=== PATIENT | male | born 1955 | race Caucasian/White ===

== ENCOUNTER 2023-01-05 12:12 | Outpatient (OUT) | payer BC, SELFPAY ==
--- NOTE | 2023-01-05 12:29 | XR_ITS ---
The [address] [address] Patient Name: KATHERINE PONCE MRN: [id number] date: 1955 Sex: M Assigned Patient Location: LAB Current Patient Location: LAB Accession/Order Number: [id number] Exam Date: 01/05/2023 12:25 Report Date: 01/05/2023 12:53 At the request of: SHARLA ARRIAZA Procedure: XR abdomen 1V EXAM: XR abdomen 1V HISTORY: Kidney Stone COMPARISON: None. TECHNIQUE: AP view of the abdomen. FINDINGS: Nonobstructive bowel gas pattern is noted. There is a 15 mm calculus projecting over the right kidney. The osseous structures are intact. XR/XR abdomen 1V IMPRESSION: Nonobstructive bowel gas pattern. Right nephrolithiasis. Electronically authenticated by: SIMI HAQUE Date: 01/05/2023 12:53
[2023-01-06 02:07] LABS: PSA, Free 0.88 ng/mL; Prostate Specific Ag 5.2 ng/mL (0.0-4.0)
== END 2023-01-05 12:13 | disposition home or self-care (01) ==
LOC: LAB 12:16
PROVIDERS: Visit Provider Urology
DX: R97.20 Elevated prostate specific antigen [PSA] (principal); N20.0 Calculus of kidney
CPT/HCPCS: 36415; 74018; 84153; 84154

== ENCOUNTER 2023-01-19 09:20 | Outpatient (OUT) | payer BC, SELFPAY ==
--- NOTE | 2023-01-19 09:36 | CT_ITS ---
The [address] [address] Patient Name: KATHERINE PONCE MRN: [id number] date: 1955 Sex: M Assigned Patient Location: CT Current Patient Location: CT Accession/Order Number: [id number] Exam Date: 01/19/2023 09:30 Report Date: 01/19/2023 10:05 At the request of: SHARLA ARRIAZA Procedure: CT abdomen pelvis wo con CT abdomen pelvis wo con, 01/19/2023 9:30 AM EDT, [facility]001 INDICATION: N20.0 right flank discomfort. History of renal calculi. COMPARISON: CT from 07/28/2022. TECHNIQUE: Helical images were obtained without intravenous contrast. Coronal and sagittal reconstructions were also generated. Dose reduction techniques were achieved by using automated exposure control and/or adjustment of mA and/or kV according to patient size and/or use of iterative reconstruction technique. Oral contrast: None. FINDINGS: There is minimal scarring in the left lower lobe. Note is again made of an approximately 6.5 x 5.1 cm sharply marginated fluid density collection in the right cardiophrenic angle likely representing a pericardial cyst, not completely imaged on this exam. Subcentimeter hypodense focus is again seen in the left hepatic lobe, indeterminate due to its small size, likely representing a cyst. The gallbladder appears unremarkable. The pancreas is within normal limits. The spleen appears unremarkable. The adrenal glands appear unremarkable. Nonobstructing renal calculi are again seen bilaterally. An 8 mm calculus previously seen in the inferior pole of the right kidney is no longer identified, with apparent interval passage. No significant interval change is seen in right renal cysts, the largest measuring 7 cm diameter. The vasculature appears unremarkable. There is no pathologic retroperitoneal adenopathy. The urinary bladder appears unremarkable. Note is again made of prominent prostate gland measuring 5.8 cm transverse. There is no evidence of pathologic pelvic adenopathy. There is no evidence of free air or free fluid. The bowel loops appear unremarkable. The appendix is not definitely visualized. No significant hernia is identified. The osseous structures appear unremarkable. CT/CT abdomen pelvis wo con IMPRESSION: Bilateral renal calculi are again noted. There has been apparent interval passage of an 8 mm calculus previously seen in the right kidney. No hydronephrosis or perinephric process is seen. 7 cm right renal cyst is again noted. Incidental findings, including an apparent pericardial cyst which is incompletely imaged on this exam. Electronically authenticated by: SIENNA HENRIQUEZ Date: 01/19/2023 10:05
== END 2023-01-19 09:21 | disposition home or self-care (01) ==
LOC: CT 09:20
PROVIDERS: Visit Provider Urology
DX: N20.0 Calculus of kidney (principal); N28.1 Cyst of kidney, acquired
CPT/HCPCS: 74176

== ENCOUNTER 2023-06-29 11:22 | Outpatient (OUT) | payer BC, SELFPAY ==
--- OUTSIDE RECORDS SUMMARY | 2023-06-29 11:31 | XMS_ITS | CCD ---
Author Organization [facility] Care Team Providers Care Operational Intelligence Officer Name Role Phone MONICA PARHAM Primary Care Physician Unavailab DO Krishna Beasley Attending Provider [phone] DO Monica Parham Primary Care Provider Monica Parham Primary Care Unavailable Krishna Solorio Attending UnavailKrishna Shoemaker Admitting Unavailabl e SOFIYA ., DR MAGDALENO Admitting Unavailable MONTIEL ., DR MAGDALENO Consulting Unavailable MONTIEL ., DR MAGDALENO Attending Unavailable WINTER EHRNÁNDEZ Consulting Unavailable REQUEST, DR NONE LISTED Consulting Unavaila ble MONTIEL ., DR MAGDALENO Admitting Unavailable MISC, DR HOWARD Primary Care Unavailable MONTIEL ., DR MAGDALENO Consulting Unavailable MONTIEL ., DR MAGDALENO Attending Unavailable WINTER HERNÁNDEZ Consulting Unavailable MONTIEL ., DR MAGDALENO Admitting Unavailable REQUEST, DR NONE LISTED Primary Care Unavaila ble MONTIEL ., DR MAGDALENO Consulting Unavailable MONTIEL ., DR MAGDALENO Attending Unavailable ZIEBER, DR JOHANNA Layton Consulting Unavailable MADISON BROUSSARD Consulting Unavailable JOHANNA MCDOWELL Consulting Unavailable CHANA, DR GIOVANNY Beaulieu Consulting Unavailable DONALD BHAGAT Admitting Unavailable DONALD BHAGAT Attending Unavailable ARTHUR ONTIVEROS Consulting Unavailable LEOLADONALD Consulting Unavailable CHANA, DR GIOVANNY Beaulieu Consulting Unavailable DONALD BHAGAT Admitting Unavailable DONALD BHAGAT Attending Unavailable DONALD BHAGAT Consulting Unavailable SARAVANANC, DR HOWARD Primary Care Unavailable MONTIEL ., DR MAGDALENO Admitting Unavailable MONTIEL ., DR MAGDALENO Consulting Unavailable MONTIEL ., DR MAGDALENO Attending Unavailable PEDRO II, SHANIA Consulting Unavailable CLEOPATRA DAVIDSON Consulting Unavailable TERA, DR HOWARD Primary Care Unavailable CHANA, DR GIOVANNY Beaulieu Consulting Unavailable DIAB ., SANTHOSH Admitting Unavailable DIAB ., SANTHOSH Attending Unavailable GRECHNY ., BETTY ROCKWELL Consulting Unavailabl e MISC, DR HOWARD Primary Care Unavailable SHAYNA, DR JOE Cardona Admitting Unavailcallie CORRAL, DR JOE Cardona Attending Unavailcallie e SHAYNA, DR JOE Cardona Consulting Unavailabl e CYNTHIA, DR JOHANNA Layton Consulting Unavailable Jose Alfredo , Keerthi Lopez Primary Care Provider [phone] BRITT REYES Attending Unavailable JOSE ALFREDO, MUHAMID M Attending Unavailable JOSE ALFREDO, MUHAMID M Referring Unavailable JOSE ALFREDO, MUHAMID M Primary Care Unavailable JOSE ALFREDO, MUHAMID M Attending Unavailable JOSE ALFREDO, MUHAMID M Referring Unavailable JOSE ALFREDO, MUHAMID M Primary Care Unavailable JOSE ALFREDO, MUHAMID M Attending Unavailable JOSE ALFREDO, MUHAMID M Referring Unavailable JOSE ALFREDO, MUHAMID M Primary Care Unavailable JOSE ALFREDO, MUHAMID M Attending Unavailable CORI, MONICA G Referring Unavailable CORI, MONICA G Primary Care Unavailable JEANA PARRA Attending Unavailable JOSE ALFREDO, MUHAMID M Referring Unavailable JOSE ALFREDO, MUHAMID M Primary Care Unavailable CORI, MONICA Primary Care Unavailable Sharla MONTIEL Attending Unavailable CORI, MONICA Primary Care Unavailable MONTIEL, Sharla Layton Attending Unavailable CORI, MONICA Primary Care Unavailable MONTIEL, Sharla Layton Attending Unavailable CORI, MONICA Primary Care Unavailable MONTIEL, Sharla Layton Attending Unavailable MONTIEL, Sharla Layton Admitting Unavailable CORI, MONICA Primary Care Unavailable MONTIEL, Sharla Layton Attending Unavailable CORI, MONICA Primary Care Unavailable MONTIEL, Sharla Layton Attending Unavailable CORI, MONICA Primary Care Unavailable MONTIEL, Sharla Layton Attending Unavailable CORI, MONICA Primary Care Unavailable MONTIEL, Sharla Layton Attending Unavailable Allergies Allergy Classification Reported Allergen(s) Allergy Type Date of Onset Reaction(s) Facility (10 sources) Sulfamethoxazole / Trimethoprim; Translations: [sulfamethoxazole-t rimethoprim] Drug Allergy Unknown (qualifier value) [facility] (10 sources) Sulfonamides (Antibiotic); Translations: [sulfa drugs] Drug allergy Itching (finding), Weal (disorder) [facility] (3 sources) Sulfonamides (Antibiotic); Translations: [SULFA (SULFONAMIDE ANTIBIOTICS)] Drug allergy (disorder) 09-22-19 17 [facility] (1 source) Sulfonamides (Antibiotic) Drug allergy (disorder) 08-23-19 17 [facility] (3 sources) Sulfonamides (Antibiotic) Propensity to adverse reactions to drug 09-22-19 17 [facility] Medications Current Medications Medication Drug Class(es) Dates Sig (Normalized) Sig (Original) acetaminophen 325 mg / HYDROcodone bitartrate 5 mg oral tablet (1 source) Opioid Agonist Start: 06-12-2018 Hydrocodone-Acetamin ophen Active TABLET June 11, 2018 11:00pm cholecalciferol, vitamin D3, (VITAMIN D3 ORAL) (3 sources) take 1 tablet by mouth in the morning cholecalciferol, vitamin D3, (VITAMIN D3 ORAL) Take 1 tablet by mouth in the morning. 0 Active ciprofloxacin 500 mg oral tablet (1 source) Quinolone Antimicrobial Start: 05-23-2023 End: 06-02-2023 take 1 tablet by mouth in the morning, then take 1 tablet by mouth at bedtime ciprofloxacin HCl (CIPRO) 500 mg tablet Take 1 tablet (500 mg total) by mouth in the morning and 1 tablet (500 mg total) before bedtime. Do all this for 10 days. 20 tablet 0 05/23/2023 06/02/2023 Active docosahexaenoic acid/epa (FISH OIL ORAL) (3 sources) take 3 capsules by mouth in the morning docosahexaenoic acid/epa (FISH OIL ORAL) Take 3 capsules by mouth in the morning. 0 Active doxycycline hyclate 100 mg oral capsule (1 source) Tetracycline-class Drug Start: 09-18-2022 End: 10-02-2022 take 1 capsule by mouth twice daily doxycycline hyclate 100 mg Cap 100 mg = 1 cap(s), Oral, BID, X 14 day(s), # 28 cap(s), Refills(s) 0, Pharmacy: [facility]/pharmacy #[id number], 179, cm, 05/01/22 9:25:00 EST, Height/Length Dosing, 88, kg, 05/01/22 9:25:00 EST, Weight Dosing Start Date: 09/18/22 Stop Date: 10/02/22 Status: Ordered dutasteride 0.5 mg oral capsule (4 sources) 5-alpha Reductase Inhibitor Start: 10-09-2022 take 1 capsule by mouth once daily dutasteride 0.5 mg Cap 0.5 mg = 1 cap(s), Oral, Daily, # 30 cap(s), Refills(s) 11, Pharmacy: [facility] #[id number], 178, cm, 10/09/22 8:32:00 EDT, Height/Length Dosing, 91, kg, 10/09/22 8:32:00 EDT, Weight Dosing Start Date: 10/09/22 Status: Ordered Fish Oils (9 sources) Start: 08-17-2021 Fish Oil Oral, Refill(s) 0 Start Date: 08/17/21 Status: Ordered ibuprofen 800 mg oral tablet (1 source) Nonsteroidal Anti-inflammatory Drug Start: 05-23-2023 ibuprofen (MOTRIN) 800 mg tablet Take 1 tablet (800 mg total) by mouth in the morning and 1 tablet (800 mg total) at noon and 1 tablet (800 mg total) in the evening. 30 tablet 0 05/23/2023 Active 1 ml ixekizumab 80 mg/ml auto-injector (3 sources) Interleukin-17A Antagonist Start: 10-17-2021 TALTZ AUTOINJECTOR 80 mg/mL auto-injector Inject 80 mg under the skin every 28 days. 0 10/17/2021 Active levoFLOXacin 500 mg oral tablet (1 source) Quinolone Antimicrobial Start: 05-01-2022 End: 05-15-2022 take 1 tablet by mouth once daily Levaquin 500 mg Tab 500 mg = 1 tab(s), Oral, Daily, X 14 day(s), # 14 tab(s), Refills(s) 0, Pharmacy: [facility]/pharmacy #[id number], 179, cm, 05/01/22 9:25:00 EST, Height/Length Dosing, 88, kg, 05/01/22 9:25:00 EST, Weight Dosing Start Date: 05/01/22 Stop Date: 05/15/22 Status: Ordered naproxen 500 mg oral tablet (1 source) Nonsteroidal Anti-inflammatory Drug Start: 06-12-2018 Naproxen Active TABLET June 11, 2018 11:00pm potassium citrate 10 meq extended release oral tablet (11 sources) Start: 09-18-2022 potassium CITRATE 10 mEq ER Tab 10 mEq, 1 tab(s), Oral, BID, 90 tab(s), Refill(s) 3, [facility]/pharmacy #[id number], 179, cm, 05/01/22 9:25:00 EST, Height/Length Dosing, 88, kg, 05/01/22 9:25:00 EST, Weight Dosing Start Date: 09/18/22 Status: Ordered Start: 10-28-2021 potassium CITR ATE 10 mEq ER Tab 10 mEq, 1 tab(s), Oral, BID, 90 tab(s), Refill(s) 3, [facility]/pharmacy #[id number], 177.8, cm, 10/28/21 10:29:00 EDT, Height/Length Dosing, 92.3, kg, 10/28/21 10:29:00 EDT, Weight Dosing Start Date: 10/28/21 Status: Ordered take 1 tablet by gisella th in the morning POTASSIUM CITRATE ORAL Take 1 tablet by mouth in the morning and 1 tablet before bedtime. 0 Active tamsulosin hydrochloride 0.4 mg oral capsule (5 sources) alpha-Adrenergic Gaurang Start: 05-30-2022 take 1 capsule by mouth once daily tamsulosin 0.4 mg Cap 0.4 mg = 1 cap(s), Oral, Daily, # 90 cap(s), Refills(s) 3, [id number], 179, cm, 05/01/22 9:25:00 EST, Height/Length Dosing, 88, kg, 05/01/22 9:25:00 EST, Weight Dosing Start Date: 05/30/22 Status: Ordered Start: 06-13-2018 tamsulosin 0.4 mg Cap Refills(s) 0 Start Date: 04/19/22 Status: Ordered Vitamin D3 (9 sources) Start: 08-17-2021 Vitamin D3 Ref ills(s) 0 Start Date: 08/17/21 Status: Ordered Zinc (9 sources) Start: 08-17-2021 take 1 mg by mouth o nce daily Zinc mg, Oral, Daily, Refills(s) 0 Start Date: 08/17/21 Status: Ordered Problems Active Problems Problem Classification Problem Date Documented Date Episodic/Chronic Abdominal hernia (6 sources) Inguinal hernia; Translations: [Unilateral inguinal hernia, without obstruction or gangrene, not specified as recurrent] Onset: 04-24-2023 04-24-2023 Episodic Abdominal pain (13 sources) Flank pain; Translations: [Unspecified abdominal pain] Onset: 08-22-2022 10-11-2018 Episodic Genitourinary symptoms and ill-defined conditions (20 sources) Blood in urine; Translations: [Gross hematuria] Onset: 08-16-2021 Episodic Hyperplasia of prostate (20 sources) Benign prostatic hypertrophy with outflow obstruction; Translations: [Benign prostatic hyperplasia with lower urinary tract symptoms] Onset: 08-16-2021 Chronic Inflammatory conditions of male genital organs (1 source) Chronic prostatitis; Translations: [CHRONIC PROSTATITIS] Onset: 08-22-2022 Chronic Inflammatory conditions of male genital organs (12 sources) Prostatitis; Translations: [Acute epididymitis] Onset: 05-23-2023 02-07-2019 Episodic Osteoarthritis (3 sources) Arthritis; Translations: [Unspecified osteoarthritis, unspecified site] Onset: 07-17-2022 07-17-2022 Chronic Other aftercare (1 source) Other penitentiary (current) drug therapy; Translations: [OTH RESIDENTIAL CURRENT DRUG THERAPY] Onset: 08-28-2022 Episodic Other connective tissue disease (1 source) Pain in right leg; Translations: [PAIN IN RIGHT LEG] Onset: 08-28-2022 Episodic Other diseases of bladder and urethra (1 source) Unspecified urethral stricture, male, unspecified site; Translations: [UNSP URETHRAL STRCT MALE UNSP SITE] Onset: 08-22-2022 Episodic Other diseases of kidney and ureters (3 sources) Urinary tract obstruction; Translations: [Other obstructive and reflux uropathy] Onset: 08-16-2021 Episodic Other injuries and conditions due to external causes (4 sources) Foreign body in bladder; Translations: [Foreign body in bladder, initial encounter] Onset: 08-29-2022 Episodic Other nervous system disorders (3 sources) Paresthesia of skin; Translations: [PARESTHESIA OF SKIN] Onset: 08-25-2022 Episodic Other screening for suspected conditions (not mental disorders or infectious disease) (16 sources) Raised prostate specific antigen; Translations: [Elevated prostate specific antigen [PSA]] Onset: 08-16-2021 Episodic Residual codes; unclassified (1 source) Other specified postprocedural states; Translations: [OTH SPECIFIED POSTPROCEDURAL STATES] Onset: 08-28-2022 Episodic Spondylosis; intervertebral disc disorders; other back problems (6 sources) Other intervertebral disc displacement, lumbar region; Translations: [Displacement of lumbar intervertebral disc without myelopathy] Onset: 09-21-2016 09-21-2016 Chronic Unclassified (1 source) Facial weakness; Translations: [Facial weakness] Onset: 04-27-2022 Unclassified (1 source) Establish Care Onset: 03-22-2023 Past or Other Problems Problem Classification Problem Date Documented Date Episodic/Chronic Calculus of urinary tract (20 sources) History of calculus of kidney; Translations: [Personal history of urinary calculi] Onset: 08-16-2021 Episodic Mood disorders (3 sources) Mood disorders Onset: 03-22-2023 03-22-2023 Nausea and vomiting (3 sources) Postoperative nausea and vomiting; Translations: [Nausea with vomiting, unspecified] Onset: 07-17-2022 07-17-2022 Episodic Spondylosis; intervertebral disc disorders; other back problems (13 sources) Backache; Translations: [Sciatica, right side] Onset: 07-17-2022 02-10-2019 Episodic Results Test Name Value Interpretation Reference Range Facility US RETROPERITONEAL COMPLETEo n 04-26-2023 US RETROPERITONEAL COMPLETE US RETROPERITONEAL COMPLETE US RETROPERITONEAL COMPLETE HISTORY: History of nephrolithiasis with recurrent left flank pain. COMPARISON: Renal ultrasound 06/14/2022, CT abdomen and pelvis without contrast 07/20/2022, 05/12/2022. TECHNIQUE: Grayscale and color Doppler sonographic images of the urinary bladder and both kidneys. FINDINGS: Right kidney: * 11.8 x 5.6 x 6.2 cm. Normal echogenicity. * Redemonstration of large anechoic focus with smooth margins and posterior enhancement measuring 4.4 x 5.9 x 4.8 cm, compatible with simple renal cyst, no follow-up imaging required. Left kidney: * 10.8 x 5.6 x 4.3 cm. Normal echogenicity. * No hydronephrosis, contour-deforming mass, or calculi demonstrated. The urinary bladder measures 150 mL prevoid. Bilateral ureteral jets visualized. Enlarged prostate measuring 6.1 x 5.2 x 5.7 cm, total volume of 95 mL. IMPRESSION: * No renal calculi identified. * Enlarged prostate volume measuring 95 mL. Approved by Resident Delmar Macias MD on 04/26/2023 10:41 AM Owen Dolan have personally reviewed the image(s) and agree with and/or edited the report Finalized by Owen Pena on 04/26/2023 4:07 PM [facility] US SCROTUMon 04-26-2023 US SCROTUM US SCROTUM US SCROTUM HISTORY: Left testicular pain, concern for inguinal hernia. COMPARISON: CT abdomen and pelvis without contrast 07/20/2022, 05/12/2022. TECHNIQUE: Real-time grayscale ultrasound of the scrotum and testicles. Color Doppler also used. FINDINGS: Right testicle measures 4.2 x 2.6 x 2.5 cm and demonstrates normal echotexture. Left testicle measures 3.8 x 2.0 x 2.8 cm and demonstrates normal echotexture. Epididymis is unremarkable bilaterally. The right epididymis measures 0.9 x 0.7 cm. The left epididymis measures 0.9 x 0.7 cm. Color Doppler demonstrates normal testicular blood flow bilaterally. Physiologic volume fluid within the testes. IMPRESSION: * Negative scrotal ultrasound. Normal sonographic appearance of the testes. * No definite inguinal hernia identified sonographically. Approved by Resident Delmar Macias MD on 04/26/2023 10:42 AM Owen Dolan have personally reviewed the image(s) and agree with and/or edited the report Finalized by Owen Pena on 04/26/2023 11:02 AM [facility] RAD - CT Reporton 01-26-2023 RAD - CT Report [id number] #[id number] [facility] RAD - CT Report [id number] #1.00TIFF [facility] Ambulatory Visit Summaryon 1 Ambulatory Visit Summary LOKESH PONCE :1955 Visit Date:01/08/2023 Ambulatory Visit Instructions Your Diagnosis Gross hematuria BPH with urinary obstruction Kidney stone Elevated PSA Tests Performed Urnls Dip Stick Auto w/o Microscopy POC [id number] CT Abdomen/Pelvis w/o Contrast -- Results Pending -- Please visit your patient portal for your results or contact your primary care physician. Your Care Team Attending Physician - Sharla MONTIEL MD Primary Care Physician - MONICA PARHAM DO This Is Your Medications List dutasteride (dutasteride 0.5 mg Cap) potassium citrate (potassium CITRATE 10 mEq ER Tab) Contact prescribing physician if questions or concerns cholecalciferol (Vitamin D3) omega-3 polyunsaturated fatty acids (Fish Oil) Procedures Performed Cystoscopic removal of ureteric stent (08/29/2022), TURP - Transurethral resection of prostate (08/17/2022), Cystoscopy (03/12/2020), TURP - Transurethral resection of prostate (08/31/2016), Cystoscopy (07/04/2016), Cystoscopy (09/30/2014), TURP - Transurethral resection of prostate (04/21/2010), Urodynamics (02/04/2010), Transrectal biopsy of prostate using ultrasound (US) guidance (07/2008), Cystoscopy (07/2005), Appendectomy, Tonsillectomy. Discharge Vitals Heart Rate (Peripheral) 80 Respiratory Rate 16 Blood Pressure 158/91 Height 178 cm Height 70 in Weight 91 kg Weight 200.2 lb BMI 28.72 What to do next Scheduled Follow-Up Appointments Sunday 9:45 AM EDT With: Sharla MONTIEL MD Where: [facility] Lab Reportson 01-08-2023 Lab Reports [id number] #1.00TIFF [facility] Patient Educationon 01-09-20 23 Patient Education Nephrology Dietary Guidelines to Help Prevent Kidney Stones Kidney stones are deposits of minerals and salts that form inside your kidneys. Your risk of developing kidney stones may be greater depending on your diet, your lifestyle, the medicines you take, and whether you have certain medical conditions. Most people can lower their chances of developing kidney stones by following the instructions below. Your dietitian may give you more specific instructions depending on your overall health and the type of kidney stones you tend to develop. What are tips for following this plan? Reading food labels ? Choose foods with no salt added or low-salt labels. Limit your salt (sodium) intake to less than 1,500 mg a day. ? Choose foods with calcium for each meal and snack. Try to eat about 300 mg of calcium at each meal. Foods that contain 200?500 mg of calcium a serving include: ? 8 oz (237 mL) of milk, calcium-fortifiednon -dairy milk, and calcium-fortifiedfru it juice. Calcium-fortified means that calcium has been added to these drinks. ? 8 oz (237 mL) of kefir, yogurt, and soy yogurt. ? 4 oz (114 g) of tofu. ? 1 oz (28 g) of cheese. ? 1 cup (150 g) of dried figs. ? 1 cup (91 g) of cooked broccoli. ? One 3 oz (85 g) can of sardines or mackerel. Most people need 1,000?1,500 mg of calcium a day. Talk to your dietitian about how much calcium is recommended for you. Shopping ? Buy plenty of fresh fruits and vegetables. Most people do not need to avoid fruits and vegetables, even if these foods contain nutrients that may contribute to kidney stones. ? When shopping for convenience foods, choose: ? Whole pieces of fruit. ? Pre-made salads with dressing on the side. ? Low-fat fruit and yogurt smoothies. ? Avoid buying frozen meals or prepared deli foods. These can be high in sodium. ? Look for foods with live cultures, such as yogurt and kefir. ? Choose high-fiber grains, such as whole-wheat breads, oat bran, and wheat cereals. Cooking ? Do not add salt to food when cooking. Place a salt shaker on the table and allow each person to add his or her own salt to taste. ? Use vegetable protein, such as beans, textured vegetable protein (TVP), or tofu, instead of meat in pasta, casseroles, and soups. Meal planning ? Eat less salt, if told by your dietitian. To do this: ? Avoid eating processed or pre-made food. ? Avoid eating fast food. ? Eat less animal protein, including cheese, meat, poultry, or fish, if told by your dietitian. To do this: ? Limit the number of times you have meat, poultry, fish, or cheese each week. Eat a diet free of meat at least 2 days a week. ? Eat only one serving each day of meat, poultry, fish, or seafood. ? When you prepare animal protein, cut pieces into small portion sizes. For most meat and fish, one serving is about the size of the palm of your hand. ? Eat at least five servings of fresh fruits and vegetables each day. To do this: ? Keep fruits and vegetables on hand for snacks. ? Eat one piece of fruit or a handful of berries with breakfast. ? Have a salad and fruit at lunch. ? Have two kinds of vegetables at dinner. ? Limit foods that are high in a substance called oxalate. These include: ? Spinach (cooked), rhubarb, beets, sweet potatoes, and Mauritanian chard. ? Peanuts. ? Potato chips, libyan fries, and baked potatoes with skin on. ? Nuts and nut products. ? Chocolate. ? If you regularly take a diuretic medicine, make sure to eat at least 1 or 2 servings of fruits or vegetables that are high in potassium each day. These include: ? Avocado. ? Banana. ? Hurley, prune, carrot, or tomato juice. ? Baked potato. ? Cabbage. ? Beans and split peas. Lifestyle ? Drink enough fluid to keep your urine pale yellow. This is the most important thing you can do. Spread your fluid intake throughout the day. ? If you drink alcohol: ? Limit how much you use to: ? 0?1 drink a day for women who are not . ? 0?2 drinks a day for men. ? Be aware of how much alcohol is in your drink. In the [place] one drink equals one 12 oz bottle of beer (355 mL), one 5 oz glass of wine (148 mL), or one 1? oz glass of hard liquor (44 mL). ? Lose weight if told by your health care provider. Work with your dietitian to find an eating plan and weight loss strategies that work best for you. General information ? Talk to your health care provider and dietitian about taking daily supplements. You may be told the following depending on your health and the cause of your kidney stones: ? Not to take supplements with vitamin C. ? To take a calcium supplement. ? To take a daily probiotic supplement. ? To take other supplements such as magnesium, fish oil, or vitamin B6. ? Take dqpw-fzl-xlnhhch and prescription medicines only as told by your health care provider. These include supplements. What foods should I limit? Limit your in (more content not included)... [facility] RAD - MISCon 01-08-2023 [facility] [id number] #1.00TIFF [facility] Urology Office/Clinic Noteon 01-08-2023 Urology Office/Clinic Note Chief Complaint 3m KUB & PSA HPI Staff 3m DX: Gross Hematuria, BPH, Kidney Stone & Elevated PSA S/P TURP 08/17/22 *Started on Dutasteride therapy at time of last encounter KUB 01/05/23 PSA F/T 01/05/23- 5.2 & 16.9% Occasional intermittent RT sided discomfort. Has not noticed any changes with Dutasteride. Denies concerns with stream. Denies visible blood in urine. History of Present Illness Tests reviewed: reviewed UA, KUB, and PSA I have reviewed the previous health record information and history for this patient from . I have reviewed and verified the staff HPI to be accurate for this encounter. There have been no associated fever, chills, flank pain, or blood in the urine. Denies any urinary infections since last encounter. Review of Systems PHQ Score Initial Depression Screen Score: 0 ROS - Provider Constitutional: denies weight loss, denies hot flashes. Eyes: denies eye problems. Gastrointestinal: denies nausea, denies vomiting. Cardiovascular: denies chest pain or angina. Integumentary: no dryness Musculoskeletal: denies musculoskeletal symptoms. ENMT: denies otolaryngeal symptoms. Respiratory: no shortness of breath. Heme/Lymph: denies easy bleeding tendency, denies easy bruising tendency. Psychiatric: no confusion, no anxiety. Genitourinary: See HPI. Physical Exam Vitals & Measurements HR: 80(Peripheral) RR: 16 BP: 158/91 HT: 70 in HT: 178 cm WT: 91 kg WT: 200.2 lb BMI: 28.72 General Appearance: alert, no distress, well nourished, well developed male. Assessment/Plan 1. Gross hematuria (R31.0: Gross hematuria) Urine cx on 04/21/22 and 09/15/22 - negative Pt had been experiencing intermittent blood in his urine since his TURP. UA today shows trace-lysed blood. Pt states that he has not seen any blood in his urine since last OV. Will continue to monitor. 2. BPH with urinary obstruction (N40.1: Benign prostatic hyperplasia with lower urinary tract symptoms) S/p TURP done 08/17/22, pathology showed benign hyperplasia w/ chronic prostatitis. Pt states he has R flank pain that has decreased since TURP. Discussed anatomical complications found with TURP, with pt having a median lobe in addition to two side lobes. Explained to pt this causes bleeding for a longer amount of time following the procedure. Pt has been taking Dutasteride 0.5 QD. Pt denies any SE's. Pt states that he does not have any urinary complaints. Advised pt to continue taking the Dutasteride to prevent future sxs. Advised pot that it takes 6 mos to fully kick in, pt is 3 mos in. 3. Kidney stone (N20.0: Calculus of kidney) KUB done 10/05/21 - bilateral nephrolithiasis, R larger than L. S/p R ESWL on 10/06/21. Passed stone on 10/09/21. Stone analysis shows 70% uric acid and 30% ca ox. Previous metabolic w/u - low normal citric acid and mildly low urine volume. KUB done 04/19/22 at [facility] - right renal stone. No ureteral calcifications. CT scan done 05/12/22 - right sided nephrolithiasis, enlarged prostate. KUB done 06/14/22 - right nephrolithiasis. CHET done 06/14/22 - nonobstructing renal stones, probable right renal cyst, enlarged prostate. S/p Cysto/R ureteroscopy with ureteral dilation/R stent placement done 08/17/22 S/p R stent removal done 08/29/22 Pt is currently taking Potassium Citrate 10 mEq BID. KUB 01/05/23 - 15mm stone projecting over the Rt kidney, upon personal review the stone is a linear stone, may not be in the kidney may be in his bowel Pt states that he felt he had passed 1 or 2 stones last week or so, did not think to collect the possible stones. Discussed imaging findings with pt, report notes stone in the Rt kidney. Pt denies any stone passage signs. Advised pt that the noted findings looks like a pill in his bowel. Discussed getting a CHET or CT w/o Con to determine if this is a stone for sure. Pt states that he is fine with this plan. Follow up in 6 mos w/PSA. All questions/concerns were discussed. Pt to call the office if he encounters any issues prior. Pt acknowledges understanding. -Will order a CT AP w/o Con. Pt will call for results. 4. Elevated PSA (R97.20: Elevated prostate specific antigen [PSA]) PSA 03/08/20 - 4.79 06/03/21 - 5.03 04/26/22 - 4.79 01/05/23 - 5.20 & 16.9% Last MRI 03/10/19 at [facility] - negative. TRUS/bx several years ago - negative. Discussed PSA results with pt, slightly increased from previous level. Will continue to monitor. Follow-up With When Contact Information Sharla MONTIEL MD, URL In 6 months [facility] [address], [place] [facility] [place] [address]- Additional Instructions: w/PSA Patient Education Dietary Guidelines to Help Prevent Kidney Stones I, Sierra Pemberton , personally scribed for Dr. Montiel on 01/08/2023 10:37:12. . Documentation recorded by the scribe, Sierra Pemberton, accurately reflects the services(s) I performed and decisions made by me. Pro (more content not included)... [facility] Comment on above: Result Comment: Elec tronically Signed By: Sharla MONTIEL MD\.br\Date and Time Signed: 01/08/23 10:40 EDT\.br\Electronically Co-Signed By: Sierra Pemberton.br\Date and Time Co-Signed: 01/08/23 10:37 EDT Ambulatory Visit Summaryon 0 10-09-2022 Ambulatory Visit Summary LOKESH PONCE :1955 Visit Date:05/01/2022 Ambulatory Visit Instructions Your Diagnosis Kidney stone Gross hematuria BPH with urinary obstruction Elevated PSA Tests Performed Urnls Dip Stick Auto w/o Microscopy POC 7[address]12 CT Abdomen/Pelvis w/o Contrast -- Results Pending -- XR Abdomen 1 View -- Results Pending -- Please visit your patient portal for your results or contact your primary care physician. Your Care Team Attending Physician - Sharla MONTIEL MD Primary Care Physician - MONICA PARHAM DO This Is Your Medications List potassium citrate (potassium CITRATE 10 mEq ER Tab) Contact prescribing physician if questions or concerns cholecalciferol (Vitamin D3) omega-3 polyunsaturated fatty acids (Fish Oil) zinc sulfate (Zinc) Procedures Performed Cystoscopic removal of ureteric stent (08/29/2022), Cystoscopy (03/12/2020), TURP - Transurethral resection of prostate (08/31/2016), Cystoscopy (07/04/2016), Cystoscopy (09/30/2014), TURP - Transurethral resection of prostate (04/21/2010), Urodynamics (02/04/2010), Transrectal biopsy of prostate using ultrasound (US) guidance (07/2008), Cystoscopy (07/2005), Appendectomy, Tonsillectomy. What to do next Scheduled Follow-Up Appointments Sunday 9:30 AM EDT With: Sharla MONTIEL MD Where: [facility] Patient Educationon 10-10-19 23 Patient Education Urology Hematuria, Adult Hematuria is blood in the urine. Blood may be visible in the urine, or it may be identified with a test. This condition can be caused by infections of the bladder, urethra, kidney, or prostate. Other possible causes include: ? Kidney stones. ? Cancer of the urinary tract. ? Too much calcium in the urine. ? Conditions that are passed from parent to child (inherited conditions). ? Exercise that requires a lot of energy. Infections can usually be treated with medicine, and a kidney stone usually will pass through your urine. If neither of these is the cause of your hematuria, more tests may be needed to identify the cause of your symptoms. It is very important to tell your health care provider about any blood in your urine, even if it is painless or the blood stops without treatment. Blood in the urine, when it happens and then stops and then happens again, can be a symptom of a very serious condition, including cancer. There is no pain in the initial stages of many urinary cancers. Follow these instructions at home: Medicines ? Take ajqv-cpn-apltogw and prescription medicines only as told by your health care provider. ? If you were prescribed an antibiotic medicine, take it as told by your health care provider. Do not stop taking the antibiotic even if you start to feel better. Eating and drinking ? Drink enough fluid to keep your urine pale yellow. It is recommended that you drink 3?4 quarts (2.8?3.8 L) a day. If you have been diagnosed with an infection, drinking cranberry juice in addition to large amounts of water is recommended. ? Avoid caffeine, tea, and carbonated beverages. These tend to irritate the bladder. ? Avoid alcohol because it may irritate the prostate (in males). General instructions ? If you have been diagnosed with a kidney stone, follow your health care provider's instructions about straining your urine to catch the stone. ? Empty your bladder often. Avoid holding urine for long periods of time. ? If you are female: ? After a bowel movement, wipe from front to back and use each piece of toilet paper only once. ? Empty your bladder before and after sex. ? Pay attention to any changes in your symptoms. Tell your health care provider about any changes or any new symptoms. ? It is up to you to get the results of any tests. Ask your health care provider, or the department that is doing the test, when your results will be ready. ? Keep all follow-up visits. This is important. Contact a health care provider if: ? You develop back pain. ? You have a fever or chills. ? You have nausea or vomiting. ? Your symptoms do not improve after 3 days. ? Your symptoms get worse. Get help right away if: ? You develop severe vomiting and are unable to take medicine without vomiting. ? You develop severe pain in your back or abdomen even though you are taking medicine. ? You pass a large amount of blood in your urine. ? You pass blood clots in your urine. ? You feel very weak or like you might faint. ? You faint. Summary ? Hematuria is blood in the urine. It has many possible causes. ? It is very important that you tell your health care provider about any blood in your urine, even if it is painless or the blood stops without treatment. ? Take borr-cwr-ajtyoio and prescription medicines only as told by your health care provider. ? Drink enough fluid to keep your urine pale yellow. This information is not intended to replace advice given to you by your health care provider. Make sure you discuss any questions you have with your health care provider. Document Revised: 11/17/2020 Document Reviewed: 11/17/2020 [employer] Patient Education ? 2022 [employer]. [facility] Urology Office/Clinic Noteon 10-09-2022 Urology Office/Clinic Note Chief Complaint post op TURP complications HPI Staff Pt is here for complaints of gross hematuria off and on since his TURP on 08/17/22. Previous dx of kidney stone, BPH with urinary obstruction (TURP 08/17/22) and elevated PSA. *Potassium Citrate 10 mEq ER BID therapy. Stopped Tamsulosin therapy after post op cath removed. Called our office 09/15/22 c/o bladder burning. Tx'd w/Doxy 100 BID x2wks. NEG C&S @ that time. Called our office 09/25 c/o Rt flank pain & visible blood in urine. Called our office again on 10/02/22 c/o visible blood. Last seen the visible blood since 10/02/22. States he was lifting cinder blocks the day prior. Intermittent bladder discomfort. Feels like a stretching Denies any complications voiding. Occasional Rt flank discomfort. History of Present Illness Tests reviewed: reviewed UA I have reviewed the previous health record information and history for this patient from Dr. Montiel. I have reviewed and verified the staff HPI to be accurate for this encounter. There have been no associated fever or chills. Denies any urinary infections since last encounter. Review of Systems PHQ Score Initial Depression Screen Score: 0 ROS - Provider Constitutional: denies weight loss, denies hot flashes. Eyes: denies eye problems. Gastrointestinal: denies nausea, denies vomiting. Cardiovascular: denies chest pain or angina. Integumentary: no dryness Musculoskeletal: denies musculoskeletal symptoms. ENMT: denies otolaryngeal symptoms. Respiratory: no shortness of breath. Heme/Lymph: denies easy bleeding tendency, denies easy bruising tendency. Psychiatric: no confusion, no anxiety. Genitourinary: See HPI. Physical Exam Vitals & Measurements HR: 80(Peripheral) RR: 16 BP: 130/74 HT: 70 in HT: 178 cm WT: 91 kg WT: 200.2 lb BMI: 28.72 General Appearance: alert, no distress, well nourished, well developed male. Genitourinary: normal scrotum, normal testes, normal urethra, normal epididymis, normal vas deferens/spermatic cord. Flank Pain: none. Bladder: nonpalpable. Assessment/Plan 1. Gross hematuria (R31.0: Gross hematuria) Urine cx on 04/21/22 and 09/15/22 - negative Pt has been experiencing intermittent blood in his urine since his TURP, experiencing hematuria for 25 days after but has not seen any blood in the last 10 days. Pt reports he minimized physical activity which helped. UA today shows moderate blood and trace leukocytes. Reassured pt this amount of blood is normal. Educated pt on PO timeline of 3 months for hematuria as well as an enlarged prostate being prone to bleeding. -Continue increased fluid intake -Pt to resume normal activity and it is expected that he will see blood in the urine intermittently until he is done healing. 2. BPH with urinary obstruction (N40.1: Benign prostatic hyperplasia with lower urinary tract symptoms) S/p TURP done 08/17/22, pathology showed benign hyperplasia w/ chronic prostatitis. Pt states he has R flank pain that has decreased since TURP. Discussed anatomical complications found with TURP, with pt having a median lobe in addition to two side lobes. Explained to pt this causes bleeding for a longer amount of time following the procedure. Pt is not currently taking any BPH medications at this time. Did take Tamsulosin in the past. Pt to try Dutasteride to decrease size of prostate and limit episodes of bleeding. Discussed the medication side effects, and the patient will monitor closely for these, as well as for symptom improvement. If severe side effects occur, the medication should be stopped and the office notified. -Begin Dutasteride. Good Rx card provided. Script sent to [facility] [address]. -Follow up in 3 months or sooner if needed. Pt understands and agrees with plan. All questions/concerns were discussed. Pt to call the office if he encounters any issues prior. Pt acknowledges understanding. 3. Kidney stone (N20.0: Calculus of kidney) KUB done 10/05/21 - bilateral nephrolithiasis, R larger than L. S/p R ESWL on 10/06/21. Passed stone on 10/09/21. Stone analysis shows 70% uric acid and 30% ca ox. Previous metabolic w/u - low normal citric acid and mildly low urine volume. KUB done 04/19/22 at [facility] - right renal stone. No ureteral calcifications. CT scan done 05/12/22 - right sided nephrolithiasis, enlarged prostate. KUB done 06/14/22 - right nephrolithiasis. CHET done 06/14/22 - nonobstructing renal stones, probable right renal cyst, enlarged prostate. S/p Cysto/R ureteroscopy with ureteral dilation/R stent placement done 08/17/22 S/p R stent removal done 08/29/22 4. Elevated PSA (R97.20: Elevated prostate specific antigen [PSA]) PSA 03/08/20 - 4.79 06/03/21 - 5.03 04/26/22 - 4.79 Last MRI 03/10/19 at [facility] - negative. TRUS/bx several years ago - negative. Follow-up With When Contact Information SOFIYA MAGANA, Sharla Layton, RICHELLE In 3 months [facility] [address], [place] [address]- [phone] Additional Instruc (more content not included)... [facility] Comment on above: Result Comment: Elec tronically Signed By: Sharla MONTIEL MD\.br\Date and Time Signed: 10/09/22 09:19 EDT\.br\Electronically Co-Signed By: Marilu Meng\.br\Date and Time Co-Signed: 10/09/22 09:15 EDT C Urineon 09-20-2022 Bacteria identified Cx Nom (U) Microbiology PROCEDURE: Urine Culture [R1] SOURCE: U Random BODY SITE: COLLECTED DATE/TIME: 09/18/2022 15:28 EDT RECEIVED DATE/TIME: 09/18/2022 19:46 EDT START DATE/TIME: 09/18/2022 19:46 EDT FREE TEXT SOURCE: Sharla MONTIEL MD, MD, Patrick R FINAL REPORTS Final Report [] Verified Date/Time: 09/20/2022 10:17 EDT No growth at 2 days. Performing Locations R1: This test was performed at: [facility], [address] [place] [address], [phone]- , [place], [facility] Comment on above: Performed By: #### [id number] ####[facility] [address] [place] [address] Ambulatory Visit Summaryon 0 09-18-2022 Ambulatory Visit Summary LOKESH PONCE :1955 Visit Date:09/18/2022 Ambulatory Visit Instructions Your Diagnosis UTI symptoms Tests Performed Urnls Dip Stick Auto w/o Microscopy POC 05702 Your Care Team Attending Physician - Sharla MONTIEL MD Primary Care Physician - MONICA PARHAM DO This Is Your Medications List cholecalciferol (Vitamin D3) omega-3 polyunsaturated fatty acids (Fish Oil) potassium citrate (potassium CITRATE 10 mEq ER Tab) tamsulosin (tamsulosin 0.4 mg Cap) zinc sulfate (Zinc) Procedures Performed Cystoscopic removal of ureteric stent (08/29/2022), Cystoscopy (03/12/2020), TURP - Transurethral resection of prostate (08/31/2016), Cystoscopy (07/04/2016), Cystoscopy (09/30/2014), TURP - Transurethral resection of prostate (04/21/2010), Urodynamics (02/04/2010), Transrectal biopsy of prostate using ultrasound (US) guidance (07/2008), Cystoscopy (07/2005), Appendectomy, Tonsillectomy. What to do next Scheduled Follow-Up Appointments Sunday 11:30 AM EST With: Sharla MONTIEL MD Where: [facility] Consent for Procedure/Surger n 08-30-2022 Consent for Procedure/Surgery [id number] [facility] Patient Educationon 08-30-19 23 Patient Education Urology Transurethral Resection of the Prostate Transurethral resection of the prostate (TURP) is the removal, or resection, of part of the prostate tissue. This procedure is done to treat an enlarged prostate gland (benign prostatic hyperplasia). The goal of TURP is to remove enough prostate tissue to allow for a normal flow of urine. The procedure will allow you to empty your bladder more completely when you urinate so that you can urinate less often. In a transurethral resection, a thin telescope with a light, a camera, and an electric cutting edge (resectoscope) is passed through the urethra and into the prostate. The opening of the urethra is at the end of the penis. Tell a health care provider about: ? Any allergies you have. ? All medicines you are taking, including vitamins, herbs, eye drops, creams, and wirm-pmx-wjudlps medicines. ? Any problems you or family members have had with anesthetic medicines. ? Any bleeding problems you have. ? Any surgeries you have had. ? Any medical conditions you have. ? Any prostate infections you have had. What are the risks? Generally, this is a safe procedure. However, problems may occur, including: ? Infection. ? Bleeding. ? Allergic reactions to medicines. ? Blood in the urine (hematuria). ? Damage to nearby structures or organs. Other problems may occur, but they are rare. They include: ? Dry ejaculation, or having no semen come out during orgasm. ? Erectile dysfunction, or being unable to have or keep an erection. ? Scarring that leads to narrowing of the urethra. This narrowing may block the flow of urine. ? Inability to control when you urinate (incontinence). ? Deep vein thrombosis. This is a blood clot that can develop in your leg. ? TURP syndrome. This can happen when you lose too much sodium during or after the procedure. Some signs and symptoms of this condition include: ? Weakness. ? Headaches. ? Nausea or vomiting. ? Muscle cramping. What happens before the procedure? When to stop eating and drinking Follow instructions from your health care provider about what you may eat and drink before your procedure. These may include: ? 8 hours before your procedure ? Stop eating most foods. Do not eat meat, fried foods, or fatty foods. ? Eat only light foods, such as toast or crackers. ? All liquids are okay except energy drinks and alcohol. ? 6 hours before your procedure ? Stop eating. ? Drink only clear liquids, such as water, clear fruit juice, black coffee, plain tea, and sports drinks. ? Do not drink energy drinks or alcohol. ? 2 hours before your procedure ? Stop drinking all liquids. ? You may be allowed to take medicines with small sips of water. If you do not follow your health care provider's instructions, your procedure may be delayed or canceled. Medicines Ask your health care provider about: ? Changing or stopping your regular medicines. This is especially important if you are taking diabetes medicines or blood thinners. ? Taking medicines such as aspirin and ibuprofen. These medicines can thin your blood. Do not take these medicines unless your health care provider tells you to take them. ? Taking zuxw-vpl-zavfxia medicines, vitamins, herbs, and supplements. Surgery safety Ask your health care provider what steps will be taken to help prevent infection. These steps may include: ? Removing hair at the surgery site. ? Washing skin with a germ-killing soap. ? Taking antibiotic medicine. General instructions ? Do not use any products that contain nicotine or tobacco for at least 4 weeks before the procedure. These products include cigarettes, chewing tobacco, and vaping devices, such as e-cigarettes. If you need help quitting, ask your health care provider. ? If you will be going home right after the procedure, plan to have a responsible adult: ? Take you home from the hospital or clinic. You will not be allowed to drive. ? Care for you for the time you are told. What happens during the procedure? ? An IV will be inserted into one of your veins. ? You will be given one or more of the following: ? A medicine to help you relax (sedative). ? A medicine to make you fall asleep (general anesthetic). ? A medicine that is injected into your spine to numb the area below and slightly above the injection site (spinal anesthetic). ? Your legs will be placed in foot rests (stirrups) so that your legs are apart and your knees are bent. ? The resectoscope will be passed through your urethra to your prostate. ? Parts of your prostate will be resected using the cutting edge of the resectoscope. ? Fluid will be passed to rinse out the cut tissues (irrigation). ? The resectoscope will be removed. ? A small, thin tube (catheter) will be passed through your urethra and into your bladder. The catheter will drain urine into a bag outside of your body. The procedure may vary among health care (more content not included)... [facility] Urology Office/Clinic Noteon 08-29-2022 Urology Office/Clinic Note HPI Staff Cysto Rt stent removal ABX TAKEN. History of Present Illness Tests reviewed: reviewed UA I have reviewed the previous health record information and history for this patient from Dr. Montiel I have reviewed and verified the staff HPI to be accurate for this encounter. There have been no associated fever, chills, flank pain, or blood in the urine. Denies any urinary infections since last encounter. Review of Systems ROS - Provider Constitutional: denies weight loss, denies hot flashes. Eyes: denies eye problems. Gastrointestinal: denies nausea, denies vomiting. Cardiovascular: denies chest pain or angina. Integumentary: no dryness Musculoskeletal: denies musculoskeletal symptoms. ENMT: denies otolaryngeal symptoms. Respiratory: no shortness of breath. Heme/Lymph: denies easy bleeding tendency, denies easy bruising tendency. Psychiatric: no confusion, no anxiety. Genitourinary: See HPI. Physical Exam General Appearance: alert, no distress, well nourished, well developed male. Genitourinary: normal scrotum, normal testes, normal urethra, normal epididymis, normal vas deferens/spermatic cord. Flank Pain: none. Bladder: nonpalpable Procedure Operative Information Anesthesia Type: Local Procedure: Local Cystoscopy with Stent Removal Complications: None Surgical risks, benefits, details of the procedure have been explained to the patient. Full informed consent has been obtained. Intraoperative Information Prepped: Patient is placed in supine position. The patient was prepped with the Betadine solution. Anesthesia: 2% Xylocaine Jelly per urethra. Procedure: Cystoscopy and right stent removal. The flexible Cystoscope was passed in retrograde fashion into the bladder without difficulty. The bladder was viewed in entirety and found to be without tumors or stones. Mild inflammation was seen surrounding the orifice with the stent seen protruding from it. The stent was then grasped and removed in its entirety. Specimens Removed: None Postoperative Information The patient tolerated the procedure well and was subsequently discharged home. Assessment/Plan 1. Foreign body in bladder (T19.1XXA: Foreign body in bladder, initial encounter) Right stent removed IO today w/o complications. 2. Kidney stone (N20.0: Calculus of kidney) KUB done 10/05/21 shows bilateral nephrolithiasis, R larger than L. S/p R ESWL on 10/06/21. Passed stone on 10/09/21. Stone analysis shows 70% uric acid and 30% ca ox. Previous metabolic w/u shows low normal citric acid and mildly low urine volume. Current KUB done 04/19/22 at [facility] shows right renal stone. No ureteral calcifications. CT scan done on 05/12/22 showed right sided nephrolithiasis, enlarged prostate. KUB done on 06/14/22 showed right nephrolithiasis. CHET done on 06/14/22 showed nonobstructing renal stones, probable right renal cyst, enlarged prostate. 3. BPH with urinary obstruction (N40.1: Benign prostatic hyperplasia with lower urinary tract symptoms) S/P TURP done 08/17/22, pathology showed benign hyperplasia w/ chronic prostatitis. 4. Elevated PSA (R97.20: Elevated prostate specific antigen [PSA]) Current PSA 04/26/22 - 4.79, Previous PSA 03/08/20 - 4.79, 06/03/21 - 5.03 Last MRI 03/10/19 at [facility] was negative. neg TRUS/bx several years ago Other obstructive and reflux uropathy (N13.8: Other obstructive and reflux uropathy) Follow-up With When Contact Information SOFIYA MAGANA, Sharla Layton, URL [facility] [address] [place] [address]- Business (1) Additional Instructions: 6 month w/ KUB Patient Education Transurethral Resection of the Prostate Kelsi, Divya Pelaez , personally scribed for Dr. Montiel on 08/29/2022 13:46:40. Documentation recorded by the scribe, Divya Pelaez, accurately reflects the services(s) I performed and decisions made by me. Authenticated by Dr. Montiel on 08/29/2022 13:49:43.. Problem List/Past Medical History Ongoing Back pain BPH with urinary obstruction Elevated PSA Flank pain Foreign body in bladder Gross hematuria Hematuria History of kidney stones Kidney stone Prostatitis Weak urinary stream Historical No qualifying data Procedure/Surgical History Cystoscopic removal of ureteric stent (08/29/2022), Cystoscopy (03/12/2020), TURP - Transurethral resection of prostate (08/31/2016), Cystoscopy (07/04/2016), Cystoscopy (09/30/2014), TURP - Transurethral resection of prostate (04/21/2010), Urodynamics (02/04/2010), Transrectal biopsy of prostate using ultrasound (US) guidance (07/2008), Cystoscopy (07/2005), Appendectomy, Tonsillectomy. Medications Fish Oil, Oral potassium CITRATE 10 mEq ER Tab, 10 mEq= 1 tab(s), Oral, BID, 3 refills tamsulosin 0.4 mg Cap, 0.4 mg= 1 cap(s), Oral, Daily, 3 refills Vitamin D3 Zinc, Oral, Daily Allergies Bactrim DS (Unknown) sulfa drugs (Itchy, Hives) Soci (more content not included)... [facility] Comment on above: Result Comment: Elec tronically Signed By: Sharla MONTIEL MD\.br\Date and Time Signed: 08/29/22 13:49 EDT\.br\Electronically Co-Signed By: Divya Pelaez\.br\Date and Time Co-Signed: 08/29/22 13:46 EDT US LELIA DOP LEG RTon 08-26-19 23 US LELIA DOP LEG RT EXAMINATION: US LELIA DOP LEG RT HISTORY: Deep venous thrombosis COMPARISON: No relevant comparison available. TECHNIQUE: Grayscale, color and Doppler ultrasound FINDINGS: Region: Right leg Thrombus: None Flow: Normal Augmentation: Normal Compressibility: Normal IMPRESSION: No deep or superficial vein thrombus identified in the right leg *Exam performed in accordance with [facility]UM practice guidelines- Peripheral venous ultrasound, June 26, 2009. Electronically authenticated by: GIOVANNY ZAYAS Date: 2022-08-25 15:47 Normal [facility] Pathology Noteon 08-24-2022 Pathology Note [id number] #1.00CD:127 [facility] Ambulatory Visit Summaryon 0 08-21-2022 Ambulatory Visit Summary LOKESH PONCE :1955 Visit Date:08/21/2022 Ambulatory Visit Instructions Your Care Team Attending Physician - Sharla MONTIEL MD Primary Care Physician - MONICA PARHAM DO This Is Your Medications List cholecalciferol (Vitamin D3) omega-3 polyunsaturated fatty acids (Fish Oil) potassium citrate (potassium CITRATE 10 mEq ER Tab) tamsulosin (tamsulosin 0.4 mg Cap) zinc sulfate (Zinc) Procedures Performed Cystoscopy (03/12/2020), TURP - Transurethral resection of prostate (08/31/2016), Cystoscopy (07/04/2016), Cystoscopy (09/30/2014), TURP - Transurethral resection of prostate (04/21/2010), Urodynamics (02/04/2010), Transrectal biopsy of prostate using ultrasound (US) guidance (07/2008), Cystoscopy (07/2005), Appendectomy, Tonsillectomy. What to do next Scheduled Follow-Up Appointments Sunday 10:30 AM EDT With: SOFIYA MAGANA, Sharla Layton Where: [facility] Operative Reporton Operative Report [id number] #1.00CD:127 [facility] ECG 12-Leadon 08-13-2022 ECG 12-Lead [id number] #1.00CD:127 [facility] Lab Reportson 08-13-2022 Lab Reports [id number] #1.00CD:127 [facility] PROF CHEM 8 (BAS METB)on Anion gap [Moles/Vol] 7.8 mmol/L Normal [facility] Comment on above: Performed By: #### B ####[facility] [address] [place], [place] [address]Dr. Leeanna Carlson Calcium [Mass/Vol] 9.1 mg/dL Normal 8.5-10.1 [facility] Comment on above: Performed By: #### B MP ####[facility] [address] [address]Dr. Leeanna Carlson Chloride [Moles/Vol] 105 mmol/L Normal 98-107 [facility] Comment on above: Performed By: #### B MP ####[facility] [address] [place], [place] [address]Dr. Leeanna Carlson CO2 [Moles/Vol] 28.6 mmol/L Normal 21.0-32.0 [facility] Comment on above: Performed By: #### B MP ####[facility] [address] [place], [place] [address]Dr. Leeanna Carlson Creatinine [Mass/Vol] 1.18 mg/dL Normal 0.70-1.30 [facility] Comment on above: Performed By: #### B MP ####[facility] [address] [place], [place] [address]Dr. Leeanna Carlson EGFR-AF ISRAELI >60 Normal >=60 [facility] Comment on above: Performed By: #### B MP ####[facility] [address] [place], [place] [address]Dr. Leeanna Carlson EGFR-NON AF ISRAELI >60 Normal >=60 [facility] Comment on above: Performed By: #### B MP ####[facility] [address] [place], [place] [address]Dr. Leeanna Carlson Glucose [Mass/Vol] 96 mg/dL Normal 74-106 [facility] Comment on above: Performed By: #### B MP ####[facility] [address] [place], [place] [address]Dr. Leeanan Carlson Potassium [Moles/Vol] 4.4 mmol/L Normal 3.5-5.1 [facility] Comment on above: Performed By: #### B MP ####[facility] [address] [place], [place] [address]Dr. Leeanna Carlson Sodium [Moles/Vol] 137 mmol/L Normal 136-145 [facility] Comment on above: Performed By: #### B MP ####[facility] [address] [address]Dr. Leeanna Carlson Urea nitrogen [Mass/Vol] 17.0 mg/dL Normal 7.0-18.0 [facility] Comment on above: Performed By: #### B MP ####[facility] [address] [place], [place] [address]Dr. Leeanna Carlson Urea nitrogen/Creatinine [Mass ratio] 14.4 mg/mg Normal [facility] Comment on above: Performed By: #### B MP ####[facility] [address] [place], [place] [address]Dr. Leeanna Carlson PROTIMEon 08-09-2022 INR Coag (PPP) [Relative time] 1.01 {INR} Normal [facility] Comment on above: Performed By: #### P T, PTT ####[facility] [address] [place], [place] [address]Dr. Leeanna Carlson INR GUIDELINES SEE BELOW Normal [facility] Comment on above: Result Comment: AIRAM RED INR: 2.0 - 3.0 CONDITIONS NOT LISTED BELOW 2.5 - 3.5 FOR PROSTHETIC HEART VALVE REPLACEMENT 2.5 - 3.5 RECURRENT THROMBOSIS Performed By: #### P T, PTT ####[facility] [address] [place], [place] [address]Dr. Leeanna Carlson PT Coag (PPP) [Time] 10.7 s Normal 9.0-11.6 [facility] Comment on above: Performed By: #### P T, PTT ####[facility] [address] [place], [place] [address]Dr. Leeanna Carlson PTTon 08-09-2022 aPTT Coag (Bld) [Time] 29.2 s Normal 22.3-36.2 [facility] Comment on above: Performed By: #### P T, PTT ####[facility] [address] [place], [place] [address]Dr. Leeanna Carlson ED Note-Physicianon 08-05-19 ED Note-Physician [id number] #1.00CD:127 [facility] RAD - CT Reporton 08-04-2022 RAD - CT Report [id number] #1.00CD:127 [facility] Consent for Procedure/Surger yon 08-03-2022 Consent for Procedure/Surgery [id number] #1.00CD:127 [facility] CBC AUTO DIFFon 07-28-2022 BASO # 0.0 103/ul Normal 0.0-0.1 [facility] Comment on above: Performed By: #### C BC #### [facility] [address] [place] [address] Dr. Leeanna Carlson Basophils/100 WBC (Bld) 0.8 % Normal 0.2-2.0 [facility] Comment on above: Performed By: #### C BC #### [facility] [address] [place] [address] Dr. Leeanna Carlson EO # 0.0 103/ul Normal 0.0-0.7 [facility] Comment on above: Performed By: #### C BC #### [facility] [address] [place] [address] Dr. Leeanna Carlson Eosinophils/100 WBC (Bld) 0.6 % Critically low 0.9-7.0 [facility] Comment on above: Performed By: #### C BC #### [facility] [address] [place] [address] Dr. Leeanna aCrlson Erythrocyte distribution width (RBC) [Ratio] 13.3 % Normal 11.0-15.0 [facility] Comment on above: Performed By: #### C BC #### [facility] [address] [place] [address] Dr. Leeanna Carlson Hematocrit (Bld) [Volume fraction] 46.5 % Normal 42.0-54.0 [facility] Comment on above: Performed By: #### C BC #### [facility] [address] [place] [address] Dr. Leeanna Carlson Hemoglobin (Bld) [Mass/Vol] 15.4 g/dL Normal 14.0-18.0 [facility] Comment on above: Performed By: #### C BC #### [facility] [address] [place] [address] Dr. Leeanna Carlson IG # 0.01 10e3/ul Normal 0.00-0.03 [facility] Comment on above: Performed By: #### C BC #### [facility] [address] [place] [address] Dr. Leeanna Carlson IG % 0.2 % Normal 0.0-0.5 [facility] Comment on above: Performed By: #### C BC #### [facility] [address] [place] [address] Dr. Leeanna Carlson LYMPH # 1.8 103/ul Normal 1.2-3.8 [facility] Comment on above: Performed By: #### C BC #### [facility] [address] [place] [address] Dr. Leeanna Carlson Lymphocytes/100 WBC (Bld) 35.0 % Normal 20.5-60.0 [facility] Comment on above: Performed By: #### C BC #### [facility] [address] [place] [address] Dr. Leeanna Carlson MANUAL DIFF REQ NO Normal [facility] Comment on above: Performed By: #### C BC #### [facility] [address] [place] [address] Dr. Leeanna Carlson MCH (RBC) [Entitic mass] 28.4 pg Normal 25.9-34.0 [facility] Comment on above: Performed By: #### C BC #### [facility] [address] [place] [address] Dr. Leeanna Carlson MCHC (RBC) [Mass/Vol] 33.1 g/dL Normal 29.9-35.2 [facility] Comment on above: Performed By: #### C BC #### [facility] [address] [place] [address] Dr. Leeanna Carlson MCV (RBC) [Entitic vol] 85.6 fL Normal 80.0-94.0 [facility] Comment on above: Performed By: #### C BC #### [facility] [address] [place] [address] Dr. Leeanna Carlson MONO # 0.6 103/ul Normal 0.3-0.8 [facility] Comment on above: Performed By: #### C BC #### [facility] [address] [place] [address] Dr. Leeanna Carlson Monocytes/100 WBC (Bld) 11.5 % Normal 1.7-12.0 [facility] Comment on above: Performed By: #### C BC #### [facility] [address] [place] [address] Dr. Leeanna Carlson NEUT # 2.7 103/ul Normal 1.4-6.5 [facility] Comment on above: Performed By: #### C BC #### [facility] [address] [place] [address] Dr. Leeanna Carlson Neutrophils/100 WBC (Bld) 51.9 % Normal 43.0-75.0 [facility] Comment on above: Performed By: #### C BC #### [facility] [address] [place] [address] Dr. Leeanna Carlson Platelet mean volume (Bld) [Entitic vol] 9.9 fL Normal 9.5-13.5 [facility] Comment on above: Performed By: #### C BC #### [facility] [address] [place] [address] Dr. Leeanna Carlson PLT 191 103/ul Normal 150-450 [facility] Comment on above: Performed By: #### C BC #### [facility] [address] [place], [place] [address] Dr. Leeanna Carlson RBC 5.43 106/ul Normal 4.70-6.10 [facility] Comment on above: Performed By: #### C BC #### [facility] [address] [place] [address] Dr. Leeanna Carlson WBC 5.1 103/ul Normal 4.0-11.0 [facility] Comment on above: Performed By: #### C BC #### [facility] [address] [address] [address] ABD/PELVIS WO CONon 07-28 CT ABD/PELVIS WO CON EXAMINATION: CT ABD/PELVIS WO CON HISTORY: CALCULUS OF KIDNEY ; right flank pain, hematuria for 2 months COMPARISON: No relevant comparison available. TECHNIQUE: Axial, Coronal, and Sagittal images were obtained without and/or with IV contrast as indicated by examination type. Dose reduction techniques were achieved by using automated exposure control and/or adjustment of mA and/or kV according to patient size and/or use of iterative reconstruction technique. FINDINGS: LUNG BASES: No visible pulmonary or pleural disease. LIVER: Small left hepatic lobe hypodensity favoring a cyst or hemangioma. No enlargement, atrophy, suspicious density, or significant focal lesion. BILIARY: No dilatation or calcification. PANCREAS: No lesion, fluid collection, or abnormal duct dilatation. SPLEEN: No enlargement or focal lesion. ADRENALS: No mass or enlargement. KIDNEYS: Nonobstructing kidney stones bilaterally. Benign-appearing right renal cysts. No ureteral stones or abnormal dilation. BOWEL/MESENTERY: No visible mass, obstruction, or bowel wall thickening. AORTA/VASCULAR: No aneurysm or dissection. RETROPERITONEUM: No mass or adenopathy. LYMPH NODES: No adenopathy. URINARY BLADDER: No visible focal wall thickening, lesion, or calculus. PELVIC ORGANS: Prominent prostate. ABDOMINAL WALL: No mass or significant hernia. BONES: No bony lesion or fracture. L5-S1 marked degenerative disc disease. OTHER: Negative. IMPRESSION: 1.Bilateral nonobstructing nephrolithiasis, likely accounting for patient's symptoms. 2. Benign-appearing right renal cysts. 3.Prominent prostate. 4.Marked degenerative disc disease at L5-S1. Electronically authenticated by: JOHANNA MARIE Date: 2022-07-28 10:52 Normal [facility] ER URINE PROFILEon 3 Bilirubin Ql (U) Negative Normal NEGATIVE [facility] Comment on above: Performed By: #### U MICRO, ERUR #### [facility] [address] [place], [place] [address] Dr. Leeanna Carlson Clarity (U) CLOUDY Abnormal CLEAR [facility] Comment on above: Performed By: #### U MICRO, ERUR #### [facility] [address] [address] [address] Leeanna Carlson Color (U) BROWN Abnormal YELLOW [facility] Comment on above: Performed By: #### U MICRO, ERUR #### [facility] [address] [address] [address] Leeanna ALEJANDRAD A micrscopic examination will be performed if indicated. Normal [facility] Comment on above: Performed By: #### U MICRO, ERUR #### [facility] [address] [address] [address] Leeanna Carlson Glucose Ql (U) Negative Normal NEGATIVE [facility] Comment on above: Performed By: #### U MICRO, ERUR #### [facility] [address] [address] [address] Leeanna Carlson Hemoglobin Ql (U) LARGE Abnormal NEGATIVE [facility] Comment on above: Performed By: #### U MICRO, ERUR #### [facility] [address] [address] [address] Leeanna Carlson Ketones Ql (U) Negative Normal NEGATIVE [facility] Comment on above: Performed By: #### U MICRO, ERUR #### [facility] [address] [address] [address] Leeanna Carlson LEUKOCYTES TRACE Abnormal NEGATIVE [facility] Comment on above: Performed By: #### U MICRO, ERUR #### [facility] [address] [address] [address] Leeanna Carlson Nitrite Ql (U) Negative Normal NEGATIVE [facility] Comment on above: Performed By: #### U MICRO, ERUR #### [facility] [address] [address] [address] Leeanna Carlson pH (U) 5.0 [pH] Normal 5-9 [facility] Comment on above: Performed By: #### U MICRO, ERUR #### [facility] [address] [address] [address] Leeanna Carlson Protein (U) [Mass/Vol] 30 mg/dL Abnormal NEGAT KIERSTEN/ TRACE [facility] Comment on above: Performed By: #### U MICRO, ERUR #### [facility] [address] [place] [address] Dr. Leeanna Carlson SPEC GRAVITY 1.020 Normal 1.005-<=1.025 [facility] Comment on above: Performed By: #### U MICRO, ERUR #### [facility] [address] [place] [address] Dr. Leeanna Carlson UR MICRO IND INDICATED Normal [facility] Comment on above: Performed By: #### U MICRO, ERUR #### [facility] [address] [place] [address] Dr. Leeanna Carlson Urobilinogen Qn (U) 1.0 {Marito'U}/dL Normal 0.2 - 1. 0 [facility] Comment on above: Performed By: #### U MICRO, ERUR #### [facility] [address] [place] [address] Dr. Leeanna Carlson URINE MICROSCOPIC ONLYon BACTERIA NONE SEEN Normal NONE SEEN [facility] Comment on above: Performed By: #### U MICRO, ERUR #### [facility] [address] [place] [address] Dr. Leeanna Carlson Bacteria identified Cx Nom (U) NOT INDICATED Normal [facility] Comment on above: Performed By: #### U MICRO, ERUR #### [facility] [address] [place] [address] Dr. Leeanna Carlson CAST NONE SEEN Normal NONE SEEN [facility] Comment on above: Performed By: #### U MICRO, ERUR #### [facility] [address] [place] [address] Dr. Leeanna Carlson Crystals LM Nom (Urine sed) NONE SEEN Normal NONE SEEN [facility] Comment on above: Performed By: #### U MICRO, ERUR #### [facility] [address] [place] [address] Dr. Leeanna Carlson Epithelial cells LM Ql (Urine sed) RARE Normal NONE SEEN /RARE [facility] Comment on above: Performed By: #### U MICRO, ERUR #### [facility] [address] [address] [address] Leeanna Carlson MUCOUS NONE SEEN Normal NONE SEEN [facility] Comment on above: Performed By: #### U MICRO, ERUR #### [facility] [address] [address] [address] Leeanna Carlson RBC (U) [#/Vol] /uL Abnormal 0-2 [facility] Comment on above: Performed By: #### U MICRO, ERUR #### [facility] [address] [address] [address] Leeanna Carlson WBC 0-2 Abnormal NONE SEEN [facility] Comment on above: Performed By: #### U MICRO, ERUR #### [facility] [address] [address] [address] Leeanna Carlson CULTURE URINEon 06-14-2022 CULTURE URINE Culture Observations: NO GROWTH. Normal [facility] Comment on above: Performed By: #### U RCX ####[facility] [address] [address]Dr. Leeanna Carlson UA RANDOMon 06-14-2022 Bilirubin Ql (U) Negative Normal NEGATIVE [facility] Comment on above: Performed By: #### U A #### [facility] [address] [address] [address] Leeanna Carlson Clarity (U) CLEAR Normal CLEAR [facility] Comment on above: Performed By: #### U A #### [facility] [address] [address] [address] Leeanna Carlson Color (U) LT. YELLOW Normal YELLOW [facility] Comment on above: Performed By: #### U A #### [facility] [address] [address] [address] Leeanna Carlson Glucose Ql (U) Negative Normal NEGATIVE [facility] Comment on above: Performed By: #### U A #### [facility] [address] [address] [address] Leeanna Carlson Hemoglobin Ql (U) SMALL Abnormal NEGATIVE [facility] Comment on above: Performed By: #### U A #### [facility] [address] [address] [address] Leeanna Carlson Ketones Ql (U) Negative Normal NEGATIVE [facility] Comment on above: Performed By: #### U A #### [facility] [address] [place] [address] Dr. Leeanna Carlson LEUKOCYTES Negative Normal NEGATIVE [facility] Comment on above: Performed By: #### U A #### [facility] [address] [place] [address] Dr. Leeanna Carlson Nitrite Ql (U) Negative Normal NEGATIVE [facility] Comment on above: Performed By: #### U A #### [facility] [address] [place] [address] Dr. eLeanna Carlson pH (U) 6.0 [pH] Normal 5-9 [facility] Comment on above: Performed By: #### U A #### [facility] [address] [place] [address] Dr. Leeanna Carlson SPEC GRAVITY <=1.005 Abnormal 1.005-<=1.025 [facility] Comment on above: Performed By: #### U A #### [facility] [address] [place] [address] Dr. Leeanna Carlson UA PROTEIN Negative Normal NEGATIVE/ TRACE [facility] Comment on above: Performed By: #### U A #### [facility] [address] [place] [address] Dr. Leeanna Carlson Urobilinogen Qn (U) 0.2 {Marito'U}/dL Normal 0.2 - 1. 0 [facility] Comment on above: Performed By: #### U A #### [facility] [address] [place] [address] Dr. Leeanna Carlson US KIDNEYSon 06-14-2022 US KIDNEYS EXAM: US KIDNEYS HISTORY: Kidney stone month history of right flank pain. COMPARISON: None. TECHNIQUE: Real-time renal ultrasound. Findings: The right left kidneys measure 11.0 and 10.8 cm. There is good corticomedullary differentiation bilaterally. Off the right kidney is a partially exophytic 4.6 x 5.8 x 5.3 cm anechoic lesion with posterior acoustic enhancement likely relating to a cyst. There are bilateral echogenic foci. The largest of the right kidney measures 1.3 x 1.1 x 0.8 cm within the lower pole. The largest in the left kidney measures 0.9 x 0.3 x 0.7 cm within the lower pole. No renal collecting system dilatation bilaterally. No perinephric fluid collection. The bladder is fluid-filled and unremarkable with a prevoid volume of 206 mL. The prostate is enlarged measuring 4.4 x 5.2 x 5.7 cm and exerts mild mass effect upon the posterior bladder wall. IMPRESSION: 1. Nonobstructing bilateral renal stones. 2. Probable right renal cyst. If indicated, this could be further evaluated with CT. 3. Enlarged prostate. Electronically authenticated by: ARTHUR ONTIVEROS Date: 2022-06-14 14:27 Normal [facility] XR KUB 1 VIEWon 06-14-2022 XR KUB 1 VIEW EXAMINATION: XR KUB 1 VIEW HISTORY: Kidney stone COMPARISON: No relevant comparison available. FINDINGS: KIDNEY/URETER - RIGHT: Multiple right nephroliths partially obscured by stool KIDNEY/URETER - LEFT: No visible renal or ureteral calcifications. PELVIS: No visible ureteral calcifications. Any visible calcifications favor phleboliths. BOWEL: No abnormal dilation or deviation. BONES: No acute abnormality. Moderate degenerative spondylosis OTHER: Negative. No abnormal gaseous collections. IMPRESSION: Right nephrolithiasis Electronically authenticated by: GIOVANNY ZAYAS Date: 2022-06-14 13:33 Normal [facility] Creatinine (Bld) [Mass/Vol]O rdered By: Dave Solorio on 04-27-2022 Creatinine [Mass/Vol] 1.2 mg/dL 0.6-1.3 [facility] Comment on above: ER/ESD physician is notified/shown all ISTAT results.Critical values may be confirmed by laboratory testing ifdeemed necessary by ER attending doctor. ISTAT XRay CREon 04-27-2022 Creatinine [Mass/Vol] 1.2 mg/dL Normal 0.6-1.3 [facility] Comment on above: Result Comment: ER/E SD physician is notified/shown all ISTAT results. Critical values may be confirmed by laboratory testing if deemed necessary by ER attending doctor. Performed By: #### I SCRE #### [facility] [address] [place] [address] Point of Care testing , ISTAT GFR ( > 60 Normal [facility] Comment on above: Result Comment: GFR estimated reference range: According to KDOQI guidelines, <60 ml/min/1.73m2 is sufficient to diagnose a patient with chronic kidney disease. PERFORMED BY: [place] [address] PATHOLOGIST [employer]ORTS AGENT TRENT STEWART M.D. Performed By: #### I SCRE #### [address] Point of Care testing , ISTAT GFR (Non- Am > 60 Normal [facility] Comment on above: Performed By: #### I SCRE #### [address] Point of Care testing , MR head/brain wo/w conon MR head/brain wo/w con [facility] Main [place] [address] [place] [address] MRI Report Signed Patient: Emilie Ponce MR#: [id number] : 1955 Acct:[id number] Age/Sex: 66 / M ADM Date: 04/27/22 Loc: Room: Type: [facility] Attending Dr: Krishna Solorio DO Copies to: Dave Solorio DO Ordering Provider: Dave Solorio DO Date of Service: 04/27/22 MR/MR head/brain wo/w con: R29.810 MR head/brain wo/w con 04/27/2022 7:30 AM SIGN AND SYMPTOMS: Left-sided facial numbness PROTOCOL: Multiplanar multisequence MR images of brain were obtained with and without IV contrast CONTRAST: 18 mL of intravenous ProHance COMPARISON: None. FINDINGS: Extra axial spaces: There is mild diffuse age-related cortical atrophy. Hemorrhage: None. Ventricular system: Within normal limits. Basal cisterns: Within normal limits and not effaced. Cerebral parenchyma: Normal in signal. There is no abnormal postcontrast enhancement. Midline shift: None.. Cerebellum: Within normal limits. Brainstem: Within normal limits. OTHER: Calvarium: Normal marrow signal. Vascular system: Satisfactory flow voids within the anterior and posterior circulation. Visualized Paranasal sinuses: There is mucosal thickening at the floor the maxillary sinuses. Visualized Orbits: Within normal limits. Visualized upper cervical spine: Within normal limits. Sella and skull base: Within normal limits. MR/MR head/brain wo/w con IMPRESSION: No acute intracranial pathology or abnormal postcontrast enhancement. There is mild age-related cortical atrophy. Mild mucosal thickening is noted in the floors the maxillary sinuses. Impression dictated by: Sebas Kuo M.D.04/27/2022 10:33 AM Dictation Location: [place] [address] Transcribed By: [facility] 04/27/22 1033 Dictated By: Sebas Kuo II, MD 04/27/22 1026 Signed By: 04/27/22 1033 [facility] No Panel InformationOrdered By: Dave Solorio on 04-27-2022 POC Estimated GFR > 60 [facility] Comment on above: GFR estimated refere nce range: According to KDOQI guidelines, <60 ml/min/1.73m2 is sufficient to diagnose a patient with chronic kidney disease. POC Estimated GFR Non- Amer > 60 [facility] XR KUB 1 VIEWon 04-19-2022 XR KUB 1 VIEW EXAMINATION: XR KUB 1 VIEW HISTORY: Kidney stone COMPARISON: 10/06/2021 FINDINGS: KIDNEY/URETER - RIGHT: Right nephrolithiasis KIDNEY/URETER - LEFT: No visible renal or ureteral calcifications. PELVIS: No visible ureteral calcifications. Any visible calcifications favor phleboliths. BOWEL: No abnormal dilation or deviation. BONES: No acute abnormality. Moderate spondylosis OTHER: Negative. No abnormal gaseous collections. IMPRESSION: Right nephrolithiasis Electronically authenticated by: GIOVANNY ZAYAS Date: 2022-04-19 16:59 Normal [facility] XR KUB 1 VIEWon 10-06-2021 XR KUB 1 VIEW EXAMINATION: XR KUB 1 VIEW HISTORY: Kidney stone COMPARISON: No relevant comparison available. FINDINGS: KIDNEY/URETER - RIGHT: 6 mm stone within inferior pole and adjacent smaller stone. KIDNEY/URETER - LEFT: Tiny stone suspected within mid body. PELVIS: No visible ureteral calcifications. Pelvic calcifications favor phleboliths.. BOWEL: No abnormal dilation or deviation. BONES: No acute abnormality. OTHER: Negative. No abnormal gaseous collections. IMPRESSION: 1. Bilateral nephrolithiasis, right greater than left. Electronically authenticated by: JOHANNA MARIE Date: 2021-10-06 16:08 Normal [facility] CBC AUTO DIFFon 09-28-2021 BASO # 0.0 103/ul Normal 0.0-0.1 [facility] Comment on above: Performed By: #### C BC ####[facility] [address] [place] [address]Dr. Leeanna Carlson Basophils/100 WBC (Bld) 0.8 % Normal 0.2-2.0 [facility] Comment on above: Performed By: #### C BC ####[facility] [address] [place], [place] [address]Dr. Leeanna Carlson EO # 0.1 103/ul Normal 0.0-0.7 [facility] Comment on above: Performed By: #### C BC ####[facility] [address] [place] [address]Dr. Leeanna Carlson Eosinophils/100 WBC (Bld) 2.0 % Normal 0.9-7.0 [facility] Comment on above: Performed By: #### C BC ####[facility] [address] [place], [place] [address]Dr. eLeanna Carlson Erythrocyte distribution width (RBC) [Ratio] 13.2 % Normal 11.0-15.0 [facility] Comment on above: Performed By: #### C BC ####[facility] [address] [place], [place] [address]Dr. Leeanna Carlson Hematocrit (Bld) [Volume fraction] 47.8 % Normal 42.0-54.0 [facility] Comment on above: Performed By: #### C BC ####[facility] [address] [place], [place] [address]Dr. Leeanna Carlsno Hemoglobin (Bld) [Mass/Vol] 15.8 g/dL Normal 14.0-18.0 [facility] Comment on above: Performed By: #### C BC ####[facility] [address] [place] [address]Dr. Leeanna Carlson IG # 0.01 10e3/ul Normal 0.00-0.03 [facility] Comment on above: Performed By: #### C BC ####[facility] [address] [place] [address]Dr. Leeanna Carlson IG % 0.2 % Normal 0.0-0.5 [facility] Comment on above: Performed By: #### C BC ####[facility] [address] [place] [address]Dr. Leeanna Carlson LYMPH # 1.4 103/ul Normal 1.2-3.8 [facility] Comment on above: Performed By: #### C BC ####[facility] [address] [place] [address]Dr. Tammieami Carlson Lymphocytes/100 WBC (Bld) 29.1 % Normal 20.5-60.0 [facility] Comment on above: Performed By: #### C BC ####[facility] [address] [place] [address]Dr. Leeanna Carlson MANUAL DIFF REQ NO Normal [facility] Comment on above: Performed By: #### C BC ####[facility] [address] [place] [address]Dr. Leeanna Carlson MCH (RBC) [Entitic mass] 28.4 pg Normal 25.9-34.0 [facility] Comment on above: Performed By: #### C BC ####[facility] [address] [place], [place] [address]Dr. Leeanna Carlson MCHC (RBC) [Mass/Vol] 33.1 g/dL Normal 29.9-35.2 [facility] Comment on above: Performed By: #### C BC ####[facility] [address] [place] [address]Dr. Leeanna Carlson MCV (RBC) [Entitic vol] 86.0 fL Normal 80.0-94.0 [facility] Comment on above: Performed By: #### C BC ####[facility] [address] [place] [address]Dr. Leeanna Carlson MONO # 0.5 103/ul Normal 0.3-0.8 [facility] Comment on above: Performed By: #### C BC ####[facility] [address]ovclibf04[address] [place] [address]Dr. Leeanna Carlson Monocytes/100 WBC (Bld) 9.9 % Normal 1.7-12.0 [facility] Comment on above: Performed By: #### C BC ####[facility] [address]ab[address] [place] [address]Dr. Leeanna Carlson NEUT # 2.9 103/ul Normal 1.4-6.5 [facility] Comment on above: Performed By: #### C BC ####[facility] [address] [place], [place] [address]Dr. Leeanna Carlson Neutrophils/100 WBC (Bld) 58.0 % Normal 43.0-75.0 [facility] Comment on above: Performed By: #### C BC ####[facility] [address] [place], [place] [address]Dr. Leeanna Carlson Platelet mean volume (Bld) [Entitic vol] 10.3 fL Normal 9.5-13.5 [facility] Comment on above: Performed By: #### C BC ####[facility] [address] [place] [address]Dr. Leeanna Carlson PLT 187 103/ul Normal 150-450 [facility] Comment on above: Performed By: #### C BC ####[facility] [address] [place], [place] [address]Dr. Leeanna Carlson RBC 5.56 106/ul Normal 4.70-6.10 [facility] Comment on above: Performed By: #### C BC ####[facility] [address]ewz[address] [place] [address]Dr. Leeanna Carlson WBC 4.9 103/ul Normal 4.0-11.0 [facility] Comment on above: Performed By: #### C BC ####[facility] [address]eb[address] [place] [address]Dr. Leeanna Carlson PROF CHEM 8 (BAS METB)on Anion gap [Moles/Vol] 8.9 mmol/L Normal [facility] Comment on above: Performed By: #### B MP ####[facility] [address] [place] [address]Dr. Leeanna Carlson Calcium [Mass/Vol] 9.1 mg/dL Normal 8.5-10.1 [facility] Comment on above: Performed By: #### B MP ####[facility] Gh[address] [place], [place] [address]Dr. Leeanna Carlson Chloride [Moles/Vol] 105 mmol/L Normal 98-107 [facility] Comment on above: Performed By: #### B MP ####[facility] [address] [place], [place] [address]Dr. Leeanna Carlson CO2 [Moles/Vol] 27.8 mmol/L Normal 21.0-32.0 [facility] Comment on above: Performed By: #### B MP ####[facility] [address] [place], [place] [address]Dr. Leeanna Carlson Creatinine [Mass/Vol] 1.18 mg/dL Normal 0.70-1.30 [facility] Comment on above: Performed By: #### B MP ####[facility] [address] [place], [place] [address]Dr. Leeanna Carlson EGFR-AF ISRAELI >60 Normal >=60 [facility] Comment on above: Performed By: #### B MP ####[facility] [address] [place], [place] [address]Dr. Leeanna Carlson EGFR-NON AF ISRAELI >60 Normal >=60 [facility] Comment on above: Performed By: #### B MP ####[facility] [address] [place], [place] [address]Dr. Leeanna Carlson Glucose [Mass/Vol] 110 mg/dL Critically high 74-106 [facility] Comment on above: Performed By: #### B MP ####[facility] [address]ufq[address]acid[address] [place] [address]DrCassidy Carlson Potassium [Moles/Vol] 4.7 mmol/L Normal 3.5-5.1 [facility] Comment on above: Performed By: #### B MP ####[facility] X[address]hs[address]x04[address] [place] [address]DrCassidy Carlson Sodium [Moles/Vol] 137 mmol/L Normal 136-145 [facility] Comment on above: Performed By: #### B MP ####[facility] [address] [place] [address]DrCassidy Carlson Urea nitrogen [Mass/Vol] 22.0 mg/dL Critically high 7.0-18.0 [facility] Comment on above: Performed By: #### B MP ####[facility] [address]ux[address] [place] [address]DrCassidy Carlson Urea nitrogen/Creatinine [Mass ratio] 18.6 mg/mg Normal [facility] Comment on above: Performed By: #### B MP ####[facility] [address] [place] [address]Dr. Leeanna Carlson PROTIMEon 09-28-2021 INR Coag (PPP) [Relative time] 0.98 {INR} Normal [facility] Comment on above: Performed By: #### P TT, PT #### [facility] [address] [place] [address] Dr. Leenana Carlson INR GUIDELINES SEE BELOW Normal [facility] Comment on above: Result Comment: AIRAM RED INR: 2.0 - 3.0 CONDITIONS NOT LISTED BELOW 2.5 - 3.5 FOR PROSTHETIC HEART VALVE REPLACEMENT 2.5 - 3.5 RECURRENT THROMBOSIS Performed By: #### P TT, PT #### [facility] [address] [place] [address] [address] Leeanna Carlson PT Coag (PPP) [Time] 10.6 s Normal 9.0-11.6 [facility] Comment on above: Performed By: #### P TT, PT #### [facility] [address] [place] [address] [address] Leeanna Carlson PTTon 09-28-2021 aPTT Coag (Bld) [Time] 29.3 s Normal 22.3-36.2 [facility] Comment on above: Performed By: #### P TT, PT #### [facility] [address] [place] [address] [address] Leeanna Carlson [facility] Metabolic Pane puneet 06-03-2021 Albumin [Mass/Vol] 4.6 g/dL Normal 3.6-5.1 [facility] Specialist Comment on above: Performed By: #### V ITD, LIPD, CMP #### [facility] [address] [place], [place] [id number] Albumin/Globulin [Mass ratio] 1.9 {ratio} Normal 1.0-2.5 [facility] Comment on above: Performed By: #### V ITD, LIPD, CMP #### [facility] [address] [place], [place] [id number] ALP [Catalytic activity/Vol] 85 U/L Normal 40-129 [facility] Comment on above: Performed By: #### V ITD, LIPD, CMP #### [facility] [address] [place], [place] [id number] ALT [Catalytic activity/Vol] 28 U/L Normal 9-46 [facility] Comment on above: Result Comment: 03/02 Female reference range changed. Performed By: #### V ITD, LIPD, CMP #### [facility] [address] [place], [place] [id number] Anion gap [Moles/Vol] 18 mmol/L Normal 12-20 [facility] Comment on above: Result Comment: Effe ctive 04/07/2019 reference range changed. Performed By: #### V ITD, LIPD, CMP #### [facility] [address] [place] [id number] AST [Catalytic activity/Vol] 25 U/L Normal 10-40 [facility] Comment on above: Performed By: #### V ITD, LIPD, CMP #### [facility] [address] [place], [place] [id number] Bilirubin [Mass/Vol] 0.65 mg/dL Normal 0.30-1.20 [facility] Comment on above: Performed By: #### V ITD, LIPD, CMP #### [facility] [address] [place], [place] [id number] BUN/CREA 24 Ratio High 6-22 [facility] Comment on above: Performed By: #### V ITD, LIPD, CMP #### [facility] [address] [place], [place] [id number] Calcium [Mass/Vol] 9.4 mg/dL Normal 8.6-10.2 [facility] Comment on above: Performed By: #### V ITD, LIPD, CMP #### [facility] [address] [place], [place] [id number] Chloride [Moles/Vol] 105 mmol/L Normal 98-107 [facility] Comment on above: Performed By: #### V ITD, LIPD, CMP #### [facility] [address] [place], [place] [id number] CO2 [Moles/Vol] 23 mmol/L Normal 20-31 [facility] Comment on above: Performed By: #### V ITD, LIPD, CMP #### [facility] [address] [place], [place] [id number] Creatinine [Mass/Vol] 1.1 mg/dL Normal 0.7-1.4 [facility] Comment on above: Performed By: #### V ITD, LIPD, CMP #### [facility] [address] [place], [place] [id number] eGFRAA 86 mL/min/1.73m2 Normal >60 [facility] Comment on above: Performed By: #### V ITD, LIPD, CMP #### [facility] [address] [place], [place] [id number] eGFRNAA 71 mL/min/1.73m2 Normal >60 [facility] Comment on above: Performed By: #### V ITD, LIPD, CMP #### [facility] [address] [place], [place] [id number] Globulin (S) [Mass/Vol] 2.4 g/dL Normal 1.9-3.7 [facility] Comment on above: Performed By: #### V ITD, LIPD, CMP #### [facility] [address] [place], [place] [id number] Glucose [Mass/Vol] 97 mg/dL Normal 65-99 [facility] [place] [place] [employer] Comment on above: Result Comment: For FASTING Glucose --- ADA reference ranges: Normal 65-99 mg/dl Prediabetes 100-125 Diabetes >/= 126 Performed By: #### V ITD, LIPD, CMP #### [facility] [address] [place], [place] [id number] Potassium [Moles/Vol] 4.5 mmol/L Normal 3.5-5.5 [facility] Comment on above: Performed By: #### V ITD, LIPD, CMP #### [facility] [address] [place], [place] [id number] Protein [Mass/Vol] 7.0 g/dL Normal 6.1-8.1 [facility] [employer] Comment on above: Performed By: #### V ITD, LIPD, CMP #### [facility] [address] [place], [place] [id number] Sodium [Moles/Vol] 141 mmol/L Normal 135-146 [facility] [employer] Comment on above: Performed By: #### V ITD, LIPD, CMP #### [facility] [address] [place], [place] [id number] Urea nitrogen [Mass/Vol] 26 mg/dL High 7-25 [facility] [employer] Comment on above: Performed By: #### V ITD, LIPD, CMP #### [facility] [address] [place], [place] [id number] Hemoglobin A1Con 06-03-2021 EAG 125.50 Normal [facility] Specialist Comment on above: Performed By: #### A 1C #### [facility] [address] [place], [place] [id number] HbA1c (Bld) [Mass fraction] 6.0 % Normal 4.0-6.0 [facility] [employer] Comment on above: Performed By: #### A 1C #### [facility] [address] [place], [place] [id number] Lipid Panelon 06-03-2021 Cholesterol [Mass/Vol] 232 mg/dL High 125-200 No rthern [place] [employer] Comment on above: Result Comment: Low risk < 200mg/dL Borderline risk 201-239 mg/dl High risk > or equal to 240 Performed By: #### V ITD, LIPD, CMP #### [facility] [address] [place], [place] [id number] Cholesterol in HDL [Mass/Vol] 68 mg/dL Normal >40 [facility] Comment on above: Result Comment: High Cardiovascular Risk HDL <40 mg/dL Low Cardiovascular Risk HDL > or equal to 60 mg/dl Performed By: #### V ITD, LIPD, CMP #### [facility] [address] [place], [place] [id number] Cholesterol in LDL [Mass/Vol] 153 mg/dL Normal [facility] Comment on above: Result Comment: LDL ATP III CLASSIFICATION LDL less than 100 mg/dl Optimal LDL 100-129 mg/dl Near or above optimal LDL 130-159 Borderline high LDL 160-189 High LDL greater than 189 mg/dl Very High Performed By: #### V ITD, LIPD, CMP #### [facility] [address] [place], [place] [id number] Cholesterol in VLDL [Mass/Vol] 11 mg/dL Normal [facility] Comment on above: Performed By: #### V ITD, LIPD, CMP #### [facility] [address] [place], [place] [id number] Cholesterol.total/Chol esterol in HDL [Mass ratio] 3 {ratio} Normal [facility] Comment on above: Performed By: #### V ITD, LIPD, CMP #### [facility] [address] [place], [place] [id number] Triglyceride [Mass/Vol] 55 mg/dL Normal 30-150 [facility] Comment on above: Result Comment: TRIG ATPIII CLASSIFICATIONS TRIG less than 150 mg/dl Normal TRIG 150-199 mg/dl Borderline High TRIG 200-500 mg/dl High TRIG greather than 500 mg/dl Very High Performed By: #### V ITD, LIPD, CMP #### [facility] [address] [place], [place] [id number] Prostatic Specific Antigen, Totalon 06-03-2021 TPSA 5.030 ng/mL High <4.000 [facility] Comment on above: Result Comment: PSA Test Method: ECLIA/Maira e 601 Performed By: #### P SA #### [facility] [address] [place], [place] [id number] Vitamin D 25-OHon 06-03-2021 VIT D 25 OH 57 ng/ml Normal >29 [facility] [employer] Comment on above: Result Comment: Amanda min D Status Deficiency <20 ng/mL Insufficiency 20-29 ng/mL Optimal 30-100 ng/mL Possible Toxicity >=150 ng/mL Performed By: #### V ITD, LIPD, CMP #### [facility] [address] [place], [place] [id number] MRI PROSTATE WO/W IVCONon MRI PROSTATE WO/W IVCON * * *Final Report* * * DATE OF EXAM: Mar 10 2019 1:21PM QBM [id number] - MRI PROSTATE WO/W IVCON / PROCEDURE REASON: ELEVATEDPSA, BPH WITH URINARY OBSTRUCTION * * * * Physician Interpretation * * * * MRI PELVIS WITHOUT AND WITH IV CONTRAST (MULTIPARAMETRIC PROSTATE MRI): 03/10/19 CLINICAL HISTORY: 62-year-old male with elevated PSA Previous biopsy: Not on file. PSA: Not on file. Prior therapy: Not on file. COMPARISON: None TECHNIQUE: Multiparametric MRI of the prostate and pelvis performed on a 3T (Inxero) scanner utilizing phase pelvic coil. Sequences obtained: Multiplanar T2-WI with small [id number]-[id number]; Axial diffusion weighted images with multiple B-values and creation of ADC-maps; Dynamic contrast enhanced T1-weighted images through the prostate were also obtained before, during and after the administration of intravenous gadolinium. Prostate dimensions and volume were obtained using a semi-automated software (DotSpots). CONTRAST: IV: 17 cc of (Dotarem). RESULT: Prostate: Dimensions: 6.0 x 4.7 x 5.8 cm corresponding to a volume of approximately 82 cc. Peripheral zone: 8 mm circumscribed extruded BPH nodule in the right apical anterior transition zone (series 9 image 70). No evidence of clinically significant disease. PI-RADS score 2 Transition zone: There is transition zone hypertrophy, without focal abnormalities suspicious for clinically significant disease. Central zone: No focal lesions with imaging features suspicious for clinically significant disease. Neurovascular bundle: Unremarkable. Seminal vesicles: Unremarkable. Adjacent Organ Involvement: None. Lymphadenopathy: No pelvic lymphadenopathy. Bladder: Unremarkable Pelvic bones: No suspicious pelvic osseous lesions. Other Findings: Right renal cyst. IMPRESSION: No evidence of clinically significant disease. BPH. No adenopathy. Number of targets created for MR/US fusion biopsy: Peripheral zone: 0 Transition zone: 0 Central zone: 0 If present, targets were numbered in order of level of suspicion for clinically significant prostate cancer (Washington score 3 + 4 or higher). PI-RADS v2.1 assessment categories: PI-RADS 1: Clinically significant cancer is highly unlikely PI-RADS 2: Clinically significant cancer is unlikely PI-RADS 3: Clinically significant cancer is equivocal PI-RADS 4: Clinically significant cancer is likely PI-RADS 5: Clinically significant cancer is highly likely (V.05) Lens Molder: GEOFF Transcribe Date/Time: Mar 10 2019 1:33P Dictated by : DAVE JONES MD This examination was interpreted and the report reviewed and electronically signed by: DAVE JONES MD on Mar 10 2019 2:15PM EST [id number] Normal [facility] PROGRESSon 03-10-2019 PROGRESS HNO ID: [id number] Author: Hallie (Ying) YING aSavedra Service: Radiology Author Type: Registered Nurse Type: Progress Notes Filed: 03/10/2019 12:21 PM Note Text: Radiology Service Progress Note DATE OF SERVICE: March 10, 2019 TIME: 12:15 PM PATIENT WEIGHT: 185 LBS PATIENT IDENTITY VERIFICATION COMPLETED USING TWO (2) STANDARD IDENTIFIERS: Name and Date of confirmed by patient verbally and Name and Date of confirmed by identification band. PATIENT GENDER DATA: Male ALLERGIES: Reviewed and unchanged CONTRAST ALLERGY: NO. EXAM: MRI - CONTRAST TYPE: GROUP II IV SITE: Ambulatory: A peripheral IV was started in the Right antecubital site with a Angio cath: 22 gauge. and A Saline lock was inserted per protocol IV SITE APPEARANCE: Clean,Dry and Intact SIGNATURE: Hallie Saavedra RN PATIENT NAME: Lokesh Ponce DATE: March 10, 2019 TIME: 12:15 PM Normal [facility] PROGRESS HNO ID: [id number] Author: Shania Serra) Rosina Tavera Service: Radiology Author Type: Education Rn Type: Progress Notes Filed: 03/10/2019 12:54 PM Note Text: Radiology Service Progress Note PATIENT NAME: Lokesh Ponce DATE OF SERVICE: March 10, 2019 TIME: 12:54 PM PATIENT IDENTITY VERIFICATION COMPLETED USING TWO (2) IDENTIFIERS: Name and Date of confirmed by patient verbally and Name and Date of confirmed by identification band. PATIENT GENDER DATA: Male PATIENT RELEVANT IMPLANT DATA REVIEWED: Yes RADIOLOGY DEPARTMENT: MR; Exam(s) Completed: Body: Prostate PERIPHERAL IV DATA: Site assessment: Clean,Dry and Intact, Site disposition Discontinued SIGNED BY: Rosina Ferrari March 10, 2019 12:54 PM Normal [facility] Vital Signs Date Time Vital Sign Value Performing Clinician Jesse cooper 05-23-2023 13:45-0500 Body height 177.8 cm Jeana Parra DO [facility] 05-23-2023 13:45-0500 Body mass index (BMI) [Ratio] 28.5 kg/m2 Jeana Parra DO [facility] 05-23-2023 13:45-0500 Body weight 90.08 kg Jeana Parra DO [facility] 05-23-2023 13:45-0500 Diastolic blood pressure 85 mm[Hg] Jeana Parra DO [facility] 05-23-2023 13:45-0500 Heart rate 63 /min Jeana Parra DO Work [facility]: [facility] 05-23-2023 13:45-0500 Systolic blood pressure 134 mm[Hg] Jeana Parra DO [facility]: [facility] 04-24-2023 13:03-0500 Body mass index (BMI) [Ratio] 29.1 kg/m2 Keerthi Gill MD Work Phone: [facility] 04-24-2023 13:03-0500 Body temperature 97.7 [degF] Keerthi Gill MD Work Phone: [facility] 04-24-2023 13:03-0500 Body weight 91.99 kg Keerthi Gill MD Work Phone: [facility] 04-24-2023 13:03-0500 Diastolic blood pressure 78 mm[Hg] Keerthi Gill MD Work Phone: [facility] 04-24-2023 13:03-0500 Heart rate 71 /min Keerthi Gill MD Work Phone: [facility] 04-24-2023 13:03-0500 SaO2% (BldA) [Mass fraction] 97 % Keerthi Gill MD Work Phone: [facility] 04-24-2023 13:03-0500 Systolic blood pressure 134 mm[Hg] Keerthi Gill MD Work Phone: [facility] 10-09-2022 08:31-0400 Blood Pressure Location Sharla MONTIEL [facility] 10-09-2022 08:31-0400 Diastolic blood pressure 74 mm[Hg] Sharla MONTIEL [facility] 10-09-2022 08:31-0400 Heart rate 80 /min Sharla MONTIEL [facility] 10-09-2022 08:31-0400 Respiratory rate 16 /min Sharla MONTIEL [facility] 10-09-2022 08:31-0400 Systolic blood pressure 130 mm[Hg] Sharla MONTIEL [facility] 05-01-2022 09:15-0500 Blood Pressure Location Sharla MONTIEL [facility] 05-01-2022 09:15-0500 Diastolic blood pressure 84 mm[Hg] Sharla MONTIEL [facility] 05-01-2022 09:15-0500 Heart rate 75 /min Sharla MONTIEL [facility] 05-01-2022 09:15-0500 Respiratory rate 16 /min Sharla MONTIEL [facility] 05-01-2022 09:15-0500 Systolic blood pressure 129 mm[Hg] Sharla MONTIEL [facility] 04-27-2022 07:35-0500 Body height 177.8 cm DO Monica Cori Work Phone: [facility] 04-27-2022 07:35-0500 Body weight 88.45 kg DO Monica Cori Work Phone: [facility] 04-19-2022 13:20-0500 Blood Pressure Location DONALD LEOLA [facility] 04-19-2022 13:20-0500 Diastolic blood pressure 74 mm[Hg] DONALD LEOLA [facility] 04-19-2022 13:20-0500 Heart rate 72 /min DONALD LEOLA [facility] 04-19-2022 13:20-0500 Respiratory rate 16 /min DONALD LEOLA [facility] 04-19-2022 13:20-0500 Systolic blood pressure 126 mm[Hg] DONALD LEOLA [facility] 10-28-2021 10:27-0400 Blood Pressure Location Sharlaastrid MONTIEL [facility] [place] 10-28-2021 10:27-0400 Diastolic blood pressure 81 mm[Hg] Sharla MONTIEL [facility] [place] 10-28-2021 10:27-0400 Heart rate 54 /min Sharla MONTIEL [facility] [place] 10-28-2021 10:27-0400 Respiratory rate 16 /min Sharlaastrid MONTIEL [facility] [place] 10-28-2021 10:27-0400 Systolic blood pressure 134 mm[Hg] Sharla MONTIEL [facility] [place] 08-17-2021 10:03-0400 Blood Pressure Location Sharlaastrid MONTIEL [facility] [place] 08-17-2021 10:03-0400 Diastolic blood pressure 87 mm[Hg] Sharla MONTIEL [facility] [place] 08-17-2021 10:03-0400 Heart rate 58 /min Sharla MONTIEL [facility] [place] 08-17-2021 10:03-0400 Systolic blood pressure 134 mm[Hg] Sharla MONTIEL [facility] [place] Encounters Encounter Date Encounter Type Care Provider Facility Start: 07-02-2023 ambulatory [facility] Facility:Mario Moralesevue Start: 05-23-2023 End: 05-23-2023 ambulatory JEANA PARRA [facility] Start: 05-23-2023 End: 05-23-2023 Office outpatient visit 15 minutes Jeana Parra DO Work Phone: [facility] Comment on above: Acute epididymitis ( Primary Dx); Non-recurrent unilateral inguinal hernia without obstruction or gangrene; Epididymitis Start: 04-26-2023 End: 04-27-2023 ambulatory [facility] Start: 04-24-2023 End: 04-24-[address] [facility] Start: 04-24-2023 End: 04-24-2023 Office outpatient visit 25 minutes Keerthi Gill MD Work Phone: [facility] Comment on above: Non-recurrent unilat eral inguinal hernia without obstruction or gangrene (Primary Dx); Flank pain Start: 04-06-2023 End: 04-06-2023 ambulatory BRITT REYES Not Available Start: 04-04-2023 ambulatory Sarah Stone [facility] - Care Coordination Team Start: 04-04-2023 Coordination of care plan Sarah ventura ORDER [facility] Quality - Care Coordination Team Start: 03-22-2023 End: 03-22-[address] [facility] Start: 01-08-2023 End: 01-09-2023 ambulatory MONICA HINTONEFE Facility:[facility] [place] Start: 10-09-2022 End: 10-10-2022 ambulatory [facility] Facility:[facility] [place] Start: 10-09-2022 End: 10-09-2022 Patient encounter procedure Sharla MONTIEL [facility] [place] Start: 09-18-2022 End: 09-19-2022 [facility] [place] [place] Start: 09-18-2022 End: 09-19-2022 ambulatory MONICA CORI Facility:[facility] Start: 09-18-2022 End: 09-18-2022 Patient encounter procedure Sharla MONTIEL [facility] Start: 08-29-2022 End: 08-30-2022 ambulatory MONICA CORI Facility: [place] Start: 08-29-2022 End: 08-29-2022 Patient encounter procedure Sharla MONTIEL [facility] Start: 08-25-2022 End: 08-25-[address] DOCTOR HLAEY Facility: Start: 08-21-2022 End: 08-22-2022 ambulatory MONICA PARHAM Facility:[facility] Start: 08-17-2022 End: 08-18-[address] DOCTOR HALEY Facility:[facility] Start: 08-12-2022 Encounter for preprocedural cardiovascular examination DR SHARLA MONTIEL . [facility] Start: 08-12-2022 Encounter for preprocedural laboratory examination DR SHARLA MONTIEL . [facility] Start: 08-09-2022 End: 08-10-[address] SHARLA MONTIEL . Facility:[facility] Start: 08-09-2022 End: 08-10-2022 Encounter for preprocedural cardiovascular examination DR SHARLA MONTIEL . Facility:[facility] Start: 07-28-2022 End: 07-28-[address] DOCTOR HALEY Facility:[facility] Start: 06-14-2022 End: 06-15-[address] GIOVANNY ZAYAS Facility:[facility] Start: 06-14-2022 End: 06-14-2022 Patient encounter procedure DONALD BHAGAT [facility] Start: 05-01-2022 End: 05-01-2022 Patient encounter procedure Sharla MONTIEL [facility] Start: 04-27-2022 End: 04-27-2022 ambulatory Monica Parham Facility:[facility] Start: 04-27-2022 End: 04-27-2022 ambulatory DO Monica G Cori Work Phone: [facility] Work Phone: Start: 04-27-2022 End: 04-27-2022 Patient encounter procedure DO Monica Cori Work Phone: [facility] [place] Work Phone: Start: 04-19-2022 End: 04-20-[address] GIOVANNY ZAYAS Facility:[facility] Start: 04-19-2022 End: 04-19-2022 Patient encounter procedure DONALD BHAGAT [facility] Start: 10-28-2021 End: 10-28-2021 Lab Drop off Sharla MONTIEL [facility] Start: 10-28-2021 End: 10-28-2021 Patient encounter procedure Sharla MONTIEL [facility] Start: 10-06-2021 End: 10-06-[address] SHARLA MONTIEL . Facility:[facility] Start: 09-28-2021 End: 09-29-[address] SHARLA MONTIEL . Facility:[facility] Start: 08-17-2021 End: 08-17-2021 Patient encounter procedure Sharla MONTIEL [facility] Procedures Date Procedure Procedure Detail Performing Clinician Start: 03-22-2023 Adult depression scr eening assessment Sarah Stone ORDER PULLER Start: 11-27-2022 Colonoscopy Sarah ventura ORDER PULLER Start: 08-29-2022 Cystoscopic removal of ureteric stent Sharla MONTIEL Start: 04-27-2022 MRI of head DO Monica gonzalez Work Phone: Start: 03-12-2020 Cystoscopy Sharla FERRELL Start: 08-31-2016 Transurethral prostatectomy Sharla MONTIEL Start: 07-04-2016 Cystoscopy Sharla FERRELL Start: 09-30-2014 Cystoscopy Sharla FERRELL Start: 04-21-2010 Transurethral prostatectomy Sharla MONTIEL Start: 02-04-2010 Urodynamic studies Yoni MONTIEL Start: 07-31-2008 Transrectal biopsy o f prostate using ultrasound guidance Sharla MONTIEL Start: 07-31-2005 Cystoscopy Sharla FERRELL Appendectomy Sharla MONTIEL Tonsillectomy Sharla MONTIEL Plan of Treatment Date Care Activity Detail Author Start: 11-27-2032 Screening for malign ant neoplasm of colon Colonoscopy [facility] Start: 06-27-2024 DTaP,Tdap and Td Vac cines (2 - Td or Tdap) DTaP,Tdap and Td Vaccines (2 - Td or Tdap) [facility] Start: 05-23-2024 Adult BMI Screening Adult BMI Screen ing [facility] Start: 05-23-2024 Tobacco Screening Tobacco Screening [facility] Start: 04-24-2024 Adult BMI Screening Adult BMI Screen ing [facility] Start: 04-24-2024 Tobacco Screening Tobacco Screening [facility] Start: 04-04-2024 Fall Risk Screening Fall Risk Screen ing [facility] Start: 03-22-2024 Adult BMI Screening Adult BMI Screen ing [facility] Start: 12-21-2024 Depression Screening Depression Scre ening [facility] Start: 03-22-2024 Fall Risk Screening Fall Risk Screen ing [facility] Start: 03-22-2024 Tobacco Screening Tobacco Screening [facility] Start: 09-25-2023 End: 09-25-2023 Patient encounter procedure 09/25/2023 10:15 AM EDT Office Visit [facility] [address] [place] [phone] Keerthi Gill MD [address] [place], [place] [phone] [facility] Start: 05-02-2023 End: 05-02-2023 Patient encounter procedure 05/02/2023 9:15 AM EST Office Visit [facility] [address] [place] [phone] Jeana Parra DO [address] [place], [place] [phone] [facility] Start: 04-26-2023 End: 04-26-2023 Patient encounter procedure [facility] Start: 04-24-2023 End: 04-24-2024 US Retroperitoneum Ultrasound retroperitoneal complete Imaging Routine Flank pain Expected: 04/24/2023, Expires: 04/24/2024 [facility] Comment on above: Expected: 04/24/2023 , Expires: 04/24/2024 Start: 04-24-2023 End: 04-24-2024 US Scrotum and testicle Ultrasound scrotum Imaging Routine Non-recurrent unilateral inguinal hernia without obstruction or gangrene Expected: 04/24/2023, Expires: 04/24/2024 [facility] Work Phone: Comment on above: Expected: 04/24/2023 , Expires: 04/24/2024 Start: 12-01-2022 COVID-19 Vaccine () COVID-19 Vaccine () [facility] Start: 12-01-2022 Influenza vaccination [facility] Start: 09-23-2007 Administration of varicella zoster vaccine Zoster (Shingles) Vaccine (1 of 2) [facility] Start: 09-23-1975 Adult BMI Follow Up Plan Adult BMI F ollow Up Plan [facility] Start: 1955 Medicare Annual Well ness Visit Medicare Annual Wellness [facility] Immunizations Immunization Date Immunization Notes Care Provider Brittnee agustin 03-03-2022 SARS-CoV-2 (COVID-19 ) [id number] Sharlaastrid MONTIEL [facility] 08-20-2021 SARS-CoV-2 (COVID-19 ) mRNA-1273 vaccine Sharlaastrid MONTIEL [facility] 03-02-2021 SARS-CoV-2 (COVID-19 ) mRNA-1273 vaccine Sharlaastrid MONTIEL [facility] 02-20-2021 SARS-CoV-2 (COVID-19 ) mRNA-1273 vaccine Sharla MONTIEL [facility] 01-23-2021 SARS-CoV-2 (COVID-19 ) mRNA-1273 vaccine Sharlaastrid MONTIEL [facility] 06-27-2014 tetanus toxoid, redu juventino diphtheria toxoid, and acellular pertussis vaccine, adsorbed Sharla MONTIEL [facility] Payers Date Payer Category Payer Medicare [id number] 2022 Self-pay [id number] 2014 Unknown BCBS [place] [facility] HMO/PPO/TRUST [id number] 2014-Present [phone] [place] [address] [id number] 1959 Unknown [id number] 1955 Unknown [id number] 2.16.840.1.277686.3.579.2.593 1957 Unknown [id number] 2.16.840.1.022383.3.579.2.593 1957 Unknown [id number] 2.16.840.1.758622.3.579.2.593 1957 Unknown [id number] 2.16.840.1.657894.3.579.2.593 1957 Unknown [id number] 2.16.840.1.676590.3.579.2.593 1957 Unknown [id number] 2.16.840.1.709885.3.579.2.593 1957 Unknown [id number] 2.16.840.1.609099.3.579.2.593 1957 Unknown [id number] 2.16.840.1.747224.3.579.2.593 1957 Unknown [id number] 2.16.840.1.372186.3.579.2.125 9 1957 Unknown [id number] 2.16.840.1.418954.3.579.2.128 6 1957 Unknown [id number] 2.16.840.1.074997.3.579.2.128 6 1957 Unknown [id number] 2.16.840.1.097880.3.579.2.128 6 1957 Unknown [id number] 2.16.840.1.583925.3.579.2.128 6 1957 Unknown [id number] 2.16.840.1.372879.3.579.2.128 6 1957 Unknown [id number] 2.16.840.1.722274.3.579.2.727 1957 Unknown [id number] 2.16.840.1.855707.3.579.2.727 1957 Unknown [id number] 2.16.840.1.015896.3.579.2.727 1957 Unknown [id number] 2.16.840.1.869942.3.579.2.727 1957 Unknown [id number] 2.16.840.1.183312.3.579.2.727 1957 Unknown [id number] 2.16.840.1.962416.3.579.2.727 1957 Unknown [id number] 2.16.840.1.736501.3.579.2.727 1957 Unknown [id number] 2.16.840.1.752315.3.579.2.727 Unknown [id number] 2.16.840.1.752772.3.579.2.531 Social History Date Type Detail Facility Start: 08-17-2021 End: 07-17-2022 Tobacco smoking status Never smoked tobacco (finding) [facility] Start: 04-19-2022 Tobacco smoking status Never [facility] [place] Start: 04-23-2020 End: 03-22-2023 Sex Assigned At Male [facility] [place] Start: 1955 Sex Assigned At Male [facility] Start: 07-17-2022 Tobacco use and exposure Smokeless tobacco non-user [facility] Start: 03-22-2023 End: 05-23-2023 Alcohol intake Lifetime non-drinker (finding) [facility] Start: 04-23-2020 End: 03-22-2023 History of Social function [facility] Start: 1955 Sex Assigned At Not on file P [facility] Functional Status Date Assessment Result Facility 10-09-2022 Functional Status N/A [facility] 05-01-2022 Functional Status N/A [facility] 04-19-2022 Functional Status N/A [facility] 10-28-2021 Functional Status N/A [facility] Clinical Notes 08-16-2021 to 05-23-2023 Jeana Parra, - 05/23/2023 1:45 PM Epi Gill MD - 04/24/2023 1:00 PM Jurgen Stone CMA - 04/04/2023 12:06 PM EST Note Date & Type Note Facility 05-23-2023 History of Presen t illness Narrative Images from the original note were not included. [facility] [address] [place] [id number] CONSULT NOTE Omer Pena 67 y.o. CHIEF COMPLAINT Chief Complaint Patient presents with Hernia Unilateral inguinal hernia, referred by Dr. Gill Emilie Ponce is a 67-year-old male who presents with complaints of left testicular pain and left groin pain which radiates into the testicle. He had an ultrasound performed by his family physician which was negative for hernia or anything else. He works out every other day by lifting weights and he lifts up to 185 lb on a bench press and does not rest. He also plays racApprion 2 times a week. He is very active. He denies any swelling in the left groin or any bulges. He also complains of constipation issues and had a recent colonoscopy by me in October of 2022 which was completely normal. He states it sometimes only passes small pebble size stools but only eats an apple a day in a few beans here in there. Denies any nausea vomiting melena hematochezia. He also had a retroperitoneal ultrasound which showed enlarged prostate had 95 mL and I told him I did not know how abnormal that is. He does see Dr. Pola schmitz from urology for kidney stones on a regular basis. He denies any fevers or chills or any difficulty urinating or any dysuria hematuria. MEDICATION Current Outpatient Medications: cholecalciferol, vitamin D3, (VITAMIN D3 ORAL), Take 1 tablet by mouth in the morning., Disp: , Rfl: docosahexaenoic acid/epa (FISH OIL ORAL), Take 3 capsules by mouth in the morning., Disp: , Rfl: dutasteride (AVODART) 0.5 mg capsule, Take 1 capsule (0.5 mg total) by mouth in the morning., Disp: , Rfl: POTASSIUM CITRATE ORAL, Take 1 tablet by mouth in the morning and 1 tablet before bedtime., Disp: , Rfl: TALTZ AUTOINJECTOR 80 mg/mL auto-injector, Inject 80 mg under the skin every 28 days., Disp: , Rfl: ALLERGY Allergies Allergen Reactions Sulfa (Sulfonamide Antibiotics) Hives MEDICAL HISTORY Past Medical History: Diagnosis Date Arthritis Back pain BPH (benign prostatic hyperplasia) Degenerative disc disease, lumbar Kidney stone Kidney stones Kidney stones PONV (postoperative nausea and vomiting) Psoriasis Visual impairment SURGICAL HISTORY Past Surgical History: Procedure Laterality Date APPENDECTOMY COLONOSCOPY COLONOSCOPY N/A 11/27/2022 Performed by Jeana Parra DO at [facility] COLONOSCOPY N/A 01/07/2018 Performed by Jeana Parra DO at [facility] FINGER SURGERY Left LEFT THUMB TONSILLECTOMY TRANSURETHRAL RESECTION OF PROSTATE x3 SOCIAL HISTORY Social History Socioeconomic History Marital status: Spouse name: Not on file Number of children: Not on file Years of education: Not on file Highest education level: Not on file Occupational History Not on file Tobacco Use Smoking status: Never Smokeless tobacco: Never Vaping Use Vaping Use: Never used Substance and Sexual Activity Alcohol use: Never Drug use: No Sexual activity: Not Currently Partners: Female Other Topics Concern Not on file Social History Narrative Not on file Social Determinants of Health Financial Resource Strain: Not on file Food Insecurity: No Food Insecurity (05/23/2023) Hunger Screening Food Insecurity - Worry: Never True Food Insecurity - Inability: Never True Transportation Needs: Not on file Physical Activity: Not on file Stress: Not on file Social Connections: Not on file Interpersonal Safety: Not on file Housing Instability: Not on file FAMILY HISTORY Family History Problem Relation Age of Onset Parkinsonism Mother Heart disease Father enlarged heart Cancer Father Congenital heart disease Father Lung cancer Sister Uterine cancer Sister REVIEW OF SYSTEMS: Constitutional: Denies fevers, denies recent illnesses. Rest review of 10 systems negative except as above. PHYSICAL EXAM Constitutional: He is oriented to person, place, and time. Vital signs are normal. He appears well-developed and well-nourished. Abdomen: Soft nontender with no palpable bulges or hernias noted and he was examined in the standing and supine positions. And upon examination of the scrotum and the left testicle is palpably tender over that area did not like me touching that area. Left: No inguinal and no supraclavicular adenopathy present. Neurological: He is alert and oriented to person, place, and time. Skin: Skin is warm, dry and intact. Psychiatric: He has a normal mood and affect. His speech is normal and behavior is normal. Cognition and memory are normal. IMPRESSION 1. Acute epididymitis most likely secondary to lifting every other day of 185 lb with weights and racquetball twice a week 2. Constipation with normal colonoscopy October 2022 3. History of kidney stones and enlarged prostate on retroperitoneal ultrasound ASSESSMENT & PLAN 1. Cipro 500 mg p.o. b.I.d. times 10 days 2. Ibuprofen 800 mg p.o. t.I.d. with food times 10 days 3. Refrain from lifting or strenuous activity such as weightlifting and racquetball or any lifting at all 4. I have least 2 weeks to let this subside and wear scrotal support 24 hours a day or the [place] fitting underwear he has and if not better return to the office or to urology for their opinion 4. I recommended trying to eat 5 or 6 helpings of fruits and vegetables daily drinking more water and also trying MiraLax once or up to 3 times a day or Metamucil or FiberCon tablets with a stool softener. Evaluation included: Preparing to see the patient (e.g., review of tests) Obtaining and/or reviewing separately obtained history Performing a medically appropriate examination and/or evaluation Counseling and educating the patient/family/caregiver Referring and communicating with other health healthcare social worker No primary diagnosis found. Jeana Parra DO This note was created with the assistance of a speech recognition program. While intending to generate a timely document that accurately reflects the content of the visit, no guarantee can be provided that every grammatical or spelling mistake has been or will be identified or corrected. Thank you for your understanding. documented in this encounter [facility] 04-24-2023 History of Presen t illness Narrative Images from the original note were not included. [address] [place] [phone] Patient: Emilie Ponce Date of : 1955 Encounter Date: 04/24/2023 SUBJECTIVE: Chief Complaint: Chief Complaint Patient presents with Hernia Left side groin area, noticed 6 weeks ago Patient ID: Emilie Ponce is a 67 y.o. male. Comes today with concern for testicular /flank pain that has been ongoing intermittently for the past month. Patient does have notable past medical history of recurrent nephrolithiasis for which he is required interventions. Never had any other intra-abdominal surgery. He is an avid weightlifter. Left sided, groin/abdominal pain With BM improves Testicular pain, tender to touch No lumps/bumps or No penile discharge No similar symptoms No trauma The following portions of the patient's history were reviewed and updated as appropriate: allergies, current medications, past family history, past medical history, past social history, past surgical history and problem list. PHYSICAL EXAMINATION: Vitals: 04/24/23 1303 BP: 134/78 BP Site: Left Arm BP Postition: Sitting Pulse: 71 Temp: 36.5 C (97.7 F) TempSrc: Temporal SpO2: 97% Weight: 92 kg (202 lb 12.8 oz) Physical Exam Vitals reviewed. Constitutional: General: He is not in acute distress. Appearance: Normal appearance. Eyes: Extraocular Movements: Extraocular movements intact. Pupils: Pupils are equal, round, and reactive to light. Cardiovascular: Rate and Rhythm: Normal rate and regular rhythm. Pulses: Normal pulses. Heart sounds: Normal heart sounds. Pulmonary: Effort: Pulmonary effort is normal. No respiratory distress. Breath sounds: Normal breath sounds. No wheezing or rhonchi. Abdominal: General: Bowel sounds are normal. There is no distension. Palpations: Abdomen is soft. There is no mass. Tenderness: There is no abdominal tenderness. There is no right CVA tenderness, left CVA tenderness or guarding. Musculoskeletal: Cervical back: Normal range of motion and neck supple. Skin: Comments: Asymmetric scrotum, left side bulging, no overlying skin changes. On palpation testes appear within normal limits with no obvious lesions or irregularities bilaterally. There is an additional soft tissue mass that could be palpated protruding through the inguinal canal. Left-sided inguinal impulse palpable on cough. Neurological: Mental Status: He is alert and oriented to person, place, and time. Mental status is at baseline. ASSESSMENT/PLAN: Lokesh was seen today for hernia. Diagnoses and all orders for this visit: Flank pain - Ultrasound retroperitoneal complete; Future Non-recurrent unilateral inguinal hernia without obstruction or gangrene - Ultrasound scrotum; Future - [facility] General Surgery - [facility] [place] [place]; Future 67-year-old gentleman who has recently had a colonoscopy completed by Dr. Potts. Will refer to Dr. Parra consideration for surgical intervention. KEERTHI GILL MD Family Medicine Physician [facility] Family Medicine / [facility] 04/24/23 This note was completed with voice recognition software. The document was reviewed for errors however some may still be present. Please do not hesitate to contact/[facility] the author to verify any questions/concerns. documented [facility] this encounter [email or web address]-04-2023 History of Presen t illness Narrative Date of Call: April 04, 2023 Date of Positive Fall Risk Screenin03/22/2023 PT Referral Placed by PCP: No Result of Call: Answered Patient consent to enroll in Program: No Status of PT Referral: Patient declined Goals: Resources Provided: Additional Comments: Patient completed fall risk screening but declines program participation. documented in this encounter [facility] [place] 10-09-2022 Hospital Discharg e instructions Patient Education 10/09/2022 08:51:06 Hematuria, Adult Hematuria, Adult Hematuria is blood in the urine. Blood may be visible in the urine, or it may be identified with a test. This condition can be caused by infections of the bladder, urethra, kidney, or prostate. Other possible causes include: Kidney stones. Cancer of the urinary tract. Too much calcium in the urine. Conditions that are passed from parent to child (inherited conditions). Exercise that requires a lot of energy. Infections can usually be treated with medicine, and a kidney stone usually will pass through your urine. If neither of these is the cause of your hematuria, more tests may be needed to identify the cause of your symptoms. It is very important to tell your health care provider about any blood in your urine, even if it is painless or the blood stops without treatment. Blood in the urine, when it happens and then stops and then happens again, can be a symptom of a very serious condition, including cancer. There is no pain in the initial stages of many urinary cancers. Follow these instructions at home: Medicines Take xbla-ein-jniouwk and prescription medicines only as told by your health care provider. If you were prescribed an antibiotic medicine, take it as told by your health care provider. Do not stop taking the antibiotic even if you start to feel better. Eating and drinking Drink enough fluid to keep your urine pale yellow. It is recommended that you drink 3 4 quarts (2.8 3.8 L) a day. If you have been diagnosed with an infection, drinking cranberry juice in addition to large amounts of water is recommended. Avoid caffeine, tea, and carbonated beverages. These tend to irritate the bladder. Avoid alcohol because it may irritate the prostate (in males). General instructions If you have been diagnosed with a kidney stone, follow your health care provider's instructions about straining your urine to catch the stone. Empty your bladder often. Avoid holding urine for long periods of time. If you are female: ?After a bowel movement, wipe from front to back and use each piece of toilet paper only once. ?Empty your bladder before and after sex. Pay attention to any changes in your symptoms. Tell your health care provider about any changes or any new symptoms. It is up to you to get the results of any tests. Ask your health care provider, or the department that is doing the test, when your results will be ready. Keep all follow-up visits. This is important. Contact a health care provider if: You develop back pain. You have a fever or chills. You have nausea or vomiting. Your symptoms do not improve after 3 days. Your symptoms get worse. Get help right away if: You develop severe vomiting and are unable to take medicine without vomiting. You develop severe pain in your back or abdomen even though you are taking medicine. You pass a large amount of blood in your urine. You pass blood clots in your urine. You feel very weak or like you might faint. You faint. Summary Hematuria is blood in the urine. It has many possible causes. It is very important that you tell your health care provider about any blood in your urine, even if it is painless or the blood stops without treatment. Take swyx-fqh-ssdoukg and prescription medicines only as told by your health care provider. Drink enough fluid to keep your urine pale yellow. This information is not intended to replace advice given to you by your health care provider. Make sure you discuss any questions you have with your health care provider. Document Revised: 11/17/2020 Document Reviewed: 11/17/2020 Elsevier Patient Education 2022 [employer]. Follow Up Care 10/02/2022 10:55:28 With:SOFIYA MAGANA, Sharla Layton, URL Address: [facility] [address] , [place] [address]- [phone] When:Within 3 Month(s) [facility] 08-29-2022 Hospital Discharg e instructions Patient Education 08/29/2022 13:44:44 Transurethral Resection of the Prostate Transurethral Resection of the Prostate Transurethral resection of the prostate (TURP) is the removal, or resection, of part of the prostate tissue. This procedure is done to treat an enlarged prostate gland (benign prostatic hyperplasia). The goal of TURP is to remove enough prostate tissue to allow for a normal flow of urine. The procedure will allow you to empty your bladder more completely when you urinate so that you can urinate less often. In a transurethral resection, a thin telescope with a light, a camera, and an electric cutting edge (resectoscope) is passed through the urethra and into the prostate. The opening of the urethra is at the end of the penis. Tell a health care provider about: Any allergies you have. All medicines you are taking, including vitamins, herbs, eye drops, creams, and nuar-gsc-fmlgvea medicines. Any problems you or family members have had with anesthetic medicines. Any bleeding problems you have. Any surgeries you have had. Any medical conditions you have. Any prostate infections you have had. What are the risks? Generally, this is a safe procedure. However, problems may occur, including: Infection. Bleeding. Allergic reactions to medicines. Blood in the urine (hematuria). Damage to nearby structures or organs. Other problems may occur, but they are rare. They include: Dry ejaculation, or having no semen come out during orgasm. Erectile dysfunction, or being unable to have or keep an erection. Scarring that leads to narrowing of the urethra. This narrowing may block the flow of urine. Inability to control when you urinate (incontinence). Deep vein thrombosis. This is a blood clot that can develop in your leg. TURP syndrome. This can happen when you lose too much sodium during or after the procedure. Some signs and symptoms of this condition include: ?Weakness. ?Headaches. ?Nausea or vomiting. ?Muscle cramping. What happens before the procedure? When to stop eating and drinking Follow instructions from your health care provider about what you may eat and drink before your procedure. These may include: 8 hours before your procedure ?Stop eating most foods. Do not eat meat, fried foods, or fatty foods. ?Eat only light foods, such as toast or crackers. ?All liquids are okay except energy drinks and alcohol. 6 hours before your procedure ?Stop eating. ?Drink only clear liquids, such as water, clear fruit juice, black coffee, plain tea, and sports drinks. ?Do not drink energy drinks or alcohol. 2 hours before your procedure ?Stop drinking all liquids. ?You may be allowed to take medicines with small sips of water. If you do not follow your health care provider's instructions, your procedure may be delayed or canceled. Medicines Ask your health care provider about: Changing or stopping your regular medicines. This is especially important if you are taking diabetes medicines or blood thinners. Taking medicines such as aspirin and ibuprofen. These medicines can thin your blood. Do not take these medicines unless your health care provider tells you to take them. Taking lwuu-aug-bfmgfyx medicines, vitamins, herbs, and supplements. Surgery safety Ask your health care provider what steps will be taken to help prevent infection. These steps may include: Removing hair at the surgery site. Washing skin with a germ-killing soap. Taking antibiotic medicine. General instructions Do not use any products that contain nicotine or tobacco for at least 4 weeks before the procedure. These products include cigarettes, chewing tobacco, and vaping devices, such as e-cigarettes. If you need help quitting, ask your health care provider. If you will be going home right after the procedure, plan to have a responsible adult: ?Take you home from the hospital or clinic. You will not be allowed to drive. ?Care for you for the time you are told. What happens during the procedure? An IV will be inserted into one of your veins. You will be given one or more of the following: ?A medicine to help you relax (sedative). ?A medicine to make you fall asleep (general anesthetic). ?A medicine that is injected into your spine to numb the area below and slightly above the injection site (spinal anesthetic). Your legs will be placed in foot rests (stirrups) so that your legs are apart and your knees are bent. The resectoscope will be passed through your urethra to your prostate. Parts of your prostate will be resected using the cutting edge of the resectoscope. Fluid will be passed to rinse out the cut tissues (irrigation). The resectoscope will be removed. A small, thin tube (catheter) will be passed through your urethra and into your bladder. The catheter will drain urine into a bag outside of your body. The procedure may vary among health care providers and hospitals. What happens after the procedure? Your blood pressure, heart rate, breathing rate, and blood oxygen level will be monitored until you leave the hospital or clinic. You will be given fluids through the IV. The IV will be removed when you start eating and drinking normally. You may have some pain. Pain medicine will be available to help you. You will have a catheter draining your urine. ?You may have blood in your urine. Your catheter may be kept in until your urine is clear. ?Your urinary drainage will be monitored. If necessary, your bladder may be rinsed out (irrigated) through your catheter. You will be encouraged to walk around as soon as possible. You may have to wear compression stockings. These stockings help to prevent blood clots and reduce swelling in your legs. If you were given a sedative during the procedure, it can affect you for several hours. Do not drive or operate machinery until your health care provider says that it is safe. Summary Transurethral resection of the prostate (TURP) is the removal (resection) of part of the prostate tissue. The goal of this procedure is to remove enough prostate tissue to allow for a normal flow of urine. Follow instructions from your health care provider about taking medicines and about eating and drinking before the procedure. This information is not intended to replace advice given to you by your health care provider. Make sure you discuss any questions you have with your health care provider. Document Revised: 12/13/2021 Document Reviewed: 12/13/2021 [employer] Patient Education 2022 [employer]. Follow Up Care 08/24/2022 09:38:00 With:SOFIYA MAGANA, hSarla Layton, URL Address: [facility] [address] , [place] [address]- Business (1) When: Unknown [facility] 05-01-2022 Hospital Discharg e instructions Patient Education 05/01/2022 10:09:26 Dietary Guidelines to Help Prevent Kidney Stones Dietary Guidelines to Help Prevent Kidney Stones Kidney stones are deposits of minerals and salts that form inside your kidneys. Your risk of developing kidney stones may be greater depending on your diet, your lifestyle, the medicines you take, and whether you have certain medical conditions. Most people can reduce their chances of developing kidney stones by following the instructions below. Depending on your overall health and the type of kidney stones you tend to develop, your dietitian may give you more specific instructions. What are tips for following this plan? Reading food labels Choose foods with no salt added or low-salt labels. Limit your sodium intake to less than 1500 mg per day. Choose foods with calcium for each meal and snack. Try to eat about 300 mg of calcium at each meal. Foods that contain 200 500 mg of calcium per serving include: ?8 oz (237 ml) of milk, fortified nondairy milk, and fortified fruit juice. ?8 oz (237 ml) of kefir, yogurt, and soy yogurt. ?4 oz (118 ml) of tofu. ?1 oz of cheese. ?1 cup (300 g) of dried figs. ?1 cup (91 g) of cooked broccoli. ?1 3 oz can of sardines or mackerel. Most people need 1000 to 1500 mg of calcium each day. Talk to your dietitian about how much calcium is recommended for you. Shopping Buy plenty of fresh fruits and vegetables. Most people do not need to avoid fruits and vegetables, even if they contain nutrients that may contribute to kidney stones. When shopping for convenience foods, choose: ?Whole pieces of fruit. ?Premade salads with dressing on the side. ?Low-fat fruit and yogurt smoothies. Avoid buying frozen meals or prepared deli foods. Look for foods with live cultures, such as yogurt and kefir. Cooking Do not add salt to food when cooking. Place a salt shaker on the table and allow each person to add his or her own salt to taste. Use vegetable protein, such as beans, textured vegetable protein (TVP), or tofu instead of meat in pasta, casseroles, and soups. Meal planning Eat less salt, if told by your dietitian. To do this: ?Avoid eating processed or premade food. ?Avoid eating fast food. Eat less animal protein, including cheese, meat, poultry, or fish, if told by your dietitian. To do this: ?Limit the number of times you have meat, poultry, fish, or cheese each week. Eat a diet free of meat at least 2 days a week. ?Eat only one serving each day of meat, poultry, fish, or seafood. ?When you prepare animal protein, cut pieces into small portion sizes. For most meat and fish, one serving is about the size of one deck of cards. Eat at least 5 servings of fresh fruits and vegetables each day. To do this: ?Keep fruits and vegetables on hand for snacks. ?Eat 1 piece of fruit or a handful of berries with breakfast. ?Have a salad and fruit at lunch. ?Have two kinds of vegetables at dinner. Limit foods that are high in a substance called oxalate. These include: ?Spinach. ?Rhubarb. ?Beets. ?Potato chips and libyan fries. ?Nuts. If you regularly take a diuretic medicine, make sure to eat at least 1 2 fruits or vegetables high in potassium each day. These include: ?Avocado. ?Banana. ?[place]urley, prune, carrot, or tomato juice. ?Baked potato. ?Cabbage. ?Beans and split peas. General instructions Drink enough fluid to keep your urine clear or pale yellow. This is the most important thing you can do. Talk to your health care provider and dietitian about taking daily supplements. Depending on your health and the cause of your kidney stones, you may be advised: ?Not to take supplements with vitamin C. ?To take a calcium supplement. ?To take a daily probiotic supplement. ?To take other supplements such as magnesium, fish oil, or vitamin B6. Take all medicines and supplements as told by your health care provider. Limit alcohol intake to no more than 1 drink a day for non women and 2 drinks a day for men. One drink equals 12 oz of beer, 5 oz of wine, or 1 oz of hard liquor. Lose weight if told by your health care provider. Work with your dietitian to find strategies and an eating plan that works best for you. What foods are not recommended? Limit your intake of the following foods, or as told by your dietitian. Talk to your dietitian about specific foods you should avoid based on the type of kidney stones and your overall health. Grains Breads. Bagels. Rolls. Baked goods. Salted crackers. Cereal. Pasta. Vegetables Spinach. Rhubarb. Beets. Canned vegetables. Pickles. Olives. Meats and other protein foods Nuts. Nut butters. Large portions of meat, poultry, or fish. Salted or cured meats. Deli meats. Hot dogs. Sausages. Dairy Cheese. Beverages Regular soft drinks. Regular vegetable juice. Seasonings and other foods Seasoning blends with salt. Salad dressings. Canned soups. Soy sauce. Ketchup. Barbecue sauce. Canned pasta sauce. Casseroles. Pizza. Lasagna. Frozen meals. Potato chips. Welsh fries. Summary You can reduce your risk of kidney stones by making changes to your diet. The most important thing you can do is drink enough fluid. You should drink enough fluid to keep your urine clear or pale yellow. Ask your health care provider or dietitian how much protein from animal sources you should eat each day, and also how much salt and calcium you should have each day. This information is not intended to replace advice given to you by your health care provider. Make sure you discuss any questions you have with your health care provider. Document Released: 07/14/2011 Document Revised: 07/09/2019 Document Reviewed: 02/27/2017 [employer] Patient Education 2019 [employer]. Follow Up Care 10/28/2021 11:17:16 With:SOFIYA MAGANA, Sharla Layton, RICHELLE Address: [facility] [address], [place] [id number]- When: Unknown [facility] 04-19-2022 Hospital Discharg e instructions Patient Education 04/19/2022 13:43:01 Kidney Stones, Rseh-nb-Sptk Kidney Stones Kidney stones are rock-like masses that form inside of the kidneys. Kidneys are organs that make pee (urine). A kidney stone may move into other parts of the urinary tract, including: The tubes that connect the kidneys to the bladder (ureters). The bladder. The tube that carries urine out of the body (urethra). Kidney stones can cause very bad pain and can block the flow of pee. The stone usually leaves your body (passes) through your pee. You may need to have a doctor take out the stone. What are the causes? Kidney stones may be caused by: A condition in which certain glands make too much parathyroid hormone (primary hyperparathyroidism). A buildup of a type of crystals in the bladder made of a chemical called uric acid. The body makes uric acid when you eat certain foods. Narrowing (stricture) of one or both of the ureters. A kidney blockage that you were born with. Past surgery on the kidney or the ureters, such as gastric bypass surgery. What increases the risk? You are more likely to develop this condition if: You have had a kidney stone in the past. You have a family history of kidney stones. You do not drink enough water. You eat a diet that is high in protein, salt (sodium), or sugar. You are overweight or very overweight (obese). What are the signs or symptoms? Symptoms of a kidney stone may include: Pain in the side of the belly, right below the ribs (flank pain). Pain usually spreads (radiates) to the groin. Needing to pee often or right away (urgently). Pain when going pee (urinating). Blood in your pee (hematuria). Feeling like you may vomit (nauseous). Vomiting. Fever and chills. How is this treated? Treatment depends on the size, location, and makeup of the kidney stones. The stones will often pass out of the body through peeing. You may need to: Drink more fluid to help pass the stone. In some cases, you may be given fluids through an IV tube put into one of your veins at the hospital. Take medicine for pain. Make changes in your diet to help keep kidney stones from coming back. Sometimes, medical procedures are needed to remove a kidney stone. This may involve: A procedure to break up kidney stones using a beam of light (laser) or shock waves. Surgery to remove the kidney stones. Follow these instructions at home: Medicines Take puso-zpw-vqzzfyl and prescription medicines only as told by your doctor. Ask your doctor if the medicine prescribed to you requires you to avoid driving or using heavy machinery. Eating and drinking Drink enough fluid to keep your pee pale yellow. You may be told to drink at least 8 10 glasses of water each day. This will help you pass the stone. If told by your doctor, change your diet. This may include: ?Limiting how much salt you eat. ?Eating more fruits and vegetables. ?Limiting how much meat, poultry, fish, and eggs you eat. Follow instructions from your doctor about eating or drinking restrictions. General instructions Collect pee samples as told by your doctor. You may need to collect a pee sample: ?24 hours after a stone comes out. ?8 12 weeks after a stone comes out, and every 6 12 months after that. Strain your pee every time you pee (urinate), for as long as told. Use the strainer that your doctor recommends. Do not throw out the stone. Keep it so that it can be tested by your doctor. Keep all follow-up visits as told by your doctor. This is important. You may need follow-up tests. How is this prevented? To prevent another kidney stone: Drink enough fluid to keep your pee pale yellow. This is the best way to prevent kidney stones. Eat healthy foods. Avoid certain foods as told by your doctor. You may be told to eat less protein. Stay at a healthy weight. Where to find more information National Kidney Foundation (NKF): www.kidney.org [facility] (UCF): www.urologyhealth.org Contact a doctor if: You have pain that gets worse or does not get better with medicine. Get help right away if: You have a fever or chills. You get very bad pain. You get new pain in your belly (abdomen). You pass out (faint). You cannot pee. Summary Kidney stones are rock-like masses that form inside of the kidneys. Kidney stones can cause very bad pain and can block the flow of pee. The stones will often pass out of the body through peeing. Drink enough fluid to keep your pee pale yellow. This information is not intended to replace advice given to you by your health care provider. Make sure you discuss any questions you have with your health care provider. Document Released: 09/04/2008 Document Revised: 08/05/2019 Document Reviewed: 08/05/2019 [employer] Patient Education 2019 [employer]. Follow Up Care 04/17/2022 09:12:19 With:SOFIYA MAGANA, Sharla Layton, URL Address: [address] [place] [address]- When: Unknown [facility] 10-28-2021 Hospital Discharg e instructions Patient Education 10/28/2021 11:19:02 Prostate Cancer Screening Prostate Cancer Screening The prostate is a walnut-sized gland that is located below the bladder and in front of the rectum in males. The function of the prostate (prostate gland) is to add fluid to semen during ejaculation. Prostate cancer is the second most common type of cancer in men. A screening test for cancer is a test that is done before cancer symptoms start. Screening can help to identify cancer at an early stage, when the cancer can be treated more easily. The recommended prostate cancer screening test is a blood test called the prostate-specific antigen (PSA) test. PSA is a protein that is made in the prostate. As you age, your prostate naturally produces more PSA. Abnormally high PSA levels may be caused by: Prostate cancer. An enlarged prostate that is not caused by cancer (benign prostatic hyperplasia, BPH). This condition is very common in older men. A prostate gland infection (prostatitis). Medicines to assist with hair growth, such as finasteride. Depending on the PSA results, you may need more tests, such as: A physical exam to check the size of your prostate gland. Blood and imaging tests. A procedure to remove tissue samples from your prostate gland for testing (biopsy). Who should have screening? Screening recommendations vary based on age. If you are younger than age 40, screening is not recommended. If you are age 40 54 and you have no risk factors, screening is not recommended. If you are younger than age 55, ask your health care provider if you need screening if you have one of these risk factors: ?Being of -Citizen Of [place] descent. ?Having a family history of prostate cancer. If you are age 55 69, talk with your health care provider about your need for screening and how often screening should be done. If you are older than age 70, screening is not recommended. This is because the risks that screening can cause are greater than the benefits that it may provide (risks outweigh the benefits). If you are at high risk for prostate cancer, your health care provider may recommend that you have screenings more often or start screening at a younger age. You may be at high risk if you: Are older than age 55. Are -Citizen Of [place]. Have a father, brother, or uncle who has been diagnosed with prostate cancer. The risk may be higher if your family member's cancer occurred at an early age. What are the benefits of screening? There is a small chance that screening may lower your risk of dying from prostate cancer. The chance is small because prostate cancer is typically a slow-growing cancer, and most men with prostate cancer from a different cause. What are the risks of screening? The main risk of prostate cancer screening is diagnosing and treating prostate cancer that would never have caused any symptoms or problems (overdiagnosis and overtreatment). PSA screening cannot tell you if your PSA is high due to cancer or a different cause. A prostate biopsy is the only procedure to diagnose prostate cancer. Even the results of a biopsy may not tell you if your cancer needs to be treated. Slow-growing prostate cancer may not need any treatment other than monitoring, so diagnosing and treating it may cause unnecessary stress or other side effects. A prostate biopsy may also cause: Infection or fever. A false negative. This is a result that shows that you do not have prostate cancer when you actually do have prostate cancer. Questions to ask your health care provider When should I start prostate cancer screening? What is my risk for prostate cancer? How often do I need screening? What type of screening tests do I need? How do I get my test results? What do my results mean? Do I need treatment? Contact a health care provider if: You have difficulty urinating. You have pain when you urinate or ejaculate. You have blood in your urine or semen. You have pain in your back or in the area of your prostate. You have trouble getting or maintaining an erection (erectile dysfunction, ED). Summary Prostate cancer is a common type of cancer in men. The prostate (prostate gland) is located below the bladder and in front of the rectum. This gland adds fluid to semen during ejaculation. Prostate cancer screening may identify cancer at an early stage, when the cancer can be treated more easily. The prostate-specific antigen (PSA) test is the recommended screening test for prostate cancer. Discuss the risks and benefits of prostate cancer screening with your health care provider. If you are age 70 or older, screening is likely to lead to more risks than benefits (risks outweigh the benefits). This information is not intended to replace advice given to you by your health care provider. Make sure you discuss any questions you have with your health care provider. Document Released: 12/28/2017 Document Revised: 03/01/2018 Document Reviewed: 12/28/2017 [employer] Patient Education 2020 [employer]. Follow Up Care 08/17/2021 11:01:21 With:SOFIYA MAGANA, Sharla Layton, URL Address: [facility] [address] , [place] [id number]- [phone] When:Within 6 Month(s) Comments:w/ PSA and JASON [facility] 08-16-2021 Hospital Discharg e instructions Patient Education 08/16/2021 14:02:35 Prostate Cancer Screening Prostate Cancer Screening The prostate is a walnut-sized gland that is located below the bladder and in front of the rectum in males. The function of the prostate (prostate gland) is to add fluid to semen during ejaculation. Prostate cancer is the second most common type of cancer in men. A screening test for cancer is a test that is done before cancer symptoms start. Screening can help to identify cancer at an early stage, when the cancer can be treated more easily. The recommended prostate cancer screening test is a blood test called the prostate-specific antigen (PSA) test. PSA is a protein that is made in the prostate. As you age, your prostate naturally produces more PSA. Abnormally high PSA levels may be caused by: Prostate cancer. An enlarged prostate that is not caused by cancer (benign prostatic hyperplasia, BPH). This condition is very common in older men. A prostate gland infection (prostatitis). Medicines to assist with hair growth, such as finasteride. Depending on the PSA results, you may need more tests, such as: A physical exam to check the size of your prostate gland. Blood and imaging tests. A procedure to remove tissue samples from your prostate gland for testing (biopsy). Who should have screening? Screening recommendations vary based on age. If you are younger than age 40, screening is not recommended. If you are age 40 54 and you have no risk factors, screening is not recommended. If you are younger than age 55, ask your health care provider if you need screening if you have one of these risk factors: ?Being of -Citizen Of [place] descent. ?Having a family history of prostate cancer. If you are age 55 69, talk with your health care provider about your need for screening and how often screening should be done. If you are older than age 70, screening is not recommended. This is because the risks that screening can cause are greater than the benefits that it may provide (risks outweigh the benefits). If you are at high risk for prostate cancer, your health care provider may recommend that you have screenings more often or start screening at a younger age. You may be at high risk if you: Are older than age 55. Are -Citizen Of [place]. Have a father, brother, or uncle who has been diagnosed with prostate cancer. The risk may be higher if your family member's cancer occurred at an early age. What are the benefits of screening? There is a small chance that screening may lower your risk of dying from prostate cancer. The chance is small because prostate cancer is typically a slow-growing cancer, and most men with prostate cancer from a different cause. What are the risks of screening? The main risk of prostate cancer screening is diagnosing and treating prostate cancer that would never have caused any symptoms or problems (overdiagnosis and overtreatment). PSA screening cannot tell you if your PSA is high due to cancer or a different cause. A prostate biopsy is the only procedure to diagnose prostate cancer. Even the results of a biopsy may not tell you if your cancer needs to be treated. Slow-growing prostate cancer may not need any treatment other than monitoring, so diagnosing and treating it may cause unnecessary stress or other side effects. A prostate biopsy may also cause: Infection or fever. A false negative. This is a result that shows that you do not have prostate cancer when you actually do have prostate cancer. Questions to ask your health care provider When should I start prostate cancer screening? What is my risk for prostate cancer? How often do I need screening? What type of screening tests do I need? How do I get my test results? What do my results mean? Do I need treatment? Contact a health care provider if: You have difficulty urinating. You have pain when you urinate or ejaculate. You have blood in your urine or semen. You have pain in your back or in the area of your prostate. You have trouble getting or maintaining an erection (erectile dysfunction, ED). Summary Prostate cancer is a common type of cancer in men. The prostate (prostate gland) is located below the bladder and in front of the rectum. This gland adds fluid to semen during ejaculation. Prostate cancer screening may identify cancer at an early stage, when the cancer can be treated more easily. The prostate-specific antigen (PSA) test is the recommended screening test for prostate cancer. Discuss the risks and benefits of prostate cancer screening with your health care provider. If you are age 70 or older, screening is likely to lead to more risks than benefits (risks outweigh the benefits). This information is not intended to replace advice given to you by your health care provider. Make sure you discuss any questions you have with your health care provider. Document Released: 12/28/2017 Document Revised: 03/01/2018 Document Reviewed: 12/28/2017 [employer] Patient Education 2020 [employer]. Follow Up Care 06/27/2021 09:31:40 With:SOFIYA MAGANA, Sharla Layton, URL Address: [facility] [address] , [place] [address]- When:10/17/2021 [facility] Evaluation + Plan note Future Appointments Appointment Date:10/28/2021 09:45:00 AM Scheduled Provider:Sharla MONTIEL MD [facility] Appointment Type:URO Office Visit Diagnostic Tests PendingPSA Total 08/17/21 [facility] Evaluation + Plan note Future Appointments Appointment Date:05/01/2022 09:15:00 AM Scheduled Provider:Sharla MONTIEL MD [facility] Appointment Type:URO Office Visit Diagnostic Tests PendingPSA Total 10/28/21 [facility] Evaluation + Plan note Future Appointments Appointment Date:05/01/2022 09:15:00 AM Scheduled Provider:Sharla MONTIEL MD Location[facility] Appointment Type:URO Office Visit Diagnostic Tests PendingCalculi Analysis Urinary 10/28/21 [facility] Evaluation + Plan note Future Appointments Appointment Date:05/01/2022 09:15:00 AM Scheduled Provider:Sharla MONTIEL MD Location:[facility] Appointment Type:URO Office Visit [facility] Evaluation + Plan note Future Appointments Appointment Date:10/30/2022 10:30:00 AM Scheduled Provider:Sharla MONTIEL MD Location[facility] Appointment Type:URO Office Visit Diagnostic Tests PendingPSA Total 05/01/22 [facility] Evaluation + Plan note Future Appointments Appointment Date:10/30/2022 10:30:00 AM Scheduled Provider:Sharla MONTIEL MD Location[facility] Appointment Type:URO Office Visit [facility] Evaluation + Plan note Future Appointments Appointment Date:02/05/2023 11:30:00 AM Scheduled Provider:Sharla MONTIEL MD Location:[facility] Appointment Type:URO Office Visit [facility] Evaluation + Plan note Future Appointments Appointment Date:01/08/2023 09:30:00 AM Scheduled Provider:Sharla MONTIEL MD Location:[facility] Appointment Type:URO Office Visit [facility] Evaluation note No assessment inform ation available [facility] Work Phone: Evaluation note Diagnosis Non-recurrent unilateral inguinal hernia without obstruction or gangrene- Primary Flank pain Abdominal pain, unspecified site [facility] Acute epididymitis- Primary Other orchitis, epididymitis, and epididymo-orchitis, without mention of abscess Non-recurrent unilateral inguinal hernia without obstruction or gangrene Epididymitis Unspecified orchitis and epididymitis [facility] Narr[facility] No data available for this section [facility] Hospital Discharge instructions No data available for this section [facility] filedocumented in this encounter [facility] filedocumented in this encounter [facility] filedocumented in this encounter [facility] No data available for this section [facility] reason for referral (narrative)* Consultation (Routine) - Authorized Specialty Diagnoses / Procedures Referred By Contac t Referred To Contact General Surgery Diagnoses Non-recurrent unilateral inguinal hernia without obstruction or gangrene Keerthi Gill MD [address] [facility] [address] Jeana Parra DO [address] [place] [id number] Referral ID Status Reason Start Date Expiration Date Visits Requested Visits Authorized [id number] Authorized Specialty Services Required 04/24/2023 04/23/2024 1 1 [facility] Summary Purpose Family History No Family History Records FoundNo Family History Records FoundNo Family History Records FoundNo Family History Records FoundNo Family History Records FoundNo Family History Records FoundNo Family History Records FoundNo Family History Records Found Advance Directives No Advanced Directives Records Found Advance Directive Response Recorded Date/ Time Advance Directives No June 10, 2 019 3:11pm Chief Complaint and Reason for Visit Chief Complaint R29.810 Additional Source Comments (unrecognized sect ion and content) No Status Records FoundNo Status Records FoundNo Status Records FoundNo Status Records FoundNo Status Records FoundNo Status Records FoundNo Status Records FoundNo Status Records Found INFORMATION SOURCE (unrecogn ized section and content) DATE CREATED AUTHOR 03/10/2019 [facility] DATE CREATED AUTHOR AUTHOR'S ORGANIZ ATION 06/04/2021 [facility] Specialist DATE CREATED AUTHOR AUTHOR'S ORGANIZ ATION 05/02/2022 [facility] DATE CREATED AUTHOR AUTHOR'S ORGANIZ ATION 09/10/2022 [facility] DATE CREATED AUTHOR AUTHOR'S ORGANIZ ATION 04/07/2023 [facility] dical Specialists [facility] DATE CREATED AUTHOR AUTHOR'S ORGANIZ ATION 04/29/2023 [facility] DATE CREATED AUTHOR AUTHOR'S ORGANIZ ATION 05/31/2023 [facility] DATE CREATED AUTHOR AUTHOR'S ORGANIZ ATION 06/27/2023 [facility] Care Team (unrecognized sect ion and content) Team Status: Inactive Member Role Status Dates Krishna Solorio DO Attending Provider Active Monica Parham DO Primary Care Provider Active Team Status: Active Member Role Status Dates Monica Parham DO Primary Care Provider Active Operational Intelligence Officer Relationship Specialty Start Date End Date Keerthi Gill MD [address] [place] [address] PCP - General Internal Medicine 03/22/23 Operational Intelligence Officer Relationship Specialty Start Date End Date Keerthi Gill MD [address] [id number] PCP - General Internal Medicine 03/22/23 Operational Intelligence Officer Relationship Specialty Start Date End Date Keerthi Gill MD [address] [place] [address] PCP - General Internal Medicine 03/22/23 Goals (unrecognized section and content) Goals may be documented in a n alternate section Reason for Visit (unrecogniz ed section and content) Reason Comments Hernia Left side groin area , noticed 6 weeks ago Reason Comments Hernia Unilateral inguinal hernia, referred by Dr. Gill Specialty Diagnoses / Procedures Referred By Kirstin abdalla Referred To Contact General Surgery Diagnoses Non-recurrent unilateral inguinal hernia without obstruction or gangrene Keerthi Gill MD [address] [place] [address] Jeana Parra, [address] [place] [id number] Referral ID Status Reason Start Date Expiration Date Visits Requested Visits Authorized [id number] Pending Review Specialty Services Required 04/24/2023 04/23/2024 1 1 FOR RECORDS PERTAINING TO PATIENTS WHO ARE OR HAVE BEEN ENROLLED IN A CHEMICAL DEPENDENCY/SUBSTANCEABUSE PROGRAM, SOME INFORMATION MAY BE OMITTED. This clinical summary was aggregated from multiple sources. Caution should be exercised in using it in the provision of clinical care. This summary normalizes information from multiple sources, and as a consequence, information in this document may materially change the coding, format and clinical context of patient data. In addition, data may be omitted in some cases. CLINICAL DECISIONS SHOULD BE BASED ON THE PRIMARY CLINICAL RECORDS. [employer] [facility]. provides no warranty or guarantee of the accuracy or completeness of information in this document.
[2023-06-29 13:28] LABS: Prostate Specific Antigen Dx 4.13 ng/mL (<=4.00)
== END 2023-06-29 11:23 | disposition home or self-care (01) ==
LOC: LAB 11:25
PROVIDERS: Visit Provider Urology
DX: N20.0 Calculus of kidney (principal); R97.20 Elevated prostate specific antigen [PSA]
CPT/HCPCS: 36415; 84153

== ENCOUNTER 2023-07-26 12:08 | Emergency (ER) | payer BC, SELFPAY ==
[2023-07-26 12:14] VITALS: BP 160/98; PULSE 60; TEMP 36.8; O2SAT 98; BMI 28.0
--- OUTSIDE RECORDS SUMMARY | 2023-07-26 12:35 | XMS_ITS | CCD ---
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 Name Role Phone MONICA PARHAM Primary Care Physician Unavailab DO Krishna Beasley Attending Provider DO Monica Parham Primary Care Provider Monica Parham Primary Care Unavailable Krishna Solorio Attending Unavailabl e Krishna Solorio Admitting Unavailabl e SOFIYA ., DR MAGDALENO Admitting Unavailable MONTIEL ., DR MAGDALENO Consulting Unavailable MONTIEL ., DR MAGDALENO Attending Unavailable WINTER HERNÁNDEZ Consulting Unavailable REQUEST, DR KYLEIGH LISTED Consulting Unavaila ble MONTIEL ., DR MAGDALENO Admitting Unavailable MISC, DR HOWARD Primary Care Unavailable MONTIEL ., DR MAGDALENO Consulting Unavailable MONTIEL ., DR MAGDALENO Attending Unavailable WINTER HERNÁNDEZ Consulting Unavailable MONTIEL ., DR MAGDALENO Admitting Unavailable REQUEST, DR ARIZMENDI LISTED Primary Care Unavaila ble MONTIEL ., DR MAGDALENO Consulting Unavailable MONTIEL ., DR MAGDALENO Attending Unavailable ZIPAUL, DR JOHANNA Layton Consulting Unavailable MADISON BROUSSARD Consulting Unavailable JOHANNA MCDOWELL Consulting Unavailable CHANA, DR GIOVANNY Beaulieu Consulting Unavailable DONALD BHAGAT Admitting Unavailable DONALD BHAGAT Attending Unavailable ARTHUR ONTIVEROS Consulting Unavailable DONALD BHAGAT Consulting Unavailable CHANA, DR GIOVANNY Beaulieu Consulting Unavailable DONALD BHAGAT Admitting Unavailable DONALD BHAGAT Attending Unavailable DONALD BHAGAT Consulting Unavailable MISC, DR HOWARD Primary Care Unavailable MONTIEL ., DR MAGDALENO Admitting Unavailable MONTIEL ., DR MAGDALENO Consulting Unavailable MONTIEL ., DR MAGDALENO Attending Unavailable PEDRO II, SHANIA Consulting Unavailable CLEOPATRA DAVIDSON Consulting Unavailable SARAVANANC, DR HOWARD Primary Care Unavailable CHANA, DR GIOVANNY Beaulieu Consulting Unavailable DIAB ., SANTHOSH Admitting Unavailable DIAB ., SANTHOSH Attending Unavailable GRECHNY .BETTY Consulting Unavailabl e MISC, DR HOWARD Primary Care Unavailable SHAYNA, DR JOE Cardona Admitting Unavailabl e SHAYNA, DR JOE Cardona Attending Unavailabl e ANAECK, DR JOE Cardona Consulting Unavailabl e ZIEBANABELL, DR JOHANNA Layton Consulting Unavailable Jose Alfredo , Keerthi Lopez Primary Care Provider [phone] BRITT REYES Attending Unavailable JOSE ALFREDO, MUHAMID [...] Care Unavailable CORI, MONICA Primary Care Unavailable MONTIEL, Sharla Layton Admitting Unavailable MONTIEL, Sharla Layton Attending Unavailable MONTIEL, Sharla R Attending Unavailable CORI, MONICA Primary Care Unavailable CORI, MONICA Primary Care Unavailable MONTIEL, Sharla R Attending Unavailable MONTIEL, Sharla R Attending Unavailable CORI, MONICA Primary Care Unavailable MONTIEL, Sharla R Attending Unavailable CORI, MONICA Primary Care Unavailable CORI, MONICA Primary Care Unavailable MONTIEL, Sharla R Attending Unavailable CORI, MONICA Primary Care Unavailable MONTIEL, Sharla R Attending Unavailable MONTIEL, Sharla R Attending Unavailable CORI, MONICA Primary Care Unavailable MONTIEL, Sharla R Attending Unavailable CORI, MONICA Primary Care Unavailable Allergies Allergy Classification Reported Allergen(s) Allergy Type Date of Onset Reaction(s) Facility (11 sources) Sulfamethoxazole / Trimethoprim; Translations: [sulfamethoxazole-t rimethoprim] Drug Allergy Unknown (qualifier value) [facility] (11 sources) Sulfonamides (Antibiotic); Translations: [sulfa drugs] Drug allergy Itching (finding), Weal (disorder) [facility] (3 sources) Sulfonamides (Antibiotic); Translations: [SULFA (SULFONAMIDE ANTIBIOTICS)] Drug allergy (disorder) 09-22-19 [facility] (1 source) Sulfonamides (Antibiotic) Drug allergy (disorder) 08-23-19 17 [facility] (3 sources) Sulfonamides (Antibiotic) Propensity to adverse reactions to drug 09-22-19 [facility] Medications Current Medications Medication Drug Class(es) [...] day(s), # 28 cap(s), Refills(s) 0, Pharmacy: [facility]/pharmacy #[id number], 179, cm, 05/01/22 9:25:00 EST, Height/Length Dosing, 88, kg, 05/01/22 9:25:00 EST, Weight Dosing Start Date: 09/18/22 Stop Date: 10/02/22 Status: Ordered dutasteride 0.5 mg oral capsule (4 sources) 5-alpha Reductase Inhibitor Start: 10-09-2022 take 1 capsule by mouth once daily dutasteride 0.5 mg Cap 0.5 mg = 1 cap(s), Oral, Daily, # 30 cap(s), Refills(s) 11, Pharmacy: [facility] #[id number], 178, cm, 10/09/22 8:32:00 EDT, Height/Length Dosing, 91, kg, 10/09/22 8:32:00 EDT, Weight Dosing Start Date: 10/09/22 Status: Ordered Fish Oils (10 sources) Start: 08-17-2021 Fish Oil Oral, Refill(s) [...] day(s), # 14 tab(s), Refills(s) 0, Pharmacy: [facility]/pharmacy #[id number], 179, cm, 05/01/22 9:25:00 EST, Height/Length Dosing, 88, kg, 05/01/22 9:25:00 EST, Weight Dosing Start Date: 05/01/22 Stop Date: 05/15/22 Status: Ordered naproxen 500 mg oral tablet (1 source) Nonsteroidal Anti-inflammatory Drug Start: 06-12-2018 Naproxen Active TABLET June 11, 2018 11:00pm potassium citrate 10 meq extended release oral tablet (12 sources) Start: 09-18-2022 potassium CITRATE 10 mEq ER Tab 10 mEq, 1 tab(s), Oral, BID, 90 tab(s), Refill(s) 3, [facility]/pharmacy #[id number], 179, cm, 05/01/22 9:25:00 EST, Height/Length Dosing, 88, kg, 05/01/22 9:25:00 EST, Weight Dosing Start Date: 09/18/22 Status: Ordered Start: 10-28-2021 potassium CITR ATE 10 mEq ER Tab 10 mEq, 1 tab(s), Oral, BID, 90 tab(s), Refill(s) 3, [facility]/pharmacy #[id number], 177.8, cm, 10/28/21 10:29:00 EDT, Height/Length Dosing, 92.3, kg, 10/28/21 10:29:00 EDT, Weight Dosing Start Date: 10/28/21 Status: Ordered take 1 tablet by gisella th in the morning POTASSIUM CITRATE ORAL Take 1 tablet by mouth in the morning and 1 tablet before bedtime. 0 Active Taltz Autoinjector (1 source) Start: 07-02-2023 Taltz Autoinje ctor mg, SubCutaneous, q4wk, Refills(s) 0 Start Date: 07/02/23 Status: Ordered tamsulosin hydrochloride 0.4 mg oral capsule (5 sources) alpha-Adrenerg ic Gaurang Start: 05-30-2022 take 1 capsule by mouth once daily tamsulosin 0.4 mg Cap 0.4 mg = 1 cap(s), Oral, Daily, # 90 cap(s), Refills(s) 3, Pharmacy: [facility]/pharmacy #[id number], 179, cm, 05/01/22 9:25:00 EST, Height/Length Dosing, 88, kg, 05/01/22 9:25:00 EST, Weight Dosing Start Date: 05/30/22 Status: Ordered Start: 06-13-2018 tamsulosin 0.4 mg Cap Refills(s) 0 Start Date: 04/19/22 Status: Ordered Vitamin D3 (10 sources) Start: 08-17-2021 Vitamin D3 Ref ills(s) [...] recurrent] Onset: 04-24-2023 04-24-2023 Episodic Abdominal pain (14 sources) Flank pain; Translations: [Unspecified abdominal pain] Onset: 08-22-2022 10-11-2018 Episodic Calculus of urinary tract (20 sources) History of calculus of kidney; Translations: [Personal history of urinary calculi] Onset: 08-16-2021 Episodic Genitourinary symptoms and ill-defined conditions (20 sources) Blood in urine; Translations: [Gross hematuria] Onset: 08-16-2021 Episodic Hyperplasia of prostate (20 sources) Benign prostatic hypertrophy with outflow obstruction; Translations: [Benign prostatic hyperplasia with lower urinary tract symptoms] Onset: 08-16-2021 Chronic Inflammatory conditions of male genital organs (1 source) Chronic prostatitis; Translations: [CHRONIC PROSTATITIS] Onset: 08-22-2022 Chronic Inflammatory conditions of male genital organs (15 sources) Prostatitis; Translations: [Acute epididymitis] Onset: 05-23-2023 02-07-2019 Episodic Osteoarthritis (3 sources) Arthritis; Translations: [Unspecified osteoarthritis, unspecified site] Onset: 07-17-2022 07-17-2022 Chronic Other aftercare (1 source) Other superintendent container terminal (current) drug therapy; Translations: [OTH HADOOP ANALYST CURRENT DRUG THERAPY] Onset: 08-28-2022 Episodic Other [...] injuries and conditions due to external causes (5 sources) Foreign body in bladder; Translations: [Foreign body in bladder, initial encounter] Onset: 08-29-2022 Episodic Other nervous system disorders (3 sources) Paresthesia of skin; Translations: [PARESTHESIA OF SKIN] Onset: 08-25-2022 Episodic Other screening for suspected conditions (not mental disorders or infectious disease) (18 sources) Raised prostate specific antigen; Translations: [Elevated prostate specific antigen [PSA]] Onset: 08-16-2021 Episodic Residual codes; unclassified (1 source) Other specified postprocedural states; Translations: [OTH SPECIFIED POSTPROCEDURAL STATES] Onset: 08-28-2022 Episodic Spondylosis; intervertebral disc disorders; other back problems (6 sources) Other intervertebral disc displacement, lumbar region; Translations: [Displacement of lumbar intervertebral disc without myelopathy] Onset: 09-21-2016 09-21-2016 Chronic Spondylosis; intervertebral disc disorders; other back problems (14 sources) Backache; Translations: [Sciatica, right side] Onset: 07-17-2022 02-10-2019 Episodic Unclassified (1 source) Facial weakness; Translations: [Facial weakness] Onset: 04-27-2022 Unclassified (1 source) Establish Care Onset: 03-22-2023 Past or Other Problems Problem Classification Problem Date Documented Date Episodic/Chronic Mood disorders (3 sources) Mood disorders Onset: 03-22-2023 03-22-2023 Nausea and vomiting (3 sources) Postoperative nausea and vomiting; Translations: [Nausea with vomiting, unspecified] Onset: 07-17-2022 07-17-2022 Episodic Results Test Name Value Interpretation Reference Range Facility Ambulatory Visit Summaryon 0 07-02-2023 Ambulatory Visit Summary LOKESH PONCE :1955 Visit Date:07/02/2023 Ambulatory Visit Instructions Your Diagnosis Elevated PSA BPH with urinary obstruction Kidney stone Epididymitis Gross hematuria Tests Performed MRI Pelvis (Soft Tissue) w/ + w/o contrast -- Results Pending -- Please visit your patient portal for your results or contact your primary care physician. Your Care Team Attending Physician - SOFIYA MAGANA, Sharla Layton Primary Care Physician - MONICA PARHAM DO This Is Your Medications List potassium citrate (potassium CITRATE 10 mEq ER Tab) Contact prescribing physician if questions or concerns cholecalciferol (Vitamin D3) ixekizumab (Taltz Autoinjector) omega-3 polyunsaturated fatty acids (Fish Oil) [Image Removed: STOP]Stop taking these medications dutasteride (dutasteride 0.5 mg Cap) Procedures Performed Cystoscopic removal of ureteric stent (08/29/2022), TURP - Transurethral resection of prostate (08/17/2022), Cystoscopy (03/12/2020), TURP - Transurethral resection of prostate (08/31/2016), Cystoscopy (07/04/2016), Cystoscopy (09/30/2014), TURP - Transurethral resection of prostate (04/21/2010), Urodynamics (02/04/2010), Transrectal biopsy of prostate using ultrasound (US) guidance (07/2008), Cystoscopy (07/2005), Appendectomy, Tonsillectomy. Discharge Vitals Temperature (Temporal Artery) 37 ?C Heart Rate (Peripheral) 75 Respiratory Rate 17 Blood Pressure 137/84 Height 178 cm Height 70 in Weight 90.2 kg Weight 198.44 lb BMI 28.47 What to do next Scheduled Follow-Up Appointments Sunday 11:15 AM EDT With: SOFIYA MAGANA, Sharla Layton Where: [facility] Insurance Correspondenceon 0 07-02-2023 Insurance Correspondence [id number] 5#1.00TIFF [facility] Lab Reportson 07-02-2023 Lab Reports [id number] #1.00TIFF [facility] Patient Educationon 07-02-19 24 Patient Education Oncology Prostate Cancer Screening Prostate cancer screening is testing that is done to check for the presence of prostate cancer in men. The prostate gland is a walnut-sized gland that is located below the bladder and in front of the rectum in males. The function of the prostate is to add fluid to semen during ejaculation. Prostate cancer is one of the most common types of cancer in men. Who should have prostate cancer screening? Screening recommendations vary based on age and other risk factors, as well as between the professional organizations who make the recommendations. In general, screening is recommended if: ? You are age 50 to 70 and have an average risk for prostate cancer. You should talk with your health care provider about your need for screening and how often screening should be done. Because most prostate cancers are slow growing and will not cause , screening in this age group is generally reserved for men who have a 10- to 15-year life expectancy. ? You are younger than age 50, and you have these risk factors: ? Having a father, brother, or uncle who has been diagnosed with prostate cancer. The risk is higher if your family member's cancer occurred at an early age or if you have multiple family members with prostate cancer at an early age. ? Being a male who is Black or is of [place] or sub-Saharan descent. In general, screening is not recommended if: ? You are younger than age 40. ? You are between the ages of 40 and 49 and you have no risk factors. ? You are 70 years of age or older. At this age, the risks that screening can cause are greater than the benefits that it may provide. If you are at high risk for prostate cancer, your health care provider may recommend that you have screenings more often or that you start screening at a younger age. How is screening for prostate cancer done? The recommended prostate cancer screening test is a blood test called the prostate-specific antigen (PSA) test. PSA is a protein that is made in the prostate. As you age, your prostate naturally produces more PSA. Abnormally high PSA levels may be caused by: ? Prostate cancer. ? An enlarged prostate that is not caused by cancer (benign prostatic hyperplasia, or BPH). This condition is very common in older men. ? A prostate gland infection (prostatitis) or urinary tract infection. ? Certain medicines such as male hormones (like testosterone) or other medicines that raise testosterone levels. A rectal exam may be done as part of prostate cancer screening to help provide information about the size of your prostate gland. When a rectal exam is performed, it should be done after the PSA level is drawn to avoid any effect on the results. Depending on the PSA results, you may need more tests, such as: ? A physical exam to check the size of your prostate gland, if not done as part of screening. ? Blood and imaging tests. ? A procedure to remove tissue samples from your prostate gland for testing (biopsy). This is the only way to know for certain if you have prostate cancer. What are the benefits of prostate cancer screening? ? Screening can help to identify cancer at an early stage, before symptoms start and when the cancer can be treated more easily. ? There is a small chance that screening may lower your risk of dying from prostate cancer. The chance is small because prostate cancer is a slow-growing cancer, and most men with prostate cancer from a different cause. What are the risks of prostate cancer screening? The main risk of prostate cancer screening is diagnosing and treating prostate cancer that would never have caused any symptoms or problems. This is called overdiagnosisand overtreatment. PSA screening cannot tell you if your [...] cause unnecessary stress or other side effects. Questions to ask your health care provider ? When should I start prostate cancer screening? ? What is my risk for prostate cancer? ? How often do I need screening? ? What type of screening tests do I need? ? How do I get my test results? ? What do my results mean? ? Do I need treatment? Where to find more information ? [employer] [place] [employer]: www.cancer.org ? [employer]: www.auanet.org Contact a health care provider if: ? You have difficulty urinating. ? You have pain when you urinate or ejaculate. ? You have blood in your urine or semen. ? You have pain in your back or in the area of your prostate. Summary ? Prostate cancer is a common type of cancer in men. The prostate gland is located below the bladder and in front of the rectum. This gland adds flu (more content not included)... Normal [facility] Urology Office/Clinic Noteon 07-02-2023 Urology Office/Clinic Note Chief Complaint elvated PSA HPI Staff 6m DX: Gross Hematuria, BPH, Kidney Stone & Elevated PSA *Dutasteride 0.5 QD & Potassium Citrate [address] 01/08/23- 7 cm right kidney cyst, and passage of 8 mm stone on the right side PSA 06/29/23 is 4.13 Dysuria: no Incomplete bladder emptying: no Hematuria: no Frequency: no Urgency: no Nocturia: pt is not getting up Stream: no straining or intermittency Leaking: no Post void dripping: yes Wearing pads/ Depends: no Urge incontinence: no Stress incontinence: no Incontinence without Sensory Awareness: no Abdominal pain: left sided a few weeks ago Flank pain: no Sexual complaints: no History of Present Illness Tests reviewed: reviewed UA, CT scan, PSA I have reviewed the previous health record information and history for this patient from Dr. Montiel. I have reviewed and verified the staff HPI to be accurate for this encounter. Review of Systems PHQ Score Initial Depression Screen Score: 0 SCORE ROS - Provider Constitutional: denies weight loss, denies hot flashes. Eyes: denies eye problems. Gastrointestinal: denies nausea, denies vomiting. Cardiovascular: denies chest pain or angina. Integumentary: no dryness Musculoskeletal: denies musculoskeletal symptoms. ENMT: denies otolaryngeal symptoms. Respiratory: no shortness of breath. Heme/Lymph: denies easy bleeding tendency, denies easy bruising tendency. Psychiatric: no confusion, no anxiety. Genitourinary: See HPI. Physical Exam Vitals & Measurements T: 37 ?C(Temporal Artery) HR: 75(Peripheral) RR: 17 BP: 137/84 HT: 70 in HT: 178 cm WT: 90.2 kg WT: 198.44 lb BMI: 28.47 General Appearance: alert, no distress, well nourished, well developed male. Genitourinary: normal scrotum, normal testes, normal urethra, normal epididymis, normal vas deferens/spermatic cord. Flank Pain: none. Bladder: nonpalpable. Assessment/Plan 1. Elevated PSA (R97.20: Elevated prostate specific antigen [PSA]) PSA 03/08/20 - 4.79 06/03/21 - 5.03 04/26/22 - 4.79 01/05/23 - 5.20 & 16.9% (Dutasteride 10.4) 06/29/23 - 4.13 (Dutasteride 8.26) Last MRI 03/10/19 at [facility] - negative. TRUS/bx 2008 - negative. Discussed PSA level has decreased from prior. Given prior level had increased and level is still elevated, offered to repeat MRI vs biopsy. Pt is agreeable. -Prostate MRI now, will call pt with results. -PSA in 6 mos (pt will no longer be on dutasteride) 2. 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 S/p TURP 08/17/22 - chronic prostatitis. Taking Dutasteride 0.5mg qd. Discussed purpose of medication is to help prevent prostate bleeding and to shrink prostate. Advised pt he can stop Dutasteride due to TURP serving same purpose of shrinking prostate. Pt is agreeable to plan as he prefers to limit medications he has to take. -D/c Dutasteride -Cont sx monitoring 3. Kidney stone (N20.0: Calculus of kidney) KUB 10/05/21 - bilateral nephrolithiasis, R larger than L. S/p R ESWL 10/06/21. Passed stone on 10/09/21. Stone analysis shows 70% uric acid and 30% ca ox. Previous metabolic w/u - low normal citric acid and mildly low urine volume. KUB 04/19/22 [facility] - right renal stone. No ureteral calcifications. CT scan 05/12/22 - right sided nephrolithiasis, enlarged prostate. KUB 06/14/22 - right nephrolithiasis. CHET 06/14/22 - nonobstructing renal stones, probable right renal cyst, enlarged prostate. S/p Cysto/R ureteroscopy with ureteral dilation/R stent placement 08/17/22. S/p R stent removal 08/29/22. KUB 01/05/23 - 15mm stone projecting over the Rt kidney. Personal review: the stone is a linear stone, may not be in the kidney may be in his bowel. -Stated he felt he passed 1-2 stones a week prior to encounter on 01/08/23. CT AP wo con 01/19/23 [facility] - Nonobstructing bilateral R renal calculi. Previous 8 mm calculus in RIP no longer id'd. Taking Potassium Citrate 10 mEq bid. Discussed imaging results. Denies any stone episodes since last encounter. 4. Epididymitis (N45.1: Epididymitis) Pt states he had left testicular pain, worsened when sitting. States he saw PCP for this. Improved after taking Cipro x10 days. No longer having any pain/discomfort. 5. Gross hematuria (R31.0: Gross hematuria) UCx 04/21/22 and 09/15/22 - negative Previously was experiencing intermittent blood in his urine since his TURP due to median lobe and lateral lobes. UA today negative for blood and infection. Denies any recurrence in the past 6 months. -Cont routine UAs and sx monitoring. Pt knows to notify the office if he were to experience gross hematuria or clots. Follow-up With When Contact Information Sharla MONTIEL MD, URL [facility] [address], [place] [address]- [phone] Additional Instructions: 6 mos w/ PSA Patient Education Prostate Cancer Screening Marilu Dolan, personally scri (more content not included)... Normal [facility] Comment on above: Result Comment: Elec tronically Signed By: Sharla MONTIEL MD\.br\Date and Time Signed: 07/02/23 11:00 EDT\.br\Electronically Co-Signed By: Marilu Meng\.br\Date and Time Co-Signed: 07/02/23 10:57 EDT US RETROPERITONEAL COMPLETEo n 04-26-2023 US RETROPERITONEAL [...] Owen Pena on 04/26/2023 4:07 PM Normal [facility] US SCROTUMon 04-26-2023 US SCROTUM US SCROTUM [...] Owen Pena on 04/26/2023 11:02 AM Normal [facility] RAD - CT Reporton 01-26-2023 RAD - CT Report [id number] #1.00TIFF Normal [facility] RAD - CT Report [id number] #1.00TIFF Normal [facility] Ambulatory Visit Summaryon 1 Ambulatory Visit Summary LOKESH PONCE :1955 Visit Date:01/08/2023 Ambulatory Visit Instructions Your Diagnosis Gross hematuria BPH with urinary obstruction Kidney stone Elevated PSA Tests Performed Urnls Dip Stick Auto w/o Microscopy POC 14354 CT Abdomen/Pelvis w/o Contrast -- Results Pending [...] Sharla MONTIEL MD Where: [facility] Lab Reportson 01-08-2023 Lab Reports [id number] #1.00TIFF [facility] Patient Educationon 01-09-20 23 Patient Education Nephrology [...] Spinach (cooked), rhubarb, beets, sweet potatoes, and Mongolian chard. ? Peanuts. ? Potato chips, cypriot fries, and baked potatoes with skin on. ? Nuts and nut products. ? Chocolate. ? If you regularly take a diuretic medicine, make sure to eat at least 1 or 2 servings of fruits or vegetables that are high in potassium each day. These include: ? Avocado. ? Banana. ? Weakley, prune, carrot, or tomato juice. ? Baked [...] fish oil, or vitamin B6. ? Take aqit-sdb-cdfwkeb and prescription medicines only as told by your health care provider. These include supplements. What foods should I limit? Limit your in (more content not included)... Normal [facility] RAD - MISCon 01-08-2023 [facility] - MIS [id number] #1.00TIFF Normal [facility] Urology Office/Clinic Noteon 01-08-2023 Urology Office/Clinic Note [...] low urine volume. KUB done 04/19/22 at [facility] - right renal stone. No ureteral [...] 5.20 & 16.9% Last MRI 03/10/19 at [facility] - negative. TRUS/bx several years ago - negative. Discussed PSA results with pt, slightly increased from previous level. Will continue to monitor. Follow-up With When Contact Information Sharla MONTIEL MD, RICHELLE In 6 months [facility] [address], [place] [address]- Additional Instructions: w/PSA Patient Education Dietary Guidelines to Help Prevent Kidney Stones I, Sierra Pemberton , personally scribed for Dr. Montiel on 01/08/2023 10:37:12. . Documentation recorded by the scribe, Sierra Pemberton, accurately reflects the services(s) I performed and decisions made by me. Pro (more content not included)... Normal [facility] Comment on above: Result Comment: Elec tronically [...] Urnls Dip Stick Auto w/o Microscopy POC 84757 CT Abdomen/Pelvis w/o Contrast -- Results Pending [...] Follow-Up Appointments Sunday 9:30 AM EDT With: hSarla MONTIEL MD Where: [facility] Patient Educationon 10-10-19 23 Patient Education Urology [...] these instructions at home: Medicines ? Take ikts-gge-yplfzfi and prescription medicines only as told by [...] the blood stops without treatment. ? Take fyif-jwx-fnszslu and prescription medicines only as told by your health care provider. ? Drink enough fluid to keep your urine pale yellow. This information is not intended to replace advice given to you by your health care provider. Make sure you discuss any questions you have with your health care provider. Document Revised: 11/17/2020 Document Reviewed: 11/17/2020 [employer] Patient Education ? 2022 [employer]formity. Naveen [facility] Urology Office/Clinic Noteon 10-09-2022 Urology Office/Clinic Note [...] Good Rx card provided. Script sent to Kristi Mantilla. -Follow up in 3 months or sooner [...] low urine volume. KUB done 04/19/22 at [facility] - right renal stone. No ureteral [...] 04/26/22 - 4.79 Last MRI 03/10/19 at [facility] - negative. TRUS/bx several years ago - negative. Follow-up With When Contact Information SOFIYA MAGANA, Sharla Layton, RICHELLE In 3 months [facility] [address], [place] [address]- [phone] Additional Instruc (more content not included)... Normal [facility] Comment on above: Result Comment: Elec tronically [...] FREE TEXT SOURCE: Sharla MONTIEL MD, MD, Sharla Layton FINAL REPORTS Final Report [] Verified Date/Time: 09/20/2022 10:17 EDT No growth at 2 days. Performing Locations R1: This test was performed at: [facility], [address] [place] [address], [id number] , [place], [facility] Comment on above: Performed By: #### 2 [id number] ####[facility] [address] [place] [address] Ambulatory Visit Summaryon 0 09-18-2022 Ambulatory Visit Summary LOKESH PONCE :1955 Visit Date:09/18/2022 Ambulatory Visit Instructions Your Diagnosis UTI symptoms Tests Performed Urnls Dip Stick Auto w/o Microscopy POC 58945 Your Care Team Attending Physician - Sharla [...] Sharla MONTIEL MD Where: [facility] Consent for Procedure/Surger yon 08-30-2022 Consent for Procedure/Surgery [id number]#1.00CD:127 [facility] Patient Educationon 08-30-19 23 Patient Education Urology [...] including vitamins, herbs, eye drops, creams, and maml-zhb-vbqaxwd medicines. ? Any problems you or family [...] tells you to take them. ? Taking ztac-cne-whyjlgj medicines, vitamins, herbs, and supplements. Surgery safety [...] care (more content not included)... Normal [facility] Urology Office/Clinic Noteon 08-29-2022 Urology Office/Clinic Note [...] urine volume. Current KUB done 04/19/22 at [facility] shows right renal stone. No ureteral [...] 06/03/21 - 5.03 Last MRI 03/10/19 at [facility] was negative. neg TRUS/bx several years ago Other obstructive and reflux uropathy (N13.8: Other obstructive and reflux uropathy) Follow-up With When Contact Information SOFIYA MAGANA, Sharla Layton, [facility] [address] [place] [address]- Business (1) Additional Instructions: 6 month w/ KUB Patient Education Transurethral Resection of the Prostate I, Divya Pelaez , personally scribed for Dr. Montiel on 08/29/2022 13:46:40. Documentation recorded by the scribeDivya, accurately reflects the services(s) I performed and [...] Hives) Soci (more content not included)... Normal [facility] Comment on above: Result Comment: Elec tronically Signed By: SOFIYA MAGANA, Sharla Layton\.br\Date and Time Signed: 08/29/22 13:49 EDT\.br\Electronically Co-Signed [...] by: GIOVANNY ZAYAS Date: 2022-08-25 15:47 Normal [facility] Pathology Noteon 08-24-2022 Pathology Note [id number] #1.00CD:127 Normal [facility] Ambulatory Visit Summaryon 0 5-22-2023 Ambulatory Visit Summary LOKESH PONCE :1955 Visit [...] MAGANA, Sharla Layton Where: [facility] Operative Reporton Operative Report [id number] #1.00CD:127 Normal [facility] ECG 12-Leadon 08-13-2022 ECG 12-Lead [id number] #1.00CD:127 Normal [facility] Lab Reportson 08-13-2022 Lab Reports [id number] #1.00CD:127 Normal [facility] PROF CHEM 8 (BAS METB)on Anion gap [Moles/Vol] 7.8 mmol/L Normal [facility] Comment on above: Performed By: #### B MP ####[facility] [address] [place] [address]DrCassidy Carlson Calcium [Mass/Vol] 9.1 mg/dL Normal 8.5-10.1 [facility] Comment on above: Performed By: #### B MP ####[facility] [address] [place] [address]Dr. Leeanna Carlson Chloride [Moles/Vol] 105 mmol/L Normal 98-107 [facility] Comment on above: Performed By: #### B MP ####[facility] [address] [place] [address]Dr. Leeanna Carlson CO2 [Moles/Vol] 28.6 mmol/L Normal 21.0-32.0 [facility] Comment on above: Performed By: #### B MP ####[facility] [address] [place] [address]Dr. Leeanna Carlson Creatinine [Mass/Vol] 1.18 mg/dL Normal 0.70-1.30 [facility] Comment on above: Performed By: #### B MP ####[facility] [address] [place], [place] [address]Dr. Leeanna Carlson EGFR-AF GRENADIAN >60 Normal >=60 [facility] Comment on above: Performed By: #### B MP ####[facility] [address] [place], [place] [address]Dr. Leeanna Carlson EGFR-NON AF GRENADIAN >60 Normal >=60 [facility] Comment on above: Performed By: #### B MP ####[facility] [address] [place], [place] [address]Dr. Leeanna Carlson Glucose [Mass/Vol] 96 mg/dL Normal 74-106 [facility] Comment on above: Performed By: #### B MP ####[facility] [address] [place], [place] [address]Dr. Leeanna Carlson Potassium [Moles/Vol] 4.4 mmol/L Normal 3.5-5.1 [facility] Comment on above: Performed By: #### B MP ####[facility] [address] [place] [address]Dr. Tammieami Carlson Sodium [Moles/Vol] 137 mmol/L Normal 136-145 [facility] Comment on above: Performed By: #### B MP ####[facility] [address] [place] [address]Dr. Leeanna Carlson Urea nitrogen [Mass/Vol] 17.0 mg/dL Normal 7.0-18.0 [facility] Comment on above: Performed By: #### B MP ####[facility] [address] [place] [address]Dr. Leeanna Carlson Urea nitrogen/Creatinine [Mass ratio] 14.4 mg/mg Normal [facility] Comment on above: Performed By: #### B MP ####[facility] [address] [place] [address]Dr. Leeanna Carlson PROTIMEon 08-09-2022 INR Coag (PPP) [Relative time] 1.01 {INR} Normal [facility] Comment on above: Performed By: #### P T, PTT ####[facility] [address] [place], [place] [address]Dr. Leeanna Carlson INR GUIDELINES SEE BELOW Normal [facility] Comment on above: Result Comment: AIRAM RED INR: 2.0 - 3.0 CONDITIONS NOT LISTED BELOW 2.5 - 3.5 FOR PROSTHETIC HEART VALVE REPLACEMENT 2.5 - 3.5 RECURRENT THROMBOSIS Performed By: #### P T, PTT ####[facility] [address] [place], [place] [address]Dr. Leeanna Carlson PT Coag (PPP) [Time] 10.7 s Normal 9.0-11.6 [facility] Comment on above: Performed By: #### P T, PTT ####[facility] [address] [place], [place] [address]Dr. Leeanna Carlson PTTon 08-09-2022 aPTT Coag (Bld) [Time] 29.2 s Normal 22.3-36.2 [facility] Comment on above: Performed By: #### P T, PTT ####[facility] [address] [place], [place] [address]Dr. Leeanna Carlson ED Note-Physicianon 08-05-19 ED Note-Physician [id number] #1.00CD:127 Normal [facility] RAD - CT Reporton 08-04-2022 RAD - CT Report [id number] #1.00CD:127 Normal [facility] Consent for Procedure/Surger yon 08-03-2022 Consent for Procedure/Surgery [id number] #1.00CD:127 Normal [facility] CBC AUTO DIFFon 07-28-2022 BASO # 0.0 103/ul Normal 0.0-0.1 [facility] Comment on above: Performed By: #### C BC #### [facility] [address] [place] [address] Dr. Leeanna Carlson Basophils/100 WBC (Bld) 0.8 % Normal 0.2-2.0 [facility] Comment on above: Performed By: #### C BC #### [facility] [address] [place] [address] Dr. Leeanna Carlson EO # 0.0 103/ul Normal 0.0-0.7 [facility] Comment on above: Performed By: #### C BC #### [facility] [address] [place] [address] Dr. Leeanna Carlson Eosinophils/100 WBC (Bld) 0.6 % Critically low 0.9-7.0 [facility] Comment on above: Performed By: #### C BC #### [facility] [address] [place] [address] Dr. Leeanna Carlson Erythrocyte distribution width (RBC) [Ratio] 13.3 % Normal 11.0-15.0 [facility] Comment on above: Performed By: #### C BC #### [facility] [address] [place] [address] Dr. Leeanna Carlson Hematocrit (Bld) [Volume fraction] 46.5 % Normal 42.0-54.0 [facility] Comment on above: Performed By: #### C BC #### [facility] [address] [place] [address] Dr. Leeanna Carlson Hemoglobin (Bld) [Mass/Vol] 15.4 g/dL Normal 14.0-18.0 [facility] Comment on above: Performed By: #### C BC #### [facility] [address] [place] [address] Dr. Leeanna Carlson IG # 0.01 10e3/ul Normal 0.00-0.03 [facility] Comment on above: Performed By: #### C BC #### [facility] [address] [place] [address] Dr. Leeanna Carlson IG % 0.2 % Normal 0.0-0.5 [facility] Comment on above: Performed By: #### C BC #### [facility] [address] [place] [address] Dr. Leeanna aCrlson LYMPH # 1.8 103/ul Normal 1.2-3.8 [facility] Comment on above: Performed By: #### C BC #### [facility] [address] [place] [address] Dr. Leeanna Carlson Lymphocytes/100 WBC (Bld) 35.0 % Normal 20.5-60.0 [facility] Comment on above: Performed By: #### C BC #### [facility] [address] [place] [address] Dr. Leeanna Carlson MANUAL DIFF REQ NO Normal [facility] Comment on above: Performed By: #### C BC #### [facility] [address] [place] [address] Dr. Leeanna Carlson MCH (RBC) [Entitic mass] 28.4 pg Normal 25.9-34.0 [facility] Comment on above: Performed By: #### C BC #### [facility] [address] [place] [address] Dr. Leeanna Carlson MCHC (RBC) [Mass/Vol] 33.1 g/dL Normal 29.9-35.2 [facility] Comment on above: Performed By: #### C BC #### [facility] [address] [place] [address] Dr. Leeanna Carlson MCV (RBC) [Entitic vol] 85.6 fL Normal 80.0-94.0 [facility] Comment on above: Performed By: #### C BC #### [facility] [address] [place] [address] [address] Leeanna Carlson MONO # 0.6 103/ul Normal 0.3-0.8 [facility] Comment on above: Performed By: #### C BC #### [facility] [address] [place] [address] [address] Leeanna Carlson Monocytes/100 WBC (Bld) 11.5 % Normal 1.7-12.0 [facility] Comment on above: Performed By: #### C BC #### [facility] [address] [place] [address] [address] Leeanna Carlson NEUT # 2.7 103/ul Normal 1.4-6.5 [facility] Comment on above: Performed By: #### C BC #### [facility] [address] [place] [address] Dr. Leeanna Carlson Neutrophils/100 WBC (Bld) 51.9 % Normal 43.0-75.0 [facility] Comment on above: Performed By: #### C BC #### [facility] [address] [place] [address] Dr. Leeanna Carlson Platelet mean volume (Bld) [Entitic vol] 9.9 fL Normal 9.5-13.5 [facility] Comment on above: Performed By: #### C BC #### [facility] [address] [place] [address] Dr. Leeanna Carlson PLT 191 103/ul Normal 150-450 [facility] Comment on above: Performed By: #### C BC #### [facility] [address] [place] [address] Dr. Leeanna Carlson RBC 5.43 106/ul Normal 4.70-6.10 [facility] Comment on above: Performed By: #### C BC #### [facility] [address] [place] [address] Dr. Leeanna Carlson WBC 5.1 103/ul Normal 4.0-11.0 [facility] Comment on above: Performed By: #### C BC #### [facility] [address] [place], [place] [address] ABD/PELVIS WO CONon [...] JOHANNA MARIE Date: 2022-07-28 10:52 Normal [facility] ER URINE PROFILEon 3 Bilirubin Ql (U) Negative Normal NEGATIVE [facility] Comment on above: Performed By: #### U MICRO, ERUR #### [facility] [address] [place], [place] [address] Dr. Leeanna Carlson Clarity (U) CLOUDY Abnormal CLEAR [facility] Comment on above: Performed By: #### U MICRO, ERUR #### [facility] [address] [place] [address] [address] Leeanna Carlson Color (U) BROWN Abnormal YELLOW [facility] Comment on above: Performed By: #### U MICRO, ERUR #### [facility] [address] [place] [address] Dr. Leeanna KEENE A micrscopic examination will be performed if indicated. Normal [facility] Comment on above: Performed By: #### U MICRO, ERUR #### [facility] [address] [address] [address] Leeanna Carlson Glucose Ql (U) Negative Normal NEGATIVE [facility] Comment on above: Performed By: #### U MICRO, ERUR #### [facility] [address] [place] [address] Dr. Leeanna Carlson Hemoglobin Ql (U) LARGE Abnormal NEGATIVE [facility] Comment on above: Performed By: #### U MICRO, ERUR #### [facility] [address] [place] [address] Dr. Leeanna Carlson Ketones Ql (U) Negative Normal NEGATIVE [facility] Comment on above: Performed By: #### U MICRO, ERUR #### [facility] [address] [place] [address] Dr. Leeanna Carlson LEUKOCYTES TRACE Abnormal NEGATIVE [facility] Comment on above: Performed By: #### U MICRO, ERUR #### [facility] [address] [place] [address] Dr. Leeanna Carlson Nitrite Ql (U) Negative Normal NEGATIVE [facility] Comment on above: Performed By: #### U MICRO, ERUR #### [facility] [address] [place] [address] Dr. Leeanna Carlson pH (U) 5.0 [pH] Normal 5-9 [facility] Comment on above: Performed By: #### U MICRO, ERUR #### [facility] [address] [place] [address] Dr. Leeanna Carlson Protein (U) [Mass/Vol] 30 mg/dL Abnormal NEGAT KIERSTEN/ TRACE [facility] Comment on above: Performed By: #### U MICRO, ERUR #### [facility] [address] [place] [address] Dr. Leeanna Carlson SPEC GRAVITY 1.020 Normal 1.005-<=1.025 [facility] Comment on above: Performed By: #### U MICRO, ERUR #### [facility] [address] [place] [address] Dr. Leeanna Carlson UR MICRO IND INDICATED Normal [facility] Comment on above: Performed By: #### U MICRO, ERUR #### [facility] [address] [place] [address] Dr. Leeanna Carlson Urobilinogen Qn (U) 1.0 {Marito'U}/dL Normal 0.2 - 1. 0 [facility] Comment on above: Performed By: #### U MICRO, ERUR #### [facility] [address] [place] [address] Dr. Leeanna Carlson URINE MICROSCOPIC ONLYon BACTERIA NONE SEEN Normal NONE SEEN [facility] Comment on above: Performed By: #### U MICRO, ERUR #### [facility] [address] [place] [address] Dr. Leeanna Carlson Bacteria identified Cx Nom (U) NOT INDICATED Normal [facility] Comment on above: Performed By: #### U MICRO, ERUR #### [facility] [address] [place] [address] Dr. Leeanna Carlson CAST NONE SEEN Normal NONE SEEN [facility] Comment on above: Performed By: #### U MICRO, ERUR #### [facility] [address] [place] [address] Dr. Leeanna Carlson Crystals LM Nom (Urine sed) NONE SEEN Normal NONE SEEN [facility] Comment on above: Performed By: #### U MICRO, ERUR #### [facility] [address] [place] [address] Dr. Leeanna Carlson Epithelial cells LM Ql (Urine sed) RARE Normal NONE SEEN /RARE [facility] Comment on above: Performed By: #### U MICRO, ERUR #### [facility] [address] [place] [address] Dr. Leeanna Carlson MUCOUS NONE SEEN Normal NONE SEEN [facility] Comment on above: Performed By: #### U MICRO, ERUR #### [facility] [address] [place] [address] [address] Leeanna Carlson RBC (U) [#/Vol] /uL Abnormal 0-2 [facility] Comment on above: Performed By: #### U MICRO, ERUR #### [facility] [address] [place] [address] [address] Leeanna Carlson WBC 0-2 Abnormal NONE SEEN [facility] Comment on above: Performed By: #### U MICRO, ERUR #### [facility] [address] [place] [address] [address] Leeanna Carlson CULTURE URINEon 06-14-2022 CULTURE URINE Culture Observations: NO GROWTH. Normal [facility] Comment on above: Performed By: #### U RCX ####[facility] [address] [place] [address]Dr. Leeanna Carlson UA RANDOMon 06-14-2022 Bilirubin Ql (U) Negative Normal NEGATIVE [facility] Comment on above: Performed By: #### U A #### [facility] [address] [place] [address] Dr. Leeanna Carlson Clarity (U) CLEAR Normal CLEAR [facility] Comment on above: Performed By: #### U A #### [facility] [address] [place] [address] Dr. Leeanna Carlson Color (U) LT. YELLOW Normal YELLOW [facility] Comment on above: Performed By: #### U A #### [facility] [address] [place] [address] [address] Leeanna Carlson Glucose Ql (U) Negative Normal NEGATIVE [facility] Comment on above: Performed By: #### U A #### [facility] [address] [place] [address] [address] Leeanna Carlson Hemoglobin Ql (U) SMALL Abnormal NEGATIVE [facility] Comment on above: Performed By: #### U A #### [facility] [address] [place] [address] Dr. Leeanna Carlson Ketones Ql (U) Negative Normal NEGATIVE [facility] Comment on above: Performed By: #### U A #### [facility] [address] [place] [address] Dr. Leeanna Carlson LEUKOCYTES Negative Normal NEGATIVE [facility] Comment on above: Performed By: #### U A #### [facility] [address] [place] [address] Dr. Leeanna Carlson Nitrite Ql (U) Negative Normal NEGATIVE [facility] Comment on above: Performed By: #### U A #### [facility] [address] [place] [address] Dr. Leeanna Carlson pH (U) 6.0 [pH] Normal 5-9 [facility] Comment on above: Performed By: #### U A #### [facility] [address] [place] [address] Dr. Leeanna Carlson SPEC GRAVITY <=1.005 Abnormal 1.005-<=1.025 [facility] Comment on above: Performed By: #### U A #### [facility] [address] [place] [address] Dr. Leeanna Carlson UA PROTEIN Negative Normal NEGATIVE/ TRACE [facility] Comment on above: Performed By: #### U A #### [facility] [address] [place] [address] Dr. Leeanna Carlson Urobilinogen Qn (U) 0.2 {Marito'U}/dL Normal 0.2 - 1. 0 [facility] Comment on above: Performed By: #### U A #### [facility] [address] [place] [address] Dr. Leeanna Carlson US KIDNEYSon 06-14-2022 US [...] ARTHUR ONTIVEROS Date: 2022-06-14 14:27 Normal [facility] XR KUB 1 VIEWon 06-14-2022 XR [...] GIOVANNY ZAYAS Date: 2022-06-14 13:33 Normal [facility] Creatinine (Bld) [Mass/Vol]O rdered By: Dave Solorio on 04-27-2022 Creatinine [Mass/Vol] 1.2 mg/dL 0.6-1.3 [facility] Comment on above: ER/ESD physician is notified/shown all ISTAT results.Critical values may be confirmed by laboratory testing ifdeemed necessary by ER attending doctor. ISTAT XRay CREon 04-27-2022 Creatinine [Mass/Vol] 1.2 mg/dL Normal 0.6-1.3 [facility] Comment on above: Result Comment: ER/E SD physician is notified/shown all ISTAT results. Critical values may be confirmed by laboratory testing if deemed necessary by ER attending doctor. Performed By: #### I SCRE #### [address] Point of Care testing , ISTAT GFR ( > 60 Normal [facility] Comment on above: Result Comment: GFR estimated reference range: According to KDOQI guidelines, <60 ml/min/1.73m2 is sufficient to diagnose a patient with chronic kidney disease. PERFORMED BY: [place] [address] PATHOLOGIST [employer] TRENT STEWART M.D. Performed By: #### I SCRE #### [facility] [address] [place] [address] Point of Care testing , ISTAT GFR (Non- Am > 60 Normal [facility] Comment on above: Performed By: #### I SCRE #### [facility] [address] [place] [address] Point of Care testing , MR head/brain wo/w conon MR head/brain wo/w con [facility] [place] [address] [place] [address] MRI Report Signed Patient: Zander Ponce MR#: [id number] : 1955 Acct:[id number] Age/Sex: 66 / M ADM Date: 04/27/22 Loc: Room: Type: [facility] Attending Dr: Krishna Solorio DO Copies [...] Sebas Kuo M.D.04/27/2022 10:33 AM Dictation Location: [place] [address] Transcribed By: [facility] 04/27/22 1033 Dictated By: Sebas Kuo II, MD 04/27/22 1026 Signed By: 04/27/22 1033 [facility] No Panel InformationOrdered By: Dave Solorio on 04-27-2022 POC Estimated GFR > 60 [facility] Comment on above: GFR estimated refere nce range: According to KDOQI guidelines, <60 ml/min/1.73m2 is sufficient to diagnose a patient with chronic kidney disease. POC Estimated GFR Non- Amer > 60 [facility] XR KUB 1 VIEWon 04-19-2022 XR KUB [...] by: GIOVANNY ZAYAS Date: 2022-04-19 16:59 Normal [facility] XR KUB 1 VIEWon 10-06-2021 XR KUB [...] JOHANNA MARIE Date: 2021-10-06 16:08 Normal [facility] CBC AUTO DIFFon 09-28-2021 BASO # 0.0 103/ul Normal 0.0-0.1 [facility] Comment on above: Performed By: #### C BC ####[facility] [address] [place] [address]Dr. Leeanna Carlosn Basophils/100 WBC (Bld) 0.8 % Normal 0.2-2.0 [facility] Comment on above: Performed By: #### C BC ####[facility] [address]cfisy[address] [place] [address]Dr. Leeanna Carlson EO # 0.1 103/ul Normal 0.0-0.7 [facility] Comment on above: Performed By: #### C BC ####[facility] T[address]qm[address] [place] [address]Dr. Leeanna Carlson Eosinophils/100 WBC (Bld) 2.0 % Normal 0.9-7.0 [facility] Comment on above: Performed By: #### C BC ####[facility] Rzcxhrgopy[address] [place], [place] [address]Dr. Leeanna Carlson Erythrocyte distribution width (RBC) [Ratio] 13.2 % Normal 11.0-15.0 [facility] Comment on above: Performed By: #### C BC ####[facility] Okppmptqll273[address] [place], [place] [address]Dr. Leeanna Carlson Hematocrit (Bld) [Volume fraction] 47.8 % Normal 42.0-54.0 [facility] Comment on above: Performed By: #### C BC ####[facility] F[address]rbwwypvh[address] [place], [place] [address]Dr. Leeanna Carlson Hemoglobin (Bld) [Mass/Vol] 15.8 g/dL Normal 14.0-18.0 [facility] Comment on above: Performed By: #### C BC ####[facility] [address]ceae[address] [place] [address]Dr. Leeanna Aldo IG # 0.01 10e3/ul Normal 0.00-0.03 [facility] Comment on above: Performed By: #### C BC ####[facility] Ngnrrknaol[address] [place], [place] [address]DrCassidy Tammieami Carlson IG % 0.2 % Normal 0.0-0.5 [facility] Comment on above: Performed By: #### C BC ####[facility] Lkcihamihw[address] [place], [place] [address]DrCassidy Carlson LYMPH # 1.4 103/ul Normal 1.2-3.8 [facility] Comment on above: Performed By: #### C BC ####[facility] W[address]smiwstrv[address] [place], [place] [address]DrCassidy Tammieami Carlson Lymphocytes/100 WBC (Bld) 29.1 % Normal 20.5-60.0 [facility] Comment on above: Performed By: #### C BC ####[facility] Mpyfqcwxgs[address] [place], [place] [address]DrCassidy Tammieami Carlson MANUAL DIFF REQ NO Normal [facility] Comment on above: Performed By: #### C BC ####[facility] N[address]qnzowkx[address] [place], [place] [address]DrCassidy Leeanna Aldo MCH (RBC) [Entitic mass] 28.4 pg Normal 25.9-34.0 [facility] Comment on above: Performed By: #### C BC ####[facility] Zyqzmsuyax[address] [place], [place] [address]DrCassidy Leeanna Aldo MCHC (RBC) [Mass/Vol] 33.1 g/dL Normal 29.9-35.2 [facility] Comment on above: Performed By: #### C BC ####[facility] [address] [place], [place] [address]DrCassidy Tammieami Carlson MCV (RBC) [Entitic vol] 86.0 fL Normal 80.0-94.0 [facility] Comment on above: Performed By: #### C BC ####[facility] Pwnezukhtx[address] [place], [place] [address]Dr. Leeanna Carlson MONO # 0.5 103/ul Normal 0.3-0.8 [facility] Comment on above: Performed By: #### C BC ####[facility] [address] [place] [address]Dr. Leeanna Carlson Monocytes/100 WBC (Bld) 9.9 % Normal 1.7-12.0 [facility] Comment on above: Performed By: #### C BC ####[facility] Naccruchrc[address] [place] [address]Dr. Leeanna Carlson NEUT # 2.9 103/ul Normal 1.4-6.5 [facility] Comment on above: Performed By: #### C BC ####[facility] [address]prhyadyc[address] [place] [address]Dr. Leeanna Carlson Neutrophils/100 WBC (Bld) 58.0 % Normal 43.0-75.0 [facility] Comment on above: Performed By: #### C BC ####[facility] Ujveephdpw6024[address] [place], [place] [address]Dr. Leeanna Carlson Platelet mean volume (Bld) [Entitic vol] 10.3 fL Normal 9.5-13.5 [facility] Comment on above: Performed By: #### C BC ####[facility] M[address]qocssqz5[address] [place] [address]Dr. Leeanna Carlson PLT 187 103/ul Normal 150-450 [facility] Comment on above: Performed By: #### C BC ####[facility] Th[address]ow[address]vqx[address] [place] [address]Dr. Leeanna Carlson RBC 5.56 106/ul Normal 4.70-6.10 [facility] Comment on above: Performed By: #### C BC ####[facility] E[address]quk[address] [place] [address]Dr. Leeanna Aldo WBC 4.9 103/ul Normal 4.0-11.0 [facility] Comment on above: Performed By: #### C BC ####[facility] Xbyobandxr52[address] [place], [place] [address]DrCassidy Carlson PROF CHEM 8 (BAS METB)on Anion gap [Moles/Vol] 8.9 mmol/L Normal [facility] Comment on above: Performed By: #### B MP ####[facility] Bounhniieq[address] [place], [place] [address]Dr. Tammieami Carlson Calcium [Mass/Vol] 9.1 mg/dL Normal 8.5-10.1 [facility] Comment on above: Performed By: #### B MP ####[facility] Njfyoladrl64[address] [place], [place] [address]Dr. Leeanna Carlson Chloride [Moles/Vol] 105 mmol/L Normal 98-107 [facility] Comment on above: Performed By: #### B MP ####[facility] Qhexddfynv6864[address] [place], [place] [address]Dr. Tammieami Carlson CO2 [Moles/Vol] 27.8 mmol/L Normal 21.0-32.0 [facility] Comment on above: Performed By: #### B MP ####[facility] Rezutdqsmb434[address] [place], [place] [address]Dr. Leeanna Carlson Creatinine [Mass/Vol] 1.18 mg/dL Normal 0.70-1.30 [facility] Comment on above: Performed By: #### B MP ####[facility] Zxpksgvifw[address] [place], [place] [address]Dr. Leeanna Carlson EGFR-AF GRENADIAN >60 Normal >=60 [facility] Comment on above: Performed By: #### B MP ####[facility] Iappqlimnc92[address] [place], [place] [address]Dr. Leeanna Carlson EGFR-NON AF GRENADIAN >60 Normal >=60 [facility] Comment on above: Performed By: #### B MP ####[facility] Xuvjzkodos[address] [place], [place] [address]Dr. Leeanna Carlson Glucose [Mass/Vol] 110 mg/dL Critically high 74-106 [facility] Comment on above: Performed By: #### B MP ####[facility] Egwrbbeqzs159[address] [place], [place] [address]Dr. Leeanna Carlson Potassium [Moles/Vol] 4.7 mmol/L Normal 3.5-5.1 [facility] Comment on above: Performed By: #### B MP ####[facility] [address]sqcks[address] [place] [address]Dr. Leeanna Carlson Sodium [Moles/Vol] 137 mmol/L Normal 136-145 [facility] Comment on above: Performed By: #### B MP ####[facility] [address]is[address] [place] [address]DrCassidy Carlson Urea nitrogen [Mass/Vol] 22.0 mg/dL Critically high 7.0-18.0 [facility] Comment on above: Performed By: #### B MP ####[facility] [address]ebfeb[address] [place] [address]Dr. Leeanna Carlson Urea nitrogen/Creatinine [Mass ratio] 18.6 mg/mg Normal [facility] Comment on above: Performed By: #### B MP ####[facility] [address]drl[address] [place] [address]Dr. Leeanna Carlson PROTIMEon 09-28-2021 INR Coag (PPP) [Relative time] 0.98 {INR} Normal [facility] Comment on above: Performed By: #### P TT, PT #### [facility] [address] [place] [address] Dr. Leeanna Carlson INR GUIDELINES SEE BELOW Normal [facility] Comment on above: Result Comment: AIRAM RED INR: 2.0 - 3.0 CONDITIONS NOT LISTED BELOW 2.5 - 3.5 FOR PROSTHETIC HEART VALVE REPLACEMENT 2.5 - 3.5 RECURRENT THROMBOSIS Performed By: #### P TT, PT #### [facility] [address] [place] [address] [address] Leeanna Carlson PT Coag (PPP) [Time] 10.6 s Normal 9.0-11.6 [facility] Comment on above: Performed By: #### P TT, PT #### [facility] [address] [address] [address] Leeanna Carlson PTTon 09-28-2021 aPTT Coag (Bld) [Time] 29.3 s Normal 22.3-36.2 [facility] Comment on above: Performed By: #### P TT, PT #### [facility] [address] [place], [place] [address] Dr. Leeanna Carlson [facility] Metabolic Pane puneet 06-03-2021 Albumin [Mass/Vol] 4.6 g/dL Normal 3.6-5.1 [facility] Special[facility] Comment on above: Performed By: #### V ITD, LIPD, CMP #### [facility] [address] [place], [place] [id number] Albumin/Globulin [Mass ratio] 1.9 {ratio} Normal 1.0-2.5 [facility] Comment on above: Performed By: #### V ITD, LIPD, CMP #### [facility] [address] [place], [place] [id number] ALP [Catalytic activity/Vol] 85 U/L Normal 40-129 [facility] Comment on above: Performed By: #### V ITD, LIPD, CMP #### [facility] [address] [place], [place] [id number] ALT [Catalytic activity/Vol] 28 U/L Normal 9-46 [facility] Comment on above: Result Comment: 03/02 Female reference range changed. Performed By: #### V ITD, LIPD, CMP #### [facility] [address] [place], [place] [id number] Anion gap [Moles/Vol] 18 mmol/L Normal 12-20 [facility] Comment on above: Result Comment: Effe ctive 04/07/2019 reference range changed. Performed By: #### V ITD, LIPD, CMP #### [facility] [address] [place], [place] [id number] AST [Catalytic activity/Vol] 25 U/L Normal 10-40 [facility] Comment on above: Performed By: #### V ITD, LIPD, CMP #### [facility] [address] [place], [place] [id number] Bilirubin [Mass/Vol] 0.65 mg/dL Normal 0.30-1.20 [facility] Specialist Comment on above: Performed By: #### V ITD, LIPD, CMP #### [facility] [address] [place], [place] [id number] BUN/CREA 24 Ratio High 6-22 [facility] Comment on above: Performed By: #### V ITD LIPD, CMP #### [facility] [address] [place], [place] [id number] Calcium [Mass/Vol] 9.4 mg/dL Normal 8.6-10.2 [facility] Comment on above: Performed By: #### V ITD LIPD, CMP #### [facility] [address] [place], [place] [id number] Chloride [Moles/Vol] 105 mmol/L Normal 98-107 [facility] Comment on above: Performed By: #### V ITD LIPD, CMP #### [facility] [address] [place], [place] [id number] CO2 [Moles/Vol] 23 mmol/L Normal 20-31 [facility] Comment on above: Performed By: #### V ITD LIPD, CMP #### [facility] [address] [place], [place] [id number] Creatinine [Mass/Vol] 1.1 mg/dL Normal 0.7-1.4 [facility] Comment on above: Performed By: #### V ITD LIPD, CMP #### [facility] [address] [place], [place] [id number] eGFRAA 86 mL/min/1.73m2 Normal >60 [facility] Comment on above: Performed By: #### V ITD, LIPD, CMP #### [facility] [address] [place], [place] [id number] eGFRNAA 71 mL/min/1.73m2 Normal >60 [facility] Comment on above: Performed By: #### V ITD, LIPD, CMP #### [facility] [address] [place], [place] [id number] Globulin (S) [Mass/Vol] 2.4 g/dL Normal 1.9-3.7 [facility] Comment on above: Performed By: #### V ITD, LIPD, CMP #### [facility] [address] [place], [place] [id number] Glucose [Mass/Vol] 97 mg/dL Normal 65-99 [facility] [place] [facility] Comment on above: Result Comment: For FASTING Glucose --- ADA reference ranges: Normal 65-99 mg/dl Prediabetes 100-125 Diabetes >/= 126 Performed By: #### V ITD, LIPD, CMP #### [facility] [address] [place], [place] [id number] Potassium [Moles/Vol] 4.5 mmol/L Normal 3.5-5.5 [facility] Comment on above: Performed By: #### V ITD, LIPD, CMP #### [facility] [address] [place], [place] [id number] Protein [Mass/Vol] 7.0 g/dL Normal 6.1-8.1 [facility] Comment on above: Performed By: #### V ITD, LIPD, CMP #### [facility] [address] [place], [place] [id number] Sodium [Moles/Vol] 141 mmol/L Normal 135-146 [facility] [place] [facility] Comment on above: Performed By: #### V ITD, LIPD, CMP #### [facility] [address] [place], [place] [id number] Urea nitrogen [Mass/Vol] 26 mg/dL High 7-25 [facility] Comment on above: Performed By: #### V ITD, LIPD, CMP #### [facility] [address] [place], [place] [id number] Hemoglobin A1Con 06-03-2021 EAG 125.50 Normal [facility] Comment on above: Performed By: #### A 1C #### [facility] [address] [place], [place] [id number] HbA1c (Bld) [Mass fraction] 6.0 % Normal 4.0-6.0 [facility] Comment on above: Performed By: #### A 1C #### [facility] [address] [place], [place] [id number] Lipid Panelon 06-03-2021 Cholesterol [Mass/Vol] 232 mg/dL High 125-200 [facility] Comment on above: Result Comment: Low risk < 200mg/dL Borderline risk 201-239 mg/dl High risk > or equal to 240 Performed By: #### V ITD, LIPD, CMP #### [facility] [address] [place], [place] [id number] Cholesterol in HDL [Mass/Vol] 68 mg/dL Normal >40 [facility] Comment on above: Result Comment: High Cardiovascular Risk HDL <40 mg/dL Low Cardiovascular Risk HDL > or equal to 60 mg/dl Performed By: #### V ITD, LIPD, CMP #### [facility] [address] [place], [place] [id number] Cholesterol in LDL [Mass/Vol] 153 mg/dL Normal [facility] Comment on above: Result Comment: LDL ATP III CLASSIFICATION LDL less than 100 mg/dl Optimal LDL 100-129 mg/dl Near or above optimal LDL 130-159 Borderline high LDL 160-189 High LDL greater than 189 mg/dl Very High Performed By: #### V ITD, LIPD, CMP #### [facility] [address] [place], [place] [id number] Cholesterol in VLDL [Mass/Vol] 11 mg/dL Normal [facility] Comment on above: Performed By: #### V ITD, LIPD, CMP #### [facility] [address] [place], [place] [id number] Cholesterol.total/Chol esterol in HDL [Mass ratio] 3 {ratio} Normal [facility] Comment on above: Performed By: #### V ITD, LIPD, CMP #### [facility] [address] [place], [place] [id number] Triglyceride [Mass/Vol] 55 mg/dL Normal 30-150 [facility] Comment on above: Result Comment: TRIG ATPIII CLASSIFICATIONS TRIG less than 150 mg/dl Normal TRIG 150-199 mg/dl Borderline High TRIG 200-500 mg/dl High TRIG greather than 500 mg/dl Very High Performed By: #### V ITD, LIPD, CMP #### [facility] [address] [place], [place] [id number] Prostatic Specific Antigen, Totalon 06-03-2021 TPSA 5.030 ng/mL High <4.000 [facility] Comment on above: Result Comment: PSA Test Method: ECLIA/Maira e 601 Performed By: #### P SA #### [facility] [address] [place], [place] [id number] Vitamin D 25-OHon 06-03-2021 VIT D 25 OH 57 ng/ml Normal >29 [facility] Comment on above: Result Comment: Amanda min D Status Deficiency <20 ng/mL Insufficiency 20-29 ng/mL Optimal 30-100 ng/mL Possible Toxicity >=150 ng/mL Performed By: #### V ITD, LIPD, CMP #### [facility] [address] [place], [place] [id number] MRI PROSTATE WO/W IVCONon MRI PROSTATE WO/W [...] prostate and pelvis performed on a 3T (Blackwave) scanner utilizing phase pelvic coil. Sequences obtained: Multiplanar T2-WI with small [id number]-sc-rjpt; Axial diffusion weighted images with multiple B-values and creation of ADC-maps; Dynamic contrast enhanced T1-weighted images through the prostate were also obtained before, during and after the administration of intravenous gadolinium. Prostate dimensions and volume were obtained using a semi-automated software (Sysomos). CONTRAST: IV: 17 cc of (Dotarem). RESULT: [...] of suspicion for clinically significant prostate cancer (Mentcle score 3 + 4 or higher). PI-RADS v2.1 assessment categories: PI-RADS 1: Clinically significant cancer is highly unlikely PI-RADS 2: Clinically significant cancer is unlikely PI-RADS 3: Clinically significant cancer is equivocal PI-RADS 4: Clinically significant cancer is likely PI-RADS 5: Clinically significant cancer is highly likely (V.05) Real Estate Appraiser Supervisor: GEOFF Transcribe Date/Time: Mar 10 2019 1:33P Dictated by : DAVE JONES MD This examination was interpreted and the report reviewed and electronically signed by: DAVE JONES MD on Mar 10 2019 2:15PM EST [id number] Normal [facility] PROGRESSon 03-10-2019 PROGRESS HNO ID: [id number] Author: Hallie Manning) QUIN Saavedra Service: Radiology Author Type: Registered Nurse Type: [...] March 10, 2019 TIME: 12:15 PM Normal [facility] PROGRESS HNO ID: [id number] Author: Rosina Ferrari (Tech) Service: Radiology Author Type: Bridal Consultant Type: Progress Notes Filed: 03/10/2019 12:54 PM [...] Ferrari March 10, 2019 12:54 PM Normal [facility] Vital Signs Date Time Vital Sign Value Performing Clinician Jesse cooper 07-02-2023 09:42-0400 Blood Pressure Location Sharla MONTIEL [facility] 07-02-2023 09:42-0400 Body temperature 98.6 [degF] Sharla MONTIEL [facility] 07-02-2023 09:42-0400 Diastolic blood pressure 84 mm[Hg] Sharla MONTIEL [facility] 07-02-2023 09:42-0400 Heart rate 75 /min Sharla MONTIEL [facility] 07-02-2023 09:42-0400 Respiratory rate 17 /min Sharla MONTIEL [facility] 07-02-2023 09:42-0400 Systolic blood pressure 137 mm[Hg] Sharla MONTIEL [facility] 05-23-2023 13:45-0500 Body height 177.8 cm Jeana Parra DO Work Phone: [employer] 05-23-2023 13:45-0500 Body mass index (BMI) [Ratio] 28.5 kg/m2 Jeana Kovacsilliyury KLEIN [facility] 05-23-2023 13:45-0500 Body weight 90.08 kg Jeana Parra Work Phone: [facility] [employer] 05-23-2023 13:45-0500 Diastolic blood pressure 85 mm[Hg] Jeana Parra Work Phone: [facility] [employer] 05-23-2023 13:45-0500 Heart rate 63 /min Jeana Parra [facility] 05-23-2023 13:45-0500 Systolic blood pressure 134 mm[Hg] Jeana Neyury KLEIN Work Phone: [facility] [employer] [facility] 04-24-2023 13:03-0500 Body mass index (BMI) [Ratio] 29.1 kg/m2 Keerthi Gill MD Work Phone: [facility] [employer] 04-24-2023 13:03-0500 Body temperature 97.7 [degF] Keerthi Gill MD Work Phone: [facility] [employer] 04-24-2023 13:03-0500 Body weight 91.99 kg Keerthi Gill MD Work Phone: [facility] [employer] 04-24-2023 13:03-0500 Diastolic blood pressure 78 mm[Hg] Keerthi Gill MD Work Phone: [facility] [employer] [facility] 04-24-2023 13:03-0500 Heart rate 71 /min Keerthi Gill MD Work Phone: [facility] [employer] 04-24-2023 13:03-0500 SaO2% (BldA) [Mass fraction] 97 % Keerthi Gill MD Work Phone: [facility] [employer] [facility] 04-24-2023 13:03-0500 Systolic blood pressure 134 mm[Hg] Keerthi Gill MD Work Phone: [facility] [employer] [facility] 10-09-2022 08:31-0400 Blood Pressure Location Sharla MONTIEL [facility] 10-09-2022 08:31-0400 Diastolic blood pressure 74 mm[Hg] Sharla MONTIEL [facility] 10-09-2022 08:31-0400 Heart rate 80 /min Sharla MONTIEL [facility] 10-09-2022 08:31-0400 Respiratory rate 16 /min Sharla MONTIEL [facility] 10-09-2022 08:31-0400 Systolic blood pressure 130 mm[Hg] Sharla MONTIEL [facility] 05-01-2022 09:15-0500 Blood Pressure Location Sharla MONTIEL [facility] 05-01-2022 09:15-0500 Diastolic blood pressure 84 mm[Hg] Sharla MONTIEL [facility] 05-01-2022 09:15-0500 Heart rate 75 /min Sharla MONTIEL [facility] 05-01-2022 09:15-0500 Respiratory rate 16 /min Sharla MONTIEL [facility] 05-01-2022 09:15-0500 Systolic blood pressure 129 mm[Hg] Sharla MONTIEL [facility] 04-27-2022 07:35-0500 Body height 177.8 cm DO Monica Cori Work Phone: [facility] 04-27-2022 07:35-0500 Body weight 88.45 kg DO Monica Cori Work Phone: [facility] 04-19-2022 13:20-0500 Blood Pressure Location DONALD ANDREARY [facility] 04-19-2022 13:20-0500 Diastolic blood pressure 74 mm[Hg] DONALD LEOLA [facility] 04-19-2022 13:20-0500 Heart rate 72 /min DONALD LEOLA [facility] 04-19-2022 13:20-0500 Respiratory rate 16 /min DONALD LEOLA [facility] 04-19-2022 13:20-0500 Systolic blood pressure 126 mm[Hg] DONALD LEOLA [facility] 10-28-2021 10:27-0400 Blood Pressure Location Sharla MONTIEL [facility] 10-28-2021 10:27-0400 Diastolic blood pressure 81 mm[Hg] Sharla MONTIEL [facility] 10-28-2021 10:27-0400 Heart rate 54 /min Sharla MONTIEL [facility] 10-28-2021 10:27-0400 Respiratory rate 16 /min Sharla MONTIEL [facility] 10-28-2021 10:27-0400 Systolic blood pressure 134 mm[Hg] Sharla MONTIEL [facility] [employer] 08-17-2021 10:03-0400 Blood Pressure Location Sharla MONTIEL [facility] [employer] 08-17-2021 10:03-0400 Diastolic blood pressure 87 mm[Hg] Sharla MONTIEL [facility] [employer] 08-17-2021 10:03-0400 Heart rate 58 /min Sharla MONTIEL [facility] [employer] 08-17-2021 10:03-0400 Systolic blood pressure 134 mm[Hg] Sharla MONTIEL [facility] [employer] Encounters Encounter Date Encounter Type Care Provider Facility Start: 01-07-2024 ambulatory Sharlaastrid MONTIEL Facili ty:[facility] Start: 07-02-2023 End: 07-03-2023 ambulatory Sharla Calin MONTIEL Facility:[facility] Start: 07-02-2023 End: 07-02-2023 Patient encounter procedure Sharla MONTIEL [facility] [employer] Start: 05-23-2023 End: 05-23-2023 ambulatory JEANA PARRA [facility] Start: 05-23-2023 End: 05-23-2023 Office outpatient visit 15 minutes Jeana Parra DO Work Phone: [facility] Comment on above: Acute epididymitis ( Primary Dx); Non-recurrent unilateral inguinal hernia without obstruction or gangrene; Epididymitis Start: 04-26-2023 End: 04-[facility] Start: 04-24-2023 End: 04-24-2023 ambulatory [facility] Start: 04-24-2023 End: 04-24-2023 Office outpatient visit 25 minutes Keerthi Gill MD Work Phone: [facility] Comment on above: Non-recurrent unilat eral inguinal hernia without obstruction or gangrene (Primary Dx); Flank pain Start: 04-06-2023 End: 04-06-2023 ambulatory BRITT REYES Not Available Start: 04-04-2023 ambulatory Sarah Chase [facility] Quality - Care Coordination Team Start: 04-04-2023 Coordination of care plan Sarah ventura [facility] Quality - Care Coordination Team Start: 03-22-2023 End: 03-22-2023 ambulatory [facility] Start: 01-08-2023 End: 01-09-2023 ambulatory Sharla MONTIEL Facility:[facility] Start: 10-09-2022 End: 10-10-2022 ambulatory MONICA CORI Facility:[facility] Start: 10-09-2022 End: 10-09-2022 Patient encounter procedure Sharla MONTIEL [facility] Start: 09-18-2022 End: 09-19-2022 ambulatory MONICA CORI Facility:[facility] Start: 09-18-2022 End: 09-19-2022 ambulatory MONICA CORI Facility:[facility] Start: 09-18-2022 End: 09-18-2022 Patient encounter procedure Sharla MONTIEL [facility] Start: 08-29-2022 End: 08-30-2022 ambulatory MONICA CORI Facility:[facility] Start: 08-29-2022 End: 08-29-2022 Patient encounter procedure Sharla MONTIEL [facility] Start: 08-25-2022 End: 08-25-[address] DOCTOR HALEY Facility: Start: 08-21-2022 End: 08-22-2022 ambulatory Sharla MONTIEL Facility:[facility] Start: 08-17-2022 End: 08-18-[address] DOCTOR HALEY Facility: Start: 08-12-2022 Encounter for preprocedural cardiovascular examination DR SHARLA MONTIEL . [facility] Start: 08-12-2022 Encounter for preprocedural laboratory examination DR SHARLA MONTIEL . [facility] Start: 08-09-2022 End: 08-10-[address] SHARLA MONTIEL . Facility: Start: 08-09-2022 End: 08-10-2022 Encounter for preprocedural cardiovascular examination DR SHARLA MONTIEL . Facility:[facility] Start: 07-28-2022 End: 07-28-[address] DOCTOR HALEY Facility: Start: 06-14-2022 End: 06-15-[address] GIOVANNY ZAYAS Facility:[facility] Start: 06-14-2022 End: 06-14-2022 Patient encounter procedure DONALD BHAGAT [facility] Start: 05-01-2022 End: 05-01-2022 Patient encounter procedure Sharla MONTIEL [facility] Start: 04-27-2022 End: 04-27-2022 ambulatory Monica G Cori Facility:[facility] Start: 04-27-2022 End: 04-27-2022 ambulatory DO Monica G Cori Work Phone: [facility] Work Phone: Start: 04-27-2022 End: 04-27-2022 Patient encounter procedure DO Monica Cori Work Phone: [facility] [place] Work Phone: Start: 04-19-2022 End: 04-20-[address] GIOVANNY ZAYAS Facility:[facility] Start: 04-19-2022 End: 04-19-2022 Patient encounter procedure DONALD Mario BHAGAT [facility] Start: 10-28-2021 End: 10-28-2021 Lab Drop off Sharla MONTIEL [facility] Start: 10-28-2021 End: 10-28-2021 Patient encounter procedure Sharla MONTIEL [facility] Start: 10-06-2021 End: 10-06-[address] SHARLA MONTIEL . Facility:[facility] Start: 09-28-2021 End: 09-29-[address] SHARLA MONTIEL . Facility:[facility] Start: 08-17-2021 End: 08-17-2021 Patient encounter procedure Sharla MONTIEL [facility] Procedures Date Procedure Procedure Detail Performing Clinician Start: 03-22-2023 Adult depression scr eening assessment Sarah Stone [employer] Start: 11-27-2022 Colonoscopy Sarah ventura [employer] Start: 08-29-2022 Cystoscopic removal of ureteric stent Sharla MONTIEL Start: 08-17-2022 Transurethral prostatectomy Sharla MONTIEL Start: 04-27-2022 MRI of head DO Monica K eefe Work Phone: Start: 03-12-2020 Cystoscopy Sharla FERRELL Start: 08-31-2016 Transurethral prostatectomy Sharla MONTIEL Start: 07-04-2016 Cystoscopy Sharla VAZQUEZS Start: 09-30-2014 Cystoscopy Sharla FERRELL Start: 04-21-2010 Transurethral prostatectomy Sharla MONTIEL Start: 02-04-2010 Urodynamic studies Jesusitar kelli MONTIEL Start: 07-31-2008 Transrectal biopsy o f prostate using ultrasound guidance Sharla MONTIEL Start: 07-31-2005 Cystoscopy Sharla FERRELL Appendectomy Sharla MONTIEL Tonsillectomy Sharla MONTIEL Plan of Treatment Date Care Activity Detail Author Start: 11-27-2032 Screening for malign ant neoplasm of colon Colonoscopy [facility] Start: 06-27-2024 DTaP,Tdap and Td Vac cines (2 - Td or Tdap) DTaP,Tdap and Td Vaccines (2 - Td or Tdap) [facility] Start: 05-23-2024 Adult BMI Screening Adult BMI Screen ing [facility] Start: 05-23-2024 Tobacco Screening Tobacco Screening [facility] Start: 04-24-2024 Adult BMI Screening Adult BMI Screen ing [facility] Start: 04-24-2024 Tobacco Screening Tobacco Screening [facility] Start: 04-04-2024 Fall Risk Screening Fall Risk Screen ing [facility] Start: 03-22-2024 Adult BMI Screening Adult BMI Screen ing [facility] Start: 03-22-2024 Depression Screening Depression Scre ening [facility] Start: 03-22-2024 Fall Risk Screening Fall Risk Screen ing [facility] Start: 03-22-2024 Tobacco Screening Tobacco Screening [facility] Start: 09-25-2023 End: 09-25-2023 Patient encounter procedure 09/25/2023 10:15 AM EDT Office Visit [facility] [address] [facility] [address] Keerthi Gill MD [address], [facility] [place] [place] [address] [facility] Start: 05-02-2023 End: 05-02-2023 Patient encounter procedure 05/02/2023 9:15 AM EST Office Visit [facility] [address] [place] [id number] Jeana Parra DO [address] [place] [address] [facility] Start: 04-26-2023 End: 04-26-2023 Patient encounter procedure [facility] Start: 04-24-2023 End: 04-24-2024 US Retroperitoneum Ultrasound retroperitoneal complete Imaging Routine Flank pain Expected: 04/24/2023, Expires: 04/24/2024 [facility] Comment on above: Expected: 04/24/2023 , Expires: 04/24/2024 Start: 04-24-2023 End: 04-24-2024 US Scrotum and testicle Ultrasound scrotum Imaging Routine Non-recurrent unilateral inguinal hernia without obstruction or gangrene Expected: 04/24/2023, Expires: 04/24/2024 [facility] Work Phone: Comment on above: Expected: 04/24/2023 , Expires: 04/24/2024 Start: 12-01-2022 COVID-19 Vaccine ( season) COVID-19 Vaccine ( season) [facility] Start: 12-01-2022 Influenza vaccination Influenza Vacc ine [facility] Start: 09-23-2007 Administration of varicella zoster vaccine Zoster (Shingles) Vaccine (1 of 2) [facility] Start: 09-23-1975 Adult BMI Follow Up Plan Adult BMI F ollow Up Plan [facility] Start: 1955 Medicare Annual Well ness Visit Medicare Annual Wellness Visit [facility] Immunizations Immunization Date Immunization Notes Care Provider Fa cility 03-03-2022 SARS-CoV-2 (COVID-19 ) [id number] Sharla MONTIEL [facility] 08-20-2021 SARS-CoV-2 (COVID-19 ) mRNA-1273 vaccine Sharla MONTIEL [facility] 03-02-2021 SARS-CoV-2 (COVID-19 ) mRNA-1273 vaccine Sharla MONTIEL [facility] 02-20-2021 SARS-CoV-2 (COVID-19 ) mRNA-1273 vaccine Sharla MONTIEL [facility] 01-23-2021 SARS-CoV-2 (COVID-19 ) mRNA-1273 vaccine Sharla MONTIEL [facility] 06-27-2014 tetanus toxoid, redu juventino diphtheria toxoid, and acellular pertussis vaccine, adsorbed Sharla MONTIEL [facility] Payers Date Payer Category Payer Medicare [id number] 2022 Self-pay [id number] 2014 Unknown BCBS [place] [facility] HMO/PPO/TRUST [id number] 2014-Present [phone] [place] [address] [id number] 1959 Unknown [id number] 1957 Unknown [id number] 2.16.840.1.329399.3.579.2.593 1957 Unknown [id number] 2.16.840.1.049787.3.579.2.593 1957 Unknown [id number] 2.16.840.1.348508.3.579.2.593 1957 Unknown [id number] 2.16.840.1.734459.3.579.2.593 1957 Unknown [id number] 2.16.840.1.391532.3.579.2.593 1957 Unknown [id number] 2.16.840.1.380960.3.579.2.593 1957 Unknown [id number] 2.16.840.1.746176.3.579.2.593 1957 Unknown [id number] 2.16.840.1.888683.3.579.2.593 1957 Unknown [id number] 2.16.840.1.133208.3.579.2.125 9 1957 Unknown [id number] 2.16.840.1.367869.3.579.2.128 6 1957 Unknown [id number] 2.16.840.1.040164.3.579.2.128 6 1957 Unknown [id number] 2.16.840.1.953534.3.579.2.128 6 1957 Unknown [id number] 2.16.840.1.924189.3.579.2.128 6 1957 Unknown [id number] 2.16.840.1.655066.3.579.2.128 6 1957 Unknown [id number] 2.16.840.1.933248.3.579.2.727 1957 Unknown [id number] 2.16.840.1.404940.3.579.2.727 1957 Unknown [id number] 2.16.840.1.265150.3.579.2.727 1957 Unknown [id number] 2.16.840.1.058172.3.579.2.727 1957 Unknown [id number] 2.16.840.1.425198.3.579.2.727 1957 Unknown [id number] 2.16.840.1.359835.3.579.2.727 1957 Unknown [id number] 2.16.840.1.877152.3.579.2.727 1957 Unknown [id number] 2.16.840.1.676982.3.579.2.727 1957 Unknown [id number] 2.16.840.1.018156.3.579.2. Unknown [id number] 2.16.840.1.517190.3.579.2.531 Social History Date Type Detail Facility Start: 08-17-2021 End: 07-02-2023 Tobacco smoking status Never smoked tobacco (finding) [facility] Start: 04-19-2022 Tobacco smoking status Never [facility] Start: 04-23-2020 End: 03-22-2023 Sex Assigned At Male [facility] Start: 1955 Sex Assigned At Male [facility] Start: 07-17-2022 Tobacco use and exposure Smokeless tobacco non-user [facility] Start: 03-22-2023 End: 05-23-2023 Alcohol intake Lifetime non-drinker (finding) [facility] Start: 04-23-2020 End: 03-22-2023 History of Social function [facility] Start: 1955 Sex Assigned At Not on file P [facility] Functional Status Date Assessment Result Facility 07-02-2023 Functional Status N/A [facility] [place] [address]-10-2023 Functional Status N/A [facility] 05-01-2022 Functional Status N/A [facility] 04-19-2022 Functional Status N/A [facility] 10-28-2021 Functional Status N/A [facility] Clinical Notes 08-16-2021 to 07-02-2023 Jeana Parra DO - 05/23/2023 1:45 PM Epi Gill MD - 04/24/2023 1:00 PM Jurgen Stone CMA - 04/04/2023 12:06 PM EST Note Date & Type Note Facility 07-02-2023 Hospital Discharge instructions Patient Education 07/02/2023 10:56:28 Prostate Cancer Screening Prostate Cancer Screening Prostate cancer screening is testing that is done to check for the presence of prostate cancer in men. The prostate gland is a walnut-sized gland that is located below the bladder and in front of the rectum in males. The function of the prostate is to add fluid to semen during ejaculation. Prostate cancer is one of the most common types of cancer in men. Who should have prostate cancer screening? Screening recommendations vary based on age and other risk factors, as well as between the professional organizations who make the recommendations. In general, screening is recommended if: You are age 50 to 70 and have an average risk for prostate cancer. You should talk with your health care provider about your need for screening and how often screening should be done. Because most prostate cancers are slow growing and will not cause , screening in this age group is generally reserved for men who have a 10- to 15-year life expectancy. You are younger than age 50, and you have these risk factors: ?Having a father, brother, or uncle who has been diagnosed with prostate cancer. The risk is higher if your family member's cancer occurred at an early age or if you have multiple family members with prostate cancer at an early age. ?Being a male who is Black or is of D[place] or sub-Saharan descent. In general, screening is not recommended if: You are younger than age 40. You are between the ages of 40 and 49 and you have no risk factors. You are 70 years of age or older. At this age, the risks that screening can cause are greater than the benefits that it may provide. If you are at high risk for prostate cancer, your health care provider may recommend that you have screenings more often or that you start screening at a younger age. How is screening for prostate cancer done? The recommended prostate cancer screening test is a blood test called the prostate-specific antigen (PSA) test. PSA is a protein that is made in the prostate. As you age, your prostate naturally produces more PSA. Abnormally high PSA levels may be caused by: Prostate cancer. An enlarged prostate that is not caused by cancer (benign prostatic hyperplasia, or BPH). This condition is very common in older men. A prostate gland infection (prostatitis) or urinary tract infection. Certain medicines such as male hormones (like testosterone) or other medicines that raise testosterone levels. A rectal exam may be done as part of prostate cancer screening to help provide information about the size of your prostate gland. When a rectal exam is performed, it should be done after the PSA level is drawn to avoid any effect on the results. Depending on the PSA results, you may need more tests, such as: A physical exam to check the size of your prostate gland, if not done as part of screening. Blood and imaging tests. A procedure to remove tissue samples from your prostate gland for testing (biopsy). This is the only way to know for certain if you have prostate cancer. What are the benefits of prostate cancer screening? Screening can help to identify cancer at an early stage, before symptoms start and when the cancer can be treated more easily. There is a small chance that screening may lower your risk of dying from prostate cancer. The chance is small because prostate cancer is a slow-growing cancer, and most men with prostate cancer from a different cause. What are the risks of prostate cancer screening? The main risk of prostate cancer screening is diagnosing and treating prostate cancer that would never have caused any symptoms or problems. This is called overdiagnosisand overtreatment. PSA screening cannot tell you if your [...] cause unnecessary stress or other side effects. Questions to ask your health care provider When should I start prostate cancer screening? What is my risk for prostate cancer? How often do I need screening? What type of screening tests do I need? How do I get my test results? What do my results mean? Do I need treatment? Where to find more information The [place] [employer]: www.cancer.org [place] [employer]: www.auanet.org Contact a health care provider if: You have difficulty urinating. You have pain when you urinate or ejaculate. You have blood in your urine or semen. You have pain in your back or in the area of your prostate. Summary Prostate cancer is a common type of cancer in men. The prostate gland is located below the bladder and in front of the rectum. This gland adds fluid to semen during ejaculation. Prostate cancer screening may identify cancer at an early stage, when the cancer can be treated more easily and is less likely to have spread to other areas of the body. The prostate-specific antigen (PSA) test is the recommended screening test for prostate cancer, but it has associated risks. Discuss the risks and benefits of prostate cancer screening with your health care provider. If you are age 70 or older, the risks that screening can cause are greater than the benefits that it may provide. This information is not intended to replace advice given to you by your health care provider. Make sure you discuss any questions you have with your health care provider. Document Revised: 09/12/2021 Document Reviewed: 09/12/2021 Onevest Patient Education 2022 Conformity. Follow Up Care 01/08/2023 10:36:36 With:SOFIYA MAGANA, Sharla Layton, URL Address: [facility] [address] [place] [address]- [phone] When: Unknown Comments:6 mos w/ [facility] History of Present illness Narrative Images from the original note were not included. [facility] [address] [facility] [address] CONSULT NOTE Zander Ponce 67 y.o. CHIEF COMPLAINT Chief Complaint Patient presents with Hernia Unilateral inguinal hernia, referred by Dr. Jose Alfredo Fermin Berkley Ponce is a 67-year-old male who presents [...] and does not rest. He also plays [employer] 2 times a week. He is very [...] 11/27/2022 Performed by Jeana Parra DO at [facility] COLONOSCOPY N/A 01/07/2018 Performed by Jeana Parra DO at [facility] SURGERY Left LEFT THUMB TONSILLECTOMY TRANSURETHRAL [...] support 24 hours a day or the Osiel fitting underwear he has and if not [...] patient/family/caregiver Referring and communicating with other health live in caregiver No primary diagnosis found. Jeana Parra DO This note was created with the assistance of a speech recognition program. While intending to generate a timely document that accurately reflects the content of the visit, no guarantee can be provided that every grammatical or spelling mistake has been or will be identified or corrected. Thank you for your understanding. [facility] History of Present illness Narrative Images from the original note were not included. [address] [place] [phone] Patient: Zander Ponce Date of : 1955 Encounter Date: 04/24/2023 SUBJECTIVE: Chief Complaint: Chief Complaint Patient presents with Hernia Left side groin area, noticed 6 weeks ago Patient ID: Zander Ponce is a 67 y.o. male. Comes [...] or gangrene - Ultrasound scrotum; Future - [facility] - [place], [place]; Future 67-year-old gentleman who has recently had a colonoscopy completed by Dr. Potts. Will refer to Dr. Parra consideration for surgical intervention. KEERTHI GILL MD Family Medicine Physician [facility] 04/24/23 This note was completed with voice recognition software. The document was reviewed for errors however some may still be present. Please do not hesitate to contact/[facility] the author to verify any questions/concerns. documented in this encounter [employer] 04-04-2023 History of Present illness Narrative Date of Call: April 04, 2023 Date of Positive Fall Risk Screenin03/22/2023 PT Referral Placed by PCP: No Result of Call: Answered Patient consent to enroll in Program: No Status of PT Referral: Patient declined Goals: Resources Provided: Additional Comments: Patient completed fall risk screening but declines program participation. [facility] Discharge instructions Patient Education 10/09/2022 08:51:06 Hematuria, Adult [...] Follow these instructions at home: Medicines Take hbyw-gcd-sgduony and prescription medicines only as told by [...] or the blood stops without treatment. Take qjwd-tdl-ksvkgqq and prescription medicines only as told by your health care provider. Drink enough fluid to keep your urine pale yellow. This information is not intended to replace advice given to you by your health care provider. Make sure you discuss any questions you have with your health care provider. Document Revised: 11/17/2020 Document Reviewed: 11/17/2020 Onevest Patient Education 2022 Conformity. Follow Up Care 10/02/2022 10:55:28 With:SOFIYA MAGANA, Sharla Layton, URL Address: [facility] [address] , [place] [phone] When:Within 3 Month(s) [facility] 08-29-2022 Hospital Discharge instructions Patient Education 08/29/2022 13:44:44 Transurethral Resection [...] including vitamins, herbs, eye drops, creams, and czxk-bjk-jghytsi medicines. Any problems you or family members [...] provider tells you to take them. Taking cdny-lxs-leszzoo medicines, vitamins, herbs, and supplements. Surgery safety [...] provider. Document Revised: 12/13/2021 Document Reviewed: 12/13/2021 Onevest Patient Education 2022 Conformity. Follow Up Care 08/24/2022 09:38:00 With:SOFIYA MAGANA, Sharla Layton, URL Address: [facility] [address] [place] [address]- Business (1) When: Unknown [facility] 05-01-2022 Hospital Discharge instructions Patient Education 05/01/2022 10:09:26 Dietary Guidelines [...] include: ?Spinach. ?Rhubarb. ?Beets. ?Potato chips and cypriot fries. ?Nuts. If you regularly take a diuretic medicine, make sure to eat at least 1 2 fruits or vegetables high in potassium each day. These include: ?Avocado. ?Banana. ?Weakley, prune, carrot, or tomato juice. ?Baked potato. [...] Casseroles. Pizza. Lasagna. Frozen meals. Potato chips. Kiswahili fries. Summary You can reduce your risk [...] 07/14/2011 Document Revised: 07/09/2019 Document Reviewed: 02/27/2017 Onevest Patient Education 2020 Conformity. Follow Up Care 10/28/2021 11:17:16 With:SOFIYA MAGANA, Sharla Layton, URL Address: [facility] [address] , [place] [address]- When: Unknown [facility] 04-19-2022 Hospital Discharge instructions Patient Education 04/19/2022 13:43:01 Kidney Stones, Wgwr-eo-Ejtf Kidney Stones Kidney stones are rock-like masses [...] Follow these instructions at home: Medicines Take fimv-vyq-ghvvhxi and prescription medicines only as told by [...] 09/04/2008 Document Revised: 08/05/2019 Document Reviewed: 08/05/2019 Elsevier Patient Education 2019 [employer]U.S. [employer] Follow Up Care 04/17/2022 09:12:19 With:SOFIYA MAAGNA, Sharla Layton, URL Address: [address] [place] [address] [place] [address]- When: Unknown [facility] 10-28-2021 Hospital Discharge instructions Patient Education 10/28/2021 11:19:02 Prostate Cancer [...] one of these risk factors: ?Being of -[place] descent. ?Having a family history of prostate [...] you: Are older than age 55. Are -[place]. Have a father, brother, or uncle who [...] 12/28/2017 Document Revised: 03/01/2018 Document Reviewed: 12/28/2017 Onevest Patient Education 2020 Conformity. Follow Up Care 08/17/2021 11:01:21 With:SOFIYA MAGANA, Sharla Layton, URL Address: [facility] [address], [place] [phone] When:Within 6 Month(s) Comments:w/ TANIA and JASON [facility] 08-16-2021 Hospital Discharge instructions Patient Education 08/16/2021 14:02:35 Prostate Cancer [...] one of these risk factors: ?Being of -[place] descent. ?Having a family history of prostate [...] you: Are older than age 55. Are -[place]ian. Have a father, brother, or uncle who [...] 12/28/2017 Document Revised: 03/01/2018 Document Reviewed: 12/28/2017 Onevest Patient Education 2020 Conformity. Follow Up Care 06/27/2021 09:31:40 With:Sharla MONTIEL MD, URL Address: [facility] [address], [place] [address]- When:10/17/2021 [facility] Evaluation + Plan note Future Appointments Appointment Date:10/28/2021 09:45:00 AM Scheduled Provider:[facility] MD [facility] Office Visit Diagnostic Tests PendingPSA Total 08/17/21 [facility] Evaluation + Plan note Future Appointments Appointment Date:05/01/2022 09:15:00 AM Scheduled Provider:Sharla MONTIEL MD Location:[facility] [place] Appointment Type:URO Office Visit Diagnostic Tests PendingPSA Total 10/28/21 [facility] Evaluation + Plan note Future Appointments Appointment Date:05/01/2022 09:15:00 AM Scheduled Provider:Sharla MONTIEL MD Location:[facility] [place] Appointment Type:URO Office Visit Diagnostic Tests PendingCalculi Analysis Urinary 10/28/21 [facility] Evaluation + Plan note Future Appointments Appointment Date:05/01/2022 09:15:00 AM Scheduled Provider:Sharla MONTIEL MD Location:[facility] [place] Appointment Type:URO Office Visit [facility] Evaluation + Plan note Future Appointments Appointment Date:10/30/2022 10:30:00 AM Scheduled Provider:Sharla MONTIEL MD [facility] Appointment Type:URO Office Visit Diagnostic Tests PendingPSA Total 05/01/22 [facility] Evaluation + Plan note Future Appointments Appointment Date:10/30/2022 10:30:00 AM Scheduled Provider:Sharla MONTIEL MD Location:[facility] Appointment Type:URO Office Visit [facility] Evaluation + Plan note Future Appointments Appointment Date:02/05/2023 11:30:00 AM Scheduled Provider:Sharla MONTIEL MD Location:[facility] Appointment Type:URO Office Visit [facility] Evaluation + Plan note Future Appointments Appointment Date:01/08/2023 09:30:00 AM Scheduled Provider:Sharla MONTIEL MD Location:[facility] Appointment Type:URO Office Visit [facility] Evaluation + Plan note Future Appointments Appointment Date:01/07/2024 11:15:00 AM Scheduled Provider:Sharla MONTIEL MD Location:[facility] Appointment Type:URO Office Visit Diagnostic Tests PendingPSA Total 07/02/23 [facility] Evaluation note No assessment inform ation available [facility] Work Phone: Evaluation note Diagnosis Non-recurrent unilateral inguinal hernia without obstruction or gangrene- Primary Flank pain Abdominal pain, unspecified site documented in this encounter [facility] Diagnosis Acute epididymitis- Primary Other orchitis, epididymitis, and epididymo-orchitis, without mention of abscess Non-recurrent unilateral inguinal hernia without obstruction or gangrene Epididymitis Unspecified orchitis and epididymitis documented in this encounter [facility] Narrative No data available for this section [facility] Hospital Discharge instructions No data available for this section [facility] filed[facility]ed in this encounter [facility] filedocumented in this encounter [facility] filedocumented in this encounter [facility] No data available for this section [facility] reason for referral (narrative)* Consultation (Routine) - Authorized Specialty Diagnoses / Procedures Referred By Kirstin abdalla Referred To Contact General Surgery Diagnoses Non-recurrent unilateral inguinal hernia without obstruction or gangrene Keerthi Gill MD [address] [place] [address] Jeana Parra DO [address] [place] [id number] Referral ID Status Reason Start Date Expiration Date Visits Requested Visits Authorized [id number] Authorized Specialty Services Required 04/24/2023 04/23/2024 1 1 [facility] Summary Purpose Family History No Family History Records FoundNo Family History Records FoundNo Family History Records FoundNo Family History Records FoundNo Family History Records FoundNo Family History Records FoundNo Family History Records Found No data available for this section No Family History Records Found Advance Directives No Advanced Directives Records Found Advance Directive Response Recorded Date/ Time Advance Directives No June 10 019 3:11pm Chief Complaint and Reason for Visit Chief Complaint R29.810 Additional Source Comments (unrecognized sect ion and content) No Status Records FoundNo Status Records FoundNo Status Records FoundNo Status Records FoundNo Status Records FoundNo Status Records FoundNo Status Records FoundNo Status Records Found INFORMATION SOURCE (unrecogn ized section and content) DATE CREATED AUTHOR 03/10/2019 [facility] DATE CREATED AUTHOR AUTHOR'S ORGANIZ ATION 06/04/[address] [facility] dical Specialist DATE CREATED AUTHOR AUTHOR'S ORGANIZ ATION 05/02/2022 [facility] DATE CREATED AUTHOR AUTHOR'S ORGANIZ ATION 09/10/2022 [facility] DATE CREATED AUTHOR AUTHOR'S ORGANIZ ATION 04/07/2023 [facility] EPIC DATE CREATED AUTHOR AUTHOR'S ORGANIZ ATION 04/29/2023 [facility] DATE CREATED AUTHOR AUTHOR'S ORGANIZ ATION 05/31/2023 [facility] DATE CREATED AUTHOR AUTHOR'S ORGANIZ ATION 07/03/2023 [facility] Care Team (unrecognized sect ion and content) Team Status: Inactive Member Role Status Dates Krishna Solorio , Attending Provider Active Monica Parham DO Primary Care Provider Active Team Status: Active Member Role Status Dates Monica Parham , Primary Care Provider Active [employer] Relationship Specialty Start Date End Date Keerthi Gill MD [address] [place] [address] PCP - General Internal Medicine 03/22/23 [employer] Relationship Specialty Start Date End Date Keerthi Gill MD [address] [place] [address] PCP - General Internal Medicine 03/22/23 [employer] Relationship Specialty Start Date End Date Keerthi Gill MD [address] [place] [address] PCP - General Internal Medicine 03/22/23 Goals [...] obstruction or gangrene Keerthi Gill MD [address] [place] [address] Jeana Parra DO [address] [place] [id number] Referral ID Status Reason Start Date Expiration Date Visits Requested Visits Authorized [id number] Pending Review Specialty Services Required 04/24/2023 04/23/2024 1 FOR RECORDS PERTAINING TO PATIENTS WHO [...] BE BASED ON THE PRIMARY CLINICAL RECORDS. [employer] [facility]. provides no warranty or guarantee of the accuracy or completeness of information in this document.
--- NOTE | 2023-07-26 13:10 | CT_ITS ---
The [address] [address] Patient Name: KATHERINE PONCE MRN: [id number] date: 1955 Sex: M Assigned Patient Location: ER Current Patient Location: Accession/Order Number: [id number] Exam Date: 07/26/2023 13:47 Report Date: 07/26/2023 15:28 At the request of: JEANA DORANTES Procedure: CT head/brain wo con CT ABDOMEN WITHOUT CONTRAST, 07/26/2023 HISTORY: Headache. COMPARISON: None. TECHNIQUE: Noncontrast axial CT images obtained through the head. Reconstructions were obtained in the sagittal and coronal planes. Dose reduction techniques were achieved by using automated exposure control and/or adjustment of mA and/or kV according to patient size and/or use of iterative reconstruction technique. FINDINGS: The paranasal sinuses are clear. Mastoid air cells are clear. Skull base is intact. No skull lesion. Orbital contents are normal. Extracranial soft tissue structures are unremarkable. No hydrocephalus. No mass effect. No shift of midline. No extra-axial fluid collection. No acute hemorrhage. No mass. Dewitt matter and white matter differentiation is intact. CT/CT head/brain wo con IMPRESSION: Normal CT of the head. Electronically authenticated by: IRINEO CHANG Date: 07/26/2023 15:28
--- NOTE | 2023-07-26 13:13 | ED_ITS ---
HPI HPI - General Adult General Chief complaint: Headache Stated complaint: HEADACHE, NAUSEA Time Seen by Provider: 07/26/23 13:01 Source: patient and family () Mode of arrival: walk-in Limitations: no limitations History of Present Illness HPI narrative: 67-year-old male presents to the emergency department with with complaint of persistent headache since this past Sunday. Locating to the right side of his head, describes it as a pressure. Denies prior history of chronic headaches. Today, states the pain has improved, but was sent over for evaluation of temporal arteritis by his eye doctor. States his eye doctor evaluated things, states that he has normal pressures in his eyes. Patient has had associated nausea, light sensitivity. Denies any focal weakness. Quality:?pressure Severity:?moderate Timing:?as above, improved Context: Normal setting and activity? Modifying factors:?as above Associated symptoms: as above Related Data Home Medications ?Medication ?Instructions ?Recorded ?Confirmed ixekizumab 80 mg/mL subcutaneous 80 mg subcut .monthly 07/26/23 07/26/23 auto-injector (FlxOnetz Autoinjector) omega-3 acid ethyl esters 1 gram 1 cap PO DAILY 07/26/23 07/26/23 capsule potassium citrate 10 mEq (1,080 10 meq PO BID 07/26/23 07/26/23 mg) tablet,extended release Previous Rx's ?Medication ?Instructions ?Recorded tizanidine 2 mg capsule 2 mg PO BID PRN muscle pain #7 caps 07/26/23 Allergies Allergy/AdvReac Type Severity Reaction Status Date / Time Sulfa (Sulfonamide AdvReac Mild Verified 07/26/23 12:19 Antibiotics) Opioid HPI Opioid Management Most Recent Opioid Data: Last Pain Scale 3 07/26/23 13:57 Last ED Pain Assessment 07/26/23 13:57 Review of Systems ROS Narrative CONST: Denies fever, chills HENT: Denies congestion, sore throat EYES: + photohobia. Denies eye redness, visual disturbance RESP: Denies cough, shortness of breath CV: Denies chest pain, palpitations GI: + nausea. Denies abd pain, vomiting : Denies dysuria, flank pain MS: Denies back pain, myalgias SKIN: Denies color change, rash NEURO: + headache. Denies dizziness, facial asymmetry, light-headedness, numbness, seizures, syncope, tremors, weakness PSYCHIATRIC: Denies confusion, agitation Exam Narrative Exam Narrative: Vital signs reviewed Nurses notes noted CONST: Nontoxic, well appearing, well nourished, in no distress.? No diaphoresis.?? HENT: normocephalic, atraumatic, moist mucous membrane, no abnormalities of the nose noted, hearing normal, no facial droop. He complains of tenderness to the scalp, right parietal region. No tenderness over the temporal arteries. No pulsatile masses on exam. EYES: Both pupils are dilated, nonreactive. He had medication instilled by his eye doctor to dilate his pupils prior to arrival. EOMI.? normal appearing conjunctiva, no apparent discharge bilat NECK: normal appearance. + right trapezius tenderness misael the base of the neck. CV: normal rate, regular rhythm, no murmur RESP: normal effort, speaking in complete sentences. Lung sounds clear and equal bilat.? No wheezes, rales, rhonchi : no CVA tenderness MS: no edema, injury SKIN: no pallor NEURO: A&Ox 3, GCS = 15, no sensory, motor deficits.? CN normal as tested. NIH = 0.? Patient able to touch left ear with right index finger while standing, eyes closed, arms outstretched.? No abnormalities noted with coordination. [employer], push, pull are strong and equal bilaterally. PSYCH: normal mood, affect.? Normal speech.? Memory intact Constitutional Vital Signs, click to edit/add: Last Vital Signs Temp 98.2 F 07/26/23 12:14 Pulse 50 L 07/26/23 14:58 Resp 16 07/26/23 14:58 BP 131/78 07/26/23 14:58 Pulse Ox 98 07/26/23 14:58 O2 Del Method Room Air 07/26/23 14:58 Course Vital Signs Vital signs: Vital Signs Temperature 98.2 F 07/26/23 12:14 Pulse Rate 60 07/26/23 12:14 Respiratory Rate 16 07/26/23 12:14 Blood Pressure 160/98 H 07/26/23 12:14 Pulse Oximetry 98 07/26/23 12:14 Oxygen Delivery Method Room Air 07/26/23 12:14 Temperature 98.2 F 07/26/23 12:14 Pulse Rate 50 L 07/26/23 14:58 Respiratory Rate 16 07/26/23 14:58 Blood Pressure 131/78 07/26/23 14:58 Pulse Oximetry 98 07/26/23 14:58 Oxygen Delivery Method Room Air 07/26/23 14:58 Medical Decision Making MDM Narrative Medical decision making narrative: This is a pleasant 67-year-old male who presents to the emergency department with with complaint of 2-day history, right-sided headache. Pain has improved into today. Was evaluated by his eye doctor and tested negative for increased ocular pressure. Was sent in for evaluation of possible temporal arteritis. Denies chronic history of headaches. Has had some nausea, photophobia. Denies any focal weakness. On arrival, afebrile, vital signs are stable. On exam, nontoxic, well-appearing patient in no distress. He has tenderness to light palpation to the right side of his scalp. Patient's head is shaved. He also had some tenderness to the right trapezius at the base of his neck. No tenderness over the temporal arteries. No pulsatile mass noted. Pupils are nonreactive, but patient had his eyes dilated prior to arrival. He is ambulatory with steady gait. [employer], push, pull are strong and equal bilaterally. He is able to touch left ear with right index finger, while standing, arms outstretched, eyes closed. Heart regular rate and rhythm. Lung sounds clear and equal bilaterally. No focal findings of deficits on exam. Labs reveal no leukocytosis, anemia, thrombocytopenia, elevated, renal impairme nt. C-reactive protein not detected. CT head imaging, per radiologist reveals no acute findings. Patient treated with IV fluids, Compazine, Benadryl, and Toradol with overall improvement of his symptoms. Suspect musculoskeletal headache based on history and physical exam ICH less likely based on imaging Temporal arteritis less likely based on history and physical exam, laboratory evaluation. Glaucoma less likely based on prearrival evaluation by optometry. Disposition ? The patient was discharged. Plan: Patient will be discharged to home. Condition at time of disposition: stable and improved Prescription for tizanidine sent to his pharmacy ? Advised to follow up with primary provider. Advised to return for any worsening and/or development of new, concerning signs or symptoms PLEASE NOTE: Portions of the medical record may have been produced using electronic regional telecommunications specialist and may contain errors with respect to translation of words which may not have been identified prior to finalization of the chart. Medical Records Medical records reviewed: Yes I reviewed the patient's medical records Lab Data Lab results reviewed: Yes I reviewed the patient's lab results Labs: Lab Results 07/26/23 Range/Units 13:32 WBC 5.3 (4.0-11.0) 10^3/uL RBC 5.41 (4.70-6.10) 10^6/uL Hgb 15.6 (14.0-18.0) g/dL Hct 46.5 (42.0-54.0) % MCV 86.0 (80.0-94.0) fL MCH 28.8 (25.9-34.0) pg MCHC 33.5 (29.9-35.2) g/dL RDW 13.2 (11.0-15.0) % Plt Count 198 (150-450) 10^3/uL MPV 10.1 (9.5-13.5) fL Neut % (Auto) 59.7 (43.0-75.0) % Lymph % (Auto) 30.2 (20.5-60.0) % Lipscomb % (Auto) 8.9 (1.7-12.0) % Eos % (Auto) 0.4 L (0.9-7.0) % Baso % (Auto) 0.8 (0.2-2.0) % Neut # (Auto) 3.2 (1.4-6.5) 10^3/uL Lymph # (Auto) 1.6 (1.2-3.8) 10^3/uL Lipscomb # (Auto) 0.5 (0.3-0.8) 10^3/uL Eos # (Auto) 0.0 (0.0-0.7) 10^3/uL Baso # (Auto) 0.0 (0.0-0.1) 10^3/uL Abs Immat Gran (auto) 0.00 (0.00-0.03) 10^3/uL Imm/Tot Granulo (auto) 0.0 (0.0-0.5) % ESR 5 (<=20) mm/hr Sodium 140 (136-145) mmol/L Potassium 4.6 (3.5-5.1) mmol/L Chloride 104 (98-107) mmol/L Carbon Dioxide 28.8 (21.0-32.0) mmol/L Anion Gap 11.8 BUN 21.0 H (7.0-18.0) mg/dL Creatinine 1.22 (0.70-1.30) mg/dL Est GFR ( Amer) >60 (>=60) Est GFR (Non-Af Amer) 60 (>=60) BUN/Creatinine Ratio 17.2 Glucose 108 H (74-106) mg/dL Calcium 9.6 (8.5-10.1) mg/dL C-Reactive Protein <0.50 (<=0.50) mg/dL Imaging Data CT scan - head: Radiologist's impression: ITS Impressions Head CT 07/26/23 13:10 IMPRESSION: Normal CT of the head. Electronically authenticated by: IRINEO CHANG Date: 07/26/2023 15:28 Discharge Plan Discharge Stand Alone Forms: Portal Instructions Chief Complaint: Headache Clinical Impression: Nausea Headache Qualifiers: Headache type: unspecified Headache chronicity pattern: acute headache Intractability: not intractable Qualified Code(s): R51.9 - Headache, unspecified Patient Disposition: Home, Self-Care Time of Disposition Decision: 14:33 Condition: Good Mode of Transportation: Private Vehicle Prescriptions / Home Meds: New tizanidine 2 mg capsule 2 mg PO BID PRN (Reason: muscle pain) Qty: 7 0RF No Action potassium citrate 10 mEq (1,080 mg) tablet extended release 10 meq PO BID omega-3 acid ethyl esters 1 gram capsule 1 cap PO DAILY Taltz Autoinjector 80 mg/mL auto-injector 80 mg SUBCUT .monthly Rx Instructions: every 28 days. Due 07/29 Print Language: Spanish Instructions: Acute Headache (ED) Referrals: Physician,Non-Staff, MD [Primary Care Provider] - 1 week Discharge Date/Time: 07/26/23 15:00
[2023-07-26] MEDS: KETOROLAC TROMETHAMINE 30 MG/ML VIAL 15 MG IVP (13:33)
[2023-07-26] MEDS: DIPHENHYDRAMINE HCL 50 MG/ML (1ML) VIAL 25 MG IV (13:33)
[2023-07-26] MEDS: PROCHLORPERAZINE 10 MG/2 ML VIAL IV (13:35)
[2023-07-26] MEDS: 0.9 % SODIUM CHLORIDE 1,000 ML 999 ML IV (13:42)
[2023-07-26 13:45] VITALS: BP 138/79; PULSE 54; O2SAT 99
[2023-07-26 13:47] LABS: Basophils Percent Auto 0.8 % (0.2-2.0); Eosinophils Percent Auto 0.4 % (0.9-7.0); Hematocrit 46.5 % (42.0-54.0); Hemoglobin 15.6 g/dL (14.0-18.0); Lymphocytes Absolute Auto 1.6 10^3/uL (1.2-3.8); Lymphocytes Percent Auto 30.2 % (20.5-60.0); Mean Corpuscular HGB Conc 33.5 g/dL (29.9-35.2); Mean Corpuscular Hemoglobin 28.8 pg (25.9-34.0); Mean Platelet Volume 10.1 fL (9.5-13.5); Monocytes Absolute Auto 0.5 10^3/uL (0.3-0.8); Monocytes Percent Auto 8.9 % (1.7-12.0); Neutrophils Absolute Auto 3.2 10^3/uL (1.4-6.5); Neutrophils Percent Auto 59.7 % (43.0-75.0); Platelet Count 198 10^3/uL (150-450); Red Blood Count 5.41 10^6/uL (4.70-6.10); Red Cell Distribution Width 13.2 % (11.0-15.0); White Blood Count 5.3 10^3/uL (4.0-11.0)
[2023-07-26 13:56] LABS: Anion Gap 11.8; BUN Creatinine Ratio 17.2; C Reactive Protein <0.50 mg/dL (<=0.50); Calcium 9.6 mg/dL (8.5-10.1); Carbon Dioxide 28.8 mmol/L (21.0-32.0); Chloride 104 mmol/L (98-107); Estimated GFR (African America >60 (>=60); Estimated GFR (Non-African Ame 60 (>=60); Glucose 108 mg/dL (74-106); Potassium 4.6 mmol/L (3.5-5.1); Sodium 140 mmol/L (136-145)
[2023-07-26 14:16] LABS: Erythrocyte Sedimentation Rate 5 mm/hr (<=20)
[2023-07-26 14:58] VITALS: BP 131/78; PULSE 50; O2SAT 98
== END 2023-07-26 15:00 | disposition home or self-care (01) ==
PROVIDERS: Physician Assistant; Emergency Provider Emergency Medicine
DX: R51.9 Headache, unspecified (principal); R11.0 Nausea; Z79.899 Other long term (current) drug therapy
CPT/HCPCS: 36415; 70450; 80048; 85025; 85652; 86140; 96374; 96375; 99285

== ENCOUNTER 2024-01-04 15:34 | Outpatient (OUT) | payer BC, SELFPAY ==
--- OUTSIDE RECORDS SUMMARY | 2024-01-04 15:40 | XMS_ITS | CCD ---
Author Organization [facility] Care Team Providers Care Grocery Clerk Name Role Phone MONICA PARHAM Primary Care Physician Unavailab DO Krishna Beasley Attending Provider DO Monica Parham Primary Care Provider MONTIEL ., DR MAGDALENO Admitting Unavailable MONTIEL ., DR MAGDALENO Consulting Unavailable MONTIEL ., DR MAGDALENO Attending Unavailable HERNÁNDEZWINTER HUNG Consulting Unavailable REQUEST, DR NONE LISTED Consulting [...] Unavailable CHANA, DR GIOVANNY Beaulieu Consulting Unavailable LEOLA, DONALD Admitting Unavailable LEOLA, DONALD Attending Unavailable LEOLA, DONALD Consulting Unavailable MISC, DR HOWARD Primary Care Unavailable MONTIEL ., DR MAGDALENO Admitting Unavailable MONTIEL ., DR MAGDALENO Consulting Unavailable MONTIEL ., DR MAGDALENO Attending Unavailable PEDRO IISHANIA Consulting Unavailable CLEOPATRA DAVIDSON Consulting Unavailable SARAVANANC, DR HOWARD Primary Care Unavailable CHANA, DR GIOVANNY Beaulieu Consulting Unavailable DIAB ., SANTHOSH Admitting Unavailable DIAB ., SANTHOSH Attending Unavailable GRECHNY ., BETTY ROCKWELL Consulting Unavailabl e MISC, DR HOWARD Primary Care Unavailable SHAYNA, DR JOE Cardona Admitting Unavailabl e SHAYNA, DR JOE Cardona Attending Unavailabl e SHAYNA, DR JOE Cardona Consulting Unavailabl e CYNTHIA, DR JOHANNA Layton Consulting Unavailable Jose Alfredo Keerthi MAGANA Primary Care Provider BRITT REYES Attending Unavailable JOSE ALFREDO, MUHAMID M Attending Unavailable JOSE ALFREDO, MUHAMID M Referring Unavailable JOSE ALFREDO, MUHAMID M Primary Care Unavailable JOSE ALFREDO, MUHAMID M Attending Unavailable JOSE ALFREDO, MUHAMID M Referring Unavailable JOSE ALFREDO, MUHAMID M Primary Care Unavailable MD Sharla Montiel Attending Provider NON STAFF Primary Care Provider UnavailJORDAN Melissa Attending Unavailable JOSE ALFREDO, MUHAMID M Referring [...] Sharla R Attending Unavailable MONTIEL, Sharla R Admitting Unavailable CORI, MONICA Primary Care Unavailable [...] Care Unavailable MONTIEL, Sharla R Attending Unavailable NON STAFF Primary Care Unavailable Montiel, Sharla Attending Unavailable Montiel, Sharla Admitting Unavailable Allergies Allergy Classification Reported Allergen(s) Allergy Type Date of Onset Reaction(s) Facility (11 sources) Sulfamethoxazole / Trimethoprim; Translations: [sulfamethoxazole-t rimethoprim] Drug Allergy Unknown (qualifier value) [facility] (11 sources) Sulfonamides (Antibiotic); Translations: [sulfa drugs] Drug allergy Itching (finding), Weal (disorder) [facility] (1 source) Sulfonamides (Antibiotic) Drug allergy (disorder) 08-23-19 17 [facility] Repository (5 sources) Sulfonamides (Antibiotic); Translations: [SULFA (SULFONAMIDE ANTIBIOTICS)] Propensity to adverse reactions to drug 09-22-19 17 [facility] (1 source) Sulfonamides (Antibiotic) Drug allergy (disorder) 06-13-19 19 [facility] Repository Medications Current Medications Medication Drug Class(es) Dates Sig (Normalized) Sig (Original) acetaminophen 325 mg / HYDROcodone bitartrate 5 mg oral tablet (2 sources) Opioid Agonist Start: 06-12-2018 Hydrocodone-Acetamin ophen Active TABLET June 12, 2018 12:00am cholecalciferol, vitamin D3, (VITAMIN D3 ORAL) (3 [...] day(s), # 28 cap(s), Refills(s) 0, Pharmacy: [facility]/pharmacy #[id number], 179, cm, 05/01/22 9:25:00 EST, Height/Length Dosing, 88, kg, 01/30/23 9:25:00 EST, Weight Dosing Start Date: 09/18/22 Stop Date: 10/02/22 Status: Ordered dutasteride 0.5 mg oral capsule (4 sources) 5-alpha Reductase Inhibitor Start: 10-09-2022 take 1 capsule by mouth once daily dutasteride 0.5 mg Cap 0.5 mg = 1 cap(s), Oral, Daily, # 30 cap(s), Refills(s) 11, [id number], 178, cm, 10/09/22 8:32:00 EDT, Height/Length Dosing, [...] day(s), # 14 tab(s), Refills(s) 0, Pharmacy: [facility]/pharmacy #[id number], 179, cm, 05/01/22 9:25:00 EST, Height/Length Dosing, 88, kg, 05/01/22 9:25:00 EST, Weight Dosing Start Date: 05/01/22 Stop Date: 05/15/22 Status: Ordered naproxen 500 mg oral tablet (2 sources) Nonsteroidal Anti-inflammatory Drug Start: 06-12-2018 Naproxen Active TABLET June 12, 2018 12:00am potassium citrate 10 meq extended release oral tablet (12 sources) Start: 09-18-2022 potassium CITRATE 10 mEq ER Tab 10 mEq, 1 tab(s), Oral, BID, 90 tab(s), Refill(s) 3, [facility]/pharmacy #[id number], 179, cm, 05/01/22 9:25:00 EST, Height/Length Dosing, 88, kg, 05/01/22 9:25:00 EST, Weight Dosing Start Date: 09/18/22 Status: Ordered Start: 10-28-2021 potassium CITR ATE 10 mEq ER Tab 10 mEq, 1 tab(s), Oral, BID, 90 tab(s), Refill(s) 3, [facility] #[id number], 177.8, cm, 10/28/21 10:29:00 EDT, Height/Length [...] Ordered tamsulosin hydrochloride 0.4 mg oral capsule (6 sources) alpha-Adrenerg ic Gaurang Start: 05-30-2022 take 1 capsule by mouth once daily tamsulosin 0.4 mg Cap 0.4 mg = 1 cap(s), Oral, Daily, # 90 cap(s), Refills(s) 3, Pharmacy: [facility]/pharmacy #[id number], 179, cm, 05/01/22 9:25:00 EST, Height/Length Dosing, 88, kg, 05/01/22 9:25:00 EST, Weight Dosing Start Date: 05/30/22 Status: Ordered Start: 06-13-2018 take 0.4 mg by mouth every twenty-four hours Tamsulosin Active 0.4 MG PO Q24H 20 June 13, 2018 12:00am Vitamin D3 (10 sources) Start: 08-17-2021 Vitamin [...] specified as recurrent] Onset: 04-24-2023 04-24-2023 Episodic Calculus of urinary tract (20 sources) History of calculus of kidney; Translations: [Personal history of urinary calculi] Onset: 08-16-2021 Episodic Genitourinary symptoms and ill-defined conditions (20 sources) Blood in urine; Translations: [Gross hematuria] Onset: 08-16-2021 Episodic Headache; including migraine (1 source) New daily persistent headache (NDPH); Translations: [New daily persistent headache (ndph)] Onset: 07-31-2023 Chronic Headache; including migraine (1 source) Headache Onset: 07-31-2023 Episodic Hyperplasia of prostate (20 sources) Benign [...] 07-17-2022 Chronic Other aftercare (1 source) Other vermin exterminator (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) 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 therapy; Translations: [OTH CARE HOME CURRENT DRUG THERAPY] Onset: 08-28-2022 Episodic Other [...] conditions (not mental disorders or infectious disease) (19 sources) Raised prostate specific antigen; Translations: [Elevated [...] Onset: 07-17-2022 02-10-2019 Episodic Unclassified (1 source) Establish Care Onset: 03-22-2023 Past or Other Problems Problem Classification Problem Date Documented Date Episodic/Chronic Abdominal pain (14 sources) Flank pain; Translations: [Unspecified abdominal pain] Onset: 08-22-2022 10-11-2018 Episodic Mood disorders (3 sources) Mood disorders Onset: 03-22-2023 03-22-2023 Nausea and vomiting (3 sources) Postoperative nausea and vomiting; Translations: [Nausea with vomiting, unspecified] Onset: 07-17-2022 07-17-2022 Episodic Results Test Name Value Interpretation Reference Range Facility RAD - MRI Reporton RAD - MRI Report [id number] #1.00TIFF Normal [facility] Creatinine (Bld) [Mass/Vol]O rdered By: Sharla Montiel on 07-30-2023 Creatinine [Mass/Vol] 1.3 mg/dL 0.6-1.3 [facility] Comment on above: ER/ESD physician is notified/shown all ISTAT results.Critical values may be confirmed by laboratory testing ifdeemed necessary by ER attending doctor. ISTAT XRay CREon 07-30-2023 Creatinine [Mass/Vol] 1.3 mg/dL Normal 0.6-1.3 [facility] Comment on above: Result Comment: ER/E SD physician is notified/shown all ISTAT results. Critical values may be confirmed by laboratory testing if deemed necessary by ER attending doctor. Performed By: #### I SCRE #### [address] ISTAT GFR > 60.0 Normal [facility] Comment on above: Result Comment: PERF ORMED BY: [place] [address] PATHOLOGIST HEAD MIXER TRENT STEWART M.D. Performed By: #### I SCRE #### [address] MR prostate wo/w conon 07-29 MR prostate wo/w con [facility] Main [place] [address] [place] [address] MRI Report Signed Patient: Zander Ponce MR#: [id number] : 1955 Acct:[id number] Age/Sex: 67 / M ADM Date: 07/30/23 Loc: Room: Type: [facility] Attending Dr: Sharla Montiel MD Copies to: Sharla Montiel MD Ordering Provider: Sharla Montiel MD Date of Service: 07/30/23 MR/MR prostate wo/w con: R97.20 EXAMINATION: MR prostate wo/w con HISTORY: Elevated PSA COMPARISON: NONE TECHNIQUE: Multiparametric imaging of the prostate gland was performed with IV contrast. FINDINGS: Prostate Dimensions: 5.6 x 4.5 x 6.1 cm. Prostate Volume: 89 mL Peripheral Zone: Heterogenous inT2 signal suggestive of prior prostatitis. No suspicious T2 or ADC map abnormality is identified to suggest prostate malignancy. Central/Transitional Zone: BPH changes. Seminal Vesicles: Unremarkable Neurovascular bundles: Unremarkable. Lymphadenopathy: No evidence of lymphadenopathy. Bladder: No focal lesion. Bowel: The visualized bowel is without acute abnormality. Peritoneal Cavity: No free fluid. Bones: No suspicious bony lesion. MR/MR prostate wo/w con IMPRESSION: No MRI evidence of clinically significant prostate cancer. Impression dictated by: Terrell Ayala Jr., D.OCassidy07/30/2023 6:41 PM Dictation Location: [facility] Transcribed By: [facility] 07/30/23 1841 Dictated By: Terrell Ayala Jr, DO 07/30/23 1838 Signed By: 07/30/23 184 Normal [facility] No Panel InformationOrdered By: Sharla Montiel on 07-30-2023 Bedside Estimated GFR (eGFR) > 60.0 [facility] Ambulatory Visit Summaryon 0 07-02-2023 Ambulatory Visit [...] MAGANA, Sharla Layton Where: [facility] Insurance Correspondenceon 0 07-02-2023 Insurance Correspondence [id number] 5#1.00TIFF [facility] Lab Reportson 07-02-2023 Lab Reports [id number] #1.00TIFF [facility] Patient Educationon 07-02-19 Patient Education Oncology Prostate Cancer Screening Prostate [...] Where to find more information ? The [employer]: www.cancer.org ? [employer]: www.auanet.org Contact a health care [...] adds flu (more content not included)... Normal [facility] Urology Office/Clinic Noteon 07-02-2023 Urology Office/Clinic Note [...] 4.13 (Dutasteride 8.26) Last MRI 03/10/19 at [facility] - negative. TRUS/bx 2008 - negative. [...] or clots. Follow-up With When Contact Information SOFIYA MAGANA, Sharla Layton, URL [facility] [address], [place] [address] [id number] Additional Instructions: 6 mos w/ PSA Patient Education Prostate Cancer Screening I, Marilu Meng, personally scri (more content not included)... Normal [facility] Comment on above: Result Comment: Elec tronically Signed By: Sharla MONTIEL MD\.br\Date and Time Signed: 07/02/23 11:00 EDT\.br\Electronically Co-Signed By: Marilu Meng\.harry\Date and Time Co-Signed: 07/02/23 10:57 EDT US [...] by Owen Pena on 04/26/2023 4:07 PM [facility] US SCROTUMon 04-26-2023 US SCROTUM US [...] Owen Pena on 04/26/2023 11:02 AM Normal [facility] RAD - CT Reporton 01-26-2023 RAD - CT Report [id number] #1.00TIFF Normal [facility] RAD - CT Report [id number] #1.00TIFF Normal [facility] Ambulatory Visit Summaryon 1 Ambulatory Visit Summary LOKESH PONCE :1955 Visit Date:01/08/2023 Ambulatory Visit Instructions Your Diagnosis Gross hematuria BPH with urinary obstruction Kidney stone Elevated PSA Tests Performed Urnls Dip Stick Auto w/o Microscopy POC [address]1991 CT Abdomen/Pelvis w/o Contrast -- Results Pending [...] Sharla MONTIEL MD Where: [facility] Lab Reportson 01-08-2023 Lab Reports [id number] #1.00TIFF [facility] Patient Educationon 01-09-20 Patient Education Nephrology Dietary Guidelines to Help [...] Spinach (cooked), rhubarb, beets, sweet potatoes, and French chard. ? Peanuts. ? Potato chips, turks and caicos islander fries, and baked potatoes with skin on. ? Nuts and nut products. ? Chocolate. ? If you regularly take a diuretic medicine, make sure to eat at least 1 or 2 servings of fruits or vegetables that are high in potassium each day. These include: ? Avocado. ? Banana. ? [place], prune, carrot, or tomato juice. ? Baked [...] fish oil, or vitamin B6. ? Take teci-awr-vceoagv and prescription medicines only as told by your health care provider. These include supplements. What foods should I limit? Limit your in (more content not included)... Normal [facility] RAD - MISCon 01-08-2023 [facility] - MIS [id number] #1.00TIFF Normal [facility] Urology Office/Clinic Noteon 01-08-2023 Urology Office/Clinic Note [...] low urine volume. KUB done 04/19/22 at [facility] - right renal stone. No ureteral calcifications. [...] 5.20 & 16.9% Last MRI 03/10/19 at [facility] - negative. TRUS/bx several years ago - negative. Discussed PSA results with pt, slightly increased from previous level. Will continue to monitor. Follow-up With When Contact Information Sharla MONTIEL MD, RICHELLE In 6 months [facility] [address], [place] [address]- Additional Instructions: w/PSA Patient Education Dietary Guidelines to Help Prevent Kidney Stones I, Sierra Pemberton , personally scribed for Dr. Montiel on 01/08/2023 10:37:12. . Documentation recorded by the elveribSierra ruiz, accurately reflects the services(s) I performed and decisions made by me. Pro (more content not included)... Normal [facility] Comment on above: Result Comment: Elec tronically Signed By: Sharla MONTIEL MD\.br\Date and Time Signed: 01/08/23 10:40 EDT\.br\Electronically Co-Signed By: Sierra Pemberton\.br\Date and Time Co-Signed: 01/08/23 10:37 EDT Ambulatory Visit Summaryon 0 10-09-2022 Ambulatory Visit Summary LOKESH PONCE :1955 Visit Date:05/01/2022 Ambulatory Visit Instructions Your Diagnosis Kidney stone Gross hematuria BPH with urinary obstruction Elevated PSA Tests Performed Urnls Dip Stick Auto w/o Microscopy POC [address] CT Abdomen/Pelvis w/o Contrast -- Results Pending [...] Follow-Up Appointments Sunday 9:30 AM EDT With: SOFIYA MAGANA, Sharla Layton Where: [facility] Patient Educationon 10-10-19 Patient Education Urology Hematuria, Adult Hematuria is [...] these instructions at home: Medicines ? Take cxly-xfk-vfvjeqo and prescription medicines only as told by [...] the blood stops without treatment. ? Take wwzm-tna-xycemks and prescription medicines only as told by your health care provider. ? Drink enough fluid to keep your urine pale yellow. This information is not intended to replace advice given to you by your health care provider. Make sure you discuss any questions you have with your health care provider. Document Revised: 11/17/2020 Document Reviewed: 11/17/2020 [employer] Patient Education ? 2022 [employer]en [facility] Urology Office/Clinic Noteon 10-09-2022 Urology Office/Clinic Note [...] Rx card provided. Script sent to [facility] [place]. -Follow up in 3 months or sooner [...] low urine volume. KUB done 04/19/22 at [facility] - right renal stone. No ureteral calcifications. [...] 04/26/22 - 4.79 Last MRI 03/10/19 at [facility] - negative. TRUS/bx several years ago - negative. Follow-up With When Contact Information SOFIYA MAGANA, Sharla Layton, URL In 3 months [facility] [address], [place] [address] [phone] Additional Instruc (more content not included)... [facility] Comment on above: Result Comment: Elec tronically Signed By: Sharla MNOTIEL MD\.br\Date and Time Signed: 10/09/22 09:19 EDT\.br\Electronically Co-Signed By: Marilu Meng\.br\Date and Time Co-Signed: 10/09/22 09:15 EDT C Urineon 09-20-2022 Bacteria identified Cx Nom (U) Microbiology PROCEDURE: Urine Culture [R1] SOURCE: U Random BODY SITE: COLLECTED DATE/TIME: 09/18/2022 15:28 EDT RECEIVED DATE/TIME: 09/18/2022 19:46 EDT START DATE/TIME: 09/18/2022 19:46 EDT FREE TEXT SOURCE: SOFIYA MAGANA, Sharla Kwok MD FINAL REPORTS Final Report [] Verified Date/Time: 09/20/2022 10:17 EDT No growth at 2 days. Performing Locations R1: [facility], [address] [place] [address], [facility] , , [facility] Comment on above: Performed By: #### 2 [id number] ####[place] [address] Ambulatory Visit Summaryon 0 09-18-2022 Ambulatory Visit Summary LOKESH PONCE :1955 Visit Date:09/18/2022 Ambulatory Visit Instructions Your Diagnosis UTI symptoms Tests Performed Urnls Dip Stick Auto w/o Microscopy POC 39370 Your Care Team Attending Physician - Sharla [...] Sharla MONTIEL MD Where: [facility] Consent for Procedure/Surger yon 08-30-2022 Consent for Procedure/Surgery [id number]#1.00CD:127 [facility] Patient Educationon 08-30-19 23 Patient Education [...] including vitamins, herbs, eye drops, creams, and vrdd-udx-yfhayyf medicines. ? Any problems you or family [...] tells you to take them. ? Taking tmcf-fmx-hhfjals medicines, vitamins, herbs, and supplements. Surgery safety [...] health care (more content not included)... Normal [facility] Urology Office/Clinic Noteon 08-29-2022 Urology Office/Clinic Note [...] urine volume. Current KUB done 04/19/22 at [facility] shows right renal stone. No ureteral calcifications. [...] 06/03/21 - 5.03 Last MRI 03/10/19 at [facility] was negative. neg TRUS/bx several years ago Other obstructive and reflux uropathy (N13.8: Other obstructive and reflux uropathy) Follow-up With When Contact Information SOFIYA MAGANA, Sharla Layton, URL [facility] [address], [place] [address] Business (1) Additional Instructions: 6 month w/ [...] Hives) Soci (more content not included)... Normal [facility] Comment on above: Result Comment: Elec tronically [...] by: GIOVANNY ZAYAS Date: 2022-08-25 15:47 Normal [facility] Pathology Noteon 08-24-2022 Pathology Note [id number] #1.00CD:127 Normal [facility] Ambulatory Visit Summaryon 0 08-21-2022 Ambulatory Visit [...] MAGANA, Sharla Layton Where: [facility] Operative Reporton Operative Report [id number] #1.00CD:127 Normal [facility] ECG 12-Leadon 08-13-2022 ECG 12-Lead [id number] #1.00CD:127 Normal [facility] Lab Reportson 08-13-2022 Lab Reports [id number] #1.00CD:127 Normal [facility] PROF CHEM 8 (BAS METB)on Anion gap [Moles/Vol] 7.8 mmol/L Normal [facility] Comment on above: Performed By: #### B MP ####[facility] [address] [place] [address]Dr. Leeanna Carlson Calcium [Mass/Vol] 9.1 mg/dL Normal 8.5-10.1 [facility] Comment on above: Performed By: #### B MP ####[facility] [address] [place] [address]Dr. Leeanna Carlson Chloride [Moles/Vol] 105 mmol/L Normal 98-107 [facility] Comment on above: Performed By: #### B MP ####[facility] [address] [place] [address]Dr. Leeanna Carlson CO2 [Moles/Vol] 28.6 mmol/L Normal 21.0-32.0 [facility] Comment on above: Performed By: #### B MP ####[facility] [address] [place] [address]Dr. Leeanna Carlson Creatinine [Mass/Vol] 1.18 mg/dL Normal 0.70-1.30 [facility] Comment on above: Performed By: #### B MP ####[facility] [address] [place] [address]Dr. Leeanna Carlson EGFR-AF [place] >60 Normal >=60 [facility] Comment on above: Performed By: #### B MP ####[facility] [address] [place] [address]Dr. Leeanna Carlson EGFR-NON AF [place] >60 Normal >=60 [facility] Comment on above: Performed By: #### B MP ####[facility] [address] [place] [address]Dr. Leeanna Carlson Glucose [Mass/Vol] 96 mg/dL Normal 74-106 [facility] Comment on above: Performed By: #### B MP ####[facility] [address] [place], [place] [address]Dr. Leeanna Carlson Potassium [Moles/Vol] 4.4 mmol/L Normal 3.5-5.1 [facility] Comment on above: Performed By: #### B MP ####[facility] [address] [place], [place] [address]Dr. Leeanna Carlson Sodium [Moles/Vol] 137 mmol/L Normal 136-145 [facility] Comment on above: Performed By: #### B MP ####[facility] [address] [place], [place] [address]Dr. Tammieami Carlson Urea nitrogen [Mass/Vol] 17.0 mg/dL Normal 7.0-18.0 [facility] Comment on above: Performed By: #### B MP ####[facility] [address] [place], [place] [address]Dr. Tammieami Carlson Urea nitrogen/Creatinine [Mass ratio] 14.4 mg/mg Normal [facility] Comment on above: Performed By: #### B MP ####[facility] [address] [place], [place] [address]Dr. Tammieami Aldo PROTIMEon 08-09-2022 INR Coag (PPP) [Relative time] 1.01 {INR} Normal [facility] Comment on above: Performed By: #### P T, PTT ####[facility] [address] [place] [address]DrCassidy Carlson INR GUIDELINES SEE BELOW Normal [facility] Comment on above: Result Comment: AIRAM RED INR: 2.0 - 3.0 CONDITIONS NOT LISTED BELOW 2.5 - 3.5 FOR PROSTHETIC HEART VALVE REPLACEMENT 2.5 - 3.5 RECURRENT THROMBOSIS Performed By: #### P T, PTT ####[facility] [address] [place] [address]Dr. Leeanna Carlson PT Coag (PPP) [Time] 10.7 s Normal 9.0-11.6 [facility] Comment on above: Performed By: #### P T, PTT ####[facility] [address] [place] [address]Dr. Leeanna Carlson PTTon 08-09-2022 aPTT Coag (Bld) [Time] 29.2 s Normal 22.3-36.2 [place] Comment on above: Performed By: #### P T, PTT ####[facility] [address] [place] [address]Dr. Leeanna Carlson Consent for Procedure/Surger yon 08-03-2022 Consent for Procedure/Surgery [id number] #1.00CD:127 Normal [facility] CBC AUTO DIFFon 07-28-2022 BASO # 0.0 103/ul Normal 0.0-0.1 [facility] Comment on above: Performed By: #### C BC #### [facility] [address] [place] [address] Dr. Leeanna Carlson Basophils/100 WBC (Bld) 0.8 % Normal 0.2-2.0 [facility] Comment on above: Performed By: #### C BC #### [facility] [address] [place] [address] Dr. Leeanna Carlson EO # 0.0 103/ul Normal 0.0-0.7 [facility] Comment on above: Performed By: #### C BC #### [facility] [address] [place] [address] Dr. Leeanna Carlson Eosinophils/100 WBC (Bld) 0.6 % Critically low 0.9-7.0 [facility] Comment on above: Performed By: #### C BC #### [facility] [address] [place] [address] Dr. Leeanna Carlson Erythrocyte distribution width (RBC) [Ratio] 13.3 % Normal 11.0-15.0 [facility] Comment on above: Performed By: #### C BC #### [facility] [address] [place] [address] Dr. Leeanna Carlson Hematocrit (Bld) [Volume fraction] 46.5 % Normal 42.0-54.0 [facility] Comment on above: Performed By: #### C BC #### [facility] [address] [place] [address] Dr. Leeanna Carlson Hemoglobin (Bld) [Mass/Vol] 15.4 g/dL Normal 14.0-18.0 [facility] Comment on above: Performed By: #### C BC #### [facility] [address] [place] [address] Dr. Leeanna Carlson IG # 0.01 10e3/ul Normal 0.00-0.03 [facility] Comment on above: Performed By: #### C BC #### [facility] [address] [place] [address] Dr. Leeanna Carlson IG % 0.2 % Normal 0.0-0.5 [facility] Comment on above: Performed By: #### C BC #### [facility] [address] [place] [address] Dr. Leeanna Carlson LYMPH # 1.8 103/ul Normal 1.2-3.8 [facility] Comment on above: Performed By: #### C BC #### [facility] [address] [place] [address] Dr. Leeanna Carlson Lymphocytes/100 WBC (Bld) 35.0 % Normal 20.5-60.0 [facility] Comment on above: Performed By: #### C BC #### [facility] [address] [place] [address] Dr. Leeanna Carlson MANUAL DIFF REQ NO Normal [facility] Comment on above: Performed By: #### C BC #### [facility] [address] [place] [address] Dr. Leeanna Carlson MCH (RBC) [Entitic mass] 28.4 pg Normal 25.9-34.0 [facility] Comment on above: Performed By: #### C BC #### [facility] [address] [place] [address] Dr. Leeanna Carlson MCHC (RBC) [Mass/Vol] 33.1 g/dL Normal 29.9-35.2 [facility] Comment on above: Performed By: #### C BC #### [facility] [address] [place] [address] Dr. Leeanna Carlson MCV (RBC) [Entitic vol] 85.6 fL Normal 80.0-94.0 [facility] Comment on above: Performed By: #### C BC #### [facility] [address] [place] [address] Dr. Leeanna Carlson MONO # 0.6 103/ul Normal 0.3-0.8 [facility] Comment on above: Performed By: #### C BC #### [facility] [address] [place] [address] Dr. Leeanna Carlson Monocytes/100 WBC (Bld) 11.5 % Normal 1.7-12.0 [facility] Comment on above: Performed By: #### C BC #### [facility] [address] [place] [address] Dr. Leeanna Carlson NEUT # 2.7 103/ul Normal 1.4-6.5 [facility] Comment on above: Performed By: #### C BC #### [facility] [address] [place] [address] Dr. Leeanna Carlson Neutrophils/100 WBC (Bld) 51.9 % Normal 43.0-75.0 [facility] Comment on above: Performed By: #### C BC #### [facility] [address] [place], [place] [address] Dr. Leeanna Carlson Platelet mean volume (Bld) [Entitic vol] 9.9 fL Normal 9.5-13.5 [facility] Comment on above: Performed By: #### C BC #### [facility] [address] [place], [place] [address] Dr. Leeanna Carlson PLT 191 103/ul Normal 150-450 [facility] Comment on above: Performed By: #### C BC #### [facility] [address] [place] [address] [address] Leeanna Carlson RBC 5.43 106/ul Normal 4.70-6.10 [facility] Comment on above: Performed By: #### C BC #### [facility] [address] [address] [address] Leeanna Carlson WBC 5.1 103/ul Normal 4.0-11.0 [facility] Comment on above: Performed By: #### C BC #### [facility] [address] [address] ABD/PELVIS WO CONon [...] JOHANNA MARIE Date: 2022-07-28 10:52 Normal [facility] ER URINE PROFILEon 3 Bilirubin Ql (U) Negative Normal NEGATIVE [facility] Comment on above: Performed By: #### U MICRO, ERUR #### [facility] [address] [place] [address] Dr. Leeanna Carlson Clarity (U) CLOUDY Abnormal CLEAR [facility] Comment on above: Performed By: #### U MICRO, ERUR #### [facility] [address] [address] [address] Leeanna Carlson Color (U) BROWN Abnormal YELLOW [facility] Comment on above: Performed By: #### U MICRO, ERUR #### [facility] [address] [address] [address] Leeanna KEENE A micrscopic examination will be performed if indicated. Normal [facility] Comment on above: Performed By: #### U MICRO, ERUR #### [facility] [address] [address] [address] Leeanna Carlson Glucose Ql (U) Negative Normal NEGATIVE [facility] Comment on above: Performed By: #### U MICRO, ERUR #### [facility] [address] [address] [address] Leeanna Carlson Hemoglobin Ql (U) LARGE Abnormal NEGATIVE [facility] Comment on above: Performed By: #### U MICRO, ERUR #### [facility] [address] [place] [address] Dr. Leeanna Carlson Ketones Ql (U) Negative Normal NEGATIVE [facility] Comment on above: Performed By: #### U MICRO, ERUR #### [facility] [address] [place] [address] Dr. Leeanna Carlson LEUKOCYTES TRACE Abnormal NEGATIVE [facility] Comment on above: Performed By: #### U MICRO, ERUR #### [facility] [address] [place] [address] Dr. Leeanna Carlson Nitrite Ql (U) Negative Normal NEGATIVE [facility] Comment on above: Performed By: #### U MICRO, ERUR #### [facility] [address] [place] [address] Dr. Leeanna Carlson pH (U) 5.0 [pH] Normal 5-9 [facility] Comment on above: Performed By: #### U MICRO, ERUR #### [facility] [address] [place] [address] Dr. Leeanna Carlson Protein (U) [Mass/Vol] 30 mg/dL Abnormal NEGAT KIERSTEN/ TRACE [facility] Comment on above: Performed By: #### U MICRO, ERUR #### [facility] [address] [place] [address] Dr. Leeanna Carlson SPEC GRAVITY 1.020 Normal 1.005-<=1.025 [facility] Comment on above: Performed By: #### U MICRO, ERUR #### [facility] [address] [place] [address] Dr. Leeanna Carlson UR MICRO IND INDICATED Normal [facility] Comment on above: Performed By: #### U MICRO, ERUR #### [facility] [address] [place] [address] Dr. Leeanna Carlson Urobilinogen Qn (U) 1.0 {Marito'U}/dL Normal 0.2 - 1. 0 [facility] Comment on above: Performed By: #### U MICRO, ERUR #### [facility] [address] [place] [address] Dr. Leeanna Carlson URINE MICROSCOPIC ONLYon BACTERIA NONE SEEN Normal NONE SEEN [facility] Comment on above: Performed By: #### U MICRO, ERUR #### [facility] [address] [place] [address] Dr. Leeanna Carlson Bacteria identified Cx Nom (U) NOT INDICATED Normal [facility] Comment on above: Performed By: #### U MICRO, ERUR #### [facility] [address] [place] [address] [address] Leeanna Carlson CAST NONE SEEN Normal NONE SEEN [facility] Comment on above: Performed By: #### U MICRO, ERUR #### [facility] [address] [address] [address] Leeanna Carlson Crystals LM Nom (Urine sed) NONE SEEN Normal NONE SEEN [facility] Comment on above: Performed By: #### U MICRO, ERUR #### [facility] [address] [address] [address] Leeanna Carlson Epithelial cells LM Ql (Urine sed) RARE Normal NONE SEEN /RARE [facility] Comment on above: Performed By: #### U MICRO, ERUR #### [facility] [address] [place] [address] Dr. Leeanna Carlson MUCOUS NONE SEEN Normal NONE SEEN [facility] Comment on above: Performed By: #### U MICRO, ERUR #### [facility] [address] [place] [address] [address] Leeanna Carlson RBC (U) [#/Vol] /uL Abnormal 0-2 [facility] Comment on above: Performed By: #### U MICRO, ERUR #### [facility] [address] [place] [address] [address] Leeanna Carlson WBC 0-2 Abnormal NONE SEEN [facility] Comment on above: Performed By: #### U MICRO, ERUR #### [facility] [address] [place] [address] [address] Leeanna Carlson CULTURE URINEon 06-14-2022 CULTURE URINE Culture Observations: NO GROWTH. Normal [facility] Comment on above: Performed By: #### U RCX ####[facility] [address] [place] [address]Dr. Leeanna Carlson UA RANDOMon 06-14-2022 Bilirubin Ql (U) Negative Normal NEGATIVE [facility] Comment on above: Performed By: #### U A #### [facility] [address] [place] [address] Dr. Leeanna Carlson Clarity (U) CLEAR Normal CLEAR [facility] Comment on above: Performed By: #### U A #### [facility] [address] [place] [address] Dr. Leeanna Carlson Color (U) LT. YELLOW Normal YELLOW [facility] Comment on above: Performed By: #### U A #### [facility] [address] [place] [address] Dr. Leeanna Carlson Glucose Ql (U) Negative Normal NEGATIVE [facility] Comment on above: Performed By: #### U A #### [facility] [address] [place] [address] Dr. Leeanna Carlson Hemoglobin Ql (U) SMALL Abnormal NEGATIVE [facility] Comment on above: Performed By: #### U A #### [facility] [address] [place] [address] Dr. Leeanna Carlson Ketones Ql (U) Negative Normal NEGATIVE [facility] Comment on above: Performed By: #### U A #### [facility] [address] [place] [address] Dr. Leeanna Carlson LEUKOCYTES Negative Normal NEGATIVE [facility] Comment on above: Performed By: #### U A #### [facility] [address] [place] [address] Dr. Leeanna Carlson Nitrite Ql (U) Negative Normal NEGATIVE [facility] Comment on above: Performed By: #### U A #### [facility] [address] [place] [address] Dr. Leeanna Carlson pH (U) 6.0 [pH] Normal 5-9 [facility] Comment on above: Performed By: #### U A #### [facility] [address] [place] [address] Dr. Leeanna Carlson SPEC GRAVITY <=1.005 Abnormal 1.005-<=1.[address] [facility] Comment on above: Performed By: #### U A #### [facility] [address] [place] [address] Dr. Leeanna Carlson UA PROTEIN Negative Normal NEGATIVE/ TRACE [facility] Comment on above: Performed By: #### U A #### [facility] [address] [place], [place] [address] Dr. Leeanna Carlson Urobilinogen Qn (U) 0.2 {Marito'U}/dL Normal 0.2 - 1. 0 [facility] Comment on above: Performed By: #### U A #### [facility] [address] [place], [place] [address] Dr. Leeanna Carlson US KIDNEYSon 06-14-2022 US [...] by: ARTHUR ONTIVEROS Date: 2022-06-14 14:27 Normal [facility] XR KUB 1 VIEWon 06-14-2022 XR KUB [...] GIOVANNY ZAYAS Date: 2022-06-14 13:33 Normal [facility] Creatinine (Bld) [Mass/Vol]O rdered By: Dave Solorio on 04-27-2022 Creatinine [Mass/Vol] 1.2 mg/dL 0.6-1.3 [facility] Comment on above: ER/ESD physician is notified/shown all ISTAT results.Critical values may be confirmed by laboratory testing ifdeemed necessary by ER attending doctor. No Panel InformationOrdered By: Dave Solorio on 04-27-2022 POC Estimated GFR > 60 [facility] Comment on above: GFR estimated refere nce range: According to KDOQI guidelines, <60 ml/min/1.73m2 is sufficient to diagnose a patient with chronic kidney disease. POC Estimated GFR Non- Amer > 60 [facility] XR KUB 1 VIEWon 04-19-2022 XR [...] by: GIOVANNY ZAYAS Date: 2022-04-19 16:59 Normal [facility] XR KUB 1 VIEWon 10-06-2021 XR KUB [...] JOHANNA MARIE Date: 2021-10-06 16:08 Normal [facility] CBC AUTO DIFFon 06-29-2022 BASO # 0.0 103/ul Normal 0.0-0.1 [facility] Comment on above: Performed By: #### C BC ####[facility] [address] [place] [address]Dr. Leeanna Carlson Basophils/100 WBC (Bld) 0.8 % Normal 0.2-2.0 [facility] Comment on above: Performed By: #### C BC ####[facility] [address] [place], [place] [address]Dr. Leeanna Carlson EO # 0.1 103/ul Normal 0.0-0.7 [facility] Comment on above: Performed By: #### C BC ####[facility] [address] [place], [place] [address]Dr. Leeanna Carlson Eosinophils/100 WBC (Bld) 2.0 % Normal 0.9-7.0 [facility] Comment on above: Performed By: #### C BC ####[facility] [address] [place], [place] [address]Dr. Leeanna Carlson Erythrocyte distribution width (RBC) [Ratio] 13.2 % Normal 11.0-15.0 [facility] Comment on above: Performed By: #### C BC ####[facility] [address] [place], [place] [address]Dr. Leeanna Carlson Hematocrit (Bld) [Volume fraction] 47.8 % Normal 42.0-54.0 [facility] Comment on above: Performed By: #### C BC ####[facility] [address] [place], [place] [address]Dr. Leeanna Carlson Hemoglobin (Bld) [Mass/Vol] 15.8 g/dL Normal 14.0-18.0 [facility] Comment on above: Performed By: #### C BC ####[facility] [address] [place], [place] [address]Dr. Leeanna Carlson IG # 0.01 10e3/ul Normal 0.00-0.03 [facility] Comment on above: Performed By: #### C BC ####[facility] [address] [place], [place] [address]DrCassidy Carlson IG % 0.2 % Normal 0.0-0.5 [facility] Comment on above: Performed By: #### C BC ####[facility] [address] [place] [address]DrCassidy Carlson LYMPH # 1.4 103/ul Normal 1.2-3.8 [facility] Comment on above: Performed By: #### C BC ####[facility] [address] [place] [address]DrCassidy Carlson Lymphocytes/100 WBC (Bld) 29.1 % Normal 20.5-60.0 [facility] Comment on above: Performed By: #### C BC ####[facility] [address] [place], [place] [address]DrCassidy Carlson MANUAL DIFF REQ NO Normal [facility] Comment on above: Performed By: #### C BC ####[facility] [address] [place], [place] [address]DrCassidy Carlson MCH (RBC) [Entitic mass] 28.4 pg Normal 25.9-34.0 [facility] Comment on above: Performed By: #### C BC ####[facility] [address] [place], [place] [address]DrCassidy Carlson MCHC (RBC) [Mass/Vol] 33.1 g/dL Normal 29.9-35.2 [facility] Comment on above: Performed By: #### C BC ####[facility] [address] [place], [place] [address]DrCassidy Carlson MCV (RBC) [Entitic vol] 86.0 fL Normal 80.0-94.0 [facility] Comment on above: Performed By: #### C BC ####[facility] [address] [place], [place] [address]DrCassidy Carlson MONO # 0.5 103/ul Normal 0.3-0.8 [facility] Comment on above: Performed By: #### C BC ####[facility] [address] [place], [place] [address]DrCassidy Carlson Monocytes/100 WBC (Bld) 9.9 % Normal 1.7-12.0 [facility] Comment on above: Performed By: #### C BC ####[facility] [address] [place] [address]Dr. Tammieami Carlson NEUT # 2.9 103/ul Normal 1.4-6.5 [facility] Comment on above: Performed By: #### C BC ####[facility] [address] [place] [address]DrCassidy Carlson Neutrophils/100 WBC (Bld) 58.0 % Normal 43.0-75.0 [facility] Comment on above: Performed By: #### C BC ####[facility] [address] [place], [place] [address]DrCassidy Carlson Platelet mean volume (Bld) [Entitic vol] 10.3 fL Normal 9.5-13.5 [facility] Comment on above: Performed By: #### C BC ####[facility] [address] [place], [place] [address]Dr. Leeanna Carlson PLT 187 103/ul Normal 150-450 [facility] Comment on above: Performed By: #### C BC ####[facility] [address] [place], [place] [address]DrCassidy Carlson RBC 5.56 106/ul Normal 4.70-6.10 [facility] Comment on above: Performed By: #### C BC ####[facility] [address] [place], [place] [address]DrCassidy Carlson WBC 4.9 103/ul Normal 4.0-11.0 [facility] Comment on above: Performed By: #### C BC ####[facility] [address] [place], [place] [address]DrCassidy Carlson PROF CHEM 8 (BAS METB)on Anion gap [Moles/Vol] 8.9 mmol/L Normal [facility] Comment on above: Performed By: #### B MP ####[facility] [address] [place], [place] [address]DrCassidy Carlson Calcium [Mass/Vol] 9.1 mg/dL Normal 8.5-10.1 [facility] Comment on above: Performed By: #### B MP ####[facility] [address] [place] [address]Dr. Leeanna Carlson Chloride [Moles/Vol] 105 mmol/L Normal 98-107 [facility] Comment on above: Performed By: #### B MP ####[facility] [address] [address]Dr. Leeanna Carlson CO2 [Moles/Vol] 27.8 mmol/L Normal 21.0-32.0 [facility] Comment on above: Performed By: #### B MP ####[facility] [address] [place], [place] [address]Dr. Leeanna Carlson Creatinine [Mass/Vol] 1.18 mg/dL Normal 0.70-1.30 [facility] Comment on above: Performed By: #### B MP ####[facility] [address] [place], [place] [address]Dr. Leeanna Aldo EGFR-AF [place] >60 Normal >=60 [facility] Comment on above: Performed By: #### B MP ####[facility] [address] [place], [place] [address]Dr. Leeanna Aldo EGFR-NON AF [place] >60 Normal >=60 [facility] Comment on above: Performed By: #### B MP ####[facility] [address] [place], [place] [address]Dr. Leeanna Aldo Glucose [Mass/Vol] 110 mg/dL Critically high 74-106 [facility] Comment on above: Performed By: #### B MP ####[facility] [address] [place], [place] [address]Dr. Leeanna Aldo Potassium [Moles/Vol] 4.7 mmol/L Normal 3.5-5.1 [facility] Comment on above: Performed By: #### B MP ####[facility] [address] [place], [place] [address]Dr. Tammieami Aldo Sodium [Moles/Vol] 137 mmol/L Normal 136-145 [facility] Comment on above: Performed By: #### B MP ####[facility] [address] [place], [place] [address]HkDr. Leeanna Carlson Urea nitrogen [Mass/Vol] 22.0 mg/dL Critically high 7.0-18.0 [facility] Comment on above: Performed By: #### B MP ####[facility] [address] [place] [id number]. Leeanna Carlson Urea nitrogen/Creatinine [Mass ratio] 18.6 mg/mg Normal [facility] Comment on above: Performed By: #### B MP ####[facility] [address] [id number]. Leeanna Carlson PROTIMEon 09-28-2021 INR Coag (PPP) [Relative time] 0.98 {INR} Normal [facility] Comment on above: Performed By: #### P TT, PT #### [facility] [address] [place] [address] [address] Leeanna Carlson INR GUIDELINES SEE BELOW Normal [facility] Comment on above: Result Comment: AIRAM RED INR: 2.0 - 3.0 CONDITIONS NOT LISTED BELOW 2.5 - 3.5 FOR PROSTHETIC HEART VALVE REPLACEMENT 2.5 - 3.5 RECURRENT THROMBOSIS Performed By: #### P TT, PT #### [facility] [address] [place] [address] [address] Leeanna Carlson PT Coag (PPP) [Time] 10.6 s Normal 9.0-11.6 [facility] Comment on above: Performed By: #### P TT, PT #### [facility] [address] [address] [address] Leeanna Carlson PTTon 09-28-2021 aPTT Coag (Bld) [Time] 29.3 s Normal 22.3-36.2 [place] Comment on above: Performed By: #### P TT, PT #### [facility] [address] [address] [address] Leeanna Carlson Comprehensive Metabolic Pane puneet 06-03-2021 Albumin [Mass/Vol] 4.6 g/dL Normal 3.6-5.1 [facility] Comment on above: Performed By: #### V ITD, LIPD, CMP #### [facility] [address], [place] [id number] Albumin/Globulin [Mass ratio] 1.9 {ratio} Normal 1.0-2.5 [facility] Comment on above: Performed By: #### V ITD, LIPD, CMP #### [facility] [address], [place] [id number] ALP [Catalytic activity/Vol] 85 U/L Normal 40-129 [facility] Comment on above: Performed By: #### V ITD, LIPD, CMP #### [facility] [address], [place] [id number] ALT [Catalytic activity/Vol] 28 U/L Normal 9-46 [facility] Comment on above: Result Comment: 03/02 Female reference range changed. Performed By: #### V ITD, LIPD, CMP #### [facility] [address], [place] [id number] Anion gap [Moles/Vol] 18 mmol/L Normal 12-20 [facility] Comment on above: Result Comment: Effe ctive 04/07/2019 reference range changed. Performed By: #### V ITD, LIPD, CMP #### [facility] [address], [place] [id number] AST [Catalytic activity/Vol] 25 U/L Normal 10-40 [facility] Comment on above: Performed By: #### V ITD, LIPD, CMP #### [facility] [address], [place] [id number] Bilirubin [Mass/Vol] 0.65 mg/dL Normal 0.30-1.20 [facility] Comment on above: Performed By: #### V ITD, LIPD, CMP #### [facility] [address], [place] [id number] BUN/CREA 24 Ratio High 6-22 [facility] Comment on above: Performed By: #### V ITD, LIPD, CMP #### [facility] [address], [place] [id number] Calcium [Mass/Vol] 9.4 mg/dL Normal 8.6-10.2 Jp cheatham [place] [employer] Comment on above: Performed By: #### V ITD, LIPD, CMP #### [facility] [address], [place] [id number] Chloride [Moles/Vol] 105 mmol/L Normal 98-107 [facility] Comment on above: Performed By: #### V ITD, LIPD, CMP #### [facility] [address], [place] [id number] CO2 [Moles/Vol] 23 mmol/L Normal 20-31 [facility] Comment on above: Performed By: #### V ITD, LIPD, CMP #### [facility] [address], [place] [id number] Creatinine [Mass/Vol] 1.1 mg/dL Normal 0.7-1.4 [facility] Comment on above: Performed By: #### V ITD, LIPD, CMP #### [facility] [address], [place] [id number] eGFRAA 86 mL/min/1.73m2 Normal >60 [facility] Comment on above: Performed By: #### V ITD, LIPD, CMP #### [facility] [address], [place] [id number] eGFRNAA 71 mL/min/1.73m2 Normal >60 [facility] Comment on above: Performed By: #### V ITD, LIPD, CMP #### [facility] [address], [place] [id number] Globulin (S) [Mass/Vol] 2.4 g/dL Normal 1.9-3.7 [facility] Comment on above: Performed By: #### V ITD, LIPD, CMP #### [facility] [address], [place] [id number] Glucose [Mass/Vol] 97 mg/dL Normal 65-99 [facility]p [facility] [place] [employer] Comment on above: Result Comment: For FASTING Glucose --- ADA reference ranges: Normal 65-99 mg/dl Prediabetes 100-125 Diabetes >/= 126 Performed By: #### V ITD, LIPD, CMP #### [facility] [address] [place], [place] [id number] Potassium [Moles/Vol] 4.5 mmol/L Normal 3.5-5.5 [facility] Comment on above: Performed By: #### V ITD LIPD, CMP #### [facility] [address], [place] [id number] Protein [Mass/Vol] 7.0 g/dL Normal 6.1-8.1 [facility] [employer] Comment on above: Performed By: #### V ITD, LIPD, CMP #### [facility] [address], [place] [id number] Sodium [Moles/Vol] 141 mmol/L Normal 135-146 [facility] [employer] Comment on above: Performed By: #### V CORINE LIPD, CMP #### [facility] [address], [place] [id number] Urea nitrogen [Mass/Vol] 26 mg/dL High 7-25 [facility] [employer] Comment on above: Performed By: #### V CORINE LIPD, CMP #### [facility] [address], [place] [id number] Hemoglobin A1Con 06-03-2021 EAG 125.50 Normal [facility] Comment on above: Performed By: #### A 1C #### [facility] [address], [place] [id number] HbA1c (Bld) [Mass fraction] 6.0 % Normal 4.0-6.0 [facility] [employer] Comment on above: Performed By: #### A 1C #### [facility] [address], [place] [id number] Lipid Panelon 06-03-2021 Cholesterol [Mass/Vol] 232 mg/dL High 125-200 [facility] on above: Result Comment: Low risk < 200mg/dL Borderline risk 201-239 mg/dl High risk > or equal to 240 Performed By: #### V ITD, LIPD, CMP #### [facility] [address], [place] [id number] Cholesterol in HDL [Mass/Vol] 68 mg/dL Normal >40 [facility] [employer] Comment on above: Result Comment: High Cardiovascular Risk HDL <40 mg/dL Low Cardiovascular Risk HDL > or equal to 60 mg/dl Performed By: #### V ITD, LIPD, CMP #### [facility] [address], [place] [id number] Cholesterol in LDL [Mass/Vol] 153 mg/dL Normal [facility] Comment on above: Result Comment: LDL ATP III CLASSIFICATION LDL less than 100 mg/dl Optimal LDL 100-129 mg/dl Near or above optimal LDL 130-159 Borderline high LDL 160-189 High LDL greater than 189 mg/dl Very High Performed By: #### V ITD, LIPD, CMP #### [facility] [address], [place] [id number] Cholesterol in VLDL [Mass/Vol] 11 mg/dL Normal [facility] Comment on above: Performed By: #### V ITD, LIPD, CMP #### [facility] [address], [place] [id number] Cholesterol.total/Chol esterol in HDL [Mass ratio] 3 {ratio} Normal [facility] Comment on above: Performed By: #### V ITD, LIPD, CMP #### [facility] [address], [place] [id number] Triglyceride [Mass/Vol] 55 mg/dL Normal 30-150 [facility] [employer] Comment on above: Result Comment: TRIG ATPIII CLASSIFICATIONS TRIG less than 150 mg/dl Normal TRIG 150-199 mg/dl Borderline High TRIG 200-500 mg/dl High TRIG greather than 500 mg/dl Very High Performed By: #### V ITD, LIPD, CMP #### [facility] [address], [place] [id number] Prostatic Specific Antigen, Totalon 06-03-2021 TPSA 5.030 ng/mL High <4.000 [facility] Comment on above: Result Comment: PSA Test Method: ECLIA/Maira e 601 Performed By: #### P SA #### [facility] [address], [place] [id number] Vitamin D 25-OHon 06-03-2021 VIT D 25 OH 57 ng/ml Normal >29 [facility] [employer] Comment on above: Result Comment: Amanda min D Status Deficiency <20 ng/mL Insufficiency 20-29 ng/mL Optimal 30-100 ng/mL Possible Toxicity >=150 ng/mL Performed By: #### V ITD, LIPD, CMP #### [facility] [address], [place] [id number] MRI PROSTATE WO/W IVCONon MRI PROSTATE WO/W [...] prostate and pelvis performed on a 3T (Naviscan) scanner utilizing phase pelvic coil. Sequences obtained: Multiplanar T2-WI with small uvvrr-er-wiis; Axial diffusion weighted images with multiple B-values and creation of ADC-maps; Dynamic contrast enhanced T1-weighted images through the prostate were also obtained before, during and after the administration of intravenous gadolinium. Prostate dimensions and volume were obtained using a semi-automated software (Gogoyoko). CONTRAST: IV: 17 cc of (Dotarem). RESULT: [...] of suspicion for clinically significant prostate cancer (Yeni score 3 + 4 or higher). PI-RADS v2.1 assessment categories: PI-RADS 1: Clinically significant cancer is highly unlikely PI-RADS 2: Clinically significant cancer is unlikely PI-RADS 3: Clinically significant cancer is equivocal PI-RADS 4: Clinically significant cancer is likely PI-RADS 5: Clinically significant cancer is highly likely (V.05.2018) Forensic Chemist: GEOFF Transcribe Date/Time: Mar 10 2019 1:33P Dictated by : DAVE JONES MD This examination was interpreted and the report reviewed and electronically signed by: DAVE JONES MD on Mar 10 2019 2:15PM EST [id number] Normal [facility] PROGRESSon 03-10-2019 PROGRESS HNO ID: [id number] Author: Hallie Manning) QUIN Saavedra Service: Radiology [...] March 10, 2019 TIME: 12:15 PM Normal [facility] PROGRESS HNO ID: [id number] Author: Rosina Ferrari (Tech) Service: Radiology Author Type: Litigation Claim Representative Type: Progress Notes Filed: 03/10/2019 12:54 PM [...] Ferrari March 10, 2019 12:54 PM Normal [facility] Vital Signs Date Time Vital Sign Value Performing Clinician Jesse cooper 07-02-2023 09:42-0400 Blood Pressure Location Sharla MONTIEL [facility] 07-02-2023 09:42-0400 Body temperature 98.6 [degF] Sharla MONTIEL [facility] 07-02-2023 09:42-0400 Diastolic blood pressure 84 mm[Hg] Sharla MONTIEL [facility] 07-02-2023 09:42-0400 Heart rate 75 /min Sharla MONTIEL [facility] 07-02-2023 09:42-0400 Respiratory rate 17 /min Sharla MONTIEL [facility] 07-02-2023 09:42-0400 Systolic blood pressure 137 mm[Hg] Sharla MONTIEL [facility] 05-23-2023 13:45-0500 Body height 177.8 cm Jeana Parra DO Work Phone: [employer] [facility] 05-23-2023 13:45-0500 Body mass index (BMI) [Ratio] 28.5 kg/m2 [facility] DO [facility] 05-23-2023 13:45-0500 Body weight 90.08 kg Jeana Parra DO [facility] 05-23-2023 13:45-0500 Diastolic blood pressure 85 mm[Hg] Jeana Parra DO Work Phone: [facility] [employer] [facility] 05-23-2023 13:45-0500 Heart rate 63 /min Jeana Parra DO Work Phone: [facility] 05-23-2023 13:45-0500 Systolic blood pressure 134 mm[Hg] Jeana Parra DO Work Phone: [facility] 04-24-2023 13:03-0500 Body mass index (BMI) [Ratio] 29.1 kg/m2 Keerthi Gill MD Work Phone: [facility] 04-24-2023 13:03-0500 Body temperature 97.7 [degF] Keerthi Gill MD Work Phone: [facility] 04-24-2023 13:03-0500 Body weight 91.99 kg Keerthi Gill MD Work Phone: [facility] 04-24-2023 13:03-0500 Diastolic blood pressure 78 mm[Hg] Keerthi Gill MD Work Phone: [facility] 04-24-2023 13:03-0500 Heart rate 71 /min Keerthi Gill MD Work Phone: [facility] 04-24-2023 13:03-0500 SaO2% (BldA) [Mass fraction] 97 % Keerthi Gill MD Work Phone: [facility] 04-24-2023 13:03-0500 Systolic blood pressure 134 mm[Hg] Keerthi Gill MD Work Phone: [facility] 10-09-2022 08:31-0400 Blood Pressure Location Sharla MONTIEL [facility] 10-09-2022 08:31-0400 Diastolic blood pressure 74 mm[Hg] Sharla MONTIEL [facility] 10-09-2022 08:31-0400 Heart rate 80 /min Sharla MONTIEL [facility] 10-09-2022 08:31-0400 Respiratory rate 16 /min Sharla MONTIEL [facility] 10-09-2022 08:31-0400 Systolic blood pressure 130 mm[Hg] Sharla MONTIEL [facility] 05-01-2022 09:15-0500 Blood Pressure Location Sharla MONTIEL [facility] 05-01-2022 09:15-0500 Diastolic blood pressure 84 mm[Hg] Sharla MONTIEL [facility] 05-01-2022 09:15-0500 Heart rate 75 /min Sharla MONTIEL [facility] 05-01-2022 09:15-0500 Respiratory rate 16 /min Sharla MONTIEL [facility] 05-01-2022 09:15-0500 Systolic blood pressure 129 mm[Hg] Sharla MONTIEL [facility] 04-27-2022 07:35-0500 Body height 177.8 cm DO Monica Cori Work Phone: [facility] 04-27-2022 07:35-0500 Body weight 88.45 kg DO Monica Cori Work Phone: [facility] 04-19-2022 13:20-0500 Blood Pressure Location DONALD BHAGAT [facility] 04-19-2022 13:20-0500 Diastolic blood pressure 74 mm[Hg] DONALD LEOLA [facility] 04-19-2022 13:20-0500 Heart rate 72 /min DONALD LEOLA [facility] 04-19-2022 13:20-0500 Respiratory rate 16 /min DONALD LEOLA [facility] 04-19-2022 13:20-0500 Systolic blood pressure 126 mm[Hg] DONALD LEOLA [facility] 10-28-2021 10:27-0400 Blood Pressure Location Sharla MONTIEL [facility] 10-28-2021 10:27-0400 Diastolic blood pressure 81 mm[Hg] Sharla MONTIEL [facility] 10-28-2021 10:27-0400 Heart rate 54 /min Sharla MONTIEL [facility] 10-28-2021 10:27-0400 Respiratory rate 16 /min Sharla MONTIEL [facility] 10-28-2021 10:27-0400 Systolic blood pressure 134 mm[Hg] Sharla MONTIEL [facility] 08-17-2021 10:03-0400 Blood Pressure Location Sharla MONTIEL [facility] 08-17-2021 10:03-0400 Diastolic blood pressure 87 mm[Hg] Sharla MONTIEL [facility] 08-17-2021 10:03-0400 Heart rate 58 /min Sharla MONTIEL [facility] 08-17-2021 10:03-0400 Systolic blood pressure 134 mm[Hg] Sharla MONTIEL [facility] Encounters Encounter Date Encounter Type Care Provider Facility Start: 01-07-2024 ambulatory [facility] Facility:E Yossi Monticello Start: 07-31-2023 End: 07-31-2023 ambulatory [facility] Start: 07-30-2023 End: 07-30-2023 ambulatory NON STAFF Facility:[facility] Start: 07-30-2023 End: 07-30-2023 ambulatory NON STAFF [facility] Work Phone: Start: 07-30-2023 End: 07-30-2023 Patient encounter procedure MD Sharla Montiel Work Phone: [facility] [place] Work Phone: Start: 07-02-2023 End: 07-03-2023 [facility] Start: 07-02-2023 End: 07-02-2023 Patient encounter procedure Sharla MONTIEL [facility] Start: 05-23-2023 End: 05-23-2023 ambulatory JEANA PARRA [facility] Start: 05-23-2023 End: 05-23-2023 Office outpatient visit 15 minutes Jeana Parra DO Work Phone: [facility] Comment on above: Acute epididymitis ( Primary Dx); Non-recurrent unilateral inguinal hernia without obstruction or gangrene; Epididymitis Start: 04-26-2023 End: 04-27-2023 ambulatory [facility] Start: 04-24-2023 End: 04-24-2023 ambulatory [facility] Start: 04-24-2023 End: 04-24-2023 Office outpatient visit 25 minutes Keerthi Gill MD Work Phone: [facility] Comment on above: Non-recurrent unilat eral inguinal hernia without obstruction or gangrene (Primary Dx); Flank pain Start: 04-06-2023 End: 04-06-2023 ambulatory BRITT Gooden AMY Not Available Start: 04-04-2023 ambulatory Sarah Stone CMA [facility] Quality - Care Coordination Team Start: 04-04-2023 Coordination of care plan Sarah ventura CMA [facility] Quality - Care Coordination Team Start: 03-22-2023 End: 03-22-2023 ambulatory [facility] Start: 01-08-2023 End: 01-09-2023 ambulatory MONICA CORI Facility:[facility] Start: 10-09-2022 End: 10-10-2022 ambulatory Sharla MONTIEL Facility:[facility] Start: 10-09-2022 End: 10-09-2022 Patient encounter procedure Sharla MONTIEL [facility] Start: 09-18-2022 End: 09-19-2022 ambulatory MONICA CORI [facility] Start: 09-18-2022 End: 09-19-2022 ambulatory MONICA CORI Facility:[facility] Start: 09-18-2022 End: 09-18-2022 Patient encounter procedure Sharla MONTIEL [facility] Start: 08-29-2022 End: 08-30-2022 ambulatory MONICA CORI Facility:[facility] Start: 08-29-2022 End: 08-29-2022 Patient encounter procedure Sharla MONTIEL [facility] Start: 08-25-2022 End: 08-25-[address] DOCTOR HALEY Facility:[facility] Start: 08-21-2022 End: 08-22-2022 ambulatory MONICA CORI Facility:[facility] Start: 08-17-2022 End: 08-18-[address] DOCTOR HALEY Facility:[facility] Start: 08-12-2022 Encounter for preprocedural cardiovascular examination DR SHARLA MONTIEL . [facility] Start: 08-12-2022 Encounter for preprocedural laboratory examination DR SHARLA MONTIEL . [facility] Start: 08-09-2022 End: 08-10-[address] SHARLA MONTIEL . Facility:[facility] Start: 08-09-2022 End: 08-10-2022 Encounter for preprocedural cardiovascular examination DR SHARLA MONTIEL . Facility:[facility] Start: 07-28-2022 End: 07-28-[address] DOCTOR HALEY Facility:[facility] Start: 06-14-2022 End: 06-15-[address] GIOVANNY ZAYAS Facility:[facility] Start: 06-14-2022 End: 06-14-2022 Patient encounter procedure DONALD BHAGAT [facility] Start: 05-01-2022 End: 05-01-2022 Patient encounter procedure [facility]TIEL [facility] Start: 04-27-2022 End: 04-27-2022 ambulatory DO Monica G Cori Work Phone: [facility] Work Phone: Start: 04-27-2022 End: 04-27-2022 Patient encounter procedure DO Monica Cori Work Phone: [facility] [place] Work Phone: Start: 04-19-2022 End: 04-20-[address] GIOVANNY ZAYAS Facility:[facility] Start: 04-19-2022 End: 04-19-2022 Patient encounter procedure DONALD BHAGAT [facility] Start: 10-28-2021 End: 10-28-2021 Lab Drop off Sharla MONTIEL [facility] Start: 10-28-2021 End: 10-28-2021 Patient encounter procedure Sharla MONTIEL [facility] Start: 10-06-2021 End: 10-06-[address] SHARLA MONTIEL . Facility:[facility] Start: 09-28-2021 End: 09-29-[address] SHARLA MONTIEL . Facility:[facility] Start: 08-17-2021 End: 08-17-2021 Patient encounter procedure Sharla MONTIEL [facility] Procedures Date Procedure Procedure Detail Performing Clinician Start: 07-30-2023 MR prostate wo/w vianney Montiel Work Phone: Start: 03-22-2023 Adult depression scr eening assessment Sarah Stone [employer] Start: 11-27-2022 Colonoscopy Sarah ventura [employer] Start: 08-29-2022 Cystoscopic removal of ureteric stent Sharla MONTIEL Start: 08-17-2022 Transurethral prostatectomy Sharla MONTIEL Start: 04-27-2022 MRI of head DO Monica K eefe Work Phone: Start: 03-12-2020 Cystoscopy Sharla FERRELL Start: 08-31-2016 Transurethral prostatectomy Sharla MONTIEL Start: 07-04-2016 Cystoscopy Sharla FERRELL Start: 09-30-2014 Cystoscopy Sharla FERRELL Start: 04-21-2010 Transurethral prostatectomy Sharla MONTIEL Start: 02-04-2010 Urodynamic studies Patr kelli MONTIEL Start: 07-31-2008 Transrectal biopsy o f prostate using ultrasound guidance Sharla MONTIEL Start: 07-31-2005 Cystoscopy Sharla FERRELL Appendectomy Sharla MONTIEL Tonsillectomy Sharla MONTIEL Plan of Treatment Date Care Activity Detail Author Start: 11-27-2032 Screening for malign ant neoplasm of colon Colonoscopy [facility] Start: 06-27-2024 DTaP,Tdap and Td Vac cines (2 - Td or Tdap) DTaP,Tdap and Td Vaccines (2 - Td or Tdap) [facility] Start: 05-23-2024 Adult BMI Screening Adult BMI Screen ing [facility] Start: 05-23-2024 Tobacco Screening Tobacco Screening [facility] Start: 04-24-2024 Adult BMI Screening Adult BMI Screen ing [facility] Start: 04-24-2024 Tobacco Screening Tobacco Screening [facility] Start: 04-04-2024 Fall Risk Screening Fall Risk Screen ing [facility] Start: 03-22-2024 Adult BMI Screening Adult BMI Screen ing [facility] Start: 03-22-2024 Depression Screening Depression Scre ening [facility] Start: 03-22-2024 Fall Risk Screening Fall Risk Screen ing [facility] Start: 03-22-2024 Tobacco Screening Tobacco Screening [facility] Start: 09-25-2023 End: 09-25-2023 Patient encounter procedure 09/25/2023 10:15 AM EDT Office Visit [facility] [address] [place] [phone] Keerthi Gill MD [address] [place], [place] [id number] [facility] Start: 05-02-2023 End: 05-02-2023 Patient encounter procedure 05/02/2023 9:15 AM EST Office Visit [facility] [address] [place] [phone] Jeana Parra DO [address] [place] [address] [facility] Start: 04-26-2023 End: 04-26-2023 Patient encounter procedure [facility] Start: 04-24-2023 End: 04-24-2024 US Retroperitoneum Ultrasound retroperitoneal complete Imaging Routine Flank pain Expected: 04/24/2023, Expires: 04/24/2024 [facility] Comment on above: Expected: 04/24/2023 , Expires: 04/24/2024 Start: 04-24-2023 End: 04-24-2024 US Scrotum and testicle Ultrasound scrotum Imaging Routine Non-recurrent unilateral inguinal hernia without obstruction or gangrene Expected: 04/24/2023, Expires: 04/24/2024 [facility] Work Phone: Comment on above: Expected: 04/24/2023 , Expires: 04/24/2024 Start: 12-01-2022 COVID-19 Vaccine ( season) COVID-19 Vaccine ( season) [facility] Start: 12-01-2022 Influenza vaccination Influenza Vacc ine [facility] Start: 09-23-2007 Administration of varicella zoster vaccine Zoster (Shingles) Vaccine (1 of 2) [facility] Start: 09-23-1975 Adult BMI Follow Up Plan Adult BMI F ollow Up Plan [facility] Start: 1955 Medicare Annual Well ness Visit Medicare Annual Wellness Visit [place] Immunizations Immunization Date Immunization Notes Care Provider Brittnee agustin 03-03-2022 SARS-CoV-2 (COVID-19 ) [id number] Sharla MONTIEL [facility] 08-20-2021 SARS-CoV-2 (COVID-19 ) mRNA-1273 vaccine Sharla MONTIEL [facility] 03-02-2021 SARS-CoV-2 (COVID-19 ) mRNA-1273 vaccine Sharla MONTIEL [facility] 02-20-2021 SARS-CoV-2 (COVID-19 ) mRNA-1273 vaccine Sharla MONTIEL [facility] 01-23-2021 SARS-CoV-2 (COVID-19 ) mRNA-1273 vaccine Sharla MONTIEL [facility] 06-27-2014 tetanus toxoid, redu juventino diphtheria toxoid, and acellular pertussis vaccine, adsorbed Sharla MONTIEL [facility] Payers Date Payer Category Payer Self-pay [id number] 2023 Medicare [id number] 2014 Unknown BCBS [place] [employer] HMO/PPO/TRUST [id number] 2014-Present [phone] [place] [address] [id number] 1959 Unknown [id number] 1957 Unknown [id number] 2.16.840.1.011611.3.579.2.593 1957 Unknown [id number] 2.16.840.1.342205.3.579.2.593 1957 Unknown [id number] 2.16.840.1.884585.3.579.2.593 1957 Unknown [id number] 2.16.840.1.254817.3.579.2.593 1957 Unknown [id number] 2.16.840.1.433329.3.579.2.593 1957 Unknown [id number] 2.16.840.1.677397.3.579.2.593 1957 Unknown [id number] 2.16.840.1.287539.3.579.2.593 1957 Unknown [id number] 2.16.840.1.995684.3.579.2.593 1957 Unknown [id number] 2.16.840.1.346764.3.579.2.125 9 1957 Unknown [id number] 2.16.840.1.601172.3.579.2.128 6 1957 Unknown [id number] 2.16.840.1.315255.3.579.2.128 6 1957 Unknown [id number] 2.16.840.1.560082.3.579.2.128 6 1957 Unknown [id number] 2.16.840.1.939131.3.579.2.128 6 1957 Unknown [id number] 2.16.840.1.121962.3.579.2.128 6 1957 Unknown [id number] 2.16.840.1.657933.3.579.2.128 6 1957 Unknown [id number] 2.16.840.1.030567.3.579.2.727 1957 Unknown [id number] 2.16.840.1.781458.3.579.2.727 1957 Unknown [id number] 2.16.840.1.380105.3.579.2.727 1957 Unknown [id number] 2.16.840.1.533422.3.579.2.727 1957 Unknown [id number] 2.16.840.1.443389.3.579.2.727 1957 Unknown [id number] 2.16.840.1.348164.3.579.2.727 1957 Unknown [id number] 2.16.840.1.739114.3.579.2.727 1957 Unknown [id number] 2.16.840.1.790507.3.579.2.727 1957 Unknown [id number] 2.16.840.1.653293.3.579.2.727 Medicare Medicare-OP No Part B [id number] Unknown [id number] 2.16.840.1.177303.3.579.2.531 Social History Date Type Detail Facility Start: 06-13-2018 End: 08-17-2021 Tobacco smoking status Never smoked tobacco (finding) [facility] [employer] Start: 04-19-2022 Tobacco smoking status Never [facility] [employer] Start: 04-23-2020 End: 03-22-2023 Sex Assigned At Male [facility] Start: 1955 Sex Assigned At Male F [facility] Start: 07-17-2022 Tobacco use and exposure Smokeless tobacco non-user [facility] [employer] [facility] Start: 03-22-2023 End: 05-23-2023 Alcohol intake Lifetime non-drinker (finding) [facility] [employer] [facility] Start: 04-23-2020 End: 03-22-2023 History of Social function [facility] [employer] [facility] Start: 1955 [facility] [employer] [facility] Functional Status Date Assessment Result Facility 07-02-2023 Functional Status N/A [facility] 10-09-2022 Functional Status N/A [facility] 05-01-2022 Functional Status N/A [facility] 04-19-2022 Functional Status N/A [facility] 10-28-2021 Functional Status N/A [facility] Clinical Notes 08-16-2021 to 07-02-2023 Jeana Parra [...] treatment? Where to find more information [employer]: www.cancer.org [employer] Association: www.auanet.org Contact a health care [...] provider. Document Revised: 09/12/2021 Document Reviewed: 09/12/2021 [employer] Patient Education 2022 [employer]. Follow Up Care 01/08/2023 10:36:36 With:SOFIYA MAGANA, Sharla Layton, URL Address: [facility] [address] [place] [phone] When: Unknown Comments:6 mos w/ PSA [facility] [place] 05-23-2023 History of Present illness Narrative Images from the original note were not included. [facility] [address] [facility] [id number] CONSULT NOTE Zander Ponce 67 y.o. CHIEF COMPLAINT Chief Complaint Patient presents with Hernia Unilateral inguinal hernia, referred by Dr. Gill Zander Ponce is a 67-year-old male who presents [...] and does not rest. 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 He is very [...] 11/27/2022 Performed by Jeana Parra DO at [facility] COLONOSCOPY N/A 01/07/2018 Performed by Jeana Parra DO at [facility] FINGER SURGERY Left LEFT THUMB TONSILLECTOMY TRANSURETHRAL [...] support 24 hours a day or the Sampson fitting underwear he has and if not [...] patient/family/caregiver Referring and communicating with other health acute care physician No primary diagnosis found. Jeana Parra DO This note was created with the assistance of a speech recognition program. While intending to generate a timely document that accurately reflects the content of the visit, no guarantee can be provided that every grammatical or spelling mistake has been or will be identified or corrected. Thank you for your understanding. [facility] History of Present illness Narrative Images from the original note were not included. [address] [place] [id number] Patient: Zander Ponce Date of : 1955 [...] or gangrene - Ultrasound scrotum; Future - [facility] [place]; Future 67-year-old gentleman who has recently had a colonoscopy completed by Dr. Potts. Will refer to Dr. Parra consideration for surgical intervention. KEERTHI GILL MD Family Medicine Physician [facility] Family Medicine / [facility] 04/24/23 This note was completed with voice recognition software. The document was reviewed for errors however some may still be present. Please do not hesitate to contact/Epic ms the author to verify any questions/concerns. documented in this encounter [facility] 04-04-2023 History of Present illness Narrative Date of Call: April 04, 2023 Date of Positive Fall Risk Screenin03/22/2023 PT Referral Placed by PCP: No Result of Call: Answered Patient consent to enroll in Program: No Status of PT Referral: Patient declined Goals: Resources Provided: Additional Comments: Patient completed fall risk screening but declines program participation. documented in this encounter [facility] 10-09-2022 Hospital Discharge instructions Patient Education 10/09/2022 [...] Follow these instructions at home: Medicines Take fdlf-myt-jtecwih and prescription medicines only as told by [...] or the blood stops without treatment. Take envz-vtw-kldobyn and prescription medicines only as told by your health care provider. Drink enough fluid to keep your urine pale yellow. This information is not intended to replace advice given to you by your health care provider. Make sure you discuss any questions you have with your health care provider. Document Revised: 11/17/2020 Document Reviewed: 11/17/2020 [employer] Patient Education 2022 [employer]. Follow Up Care 10/02/2022 10:55:28 With:SOFIYA MAGANA, Sharla Layton, URL Address: [facility] [address], [place] [phone] When:Within 3 Month(s) [facility] 08-29-2022 Hospital Discharge instructions Patient Education 08/29/2022 [...] including vitamins, herbs, eye drops, creams, and mahj-rzd-ixkdyfn medicines. Any problems you or family members [...] provider tells you to take them. Taking zxzv-osj-cykasqh medicines, vitamins, herbs, and supplements. Surgery safety [...] provider. Document Revised: 12/13/2021 Document Reviewed: 12/13/2021 [employer] Patient Education 2022 [employer]. Follow Up Care 08/24/2022 09:38:00 With:SOFIYA MAGANA, Sharla Layton, URL Address: [facility] [address], [place] [address]- Business (1) When: Unknown [facility] 05-01-2022 Hospital Discharge instructions Patient Education [...] include: ?Spinach. ?Rhubarb. ?Beets. ?Potato chips and turks and caicos islander fries. ?Nuts. If you regularly take a diuretic medicine, make sure to eat at least 1 2 fruits or vegetables high in potassium each day. These include: ?Avocado. ?Banana. ?[place], prune, carrot, or tomato juice. ?Baked potato. [...] Casseroles. Pizza. Lasagna. Frozen meals. Potato chips. Sami fries. Summary You can reduce your risk [...] 07/14/2011 Document Revised: 07/09/2019 Document Reviewed: 02/27/2017 [employer] Patient Education 2019 [employer]MAX. Follow Up Care 10/28/2021 11:17:16 With:SOFIYA MAGANA, Sharla Layton, URL Address: [facility] [address] [place] [address]- When: Unknown [facility] Hospital Discharge instructions Patient Education 04/19/2022 13:43:01 Kidney Stones, Eomr-fn-Kfhr Kidney Stones Kidney stones are rock-like masses [...] Follow these instructions at home: Medicines Take ljwp-vlj-rxnvgfp and prescription medicines only as told by [...] Document Reviewed: 08/05/2019 Elsevier Patient Education 2019 VectorMAX. Follow Up Care 04/17/2022 09:12:19 With:SOFIYA MAGANA, Sharla Layton, URL Address: [address] [place] [address] [place] [address]- When: Unknown [facility] 10-28-2021 Hospital Discharge instructions Patient Education 10/28/2021 [...] one of these risk factors: ?Being of -Vietnamese descent. ?Having a family history of prostate [...] you: Are older than age 55. Are -Vietnamese. Have a father, brother, or uncle who [...] 12/28/2017 Document Revised: 03/01/2018 Document Reviewed: 12/28/2017 [employer] Patient Education 2020 [employer]. Follow Up Care 08/17/2021 11:01:21 With:SOFIYA MAGANA, Sharla Layton, URL Address: [facility] [address], [place] [phone] When:Within 6 Month(s) Comments:w/ PSA and KUB [facility] 08-16-2021 Hospital Discharge instructions Patient Education 08/16/2021 [...] one of these risk factors: ?Being of -Vietnamese descent. ?Having a family history of prostate [...] you: Are older than age 55. Are -Vietnamese. Have a father, brother, or uncle who [...] 12/28/2017 Document Revised: 03/01/2018 Document Reviewed: 12/28/2017 [employer] Patient Education 2020 [employer]. Follow Up Care 06/27/2021 09:31:40 With:Sharla MONTIEL MD, URL Address: [facility] [address], [place] [address]- When:10/17/2021 [facility] Evaluation + Plan note Future Appointments Appointment Date:10/28/2021 09:45:00 AM Scheduled Provider:Sharla MONTIEL MD Location:[facility] Appointment Type:URO Office Visit Diagnostic Tests PendingPSA Total 08/17/21 [facility] Evaluation + Plan note Future Appointments Appointment Date:05/01/2022 09:15:00 AM Scheduled Provider:Sharla [facility]TIEL [facility] App[facility] Type:URO Office Visit Diagnostic Tests PendingPSA Total 10/28/21 [facility] Evaluation + Plan note Future Appointments Appointment Date:05/01/2022 09:15:00 AM Scheduled Provider:Sharla MONTIEL MD Location:[facility] Appointment Type:URO Office Visit Diagnostic Tests PendingCalculi Analysis Urinary 10/28/21 [facility] Evaluation + Plan note Future Appointments Appointment Date:05/01/2022 09:15:00 AM Scheduled Provider:Sharla MONTIEL MD Location:[facility] Appointment Type:URO Office Visit [facility] Evaluation + Plan note Future Appointments Appointment Date:10/30/2022 10:30:00 AM Scheduled Provider:Sharla MONTIEL MD Location:[facility] Appointment Type:URO Office Visit Diagnostic Tests PendingPSA Total 05/01/22 [facility] Evaluation + Plan note Future Appointments Appointment Date:10/30/2022 10:30:00 AM Scheduled Provider:Sharla MONTIEL MD Location:[facility] Appointment Type:URO Office Visit [facility] Evaluation + Plan note Future Appointments Appointment Date:02/05/2023 11:30:00 AM Scheduled Provider:[facility] Office Visit [facility] Evaluation + Plan note Future Appointments Appointment Date:01/08/2023 09:30:00 AM Scheduled Provider:Sharla MONTIEL MD Location:[facility] Appointment Type:URO Office Visit [facility] Evaluation + Plan note Future Appointments Appointment Date:01/07/2024 11:15:00 AM Scheduled Provider:Sharla MONTIEL MD [facility] App[facility] Type:URO Office Visit Diagnostic Tests PendingPSA Total 07/02/23 [facility] Evaluation note No assessment inform ation [facility] Work Phone: Evaluation note Diagnosis Non-recurrent unilateral [...] available for this section [facility] Discharge instructions No data available for this section [facility] filedocumented in this encounter [facility] filedocumented in this encounter [facility] System[facility]Not on filedocumented in this encounter [facility] No data available for this section [facility] [place] reason for referral (narrative)* Consultation (Routine) - Authorized Specialty Diagnoses / Procedures Referred By Kirstin abdalla Referred To Contact General Surgery Diagnoses Non-recurrent unilateral inguinal hernia without obstruction or gangrene Keerthi Gill MD [address] [place] [id number] Jeana Parra DO [address] [place] [id number] Referral ID Status Reason Start Date Expiration Date Visits Requested Visits Authorized [id number] Authorized Specialty Services Required 04/24/2023 04/23/2024 1 1 [facility] [employer] Summary Purpose Family History No Family History Records FoundNo Family History Records FoundNo Family History Records FoundNo Family History Records FoundNo Family History Records Found No data available for this section No Family History Records FoundNo Family History Records FoundNo Family History Records Found Advance Directives No Advanced Directives Records Found Advance Directive Response Recorded Date/ Time Advance Directives No June 10 019 3:11pm Advance Directive Response Recorded Date/ Time Advance Directives No June 10 019 4:11pm Chief Complaint and Reason for Visit Chief Complaint R29.810 Chief Complaint r97.20 Additional Source Comments (unrecognized sect ion and content) No Status Records FoundNo Status Records FoundNo Status Records FoundNo Status Records FoundNo Status Records FoundNo Status Records FoundNo Status Records FoundNo Status Records Found INFORMATION SOURCE (unrecogn ized section and content) DATE CREATED AUTHOR 03/10/2019 [facility] DATE CREATED AUTHOR AUTHOR'S ORGANIZ ATION 06/04/2021 [facility] d[facility] Specialist DATE CREATED AUTHOR AUTHOR'S ORGANIZ ATION 09/10/2022 [facility] [place] [facility] DATE CREATED AUTHOR AUTHOR'S ORGANIZ ATION 04/07/2023 [facility] dical Specialists EPIC DATE CREATED AUTHOR AUTHOR'S ORGANIZ ATION 04/29/2023 [facility] DATE CREATED AUTHOR AUTHOR'S ORGANIZ ATION 08/01/2023 [facility] DATE CREATED AUTHOR AUTHOR'S ORGANIZ ATION 08/02/2023 Wen Sampson [facility] DATE CREATED AUTHOR AUTHOR'S ORGANIZ ATION 08/08/2023 [facility] Care Team (unrecognized sect ion and content) Team Status: Inactive Member Role Status Dates Krishna Solorio , DO Attending Provider Active Monica Parham , DO Primary Care Provider Active Team Status: Active Member Role Status Dates Monica Parham , DO Primary Care Provider Active 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 Relationship Specialty Start Date End Date Keerthi Gill MD [address] [place] [address] PCP - General Internal Medicine 03/22/23 Grocery Clerk Relationship Specialty Start Date End Date Keerthi Gill MD [address] [place] [address] PCP - General Internal Medicine 03/22/23 Grocery Clerk Relationship Specialty Start Date End Date Keerthi Gill MD [address] [place] [address] PCP - General Internal Medicine 03/22/23 Team Status: Active Member Role Status Dates NON STAFF Primary Care Provider Active Team Status: Inactive Member Role Status Dates Sharla Montiel MD Attending Provider Active St art: July 30, 2023 End: July 30, 2023 NON STAFF Primary Care Provider Active Start: July 30, 2023 End: July 30, 2023 Goals (unrecognized section and content) Goals may [...] obstruction or gangrene Keerthi Gill MD [address] [place] [address] Jeana Parra, [address] [place] [id number] Referral ID Status Reason Start Date Expiration Date Visits Requested Visits Authorized [id number] Pending Review Specialty Services Required 04/24/2023 04/23/2024 [...] BE BASED ON THE PRIMARY CLINICAL RECORDS. [employer] provides no warranty or guarantee of the accuracy or completeness of information in this document.
[2024-01-04 16:40] LABS: Prostate Specific Antigen Dx 7.17 ng/mL (<=4.00)
== END 2024-01-04 15:35 | disposition home or self-care (01) ==
PROVIDERS: PCP Urology; Visit Provider Urology
DX: R97.20 Elevated prostate specific antigen [PSA] (principal)
CPT/HCPCS: 36415; 84153

== ENCOUNTER 2024-01-07 14:12 | Outpatient (OUT) | payer BC, SELFPAY ==
--- NOTE | 2024-01-07 14:17 | XR_ITS ---
The [address] [address] Patient Name: KATHERINE PONCE MRN: [id number] date: 1955 Sex: M Assigned Patient Location: [facility] Current Patient Location: Accession/Order Number: [id number] Exam Date: 01/07/2024 14:25 Report Date: 01/09/2024 05:50 At the request of: SHARLA ARRIAZA Procedure: XR abdomen 1V EXAMINATION: XR abdomen 1V HISTORY: Kidney Stone COMPARISON: No relevant comparison available. FINDINGS: KIDNEY/URETER - RIGHT: Calcification(s) projecting over inferior pole right kidney; this appears to represent 3 adjacent 5 mm stones, but could represent a single 15 mm stone. KIDNEY/URETER - LEFT: No visible renal or ureteral calcifications. PELVIS: No visible ureteral stone. Stable pelvic calcifications compatible with phleboliths. BOWEL: No abnormal dilation or deviation. BONES: No acute abnormality. OTHER: Negative. No abnormal gaseous collections. XR/XR abdomen 1V IMPRESSION: 1. Grossly stable right nephrolithiasis. Electronically authenticated by: JOHANNA MARIE Date: 01/09/2024 05:50
--- OUTSIDE RECORDS SUMMARY | 2024-01-07 14:32 | XMS_ITS | CCD ---
Author Organization [facility] Care Team Providers Care Manufacturing Quality Engineer Name Role Phone MONICA PARHAM Primary Care [...] SHAYNA, DR JOE Cardona Consulting Unavailabl e ANTOLINEBER, DR JOHANNA Layton Consulting Unavailable Jose Alfredo Keerthi MAGANA Primary Care Provider [phone] BRITT REYES Attending Unavailable JOSE ALFREDO, MUHAMID M Attending Unavailable JOSE ALFREDO, MUHAMID M Referring Unavailable JOSE ALFREDO, MUHAMID M Primary Care Unavailable JOSE ALFREDO, MUHAMID M Attending Unavailable JOSE ALFREDO, MUHAMID M Referring Unavailable JOSE ALFREDO, MUHAMID M Primary Care Unavailable MD Sharla Montiel Attending Provider [phone] NON STAFF Primary Care Provider UnavailJORDAN Melissa [...] JOSE ALFREDO, MUHAMID M Primary Care Unavailable NON STAFF Primary Care Unavailable Sharla Montiel Attending Unavailable Sharla Montiel Admitting Unavailable Sharla MONTIEL Attending Unavailable CORI, MONICA Primary Care Unavailable Sharla MONTIEL Attending Unavailable CORI, MONICA Primary Care Unavailable Sharla MONTIEL Attending Unavailable CORI, MONICA Primary Care Unavailable Allergies Allergy Classification Reported Allergen(s) Allergy Type Date of Onset Reaction(s) Facility (11 sources) Sulfamethoxazole / Trimethoprim; Translations: [sulfamethoxazole-t rimethoprim] Drug Allergy Unknown (qualifier value) [facility] (11 sources) Sulfonamides (Antibiotic); Translations: [sulfa drugs] Drug allergy Itching (finding), Weal (disorder) [facility] (1 source) Sulfonamides (Antibiotic) Drug allergy (disorder) 08-23-19 17 [facility] (5 sources) Sulfonamides (Antibiotic); Translations: [SULFA (SULFONAMIDE ANTIBIOTICS)] Propensity to adverse reactions to drug 09-22-19 17 [facility] (1 source) Sulfonamides (Antibiotic) Drug allergy (disorder) 06-13-19 [facility] Medications Current Medications Medication Drug Class(es) [...] day(s), # 28 cap(s), Refills(s) 0, Pharmacy: [facility]/pharmacy #[id number], 179, cm, 05/01/22 9:25:00 EST, Height/Length Dosing, 88, kg, 05/01/22 9:25:00 EST, Weight Dosing Start Date: 09/18/22 Stop Date: 10/02/22 Status: Ordered dutasteride 0.5 mg oral capsule (4 sources) 5-alpha Reductase Inhibitor Start: 10-09-2022 take 1 capsule by mouth once daily dutasteride 0.5 mg Cap 0.5 mg = 1 cap(s), Oral, Daily, # 30 cap(s), Refills(s) 11, [facility]acy: [facility][id number], 178, cm, 10/09/22 8:32:00 EDT, Height/Length Dosing, [...] day(s), # 14 tab(s), Refills(s) 0, Pharmacy: [facility]/pharmacy #[id number], 179, cm, 05/01/22 9:25:00 EST, Height/Length [...] tab(s), Oral, BID, 90 tab(s), Refill(s) 3, [facility]/pharmacy #[id number], 179, cm, 05/01/22 9:25:00 EST, Height/Length Dosing, 88, kg, 05/01/22 9:25:00 EST, Weight Dosing Start Date: 09/18/22 Status: Ordered Start: 10-28-2021 potassium CITR ATE 10 mEq ER Tab 10 mEq, 1 tab(s), Oral, BID, 90 tab(s), Refill(s) 3, [facility]/pharmacy #[id number], 177.8, cm, 10/28/21 10:29:00 EDT, Height/Length [...] Daily, # 90 cap(s), Refills(s) 3, Pharmacy: [facility]/pharmacy #[id number], 179, cm, 05/01/22 9:25:00 EST, Height/Length Dosing, 88, kg, 05/01/22 9:25:00 EST, Weight Dosing Start Date: 05/30/22 Status: Ordered Start: 06-13-2018 take 0.4 mg by mouth every twenty-four hours Tamsulosin Active 0.4 MG PO Q24H June 13, 2018 12:00am Vitamin D3 (10 [...] Other penitentiary (current) drug therapy; Translations: [OTH PHYSICAL INTEGRATION PRACTITIONER CURRENT DRUG THERAPY] Onset: 08-28-2022 Episodic Other [...] - MRI Reporton RAD - MRI Report [id number] #1.00TIFF Normal [facility] Creatinine (Bld) [Mass/Vol]O rdered By: Sharla Montiel on 07-30-2023 Creatinine [Mass/Vol] 1.3 mg/dL 0.6-1.3 [facility] Comment on above: ER/ESD physician is notified/shown all ISTAT results.Critical values may be confirmed by laboratory testing ifdeemed necessary by ER attending doctor. ISTAT XRay CREon 07-30-2023 Creatinine [Mass/Vol] 1.3 mg/dL Normal 0.6-1.3 [facility] Comment on above: Result Comment: ER/E SD physician is notified/shown all ISTAT results. Critical values may be confirmed by laboratory testing if deemed necessary by ER attending doctor. Performed By: #### I SCRE #### [facility] [address] [place] [address] ISTAT GFR > 60.0 Normal [facility] Comment on above: Result Comment: PERF ORMED BY: [place] [address] PATHOLOGIST HEADING AND PRIMING OPERATOR TRENT STEWART M.D. Performed By: #### I SCRE #### [facility] [address] [place] [address] MR prostate wo/w conon 07-29 MR prostate wo/w con [facility] [place] [address] [place] [address] MRI Report Signed Patient: Zander Ponce MR#: [id number] : 1955 Acct:[id number] Age/Sex: 67 / M ADM Date: 07/30/23 Loc: Room: Type: [facility] Attending Dr: Sharla Montiel MD Copies to: [...] cancer. Impression dictated by: Terrell Ayala Jr., D.O.07/30/2023 6:41 PM Dictation Location: [facility]-15 Transcribed By: [facility] 07/30/23 184 Dictated By: Terrell Ayala Jr, DO 07/30/23 1838 Signed By: 07/30/23 1841 Normal [facility] No Panel InformationOrdered By: Sharla Montiel on 07-30-2023 Bedside Estimated GFR (eGFR) > 60.0 [facility] Ambulatory Visit Summaryon 0 07-02-2023 Ambulatory Visit [...] Follow-Up Appointments Sunday 11:15 AM EDT With: Sharla MONTIEL MD Where: [facility] Insurance Correspondenceon 0 07-02-2023 Insurance Correspondence [id number] 5#1.00TIFF Normal [facility] Lab Reportson 07-02-2023 Lab Reports [id number] #1.00TIFF Normal [facility] Patient Educationon 07-02-19 Patient Education Oncology [...] Where to find more information ? [employer]: www.cancer.org ? [employer]: www.auanet.org Contact a health care [...] adds flu (more content not included)... Normal [facility] Urology Office/Clinic Noteon 07-02-2023 Urology Office/Clinic Note [...] 4.13 (Dutasteride 8.26) Last MRI 03/10/19 at [facility] - negative. TRUS/bx 2008 - negative. [...] URL [facility] [address], [place] [address] [phone] Additional Instructions: 6 mos w/ PSA Patient Education Prostate Cancer Screening I, Marilu Meng, personally scri (more content not included)... Normal [facility] Comment on above: Result Comment: Elec [...] Owen Pena on 04/26/2023 4:07 PM Normal [facility] US SCROTUMon 04-26-2023 US SCROTUM US SCROTUM [...] Owen Pena on 04/26/2023 11:02 AM Normal [facility] RAD - CT Reporton 01-26-2023 RAD - CT Report [id number] #1.00TIFF Normal [facility] RAD - CT Report [id number] #1.00TIFF Normal [facility] Ambulatory Visit Summaryon 1 Ambulatory Visit Summary LOKESH PONCE :1955 Visit Date:01/08/2023 Ambulatory Visit Instructions Your Diagnosis Gross hematuria BPH with urinary obstruction Kidney stone Elevated PSA Tests Performed Urnls Dip Stick Auto w/o Microscopy POC [address]47 CT Abdomen/Pelvis w/o Contrast -- Results Pending [...] Follow-Up Appointments Sunday 9:45 AM EDT With: SOFIYA MAGANA, Sharla Layton Where: [facility] Patient Educationon 01-09-20 23 Patient Education Nephrology [...] Spinach (cooked), rhubarb, beets, sweet potatoes, and [place] Islander chard. ? Peanuts. ? Potato chips, swedish fries, and baked potatoes with skin on. ? Nuts and nut products. ? Chocolate. ? If you regularly take a diuretic medicine, make sure to eat at least 1 or 2 servings of fruits or vegetables that are high in potassium each day. These include: ? Avocado. ? Banana. ? [place], prune, carrot, or tomato juice. ? Baked [...] fish oil, or vitamin B6. ? Take eyhx-sgp-miifeaj and prescription medicines only as told by your health care provider. These include supplements. What foods should I limit? Limit your in (more content not included)... Normal [facility] Urology Office/Clinic Noteon 01-08-2023 Urology Office/Clinic Note Chief Complaint 3m KUB & PSA HPI Staff DX: Gross Hematuria, BPH, Kidney Stone & [...] low urine volume. KUB done 04/19/22 at [facility] - right renal stone. No ureteral [...] 5.20 & 16.9% Last MRI 03/10/19 at [facility] - negative. TRUS/bx several years ago - negative. Discussed PSA results with pt, slightly increased from previous level. Will continue to monitor. Follow-up With When Contact Information SOFIYA MAGANA, RICHELLE Jenkins In 6 months [facility] [address], [place] [address]- Additional Instructions: w/PSA Patient Education Dietary Guidelines to Help Prevent Kidney Stones I, Sierra Pemberton , personally scribed for Dr. Montiel on 01/08/2023 10:37:12. . Documentation recorded by the scribe, Sierra Pemberton, accurately reflects the services(s) I performed and decisions made by me. Pro (more content not included)... Normal [facility] Comment on above: Result Comment: Elec tronically Signed By: SOFIYA MAGANA, Sharla Layton\.br\Date and Time Signed: 01/08/23 10:40 EDT\.br\Electronically Co-Signed By: Sierra Pemberton.br\Date and Time Co-Signed: 01/08/23 10:37 EDT US LELIA DOP LEG RTon 08-26-19 US LELIA DOP LEG RT EXAMINATION: US [...] by: GIOVANNY ZAYAS Date: 2022-08-25 15:47 Normal [facility] PROF CHEM 8 (BAS METB)on Anion gap [Moles/Vol] 7.8 mmol/L Normal [facility] Comment on above: Performed By: #### B MP ####[facility] [address] [place] [address]Dr. Leeanna Carlson Calcium [Mass/Vol] 9.1 mg/dL Normal 8.5-10.1 [facility] Comment on above: Performed By: #### B MP ####[facility] [address] [place], [place] [address]Dr. Tammieami Carlson Chloride [Moles/Vol] 105 mmol/L Normal 98-107 [facility] Comment on above: Performed By: #### B MP ####[facility] [address] [place] [address]Dr. Leeanna Carlson CO2 [Moles/Vol] 28.6 mmol/L Normal 21.0-32.0 [facility] Comment on above: Performed By: #### B MP ####[facility] [address] [address]Dr. Leeanna Carlson Creatinine [Mass/Vol] 1.18 mg/dL Normal 0.70-1.30 [facility] Comment on above: Performed By: #### B MP ####[facility] [address] [place] [address]Dr. Leeanna Carlson EGFR-AF NAURUAN >60 Normal >=60 [facility] Comment on above: Performed By: #### B MP ####[facility] [address] [place] [address]Dr. Leeanna Carlson EGFR-NON AF NAURUAN >60 Normal >=60 [facility] Comment on above: Performed By: #### B MP ####[facility] [address] [place] [address]Dr. Leeanna Carlson Glucose [Mass/Vol] 96 mg/dL Normal 74-106 [facility] Comment on above: Performed By: #### B MP ####[facility] [address] [place], [place] [address]Dr. Leeanna Carlson Potassium [Moles/Vol] 4.4 mmol/L Normal 3.5-5.1 [facility] Comment on above: Performed By: #### B MP ####[facility] [address] [place], [place] [address]Dr. Leeanna Carlson Sodium [Moles/Vol] 137 mmol/L Normal 136-145 [facility] Comment on above: Performed By: #### B MP ####[facility] [address] [place], [place] [address]Dr. Leeanna Carlson Urea nitrogen [Mass/Vol] 17.0 mg/dL Normal 7.0-18.0 [facility] Comment on above: Performed By: #### B MP ####[facility] [address] [place], [place] [address]Dr. Leeanna Carlson Urea nitrogen/Creatinine [Mass ratio] 14.4 mg/mg Normal [facility] Comment on above: Performed By: #### B MP ####[facility] [address] [place], [place] [address]Dr. Leeanna Carlson PROTIMEon 08-09-2022 INR Coag (PPP) [Relative time] 1.01 {INR} Normal [facility] Comment on above: Performed By: #### P T, PTT ####[facility] [address] [place] [address]Dr. Leeanna Carlson INR GUIDELINES SEE BELOW Normal [facility] Comment on above: Result Comment: AIRAM RED INR: 2.0 - 3.0 CONDITIONS NOT LISTED BELOW 2.5 - 3.5 FOR PROSTHETIC HEART VALVE REPLACEMENT 2.5 - 3.5 RECURRENT THROMBOSIS Performed By: #### P T, PTT ####[facility] [address] [place], [place] [address]DrCassidy Carlson PT Coag (PPP) [Time] 10.7 s Normal 9.0-11.6 [facility] Comment on above: Performed By: #### P T, PTT ####[facility] [address] [place], [place] [address]Dr. Leeanna Carlson PTTon 08-09-2022 aPTT Coag (Bld) [Time] 29.2 s Normal 22.3-36.2 Th [facility] Comment on above: Performed By: #### P T, PTT ####[facility] [address] [place], [place] [address]Dr. Leeanna Carlson CBC AUTO DIFFon 07-28-2022 BASO # 0.0 103/ul Normal 0.0-0.1 [facility] Comment on above: Performed By: #### C BC #### [facility] [address] [place] [address] Dr. Leeanna Carlson Basophils/100 WBC (Bld) 0.8 % Normal 0.2-2.0 [facility] Comment on above: Performed By: #### C BC #### [facility] [address] [place] [address] Dr. Leeanna Carlson EO # 0.0 103/ul Normal 0.0-0.7 [facility] Comment on above: Performed By: #### C BC #### [facility] [address] [place] [address] Dr. Leeanna Carlson Eosinophils/100 WBC (Bld) 0.6 % Critically low 0.9-7.0 [facility] Comment on above: Performed By: #### C BC #### [facility] [address] [place] [address] Dr. Leeanna Carlson Erythrocyte distribution width (RBC) [Ratio] 13.3 % Normal 11.0-15.0 [facility] Comment on above: Performed By: #### C BC #### [facility] [address] [place] [address] Dr. Leeanna Carlson Hematocrit (Bld) [Volume fraction] 46.5 % Normal 42.0-54.0 [facility] Comment on above: Performed By: #### C BC #### [facility] [address] [place] [address] Dr. Leeanna Carlson Hemoglobin (Bld) [Mass/Vol] 15.4 g/dL Normal 14.0-18.0 [facility] Comment on above: Performed By: #### C BC #### [facility] [address] [place] [address] Dr. Leeanna Carlson IG # 0.01 10e3/ul Normal 0.00-0.03 [facility] Comment on above: Performed By: #### C BC #### [facility] [address] [place] [address] Dr. Leeanna Carlson IG % 0.2 % Normal 0.0-0.5 [facility] Comment on above: Performed By: #### C BC #### [facility] [address] [place] [address] Dr. Leeanna Carlson LYMPH # 1.8 103/ul Normal 1.2-3.8 [facility] Comment on above: Performed By: #### C BC #### [facility] [address] [place] [address] Dr. Leeanna Carlson Lymphocytes/100 WBC (Bld) 35.0 % Normal 20.5-60.0 [facility] Comment on above: Performed By: #### C BC #### [facility] [address] [place] [address] Dr. Leeanna Carlson MANUAL DIFF REQ NO Normal [facility] Comment on above: Performed By: #### C BC #### [facility] [address] [place] [address] Dr. Leeanna Carlson MCH (RBC) [Entitic mass] 28.4 pg Normal 25.9-34.0 [facility] Comment on above: Performed By: #### C BC #### [facility] [address] [place] [address] Dr. Leeanna Carlson MCHC (RBC) [Mass/Vol] 33.1 g/dL Normal 29.9-35.2 [facility] Comment on above: Performed By: #### C BC #### [facility] [address] [place] [address] Dr. Leeanna Carlson MCV (RBC) [Entitic vol] 85.6 fL Normal 80.0-94.0 [facility] Comment on above: Performed By: #### C BC #### [facility] [address] [place] [address] Dr. Leeanna Carlson MONO # 0.6 103/ul Normal 0.3-0.8 [facility] Comment on above: Performed By: #### C BC #### [facility] [address] [place] [address] Dr. Leeanna Carlson Monocytes/100 WBC (Bld) 11.5 % Normal 1.7-12.0 [facility] Comment on above: Performed By: #### C BC #### [facility] [address] [place] [address] Dr. Leeanna Carlson NEUT # 2.7 103/ul Normal 1.4-6.5 [facility] Comment on above: Performed By: #### C BC #### [facility] [address] [place] [address] Dr. Leeanna Carlson Neutrophils/100 WBC (Bld) 51.9 % Normal 43.0-75.0 [facility] Comment on above: Performed By: #### C BC #### [facility] [address] [place] [address] Dr. Leeanna Carlson Platelet mean volume (Bld) [Entitic vol] 9.9 fL Normal 9.5-13.5 [facility] Comment on above: Performed By: #### C BC #### [facility] [address] [place] [address] Dr. Leeanna Carlson PLT 191 103/ul Normal 150-450 [facility] Comment on above: Performed By: #### C BC #### [facility] [address] [place], [place] [address] Dr. Leeanna Carlson RBC 5.43 106/ul Normal 4.70-6.10 [facility] Comment on above: Performed By: #### C BC #### [facility] [address] [place], [place] [address] Dr. Leeanna Carlson WBC 5.1 103/ul Normal 4.0-11.0 [facility] Comment on above: Performed By: #### C BC #### [facility] [address] [place], [place] [address] ABD/PELVIS WO CONon [...] JOHANNA MARIE Date: 2022-07-28 10:52 Normal [facility] ER URINE PROFILEon 3 Bilirubin Ql (U) Negative Normal NEGATIVE [facility] Comment on above: Performed By: #### U MICRO, ERUR #### [facility] [address] [place] [address] [address] Leeanna Carlson Clarity (U) CLOUDY Abnormal CLEAR [facility] Comment on above: Performed By: #### U MICRO, ERUR #### [facility] [address] [place] [address] [address] Leeanna Carlson Color (U) BROWN Abnormal YELLOW [facility] Comment on above: Performed By: #### U MICRO, ERUR #### [facility] [address] [place] [address] Dr. Leeanna KEENE A micrscopic examination will be performed if indicated. Normal [facility] Comment on above: Performed By: #### U MICRO, ERUR #### [facility] [address] [place] [address] [address] Leeanna Carlson Glucose Ql (U) Negative Normal NEGATIVE [facility] Comment on above: Performed By: #### U MICRO, ERUR #### [facility] [address] [place] [address] [address] Leeanna Carlson Hemoglobin Ql (U) LARGE Abnormal NEGATIVE [facility] Comment on above: Performed By: #### U MICRO, ERUR #### [facility] [address] [place] [address] [address] Leeanna Carlson Ketones Ql (U) Negative Normal NEGATIVE [facility] Comment on above: Performed By: #### U MICRO, ERUR #### [facility] [address] [place] [address] [address] Leeanna Carlson LEUKOCYTES TRACE Abnormal NEGATIVE [facility] Comment on above: Performed By: #### U MICRO, ERUR #### [facility] [address] [place] [address] [address] Leeanna Carlson Nitrite Ql (U) Negative Normal NEGATIVE [facility] Comment on above: Performed By: #### U MICRO, ERUR #### [facility] [address] [place] [address] [address] Leeanna Carlson pH (U) 5.0 [pH] Normal 5-9 [facility] Comment on above: Performed By: #### U MICRO, ERUR #### [facility] [address] [place] [address] Dr. Leeanna Carlson Protein (U) [Mass/Vol] 30 mg/dL Abnormal NEGAT KIERSTEN/ TRACE [facility] Comment on above: Performed By: #### U MICRO, ERUR #### [facility] [address] [place] [address] Dr. Leeanna Carlson SPEC GRAVITY 1.020 Normal 1.005-<=1.025 [facility] Comment on above: Performed By: #### U MICRO, ERUR #### [facility] [address] [place] [address] Dr. Leeanna Carlson UR MICRO IND INDICATED Normal [facility] Comment on above: Performed By: #### U MICRO, ERUR #### [facility] [address] [place] [address] Dr. Leeanna Carlson Urobilinogen Qn (U) 1.0 {Marito'U}/dL Normal 0.2 - 1. 0 [facility] Comment on above: Performed By: #### U MICRO, ERUR #### [facility] [address] [place] [address] Dr. Leeanna Carlson URINE MICROSCOPIC ONLYon BACTERIA NONE SEEN Normal NONE SEEN [facility] Comment on above: Performed By: #### U MICRO, ERUR #### [facility] [address] [place] [address] Dr. Leeanna Carlson Bacteria identified Cx Nom (U) NOT INDICATED Normal [facility] Comment on above: Performed By: #### U MICRO, ERUR #### [facility] [address] [place] [address] Dr. Leeanna Carlson CAST NONE SEEN Normal NONE SEEN [facility] Comment on above: Performed By: #### U MICRO, ERUR #### [facility] [address] [place] [address] [address] Leeanna Carlson Crystals LM Nom (Urine sed) NONE SEEN Normal NONE SEEN [facility] Comment on above: Performed By: #### U MICRO, ERUR #### [facility] [address] [place] [address] [address] Leeanna Carlson Epithelial cells LM Ql (Urine sed) RARE Normal NONE SEEN /RARE [facility] Comment on above: Performed By: #### U MICRO, ERUR #### [facility] [address] [place] [address] Dr. Leeanna Carlson MUCOUS NONE SEEN Normal NONE SEEN [facility] Comment on above: Performed By: #### U MICRO, ERUR #### [facility] [address] [place] [address] Dr. Leeanna Carlson RBC (U) [#/Vol] /uL Abnormal 0-[address] [facility] Comment on above: Performed By: #### U MICRO, ERUR #### [facility] [facility] [address] [place] [address] Dr. Leeanna Carlson WBC 0-2 Abnormal NONE SEEN [facility] Comment on above: Performed By: #### U MICRO, ERUR #### [facility] [address] [address] [address] Leeanna Carlson CULTURE URINEon 06-14-2022 CULTURE URINE Culture Observations: NO GROWTH. Normal The [facility] Comment on above: Performed By: #### U RCX ####[facility] [address] [address]Dr. Leeanna Carlson UA RANDOMon 06-14-2022 Bilirubin Ql (U) Negative Normal NEGATIVE The [facility] Comment on above: Performed By: #### U A #### [facility] [address] [address] [address] Leeanna Carlson Clarity (U) CLEAR Normal CLEAR [facility] Comment on above: Performed By: #### U A #### [facility] [address] [place] [address] Dr. Leeanna Carlson Color (U) LT. YELLOW Normal YELLOW [facility] Comment on above: Performed By: #### U A #### [facility] [address] [address] [address] Leeanna Carlson Glucose Ql (U) Negative Normal NEGATIVE [facility] Comment on above: Performed By: #### U A #### [facility] [address] [place] [address] Dr. Leeanna Carlson Hemoglobin Ql (U) SMALL Abnormal NEGATIVE [facility] Comment on above: Performed By: #### U A #### [facility] [address] [place] [address] Dr. Leeanna Carlson Ketones Ql (U) Negative Normal NEGATIVE [facility] Comment on above: Performed By: #### U A #### [facility] [address] [place] [address] Dr. Leeanna Carlson LEUKOCYTES Negative Normal NEGATIVE [facility] Comment on above: Performed By: #### U A #### [facility] [address] [place] [address] Dr. Leeanna Carlson Nitrite Ql (U) Negative Normal NEGATIVE [facility] Comment on above: Performed By: #### U A #### [facility] [address] [place] [address] Dr. Leeanna aCrlson pH (U) 6.0 [pH] Normal 5-9 [facility] Comment on above: Performed By: #### U A #### [facility] [address] [place] [address] Dr. Leeanna Carlson SPEC GRAVITY <=1.005 Abnormal 1.005-<=1.025 [facility] Comment on above: Performed By: #### U A #### [facility] [address] [place] [address] Dr. Leeanna Carlson UA PROTEIN Negative Normal NEGATIVE/ TRACE [facility] Comment on above: Performed By: #### U A #### [facility] [address] [place] [address] Dr. Leeanna Carlson Urobilinogen Qn (U) 0.2 {Marito'U}/dL Normal 0.2 - 1. 0 [facility] Comment on above: Performed By: #### U A #### [facility] [address] [address] [address] Leeanna Carlson US KIDNEYSon 06-14-2022 US [...] ARTHUR ONTIVEROS Date: 2022-06-14 14:27 Normal [facility] XR KUB 1 VIEWon 06-14-2022 [...] by: GIOVANNY ZAYAS Date: 2022-06-14 13:33 Normal [facility] Creatinine (Bld) [Mass/Vol]O rdered By: Dave Solorio on 04-27-2022 Creatinine [Mass/Vol] 1.2 mg/dL 0.6-1.3 [facility] Comment on above: ER/ESD physician is notified/shown all ISTAT results.Critical values may be confirmed by laboratory testing ifdeemed necessary by ER attending doctor. No Panel InformationOrdered By: Dave Solorio on 04-27-2022 POC Estimated GFR > 60 [facility] Comment on above: GFR estimated refere nce range: According to KDOQI guidelines, <60 ml/min/1.73m2 is sufficient to diagnose a patient with chronic kidney disease. POC Estimated GFR Non- Amer > 60 [facility] XR KUB 1 VIEWon 04-19-2022 XR KUB [...] by: GIOVANNY ZAYAS Date: 2022-04-19 16:59 Normal [facility] XR KUB 1 VIEWon 10-06-2021 XR KUB [...] by: JOHANNA MARIE Date: 2021-10-06 16:08 Normal [facility] CBC AUTO DIFFon 09-28-2021 BASO # 0.0 103/ul Normal 0.0-0.1 [facility] Comment on above: Performed By: #### C BC ####[facility] [address] [place], [place] [address]HeCassidy Durán Carlson Basophils/100 WBC (Bld) 0.8 % Normal 0.2-2.0 [facility] Comment on above: Performed By: #### C BC ####[facility] [address] [address]Dr. Leeanna Carlson EO # 0.1 103/ul Normal 0.0-0.7 [facility] Comment on above: Performed By: #### C BC ####[facility] [address] [place], [place] [address]Dr. Leeanna Carlson Eosinophils/100 WBC (Bld) 2.0 % Normal 0.9-7.0 [facility] Comment on above: Performed By: #### C BC ####[facility] [address] [place], [place] [address]Dr. Leeanna Carlson Erythrocyte distribution width (RBC) [Ratio] 13.2 % Normal 11.0-15.0 [facility] Comment on above: Performed By: #### C BC ####[facility] [address] [place], [place] [address]Dr. Leeanna Carlson Hematocrit (Bld) [Volume fraction] 47.8 % Normal 42.0-54.0 [facility] Comment on above: Performed By: #### C BC ####[facility] [address] [place], [place] [address]Dr. Leeanna Carlson Hemoglobin (Bld) [Mass/Vol] 15.8 g/dL Normal 14.0-18.0 [facility] Comment on above: Performed By: #### C BC ####[facility] [address] [place], [place] [address]Dr. Leeanna Carlson IG # 0.01 10e3/ul Normal 0.00-0.03 [facility] Comment on above: Performed By: #### C BC ####[facility] [address] [place], [place] [address]Dr. Leeanna Carlson IG % 0.2 % Normal 0.0-0.5 [facility] Comment on above: Performed By: #### C BC ####[facility] [address] [place], [place] [address]Dr. Leeanna Carlson LYMPH # 1.4 103/ul Normal 1.2-3.8 [facility] Comment on above: Performed By: #### C BC ####[facility] [address] [id number]. Leeanna Carlson Lymphocytes/100 WBC (Bld) 29.1 % Normal 20.5-60.0 [facility] Comment on above: Performed By: #### C BC ####[facility] [address] [id number]. Leeanna Aldo MANUAL DIFF REQ NO Normal The [facility] Comment on above: Performed By: #### C BC ####[facility] [address] [id number]. Leeanna Aldo MCH (RBC) [Entitic mass] 28.4 pg Normal 25.9-34.0 [facility] Comment on above: Performed By: #### C BC ####[facility] [address] [place], [place] [address]Dr. Leeanna Aldo MCHC (RBC) [Mass/Vol] 33.1 g/dL Normal 29.9-35.2 [facility] Comment on above: Performed By: #### C BC ####[facility] [address] [place], [place] [address]Dr. Leeanna Aldo MCV (RBC) [Entitic vol] 86.0 fL Normal 80.0-94.0 [facility] Comment on above: Performed By: #### C BC ####[facility] [address] [place], [place] [address]Dr. Leeanna Aldo MONO # 0.5 103/ul Normal 0.3-0.8 [facility] Comment on above: Performed By: #### C BC ####[facility] [address] [place], [place] [address]Dr. Leeanna Aldo Monocytes/100 WBC (Bld) 9.9 % Normal 1.7-12.0 [facility] Comment on above: Performed By: #### C BC ####[facility] [address] [place], [place] [address]Dr. Leeanna Carlson NEUT # 2.9 103/ul Normal 1.4-6.5 [facility] Comment on above: Performed By: #### C BC ####[facility] [address] [address]Dr. Leeanna Carlson Neutrophils/100 WBC (Bld) 58.0 % Normal 43.0-75.0 [facility] Comment on above: Performed By: #### C BC ####[facility] [address] [address]Dr. Leeanna Carlson Platelet mean volume (Bld) [Entitic vol] 10.3 fL Normal 9.5-13.5 [facility] Comment on above: Performed By: #### C BC ####[facility] [address] [place], [place] [address]Dr. Leeanna Carlson PLT 187 103/ul Normal 150-450 [facility] Comment on above: Performed By: #### C BC ####[facility] [address] [place], [place] [address]Dr. Leeanna Carlson RBC 5.56 106/ul Normal 4.70-6.10 [facility] Comment on above: Performed By: #### C BC ####[facility] [address] [place], [place] [address]Dr. Leeanna Carlson WBC 4.9 103/ul Normal 4.0-11.0 [facility] Comment on above: Performed By: #### C BC ####[facility] [address] [place], [place] [address]Dr. Leeanna Carlson PROF CHEM 8 (BAS METB)on Anion gap [Moles/Vol] 8.9 mmol/L Normal [facility] Comment on above: Performed By: #### B MP ####[facility] [address] [place], [place] [address]Dr. Leeanna Carlson Calcium [Mass/Vol] 9.1 mg/dL Normal 8.5-10.1 [facility] Comment on above: Performed By: #### B MP ####[facility] [address] [place], [place] [address]Dr. Leeanna Carlson Chloride [Moles/Vol] 105 mmol/L Normal 98-107 [facility] Comment on above: Performed By: #### B MP ####[facility] [address] [address]Dr. Leeanna Carlson CO2 [Moles/Vol] 27.8 mmol/L Normal 21.0-32.0 [facility] Comment on above: Performed By: #### B MP ####[facility] [address] [address]Dr. Leeanna Carlson Creatinine [Mass/Vol] 1.18 mg/dL Normal 0.70-1.30 [facility] Comment on above: Performed By: #### B MP ####[facility] [address] [address]Dr. Leeanna Carlson EGFR-AF NAURUAN >60 Normal >=60 [facility] Comment on above: Performed By: #### B MP ####[facility] [address] [place], [place] [address]Dr. Leeanna Carlson EGFR-NON AF NAURUAN >60 Normal >=60 [facility] Comment on above: Performed By: #### B MP ####[facility] [address] [place], [place] [address]Dr. Leeanna Carlson Glucose [Mass/Vol] 110 mg/dL Critically high 74-106 [facility] Comment on above: Performed By: #### B MP ####[facility] [address] [place], [place] [address]Dr. Leeanna Carlson Potassium [Moles/Vol] 4.7 mmol/L Normal 3.5-5.1 [facility] Comment on above: Performed By: #### B MP ####[facility] [address] [place], [place] [address]Dr. Leeanna Carlson Sodium [Moles/Vol] 137 mmol/L Normal 136-145 [facility] Comment on above: Performed By: #### B MP ####[facility] [address] [place], [place] [address]Dr. Leeanna Carlson Urea nitrogen [Mass/Vol] 22.0 mg/dL Critically high 7.0-18.0 [facility] Comment on above: Performed By: #### B MP ####[facility] [address] [place], [place] [address]Dr. Leeanna Carlson Urea nitrogen/Creatinine [Mass ratio] 18.6 mg/mg Normal [facility] Comment on above: Performed By: #### B MP ####[facility] [address] [place], [place] [address]NkDr. Leeanna Carlson PROTIMEon 09-28-2021 INR Coag (PPP) [Relative time] 0.98 {INR} Normal [facility] Comment on above: Performed By: #### P TT, PT #### [facility] [address] [address] [address] Leeanna Carlson INR GUIDELINES SEE BELOW Normal [facility] Comment on above: Result Comment: AIRAM RED INR: 2.0 - 3.0 CONDITIONS NOT LISTED BELOW 2.5 - 3.5 FOR PROSTHETIC HEART VALVE REPLACEMENT 2.5 - 3.5 RECURRENT THROMBOSIS Performed By: #### P TT, PT #### [facility] [address] [address] [address] Leeanna Carlson PT Coag (PPP) [Time] 10.6 s Normal 9.0-11.6 [facility] Comment on above: Performed By: #### P TT, PT #### [facility] [address] [address] [address] Leeanna Carlson PTTon 09-28-2021 aPTT Coag (Bld) [Time] 29.3 s Normal 22.3-36.2 [facility] Comment on above: Performed By: #### P TT, PT #### [facility] [address] [place] [address] Dr. Leeanna Carlson Comprehensive Metabolic Pane puneet 06-03-2021 Albumin [Mass/Vol] 4.6 g/dL Normal 3.6-5.1 [facility] Comment on above: Performed By: #### V ITD, LIPD, CMP #### [facility] [address] [place], [place] [id number] Albumin/Globulin [Mass ratio] 1.9 {ratio} Normal 1.0-2.5 [facility] Comment on above: Performed By: #### V ITD, LIPD, CMP #### [facility] [address] [place], [place] [id number] ALP [Catalytic activity/Vol] 85 U/L Normal 40-129 [facility] Comment on above: Performed By: #### V ITD, LIPD, CMP #### [facility] [address] [place], [place] [id number] ALT [Catalytic activity/Vol] 28 U/L Normal 9-46 [facility] Comment on above: Result Comment: 03/02 Female reference range changed. Performed By: #### V ITD, LIPD, CMP #### [facility] [address] [place], [place] [id number] Anion gap [Moles/Vol] 18 mmol/L Normal 12-20 [facility] Comment on above: Result Comment: Effe ctive 04/07/2019 reference range changed. Performed By: #### V ITD, LIPD, CMP #### [facility] [address] [place], [place] [id number] AST [Catalytic activity/Vol] 25 U/L Normal 10-40 [facility] Comment on above: Performed By: #### V ITD, LIPD, CMP #### [facility] [address] [place], [place] [id number] Bilirubin [Mass/Vol] 0.65 mg/dL Normal 0.30-1.20 [facility] Comment on above: Performed By: #### V ITD, LIPD, CMP #### [facility] [address] [place], [place] [id number] BUN/CREA 24 Ratio High 6-22 [facility] Comment on above: Performed By: #### V ITD, LIPD, CMP #### [facility] [address] [place], [place] [id number] Calcium [Mass/Vol] 9.4 mg/dL Normal 8.6-10.2 [facility] Comment on above: Performed By: #### V ITD, LIPD, CMP #### [facility] [address] [place], [place] [id number] Chloride [Moles/Vol] 105 mmol/L Normal 98-107 [facility] Comment on above: Performed By: #### V ITD, LIPD, CMP #### [facility] [address] [place], [place] [id number] CO2 [Moles/Vol] 23 mmol/L Normal 20-31 [facility] Comment on above: Performed By: #### V ITD, LIPD, CMP #### [facility] [address] [place], [place] [id number] Creatinine [Mass/Vol] 1.1 mg/dL Normal 0.7-1.4 [facility] Comment on above: Performed By: #### V ITD, LIPD, CMP #### [facility] [address] [place], [place] [id number] eGFRAA 86 mL/min/1.73m2 Normal >60 [facility] Comment on above: Performed By: #### V ITD, LIPD, CMP #### [facility] [address] [place], [place] [id number] eGFRNAA 71 mL/min/1.73m2 Normal >60 [facility] Comment on above: Performed By: #### V ITD, LIPD, CMP #### [facility] [address] [place], [place] [id number] Globulin (S) [Mass/Vol] 2.4 g/dL Normal 1.9-3.7 [facility] Comment on above: Performed By: #### V ITD, LIPD, CMP #### [facility] [address] [place], [place] [id number] Glucose [Mass/Vol] 97 mg/dL Normal 65-99 [facility] Comment on above: Result Comment: For FASTING Glucose --- ADA reference ranges: Normal 65-99 mg/dl Prediabetes 100-125 Diabetes >/= 126 Performed By: #### V ITD, LIPD, CMP #### [facility] [address] [place], [place] [id number] Potassium [Moles/Vol] 4.5 mmol/L Normal 3.5-5.5 [facility] Comment on above: Performed By: #### V ITD, LIPD, CMP #### [facility] [address] [place], [place] [id number] Protein [Mass/Vol] 7.0 g/dL Normal 6.1-8.1 [facility] Comment on above: Performed By: #### V ITD, LIPD, CMP #### [facility] [address] [place], [place] [id number] Sodium [Moles/Vol] 141 mmol/L Normal 135-146 [facility] Comment on above: Performed By: #### V ITD, LIPD, CMP #### [facility] [address] [place], [place] [id number] Urea nitrogen [Mass/Vol] 26 mg/dL High 7-25 [facility] Comment on above: Performed By: #### V ITD, LIPD, CMP #### [facility] [address] [place], [place] [id number] Hemoglobin A1Con 06-03-2021 EAG 125.50 Normal [facility] Comment on above: Performed By: #### A 1C #### [facility] [address] [place], [place] [id number] HbA1c (Bld) [Mass fraction] 6.0 % Normal 4.0-6.0 [facility] Comment on above: Performed By: #### A 1C #### [facility] [address] [place], [place] [id number] Lipid Panelon 06-03-2021 Cholesterol [Mass/Vol] 232 mg/dL High 125-200 [facility] Comment on above: Result Comment: Low risk < 200mg/dL Borderline risk 201-239 mg/dl High risk > or equal to 240 Performed By: #### V ITD, LIPD, CMP #### [facility] [address] [place], [place] [id number] Cholesterol in HDL [Mass/Vol] 68 mg/dL Normal >40 [facility] Comment on above: Result Comment: High Cardiovascular Risk HDL <40 mg/dL Low Cardiovascular Risk HDL > or equal to 60 mg/dl Performed By: #### V ITD, LIPD, CMP #### [facility] [address] [place], [place] [id number] Cholesterol in LDL [Mass/Vol] 153 mg/dL Normal [facility] Comment on above: Result Comment: LDL ATP III CLASSIFICATION LDL less than 100 mg/dl Optimal LDL 100-129 mg/dl Near or above optimal LDL 130-159 Borderline high LDL 160-189 High LDL greater than 189 mg/dl Very High Performed By: #### V LAINE POOL, CMP #### [facility] [address] [place], [place] [id number] Cholesterol in VLDL [Mass/Vol] 11 mg/dL Normal [facility] Comment on above: Performed By: #### V LAINE POOL, CMP #### [facility] [address] [place], [place] [id number] Cholesterol.total/Chol esterol in HDL [Mass ratio] 3 {ratio} Normal [facility] Comment on above: Performed By: #### V LAINE POOL, CMP #### [facility] [address] [place], [place] [id number] Triglyceride [Mass/Vol] 55 mg/dL Normal 30-150 [facility] Comment on above: Result Comment: TRIG ATPIII CLASSIFICATIONS TRIG less than 150 mg/dl Normal TRIG 150-199 mg/dl Borderline High TRIG 200-500 mg/dl High TRIG greather than 500 mg/dl Very High Performed By: #### V LAINE POOL, CMP #### [facility] [address] [place], [place] [id number] Prostatic Specific Antigen, Totalon 06-03-2021 TPSA 5.030 ng/mL High <4.000 [facility] Comment on above: Result Comment: PSA Test Method: ECLIA/Maira e 601 Performed By: #### P SA #### [facility] [address] [place], [place] [id number] Vitamin D 25-OHon 06-03-2021 VIT D 25 OH 57 ng/ml Normal >29 [facility] Comment on above: Result Comment: Amanda min D Status Deficiency <20 ng/mL Insufficiency 20-29 ng/mL Optimal 30-100 ng/mL Possible Toxicity >=150 ng/mL Performed By: #### V ROMAINE POOLD, CMP #### [facility] [address] [place], [place] [id number] MRI PROSTATE WO/W IVCONon MRI PROSTATE WO/W IVCON * * *Final Report* * * DATE OF EXAM: Mar 10 2019 1:21PM Q [id number] - MRI PROSTATE WO/W IVCON / [...] prostate and pelvis performed on a 3T (Forgame) scanner utilizing phase pelvic coil. Sequences obtained: Multiplanar T2-WI with small [id number]; Axial diffusion weighted images with multiple B-values and creation of ADC-maps; Dynamic contrast enhanced T1-weighted images through the prostate were also obtained before, during and after the administration of intravenous gadolinium. Prostate dimensions and volume were obtained using a semi-automated software ([employer]). CONTRAST: IV: 17 cc of (Dotarem). RESULT: [...] 5: Clinically significant cancer is highly likely (V.05.2019) User Acceptance Tester: GEOFF Transcribe Date/Time: Mar 10 2019 1:33P Dictated by : DAVE JONES MD This examination was interpreted and the report reviewed and electronically signed by: DAVE JONES MD on Mar 10 2019 2:15PM EST [id number] Normal [facility] PROGRESSon 03-10-2019 PROGRESS HNO ID: [id number] Author: Hallie Manning) QUIN Saavedra Service: Radiology [...] March 10, 2019 TIME: 12:15 PM Normal [facility] PROGRESS HNO ID: [id number] Author: Rosina Ferrari (Tech) Service: Radiology Author Type: Swatch Clerk Type: Progress Notes Filed: 03/10/2019 12:54 PM [...] Ferrari March 10, 2019 12:54 PM Normal [facility] Vital Signs Date Time Vital Sign Value Performing Clinician Faci lity 07-02-2023 09:42-0400 Blood Pressure Location Sharla MONTIEL [facility] 07-02-2023 09:42-0400 Body temperature 98.6 [degF] Sharlaastrid MONTIEL [facility] 07-02-2023 09:42-0400 Diastolic blood pressure 84 mm[Hg] Sharla MONTIEL [facility] 07-02-2023 09:42-0400 Heart rate 75 /min Sharla MONTIEL [facility] 07-02-2023 09:42-0400 Respiratory rate 17 /min Sharlaastrid MONTIEL [facility] 07-02-2023 09:42-0400 Systolic blood pressure 137 mm[Hg] Sharlaastrid MONTIEL [facility] 05-23-2023 13:45-0500 Body height 177.8 cm Jeana Parra DO Work Phone: [facility] 05-23-2023 13:45-0500 Body mass index (BMI) [Ratio] 28.5 kg/m2 Jeana Parra DO Work Phone: [facility] 05-23-2023 13:45-0500 Body weight 90.08 kg Jeana Parra DO Work Phone: [facility] 05-23-2023 13:45-0500 Diastolic blood pressure 85 mm[Hg] Jeana Parra DO Work Phone: [facility] 05-23-2023 13:45-0500 Heart rate 63 /min Jeana Parra DO Work Phone: [facility] 05-23-2023 13:45-0500 Systolic blood pressure 134 mm[Hg] Jeana Oliviayury KLEIN Work Phone: [facility] 04-24-2023 13:03-0500 Body mass index (BMI) [Ratio] 29.1 kg/m2 Keerthi Gill MD Work Phone: [facility] 04-24-2023 13:03-0500 Body temperature 97.7 [degF] Keerthi Gill MD Work Phone: [facility] 04-24-2023 13:03-0500 Body weight 91.99 kg Keerthi Gill MD Work Phone: [facility] 04-24-2023 13:03-0500 Diastolic blood pressure 78 mm[Hg] Keerthi Gill MD Work Phone: [facility] 04-24-2023 13:03-0500 Heart rate 71 /min Keerthi Gill MD Work Phone: [facility] 04-24-2023 13:03-0500 SaO2% (BldA) [Mass fraction] 97 % Keerthi Gill MD Work Phone: [facility] 04-24-2023 13:03-0500 Systolic blood pressure 134 mm[Hg] Keerthi Gill MD Work Phone: [facility] 10-09-2022 08:31-0400 Blood Pressure Location Sharla MONTIEL [facility] 10-09-2022 08:31-0400 Diastolic blood pressure 74 mm[Hg] Sharla MONTIEL [facility] [facility] 10-09-2022 08:31-0400 Heart rate 80 /min Sharla MONTIEL [facility] 10-09-2022 08:31-0400 Respiratory rate 16 /min Sharla MONTIEL [facility] 10-09-2022 08:31-0400 Systolic blood pressure 130 mm[Hg] Sharla MONTIEL [facility] 05-01-2022 09:15-0500 Blood Pressure Location Sharla MONTIEL [facility] 05-01-2022 09:15-0500 Diastolic blood pressure 84 mm[Hg] Sharla MONTIEL [facility] 05-01-2022 09:15-0500 Heart rate 75 /min Sharla MONTIEL [facility] 05-01-2022 09:15-0500 Respiratory rate 16 /min Sharla MONTIEL [facility] 05-01-2022 09:15-0500 Systolic blood pressure 129 mm[Hg] Sharla MONTIEL [facility] 04-27-2022 07:35-0500 Body height 177.8 cm DO Monica Cori Work Phone: [facility] 04-27-2022 07:35-0500 Body weight 88.45 kg DO Monica Cori Work Phone: [facility] 04-19-2022 13:20-0500 Blood Pressure Location DONALD BHAGAT [facility] 04-19-2022 13:20-0500 Diastolic blood pressure 74 mm[Hg] DONALD LEOLA [facility] 04-19-2022 13:20-0500 Heart rate 72 /min DONALD LEOLA [facility] 01-18-2023 13:20-0500 Respiratory rate 16 /min DONALD BHAGAT [facility] 04-19-2022 13:20-0500 Systolic blood pressure 126 mm[Hg] DONALD BHAGAT [facility] 10-28-2021 10:27-0400 Blood Pressure Location Sharla MONTIEL [facility] 10-28-2021 10:27-0400 Diastolic blood pressure 81 mm[Hg] Sharla MONTIEL [facility] 10-28-2021 10:27-0400 Heart rate 54 /min Sharla MONTIEL [facility] 10-28-2021 10:27-0400 Respiratory rate 16 /min Sharla MONTIEL [facility] 10-28-2021 10:27-0400 Systolic blood pressure 134 mm[Hg] Sharla MONTIEL [facility] 08-17-2021 10:03-0400 Blood Pressure Location Sharla MONTIEL [facility] 08-17-2021 10:03-0400 Diastolic blood pressure 87 mm[Hg] Sharla MONTIEL [facility] 08-17-2021 10:03-0400 Heart rate 58 /min Sharla MONTIEL [facility] 08-17-2021 10:03-0400 Systolic blood pressure 134 mm[Hg] Sharla MONTIEL [facility] Encounters Encounter Date Encounter Type Care Provider Facility Start: 01-07-2024 ambulatory Sharla MONTIEL Facili ty:[facility] Start: 07-31-2023 End: 07-31-2023 ambulatory [facility] Start: 07-30-2023 End: 07-30-2023 ambulatory NON STAFF Facility:[facility] Start: 07-30-2023 End: 07-30-2023 ambulatory NON STAFF [facility] Work Phone: Start: 07-30-2023 End: 07-30-2023 Patient encounter procedure MD Sharla Montiel Work Phone: [facility] [place] Work Phone: Start: 07-02-2023 End: 07-02-2023 ambulatory Sharla MONTIEL Facility:[facility] [place] Start: 07-02-2023 End: 07-02-2023 Patient encounter procedure Sharla MONTIEL [facility] [place] Start: 05-23-2023 End: 05-23-2023 ambulatory UN[facility] Mario LUIS [facility] Start: 05-23-2023 End: 05-23-2023 [facility] Comment on above: Acute epididymitis ( Primary Dx); Non-recurrent unilateral inguinal hernia without obstruction or gangrene; Epididymitis Start: 04-26-2023 End: 04-27-2023 ambulatory [facility] Start: 04-24-2023 End: 04-24-2023 ambulatory [facility] Start: 04-24-2023 End: 04-24-2023 Office outpatient visit 25 minutes Keerthi Gill MD Work Phone: [facility] Comment on above: Non-recurrent unilat eral inguinal hernia without obstruction or gangrene (Primary Dx); Flank pain Start: 04-06-2023 End: 04-06-2023 ambulatory BRITT REYES Not Available Start: 04-04-2023 ambulatory Sarah Stone [facility] Quality - Care Coordination Team Start: 04-04-2023 Coordination of care plan Sarah ventura [facility] - Care Coordination Team Start: 03-22-2023 End: 03-22-2023 ambulatory KEERTHI Lopez [facility] Start: 01-08-2023 End: 01-08-2023 ambulatory Sharla MONTIEL Facility:[facility] Start: 10-09-2022 End: 10-09-2022 Patient encounter procedure Sharla MONTIEL [facility] Start: 09-18-2022 End: 09-18-2022 Patient encounter procedure Sharla MONTIEL [facility] Start: 08-29-2022 End: 08-29-2022 Patient encounter procedure Sharla MONTIEL [facility] Start: 08-25-2022 End: 08-25-[address] DOCTOR HALEY Facility:[facility] Start: 08-17-2022 End: 08-18-[address] DOCTOR HALEY Facility:[facility] Start: 08-12-2022 Encounter for preprocedural cardiovascular examination DR SHARLA MONTIEL . [facility] Start: 08-12-2022 Encounter for preprocedural laboratory examination DR SHARLA MONTIEL . [facility] Start: 08-09-2022 End: 08-10-[address] SHARLA MONTIEL . Facility:[facility] Start: 08-09-2022 End: 08-10-2022 Encounter for preprocedural cardiovascular examination DR SHARLA MONTIEL . Facility:[facility] Start: 07-28-2022 End: 07-28-[address] DOCTOR HALEY Facility:[facility] Start: 06-14-2022 End: 06-15-[address] GIOVANNY ZAYAS Facility:[facility] Start: 06-14-2022 End: 06-14-2022 Patient encounter procedure DONALD BHAGAT [facility] Start: 05-01-2022 End: 05-01-2022 Patient encounter procedure Sharla MONTIEL [facility] Start: 04-27-2022 End: 04-27-2022 ambulatory DO Monica G Cori Work Phone: [facility] Work Phone: Start: 04-27-2022 End: 04-27-2022 Patient encounter procedure DO Monica Cori Work Phone: [facility] [place] Work Phone: Start: 04-19-2022 End: 04-20-[address] GIOVANNY ZAYAS Facility:[facility] Start: 04-19-2022 End: 04-19-2022 Patient encounter procedure DONALD BHAGAT [facility] Start: 10-28-2021 End: 10-28-2021 Lab Drop off Sharla MONTIEL [facility] Start: 10-28-2021 End: 10-28-2021 Patient encounter procedure Sharla MONTIEL [facility] Start: 10-06-2021 End: 10-06-[address] SHARLA MONTIEL . Facility:[facility] Start: 09-28-2021 End: 09-29-[address] SHARLA MONTIEL . Facility:[facility] Start: 08-17-2021 End: 08-17-2021 Patient encounter procedure Sharla MONTIEL [facility] Procedures Date Procedure Procedure Detail Performing Clinician Start: 07-30-2023 MR prostate wo/w con MD Sharla Montiel Work Phone: Start: 03-22-2023 Adult depression scr eening assessment Sarah Stone [employer] [employer] Start: 11-27-2022 Colonoscopy Sarah ventura [employer] [employer] Start: 08-29-2022 Cystoscopic removal of ureteric stent Sharla MONTIEL Start: 08-17-2022 Transurethral prostatectomy Sharla MONTIEL Start: 04-27-2022 MRI of head DO Monicaheather gonzalez Work Phone: Start: 03-12-2020 Cystoscopy Sharla [...] for malign ant neoplasm of colon Colonoscopy [facility] Start: 06-27-2024 DTaP,Tdap and Td Vac cines (2 - Td or Tdap) DTaP,Tdap and Td Vaccines (2 - Td or Tdap) [facility] Start: 05-23-2024 Adult BMI Screening Adult BMI Screen ing [facility] Start: 05-23-2024 Tobacco Screening Tobacco Screening [facility] Start: 04-24-2024 Adult BMI Screening Adult BMI Screen ing [facility] Start: 04-24-2024 Tobacco Screening Tobacco Screening [facility] Start: 04-04-2024 Fall Risk Screening Fall Risk Screen ing [facility] Start: 03-22-2024 Adult BMI Screening Adult BMI Screen ing [facility] Start: 03-22-2024 Depression Screening Depression Scre ening [facility] Start: 03-22-2024 Fall Risk Screening Fall Risk Screen ing [facility] Start: 03-22-2024 Tobacco Screening Tobacco Screening [facility] Start: 09-25-2023 End: 09-25-2023 Patient encounter procedure 09/25/2023 10:15 AM EDT Office Visit [facility] [address] [place] [id number] Keerthi Gill MD [address] [place] [address] [facility] Start: 05-02-2023 End: 05-02-2023 Patient encounter procedure 05/02/2023 9:15 AM EST Office Visit [facility] [address] [place] [phone] Jenaa Parra DO [address] [place], [place] [id number] [facility] Start: 04-26-2023 End: 04-26-2023 Patient encounter procedure [facility] - [facility] Start: 04-24-2023 End: 04-24-2024 US Retroperitoneum Ultrasound retroperitoneal complete Imaging Routine Flank pain Expected: 04/24/2023, Expires: 04/24/2024 [employer] Comment on above: Expected: 04/24/2023 , Expires: 04/24/2024 Start: 04-24-2023 End: 04-24-2024 US Scrotum and testicle Ultrasound scrotum Imaging Routine Non-recurrent unilateral inguinal hernia without obstruction or gangrene Expected: 04/24/2023, Expires: 04/24/2024 [employer] Work Phone: Comment on above: Expected: 04/24/2023 , Expires: 04/24/2024 Start: 12-01-2022 COVID-19 Vaccine ( season) COVID-19 Vaccine () [employer] Start: 12-01-2022 Influenza vaccination Influenza Vacc ine [facility] Start: 09-23-2007 Administration of varicella zoster vaccine Zoster (Shingles) Vaccine (1 of 2) [employer] Start: 09-23-1975 Adult BMI Follow Up Plan Adult BMI F ollow Up Plan [employer] Start: 1955 Medicare Annual Well ness Visit Medicare Annual Wellness Visit [facility] Immunizations Immunization Date Immunization Notes Care Provider Brittnee agustin 03-03-2022 SARS-CoV-2 (COVID-19 ) [id number] Sharla MONTIEL [facility] 08-20-2021 SARS-CoV-2 (COVID-19 ) mRNA-1273 vaccine Sharla MONTIEL [facility] 03-02-2021 SARS-CoV-2 (COVID-19 ) mRNA-1273 vaccine Sharla MONTIEL [facility] 02-20-2021 SARS-CoV-2 (COVID-19 ) mRNA-1273 vaccine Sharla MONTIEL [facility] 01-23-2021 SARS-CoV-2 (COVID-19 ) [id number] vaccine Sharla MONTIEL [facility] 06-27-2014 tetanus toxoid, redu juventino diphtheria toxoid, and acellular pertussis vaccine, adsorbed Sharla MONTIEL [facility] Payers Date Payer Category Payer Self-pay [id number] 2023 Medicare [id number] 2014 Unknown [place]/TRUST [id number] 2014-Present [phone] [address] [place] [address] [id number] 1959 Unknown [id number] 1957 Unknown [id number] 2.16.840.1.254509.3.579.2.593 1957 Unknown [id number] 2.16.840.1.647595.3.579.2.593 1957 Unknown [id number] 2.16.840.1.651783.3.579.2.593 1957 Unknown [id number] 2.16.840.1.879359.3.579.2.593 1957 Unknown [id number] 2.16.840.1.535061.3.579.2.593 1957 Unknown [id number] 2.16.840.1.097264.3.579.2.593 1957 Unknown [id number] 2.16.840.1.963929.3.579.2.593 1957 Unknown [id number] 2.16.840.1.243521.3.579.2.593 1957 Unknown [id number] 2.16.840.1.807293.3.579.2.125 9 1957 Unknown [id number] 2.16.840.1.212754.3.579.2.128 6 1957 Unknown [id number] 2.16.840.1.417420.3.579.2.128 6 1957 Unknown [id number] 2.16.840.1.952601.3.579.2.128 6 1957 Unknown [id number] 2.16.840.1.406823.3.579.2.128 6 1957 Unknown [id number] 2.16.840.1.976774.3.579.2.128 6 1957 Unknown [id number] 2.16.840.1.434940.3.579.2.128 6 1957 Unknown [id number] 2.16.840.1.630496.3.579.2.727 1957 Unknown [id number] 2.16.840.1.855233.3.579.2.727 1957 Unknown [id number] 2.16.840.1.444729.3.579.2.727 Medicare Medicare-OP No Part B [id number] Unknown [id number] 2.16.840.1.998407.3.579.2.531 Social History Date Type Detail Facility Start: 06-13-2018 End: 08-17-2021 Tobacco smoking status Never smoked tobacco (finding) [facility] Start: 04-19-2022 Tobacco smoking status Never [facility] [employer] Start: 04-23-2020 End: 03-22-2023 Sex Assigned At Male [facility] [employer] Start: 1955 Sex Assigned At Male [facility] Start: 07-17-2022 Tobacco use and exposure Smokeless tobacco [facility]user [facility] Start: 03-22-2023 End: 05-23-2023 Alcohol intake Lifetime non-drinker (finding) [facility] Start: 04-23-2020 End: 03-22-2023 History of Social function [facility] Start: 1955 Sex Assigned At Not on file P Alma Johns Functional Status Date Assessment Result Facility 07-02-2023 Functional Status N/A [facility] 10-09-2022 Functional Status N/A [facility] 05-01-2022 Functional Status N/A [facility] 04-19-2022 Functional Status N/A [facility] 10-28-2021 Functional Status N/A [facility] Clinical Notes 08-16-2021 to 07-02-2023 Jeana [...] treatment? Where to find more information [employer]: www.cancer.org [employer]: www.auanet.org Contact a health care [...] provider. Document Revised: 09/12/2021 Document Reviewed: 09/12/2021 [employer] Patient Education 2022 [employer]. Follow Up Care 01/08/2023 10:36:36 With:SOFIYA MAGANA, Sharla Layton URL Address: [facility] [address] [place] [id number] When: Unknown Comments:6 mos w/ PSA [facility] [place] 05-23-2023 History of Present illness Narrative Images from the original note were not included. [facility] [address] [facility] [phone] CONSULT NOTE Omer Pena 67 y.o. CHIEF [...] and does not rest. He also plays [employer] 2 times a week. 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 Jeana Parra DO This note was created with the assistance of a speech recognition program. While intending to generate a timely document that accurately reflects the content of the visit, no guarantee can be provided that every grammatical or spelling mistake has been or will be identified or corrected. Thank you for your understanding. documented in this encounter [facility] 04-24-2023 History of Present illness Narrative Images from the original note were not included. [address] [place] [address] [address] [facility] [phone] Patient: Zander Ponce Date of : [...] or gangrene - Ultrasound scrotum; Future - [facility] - [facility] [place] [place]; Future 67-year-old gentleman who has recently had a colonoscopy completed by Dr. Potts. Will refer to Dr. Parra consideration for surgical intervention. KEERTHI GILL MD Family Medicine Physician [facility] / [facility] 04/24/23 This note was completed with voice recognition software. The document was reviewed for errors however some may still be present. Please do not hesitate to contact/Epic msg the author to verify any questions/concerns. documented in this encounter [facility] 04-04-2023 History of Present illness Narrative Date of Call: April 04, 2023 Date of Positive Fall Risk Screenin03/22/2023 PT Referral Placed by PCP: No Result of Call: Answered Patient consent to enroll in Program: No Status of PT Referral: Patient declined Goals: Resources Provided: Additional Comments: Patient completed fall risk screening but declines program participation. documented in this encounter [facility] 10-09-2022 Hospital Discharge instructions Patient Education 10/09/2022 [...] Follow these instructions at home: Medicines Take yqfy-ahb-exerzsf and prescription medicines only as told by [...] or the blood stops without treatment. Take pqpd-diq-rxbkyog and prescription medicines only as told by your health care provider. Drink enough fluid to keep your urine pale yellow. This information is not intended to replace advice given to you by your health care provider. Make sure you discuss any questions you have with your health care provider. Document Revised: 11/17/2020 Document Reviewed: 11/17/2020 [employer] Patient Education 2022 [employer]Me. Follow Up Care 10/02/2022 10:55:28 With:SOFIYA MAGANA, Sharla Layton, URL Address: [facility] [address] [place] [phone] When:Within 3 Month(s) [facility] 08-29-2022 Hospital Discharge instructions Patient Education 08/29/2022 [...] including vitamins, herbs, eye drops, creams, and znws-tvr-pddwspd medicines. Any problems you or family members [...] provider tells you to take them. Taking eoiy-lmz-apczzmb medicines, vitamins, herbs, and supplements. Surgery safety [...] provider. Document Revised: 12/13/2021 Document Reviewed: 12/13/2021 [employer] Patient Education 2022 K[employer]Me. Follow Up Care 08/24/2022 09:38:00 With:SOFIYA MAGANA, Sharla Layton, URL Address: [facility] [address] , [place] [address]- Business (1) When: Unknown [facility] 05-01-2022 Hospital Discharge instructions Patient Education 05/01/2022 [...] include: ?Spinach. ?Rhubarb. ?Beets. ?Potato chips and swedish fries. ?Nuts. If you regularly take a diuretic medicine, make sure to eat at least 1 2 fruits or vegetables high in potassium each day. These include: ?Avocado. ?Banana. ?S[place], prune, carrot, or tomato juice. ?Baked potato. [...] Casseroles. Pizza. Lasagna. Frozen meals. Potato chips. Macanese fries. Summary You can reduce your risk [...] 07/14/2011 Document Revised: 07/09/2019 Document Reviewed: 02/27/2017 [employer] Patient Education 2020 [employer]Me. Follow Up Care 10/28/2021 11:17:16 With:Sharla MONTIEL MD, URL Address: [facility] [address], [place] [address]- When: Unknown [facility] 04-19-2022 Hospital Discharge instructions Patient Education 04/19/2022 13:43:01 Kidney Stones, Qhpf-ex-Xwdl Kidney Stones Kidney stones are rock-like masses [...] Follow these instructions at home: Medicines Take gflc-rrj-imindxw and prescription medicines only as told by [...] 09/04/2008 Document Revised: 08/05/2019 Document Reviewed: 08/05/2019 [employer] Patient Education 2019 K[employer]Me. Follow Up Care 04/17/2022 09:12:19 With:SOFIYA MAGANA, Sharla Layton, URL Address: [address] [place], [place] [id number]- When: Unknown [facility] 10-28-2021 Hospital Discharge instructions Patient Education 10/28/2021 [...] one of these risk factors: ?Being of -Serbian descent. ?Having a family history of prostate [...] you: Are older than age 55. Are -Serbian. Have a father, brother, or uncle who [...] 12/28/2017 Document Revised: 03/01/2018 Document Reviewed: 12/28/2017 [employer] Patient Education 2020 [employer] Follow Up Care 08/17/2021 11:01:21 With:SOFIYA MAGANA, Sharla Layton, URL Address: [facility] [address] [place] [address]- [phone] When:Within 6 Month(s) Comments:w/ TANIA and JASON [facility] 08-16-2021 Hospital Discharge instructions Patient Education 08/16/2021 [...] one of these risk factors: ?Being of -Serbian descent. ?Having a family history of prostate [...] you: Are older than age 55. Are -Serbian. Have a father, brother, or uncle who [...] 12/28/2017 Document Revised: 03/01/2018 Document Reviewed: 12/28/2017 [employer] Patient Education 2020 [employer]. Follow Up Care 06/27/2021 09:31:40 With:Sharla MONTIEL MD, URL Address: [facility] [address] , [place] [address]- When:10/17/2021 [facility] Evaluation + Plan note Future Appointments Appointment Date:10/28/2021 09:45:00 AM Scheduled Provider:Sharla MONTIEL MD Location:[facility] [place] Appointment Type:URO Office Visit Diagnostic Tests PendingPSA Total 08/17/21 [facility] Evaluation + Plan note Future Appointments Appointment Date:05/01/2022 09:15:00 AM Scheduled Provider:Sharla MONTIEL MD Location:[facility] Appointment Type:URO Office Visit Diagnostic Tests PendingPSA Total 10/28/21 [facility] Evaluation + Plan note Future Appointments Appointment Date:05/01/2022 09:15:00 AM Scheduled Provider:[facility] Office Visit Diagnostic Tests PendingCalculi Analysis Urinary 10/28/21 [facility] Evaluation + Plan note Future Appointments Appointment Date:05/01/2022 09:15:00 AM Scheduled Provider:Sharla MONTIEL MD Location:[facility] Appointment Type:URO Office Visit [facility] Evaluation + Plan note Future Appointments Appointment Date:10/30/2022 10:30:00 AM Scheduled Provider:Sharla MONTIEL MD Location:[facility] Appointment Type:URO Office Visit Diagnostic Tests PendingPSA Total 05/01/22 [facility] Evaluation + Plan note Future Appointments Appointment Date:10/30/2022 10:30:00 AM Scheduled Provider:Sharla MONTIEL MD Location:[facility] Appointment Type:URO Office Visit [facility] Evaluation + Plan note Future Appointments Appointment Date:02/05/2023 11:30:00 AM Scheduled Provider:Sharla MONTIEL MD Location:[facility] Appointment Type:URO Office Visit [facility] Evaluation + Plan note Future Appointments Appointment Date:01/08/2023 09:30:00 AM Scheduled Provider:Sharla MONTIEL MD Location:[facility] Appointment Type:URO Office Visit [facility] [facility] Evaluation + Plan note Future Appointments Appointment Date:01/07/2024 11:15:00 AM Scheduled Provider:Sharla MONTIEL MD Location:[facility] Appointment Type:URO Office Visit Diagnostic Tests PendingPSA Total 07/02/23 [facility] Evaluation note No assessment inform ation available [facility] Work Phone: Evaluation note Diagnosis Non-recurrent unilateral inguinal hernia without obstruction or gangrene- Primary Flank pain Abdominal pain, unspecified site [facility] this [facility] Acute epididymitis- Primary Other orchitis, epididymitis, and epididymo-orchitis, without mention of abscess Non-recurrent unilateral inguinal hernia without obstruction or gangrene Epididymitis Unspecified orchitis and epididymitis documented in this encounter [facility] N[facility] No data available for this section [facility] Hospital Discharge instructions No data available for this section [facility] filedocumented in this encounter [facility] filedocumented in this encounter [facility]Not on filedocumented in this encounter [facility] No data available for this section [facility] reason for referral (narrative)* Consultation (Routine) - Authorized Specialty Diagnoses / Procedures Referred By Kirstin abdalla Referred To Contact General Surgery Diagnoses Non-recurrent unilateral inguinal hernia without obstruction or gangrene Keerthi Gill MD [address] [place] [address] [place] [address] Jeana Parra DO [address] [place] [id number] Referral ID Status Reason Start Date Expiration Date Visits Requested Visits Authorized [id number] Authorized Specialty Services Required 04/24/2023 04/23/2024 1 1 [facility] Summary Purpose Family History No Family History Records FoundNo Family History Records FoundNo Family History Records FoundNo Family History Records FoundNo Family History Records Found No data available for this section No Family History Records FoundNo Family History Records FoundNo Family History Records Found Advance Directives No Advanced Directives Records Found Advance Directive Response Recorded Date/ Time Advance Directives No June 10 3:11pm Advance Directive Response Recorded Date/ Time Advance Directives No June 10 4:11pm Chief Complaint and Reason for Visit Chief Complaint R29.810 Chief Complaint r97.20 Additional Source Comments (unrecognized sect ion and content) No Status Records FoundNo Status Records FoundNo Status Records FoundNo Status Records FoundNo Status Records FoundNo Status Records FoundNo Status Records FoundNo Status Records Found INFORMATION SOURCE (unrecogn ized section and content) DATE CREATED AUTHOR 03/10/2019 [facility] DATE CREATED AUTHOR AUTHOR'S ORGANIZ ATION 06/04/2021 [facility] DATE CREATED AUTHOR AUTHOR'S ORGANIZ ATION 09/10/2022 [facility] DATE CREATED AUTHOR AUTHOR'S ORGANIZ ATION 04/07/2023 [facility] DATE CREATED AUTHOR AUTHOR'S ORGANIZ ATION 04/29/2023 [facility] DATE CREATED AUTHOR AUTHOR'S ORGANIZ ATION 08/01/2023 [facility] DATE CREATED AUTHOR AUTHOR'S ORGANIZ ATION 08/08/2023 [facility] DATE CREATED AUTHOR AUTHOR'S ORGANIZ ATION 01/07/2024 [facility] Care Team (unrecognized sect ion and content) Team Status: Inactive Member Role Status Dates Krishna Solorio DO Attending Provider Active Monica Parham DO Primary Care Provider Active Team Status: Active Member Role Status Dates Monica Parham DO Primary Care Provider Active Manufacturing Quality Engineer Relationship Specialty Start Date End Date Keerthi Gill MD [address] [place] [address] PCP - General Internal Medicine 03/22/23 Manufacturing Quality Engineer Relationship Specialty Start Date End Date Keerthi Gill MD [address] [place] [address] PCP - General Internal Medicine 03/22/23 Manufacturing Quality Engineer Relationship Specialty Start Date End Date Keerthi Gill MD [address] [place], [place] [id number] PCP - General Internal Medicine 03/22/23 Team [...] obstruction or gangrene Keerthi Gill MD [address] [place] [address] Jeana Parra DO [address] [place] [id number] Referral ID Status Reason Start Date Expiration Date Visits Requested Visits Authorized [id number] Pending Review Specialty Services Required 04/24/2023 04/23/2024 [...] BE BASED ON THE PRIMARY CLINICAL RECORDS. [employer] provides no warranty or guarantee of the accuracy or completeness of information in this document.
== END 2024-01-07 14:13 | disposition home or self-care (01) ==
LOC: RAD 14:14
PROVIDERS: PCP Urology; Visit Provider Urology
DX: N20.0 Calculus of kidney (principal)
CPT/HCPCS: 74018

== ENCOUNTER 2024-01-23 13:13 | Outpatient (OUT) | payer BC, SELFPAY ==
--- NOTE | 2024-01-23 13:15 | CT_ITS ---
[address] [address] Patient Name: KATHERINE PONCE MRN: [id number] date: 1955 Sex: M Assigned Patient Location: CT Current Patient Location: Accession/Order Number: [id number] Exam Date: 01/23/2024 13:20 Report Date: 01/26/2024 07:51 At the request of: SHARLA ARRIAZA Procedure: CT abdomen pelvis wo con EXAMINATION: CT abdomen pelvis wo con HISTORY: Kidney Stone ; right flank pain COMPARISON: CT abdomen pelvis 01/19/2023 TECHNIQUE: Axial, Coronal, and Sagittal images were obtained without and/or with IV contrast as indicated by examination type. Dose reduction techniques were achieved by using automated exposure control and/or adjustment of mA and/or kV according to patient size and/or use of iterative reconstruction technique. FINDINGS: LUNG BASES: No visible pulmonary or pleural disease. LIVER: No enlargement, atrophy, suspicious density, or significant focal lesion. BILIARY: No dilatation or calcification. PANCREAS: No lesion, fluid collection, or abnormal duct dilatation. SPLEEN: No enlargement or focal lesion. ADRENALS: No mass or enlargement. KIDNEYS: Right kidney contains a 1.5 cm nonobstructing stone, 7.2 cm benign-appearing cyst, and within the superior pole is a 1.6 cm hypodensity possibly representing a complex cyst. Left kidney contains a few tiny one-2 mm stones. No convincing ureteral stones. Calcification within left pelvis is suspected to be adjacent the ureter not within the ureter. BOWEL/MESENTERY: No visible mass, obstruction, or bowel wall thickening. AORTA/VASCULAR: No aneurysm or dissection. RETROPERITONEUM: No mass or adenopathy. LYMPH NODES: No adenopathy. URINARY BLADDER: No visible focal wall thickening, lesion, or calculus. PELVIC ORGANS: Enlarged prostate approximately 7.0 x 6.7 x 5.3 cm. ABDOMINAL WALL: Small fat filled left inguinal hernia without strangulation. BONES: No bony lesion or fracture. OTHER: Negative. CT/CT abdomen pelvis wo con IMPRESSION: 1. Bilateral nonobstructing nephrolithiasis. No significant change. 2. Nonspecific 1.6 cm hypodensity within superior pole of right kidney; complex cyst versus mass. Follow-up nonemergent CT abdomen without and with IV contrast is recommended to evaluate enhancement characteristics. 3. Enlarged prostate. Electronically authenticated by: JOHANNA MARIE Date: 01/26/2024 07:51
--- OUTSIDE RECORDS SUMMARY | 2024-01-23 13:30 | XMS_ITS | CCD ---
Author Organization [facility] Care Team Providers Care Torch Heater Name Role Phone MONICA PARHAM Primary Care Physician Unavailab DO Krishna Beasley Attending Provider DO Monica Parham Primary Care Provider [phone] SOFIYA ., DR MAGDALENO Admitting Unavailable MONTIEL ., DR MAGDALENO Consulting Unavailable MONTIEL ., DR MAGDALENO Attending Unavailable HERNÁNDEZWINTER BEE Consulting Unavailable REQUEST, DR NONE LISTED Consulting Unavaila ble MONTIEL ., DR MAGDALENO Admitting Unavailable MISC, DR HOWARD Primary Care Unavailable MONTIEL ., DR MAGDALENO Consulting Unavailable MONTIEL ., DR MAGDALENO Attending Unavailable HERNÁNDEZ, WINTER Consulting Unavailable MONTIEL ., DR MAGDALENO Admitting [...] DONALD Admitting Unavailable LEOLA, DONALD Attending Unavailable LEOLADONALD MEJIA Consulting Unavailable SARAVANANC, DR HOAWRD Primary Care Unavailable MONTIEL ., DR MAGDALENO Admitting Unavailable MONTIEL ., DR MAGDALENO Consulting Unavailable MONTIEL ., DR MAGDALENO Attending Unavailable PEDROSHANIA Nevarez II Consulting Unavailable CLEOPATRA DAVIDSON Consulting Unavailable SARAVANANC, [...] Allergy Type Date of Onset Reaction(s) Facility (12 sources) Sulfamethoxazole / Trimethoprim; Translations: [sulfamethoxazole-t rimethoprim] Drug Allergy Unknown (qualifier value) [facility] (12 sources) Sulfonamides (Antibiotic); Translations: [sulfa drugs] Drug allergy Itching (finding), Weal (disorder) [facility] (1 source) Sulfonamides (Antibiotic) Drug allergy (disorder) 08-23-19 [facility] (5 sources) Sulfonamides (Antibiotic); Translations: [SULFA (SULFONAMIDE ANTIBIOTICS)] Propensity to adverse reactions to drug 09-22-19 17 [facility] (1 source) Sulfonamides (Antibiotic) Drug allergy (disorder) 06-13-19 19 [facility] Repository Medications Current Medications Medication Drug Class(es) [...] day(s), # 28 cap(s), Refills(s) 0, Pharmacy: [facility]/pharmacy #[id number], 179, cm, 05/01/22 9:25:00 EST, Height/Length Dosing, 88, kg, 05/01/22 9:25:00 EST, Weight Dosing Start Date: 09/18/22 Stop Date: 10/02/22 Status: Ordered dutasteride 0.5 mg oral capsule (4 sources) 5-alpha Reductase Inhibitor Start: 10-09-2022 take 1 capsule by mouth once daily dutasteride 0.5 mg Cap 0.5 mg = 1 cap(s), Oral, Daily, # 30 cap(s), Refills(s) 11, Pharmacy: [facility] #[id number], 178, cm, 10/09/22 8:32:00 EDT, Height/Length Dosing, 91, kg, 10/09/22 8:32:00 EDT, Weight Dosing Start Date: 10/09/22 Status: Ordered Fish Oils (12 sources) Start: 01-07-2024 take 2 capsules by mouth three times daily Fish Oil 500 mg oral capsule 1,000 mg = 2 cap(s), Oral, TID, # 130 cap(s), Refills(s) 0 Start Date: 01/07/24 Status: Ordered Start: 08-17-2021 Fish Oil Oral, Refill(s) 0 [...] day(s), # 14 tab(s), Refills(s) 0, Pharmacy: [facility]/pharmacy #[id number], 179, cm, 05/01/22 9:25:00 EST, Height/Length Dosing, 88, kg, 05/01/22 9:25:00 EST, Weight Dosing Start Date: 05/01/22 Stop Date: 05/15/22 Status: Ordered naproxen 500 mg oral tablet (2 sources) Nonsteroidal Anti-inflammatory Drug Start: 06-12-2018 Naproxen Active TABLET June 12, 2018 12:00am potassium citrate 10 meq extended release oral tablet (13 sources) Start: 09-24-2023 potassium CITRATE 10 mEq ER Tab 10 mEq, 1 tab(s), Oral, BID, 180 tab(s), Refill(s) 3, [facility]/pharmacy #[id number], 178, cm, 07/02/23 9:59:00 EDT, Height/Length Dosing, 90.2, kg, 07/02/23 9:59:00 EDT, Weight Dosing Start Date: 09/24/23 Status: Ordered Start: 09-18-2022 potassium CITR ATE 10 mEq ER Tab 10 mEq, 1 tab(s), Oral, BID, 90 tab(s), Refill(s) 3, [facility]/pharmacy #[id number], 179, cm, 05/01/22 9:25:00 EST, Height/Length Dosing, 88, kg, 05/01/22 9:25:00 EST, Weight Dosing Start Date: 09/18/22 Status: Ordered Start: 10-28-2021 potassium CITR ATE 10 mEq ER Tab 10 mEq, 1 tab(s), Oral, BID, 90 tab(s), Refill(s) 3, [facility]/pharmacy #[id number], 177.8, cm, 10/28/21 10:29:00 EDT, Height/Length Dosing, 92.3, kg, 10/28/21 10:29:00 EDT, Weight Dosing Start Date: 10/28/21 Status: Ordered take 1 tablet by gisella th in the morning POTASSIUM CITRATE ORAL Take 1 tablet by mouth in the morning and 1 tablet before bedtime. 0 Active Taltz Autoinjector (2 sources) Start: 07-02-2023 Taltz Autoinje ctor mg, SubCutaneous, q4wk, Refills(s) 0 Start Date: 07/02/23 Status: Ordered tamsulosin hydrochloride 0.4 mg oral capsule (6 sources) alpha-Adrenerg ic Gaurang Start: 05-30-2022 take 1 capsule by mouth once daily tamsulosin 0.4 mg Cap 0.4 mg = 1 cap(s), Oral, Daily, # 90 cap(s), Refills(s) 3, Pharmacy: [facility]/pharmacy #[id number], 179, cm, 05/01/22 9:25:00 EST, Height/Length Dosing, 88, kg, 05/01/22 9:25:00 EST, Weight Dosing Start Date: 05/30/22 Status: Ordered Start: 06-13-2018 take 0.4 mg by mouth every twenty-four hours Tamsulosin Active 0.4 MG PO Q24H June 13, 2018 12:00am Vitamin D3 (11 sources) Start: 08-17-2021 Vitamin D3 Ref ills(s) [...] recurrent] Onset: 04-24-2023 04-24-2023 Episodic Abdominal pain (15 sources) Flank pain; Translations: [Unspecified abdominal pain] [...] Chronic Inflammatory conditions of male genital organs (18 sources) Prostatitis; Translations: [Acute epididymitis] Onset: 05-23-2023 02-07-2019 Episodic Osteoarthritis (3 sources) Arthritis; Translations: [Unspecified osteoarthritis, unspecified site] Onset: 07-17-2022 07-17-2022 Chronic Other aftercare (1 source) 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; Translations: [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] Onset: 08-28-2022 Episodic Other [...] injuries and conditions due to external causes (6 sources) Foreign body in bladder; Translations: [Foreign body in bladder, initial encounter] Onset: 08-29-2022 Episodic Other nervous system disorders (3 sources) Paresthesia of skin; Translations: [PARESTHESIA OF SKIN] Onset: 08-25-2022 Episodic Other screening for suspected conditions (not mental disorders or infectious disease) (20 sources) Raised prostate specific antigen; Translations: [Elevated [...] Spondylosis; intervertebral disc disorders; other back problems (15 sources) Backache; Translations: [Sciatica, right side] Onset: [...] Interpretation Reference Range Facility Ambulatory Visit Summaryon 1 Ambulatory Visit Summary Ambulatory Visit Summary LOKESH PONCE :1955 Visit Date:01/07/2024 Ambulatory Visit Instructions Your Diagnosis Elevated PSA BPH with urinary obstruction Kidney stone Gross hematuria Epididymitis Tests Performed XR Abdomen 1 View -- Results Pending [...] (Taltz Autoinjector) omega-3 polyunsaturated fatty acids (Fish Oil 500 mg oral capsule) omega-3 polyunsaturated fatty acids (Fish Oil) Procedures Performed Cystoscopic removal of ureteric stent (08/29/2022), TURP - Transurethral resection of prostate (08/17/2022), Cystoscopy (03/12/2020), TURP - Transurethral resection of prostate (08/31/2016), Cystoscopy (07/04/2016), Cystoscopy (09/30/2014), TURP - Transurethral resection of prostate (04/21/2010), Urodynamics (02/04/2010), Transrectal biopsy of prostate using ultrasound (US) guidance (07/2008), Cystoscopy (07/2005), Appendectomy, Tonsillectomy. Discharge Vitals Heart Rate (Peripheral) 62 Blood Pressure 136/78 Height 178 cm Height 70 in Weight 90.2 kg Weight 198.44 lb BMI 28.47 What to do next Scheduled Follow-Up Appointments Sunday 10:45 AM EDT With: Sharla MONTIEL MD Where: [facility] [address] [place] [address]- You Need to Schedule the Following Appointments Follow Up with Sharla MONTIEL MD, URL When: Comments: 1 yr w/ PSA Where: [facility] [address] , [place] [address]- [phone] Medications What How Much When Instructions Unchanged potassium citrate (potassium CITRATE 10 mEq ER Tab) 1 Tablets By Mouth 2 times a day Unchanged cholecalciferol (Vitamin D3) Contact prescribing physician if questions or concerns Unchanged ixekizumab (Taltz Autoinjector) Subcutaneous Every 4 weeks Contact prescribing physician if questions or concerns Unchanged omega-3 polyunsaturated fatty acids (Fish Oil 500 mg oral capsule) 2 Capsules By Mouth 3 times a day Contact prescribing physician if questions or concerns Unchanged omega-3 polyunsaturated fatty acids (Fish Oil) By Mouth Contact prescribing physician if questions or concerns Allergies Bactrim DS (Unknown) sulfa drugs (Itchy, Hives) Problems Ongoing - Any problem that you are currently receiving treatment for. Back pain BPH with urinary obstruction Elevated PSA Epididymitis Flank pain Foreign body in bladder Gross hematuria Hematuria History of kidney stones Kidney stone Prostatitis Weak urinary stream Patient Survey You may receive a survey via text or e-mail asking about your office visit. Please share your experience with us by completing your survey. We appreciate your feedback and thank you for choosing us for your care. Education Materials Prostate Cancer Screening Prostate cancer screening is [...] cancer, your health care provider may recommend t (more content not included)... Normal [facility] Urology Office/Clinic Noteon 01-07-2024 Urology Office/Clinic Note Urology Office/Clinic Note Chief Complaint 6 mth f/u w/ psa HPI Staff 6 month f/u with PSA. Dx: elevated PSA, BPH with urinary obstruction, kidney stone, epididymitis and gross hematuria. pt denies any urinary issues, he does state he get pain on right side off an on. pt is raking leaves often and thinks it is possibly from that Dysuria: no Incomplete bladder emptying: no Hematuria: no Frequency: q2-3 hrs Urgency: no Nocturia: no Stream: normal Leaking: no Post void dripping: no Wearing pads/ Depends: no Urge incontinence: no Stress incontinence: no Incontinence without Sensory Awareness: Abdominal pain: no Flank pain: right side off and on Sexual complaints: History of Present Illness Tests reviewed: reviewed UA, MRI, PSA I have reviewed the previous health [...] HPI. Physical Exam Vitals & Measurements HR: 62(Peripheral) BP: 136/78 HT: 70 in HT: 178 cm WT: 90.2 kg WT: 198.44 lb BMI: 28.47 General Appearance: alert, no distress, well nourished, well developed male. Assessment/Plan 1. Elevated PSA (R97.20: Elevated prostate specific antigen [PSA]) PSA 03/08/20 - 4.79 06/03/21 - 5.03 04/26/22 - 4.79 01/05/23 - 5.20 & 16.9% (Dutasteride 10.4) 06/29/23 - 4.13 (Dutasteride 8.26) Stopped Dutasteride 07/02/23. 01/04/24 - 7.17 MRI [facility] - negative. TRUS/bx 2008 - negative. Prostate MRI 07/30/23 [facility] Neg. PSA has decreased from prior. No indication for further intervention, will cont to monitor. 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 S/p TURP 08/17/22 - chronic prostatitis. Prostate MRI 07/30/23 [facility] [place] - Prostate volume 89 mL. Stopped Dutasteride 0.5mg qd at prior OV. Denies any changes in flow since. No bother with urination. 3. Kidney stone (N20.0: Calculus of kidney) [...] wo con 01/19/23 [facility] - Nonobstructing bilateral renal calculi. Previous 8 mm calculus in RIP no longer id'd. Reports R flank discomfort intermittently, lasts a few days. Unsure if it is musculoskeletal. States he can live with the discomfort. Raffaele stone passage since last encounter but did again note stone passage in 12/2022. Taking Potassium Citrate 10 mEq bid. Recommended imaging to further evaluate stones and possible contribution to discomfort. -KUB now. Will call pt with results. -Cont Potassium Citrate 10 mEq bid 4. Gross hematuria (R31.0: Gross hematuria) UCx 04/21/22 and 09/15/22 - negative Previously was experiencing intermittent blood in his urine since his TURP due to median lobe and lateral lobes. UA today negative for blood and infection. No recurrence. -Cont routine UAs and sx monitoring. Pt knows to notify the office if he were to experience gross hematuria or clots. 5. Epididymitis (N45.1: Epididymitis) Tx'd w/ Cipro x10 days. Currently asx. Follow-up With When Contact Information Sharla MONTIEL MD, URL [facility] [address], [place] [address] [phone] Additional Instructions: 1 yr w/ PSA Patient Education Prostate Cancer Screening IMarilu, personally scribed for Dr. Montiel on 01/07/2024 12:40:47. . Documentation recorded by the scribeMarilu, accurately reflects the services(s) I performed and decisions made by me. Authenticated by Dr. Mitchell (more content not included)... Normal [facility] Comment on above: Result Comment: Elec tronically Signed By: Sharla MONTIEL MD\.br\Date and Time Signed: 01/07/24 12:43 EDT\.br\Electronically Co-Signed By: Marilu Meng\Cassidybr\Date and Time Co-Signed: 01/07/24 12:41 EDT RAD - MRI Reporton RAD - MRI Report [id number] #1.00TIFF Normal [facility] Creatinine (Bld) [Mass/Vol]O rdered By: Sharla Montiel on 07-30-2023 Creatinine [Mass/Vol] 1.3 mg/dL 0.6-1.3 [facility] Comment on above: ER/ESD physician is notified/shown all ISTAT results.Critical values may be confirmed by laboratory testing ifdeemed necessary by ER attending doctor. ISTAT XRay CREon 07-30-2023 Creatinine [Mass/Vol] 1.3 mg/dL Normal 0.6-1.3 [facility] Comment on above: Result Comment: ER/E SD physician is notified/shown all ISTAT results. Critical values may be confirmed by laboratory testing if deemed necessary by ER attending doctor. Performed By: #### I SCRE #### [address] ISTAT GFR > 60.0 Normal [facility] Comment on above: Result Comment: PERF ORMED BY: [place] [address] PATHOLOGIST [employer] MANAGER TRENT STEWART M.D. Performed By: #### I SCRE #### [address] MR prostate wo/w conon 07-29 MR prostate wo/w con [facility] [place] [address] [place] [address] MRI Report Signed Patient: Zander Ponce MR#: [id number] : 1955 Acct:[id number] Age/Sex: 67 / M ADM Date: 07/30/23 Loc: Room: Type: [facility] Attending Dr: Sharla Montiel MD Copies to: [...] Ayala Jr., D.O.07/30/2023 6:41 PM Dictation Location: RADIO-PC-15 Transcribed By: DAVID 07/30/231840 Dictated By: Terrell Ayala Jr, DO 07/30/231837 Signed By: 07/30/231840 Normal [facility] No Panel InformationOrdered By: Sharla Montiel on 07-30-2023 Bedside Estimated GFR (eGFR) > 60.0 [facility] Ambulatory Visit Summaryon 0 07-02-2023 Ambulatory Visit [...] MAGANA, Sharla Layton Where: [facility] Normal [facility] Insurance Correspondenceon 0 07-02-2023 Insurance Correspondence [id number] 5#1.00TIFF [facility] Lab Reportson 07-02-2023 Lab Reports [id number] #1.00TIFF Normal [facility] Patient Educationon 07-02-19 Patient Education Oncology [...] Where to find more information ? [employer] [place] [employer]: www.cancer.org ? [place] [employer]: www.auanet.org Contact a health care [...] adds flu (more content not included)... Normal [facility] Urology Office/Clinic Noteon 07-02-2023 Urology Office/Clinic [...] 4.13 (Dutasteride 8.26) Last MRI 03/10/19 [facility] - negative. TRUS/bx 2008 - negative. Discussed [...] [facility] [address], [place] [address]- [phone] Additional Instructions: 6 mos w/ PSA Patient Education Prostate Cancer Screening I, Marilu Meng, personally scri (more content not included)... Normal [facility] Comment on above: Result Comment: Elec [...] Owen Pena on 04/26/2023 4:07 PM Normal [facility] US SCROTUMon 04-26-2023 US SCROTUM US [...] Owen Pena on 04/26/2023 11:02 AM Normal [facility] RAD - CT Reporton 01-26-2023 RAD - CT Report [id number] #1.00TIFF Normal [facility] RAD - CT Report [id number] #1.00TIFF Normal [facility] Ambulatory Visit Summaryon 1 Ambulatory Visit Summary LOKESH PONCE :1955 Visit Date:01/08/2023 Ambulatory Visit Instructions Your Diagnosis Gross hematuria BPH with urinary obstruction Kidney stone Elevated PSA Tests Performed Urnls Dip Stick Auto w/o Microscopy POC [address] CT Abdomen/Pelvis w/o Contrast -- Results Pending [...] MAGANA, Sharla Layton Where: [facility] Patient Educationon 01-09-20 Patient Education Nephrology [...] Spinach (cooked), rhubarb, beets, sweet potatoes, and [place] chard. ? Peanuts. ? Potato chips, samoan fries, and baked potatoes with skin on. ? Nuts and nut products. ? Chocolate. ? If you regularly take a diuretic medicine, make sure to eat at least 1 or 2 servings of fruits or vegetables that are high in potassium each day. These include: ? Avocado. ? Banana. ? [place], prune, carrot, or tomato juice. ? Baked [...] fish oil, or vitamin B6. ? Take vjir-ugo-dnsgjgl and prescription medicines only as told by your health care provider. These include supplements. What foods should I limit? Limit your in (more content not included)... Normal [facility] Urology Office/Clinic Noteon 01-08-2023 Urology Office/Clinic [...] low urine volume. KUB done 04/19/22 at [facility] - right renal stone. No ureteral [...] 5.20 & 16.9% Last MRI 03/10/19 at [facility] - negative. TRUS/bx several years ago - negative. Discussed PSA results with pt, slightly increased from previous level. Will continue to monitor. Follow-up With When Contact Information SOFIYA MAGANA, RICHELLE Jenkins In 6 months [facility] [address], [place] [address]- Additional Instructions: w/PSA Patient Education Dietary Guidelines to Help Prevent Kidney Stones I, Sierra Pemberton , personally scribed for Dr. Montiel on 01/08/2023 10:37:12. . Documentation recorded by the scribe, Sierra Pemberton, accurately reflects the services(s) I performed and decisions made by me. Pro (more content not included)... Normal [facility] Comment on above: Result Comment: Elec [...] by: GIOVANNY ZAYAS Date: 2022-08-25 15:47 Normal [facility] PROF CHEM 8 (BAS METB)on Anion gap [Moles/Vol] 7.8 mmol/L Normal [facility] Comment on above: Performed By: #### B MP ####[facility] [address] [address]Dr. Leeanna Carlson Calcium [Mass/Vol] 9.1 mg/dL Normal 8.5-10.1 [facility] Comment on above: Performed By: #### B MP ####[facility] [address] [address]DrCassidy Carlson Chloride [Moles/Vol] 105 mmol/L Normal 98-107 [facility] Comment on above: Performed By: #### B MP ####[facility] [address] [id number]. Leeanna Carlson CO2 [Moles/Vol] 28.6 mmol/L Normal 21.0-32.0 [facility] Comment on above: Performed By: #### B MP ####[facility] [address] [id number]. Leeanna Carlson Creatinine [Mass/Vol] 1.18 mg/dL Normal 0.70-1.30 [facility] Comment on above: Performed By: #### B MP ####[facility] [address] [address]Dr. Leeanna Carlson EGFR-AF TAJIK >60 Normal >=60 [facility] Comment on above: Performed By: #### B MP ####[facility] [address] [place], [place] [address]Dr. Leeanna Carlson EGFR-NON AF TAJIK >60 Normal >=60 [facility] Comment on above: Performed By: #### B MP ####[facility] [address] [place], [place] [address]Dr. Leeanna Carlson Glucose [Mass/Vol] 96 mg/dL Normal 74-106 [facility] Comment on above: Performed By: #### B MP ####[facility] [address] [place], [place] [address]Dr. Leeanna Carlson Potassium [Moles/Vol] 4.4 mmol/L Normal 3.5-5.1 [facility] Comment on above: Performed By: #### B MP ####[facility] [address] [place], [place] [address]Dr. Leeanna Carlson Sodium [Moles/Vol] 137 mmol/L Normal 136-145 [facility] Comment on above: Performed By: #### B MP ####[facility] [address] [place], [place] [address]Dr. Leeanna Carlson Urea nitrogen [Mass/Vol] 17.0 mg/dL Normal 7.0-18.0 [facility] Comment on above: Performed By: #### B MP ####[facility] [address] [address]DrCassidy Carlson Urea nitrogen/Creatinine [Mass ratio] 14.4 mg/mg Normal [facility] Comment on above: Performed By: #### B MP ####[facility] [address] [place], [place] [address]DrCassidy Carlson PROTIMEon 08-09-2022 INR Coag (PPP) [Relative time] 1.01 {INR} Normal [facility] Comment on above: Performed By: #### P T, PTT ####[facility] [address] [place], [place] [address]Dr. Leeanna Carlson INR GUIDELINES SEE BELOW Normal [facility] Comment on above: Result Comment: AIRAM RED INR: 2.0 - 3.0 CONDITIONS NOT LISTED BELOW 2.5 - 3.5 FOR PROSTHETIC HEART VALVE REPLACEMENT 2.5 - 3.5 RECURRENT THROMBOSIS Performed By: #### P T, PTT ####[facility] [address] [place], [place] [address]Dr. Leeanna Carlson PT Coag (PPP) [Time] 10.7 s Normal 9.0-11.6 [facility] Comment on above: Performed By: #### P T, PTT ####[facility] [address] [place], [place] [address]Dr. Leeanna Carlson PTTon 08-09-2022 aPTT Coag (Bld) [Time] 29.2 s Normal 22.3-36.2 Th [facility] Comment on above: Performed By: #### P T, PTT ####[facility] [address] [place], [place] [address]DrCassidy Carlson CBC AUTO DIFFon 07-28-2022 BASO # 0.0 103/ul Normal 0.0-0.1 [facility] Comment on above: Performed By: #### C BC #### [facility] [address] [address] [address] Leeanna Carlson Basophils/100 WBC (Bld) 0.8 % Normal 0.2-2.0 [facility] Comment on above: Performed By: #### C BC #### [facility] [address] [place] [address] Dr. Leeanna Carlson EO # 0.0 103/ul Normal 0.0-0.7 [facility] Comment on above: Performed By: #### C BC #### [facility] [address] [place] [address] Dr. Leeanna Carlson Eosinophils/100 WBC (Bld) 0.6 % Critically low 0.9-7.0 [facility] Comment on above: Performed By: #### C BC #### [facility] [address] [place] [address] Dr. Leeanna Carlson Erythrocyte distribution width (RBC) [Ratio] 13.3 % Normal 11.0-15.0 [facility] Comment on above: Performed By: #### C BC #### [facility] [address] [place] [address] Dr. Leeanna Carlson Hematocrit (Bld) [Volume fraction] 46.5 % Normal 42.0-54.0 [facility] Comment on above: Performed By: #### C BC #### [facility] [address] [place] [address] Dr. Leeanna Carlson Hemoglobin (Bld) [Mass/Vol] 15.4 g/dL Normal 14.0-18.0 [facility] Comment on above: Performed By: #### C BC #### [facility] [address] [place] [address] Dr. Leeanna Carlson IG # 0.01 10e3/ul Normal 0.00-0.03 [facility] Comment on above: Performed By: #### C BC #### [facility] [facility] [address] [place] [address] Dr. Leeanna Carlson IG % 0.2 % Normal 0.0-0.5 [facility] Comment on above: Performed By: #### C BC #### [facility] [address] [place] [address] Dr. Leeanna Carlson LYMPH # 1.8 103/ul Normal 1.2-3.8 [facility] Comment on above: Performed By: #### C BC #### [facility] [address] [place] [address] Dr. Leeanna Carlson Lymphocytes/100 WBC (Bld) 35.0 % Normal 20.5-60.0 [facility] Comment on above: Performed By: #### C BC #### [facility] [address] [place] [address] Dr. Leeanna Carlson MANUAL DIFF REQ NO Normal [facility] [place] [facility] Comment on above: Performed By: #### C BC #### [facility] [address] [place] [address] Dr. Leeanna Carlson MCH (RBC) [Entitic mass] 28.4 pg Normal 25.9-34.0 [facility] Comment on above: Performed By: #### C BC #### [facility] [address] [place] [address] Dr. Leeanna Carlson MCHC (RBC) [Mass/Vol] 33.1 g/dL Normal 29.9-35.2 [facility] Comment on above: Performed By: #### C BC #### [facility] [address] [place] [address] Dr. Leeanna Carlson MCV (RBC) [Entitic vol] 85.6 fL Normal 80.0-94.0 [facility] Comment on above: Performed By: #### C BC #### [facility] [address] [place] [address] Dr. Leeanna Carlson MONO # 0.6 103/ul Normal 0.3-0.8 [facility] Comment on above: Performed By: #### C BC #### [facility] [address] [place] [address] Dr. Leeanna Carlson Monocytes/100 WBC (Bld) 11.5 % Normal 1.7-12.0 [facility] Comment on above: Performed By: #### C BC #### [facility] [address] [place] [address] Dr. Leeanna Carlson NEUT # 2.7 103/ul Normal 1.4-6.5 [facility] Comment on above: Performed By: #### C BC #### [facility] [address] [place] [address] Dr. Leeanna Carlson Neutrophils/100 WBC (Bld) 51.9 % Normal 43.0-75.0 [facility] Comment on above: Performed By: #### C BC #### [facility] [address] [place] [address] Dr. Leeanna Carlson Platelet mean volume (Bld) [Entitic vol] 9.9 fL Normal 9.5-13.5 [facility] Comment on above: Performed By: #### C BC #### [facility] [address] [place] [address] Dr. Leeanna Carlson PLT 191 103/ul Normal 150-450 [facility] Comment on above: Performed By: #### C BC #### [facility] [address] [place] [address] Dr. Leeanna Carlson RBC 5.43 106/ul Normal 4.70-6.10 [facility] Comment on above: Performed By: #### C BC #### [facility] [address] [place] [address] Dr. Leeanna Carlson WBC 5.1 103/ul Normal 4.0-11.0 [facility] Comment on above: Performed By: #### C BC #### [facility] [address] [place] [address] ABD/PELVIS WO CONon [...] JOHANNA MARIE Date: 2022-07-28 10:52 Normal [facility] ER URINE PROFILEon 3 Bilirubin Ql (U) Negative Normal NEGATIVE [facility] Comment on above: Performed By: #### U MICRO, ERUR #### [facility] [address] [address] [address] Leeanna Carlson Clarity (U) CLOUDY Abnormal CLEAR [facility] Comment on above: Performed By: #### U MICRO, ERUR #### [facility] [address] [address] [address] Leeanna Carlson Color (U) BROWN Abnormal YELLOW [facility] Comment on above: Performed By: #### U MICRO, ERUR #### [facility] [address] [address] [address] Leeanna Carlson ERUAHD A micrscopic examination will be performed if indicated. Normal [facility] Comment on above: Performed By: #### U MICRO, ERUR #### [facility] [address] [address] [address] Leeanna Carlson Glucose Ql (U) Negative Normal NEGATIVE [facility] Comment on above: Performed By: #### U MICRO, ERUR #### [facility] [address] [address] [address] Leeanna Carlson Hemoglobin Ql (U) LARGE Abnormal NEGATIVE [facility] Comment on above: Performed By: #### U MICRO, ERUR #### [facility] [address] [address] [address] Leeanna Carlson Ketones Ql (U) Negative Normal NEGATIVE [facility] Comment on above: Performed By: #### U MICRO, ERUR #### [facility] [address] [place] [address] Dr. Leeanna Carlson LEUKOCYTES TRACE Abnormal NEGATIVE [facility] Comment on above: Performed By: #### U MICRO, ERUR #### [facility] [address] [place] [address] Dr. Leeanna Carlson Nitrite Ql (U) Negative Normal NEGATIVE [facility] Comment on above: Performed By: #### U MICRO, ERUR #### [facility] [address] [place] [address] Dr. Leeanna Carlson pH (U) 5.0 [pH] Normal 5-9 [facility] Comment on above: Performed By: #### U MICRO, ERUR #### [facility] [address] [place] [address] Dr. Leeanna Carlson Protein (U) [Mass/Vol] 30 mg/dL Abnormal NEGAT KIERSTEN/ TRACE [facility] Comment on above: Performed By: #### U MICRO, ERUR #### [facility] [address] [place] [address] Dr. Leeanna Carlson SPEC GRAVITY 1.020 Normal 1.005-<=1.025 [facility] [place] [facility] Comment on above: Performed By: #### U MICRO, ERUR #### [facility] [address] [place] [address] Dr. Leeanna Carlson UR MICRO IND INDICATED Normal [facility] Comment on above: Performed By: #### U MICRO, ERUR #### [facility] [address] [place] [address] Dr. Leeanna Carlson Urobilinogen Qn (U) 1.0 {Marito'U}/dL Normal 0.2 - 1. 0 [facility] Comment on above: Performed By: #### U MICRO, ERUR #### [facility] [address] [place] [address] Dr. Leeanna Carlson URINE MICROSCOPIC ONLYon 04- 28-2023 BACTERIA NONE SEEN Normal NONE SEEN [facility] Comment on above: Performed By: #### U MICRO, ERUR #### [facility] [address] [address] [address] Leeanna Carlson Bacteria identified Cx Nom (U) NOT INDICATED Normal [facility] Comment on above: Performed By: #### U MICRO, ERUR #### [facility] [address] [address] [address] Leeanna Carlson CAST NONE SEEN Normal NONE SEEN [facility] Comment on above: Performed By: #### U MICRO, ERUR #### [facility] [address] [address] [address] Leeanna Carlson Crystals LM Nom (Urine sed) NONE SEEN Normal NONE SEEN [facility] Comment on above: Performed By: #### U MICRO, ERUR #### [facility] [address] [place] [address] Dr. Leeanna Carlson Epithelial cells LM Ql (Urine sed) RARE Normal NONE SEEN /RARE [facility] Comment on above: Performed By: #### U MICRO, ERUR #### [facility] [address] [place] [address] Dr. Leeanna Carlson MUCOUS NONE SEEN Normal NONE SEEN [facility] Comment on above: Performed By: #### U MICRO, ERUR #### [facility] [address] [place] [address] Dr. Leeanna Carlson RBC (U) [#/Vol] /uL Abnormal 0-2 [facility] Comment on above: Performed By: #### U MICRO, ERUR #### [facility] [address] [place] [address] Dr. Leeanna Carlson WBC 0-2 Abnormal NONE SEEN [facility] Comment on above: Performed By: #### U MICRO, ERUR #### [facility] [address] [address] [address] Leeanna Carlson CULTURE URINEon 06-14-2022 CULTURE URINE Culture Observations: NO GROWTH. Normal [facility] Comment on above: Performed By: #### U RCX ####[facility] [address] [address]Dr. Leeanna Carlson UA RANDOMon 06-14-2022 Bilirubin Ql (U) Negative Normal NEGATIVE [facility] Comment on above: Performed By: #### U A #### [facility] [address] [place] [address] Dr. Leeanna Carlson Clarity (U) CLEAR Normal CLEAR [facility] Comment on above: Performed By: #### U A #### [facility] [address] [place] [address] Dr. Leeanna Carlson Color (U) LT. YELLOW Normal YELLOW [facility] Comment on above: Performed By: #### U A #### [facility] [address] [place] [address] Dr. Leeanna Carlson Glucose Ql (U) Negative Normal NEGATIVE [facility] Comment on above: Performed By: #### U A #### [facility] [address] [place] [address] Dr. Leeanna Carlson Hemoglobin Ql (U) SMALL Abnormal NEGATIVE [facility] Comment on above: Performed By: #### U A #### [facility] [address] [place] [address] Dr. Leeanna Carlson Ketones Ql (U) Negative Normal NEGATIVE [facility] Comment on above: Performed By: #### U A #### [facility] [address] [place] [address] Dr. Leeanna Carlson LEUKOCYTES Negative Normal NEGATIVE [facility] Comment on above: Performed By: #### U A #### [facility] [address] [place] [address] Dr. Leeanna Carlson Nitrite Ql (U) Negative Normal NEGATIVE [facility] Comment on above: Performed By: #### U A #### [facility] [address] [place] [address] Dr. Leeanna Carlson pH (U) 6.0 [pH] Normal 5-9 [facility] Comment on above: Performed By: #### U A #### [facility] [address] [place] [address] Dr. Leeanna Carlson SPEC GRAVITY <=1.005 Abnormal 1.005-<=1.025 [facility] [place] [facility] Comment on above: Performed By: #### U A #### [facility] [address] [place], [place] [address] Dr. Leeanna Carlson UA PROTEIN Negative Normal NEGATIVE/ TRACE [facility] Comment on above: Performed By: #### U A #### [facility] [address] [place], [place] [address] Dr. Leeanna Carlson Urobilinogen Qn (U) 0.2 {Marito'U}/dL Normal 0.2 - 1. 0 [facility] Comment on above: Performed By: #### U A #### [facility] [address] [place], [place] [address] Dr. Leeanna Carlson US KIDNEYSon 06-14-2022 US [...] ARTHUR ONTIVEROS Date: 2022-06-14 14:27 Normal [facility] XR KUB 1 VIEWon 06-14-2022 XR [...] by: GIOVANNY ZAYAS Date: 2022-06-14 13:33 Normal [facility] Creatinine (Bld) [Mass/Vol]O rdered By: Dave Solorio on 04-27-2022 Creatinine [Mass/Vol] 1.2 mg/dL 0.6-1.3 [facility] Comment on above: ER/ESD physician is notified/shown all ISTAT results.Critical values may be confirmed by laboratory testing ifdeemed necessary by ER attending doctor. No Panel InformationOrdered By: Dave Solorio on 04-27-2022 POC Estimated GFR > 60 [facility] Comment on above: GFR estimated refere nce range: According to KDOQI guidelines, <60 ml/min/1.73m2 is sufficient to diagnose a patient with chronic kidney disease. POC Estimated GFR Non- Amer > 60 [facility] XR KUB 1 VIEWon 04-19-2022 [...] by: GIOVANNY ZAYAS Date: 2022-04-19 16:59 Normal [facility] XR KUB 1 VIEWon 10-06-2021 XR KUB [...] JOHANNA MARIE Date: 2021-10-06 16:08 Normal [facility] CBC AUTO DIFFon 09-28-2021 BASO # 0.0 103/ul Normal 0.0-0.1 [facility] Comment on above: Performed By: #### C BC ####[facility] [address] [id number]. Leeanna Carlson Basophils/100 WBC (Bld) 0.8 % Normal 0.2-2.0 [facility] Comment on above: Performed By: #### C BC ####[facility] [address] [address]Dr. Leeanna Carlson EO # 0.1 103/ul Normal 0.0-0.7 [facility] Comment on above: Performed By: #### C BC ####[facility] [address] [address]Dr. Leeanna Carlson Eosinophils/100 WBC (Bld) 2.0 % Normal 0.9-7.0 [facility] Comment on above: Performed By: #### C BC ####[facility] [address] [place], [place] [address]Dr. Leeanna Carlson Erythrocyte distribution width (RBC) [Ratio] 13.2 % Normal 11.0-15.0 [facility] Comment on above: Performed By: #### C BC ####[facility] [address] [place], [place] [address]Dr. Leeanna Carlson Hematocrit (Bld) [Volume fraction] 47.8 % Normal 42.0-54.0 [facility] Comment on above: Performed By: #### C BC ####[facility] [address] [id number]. Leeanna Carlson Hemoglobin (Bld) [Mass/Vol] 15.8 g/dL Normal 14.0-18.0 [facility] Comment on above: Performed By: #### C BC ####[facility] [address] [place], [place] [address]Dr. Leeanna Carlson IG # 0.01 10e3/ul Normal 0.00-0.03 [facility] Comment on above: Performed By: #### C BC ####[facility] [address] [address]Dr. Leeanna Carlson IG % 0.2 % Normal 0.0-0.5 [facility] Comment on above: Performed By: #### C BC ####[facility] [address] [address]Dr. Leeanna Carlson LYMPH # 1.4 103/ul Normal 1.2-3.8 [facility] Comment on above: Performed By: #### C BC ####[facility] [address] [address]Dr. Leeanna Carlson Lymphocytes/100 WBC (Bld) 29.1 % Normal 20.5-60.0 [facility] Comment on above: Performed By: #### C BC ####[facility] [address] [place], [place] [address]Dr. Leeanna Carlson MANUAL DIFF REQ NO Normal [facility] [place] [facility] Comment on above: Performed By: #### C BC ####[facility] [address] [address]Dr. Leeanna Carlson MCH (RBC) [Entitic mass] 28.4 pg Normal 25.9-34.0 [facility] Comment on above: Performed By: #### C BC ####[facility] [address] [address]Dr. Leeanna Carlson MCHC (RBC) [Mass/Vol] 33.1 g/dL Normal 29.9-35.2 [facility] Comment on above: Performed By: #### C BC ####[facility] [address] [place], [place] [address]Dr. Leeanna Carlson MCV (RBC) [Entitic vol] 86.0 fL Normal 80.0-94.0 [facility] Comment on above: Performed By: #### C BC ####[facility] [address] [place], [place] [address]Dr. Leeanna Carlson MONO # 0.5 103/ul Normal 0.3-0.8 [facility] Comment on above: Performed By: #### C BC ####[facility] [address] [id number]. Leeanna Carlson Monocytes/100 WBC (Bld) 9.9 % Normal 1.7-12.0 [facility] Comment on above: Performed By: #### C BC ####[facility] [address] [id number]. Leeanna Carlson NEUT # 2.9 103/ul Normal 1.4-6.5 [facility] Comment on above: Performed By: #### C BC ####[facility] [address] [id number]. Leeanna Carlson Neutrophils/100 WBC (Bld) 58.0 % Normal 43.0-75.0 [facility] Comment on above: Performed By: #### C BC ####[facility] [address] [address]Dr. Leeanna Carlson Platelet mean volume (Bld) [Entitic vol] 10.3 fL Normal 9.5-13.5 [facility] Comment on above: Performed By: #### C BC ####[facility] [address] [address]Dr. Leeanna Carlson PLT 187 103/ul Normal 150-450 [facility] Comment on above: Performed By: #### C BC ####[facility] [address] [id number]. Leeanna Carlson RBC 5.56 106/ul Normal 4.70-6.10 [facility] Comment on above: Performed By: #### C BC ####[facility] [address] [id number]. Leeanna Carlson WBC 4.9 103/ul Normal 4.0-11.0 [facility] Comment on above: Performed By: #### C BC ####[facility] [address] [id number] Leeanna Carlson PROF CHEM 8 (BAS METB)on Anion gap [Moles/Vol] 8.9 mmol/L Normal [facility] Comment on above: Performed By: #### B MP ####[facility] [address] [address]Dr. Leeanna Carlson Calcium [Mass/Vol] 9.1 mg/dL Normal 8.5-10.1 [facility] Comment on above: Performed By: #### B MP ####[facility] [address] [address]Dr. Leeanna Carlson Chloride [Moles/Vol] 105 mmol/L Normal 98-107 [facility] Comment on above: Performed By: #### B MP ####[facility] [address] [address]Dr. Leeanna Carlson CO2 [Moles/Vol] 27.8 mmol/L Normal 21.0-32.0 [facility] Comment on above: Performed By: #### B MP ####[facility] [address] [place], [place] [address]Dr. Leeanna Carlson Creatinine [Mass/Vol] 1.18 mg/dL Normal 0.70-1.30 [facility] Comment on above: Performed By: #### B MP ####[facility] [address] [place], [place] [address]Dr. Leeanna Carlson EGFR-AF TAJIK >60 Normal >=60 [facility] Comment on above: Performed By: #### B MP ####[facility] [address] [place], [place] [address]Dr. Leeanna Carlson EGFR-NON AF TAJIK >60 Normal >=60 [facility] Comment on above: Performed By: #### B MP ####[facility] [address] [address]Dr. Leeanna Carlson Glucose [Mass/Vol] 110 mg/dL Critically high 74-106 [facility] Comment on above: Performed By: #### B MP ####[facility] [address] [address]Dr. Leeanna Carlson Potassium [Moles/Vol] 4.7 mmol/L Normal 3.5-5.1 [facility] Comment on above: Performed By: #### B MP ####[facility] [address] [id number] Carlson Sodium [Moles/Vol] 137 mmol/L Normal 136-145 [facility] Comment on above: Performed By: #### B MP ####[facility] [address] [place], [place] [address]DfCassidy Carlson Urea nitrogen [Mass/Vol] 22.0 mg/dL Critically high 7.0-18.0 [facility] Comment on above: Performed By: #### B MP ####[facility] [address] [address]Dr. Leeanna Carlson Urea nitrogen/Creatinine [Mass ratio] 18.6 mg/mg Normal [facility] Comment on above: Performed By: #### B MP ####[facility] [address] [address]DrCassidy Carlson PROTIMEon 09-28-2021 INR Coag (PPP) [Relative time] 0.98 {INR} Normal [facility] Comment on above: Performed By: #### P TT, PT #### [facility] [address] [place] [address] Dr. Leeanna Carlson INR GUIDELINES SEE BELOW Normal [facility] Comment on above: Result Comment: AIRAM RED INR: 2.0 - 3.0 CONDITIONS NOT LISTED BELOW 2.5 - 3.5 FOR PROSTHETIC HEART VALVE REPLACEMENT 2.5 - 3.5 RECURRENT THROMBOSIS Performed By: #### P TT, PT #### [facility] [address] [address] [address] Leeanna Carlson PT Coag (PPP) [Time] 10.6 s Normal 9.0-11.6 [facility] Comment on above: Performed By: #### P TT, PT #### [facility] [address] [address] [address] Leeanna Carlson PTTon 09-28-2021 aPTT Coag (Bld) [Time] 29.3 s Normal 22.3-36.2 Th [facility] Comment on above: Performed By: #### P TT, PT #### [facility] [address] [place], [place] [address] Dr. Leeanna Carlson [facility] Metabolic Pane puneet 06-03-2021 Albumin [Mass/Vol] 4.6 g/dL Normal 3.6-5.1 [facility] Comment on above: Performed By: #### V ITD, LIPD, CMP #### [facility] [address] [place], [place] [id number] Albumin/Globulin [Mass ratio] 1.9 {ratio} Normal 1.0-2.5 [facility] Comment on above: Performed By: #### V ITD, LIPD, CMP #### [facility] [address] [place], [place] [id number] ALP [Catalytic activity/Vol] 85 U/L Normal 40-129 [facility] Comment on above: Performed By: #### V ITD, LIPD, CMP #### [facility] [address] [place], [place] [id number] ALT [Catalytic activity/Vol] 28 U/L Normal 9-46 [facility] Comment on above: Result Comment: 03/02 Female reference range changed. Performed By: #### V ITD, LIPD, CMP #### [facility] [address] [id number] Anion gap [Moles/Vol] 18 mmol/L Normal 12-20 [facility] Comment on above: Result Comment: Effe ctive 04/07/2019 reference range changed. Performed By: #### V ITD, LIPD, CMP #### [facility] [address] [place], [place] [id number] AST [Catalytic activity/Vol] 25 U/L Normal 10-40 [facility] Comment on above: Performed By: #### V ITD, LIPD, CMP #### [facility] [address] [id number] Bilirubin [Mass/Vol] 0.65 mg/dL Normal 0.30-1.20 [facility] [place] [facility] Comment on above: Performed By: #### V ITD, LIPD, CMP #### [facility] [address] [id number] BUN/CREA 24 Ratio High 6-22 [facility] Comment on above: Performed By: #### V ITD, LIPD, CMP #### [facility] [address] [place], [place] [id number] Calcium [Mass/Vol] 9.4 mg/dL Normal 8.6-10.2 [facility] Comment on above: Performed By: #### V ITD, LIPD, CMP #### [facility] [address] [place], [place] [id number] Chloride [Moles/Vol] 105 mmol/L Normal 98-107 [facility] [place] [facility] Comment on above: Performed By: #### V ITD, LIPD, CMP #### [facility] [address] [place], [place] [id number] CO2 [Moles/Vol] 23 mmol/L Normal 20-31 [facility] Comment on above: Performed By: #### V ITD, LIPD, CMP #### [facility] [address] [id number] Creatinine [Mass/Vol] 1.1 mg/dL Normal 0.7-1.4 [facility] Comment on above: Performed By: #### V ITD, LIPD, CMP #### [facility] [address] [id number] eGFRAA 86 mL/min/1.73m2 Normal >60 [facility] Comment on above: Performed By: #### V ITD, LIPD, CMP #### [facility] [address] [place], [place] [id number] eGFRNAA 71 mL/min/1.73m2 Normal >60 [facility] Specialist Comment on above: Performed By: #### V ITD, LIPD, CMP #### [facility] [address] [place], [place] [id number] Globulin (S) [Mass/Vol] 2.4 g/dL Normal 1.9-3.7 [facility] Specialist Comment on above: Performed By: #### V ITD, LIPD, CMP #### [facility] [address] [place] [id number] Glucose [Mass/Vol] 97 mg/dL Normal 65-99 [facility] Healthcare Recruiter Comment on above: Result Comment: For FASTING Glucose --- ADA reference ranges: Normal 65-99 mg/dl Prediabetes 100-125 Diabetes >/= 126 Performed By: #### V LAINE POOL, CMP #### [facility] [address] [place], [place] [id number] Potassium [Moles/Vol] 4.5 mmol/L Normal 3.5-5.5 [facility] Specialist Comment on above: Performed By: #### V LAINE POOL, CMP #### [facility] [address] [place], [place] [id number] Protein [Mass/Vol] 7.0 g/dL Normal 6.1-8.1 [facility] Healthcare Recruiter Comment on above: Performed By: #### V LAINE POOL, CMP #### [facility] [address] [place], [place] [id number] Sodium [Moles/Vol] 141 mmol/L Normal 135-146 [facility] Healthcare Recruiter Comment on above: Performed By: #### V LAINE POOL, CMP #### [facility] [address] [place], [place] [id number] Urea nitrogen [Mass/Vol] 26 mg/dL High 7-25 [facility] Healthcare Recruiter Comment on above: Performed By: #### V LAINE POOL, CMP #### [facility] [address] [place], [place] [id number] Hemoglobin A1Con 06-03-2021 EAG 125.50 Normal [facility] Healthcare Recruiter Comment on above: Performed By: #### A 1C #### [facility] [address] [place], [place] [id number] HbA1c (Bld) [Mass fraction] 6.0 % Normal 4.0-6.0 [facility] Healthcare Recruiter Comment on above: Performed By: #### A 1C #### [facility] [address] [place], [place] [id number] Lipid Panelon 06-03-2021 Cholesterol [Mass/Vol] 232 mg/dL High 125-200 [facility] Comment on above: Result Comment: Low risk < 200mg/dL Borderline risk 201-239 mg/dl High risk > or equal to 240 Performed By: #### V ITD, LIPD, CMP #### [facility] [address] [place], [place] [id number] Cholesterol in HDL [Mass/Vol] 68 mg/dL Normal >40 [facility] Specialist Comment on above: Result Comment: High Cardiovascular Risk HDL <40 mg/dL Low Cardiovascular Risk HDL > or equal to 60 mg/dl Performed By: #### V ITD, LIPD, CMP #### [facility] [address] [place], [place] [id number] Cholesterol in LDL [Mass/Vol] 153 mg/dL Normal [facility] Specialist Comment on above: Result Comment: LDL ATP III CLASSIFICATION LDL less than 100 mg/dl Optimal LDL 100-129 mg/dl Near or above optimal LDL 130-159 Borderline high LDL 160-189 High LDL greater than 189 mg/dl Very High Performed By: #### V ITD, LIPD, CMP #### [facility] [address] [place], [place] [id number] Cholesterol in VLDL [Mass/Vol] 11 mg/dL Normal [facility] Specialist Comment on above: Performed By: #### V ITD, LIPD, CMP #### [facility] [address], [place] [id number] Cholesterol.total/Chol esterol in HDL [Mass ratio] 3 {ratio} Normal [facility] Specialist Comment on above: Performed By: #### V ITD, LIPD, CMP #### [facility] [address] [place], [place] [id number] Triglyceride [Mass/Vol] 55 mg/dL Normal 30-150 [facility] Healthcare Recruiter Comment on above: Result Comment: TRIG ATPIII CLASSIFICATIONS TRIG less than 150 mg/dl Normal TRIG 150-199 mg/dl Borderline High TRIG 200-500 mg/dl High TRIG greather than 500 mg/dl Very High Performed By: #### V ITD, LIPD, CMP #### [facility] [address], [place] [id number] Prostatic Specific Antigen, Totalon 06-03-2021 TPSA 5.030 ng/mL High <4.000 [facility] Specialist Comment on above: Result Comment: PSA Test Method: ECLIA/Maira e 601 Performed By: #### P SA #### [facility] [address], [place] [id number] Vitamin D 25-OHon 06-03-2021 VIT D 25 OH 57 ng/ml Normal >29 [facility] Healthcare Recruiter Comment on above: Result Comment: Amanda min D Status Deficiency <20 ng/mL Insufficiency 20-29 ng/mL Optimal 30-100 ng/mL Possible Toxicity >=150 ng/mL Performed By: #### V ITD, LIPD, CMP #### [facility] [address] [facility] [place] [id number] MRI PROSTATE WO/W IVCONon MRI PROSTATE WO/W [...] prostate and pelvis performed on a 3T ([employer]) scanner utilizing phase pelvic coil. Sequences obtained: Multiplanar T2-WI with small bsxhx-wk-ifow; Axial diffusion weighted images with multiple B-values and creation of ADC-maps; Dynamic contrast enhanced T1-weighted images through the prostate were also obtained before, during and after the administration of intravenous gadolinium. Prostate dimensions and volume were obtained using a semi-automated software (BookmateD). CONTRAST: IV: 17 cc of (Dotarem). RESULT: [...] Clinically significant cancer is highly likely (V.05.2018) Digital Asset Manager: PSCB Transcribe Date/Time: Mar 10 2019 1:33P Dictated by : DAVE JONES MD This examination was interpreted and the report reviewed and electronically signed by: DAVE JONES MD on Mar 10 2019 2:15PM EST [id number] Normal [facility] PROGRESSon 03-10-2019 PROGRESS HNO ID: [id number] Author: Hallie Manning) QUIN Saavedra Service: Radiology [...] March 10, 2019 TIME: 12:15 PM Normal [facility] PROGRESS HNO ID: [id number] Author: Rosina Ferrari (Tech) Service: Radiology Author Type: Spot Welder Line Type: Progress Notes Filed: 03/10/2019 12:54 PM [...] Ferrari March 10, 2019 12:54 PM Normal [facility] Vital Signs Date Time Vital Sign Value Performing Clinician Jesse cooper 01-07-2024 11:24-0400 Blood Pressure Location Sharla MONTIEL [facility] 01-07-2024 11:24-0400 Diastolic blood pressure 78 mm[Hg] Sharla MONTIEL [facility] 01-07-2024 11:24-0400 Heart rate 62 /min Sharla MONTIEL [facility] 01-07-2024 11:24-0400 Systolic blood pressure 136 mm[Hg] Sharla MONTIEL [facility] 07-02-2023 09:42-0400 Blood Pressure Location Sharla MONTIEL [facility] 07-02-2023 09:42-0400 Body temperature 98.6 [degF] Sharla MONTIEL [facility] 07-02-2023 09:42-0400 Diastolic blood pressure 84 mm[Hg] Sharla MONTIEL [facility] 07-02-2023 09:42-0400 Heart rate 75 /min Sharla MONTIEL [facility] 07-02-2023 09:42-0400 Respiratory rate 17 /min Sharla MONTIEL [facility] 07-02-2023 09:42-0400 Systolic blood pressure 137 mm[Hg] Sharla MONTIEL [facility] 05-23-2023 13:45-0500 Body height 177.8 cm Jeana Parra DO Work Phone: [facility] 05-23-2023 13:45-0500 Body mass index (BMI) [Ratio] 28.5 kg/m2 Jeana Parra DO Work Phone: [facility] [employer] [facility] 05-23-2023 13:45-0500 Body weight 90.08 kg Jeana Parra DO Work Phone: [facility] [employer] [facility] 05-23-2023 13:45-0500 Diastolic blood pressure 85 mm[Hg] Jeana Parra DO Work Phone: [facility] [employer] [facility] 05-23-2023 13:45-0500 Heart rate 63 /min Jeana Parra DO Work Phone: [facility] 05-23-2023 13:45-0500 Systolic blood pressure 134 mm[Hg] Jeana Parra DO Work Phone: [facility] 04-24-2023 13:03-0500 Body mass index (BMI) [Ratio] 29.1 kg/m2 Keerthi Gill MD Work Phone: [facility] 04-24-2023 13:03-0500 Body temperature 97.7 [degF] Keerthi Gill MD Work Phone: [facility] 04-24-2023 13:03-0500 Body weight 91.99 kg Keerthi Gill MD Work Phone: [facility] 04-24-2023 13:03-0500 Diastolic blood pressure 78 mm[Hg] Keerthi Gill MD Work Phone: [facility] 04-24-2023 13:03-0500 Heart rate 71 /min Keerthi Gill MD Work Phone: [facility] 04-24-2023 13:03-0500 SaO2% (BldA) [Mass fraction] 97 % Keerthi Gill MD Work Phone: [facility] 04-24-2023 13:03-0500 Systolic blood pressure 134 mm[Hg] Keerthi Gill MD Work Phone: [facility] 10-09-2022 08:31-0400 Blood Pressure Location Sharla MONTIEL [facility] 10-09-2022 08:31-0400 Diastolic blood pressure 74 mm[Hg] Sharla MONTIEL [facility] 10-09-2022 08:31-0400 Heart rate 80 /min Sharla MONTIEL [facility] 10-09-2022 08:31-0400 Respiratory rate 16 /min Sharla MONTIEL [facility] 10-09-2022 08:31-0400 Systolic blood pressure 130 mm[Hg] Sharla MONTIEL [facility] 05-01-2022 09:15-0500 Blood Pressure Location Sharla MONTIEL [facility] 05-01-2022 09:15-0500 Diastolic blood pressure 84 mm[Hg] Sharla MONTIEL [facility] 05-01-2022 09:15-0500 Heart rate 75 /min Sharla MONTIEL [facility] 05-01-2022 09:15-0500 Respiratory rate 16 /min Sharla MONTIEL [facility] 05-01-2022 09:15-0500 Systolic blood pressure 129 mm[Hg] Sharla MONTIEL [facility] 04-27-2022 07:35-0500 Body height 177.8 cm DO Monica Cori Work Phone: [facility] 04-27-2022 07:35-0500 Body weight 88.45 kg DO Monica Cori Work Phone: [facility] 04-19-2022 13:20-0500 Blood Pressure Location DONALD ANDREARY [facility] 04-19-2022 13:20-0500 Diastolic blood pressure 74 mm[Hg] DONALD LEOLA [facility] 04-19-2022 13:20-0500 Heart rate 72 /min DONALD LEOLA [facility] 04-19-2022 13:20-0500 Respiratory rate 16 /min DONALD LEOLA [facility] 04-19-2022 13:20-0500 Systolic blood pressure 126 mm[Hg] DONALD LEOLA [facility] 10-28-2021 10:27-0400 Blood Pressure Location Sharla MONTIEL [facility] 10-28-2021 10:27-0400 Diastolic blood pressure 81 mm[Hg] Sharla MONTIEL [facility] 10-28-2021 10:27-0400 Heart rate 54 /min Sharla MONTIEL [facility] 10-28-2021 10:27-0400 Respiratory rate 16 /min Sharla MONTIEL [facility] 10-28-2021 10:27-0400 Systolic blood pressure 134 mm[Hg] [facility] 08-17-2021 10:03-0400 Blood Pressure Location Sharla MONTIEL [facility] 08-17-2021 10:03-0400 Diastolic blood pressure 87 mm[Hg] Sharla MONTIEL [facility] 08-17-2021 10:03-0400 Heart rate 58 /min Sharla MONTIEL [facility] 08-17-2021 10:03-0400 Systolic blood pressure 134 mm[Hg] Sharla MONTIEL [facility] Encounters Encounter Date Encounter Type Care Provider Facility Start: 01-09-2025 ambulatory Sharla Mci ty:KATE MoralesChauncey Start: 01-07-2024 End: 01-07-2024 ambulatory Sharla MONTIEL [facility]: [facility] Start: 01-07-2024 End: 01-07-2024 Patient encounter procedure [facility] Start: 07-31-2023 End: 07-31-2023 ambulatory [facility] Start: 07-30-2023 End: 07-30-2023 ambulatory NON STAFF Facility:[facility] Start: 07-30-2023 End: 07-30-2023 ambulatory NON STAFF [facility] Work Phone: Start: 07-30-2023 End: 07-30-2023 Patient encounter procedure MD Sharla Montiel Work Phone: [facility] [place] Work Phone: Start: 07-02-2023 End: 07-02-2023 ambulatory Sharla MONTIEL Facility:[facility] Start: 07-02-2023 End: 07-02-2023 Patient encounter procedure Sharla MONTIEL [facility] Start: 05-23-2023 End: 05-23-2023 ambulatory JEANA PARRA [facility] Start: 05-23-2023 End: 05-23-2023 Office outpatient visit 15 minutes Jeana Parra DO Work Phone: [facility] Comment on above: Acute epididymitis ( Primary Dx); Non-recurrent unilateral inguinal hernia without obstruction or gangrene; Epididymitis Start: 04-26-2023 End: 04-27-2023 ambulatory [facility] Start: 04-24-2023 End: 04-24-2023 ambulatory [facility] Start: 04-24-2023 End: 04-24-2023 Office outpatient visit 25 minutes Keerthi Gill MD Work Phone: [facility] Comment on above: Non-recurrent unilat eral inguinal hernia without obstruction or gangrene (Primary Dx); Flank pain Start: 04-06-2023 End: 04-06-2023 ambulatory BRITT REYES Not Available Start: 04-04-2023 ambulatory Sarah Stone CMM INSPECTOR [place] Quality - Care Coordination Team Start: 04-04-2023 Coordination of care plan Sarah C hekaren CMM INSPECTOR [place] Quality - Care Coordination Team Start: 03-22-2023 End: 03-22-2023 ambulatory [facility] Start: 01-08-2023 End: 01-08-2023 ambulatory Sharla MONTIEL Facility:[facility] Start: 10-09-2022 End: 10-09-2022 Patient encounter procedure Sharla MONTIEL [facility] Start: 09-18-2022 End: 09-18-2022 Patient encounter procedure Sharla MONTIEL [facility] Start: 08-29-2022 End: 08-29-2022 Patient encounter procedure Sharla MONTIEL [facility] Start: 08-25-2022 End: 08-25-[address] DOCTOR HALEY Facility:[facility] Start: 08-17-2022 End: 08-18-[address] DOCTOR HALEY Facility:[facility] Start: 08-12-2022 Encounter for preprocedural cardiovascular examination DR SHARLA MONTIEL . [facility] Start: 08-12-2022 Encounter for preprocedural laboratory examination DR SHARLA MONTIEL . [facility] Start: 08-09-2022 End: 08-10-[address] SHARLA MONTIEL . Facility:[facility] Start: 08-09-2022 End: 08-10-2022 Encounter for preprocedural cardiovascular examination DR SHARLA MONTIEL . Facility:[facility] Start: 07-28-2022 End: 07-28-[address] DOCTOR HALEY Facility:[facility] Start: 06-14-2022 End: 06-15-[address] GIOVANNY ZAYAS Facility:[facility] Start: 06-14-2022 End: 06-14-2022 Patient encounter procedure DONALD BHAGAT [facility] Start: 05-01-2022 End: 05-01-2022 Patient encounter procedure Sharla MONTIEL [facility] Start: 04-27-2022 End: 04-27-2022 ambulatory DO Monica G Cori Work Phone: [facility] Work Phone: Start: 04-27-2022 End: 04-27-2022 Patient encounter procedure DO Monica Cori Work Phone: [facility] [place] Work Phone: Start: 04-19-2022 End: 04-20-[address] GIOVANNY ZAYAS Facility:[facility] Start: 04-19-2022 End: 04-19-2022 Patient encounter procedure DONALD BHAGAT [facility] Start: 10-28-2021 End: 10-28-2021 Lab Drop off Sharla MONTIEL [facility] Start: 10-28-2021 End: 10-28-2021 Patient encounter procedure [facility] MONTIEL [facility] Start: 10-06-2021 End: 10-06-[address] SHARLA MONTIEL . Facility:[facility] Start: 09-28-2021 End: 09-29-[address] SHARLA MONTIEL . Facility:[facility] Start: 08-17-2021 End: 08-17-2021 Patient encounter procedure Sharla MONTIEL [facility] Procedures Date Procedure Procedure Detail Performing Clinician Start: 07-30-2023 MR prostate wo/w vianney Montiel Work Phone: Start: 03-22-2023 Adult depression scr eening assessment Sarah Stone CMM INSPECTOR Start: 11-27-2022 Colonoscopy Sarah ventura CMM INSPECTOR Start: 08-29-2022 Cystoscopic removal of ureteric stent [...] for malign ant neoplasm of colon Colonoscopy [facility] Start: 06-27-2024 DTaP,Tdap and Td Vac cines (2 - Td or Tdap) DTaP,Tdap and Td Vaccines (2 - Td or Tdap) [facility] Start: 05-23-2024 Adult BMI Screening [facility] Start: 05-23-2024 Tobacco Screening Tobacco Screening [facility] Start: 04-24-2024 Adult BMI Screening Adult BMI Screen ing [facility] Start: 04-24-2024 Tobacco Screening Tobacco Screening [facility] Start: 04-04-2024 Fall Risk Screening Fall Risk Screen ing [facility] Start: 03-22-2024 Adult BMI Screening Adult BMI Screen ing [facility] Start: 03-22-2024 Depression Screening Depression Scre ening [facility] Start: 03-22-2024 Fall Risk Screening Fall Risk Screen ing [facility] Start: 03-22-2024 Tobacco Screening Tobacco Screening [facility] Start: 09-25-2023 End: 09-25-2023 Patient encounter procedure 09/25/2023 10:15 AM EDT Office Visit [facility] [address] [place] [phone] Keerthi Gill MD [address] [place] [phone] [facility] Start: 05-02-2023 End: 05-02-2023 Patient encounter procedure 05/02/2023 9:15 AM EST Office Visit [facility] [address] [place] [phone] Jeana Parra DO [address] [place], [place] [phone] [facility] Start: 04-26-2023 End: 04-26-2023 Patient encounter procedure [facility] Start: 04-24-2023 End: 04-24-2024 US Retroperitoneum Ultrasound retroperitoneal complete Imaging Routine Flank pain Expected: 04/24/2023, Expires: 04/24/2024 [facility] Comment on above: Expected: 04/24/2023 , Expires: 04/24/2024 Start: 04-24-2023 End: 04-24-2024 US Scrotum and testicle Ultrasound scrotum Imaging Routine Non-recurrent unilateral inguinal hernia without obstruction or gangrene Expected: 04/24/2023, Expires: 04/24/2024 [facility] Work Phone: Comment on above: Expected: 04/24/2023 , Expires: 04/24/2024 Start: 12-01-2022 COVID-19 Vaccine ( season) COVID-19 Vaccine () [facility] Start: 12-01-2022 Influenza vaccination Influenza Vacc ine [facility] Start: 09-23-2007 Administration of varicella zoster vaccine Zoster (Shingles) Vaccine (1 of 2) [facility] Start: 09-23-1975 Adult BMI Follow Up Plan Adult BMI F ollow Up Plan [facility] Start: 1955 Medicare Annual Well ness Visit Medicare Annual Wellness Visit [facility] Immunizations Immunization Date Immunization Notes Care Provider Fa nikole 03-03-2022 SARS-CoV-2 (COVID-19 ) [id number] Sharla MONTIEL [facility] 08-20-2021 SARS-CoV-2 (COVID-19 ) mRNA-1273 vaccine Sharla MONTIEL [facility] 03-02-2021 SARS-CoV-2 (COVID-19 ) mRNA-1273 vaccine Sharla MONTIEL [facility] 02-20-2021 SARS-CoV-2 (COVID-19 ) mRNA-1273 vaccine Sharla [employer] [facility] 01-23-2021 SARS-CoV-2 (COVID-19 ) mRNA-1273 vaccine Sharla MONTIEL [facility] 06-27-2014 tetanus toxoid, redu juventino diphtheria toxoid, and acellular pertussis vaccine, adsorbed Sharla MONTIEL [facility] [place] Payers Date Payer Category Payer Self-pay [id number] 2023 Medicare [id number] 2014 Unknown [place]/TRUST [id number] 2014-Present [phone] [address] [place] [address] [id number] 1959 Unknown [id number] 1957 Unknown [id number] 2.16.840.1.148065.3.579.2.593 1957 Unknown [id number] 2.16.840.1.868849.3.579.2.593 1957 Unknown [id number] 2.16.840.1.285469.3.579.2.593 1957 Unknown [id number] 2.16.840.1.066475.3.579.2.593 1957 Unknown [id number] 2.16.840.1.875145.3.579.2.593 1957 Unknown [id number] 2.16.840.1.000306.3.579.2.593 1957 Unknown [id number] 2.16.840.1.660274.3.579.2.593 1957 Unknown [id number] 2.16.840.1.079063.3.579.2.593 1957 Unknown [id number] 2.16.840.1.736004.3.579.2.125 9 1957 Unknown [id number] 2.16.840.1.416087.3.579.2.128 6 1957 Unknown [id number] 2.16.840.1.895225.3.579.2.128 6 1957 Unknown [id number] 2.16.840.1.087336.3.579.2.128 6 1957 Unknown [id number] 2.16.840.1.953241.3.579.2.128 6 1957 Unknown [id number] 2.16.840.1.817767.3.579.2.128 6 1957 Unknown [id number] 2.16.840.1.537135.3.579.2.128 6 1957 Unknown [id number] 2.16.840.1.408737.3.579.2.727 1957 Unknown [id number] 2.16.840.1.966171.3.579.2.727 1957 Unknown [id number] 2.16.840.1.716680.3.579.2.727 1957 Unknown [id number] 2.16.840.1.392061.3.579.2.727 Medicare Medicare-OP No Part B [id number] Unknown [id number] 2.16.840.1.673658.3.579.2.531 Social History Date Type Detail Facility Start: 08-17-2021 End: 01-07-2024 Tobacco smoking status Never smoked tobacco (finding) [facility] Start: 04-19-2022 Tobacco smoking status Never [facility] [employer] Start: 04-23-2020 End: 03-22-2023 Sex Assigned At Male [facility] Start: 1955 Sex Assigned At Male [facility] Start: 07-17-2022 Tobacco use and exposure Smokeless tobacco non-user [facility] Start: 03-22-2023 End: 05-23-2023 Alcohol intake Lifetime non-drinker (finding) [facility] Start: 04-23-2020 End: 03-22-2023 History of Social function [facility] Start: 1955 Sex Assigned At Not on file P [facility] Functional Status Date Assessment Result Facility 01-07-2024 Functional Status N/A [facility] 07-02-2023 Functional Status N/A [facility] 10-09-2022 Functional Status N/A [facility] 05-01-2022 Functional Status N/A [facility] 04-19-2022 Functional Status N/A [facility] 10-28-2021 Functional Status N/A [facility] Clinical Notes 08-16-2021 to 01-07-2024 Jeana Parra, - 05/23/2023 1:45 PM Epi Gill MD - 04/24/2023 1:00 PM Jurgen Stone CMA - 04/04/2023 12:06 PM EST Note Date & Type Note Facility 01-07-2024 Hospital Discharge instructions Patient Education 01/07/2024 12:32:25 Prostate Cancer Screening Prostate Cancer Screening Prostate [...] treatment? Where to find more information [employer]: www.cancer.org [employer]: www.auanet.org Contact a health care [...] provider. Document Revised: 09/12/2021 Document Reviewed: 09/12/2021 Elsevier Patient Education 2023 [employer]. Follow Up Care 07/02/2023 10:58:48 With:SOFIYA MAGANA, Sharla Layton, URL Address: [facility] [address] [place] [phone] [phone] When: Unknown Comments:1 yr w/ PSA [facility] 01-07-2024 Note Patient Education Oncology Prostate Cancer Screening Prostate [...] Where to find more information ? The [place] [employer]: www.cancer.org ? [place] [employer]: www.auanet.org Contact a health care [...] bladder and in front of the rectum. (more content not included)... [facility] 07-02-2023 Hospital Discharge instructions Patient Education 07/02/2023 [...] treatment? Where to find more information [employer] [place] [employer]: www.cancer.org [place] [employer]: www.auanet.org Contact a health care [...] provider. Document Revised: 09/12/2021 Document Reviewed: 09/12/2021 [employer] Patient Education 2022 [employer]. Follow Up Care 01/08/2023 10:36:36 With:SOFIYA MAGANA, Sharla Layton, URL Address: [facility] [address] [place] [phone] When: Unknown Comments:6 mos w/ PSA [facility] 05-23-2023 History of Present illness Narrative Images from the original note were not included. [facility] [address] [facility] [phone] CONSULT NOTE Zander Ponce 67 y.o. CHIEF COMPLAINT Chief Complaint Patient presents with Hernia Unilateral inguinal hernia, referred by Dr. Jose Alfredo Fermin L Ventura is a 67-year-old male who presents with [...] and does not rest. 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 He is very [...] Performed by Jeana Parra DO at [facility] COLONOSCOPY N/A 01/07/2018 Performed by Jeana Parra DO at [facility] FINGER SURGERY Left LEFT THUMB TONSILLECTOMY [...] patient/family/caregiver Referring and communicating with other health care trainer No primary diagnosis found. Jeana Parra DO This note was created with the assistance of a speech recognition program. While intending to generate a timely document that accurately reflects the content of the visit, no guarantee can be provided that every grammatical or spelling mistake has been or will be identified or corrected. Thank you for your understanding. documented in this encounter [facility] 04-24-2023 History of Present illness Narrative Images from the original note were not included. [address] [place] [phone] Patient: Zander Ponce Date of : 1955 [...] or gangrene - Ultrasound scrotum; Future - [facility] General Surgery - [facility] [place], [place]; Future 67-year-old gentleman who has recently had a colonoscopy completed by Dr. Potts. Will refer to Dr. Parra consideration for surgical intervention. KEERTHI GILL MD Family Medicine Physician [facility] Family Medicine / [facility] 04/24/23 This note was completed with voice recognition software. The document was reviewed for errors however some may still be present. Please do not hesitate to contact/[facility] the author to verify any questions/concerns. documented in this encounter [facility] [employer] [facility] 04-04-2023 History of Present illness Narrative Date of Call: April 04, 2023 Date of Positive Fall Risk Screenin03/22/2023 PT Referral Placed by PCP: No Result of Call: Answered Patient consent to enroll in Program: No Status of PT Referral: Patient declined Goals: Resources Provided: Additional Comments: Patient completed fall risk screening but declines program participation. documented in this encounter [facility] 10-09-2022 Hospital Discharge instructions Patient Education [...] Follow these instructions at home: Medicines Take ubyo-tke-qtyftbz and prescription medicines only as told by [...] or the blood stops without treatment. Take yzxa-xbc-xhpcbfv and prescription medicines only as told by your health care provider. Drink enough fluid to keep your urine pale yellow. This information is not intended to replace advice given to you by your health care provider. Make sure you discuss any questions you have with your health care provider. Document Revised: 11/17/2020 Document Reviewed: 11/17/2020 [employer] Patient Education 2022 [employer]. Follow Up Care 10/02/2022 10:55:28 With:SOFIYA MAGANA, Sharla Layton, URL Address: [facility] [address] [place] [phone] When:Within 3 Month(s) [facility] 08-29-2022 Hospital Discharge instructions Patient Education 08/29/2022 [...] including vitamins, herbs, eye drops, creams, and xlph-sij-phhnavg medicines. Any problems you or family members [...] provider tells you to take them. Taking djop-clc-qoullre medicines, vitamins, herbs, and supplements. Surgery safety [...] provider. Document Revised: 12/13/2021 Document Reviewed: 12/13/2021 [employer] Patient Education 2022 [employer]. Follow Up Care 08/24/2022 09:38:00 With:SOFIYA MAGANA, Sharla Layton, URL Address: [facility] [address] [place] [address]- Business (1) When: Unknown [facility] 05-01-2022 Hospital Discharge instructions Patient Education 05/01/2022 [...] include: ?Spinach. ?Rhubarb. ?Beets. ?Potato chips and samoan fries. ?Nuts. If you regularly take a diuretic medicine, make sure to eat at least 1 2 fruits or vegetables high in potassium each day. These include: ?Avocado. ?Banana. ?[place], prune, carrot, or tomato juice. ?Baked potato. [...] Casseroles. Pizza. Lasagna. Frozen meals. Potato chips. Irish fries. Summary You can reduce your risk [...] 07/14/2011 Document Revised: 07/09/2019 Document Reviewed: 02/27/2017 [employer] Patient Education 2020 [employer]. Follow Up Care 10/28/2021 11:17:16 With:SOFIYA MAGANA, Sharla Layton, URL Address: [facility] [address] [place] [address]- When: Unknown [facility] 04-19-2022 Hospital Discharge instructions Patient Education 04/19/2022 13:43:01 Kidney Stones, Smkl-hm-Rlyf Kidney Stones Kidney stones are rock-like masses [...] Follow these instructions at home: Medicines Take slhq-niq-zyomxns and prescription medicines only as told by [...] 09/04/2008 Document Revised: 08/05/2019 Document Reviewed: 08/05/2019 [employer] Patient Education 2019 [employer] Prospect. Follow Up Care 04/17/2022 09:12:19 With:SOFIYA MAGANA, Sharla Layton, URL Address: [address] [place] [phone]- When: Unknown [facility] 10-28-2021 Hospital Discharge instructions Patient Education [...] one of these risk factors: ?Being of -[place] descent. ?Having a family history of prostate [...] you: Are older than age 55. Are -[place]. Have a father, brother, or uncle who [...] 12/28/2017 Document Revised: 03/01/2018 Document Reviewed: 12/28/2017 [employer] Patient Education 2020 [employer]. Follow Up Care 08/17/2021 11:01:21 With:SOFIYA MAGANA, Sharla Layton, URL Address: [facility] [address] [place] [address]- [phone] When:Within 6 Month(s) Comments:w/ PSA and JOSE MARIAB [facility] 08-16-2021 Hospital Discharge instructions Patient Education [...] one of these risk factors: ?Being of -[place] descent. ?Having a family history of prostate [...] you: Are older than age 55. Are -[place]. Have a father, brother, or uncle who [...] 12/28/2017 Document Revised: 03/01/2018 Document Reviewed: 12/28/2017 [employer] Patient Education 2020 [employer] Follow Up Care 06/27/2021 09:31:40 With:Sharla MONTIEL MD, URL Address: [facility] [address], [place] [address]- When:10/17/2021 [facility] Evaluation + Plan note Future Appointments Appointment Date:10/28/2021 09:45:00 AM Scheduled Provider:Sharla MONTIEL [facility]O Office Visit Diagnostic Tests PendingPSA Total 08/17/21 [facility] Evaluation + Plan note Future Appointments Appointment Date:05/01/2022 09:15:00 AM Scheduled Provider:Sharla MONTIEL MD [facility] Type:URO Office Visit Diagnostic Tests PendingPSA Total 10/28/21 [facility] Evaluation + Plan note Future Appointments Appointment Date:05/01/2022 09:15:00 AM Scheduled Provider:Sharla MONTIEL MD [facility] App[facility] Type:URO Office Visit Diagnostic Tests PendingCalculi Analysis Urinary 10/28/21 [facility] Evaluation + Plan note Future Appointments Appointment Date:05/01/2022 09:15:00 AM Scheduled Provider:Sharla MONTIEL MD [facility] App[facility] Type:URO Office Visit [facility] Evaluation + Plan note Future Appointments Appointment Date:10/30/2022 10:30:00 AM Scheduled Provider:Sharla [facility]TIEL MD [facility] Type:[facility]O Office Visit Diagnostic Tests PendingPSA Total 05/01/22 [facility] Evaluation + Plan note Future Appointments Appointment Date:10/30/2022 10:30:00 AM Scheduled Provider:Sharla MONTIEL MD [facility]O [facility] Future Appointments Appointment Date:02/05/2023 11:30:00 AM Scheduled Provider:Sharla MONTIEL MD Location:[facility] Appointment Type:URO Office Visit [facility] Evaluation + Plan note Future Appointments Appointment Date:01/08/2023 09:30:00 AM Scheduled Provider:Sharla MONTIEL MD Location:[facility] Appointment Type:URO Office Visit [facility] Evaluation + Plan note Future Appointments Appointment Date:01/07/2024 11:15:00 AM Scheduled Provider:Sharla MONTIEL MD Location:[facility] Appointment Type:URO Office Visit Diagnostic Tests PendingPSA Total 07/02/23 [facility] note Future Appointments Appointment Date:01/09/2025 10:45:00 AM Scheduled Provider:Sharla MONTIEL MD Location:[facility] Appointment Type:URO Office Visit Diagnostic Tests PendingPSA Total 01/07/24 [facility] Evaluation note No assessment inform ation available [facility] Work Phone: Evaluation note Diagnosis Non-recurrent unilateral inguinal hernia without obstruction or gangrene- Primary Flank pain Abdominal pain, unspecified site documented [facility] this encounter [facility] Diagnosis Acute epididymitis- Primary Other orchitis, epididymitis, and epididymo-orchitis, without mention of abscess Non-recurrent unilateral inguinal hernia without obstruction or gangrene Epididymitis Unspecified orchitis and epididymitis documented in this encounter [facility] Narrative No data available for this section [facility] Hospital Discharge instructions No data available for this section [facility] filedocumented in this encounter [facility] filedocumented in this encounter [facility]Not on filedocumented in this encounter [facility] No data available for this section [facility] reason for referral (narrative)* Consultation (Routine) - Authorized Specialty Diagnoses / Procedures Referred By Kirstin abdalla Referred To Contact General Surgery Diagnoses Non-recurrent unilateral inguinal hernia without obstruction or gangrene Keerthi Gill MD [address] [place] [address] Jeana Parra DO [address] [place] [id number] Referral ID Status Reason Start Date Expiration Date Visits Requested Visits Authorized [id number] Authorized Specialty Services Required 04/24/2023 04/23/2024 1 1 [facility] Summary Purpose Family History No Family History Records FoundNo Family History Records FoundNo Family History Records FoundNo Family History Records FoundNo Family History Records Found No data available for this section No Family History Records FoundNo Family History Records FoundNo Family History Records Found No data available for this section Advance Directives Advance Directive Response Recorded Date/ Time Advance [...] section and content) DATE CREATED AUTHOR 03/10/2019 [facility] DATE CREATED AUTHOR AUTHOR'S ORGANIZ ATION 06/04/2021 [facility] dical Specialist DATE CREATED AUTHOR AUTHOR'S ORGANIZ ATION 09/10/2022 [facility] DATE CREATED AUTHOR AUTHOR'S ORGANIZ ATION 04/07/2023 [facility]ists EPIC DATE CREATED AUTHOR AUTHOR'S ORGANIZ ATION 04/29/2023 [facility] DATE CREATED AUTHOR AUTHOR'S ORGANIZ ATION 08/01/2023 [facility] DATE CREATED AUTHOR AUTHOR'S ORGANIZ ATION 08/08/2023 [facility] DATE CREATED AUTHOR AUTHOR'S ORGANIZ ATION 01/08/2024 [facility] Care Team (unrecognized sect ion and content) Personnel Name: MONICA PARHAM DO Team Status: Inactive Member Role Status Dates Krishna Solorio DO Attending Provider Active Monica Parham DO Primary Care Provider Active Team Status: Active Member Role Status Dates Monica Parham DO Primary Care Provider Active Torch Heater Relationship Specialty Start Date End Date Keerthi Gill MD [address] [place] [address] PCP - General Internal Medicine 03/22/23 Torch Heater Relationship Specialty Start Date End Date Keerthi Gill MD [address] [place] [address] PCP - General Internal Medicine 03/22/23 Torch Heater Relationship Specialty Start Date End Date Keerthi Gill MD [address] [place] [address] PCP - General Internal Medicine 03/22/23 Team [...] gangrene Keerthi Gill MD [address] [place] [address] Jeana Parra DO [address] [place] [address] Referral ID Status Reason Start Date Expiration Date Visits Requested Visits Authorized [id number] Pending Review Specialty Services Required 04/24/2023 04/23/2024 [...] BE BASED ON THE PRIMARY CLINICAL RECORDS. [facility]. provides no warranty or guarantee of the accuracy or completeness of information in this document.
== END 2024-01-23 13:14 | disposition home or self-care (01) ==
LOC: CT 13:13
PROVIDERS: PCP Urology; Visit Provider Urology
DX: N20.0 Calculus of kidney (principal); N40.1 Benign prostatic hyperplasia with lower urinary tract symptoms
CPT/HCPCS: 74176

== ENCOUNTER 2024-02-25 12:41 | Outpatient (OUT) | payer MEDICARE, BC, SELFPAY ==
--- NOTE | 2024-02-25 12:52 | ECG_ITS ---
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
--- NOTE | 2024-02-25 13:31 | P.GSHP_ITS ---
History of Present Illness History of Present Illness Chief complaint: right kidney stone Narrative: Patient presents for presurgical testing. The patient reports a long history of kidney stones with previous intervention. He states he is having right sided flank pain which is intermittent but denies nausea, vomiting, fever, hematuria, dysuria, or any other complaints. Review of Systems ROS Narrative REVIEW OF SYSTEMS: Negative except as stated in HPI, ten or more systems reviewed. Constitutional: No fever, chills, weakness ENT: No sore throat or epistaxis Cardiovascular: No edema, chest pain, palpitations, or activity intolerance Respiratory: No shortness of breath, cough, or wheezing Musculoskeletal: No joint pain or swelling Gastrointestinal: No abdominal pain, constipation, diarrhea, or vomiting Neurological: No numbness, tingling, weakness, or headache Psychiatric: No mood changes PFSH PFSH Medical History (Updated 02/25/24 @ 13:18 by Elaine Avina NP) Psoriasis ?L40.9 - Psoriasis, unspecified (ICD-10) DDD (degenerative disc disease) Postoperative nausea and vomiting ?R11.2 - Nausea with vomiting, unspecified (ICD-10) ?Z98.890 - Other specified postprocedural states (ICD-10) Weak urine stream ?R39.12 - Poor urinary stream (ICD-10) Gross hematuria ?R31.0 - Gross hematuria (ICD-10) Flank pain ?R10.9 - Unspecified abdominal pain (ICD-10) Epididymitis ?N45.1 - Epididymitis (ICD-10) Back pain ?M54.9 - Dorsalgia, unspecified (ICD-10) Nausea ?R11.0 - Nausea (ICD-10) BPH with obstruction/lower urinary tract symptoms ?N40.1 - Benign prostatic hyperplasia with lower urinary tract symptoms (ICD- 10) ?N13.8 - Other obstructive and reflux uropathy (ICD-10) Elevated PSA ?R97.20 - Elevated prostate specific antigen [PSA] (ICD-10) Kidney stones ?N20.0 - Calculus of kidney (ICD-10) Surgical History (Updated 02/25/24 @ 13:18 by Elaine Avina NP) H/O hand surgery ?Z98.890 - Other specified postprocedural states (ICD-10) Hx of tonsillectomy ?Z90.89 - Acquired absence of other organs (ICD-10) History of appendectomy ?Z90.49 - Acquired absence of other specified parts of digestive tract (ICD- 10) H/O prostate biopsy ?Z98.890 - Other specified postprocedural states (ICD-10) H/O cystoscopy ?Z98.890 - Other specified postprocedural states (ICD-10) S/P TURP ?Z90.79 - Acquired absence of other genital organ(s) (ICD-10) S/P cystoscopy with ureteral stent placement ?Z96.0 - Presence of urogenital implants (ICD-10) History of removal of ureteral stent ?Z98.890 - Other specified postprocedural states (ICD-10) Family History (Updated 02/25/24 @ 13:18 by Elaine Avnia NP) Other Cancer Family history of renal failure Social History (Updated 02/25/24 @ 13:15 by Elaine Avina NP) Within the past year, how often did you have a drink containing alcohol: never Score interpretation: A score less than 4 is consistent with normal alcohol consumption. Smoking status: Never smoker Non-prescribed substance use: denies use Previous occupational history: Retired Highest level of school completed/degree received: high school graduate Meds Home Medications and Allergies Home Medications ?Medication ?Instructions ?Recorded ?Confirmed ?Type ixekizumab 80 mg/mL subcutaneous 80 mg subcut .monthly 07/26/23 02/25/24 History auto-injector (Taltz Autoinjector) omega-3 acid ethyl esters 1 gram 1 cap PO DAILY 07/26/23 02/25/24 History capsule potassium citrate 10 mEq (1,080 10 meq PO BID 07/26/23 02/25/24 History mg) tablet,extended release cholecalciferol (vitamin D3) 10 10 mcg PO DAILY 02/25/24 02/25/24 History mcg (400 unit) capsule Allergies Allergy/AdvReac Type Severity Reaction Status Date / Time Sulfa (Sulfonamide Allergy Mild Rash Verified 02/25/24 13:12 Antibiotics) Exam Narrative Exam Narrative: Constitutional: Awake, alert, comfortable, well-appearing, nontoxic, interactive, vital signs as charted Head: Normocephalic, atraumatic Neck: Supple, normal appearance, normal range of motion, no meningeal signs, no lymphadenopathy Respiratory: No respiratory distress, breath sounds clear Cardiovascular: Bradycardic rate, regular rhythm, strong and regular heart tones Abdomen: Nontender, normal bowel sounds, soft, no CVA tenderness Musculoskeletal: Normal gait, no swelling or edema Skin: No rashes or induration, no lesions, only visible skin inspected Neuro: No neurological deficits, normal sensation Psychiatric: Oriented ?3, normal affect Assessment and Plan Assessment and Plan (1) Kidney stones: Plan Cystoscopy, right retrograde, right ureteroscopy, holmium laser, possible right stent placement scheduled with Dr. Montiel March 06, 2024.
[2024-02-25 13:49] LABS: Basophils Absolute Auto 0.1 10^3/uL (0.0-0.1); Eosinophils Percent Auto 0.6 % (0.9-7.0); Hematocrit 48.9 % (42.0-54.0); Hemoglobin 16.5 g/dL (14.0-18.0); Immature Granulocytes Abs Auto 0.01 10^3/uL (0.00-0.03); Immature Granulocytes Pct Auto 0.2 % (0.0-0.5); Lymphocytes Absolute Auto 1.9 10^3/uL (1.2-3.8); Mean Corpuscular HGB Conc 33.7 g/dL (29.9-35.2); Mean Corpuscular Hemoglobin 28.9 pg (25.9-34.0); Mean Corpuscular Volume 85.6 fL (80.0-94.0); Mean Platelet Volume 9.7 fL (9.5-13.5); Monocytes Absolute Auto 0.5 10^3/uL (0.3-0.8); Monocytes Percent Auto 11.1 % (1.7-12.0); Neutrophils Absolute Auto 2.3 10^3/uL (1.4-6.5); Neutrophils Percent Auto 48.1 % (43.0-75.0); Platelet Count 206 10^3/uL (150-450); Red Blood Count 5.71 10^6/uL (4.70-6.10); Red Cell Distribution Width 13.2 % (11.0-15.0); White Blood Count 4.8 10^3/uL (4.0-11.0)
[2024-02-25 14:00] LABS: Anion Gap 15.1; BUN Creatinine Ratio 16.5; Calcium 9.2 mg/dL (8.5-10.1); Carbon Dioxide 25.5 mmol/L (21.0-32.0); Chloride 104 mmol/L (98-107); Estimated GFR (African America >60 (>=60 mL/min/1.73m^2); Estimated GFR (Non-African Ame 54 (>=60 mL/min/1.73m^2); Glucose 91 mg/dL (74-106); Potassium 4.6 mmol/L (3.5-5.1); Sodium 140 mmol/L (136-145)
[2024-02-25 14:28] LABS: INR 0.99; Partial Thromboplastin Time 26.7 sec (22.3-36.2); Prothrombin Time 10.5 sec (9.0-11.6)
== END 2024-02-25 12:42 | disposition home or self-care (01) ==
LOC: PST 12:42
PROVIDERS: PCP Urology; Visit Provider Urology
DX: Z01.810 Encounter for preprocedural cardiovascular examination (principal); Z01.812 Encounter for preprocedural laboratory examination; Z01.818 Encounter for other preprocedural examination; N20.0 Calculus of kidney
CPT/HCPCS: 36415; 80048; 85025; 85610; 85730; 93005; G0463

== ENCOUNTER 2024-03-06 08:23 | Day surgery (SDC) | payer BC, SELFPAY ==
[2024-02-25 13:26] VITALS: BP 123/75; PULSE 50; TEMP 36.3; O2SAT 99; BMI 27.6
[2024-03-06] VITALS (16 sets, daily range): BP systolic 130–163; BP diastolic 68–93; PULSE 61–82; TEMP 35.9–36.1; O2SAT 95–99; BMI 27.6
--- NOTE | 2024-03-06 | FL_ITS ---
[address] [address] Patient Name: KATHERINE PONCE MRN: [id number] date: 1955 Sex: M Assigned Patient Location: [facility] Current Patient Location: Accession/Order Number: [id number] Exam Date: 03/06/2024 09:30 Report Date: 03/07/2024 08:55 At the request of: SHARLA ARRIAZA Procedure: FL fluoroscopy <1hr NON-READ EXAM: FL fluoroscopy <1hr NON-READ HISTORY: TECHNIQUE: FINDINGS: Please see Operative Report. Electronically authenticated by: RADIOLOGIST NO Date: 03/07/2024 08:55
--- OUTSIDE RECORDS SUMMARY | 2024-03-06 08:46 | XMS_ITS | CCD ---
Author Organization [facility] Care Team Providers Care Spragger Name Role Phone MONICA PARHAM Primary Care Physician Unavailab DO Krishna Beasley Attending Provider DO Monica Parham Primary Care Provider SOFIYA ., DR MAGDALENO Admitting Unavailable MONTIEL [...] Unavailable LEOLADONALD MEJIA Consulting Unavailable SARAVANANC, DR HOWARD Primary Care [...] JOSE ALFREDO, MUHAMID M Primary Care Unavailable Sharla MONTIEL Attending Unavailable CORI, MONICA Primary Care Unavailable Sharla MONTIEL Attending Unavailable CORI, MONICA Primary Care Unavailable Sharla MONTIEL Attending Unavailable CORI, MONICA Primary Care Unavailable Sharla MONTIEL Attending Unavailable CORI, MONICA Primary Care Unavailable NON STAFF Primary Care Unavailable Sharla Montiel Admitting Unavailable Sharla Montiel Attending Unavailable Allergies Allergy Classification Reported Allergen(s) Allergy Type Date of Onset Reaction(s) Facility (12 sources) Sulfamethoxazole / Trimethoprim; Translations: [sulfamethoxazole-t rimethoprim] Drug Allergy Unknown (qualifier value) [facility] (12 sources) Sulfonamides (Antibiotic); Translations: [sulfa drugs] Drug allergy Itching (finding), Weal (disorder) [facility] (1 source) Sulfonamides (Antibiotic) Drug allergy (disorder) 08-23-19 [facility] (5 sources) Sulfonamides (Antibiotic); Translations: [SULFA (SULFONAMIDE ANTIBIOTICS)] Propensity to adverse reactions to drug 09-22-19 17 [facility] (1 source) Sulfonamides (Antibiotic) Drug allergy (disorder) 06-13-19 19 [facility] Repository Medications Current Medications Medication Drug [...] day(s), # 28 cap(s), Refills(s) 0, Pharmacy: [facility]/pharmacy #[id number], 179, cm, 05/01/22 9:25:00 EST, Height/Length Dosing, 88, kg, 05/01/22 9:25:00 EST, Weight Dosing Start Date: 09/18/22 Stop Date: 10/02/22 Status: Ordered dutasteride 0.5 mg oral capsule (4 sources) 5-alpha Reductase Inhibitor Start: 10-09-2022 take 1 capsule by mouth once daily dutasteride 0.5 mg Cap 0.5 mg = 1 cap(s), Oral, Daily, # 30 cap(s), Refills(s) 11, Pharmacy: [facility] #[id number], 178, cm, 10/09/22 8:32:00 EDT, Height/Length Dosing, [...] day(s), # 14 tab(s), Refills(s) 0, Pharmacy: [facility]/pharmacy #[id number], 179, cm, 05/01/22 9:25:00 EST, [...] tab(s), Oral, BID, 180 tab(s), Refill(s) 3, [facility]/pharmacy #[id number], 178, cm, 07/02/23 9:59:00 EDT, Height/Length Dosing, 90.2, kg, 07/02/23 9:59:00 EDT, Weight Dosing Start Date: 09/24/23 Status: Ordered Start: 09-18-2022 potassium CITR ATE 10 mEq ER Tab 10 mEq, 1 tab(s), Oral, BID, 90 tab(s), Refill(s) 3, [facility]/pharmacy #[id number], 179, cm, 05/01/22 9:25:00 EST, Height/Length Dosing, 88, kg, 05/01/22 9:25:00 EST, Weight Dosing Start Date: 09/18/22 Status: Ordered Start: 10-28-2021 potassium CITR ATE 10 mEq ER Tab 10 mEq, 1 tab(s), Oral, BID, 90 tab(s), Refill(s) 3, [facility]/pharmacy #[id number], 177.8, cm, 10/28/21 10:29:00 EDT, [...] Daily, # 90 cap(s), Refills(s) 3, Pharmacy: [facility]/pharmacy #[id number], 179, cm, 05/01/22 9:25:00 EST, [...] 07-17-2022 Chronic Other aftercare (1 source) 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; 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] Onset: 08-28-2022 Episodic Other [...] Translations: [PARESTHESIA OF SKIN] Onset: 08-25-2022 Episodic Residual codes; unclassified (1 source) Other [...] with vomiting, unspecified] Onset: 07-17-2022 07-17-2022 Episodic Other screening for suspected conditions (not mental disorders or infectious disease) (20 sources) Raised prostate specific antigen; Translations: [Elevated prostate specific antigen [PSA]] Onset: 08-16-2021 Episodic Results Test Name Value Interpretation Reference [...] Sharla MONTIEL MD Where: [facility] [address] [place] [address]- You Need to Schedule the Following Appointments Follow Up with Sharla MONTIEL MD, URL When: Comments: 1 yr w/ PSA Where: [facility] [address] , [place] [address]- [phone] Medications What How Much When Instructions Unchanged [...] t (more content not included)... Normal [facility] Urology Office/Clinic Noteon 01-07-2024 Urology [...] 07/02/23. 01/04/24 - 7.17 MRI 03/10/19 at [facility] - negative. TRUS/bx 2008 - negative. Prostate MRI 07/30/23 [facility] [place] Neg. PSA has decreased from prior. No indication for further intervention, will cont to monitor. 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 S/p TURP 08/17/22 - chronic prostatitis. Prostate MRI 07/30/23 [facility] [place] - Prostate volume 89 mL. Stopped Dutasteride [...] [facility] [address], [place] [phone] Additional Instructions: 1 yr w/ PSA Patient Education Prostate Cancer Screening IMarilu, personally scribed for Dr. Montiel on 01/07/2024 12:40:47. . Documentation recorded by the scribeMarilu, accurately reflects the services(s) I performed and decisions made by me. Authenticated by Dr. Mitchell (more content not included)... Normal [facility] Comment on above: Result Comment: Elec tronically Signed By: Sharla MONTIEL MD\.br\Date and Time Signed: 01/07/24 12:43 EDT\.br\Electronically Co-Signed By: Marilu Meng\Cassidybr\Date and Time Co-Signed: 01/07/24 12:41 EDT RAD - MRI Reporton RAD - MRI Report [id number] #1.00TIFF Normal [facility] ISTAT XRay CREon 07-30-2023 ISTAT GFR > 60.0 Normal [facility] Comment on above: Result Comment: PERF ORMED BY: [place] [address] PATHOLOGIST SCRATCH BRUSHER TRENT STEWART M.D. Performed By: #### I SCRE #### [address] MR prostate wo/w conon 07-29 MR prostate wo/w con [facility] [place] [address] [place] [address] MRI Report Signed Patient: Zander Ponce MR#: [id number] : 1955 Acct:[id number] Age/Sex: 67 / M ADM Date: 07/30/23 Loc: MR Room: Type: [facility] Attending Dr: Sharla Montiel MD Copies to: [...] Ayala Jr., D.O.07/30/2023 6:41 PM Dictation Location: [facility]--15 Transcribed By: DAVID 07/30/231840 Dictated By: Terrell Ayala Jr, DO 07/30/231837 Signed By: 07/30/231840 Normal [facility] No Panel InformationOrdered By: Sharla Montiel on 07-30-2023 Bedside Estimated GFR (eGFR) > 60.0 [facility] Whole blood creatinine measu rementOrdered By: Sharla Montiel on 07-30-2023 Creatinine [Mass/Vol] 1.3 mg/dL Normal 0.6-1.3 [facility] Comment on above: ER/ESD physician is notified/shown all ISTAT results.Critical values may be confirmed by laboratory testing ifdeemed necessary by ER attending doctor. Result Comment: ER/E SD physician is notified/shown all ISTAT results. Critical values may be confirmed by laboratory testing if deemed necessary by ER attending doctor. Performed By: #### I SCRE #### [facility] [address] Ambulatory Visit Summaryon 0 07-02-2023 Ambulatory Visit [...] MAGANA, Sharla Layton Where: [facility] Normal [facility] Insurance Correspondenceon 0 07-02-2023 Insurance Correspondence [id number] 5#1.00TIFF Normal [facility] Lab Reportson 07-02-2023 Lab Reports [id number] #1.00TIFF Normal [facility] Patient Educationon 07-02-19 Patient Education Oncology Prostate [...] Where to find more information ? [employer] [employer]: www.cancer.org ? [employer] [employer]: www.auanet.org Contact a health care [...] adds flu (more content not included)... Normal [facility] Urology Office/Clinic Noteon 07-02-2023 Urology Office/Clinic Note [...] 4.13 (Dutasteride 8.26) Last MRI 03/10/19 at [facility] - negative. TRUS/bx 2008 - negative. [...] [facility]rology [address], [place] [address]- [phone] Additional Instructions: 6 mos w/ PSA Patient Education Prostate Cancer Screening I, Marilu Meng, personally scri (more content not included)... Normal [facility] Comment on above: Result Comment: Elec tronically [...] Owen Pena on 04/26/2023 4:07 PM Normal [facility] US SCROTUMon 04-26-2023 US SCROTUM [...] Owen Pena on 04/26/2023 11:02 AM Normal [facility] US LELIA DOP LEG RTon 08-26-19 US LELIA DOP LEG RT EXAMINATION: US LELIA DOP LEG RT HISTORY: Deep venous thrombosis COMPARISON: No relevant comparison available. TECHNIQUE: Grayscale, color and Doppler ultrasound FINDINGS: Region: Right leg Thrombus: None Flow: Normal Augmentation: Normal Compressibility: Normal IMPRESSION: No deep or superficial vein thrombus identified in the right leg *Exam performed in accordance with [facility] practice guidelines- Peripheral venous ultrasound, June 26, 2009. Electronically authenticated by: GIOVANNY ZAYAS Date: 2022-08-25 15:47 Normal [facility] PROF CHEM 8 (BAS METB)on Anion gap [Moles/Vol] 7.8 mmol/L Normal [facility] Comment on above: Performed By: #### B MP ####[facility] [address] [address]Dr. Leeanna Carlson Calcium [Mass/Vol] 9.1 mg/dL Normal 8.5-10.1 [facility] Comment on above: Performed By: #### B MP ####[facility] [address] [address]Dr. Leeanna Carlson Chloride [Moles/Vol] 105 mmol/L Normal 98-107 [facility] Comment on above: Performed By: #### B MP ####[facility] [address] [address]Dr. Leeanna Carslon CO2 [Moles/Vol] 28.6 mmol/L Normal 21.0-32.0 [facility] Comment on above: Performed By: #### B MP ####[facility] [address] [address]Dr. Leeanna Carlson Creatinine [Mass/Vol] 1.18 mg/dL Normal 0.70-1.30 [facility] Comment on above: Performed By: #### B MP ####[facility] [address] [address]Dr. Leeanna Carlson EGFR-AF CANADIAN >60 Normal >=60 The [facility] Comment on above: Performed By: #### B MP ####[facility] [address] [address]Dr. Leeanna Carlson EGFR-NON AF CANADIAN >60 Normal >=60 [facility] Comment on above: Performed By: #### B MP ####[facility] [address] [place], [place] [address]Dr. Leeanna Carlson Glucose [Mass/Vol] 96 mg/dL Normal 74-106 [facility] Comment on above: Performed By: #### B MP ####[facility] [address] [place], [place] [address]Dr. Leeanna Carlson Potassium [Moles/Vol] 4.4 mmol/L Normal 3.5-5.1 [facility] Comment on above: Performed By: #### B MP ####[facility] [address] [place], [place] [address]Dr. Leeanna Carlson Sodium [Moles/Vol] 137 mmol/L Normal 136-145 [facility] Comment on above: Performed By: #### B MP ####[facility] [address] [place], [place] [address]Dr. Leeanna Aldo Urea nitrogen [Mass/Vol] 17.0 mg/dL Normal 7.0-18.0 [facility] Comment on above: Performed By: #### B MP ####[facility] [address] [place], [place] [address]Dr. Leeanna Carlson Urea nitrogen/Creatinine [Mass ratio] 14.4 mg/mg Normal [facility] Comment on above: Performed By: #### B MP ####[facility] [address] [address]Dr. Leeanna Carlson PROTIMEon 08-09-2022 INR Coag (PPP) [Relative time] 1.01 {INR} Normal [facility] Comment on above: Performed By: #### P T, PTT ####[facility] [address] [address]Dr. Leeanna Carlson INR GUIDELINES SEE BELOW Normal [facility] Comment on above: Result Comment: AIRAM RED INR: 2.0 - 3.0 CONDITIONS NOT LISTED BELOW 2.5 - 3.5 FOR PROSTHETIC HEART VALVE REPLACEMENT 2.5 - 3.5 RECURRENT THROMBOSIS Performed By: #### P T, PTT ####[facility] [address] [place], [place] [address]Dr. Leeanna Carlson PT Coag (PPP) [Time] 10.7 s Normal 9.0-11.6 [facility] Comment on above: Performed By: #### P T, PTT ####[facility] [address] [place], [place] [address]DrCassidy Carlson PTTon 08-09-2022 aPTT Coag (Bld) [Time] 29.2 s Normal 22.3-36.2 [facility] Comment on above: Performed By: #### P T, PTT ####[facility] [address] [place], [place] [address]Dr. Leeanna Carlson CBC AUTO DIFFon 07-28-2022 BASO # 0.0 103/ul Normal 0.0-0.1 [facility] Comment on above: Performed By: #### C BC #### [facility] [address] [place] [address] Dr. Leeanna Carlson Basophils/100 WBC (Bld) 0.8 % Normal 0.2-2.0 [facility] Comment on above: Performed By: #### C BC #### [facility] [address] [place] [address] Dr. Leeanna Carlson EO # 0.0 103/ul Normal 0.0-0.7 [facility] Comment on above: Performed By: #### C BC #### [facility] [address] [place] [address] Dr. Leeanna Carlson Eosinophils/100 WBC (Bld) 0.6 % Critically low 0.9-7.0 [facility] Comment on above: Performed By: #### C BC #### [facility] [address] [place] [address] Dr. Leeanna Carlson Erythrocyte distribution width (RBC) [Ratio] 13.3 % Normal 11.0-15.0 [facility] Comment on above: Performed By: #### C BC #### [facility] [address] [place] [address] Dr. Leeanna Carlson Hematocrit (Bld) [Volume fraction] 46.5 % Normal 42.0-54.0 [facility] Comment on above: Performed By: #### C BC #### [facility] [address] [place] [address] Dr. Leeanna Carlson Hemoglobin (Bld) [Mass/Vol] 15.4 g/dL Normal 14.0-18.0 [facility] Comment on above: Performed By: #### C BC #### [facility] [address] [place] [address] Dr. Leeanna Carlson IG # 0.01 10e3/ul Normal 0.00-0.03 [facility] Comment on above: Performed By: #### C BC #### [facility] [address] [place] [address] Dr. Leeanna Carlson IG % 0.2 % Normal 0.0-0.5 [facility] Comment on above: Performed By: #### C BC #### [facility] [address] [place] [address] Dr. Leeanna Carlson LYMPH # 1.8 103/ul Normal 1.2-3.8 [facility] Comment on above: Performed By: #### C BC #### [facility] [address] [place] [address] Dr. Leeanna Carlson Lymphocytes/100 WBC (Bld) 35.0 % Normal 20.5-60.0 [facility] Comment on above: Performed By: #### C BC #### [facility] [address] [place] [address] Dr. Leeanna Carlson MANUAL DIFF REQ NO Normal [facility] Comment on above: Performed By: #### C BC #### [facility] [address] [place] [address] Dr. Leeanna Cralson MCH (RBC) [Entitic mass] 28.4 pg Normal 25.9-34.0 [facility] Comment on above: Performed By: #### C BC #### [facility] [address] [place] [address] Dr. Leeanna Carlson MCHC (RBC) [Mass/Vol] 33.1 g/dL Normal 29.9-35.2 [facility] Comment on above: Performed By: #### C BC #### [facility] [address] [place] [address] Dr. Leeanna Carlson MCV (RBC) [Entitic vol] 85.6 fL Normal 80.0-94.0 [facility] Comment on above: Performed By: #### C BC #### [facility] [address] [place] [address] Dr. Leeanna Carlson MONO # 0.6 103/ul Normal 0.3-0.8 [facility] Comment on above: Performed By: #### C BC #### [facility] [address] [place] [address] Dr. Leeanna Carlson Monocytes/100 WBC (Bld) 11.5 % Normal 1.7-12.0 [facility] Comment on above: Performed By: #### C BC #### [facility] [address] [place] [address] Dr. Leeanna Carlson NEUT # 2.7 103/ul Normal 1.4-6.5 [facility] Comment on above: Performed By: #### C BC #### [facility] [address] [place] [address] Dr. Leeanna Carlson Neutrophils/100 WBC (Bld) 51.9 % Normal 43.0-75.0 [facility] Comment on above: Performed By: #### C BC #### [facility] [address] [place] [address] Dr. Leeanna Carlson Platelet mean volume (Bld) [Entitic vol] 9.9 fL Normal 9.5-13.5 [facility] Comment on above: Performed By: #### C BC #### [facility] [address] [place] [address] Dr. Leeanna Carlson PLT 191 103/ul Normal 150-450 [facility] Comment on above: Performed By: #### C BC #### [facility] [address] [place] [address] Dr. Leeanna Carlson RBC 5.43 106/ul Normal 4.70-6.10 [facility] Comment on above: Performed By: #### C BC #### [facility] [address] [place] [address] Dr. Leeanna Carlson WBC 5.1 103/ul Normal 4.0-11.0 [facility] Comment on above: Performed By: #### C BC #### [facility] [address] [place] [address] ABD/PELVIS WO CONon [...] JOHANNA MARIE Date: 2022-07-28 10:52 Normal [facility] ER URINE PROFILEon 3 Bilirubin Ql (U) Negative Normal NEGATIVE The [facility] Comment on above: Performed By: #### U MICRO, ERUR #### [facility] [address] [address] [address] Leeanna Carlson Clarity (U) CLOUDY Abnormal CLEAR [facility] Comment on above: Performed By: #### U MICRO, ERUR #### [facility] [address] [address] [address] Leeanna Carlson Color (U) BROWN Abnormal YELLOW [facility] Comment on above: Performed By: #### U MICRO, ERUR #### [facility] [address] [address] [address] Leeanna KEENE A micrscopic examination will be performed if indicated. Normal [facility] Comment on above: Performed By: #### U MICRO, ERUR #### [facility] [address] [address] [address] Leeanna Carlson Glucose Ql (U) Negative Normal NEGATIVE [facility] Comment on above: Performed By: #### U MICRO, ERUR #### [facility] [address] [address] [address] Leeanna Carlson Hemoglobin Ql (U) LARGE Abnormal NEGATIVE [facility] Comment on above: Performed By: #### U MICRO, ERUR #### [facility] [address] [address] [address] Leeanna Carlson Ketones Ql (U) Negative Normal NEGATIVE [facility] Comment on above: Performed By: #### U MICRO, ERUR #### [facility] [address] [address] [address] Leeanna Carlson LEUKOCYTES TRACE Abnormal NEGATIVE [facility] Comment on above: Performed By: #### U MICRO, ERUR #### [facility] [address] [place] [address] Dr. Leeanna Carlson Nitrite Ql (U) Negative Normal NEGATIVE [facility] Comment on above: Performed By: #### U MICRO, ERUR #### [facility] [address] [place] [address] Dr. Leeanna Carlson pH (U) 5.0 [pH] Normal 5-9 [facility] Comment on above: Performed By: #### U MICRO, ERUR #### [facility] [address] [place] [address] Dr. Leeanna Carlson Protein (U) [Mass/Vol] 30 mg/dL Abnormal NEGAT KIERSTEN/ TRACE [facility] Comment on above: Performed By: #### U MICRO, ERUR #### [facility] [address] [place] [address] Dr. eLeanna Carlson SPEC GRAVITY 1.020 Normal 1.005-<=1.025 [facility] Comment on above: Performed By: #### U MICRO, ERUR #### [facility] [address] [place] [address] Dr. Leeanna Carlson UR MICRO IND INDICATED Normal [facility] Comment on above: Performed By: #### U MICRO, ERUR #### [facility] [address] [place] [address] Dr. Leeanna Carlson Urobilinogen Qn (U) 1.0 {Marito'U}/dL Normal 0.2 - 1. 0 [facility] Comment on above: Performed By: #### U MICRO, ERUR #### [facility] [address] [place] [address] Dr. Leeanna Carlson URINE MICROSCOPIC ONLYon BACTERIA NONE SEEN Normal NONE SEEN [facility] Comment on above: Performed By: #### U MICRO, ERUR #### [facility] [address] [place] [address] Dr. Leeanna Carlson Bacteria identified Cx Nom (U) NOT INDICATED Normal [facility] Comment on above: Performed By: #### U MICRO, ERUR #### [facility] [address] [address] [address] Leeanna Carlson CAST NONE SEEN Normal NONE SEEN [facility] Comment on above: Performed By: #### U MICRO, ERUR #### [facility] [address] [address] [address] Leeanna Carlson Crystals LM Nom (Urine sed) NONE SEEN Normal NONE SEEN [facility] Comment on above: Performed By: #### U MICRO, ERUR #### [facility] [address] [address] [address] Leeanna Carlson Epithelial cells LM Ql (Urine sed) RARE Normal NONE SEEN /RARE [facility] Comment on above: Performed By: #### U MICRO, ERUR #### [facility] [address] [place] [address] Dr. Leeanna Carlson MUCOUS NONE SEEN Normal NONE SEEN [facility] Comment on above: Performed By: #### U MICRO, ERUR #### [facility] [address] [address] [address] Leeanna Carlson RBC (U) [#/Vol] /uL Abnormal 0-2 [facility] Comment on above: Performed By: #### U MICRO, ERUR #### [facility] [address] [address] [address] Leeanna Carlson WBC 0-2 Abnormal NONE SEEN [facility] Comment on above: Performed By: #### U MICRO, ERUR #### [facility] [address] [address] [address] Leeanna Carlson CULTURE URINEon 06-14-2022 CULTURE URINE Culture Observations: NO GROWTH. Normal [facility] Comment on above: Performed By: #### U RCX ####[facility] [address] [address]Dr. Leeanna Carlson UA RANDOMon 06-14-2022 Bilirubin Ql (U) Negative Normal NEGATIVE The [facility] Comment on above: Performed By: #### U A #### [facility] [address] [address] [address] Leeanna Carlson Clarity (U) CLEAR Normal CLEAR [facility] Comment on above: Performed By: #### U A #### [facility] [address] [place] [address] Dr. Leeanna Carlson Color (U) LT. YELLOW Normal YELLOW [facility] Comment on above: Performed By: #### U A #### [facility] [address] [place] [address] Dr. Leeanna Carlson Glucose Ql (U) Negative Normal NEGATIVE [facility] Comment on above: Performed By: #### U A #### [facility] [address] [place] [address] Dr. Leeanna Carlson Hemoglobin Ql (U) SMALL Abnormal NEGATIVE [facility] Comment on above: Performed By: #### U A #### [facility] [address] [place] [address] Dr. Leeanna Carlson Ketones Ql (U) Negative Normal NEGATIVE [facility] Comment on above: Performed By: #### U A #### [facility] [address] [place] [address] Dr. Leeanna Carlson LEUKOCYTES Negative Normal NEGATIVE [facility] Comment on above: Performed By: #### U A #### [facility] [address] [place] [address] Dr. Leeanna Carlson Nitrite Ql (U) Negative Normal NEGATIVE [facility] Comment on above: Performed By: #### U A #### [facility] [address] [place] [address] Dr. Leeanna Carlson pH (U) 6.0 [pH] Normal 5-9 [facility] Comment on above: Performed By: #### U A #### [facility] [address] [place] [address] Dr. Leeanna Carlson SPEC GRAVITY <=1.005 Abnormal 1.005-<=1.025 [facility] Comment on above: Performed By: #### U A #### [facility] [address] [place] [address] Dr. Leeanna Carlson UA PROTEIN Negative Normal NEGATIVE/ TRACE [facility] Comment on above: Performed By: #### U A #### [facility] [address] [place], [place] [address] Dr. Leeanna Carlson Urobilinogen Qn (U) 0.2 {Marito'U}/dL Normal 0.2 - 1. 0 [facility] Comment on above: Performed By: #### U A #### [facility] [address] [place], [place] [address] Dr. Leeanna Carlson US KIDNEYSon 06-14-2022 US [...] ARTHUR ONTIVEROS Date: 2022-06-14 14:27 Normal [facility] XR KUB 1 VIEWon 06-14-2022 XR [...] GIOVANNY ZAYAS Date: 2022-06-14 13:33 Normal [facility] Creatinine (Bld) [Mass/Vol]O rdered By: Dave Solorio on 04-27-2022 Creatinine [Mass/Vol] 1.2 mg/dL 0.6-1.3 [facility] Comment on above: ER/ESD physician is notified/shown all ISTAT results.Critical values may be confirmed by laboratory testing ifdeemed necessary by ER attending doctor. No Panel InformationOrdered By: Dave Solorio on 04-27-2022 POC Estimated GFR > 60 [facility] Comment on above: GFR estimated refere nce range: According to KDOQI guidelines, <60 ml/min/1.73m2 is sufficient to diagnose a patient with chronic kidney disease. POC Estimated GFR Non- Amer > 60 [facility] XR KUB 1 VIEWon 04-19-2022 XR [...] GIOVANNY ZAYAS Date: 2022-04-19 16:59 Normal [facility] XR KUB 1 VIEWon 10-06-2021 XR [...] JOHANNA MARIE Date: 2021-10-06 16:08 Normal [facility] CBC AUTO DIFFon 09-28-2021 BASO # 0.0 103/ul Normal 0.0-0.1 [facility] Comment on above: Performed By: #### C BC ####[facility] [address] [place] [id number]. Leeanna Carlson Basophils/100 WBC (Bld) 0.8 % Normal 0.2-2.0 [facility] Comment on above: Performed By: #### C BC ####[facility] [address] [place], [place] [address]Dr. Leeanna Carlson EO # 0.1 103/ul Normal 0.0-0.7 [facility] Comment on above: Performed By: #### C BC ####[facility] [address] [place], [place] [address]Dr. Leeanna Carlson Eosinophils/100 WBC (Bld) 2.0 % Normal 0.9-7.0 [facility] Comment on above: Performed By: #### C BC ####[facility] [address] [place], [place] [address]Dr. Leeanna Carlson Erythrocyte distribution width (RBC) [Ratio] 13.2 % Normal 11.0-15.0 [facility] Comment on above: Performed By: #### C BC ####[facility] [address] [place], [place] [address]Dr. Leeanna Carlson Hematocrit (Bld) [Volume fraction] 47.8 % Normal 42.0-54.0 [facility] Comment on above: Performed By: #### C BC ####[facility] [address] [place], [place] [address]Dr. Leeanna Carlson Hemoglobin (Bld) [Mass/Vol] 15.8 g/dL Normal 14.0-18.0 [facility] Comment on above: Performed By: #### C BC ####[facility] [address] [place], [place] [address]Dr. Leeanna Carlson IG # 0.01 10e3/ul Normal 0.00-0.03 [facility] Comment on above: Performed By: #### C BC ####[facility] [address] [place], [place] [address]Dr. Leeanna Carlson IG % 0.2 % Normal 0.0-0.5 [facility] Comment on above: Performed By: #### C BC ####[facility] [address] [place] [id number]. Leeanna Carlson LYMPH # 1.4 103/ul Normal 1.2-3.8 [facility] Comment on above: Performed By: #### C BC ####[facility] [address] [place] [id number]. Leeanna Carlson Lymphocytes/100 WBC (Bld) 29.1 % Normal 20.5-60.0 [facility] Comment on above: Performed By: #### C BC ####[facility] [address] [place] [address]Dr. Leeanna Carlson MANUAL DIFF REQ NO Normal [facility] Comment on above: Performed By: #### C BC ####[facility] [address] [place] [phone]. Leeanna Carlson MCH (RBC) [Entitic mass] 28.4 pg Normal 25.9-34.0 [facility] Comment on above: Performed By: #### C BC ####[facility] [address] [place] [phone]. Tammieami Carlson MCHC (RBC) [Mass/Vol] 33.1 g/dL Normal 29.9-35.2 [facility] Comment on above: Performed By: #### C BC ####[facility] [address] [place] [phone]. Leeanna Carlson MCV (RBC) [Entitic vol] 86.0 fL Normal 80.0-94.0 [facility] Comment on above: Performed By: #### C BC ####[facility] [address] [place] [phone]. Leeanna Carlson MONO # 0.5 103/ul Normal 0.3-0.8 [facility] Comment on above: Performed By: #### C BC ####[facility] [address] [place] [address]Dr. Leeanna Carlson Monocytes/100 WBC (Bld) 9.9 % Normal 1.7-12.0 [facility] Comment on above: Performed By: #### C BC ####[facility] [address] [place] [address]Dr. Leeanna Carlson NEUT # 2.9 103/ul Normal 1.4-6.5 [facility] Comment on above: Performed By: #### C BC ####[facility] [address] [place] [phone]. Leeanna Carlson Neutrophils/100 WBC (Bld) 58.0 % Normal 43.0-75.0 [facility] Comment on above: Performed By: #### C BC ####[facility] [address] [place] [address]Dr. Leeanna Carlson Platelet mean volume (Bld) [Entitic vol] 10.3 fL Normal 9.5-13.5 [facility] Comment on above: Performed By: #### C BC ####[facility] [address] [place] [address]Dr. Leeanna Carlson PLT 187 103/ul Normal 150-450 [facility] Comment on above: Performed By: #### C BC ####[facility] [address] [place], [place] [address]Dr. Leeanna Carlson RBC 5.56 106/ul Normal 4.70-6.10 [facility] Comment on above: Performed By: #### C BC ####[facility] [address] [place] [phone]. Leeanna Carlson WBC 4.9 103/ul Normal 4.0-11.0 [facility] Comment on above: Performed By: #### C BC ####[facility] [address] [place] [phone] Carlson PROF CHEM 8 (BAS METB)on Anion gap [Moles/Vol] 8.9 mmol/L Normal [facility] Comment on above: Performed By: #### B MP ####[facility] [address] [place] [address]DrCassidy Carlson Calcium [Mass/Vol] 9.1 mg/dL Normal 8.5-10.1 [facility] Comment on above: Performed By: #### B MP ####[facility] [address] [place] [address]Dr. Leeanna Carlson Chloride [Moles/Vol] 105 mmol/L Normal 98-107 [facility] Comment on above: Performed By: #### B MP ####[facility] [address] [place] [address]Dr. Leeanna Carlson CO2 [Moles/Vol] 27.8 mmol/L Normal 21.0-32.0 The [facility] Comment on above: Performed By: #### B MP ####[facility] [address] [place] [address]Dr. Leeanna Carlson Creatinine [Mass/Vol] 1.18 mg/dL Normal 0.70-1.30 [facility] Comment on above: Performed By: #### B MP ####[facility] [address] [place] [address]Dr. Leeanna Aldo EGFR-AF CANADIAN >60 Normal >=60 The [facility] Comment on above: Performed By: #### B MP ####[facility] [address] [place], [place] [address]Dr. Leeanna Carlson EGFR-NON AF CANADIAN >60 Normal >=60 [facility] Comment on above: Performed By: #### B MP ####[facility] [address] [place] [address]Dr. Tammieami Carlson Glucose [Mass/Vol] 110 mg/dL Critically high 74-106 [facility] Comment on above: Performed By: #### B MP ####[facility] [address] [place] [address]Dr. Tammieami Carlson Potassium [Moles/Vol] 4.7 mmol/L Normal 3.5-5.1 [facility] Comment on above: Performed By: #### B MP ####[facility] [address] [place] [address]Dr. Tammieami Aldo Sodium [Moles/Vol] 137 mmol/L Normal 136-145 [facility] Comment on above: Performed By: #### B MP ####[facility] [address] [place], [place] [address]Dr. Leeanna Carlson Urea nitrogen [Mass/Vol] 22.0 mg/dL Critically high 7.0-18.0 [facility] Comment on above: Performed By: #### B MP ####[facility] [address] [place], [place] [address]IzDr. Leeanna Carlson Urea nitrogen/Creatinine [Mass ratio] 18.6 mg/mg Normal [facility] Comment on above: Performed By: #### B MP ####[facility] [address] [place], [place] [address]CtDr. Leeanna Carlson PROTIMEon 09-28-2021 INR Coag (PPP) [Relative time] 0.98 {INR} Normal [facility] Comment on above: Performed By: #### P TT, PT #### [facility] [address] [place] [address] [address] Leeanna Carlson INR GUIDELINES SEE BELOW Normal [facility] Comment on above: Result Comment: AIRAM RED INR: 2.0 - 3.0 CONDITIONS NOT LISTED BELOW 2.5 - 3.5 FOR PROSTHETIC HEART VALVE REPLACEMENT 2.5 - 3.5 RECURRENT THROMBOSIS Performed By: #### P TT, PT #### [facility] [address] [place] [address] [address] Leeanna Carlson PT Coag (PPP) [Time] 10.6 s Normal 9.0-11.6 [facility] Comment on above: Performed By: #### P TT, PT #### [facility] [address] [place] [address] [address] Leeanna Carlson PTTon 09-28-2021 aPTT Coag (Bld) [Time] 29.3 s Normal 22.3-36.2 [facility] Comment on above: Performed By: #### P TT, PT #### [facility] [address] [place] [address] [address] Leeanna Carlson Comprehensive Metabolic Pane puneet 06-03-2021 Albumin [Mass/Vol] 4.6 g/dL Normal 3.6-5.1 [facility] [place] [employer] Comment on above: Performed By: #### V ITD, LIPD, CMP #### [facility] [address] [place], [place] [id number] Albumin/Globulin [Mass ratio] 1.9 {ratio} Normal 1.0-2.5 [facility] Comment on above: Performed By: #### V ITD, LIPD, CMP #### [facility] [address] [place], [place] [id number] ALP [Catalytic activity/Vol] 85 U/L Normal 40-129 [facility] Comment on above: Performed By: #### V ITD, LIPD, CMP #### [facility] [address] [place], [place] [id number] ALT [Catalytic activity/Vol] 28 U/L Normal 9-46 [facility] Comment on above: Result Comment: 03/02 Female reference range changed. Performed By: #### V ITD, LIPD, CMP #### [facility] [address] [place], [place] [id number] Anion gap [Moles/Vol] 18 mmol/L Normal 12-20 [facility] Comment on above: Result Comment: Effe ctive 04/07/2019 reference range changed. Performed By: #### V ITD, LIPD, CMP #### [facility] [address] [place], [place] [id number] AST [Catalytic activity/Vol] 25 U/L Normal 10-40 [facility] Comment on above: Performed By: #### V ITD, LIPD, CMP #### [facility] [address] [place], [place] [id number] Bilirubin [Mass/Vol] 0.65 mg/dL Normal 0.30-1.20 [facility] Comment on above: Performed By: #### V ITD, LIPD, CMP #### [facility] [address] [place], [place] [id number] BUN/CREA 24 Ratio High 6-22 [facility] Comment on above: Performed By: #### V ITD, LIPD, CMP #### [facility] [address] [place], [place] [id number] Calcium [Mass/Vol] 9.4 mg/dL Normal 8.6-10.2 [facility] [employer] Comment on above: Performed By: #### V ITD, LIPD, CMP #### [facility] [address] [place], [place] [id number] Chloride [Moles/Vol] 105 mmol/L Normal 98-107 [facility] Comment on above: Performed By: #### V ITD, LIPD, CMP #### [facility] [address] [place], [place] [id number] CO2 [Moles/Vol] 23 mmol/L Normal 20-31 [facility] Comment on above: Performed By: #### V ITD, LIPD, CMP #### [facility] [address] [facility] [place] [id number] Creatinine [Mass/Vol] 1.1 mg/dL Normal 0.7-1.[address] [facility] Comment on above: Performed By: #### V ITD, LIPD, CMP #### [facility] [address] [place], [place] [id number] eGFRAA 86 mL/min/1.73m2 Normal >60 [facility] Comment on above: Performed By: #### V ITD, LIPD, CMP #### [facility] [address] [place], [place] [id number] eGFRNAA 71 mL/min/1.73m2 Normal >60 [facility] Comment on above: Performed By: #### V ITD, LIPD, CMP #### [facility] [address] [place], [place] [id number] Globulin (S) [Mass/Vol] 2.4 g/dL Normal 1.9-3.7 [facility] Comment on above: Performed By: #### V ITD, LIPD, CMP #### [facility] [address] [place], [place] [id number] Glucose [Mass/Vol] 97 mg/dL Normal 65-99 [facility] [employer] Comment on above: Result Comment: For FASTING Glucose --- ADA reference ranges: Normal 65-99 mg/dl Prediabetes 100-125 Diabetes >/= 126 Performed By: #### V ITD, LIPD, CMP #### [facility] [address] [place], [place] [id number] Potassium [Moles/Vol] 4.5 mmol/L Normal 3.5-5.5 [facility] Comment on above: Performed By: #### V ITD LIPD, CMP #### [facility] [address] [place], [place] [id number] Protein [Mass/Vol] 7.0 g/dL Normal 6.1-8.1 [facility] [employer] Comment on above: Performed By: #### V ITD LIPD, CMP #### [facility] [address] [place], [place] [id number] Sodium [Moles/Vol] 141 mmol/L Normal 135-146 Jp rn [place] [employer] Comment on above: Performed By: #### V CORINE LIPD, CMP #### [facility] [address] [place], [place] [id number] Urea nitrogen [Mass/Vol] 26 mg/dL High 7-25 [facility] [employer] Comment on above: Performed By: #### V ITD LIPD, CMP #### [facility] [address] [place], [place] [id number] Hemoglobin A1Con 06-03-2021 EAG 125.50 Normal [facility] [employer] Comment on above: Performed By: #### A 1C #### [facility] [address] [place], [place] [id number] HbA1c (Bld) [Mass fraction] 6.0 % Normal 4.0-6.0 [facility] [employer] Comment on above: Performed By: #### A 1C #### [facility] [address] [place], [place] [id number] Lipid Panelon 06-03-2021 Cholesterol [Mass/Vol] 232 mg/dL High 125-200 [facility] Comment on above: Result Comment: Low risk < 200mg/dL Borderline risk 201-239 mg/dl High risk > or equal to 240 Performed By: #### V ITD, LIPD, CMP #### [facility] [address] [place], [place] [id number] Cholesterol in HDL [Mass/Vol] 68 mg/dL Normal >40 [facility] [employer] Estate [employer] Agent Comment on above: Result Comment: High Cardiovascular Risk HDL <40 mg/dL Low Cardiovascular Risk HDL > or equal to 60 mg/dl Performed By: #### V ITD, LIPD, CMP #### [facility] [address] [place], [place] [id number] Cholesterol in LDL [Mass/Vol] 153 mg/dL Normal [facility] Comment on above: Result Comment: LDL ATP III CLASSIFICATION LDL less than 100 mg/dl Optimal LDL 100-129 mg/dl Near or above optimal LDL 130-159 Borderline high LDL 160-189 High LDL greater than 189 mg/dl Very High Performed By: #### V ITD, LIPD, CMP #### [facility] [address] [place], [place] [id number] Cholesterol in VLDL [Mass/Vol] 11 mg/dL Normal [facility] Comment on above: Performed By: #### V ITD, LIPD, CMP #### [facility] [address] [place], [place] [id number] Cholesterol.total/Chol esterol in HDL [Mass ratio] 3 {ratio} Normal [facility] Comment on above: Performed By: #### V ITD, LIPD, CMP #### [facility] [address] [place], [place] [id number] Triglyceride [Mass/Vol] 55 mg/dL Normal 30-150 [facility] Comment on above: Result Comment: TRIG ATPIII CLASSIFICATIONS TRIG less than 150 mg/dl Normal TRIG 150-199 mg/dl Borderline High TRIG 200-500 mg/dl High TRIG greather than 500 mg/dl Very High Performed By: #### V ITD, LIPD, CMP #### [facility] [address] [place], [place] [id number] Prostatic Specific Antigen, Totalon 06-03-2021 TPSA 5.030 ng/mL High <4.000 [facility] Comment on above: Result Comment: PSA Test Method: ECLIA/Maira e 601 Performed By: #### P SA #### [facility] [address] [place], [place] [id number] Vitamin D 25-OHon 06-03-2021 VIT D 25 [place] 57 ng/ml Normal >29 [facility] [employer] Comment on above: Result Comment: Amanda min D Status Deficiency <20 ng/mL Insufficiency 20-29 ng/mL Optimal 30-100 ng/mL Possible Toxicity >=150 ng/mL Performed By: #### V ITD, LIPD, CMP #### [facility] [address] [facility] [place] [id number] MRI PROSTATE WO/W IVCONon MRI PROSTATE WO/W [...] prostate and pelvis performed on a 3T ([employer]) scanner utilizing phase pelvic coil. Sequences obtained: Multiplanar T2-WI with small lvioc-nt-gsvt; Axial diffusion weighted images with multiple B-values and creation of ADC-maps; Dynamic contrast enhanced T1-weighted images through the prostate were also obtained before, during and after the administration of intravenous gadolinium. Prostate dimensions and volume were obtained using a semi-automated software ([employer]). CONTRAST: IV: 17 cc of (Dotarem). RESULT: [...] Clinically significant cancer is highly likely (V.05) Instructional Design Consultant: GEOFF Transcribe Date/Time: Mar 10 2019 1:33P Dictated by : DAVE JONES MD This examination was interpreted and the report reviewed and electronically signed by: DAVE JONES MD on Mar 10 2019 2:15PM EST [id number] Normal [facility] PROGRESSon 03-10-2019 PROGRESS HNO ID: [id number] Author: Hallie Manning) QUIN Saavedra Service: Radiology [...] March 10, 2019 TIME: 12:15 PM Normal [facility] PROGRESS HNO ID: [id number] Author: Rosina Ferrari (Tech) Service: Radiology Author Type: Hospital Sales Representative Type: Progress Notes Filed: 03/10/2019 12:54 [...] Ferrari March 10, 2019 12:54 PM Normal [facility] Vital Signs Date Time Vital Sign Value Performing Clinician Jesse cooper 01-07-2024 11:24-0400 Blood Pressure Location Sharla MONTIEL [facility] 01-07-2024 11:24-0400 Diastolic blood pressure 78 mm[Hg] Sharla MONTIEL [facility] 01-07-2024 11:24-0400 Heart rate 62 /min Sharla MONTIEL [facility] 01-07-2024 11:24-0400 Systolic blood pressure 136 mm[Hg] Sharla MONTIEL [facility] 07-02-2023 09:42-0400 Blood Pressure Location Sharla MONTIEL [facility] 07-02-2023 09:42-0400 Body temperature 98.6 [degF] Sharla MONTIEL [facility] 07-02-2023 09:42-0400 Diastolic blood pressure 84 mm[Hg] Sharla MONTIEL [facility] 07-02-2023 09:42-0400 Heart rate 75 /min Sharla MONTIEL [facility] 07-02-2023 09:42-0400 Respiratory rate 17 /min Sharla MONTIEL [facility] 07-02-2023 09:42-0400 Systolic blood pressure 137 mm[Hg] Sharla MONTIEL [facility] 05-23-2023 13:45-0500 Body height 177.8 cm Jeana Parra DO [facility] 05-23-2023 13:45-0500 Body mass index (BMI) [Ratio] 28.5 kg/m2 Jeana Parra DO Work [facility] 05-23-2023 13:45-0500 Body weight 90.08 kg Jeana Parar DO Work Phone: [facility] 05-23-2023 13:45-0500 Diastolic blood pressure 85 mm[Hg] Jeana Parra DO [facility] 05-23-2023 13:45-0500 Heart rate 63 /min Jeana Parra DO Work [facility] 05-23-2023 13:45-0500 Systolic blood pressure 134 mm[Hg] Jeana Parra DO Work Phone: [facility] 04-24-2023 13:03-0500 Body mass index (BMI) [Ratio] 29.1 kg/m2 Keerthi Gill MD Work Phone: [facility] 04-24-2023 13:03-0500 Body temperature 97.7 [degF] Keerthi Gill MD [facility] Phone: [facility] 04-24-2023 13:03-0500 Body weight 91.99 kg Keerthi Gill MD Work Phone: [facility] 04-24-2023 13:03-0500 Diastolic blood pressure 78 mm[Hg] Keerthi Gill MD Work Phone: [facility] [employer] [facility] 04-24-2023 13:03-0500 Heart rate 71 /min Keerthi Gill MD Work Phone: [facility] [employer] [facility] 04-24-2023 13:03-0500 SaO2% (BldA) [Mass fraction] 97 % Keerthi Gill MD Work Phone: [facility] 04-24-2023 13:03-0500 Systolic blood pressure 134 mm[Hg] Keerthi Gill MD Work Phone: [facility] 10-09-2022 08:31-0400 Blood Pressure Location Sharla MONTIEL [facility] 10-09-2022 08:31-0400 Diastolic blood pressure 74 mm[Hg] Sharla MONTIEL [facility] 10-09-2022 08:31-0400 Heart rate 80 /min Sharla MONTIEL [facility] 10-09-2022 08:31-0400 Respiratory rate 16 /min Sharla MONTIEL [facility] 10-09-2022 08:31-0400 Systolic blood pressure 130 mm[Hg] Sharla MONTIEL [facility] 05-01-2022 09:15-0500 Blood Pressure Location Sharla MONTIEL [facility] 05-01-2022 09:15-0500 Diastolic blood pressure 84 mm[Hg] Sharla MONTIEL [facility] 05-01-2022 09:15-0500 Heart rate 75 /min Sharla MONTIEL [facility] 05-01-2022 09:15-0500 Respiratory rate 16 /min Sharla MONTIEL [facility] 05-01-2022 09:15-0500 Systolic blood pressure 129 mm[Hg] Sharla MONTIEL [facility] 04-27-2022 07:35-0500 Body height 177.8 cm DO Monica Cori Work Phone: [facility] 04-27-2022 07:35-0500 Body weight 88.45 kg DO Monica Cori Work Phone: [facility] 04-19-2022 13:20-0500 Blood Pressure Location DONALD LEOLA [facility] 04-19-2022 13:20-0500 Diastolic blood pressure 74 mm[Hg] DONALD LEOLA [facility] 04-19-2022 13:20-0500 Heart rate 72 /min DONALD LEOLA [facility] 04-19-2022 13:20-0500 Respiratory rate 16 /min DONALD LEOLA [facility] 04-19-2022 13:20-0500 Systolic blood pressure 126 mm[Hg] DONALD LEOLA [facility] 10-28-2021 10:27-0400 Blood Pressure Location Sharla MONTIEL [facility] 10-28-2021 10:27-0400 Diastolic blood pressure 81 mm[Hg] Sharla MONTIEL [facility] 10-28-2021 10:27-0400 Heart rate 54 /min Sharla MONTIEL [facility] 10-28-2021 10:27-0400 Respiratory rate 16 /min hSarla MONTIEL [facility] [place] 10-28-2021 10:27-0400 Systolic blood pressure 134 mm[Hg] Sharla MONTIEL [facility] [place] 08-17-2021 10:03-0400 Blood Pressure Location Sharla MONTIEL [facility] [place] 08-17-2021 10:03-0400 Diastolic blood pressure 87 mm[Hg] Sharla MONTIEL [facility] [place] 08-17-2021 10:03-0400 Heart rate 58 /min Sharla MONTIEL [facility] [place] 08-17-2021 10:03-0400 Systolic blood pressure 134 mm[Hg] Sharla MONTIEL [facility] [place] [employer] Encounters Encounter Date Encounter Type Care Provider Facility Start: 01-09-2025 ambulatory Sharla MONTIEL Facili ty:[facility] Start: 03-06-2024 ambulatory Sharla MONTIEL Facili ty:[id number] Start: 01-07-2024 End: 01-07-2024 ambulatory Sharla MONTIEL Facility:[facility] Start: 01-07-2024 End: 01-07-2024 Patient encounter procedure Sharla MONTIEL [facility] [facility] Start: 07-31-2023 End: 07-31-2023 ambulatory [facility] Start: 07-30-2023 End: 07-30-2023 Patient encounter procedure MD Sharla Montiel Work Phone: [facility] [place] Work Phone: Start: 07-30-2023 End: 07-30-2023 ambulatory NON STAFF [facility] Work Phone: Start: 07-02-2023 End: 07-02-2023 ambulatory Sharla MONTIEL Facility:[facility] Start: 07-02-2023 End: 07-02-2023 Patient encounter procedure Sharla MONTIEL [facility] Start: 05-23-2023 End: 05-23-[address] [facility] Start: 05-23-2023 End: 05-23-2023 Office outpatient visit 15 minutes [facility] DO Work Phone: [facility] Comment on above: Acute epididymitis ( Primary Dx); Non-recurrent unilateral inguinal hernia without obstruction or gangrene; Epididymitis Start: 04-26-2023 End: 04-27-2023 ambulatory [facility] Start: 04-24-2023 End: 04-24-2023 [facility] Start: 04-24-2023 End: 04-24-2023 Office outpatient visit 25 minutes Keerthi Gill MD Work Phone: [facility] Comment on above: Non-recurrent unilat eral inguinal hernia without obstruction or gangrene (Primary Dx); Flank pain Start: 04-06-2023 End: 04-06-2023 ambulatory BRITT REYES Not Available Start: 04-04-2023 ambulatory Sarah Stone CMA [facility] Quality - Care Coordination Team Start: 04-04-2023 Coordination of care plan Sarah ventura CMA [facility] Quality - Care Coordination Team Start: 03-22-2023 End: 03-22-[address] [facility] Start: 10-09-2022 End: 10-09-2022 Patient encounter procedure Sharla MONTIEL [facility] Start: 09-18-2022 End: 09-18-2022 Patient encounter procedure Sharla MONTIEL [facility] Start: 08-29-2022 End: 08-29-2022 Patient encounter procedure Sharla MONTIEL [facility] Start: 08-25-2022 End: 08-25-[address] DOCTOR HALEY Facility:[facility] Start: 08-17-2022 End: 08-18-[address] DOCTOR HALEY Facility:[facility] Start: 08-12-2022 Encounter for preprocedural cardiovascular examination DR SHARLA MONTIEL . [facility] Start: 08-12-2022 Encounter for preprocedural laboratory examination DR SHARLA MONTIEL . [facility] Start: 08-09-2022 End: 08-10-[address] SHARLA MONTIEL . Facility:[facility] Start: 08-09-2022 End: 08-10-2022 Encounter for preprocedural cardiovascular examination DR SHARLA MONTIEL . Facility:[facility] Start: 07-28-2022 End: 07-28-[address] DOCTOR HALEY Facility:[facility] Start: 06-14-2022 End: 06-15-[address] GIOVANNY ZAYAS Facility:[facility] Start: 06-14-2022 End: 06-14-2022 Patient encounter procedure DONALD BHAGAT [facility] Start: 05-01-2022 End: 05-01-2022 Patient encounter procedure Sharla MONTIEL [facility] Start: 04-27-2022 End: 04-27-2022 ambulatory DO Monica G Cori Work Phone: [facility] Work Phone: Start: 04-27-2022 End: 04-27-2022 Patient encounter procedure DO Monicaheather Parahm Work Phone: [facility] [place] Work Phone: Start: 04-19-2022 End: 04-20-[address] GIOVANNY ZAYAS Facility:[facility] Start: 04-19-2022 End: 04-19-2022 Patient encounter procedure DONALD BHAGAT [facility] Start: 10-28-2021 End: 10-28-2021 Lab Drop off Sharla MONTIEL [facility] Start: 10-28-2021 End: 10-28-2021 Patient encounter procedure Sharla MONTIEL [facility] Start: 10-06-2021 End: 10-06-[address] SHARLA MONTIEL . Facility:[facility] Start: 09-28-2021 End: 09-29-[address] SHARLA MONTIEL . Facility:[facility] Start: 08-17-2021 End: 08-17-2021 Patient encounter procedure Sharla MONTIEL [facility] Procedures Date Procedure Procedure Detail Performing Clinician Start: 07-30-2023 MR prostate wo/w con MD Sharla Montiel Work Phone: Start: 03-22-2023 Adult depression scr eening assessment Sarah Stone [employer] Start: 11-27-2022 Colonoscopy Sarah ventura [employer] Start: 08-29-2022 Cystoscopic removal of ureteric stent [...] for malign ant neoplasm of colon Colonoscopy [facility] Start: 06-27-2024 DTaP,Tdap and Td Vac cines (2 - Td or Tdap) DTaP,Tdap and Td Vaccines (2 - Td or Tdap) [facility] Start: 05-23-2024 Adult BMI Screening Adult BMI Screen ing [facility] Start: 05-23-2024 Tobacco Screening Tobacco Screening [facility] Start: 04-24-2024 Adult BMI Screening Adult BMI Screen ing [facility] Start: 04-24-2024 Tobacco Screening Tobacco Screening [facility] Start: 04-04-2024 Fall Risk Screening Fall Risk Screen ing [facility] Start: 03-22-2024 Adult BMI Screening Adult BMI Screen ing [facility] Start: 03-22-2024 Depression Screening Depression Scre ening [facility] Start: 03-22-2024 Fall Risk Screening Fall Risk Screen ing [facility] Start: 03-22-2024 Tobacco Screening Tobacco Screening [facility] Start: 09-25-2023 End: 09-25-2023 Patient encounter procedure 09/25/2023 10:15 AM EDT Office Visit [facility] [address] [place] [address] [phone] Keerthi Gill MD [address] [place], [place] [phone] [facility] Start: 05-02-2023 End: 05-02-2023 Patient encounter procedure 05/02/2023 9:15 AM EST Office Visit [facility] General Surgery [address] [place] [address] [phone] Jeana Parra DO [address] [place], [place] [phone] [facility] Start: 04-26-2023 End: 04-26-2023 Patient encounter procedure [facility] Start: 04-24-2023 End: 04-24-2024 US Retroperitoneum Ultrasound retroperitoneal complete Imaging Routine Flank pain Expected: 04/24/2023, Expires: 04/24/2024 [facility] Comment on above: Expected: 04/24/2023 , Expires: 04/24/2024 Start: 04-24-2023 End: 04-24-2024 US Scrotum and testicle Ultrasound scrotum Imaging Routine Non-recurrent unilateral inguinal hernia without obstruction or gangrene Expected: 04/24/2023, Expires: 04/24/2024 [facility] Work Phone: Comment on above: Expected: 04/24/2023 , Expires: 04/24/2024 Start: 12-01-2022 COVID-19 Vaccine (5 - 2023-24 season) COVID-19 Vaccine (2022- season) [facility] Start: 12-01-2022 Influenza vaccination Influenza Vacc ine [facility] Start: 09-23-2007 Administration of varicella zoster vaccine Zoster (Shingles) Vaccine (1 of 2) [facility] Start: 09-23-1975 Adult BMI Follow Up Plan Adult BMI F ollow Up Plan [facility] Start: 1955 Medicare Annual Well ness Visit Medicare Annual Wellness Visit [facility] Immunizations Immunization Date Immunization Notes Care Provider Brittnee agustin 03-03-2022 SARS-CoV-2 (COVID-19 ) [id number] Sharla MONTIEL [facility] 08-20-2021 SARS-CoV-2 (COVID-19 ) mRNA-1273 vaccine Sharla MONTIEL [facility] 03-02-2021 SARS-CoV-2 (COVID-19 ) mRNA-1273 vaccine Sharlaastrid MONTIEL [facility] 02-20-2021 SARS-CoV-2 (COVID-19 ) mRNA-1273 vaccine Sharlaastrid MONTIEL [facility] 01-23-2021 SARS-CoV-2 (COVID-19 ) mRNA-1273 vaccine Sharla MONTIEL [facility] 06-27-2014 tetanus toxoid, redu juventino diphtheria toxoid, and acellular pertussis vaccine, adsorbed Sharla MONTIEL [facility] Payers Date Payer Category Payer Self-pay [id number] 2023 Medicare [id number] 2014 Unknown BCBS [facility] HMO/PPO/TRUST [id number] 2014-Present [phone] [address] [place] [address] [id number] 1959 Unknown [id number] 1957 Unknown [id number] 2.16.840.1.609868.3.579.2.593 1957 Unknown [id number] 2.16.840.1.669364.3.579.2.593 1957 Unknown [id number] 2.16.840.1.618165.3.579.2.593 1957 Unknown [id number] 2.16.840.1.200682.3.579.2.593 1957 Unknown [id number] 2.16.840.1.925188.3.579.2.593 1957 Unknown [id number] 2.16.840.1.854640.3.579.2.593 1957 Unknown [id number] 2.16.840.1.079985.3.579.2.593 1957 Unknown [id number] 2.16.840.1.870322.3.579.2.593 1957 Unknown [id number] 2.16.840.1.321205.3.579.2.125 9 1957 Unknown [id number] 2.16.840.1.570241.3.579.2.128 6 1957 Unknown [id number] 2.16.840.1.940073.3.579.2.128 6 1957 Unknown [id number] 2.16.840.1.669583.3.579.2.128 6 1957 Unknown [id number] 2.16.840.1.652246.3.579.2.128 6 1957 Unknown [id number] 2.16.840.1.841938.3.579.2.128 6 1957 Unknown [id number] 2.16.840.1.915562.3.579.2.128 6 1957 Unknown [id number] 2.16.840.1.943383.3.579.2.727 1955 Unknown [id number] 2.16.840.1.462380.3.579.2.727 1957 Unknown [id number] 2.16.840.1.803054.3.579.2.727 Medicare Medicare-OP No Part B [id number] Unknown [id number] 2.16.840.1.168582.3.579.2.531 Social History Date Type Detail Facility Start: 08-17-2021 End: 01-07-2024 Tobacco smoking status Never smoked tobacco (finding) [facility] Start: 04-19-2022 Tobacco smoking status Never [facility] Start: 04-23-2020 End: 03-22-2023 Sex Assigned At Male [facility] Start: 1955 Sex Assigned At Male [facility] Start: 07-17-2022 Tobacco use and exposure Smokeless tobacco non-user [facility] Start: 03-22-2023 End: 05-23-2023 Alcohol intake Lifetime [facility]-drinker (finding[facility] Start: 04-23-2020 End: 03-22-2023 History of Social function [facility] Start: 1955 Sex Assigned At Not on file [facility] Functional Status Date Assessment Result Facility 01-07-2024 Functional Status N/A [facility] 07-02-2023 Functional Status N/A [facility] 10-09-2022 Functional Status N/A [facility] 05-01-2022 Functional Status N/A [facility] 04-19-2022 Functional Status N/A [facility] 10-28-2021 Functional Status N/A [facility] Clinical Notes 08-16-2021 to 01-07-2024 Jeana Parra, [...] treatment? Where to find more information The [place] [employer]: www.cancer.org [place] [employer]: www.auanet.org Contact a health care [...] provider. Document Revised: 09/12/2021 Document Reviewed: 09/12/2021 HomeStay Patient Education 2023 [employer]. Follow Up Care 07/02/2023 10:58:48 With:SOFIYA MAGANA, Sharla Layton, URL Address: [facility] [address] , [place] [address]- [phone] When: Unknown Comments:1 yr w/ PSA [facility] 01-07-2024 Note Patient Education Oncology Prostate Cancer [...] Where to find more information ? The [place] [employer]: www.cancer.org ? [place] [employer] Association: www.auanet.org Contact a health care [...] of the rectum. (more content not included)... [facility] 07-02-2023 Hospital Discharge instructions Patient Education 07/02/2023 [...] treatment? Where to find more information The [place] [employer]: www.cancer.org [place] [employer]: www.auanet.org Contact a health care [...] provider. Document Revised: 09/12/2021 Document Reviewed: 09/12/2021 HomeStay Patient Education 2022 [employer]. Follow Up Care 01/08/2023 10:36:36 With:SOFIYA MAGANA, Sharla Layton, URL Address: [facility] [address] [place] [address] [phone] When: Unknown Comments:6 mos w/ PSA [facility] 05-23-2023 History of Present illness Narrative Images from the original note were not included. [facility] [address] [facility] [phone] CONSULT NOTE Zander Ponce 67 y.o. CHIEF COMPLAINT Chief Complaint Patient presents with Hernia Unilateral inguinal hernia, referred by Dr. Jose Alfredo Ponce is a 67-year-old male who presents [...] and does not rest. He also plays Hangtime 2 times a week. He is very [...] 11/27/2022 Performed by Jeana Parra DO at [facility] COLONOSCOPY N/A 01/07/2018 Performed by Jeana Parra DO at [facility] FINGER SURGERY Left LEFT THUMB TONSILLECTOMY [...] support 24 hours a day or the [place] fitting underwear he has and if not [...] Referring and communicating with other health care director rn No primary diagnosis found. Jeana Parra, This note was created with the assistance of a speech recognition program. While intending to generate a timely document that accurately reflects the content of the visit, no guarantee can be provided that every grammatical or spelling mistake has been or will be identified or corrected. Thank you for your understanding. documented in this encounter [facility] 04-24-2023 History of Present illness Narrative Images from the original note were not included. [address] [place] [phone] Patient: Zander Ponce Date of : 1955 [...] or gangrene - Ultrasound scrotum; Future - [facility] - [place], [place]; Future 67-year-old gentleman who has recently had a colonoscopy completed by Dr. Potts. Will refer to Dr. Parra consideration for surgical intervention. KEERTHI GILL MD Family Medicine Physician [facility] / [facility] 04/24/23 This note was completed with voice recognition software. The document was reviewed for errors however some may still be present. Please do not hesitate to contact/Epic msg the author to verify any questions/concerns. documented in this encounter [facility] 04-04-2023 History of Present illness Narrative Date of Call: April 04, 2023 Date of Positive Fall Risk Screenin03/22/2023 PT Referral Placed by PCP: No Result of Call: Answered Patient consent to enroll in Program: No Status of PT Referral: Patient declined Goals: Resources Provided: Additional Comments: Patient completed fall risk screening but declines program participation. documented in this encounter [facility] 10-09-2022 Hospital Discharge instructions Patient Education [...] Follow these instructions at home: Medicines Take yuem-fmj-iwqeowz and prescription medicines only as told by [...] or the blood stops without treatment. Take jqmy-ptj-voxxcvt and prescription medicines only as told by your health care provider. Drink enough fluid to keep your urine pale yellow. This information is not intended to replace advice given to you by your health care provider. Make sure you discuss any questions you have with your health care provider. Document Revised: 11/17/2020 Document Reviewed: 11/17/2020 HomeStay Patient Education 2022 [employer]. Follow Up Care 10/02/2022 10:55:28 With:SOFIYA MAGANA, Sharla Layton, URL Address: [facility] [address] , [place] [phone] When:Within 3 Month(s) [facility] 08-29-2022 Hospital Discharge instructions Patient Education [...] including vitamins, herbs, eye drops, creams, and ryde-fwm-xvhffnn medicines. Any problems you or family members [...] provider tells you to take them. Taking sawv-xsg-yhkanzy medicines, vitamins, herbs, and supplements. Surgery safety [...] provider. Document Revised: 12/13/2021 Document Reviewed: 12/13/2021 HomeStay Patient Education 2022 [employer]. Follow Up Care 08/24/2022 09:38:00 With:SOFIYA MAGANA, Sharla Layton, URL Address: [facility] [address] , [place] [address]- Business (1) When: Unknown [facility] 05-01-2022 Hospital Discharge instructions Patient Education [...] include: ?Spinach. ?Rhubarb. ?Beets. ?Potato chips and kazakh fries. ?Nuts. If you regularly take a diuretic medicine, make sure to eat at least 1 2 fruits or vegetables high in potassium each day. These include: ?Avocado. ?Banana. ?[place], prune, carrot, or tomato juice. ?Baked potato. [...] Casseroles. Pizza. Lasagna. Frozen meals. Potato chips. Zimbabwean fries. Summary You can reduce your risk [...] 07/14/2011 Document Revised: 07/09/2019 Document Reviewed: 02/27/2017 HomeStay Patient Education 2020 [employer]. Follow Up Care 10/28/2021 11:17:16 With:SOFIYA MAGANA, Sharla Layton, URL Address: [facility] [address] , [place] [address]- When: Unknown [facility] 04-19-2022 Hospital Discharge instructions Patient Education 04/19/2022 13:43:01 Kidney Stones, Vfdw-kt-Mqcd Kidney Stones Kidney stones are rock-like masses [...] Follow these instructions at home: Medicines Take syqc-tll-zohyrlu and prescription medicines only as told by [...] 09/04/2008 Document Revised: 08/05/2019 Document Reviewed: 08/05/2019 HomeStay Patient Education 2019 [employer]. Follow Up Care 04/17/2022 09:12:19 With:SOFIYA MAGANA, Sharla Layton, URL Address: [address] [place], [place] [id number]- When: Unknown [facility] 10-28-2021 Hospital Discharge instructions Patient Education [...] one of these risk factors: ?Being of -[place] descent. ?Having a family history of prostate [...] you: Are older than age 55. Are -[place]adian. Have a father, brother, or uncle who [...] 12/28/2017 Document Revised: 03/01/2018 Document Reviewed: 12/28/2017 HomeStay Patient Education 2020 [employer]. Follow Up Care 08/17/2021 11:01:21 With:SOFIYA MAGANA, Sharla Layton, URL Address: [facility] [address] , [place] [address] [phone] When:Within 6 Month(s) Comments:w/ PSA and KUB [facility] 08-16-2021 Hospital Discharge instructions Patient Education [...] one of these risk factors: ?Being of -[place] descent. ?Having a family history of prostate [...] you: Are older than age 55. Are -[place]adian. Have a father, brother, or uncle who [...] 12/28/2017 Document Revised: 03/01/2018 Document Reviewed: 12/28/2017 HomeStay Patient Education 2020 [employer]. Follow Up Care 06/27/2021 09:31:40 With:Sharla MONTIEL MD, URL Address: [facility] [address] [place] [address]- When:10/17/2021 [facility] Evaluation + Plan note Future Appointments Appointment Date:10/28/2021 09:45:00 AM Scheduled Provider:Sharla MONTIEL MD Location:[facility] Appointment Type:URO Office Visit Diagnostic Tests PendingPSA Total 08/17/21 [facility] Evaluation + Plan note Future Appointments Appointment Date:05/01/2022 09:15:00 AM Scheduled Provider:Sharla MONTIEL MD Location:[facility] Appointment Type:URO Office Visit Diagnostic Tests PendingPSA Total 10/28/21 [facility] Evaluation + Plan note Future Appointments Appointment Date:05/01/2022 09:15:00 AM Scheduled Provider:Sharla MONTIEL MD Location:[facility] Appointment Type:URO Office Visit Diagnostic Tests PendingCalculi Analysis Urinary 10/28/21 [facility] Evaluation + Plan note Future Appointments Appointment Date:05/01/2022 09:15:00 AM Scheduled Provider:Sharla MONTIEL MD Location:[facility] Appointment Type:URO Office Visit [facility] Evaluation + Plan note Future Appointments Appointment Date:10/30/2022 10:30:00 AM Scheduled Provider:[facility]ar[facility]EL [facility] Type[facility] Office Visit Diagnostic Tests PendingPSA Total 05/01/22 [facility] Evaluation + Plan note Future Appointments Appointment Date:10/30/2022 10:30:00 AM Scheduled Provider:Sharla MONTIEL MD Location:[facility] Appointment Type:URO Office Visit [facility] Evaluation + Plan note Future Appointments Appointment Date:02/05/2023 11:30:00 AM Scheduled Provider:Sharla MONTIEL MD [facility] Type:URO Office Visit [facility] Evaluation + Plan note Future Appointments Appointment Date:01/08/2023 09:30:00 AM Scheduled Provider:Sharla MONTIEL MD Location:[facility] Appointment Type:URO Office Visit [facility] Evaluation + Plan note Future Appointments Appointment Date:01/07/2024 11:15:00 AM Scheduled Provider:Sharla MONTIEL MD Location:[facility] Appointment Type:URO Office Visit Diagnostic Tests PendingPSA Total 07/02/23 [facility] Evaluation + Plan note Future Appointments Appointment Date:01/09/2025 10:45:00 AM Scheduled Provider:Sharla MONTIEL MD Location:[facility] Appointment Type:URO Office Visit Diagnostic Tests PendingPSA Total 01/07/24 [facility] Evaluation note No assessment inform ation available [facility] Work Phone: Evaluation note Diagnosis Non-recurrent [...] [facility] Hospital Discharge instructions No data available for this section [facility] filedocumented in this encounter [facility] filedocumented in this encounter [facility]Not on filedocumented in this encounter [facility] No data available for this section [facility] reason for referral (narrative)* Consultation (Routine) - Authorized Specialty Diagnoses / Procedures Referred By Kirstin abdalla Referred To Contact General Surgery Diagnoses Non-recurrent unilateral inguinal hernia without obstruction or gangrene Keerthi Gill MD [address] [place] [address] Jeana Parra DO [address] [place] [id number] Referral ID Status Reason Start Date Expiration Date Visits Requested Visits Authorized [id number] Authorized Specialty Services Required 04/24/2023 04/23/2024 1 1 [facility] Summary Purpose Family History No Family History Records FoundNo Family History Records FoundNo Family History Records FoundNo Family History Records FoundNo Family History Records Found No data available for this section No Family History Records Found No data available [...] section and content) DATE CREATED AUTHOR 03/10/2019 [facility] DATE CREATED AUTHOR AUTHOR'S ORGANIZ ATION 06/04/2021 [facility] DATE CREATED AUTHOR AUTHOR'S ORGANIZ ATION 09/10/2022 [facility] [place] [facility] DATE CREATED AUTHOR AUTHOR'S ORGANIZ ATION 04/07/2023 [facility] DATE CREATED AUTHOR AUTHOR'S ORGANIZ ATION 04/29/2023 [facility] DATE CREATED AUTHOR AUTHOR'S ORGANIZ ATION 08/01/2023 [facility] DATE CREATED AUTHOR AUTHOR'S ORGANIZ ATION 02/16/2024 [facility] DATE CREATED AUTHOR AUTHOR'S ORGANIZ ATION 03/02/2024 [facility] Care Team (unrecognized sect ion and content) Team Status: Inactive Member Role Status Dates Krishna Solorio DO Attending Provider Active Monica Parham DO Primary Care Provider Active Team Status: Active Member Role Status Dates Monica Parham , Primary Care Provider Active Spragger Relationship Specialty Start Date End Date Keerthi Gill MD [address], [place] [address] PCP - General Internal Medicine 03/22/23 Spragger Relationship Specialty Start Date End Date Keerthi Gill MD [address], [facility] [place], [place] [id number] PCP - General Internal Medicine 03/22/23 Spragger Relationship Specialty Start Date End Date Kerethi Gill MD [address], [facility] [place] [facility] [place], [place] [id number] PCP - General Internal Medicine 03/22/23 Team [...] Gill MD [address], [place] [address] Jeana Parra DO [address] [place] [id number] Referral ID Status Reason Start Date Expiration Date Visits Requested Visits Authorized [id number] Pending Review Specialty Services Required 04/24/2023 04/23/2024 [...] BE BASED ON THE PRIMARY CLINICAL RECORDS. [email or web address] [facility]. provides no warranty or guarantee of the accuracy or completeness of information in this document.
--- NOTE | 2024-03-06 08:53 | XR_ITS ---
[address] [address] Patient Name: KATHERINE PONCE MRN: [id number] date: 1955 Sex: M Assigned Patient Location: [facility] Current Patient Location: [facility] Accession/Order Number: [id number] Exam Date: 03/06/2024 09:05 Report Date: 03/06/2024 10:08 At the request of: SHARLA ARRIAZA Procedure: XR abdomen 1V EXAMINATION: XR abdomen 1V HISTORY: kidney sto pascale COMPARISON: 01/07/2024 FINDINGS: KIDNEY/URETER - RIGHT: No visible renal or ureteral calcifications. KIDNEY/URETER - LEFT: No visible renal or ureteral calcifications. PELVIS: No visible ureteral calcifications. Any visible calcifications favor phleboliths. BOWEL: No abnormal dilation or deviation. BONES: No acute abnormality. Moderate degenerative changes of the spine OTHER: Negative. No abnormal gaseous collections. XR/XR abdomen 1V IMPRESSION: Moderate degenerative changes of the spine No definite urinary tract calculi Electronically authenticated by: GIOVANNY ZAYAS Date: 03/06/2024 10:08
[2024-03-06] MEDS: LACTATED RINGER'S SOLUTION 1,000 ML 50 ML IV (09:28)
[2024-03-06] MEDS: CEFAZOLIN SODIUM 2 GM/50 ML D5W PREMIX IV (09:28)
--- NOTE | 2024-03-06 10:40 | P.URON_ITS ---
Urology Surgery Operative Note Operative Note Procedure Date: 03/06/24 Time Out Performed: yes Pre-op Diagnosis: Right nephrolithiasis Post-op Diagnosis: other (Right nephrolithiasis and right ureterolithiasis) Procedures performed: 1. Cystoscopy. 2. Right rigid ureteral dilation. 3. Right ureteroscopy. 4. Thulium laser lithotripsy of a large right ureteral calculus. 5. Right pyeloscopy. 6. Thulium laser lithotripsy of multiple right renal calculi. 7. Placement of 6 Trinidadian variable length right ureteral stent. Anesthesia: General-LMA Primary Surgeon: Andrea Montiel Complications: None Estimated blood loss (mL): 5 Findings: 1. Large right proximal ureteral calculus. 2. Multiple right renal calculi Specimens: None Drains: 6 Trinidadian variable length right ureteral stent and Indications for Procedures: This gentleman has recurrent right nephrolithiasis. The by CAT scan it was documented to be 1.5 cm in size. He recently passed a few stones. He still has some right flank pain. KUB done preoperatively reveals blurred view of the kidney due to dense bowel contents. The patient was desirous to proceed forward with the procedure. He has signed an informed consent after risks were explained. Detailed description of Procedure: The patient was brought to the operating room and placed on the operating room table in the supine position. SCDs were placed on the lower extremities and turned on and functioning during the entire case. Timeout was done by all parties in the room. We all agreed upon the patient's identification and the planned procedures for this patient. Genn. anesthesia was then administered. The patient was then repositioned into the modified dorsal lithotomy position. All pressure points were satisfactorily padded. Genitalia were sterilely prepped and draped in usual fashion. I started by passing a 22 Trinidadian Olympus cystoscope per urethra and into the bladder. The anterior urethra was normal. Prostatic urethra showed by lobar hypertrophy but his channel was open. Panendoscopy in the bladder revealed no evidence of any tumors or stones. While using fluoroscopy I was unable to appreciate any stones. I passed a Glidewire through the scope and cannulated the right ureter and was able to get it up into the right kidney without difficulty. Interestingly, as soon as this was done I experienced a moderate E flux of pressure and urine from the right ureter into the kidney suggesting a ureteral stone or stricture. I then used a 10 Trinidadian dilator and passed this over the wire and dilated the distal ureter. The dilator and scope were removed. I then passed a 10/12 Trinidadian ureteral access sheath over the wire and up the ureter to the L5 position. The stylette and wire were then removed. I then passed a flexible ureteroscope through the access sheath and into the ureter. I ascended up the ureter and at the L3 level I arrived at the large yellow stone. I then passed a 270 Angstrom laser fiber through the scope and made contact with the stone. While using the thulium laser we did laser lithotripsy at 6 W continuously. The stone was rather hard and we had raised the laser up to 10 W. Once this stone was entirely dusted I then ascended up the ureter and then went into the kidney. I went into all the calyces in the upper mid and lower poles. There were multiple stones in the midpole calyces. Were also a few in the lower pole. I started in the midpole and similarly used the laser fiber and did lithotripsy at 10 W under the dusting mode. Once all of the midpole stones were dusted I then went into the lower pole and similarly dusted all the stones visible. Upon completion there was no evidence of any stones remaining. The scope was then removed. I then passed a Glidewire through the sheath up into the kidney and remove the sheath. Cystoscope was backloaded over the wire and passed into the bladder. I then slid a 6 Trinidadian variable length stent over the wire up into the kidney. The wire was removed and there were good curls in the kidney and in the bladder. Bladder was drained of its contents and the scope was then removed. He was then transferred to a [facility] bed and wheeled to PACU in stable condition.
[2024-03-06] MEDS: SOLIFENACIN SUCCINATE 10 MG TABLET PO (11:05)
[2024-03-06] MEDS: HYDROMORPHONE HCL 0.5 MG/0.5 ML SYRINGE IV ×2 (11:11→11:18)
[2024-03-06] MEDS: KETOROLAC TROMETHAMINE 30 MG/ML VIAL IVP (11:41)
--- NOTE | 2024-03-06 12:35 | PC.NURSE ---
1220: pt ambulates to bathroom with minimal assistance,pt voids without difficulty. urine bloody with no clots.
[2024-03-11 14:09] LABS: Calcium Oxalate Dihydrate 10 % (.); Calcium Oxalate Monohydrate 80 % (.); Size 6x4 mm (.); Uric Acid 10 % (.)
== END 2024-03-06 12:30 | disposition home or self-care (01) ==
PROVIDERS: Visit Provider Urology
PROC: (CPT 918; principal; 2024-03-06 09:30)
DX: N20.2 Calculus of kidney with calculus of ureter (principal); R97.20 Elevated prostate specific antigen [PSA]; N40.0 Benign prostatic hyperplasia without lower urinary tract symptoms
CPT/HCPCS: 52356; 36415; 74018; 76000; 82365; J0690; J1100; J1171; J1885; J2250; J2405; J2704; J3010

== ENCOUNTER 2024-03-13 10:14 | Outpatient (OUT) | payer BC, SELFPAY ==
--- NOTE | 2024-03-13 10:21 | XR_ITS ---
[address] [address] Patient Name: KATHERINE PONCE MRN: [id number] date: 1955 Sex: M Assigned Patient Location: [facility] Current Patient Location: [facility] Accession/Order Number: [id number] Exam Date: 03/13/2024 10:23 Report Date: 03/13/2024 11:03 At the request of: SHARLA ARRIAZA Procedure: XR abdomen 1V EXAMINATION: XR abdomen 1V HISTORY: Kidney Stone, Status Post Stent Placement COMPARISON: 03/06/2024 FINDINGS: KIDNEY/URETER - RIGHT: Right double-J ureteral stent in normal position KIDNEY/URETER - LEFT: No visible renal or ureteral calcifications. PELVIS: No visible ureteral calcifications. Any visible calcifications favor phleboliths. BOWEL: No abnormal dilation or deviation. BONES: No acute abnormality. OTHER: Negative. No abnormal gaseous collections. XR/XR abdomen 1V IMPRESSION: Right double-J ureteral stent. Electronically authenticated by: GIOVANNY ZAYAS Date: 03/13/2024 11:03
--- OUTSIDE RECORDS SUMMARY | 2024-03-13 10:30 | XMS_ITS | CCD ---
Author Organization [facility] Care Team Providers Care Cloth Shrinking Supervisor Name Role Phone MONICA PARHAM Primary Care [...] Jose Alfredo Keerthi MAGANA Primary Care Provider [phone] BRITT REYES Attending Unavailable JOSE ALFREDO, MUHAMID [...] Drug Allergy Unknown (qualifier value) [facility] (12 sources) Sulfonamides (Antibiotic); Translations: [sulfa drugs] Drug allergy Itching (finding), Weal (disorder) [facility] (1 source) Sulfonamides (Antibiotic) Drug allergy (disorder) 08-23-19 [facility] (5 sources) Sulfonamides (Antibiotic); Translations: [SULFA (SULFONAMIDE ANTIBIOTICS)] Propensity to adverse reactions to drug 09-22-19 [facility] Sulfonamides (Antibiotic) Drug allergy (disorder) 06-13-19 19 [facility] Repository Medications Current Medications Medication Drug [...] day(s), # 28 cap(s), Refills(s) 0, Pharmacy: [facility]/pharmacy #[id number], 179, cm, 05/01/22 9:25:00 EST, Height/Length Dosing, 88, kg, 05/01/22 9:25:00 EST, Weight Dosing Start Date: 09/18/22 Stop Date: 10/02/22 Status: Ordered dutasteride 0.5 mg oral capsule (4 sources) 5-alpha Reductase Inhibitor Start: 10-09-2022 take 1 capsule by mouth once daily dutasteride 0.5 mg Cap 0.5 mg = 1 cap(s), Oral, Daily, # 30 cap(s), Refills(s) 11, Pharmacy: [facility] #[id number], 178, cm, 10/09/22 8:32:00 EDT, Height/Length Dosing, [...] day(s), # 14 tab(s), Refills(s) 0, Pharmacy: [facility]/pharmacy #[id number], 179, cm, 05/01/22 9:25:00 EST, [...] tab(s), Oral, BID, 180 tab(s), Refill(s) 3, [facility]/pharmacy #[id number], 178, cm, 07/02/23 9:59:00 EDT, Height/Length Dosing, 90.2, kg, 07/02/23 9:59:00 EDT, Weight Dosing Start Date: 09/24/23 Status: Ordered Start: 09-18-2022 potassium CITR ATE 10 mEq ER Tab 10 mEq, 1 tab(s), Oral, BID, 90 tab(s), Refill(s) 3, [facility]/pharmacy #[id number], 179, cm, 05/01/22 9:25:00 EST, Height/Length Dosing, 88, kg, 05/01/22 9:25:00 EST, Weight Dosing Start Date: 09/18/22 Status: Ordered Start: 10-28-2021 potassium CITR ATE 10 mEq ER Tab 10 mEq, 1 tab(s), Oral, BID, 90 tab(s), Refill(s) 3, [facility]/pharmacy #[id number], 177.8, cm, 10/28/21 10:29:00 EDT, [...] Daily, # 90 cap(s), Refills(s) 3, Pharmacy: [facility]/pharmacy #[id number], 179, cm, 05/01/22 9:25:00 EST, [...] Chronic Other aftercare (1 source) 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 Normal Behzad [facility] Urology Office/Clinic Noteon 01-07-2024 Urology Office/Clinic Note [...] 07/02/23. 01/04/24 - 7.17 MRI 03/10/19 at [facility] - negative. TRUS/bx 2008 - negative. Prostate MRI 07/30/23 [facility] - Neg. PSA has decreased from prior. No indication for further intervention, will cont to monitor. 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 S/p TURP 08/17/22 - chronic prostatitis. Prostate MRI 07/30/23 [facility] - Prostate volume 89 mL. Stopped Dutasteride [...] [facility] [address], [place] [address] [phone] Additional Instructions: 1 yr w/ PSA Patient Education Prostate Cancer Screening IMarilu, personally scribed for Dr. Montiel on 01/07/2024 12:40:47. . Documentation recorded by the scribeMarilu, accurately reflects the services(s) I performed and decisions made by me. Authenticated by Dr. Mitchell (more content not included)... Normal [facility] Comment on above: Result Comment: Elec tronically Signed By: Sharla MONTIEL MD\.br\Date and Time Signed: 01/07/24 12:43 EDT\.br\Electronically Co-Signed By: Marilu Meng\Cassidybr\Date and Time Co-Signed: 01/07/24 12:41 EDT RAD - MRI Reporton RAD - MRI Report [id number] #1.00TIFF Normal [facility] ISTAT XRay CREon 07-30-2023 ISTAT GFR > 60.0 Normal [facility] Comment on above: Result Comment: PERF ORMED BY: [place] [address] PATHOLOGIST PROFESSOR OF POLITICAL SCIENCE TRENT STEWART M.D. Performed By: #### I SCRE #### [address] MR prostate wo/w conon 07-29 MR prostate wo/w con [facility] Main [place] [address] [place] [address] MRI Report Signed Patient: Zander Ponce MR#: [id number] : 1955 Acct:[id number] Age/Sex: 67 / M ADM Date: 07/30/23 Loc: MR Room: Type: [facility] Attending Dr: Sharla Montiel MD Copies to: [...] Ayala Jr., D.O.07/30/2023 6:41 PM Dictation Location: [facility]--15 Transcribed By: DAVID 07/30/231840 Dictated By: Terrell Ayala Jr, DO 07/30/231837 Signed By: 07/30/231840 Normal [facility] No Panel InformationOrdered By: Sharla Montiel on 07-30-2023 Bedside Estimated GFR (eGFR) > 60.0 [facility] Whole blood creatinine measu rementOrdered By: Sharla Montiel on 07-30-2023 Creatinine [Mass/Vol] 1.3 mg/dL Normal 0.6-1.3 [facility] Comment on above: ER/ESD physician is notified/shown all ISTAT results.Critical values may be confirmed by laboratory testing ifdeemed necessary by ER attending doctor. Result Comment: ER/E SD physician is notified/shown all ISTAT results. Critical values may be confirmed by laboratory testing if deemed necessary by ER attending doctor. Performed By: #### I SCRE #### [facility] [address] Ambulatory Visit Summaryon 0 07-02-2023 Ambulatory [...] MAGANA, Sharla Layton Where: [facility] Normal [facility] Insurance Correspondenceon 0 07-02-2023 Insurance Correspondence [id number] 5#1.00TIFF Normal [facility] Lab Reportson 07-02-2023 Lab Reports [id number] #1.00TIFF Normal [facility] Patient Educationon 07-02-19 Patient Education Oncology Prostate [...] Where to find more information ? The [place] [employer]: www.cancer.org ? [employer] [employer]: www.auanet.org Contact a health care [...] content not included)... Normal [facility] Urology Office/Clinic Noteon 07-02-2023 Urology Office/Clinic Note [...] 4.13 (Dutasteride 8.26) Last MRI 03/10/19 at [facility] - negative. TRUS/bx 2008 - negative. [...] [facility] [address], [place] [address]- [phone] Additional Instructions: 6 mos w/ PSA Patient Education Prostate Cancer Screening I, Marilu Meng, personally scri (more content not included)... Normal [facility] Comment on above: Result Comment: Elec tronically [...] Owen Pena on 04/26/2023 4:07 PM Normal [facility] US SCROTUMon 04-26-2023 US SCROTUM [...] Owen Pena on 04/26/2023 11:02 AM Normal [facility] US LELIA DOP LEG RTon [...] GIOVANNY ZAYAS Date: 2022-08-25 15:47 Normal [facility] PROF CHEM 8 (BAS METB)on Anion gap [Moles/Vol] 7.8 mmol/L Normal [facility] Comment on above: Performed By: #### B MP ####[facility] [address] [address]Dr. Leeanna Carlson Calcium [Mass/Vol] 9.1 mg/dL Normal 8.5-10.1 [facility] Comment on above: Performed By: #### B MP ####[facility] [address] [address]Dr. Leeanna Carlson Chloride [Moles/Vol] 105 mmol/L Normal 98-107 [facility] Comment on above: Performed By: #### B MP ####[facility] [address] [address]Dr. Leeanna Carlson CO2 [Moles/Vol] 28.6 mmol/L Normal 21.0-32.0 [facility] Comment on above: Performed By: #### B MP ####[facility] [address] [address]Dr. Leeanna Carlson Creatinine [Mass/Vol] 1.18 mg/dL Normal 0.70-1.30 [facility] Comment on above: Performed By: #### B MP ####[facility] [address] [address]Dr. Leeanna Carlson EGFR-AF MOZAMBICAN >60 Normal >=60 [facility] Comment on above: Performed By: #### B MP ####[facility] [address] [address]Dr. Leeanna Carlson EGFR-NON AF MOZAMBICAN >60 Normal >=60 [facility] Comment on above: Performed By: #### B MP ####[facility] [address] [place], [place] [address]Dr. Leeanna Carlson Glucose [Mass/Vol] 96 mg/dL Normal 74-106 [facility] Comment on above: Performed By: #### B MP ####[facility] [address] [place], [place] [address]Dr. Leeanna Carlson Potassium [Moles/Vol] 4.4 mmol/L Normal 3.5-5.1 [facility] Comment on above: Performed By: #### B MP ####[facility] [address] [place], [place] [address]Dr. Leeanna Carlson Sodium [Moles/Vol] 137 mmol/L Normal 136-145 [facility] Comment on above: Performed By: #### B MP ####[facility] [address] [place], [place] [address]Dr. Leeanna Aldo Urea nitrogen [Mass/Vol] 17.0 mg/dL Normal 7.0-18.0 [facility] Comment on above: Performed By: #### B MP ####[facility] [address] [place], [place] [address]Dr. Leeanna Carlson Urea nitrogen/Creatinine [Mass ratio] 14.4 mg/mg Normal [facility] Comment on above: Performed By: #### B MP ####[facility] [address] [address]Dr. Leeanna Carlson PROTIMEon 08-09-2022 INR Coag (PPP) [Relative time] 1.01 {INR} Normal [facility] Comment on above: Performed By: #### P T, PTT ####[facility] [address] [address]Dr. Leeanna Carlson INR GUIDELINES SEE BELOW Normal The [facility] Comment on above: Result Comment: AIRAM RED INR: 2.0 - 3.0 CONDITIONS NOT LISTED BELOW 2.5 - 3.5 FOR PROSTHETIC HEART VALVE REPLACEMENT 2.5 - 3.5 RECURRENT THROMBOSIS Performed By: #### P T, PTT ####[facility] [address] [place], [place] [address]Dr. Leeanna Carlson PT Coag (PPP) [Time] 10.7 s Normal 9.0-11.6 [facility] Comment on above: Performed By: #### P T, PTT ####[facility] [address] [place], [place] [address]DrCassidy Carlson PTTon 08-09-2022 aPTT Coag (Bld) [Time] 29.2 s Normal 22.3-36.2 [facility] Comment on above: Performed By: #### P T, PTT ####[facility] [address] [place], [place] [address]Dr. Leeanna Carlson CBC AUTO DIFFon 07-28-2022 BASO # 0.0 103/ul Normal 0.0-0.1 [facility] Comment on above: Performed By: #### C BC #### [facility] [address] [place] [address] Dr. Leeanna Carlson Basophils/100 WBC (Bld) 0.8 % Normal 0.2-2.0 [facility] Comment on above: Performed By: #### C BC #### [facility] Laboratory [address] [place] [address] Dr. Leeanna Carlson EO # 0.0 103/ul Normal 0.0-0.7 [facility] Comment on above: Performed By: #### C BC #### [facility] [address] [place] [address] Dr. Leeanna Carlson Eosinophils/100 WBC (Bld) 0.6 % Critically low 0.9-7.0 [facility] Comment on above: Performed By: #### C BC #### [facility] [address] [place] [address] Dr. Leeanna Carlson Erythrocyte distribution width (RBC) [Ratio] 13.3 % Normal 11.0-15.0 [facility] Comment on above: Performed By: #### C BC #### [facility] [address] [place] [address] Dr. Leeanna Carlson Hematocrit (Bld) [Volume fraction] 46.5 % Normal 42.0-54.0 [facility] Comment on above: Performed By: #### C BC #### [facility] [address] [place] [address] Dr. Leeanna Carlson Hemoglobin (Bld) [Mass/Vol] 15.4 g/dL Normal 14.0-18.0 [facility] Comment on above: Performed By: #### C BC #### [facility] [address] [place] [address] Dr. Leeanna Carlson IG # 0.01 10e3/ul Normal 0.00-0.03 [facility] Comment on above: Performed By: #### C BC #### [facility] [address] [place] [address] Dr. Leeanna Carlson IG % 0.2 % Normal 0.0-0.5 [facility] Comment on above: Performed By: #### C BC #### [facility] [address] [place] [address] Dr. Leeanna Carlson LYMPH # 1.8 103/ul Normal 1.2-3.8 [facility] Comment on above: Performed By: #### C BC #### [facility] [address] [place] [address] Dr. Leeanna Carlson Lymphocytes/100 WBC (Bld) 35.0 % Normal 20.5-60.0 [facility] Comment on above: Performed By: #### C BC #### [facility] [address] [place] [address] Dr. Leeanna Carlson MANUAL DIFF REQ NO Normal [facility] Comment on above: Performed By: #### C BC #### [facility] [address] [place] [address] Dr. Leeanna Carlson MCH (RBC) [Entitic mass] 28.4 pg Normal 25.9-34.0 [facility] Comment on above: Performed By: #### C BC #### [facility] [address] [place] [address] Dr. Leeanna Carlson MCHC (RBC) [Mass/Vol] 33.1 g/dL Normal 29.9-35.2 [facility] Comment on above: Performed By: #### C BC #### [facility] [address] [place] [address] Dr. Leeanna Carlson MCV (RBC) [Entitic vol] 85.6 fL Normal 80.0-94.0 [facility] Comment on above: Performed By: #### C BC #### [facility] [address] [place] [address] Dr. Leeanna Carlson MONO # 0.6 103/ul Normal 0.3-0.8 [facility] Comment on above: Performed By: #### C BC #### [facility] [address] [place] [address] Dr. Leeanna Carlson Monocytes/100 WBC (Bld) 11.5 % Normal 1.7-12.0 [facility] Comment on above: Performed By: #### C BC #### [facility] [address] [place] [address] Dr. Leeanna Carlson NEUT # 2.7 103/ul Normal 1.4-6.5 [facility] Comment on above: Performed By: #### C BC #### [facility] [address] [place] [address] Dr. Leeanna Carlson Neutrophils/100 WBC (Bld) 51.9 % Normal 43.0-75.0 [facility] Comment on above: Performed By: #### C BC #### [facility] [address] [place] [address] Dr. Leeanna Carlson Platelet mean volume (Bld) [Entitic vol] 9.9 fL Normal 9.5-13.5 [facility] Comment on above: Performed By: #### C BC #### [facility] [address] [place] [address] Dr. Leeanna Carlson PLT 191 103/ul Normal 150-450 [facility] Comment on above: Performed By: #### C BC #### [facility] [address] [place] [address] Dr. Leeanna Carlson RBC 5.43 106/ul Normal 4.70-6.10 [facility] Comment on above: Performed By: #### C BC #### [facility] [address] [place] [address] Dr. Leeanna Carlson WBC 5.1 103/ul Normal 4.0-11.0 [facility] Comment on above: Performed By: #### C BC #### [facility] [address] [place] [address] ABD/PELVIS WO CONon [...] Date: 2022-07-28 10:52 Normal [facility] ER URINE PROFILEon 3 Bilirubin Ql (U) Negative Normal NEGATIVE [facility] Comment on above: Performed By: #### U MICRO, ERUR #### [facility] [address] [address] [address] Leeanna Carlson Clarity (U) CLOUDY Abnormal CLEAR [facility] Comment on above: Performed By: #### U MICRO, ERUR #### [facility] [address] [address] [address] Leeanna Carlson Color (U) BROWN Abnormal YELLOW [facility] Comment on above: Performed By: #### U MICRO, ERUR #### [facility] [address] [address] [address] Leeanna KEENE A micrscopic examination will be performed if indicated. Normal [facility] Comment on above: Performed By: #### U MICRO, ERUR #### [facility] [address] [address] [address] Leeanna Carlson Glucose Ql (U) Negative Normal NEGATIVE [facility] Comment on above: Performed By: #### U MICRO, ERUR #### [facility] [address] [address] [address] Leeanna Carlson Hemoglobin Ql (U) LARGE Abnormal NEGATIVE The [place] Comment on above: Performed By: #### U MICRO, ERUR #### [facility] [address] [address] [address] Leeanna Carlson Ketones Ql (U) Negative Normal NEGATIVE [facility] Comment on above: Performed By: #### U MICRO, ERUR #### [facility] [address] [address] [address] Leeanna Carlson LEUKOCYTES TRACE Abnormal NEGATIVE [facility] Comment on above: Performed By: #### U MICRO, ERUR #### [facility] [address] [place] [address] Dr. Leeanna Carlson Nitrite Ql (U) Negative Normal NEGATIVE [facility] Comment on above: Performed By: #### U MICRO, ERUR #### [facility] [address] [place] [address] Dr. Leeanna Carlson pH (U) 5.0 [pH] Normal 5-9 [facility] Comment on above: Performed By: #### U MICRO, ERUR #### [facility] [address] [place] [address] Dr. Leeanna Carlson Protein (U) [Mass/Vol] 30 mg/dL Abnormal NEGAT KIERSTEN/ TRACE [facility] Comment on above: Performed By: #### U MICRO, ERUR #### [facility] [address] [place] [address] Dr. Leeanna Carlson SPEC GRAVITY 1.020 Normal 1.005-<=1.[address] [facility] Comment on above: Performed By: #### U MICRO, ERUR #### [facility] [address] [place] [address] Dr. Leeanna Carlson UR MICRO IND INDICATED Normal [facility] Comment on above: Performed By: #### U MICRO, ERUR #### [facility] [address] [place] [address] Dr. Leeanna Carlson Urobilinogen Qn (U) 1.0 {Marito'U}/dL Normal 0.2 - 1. 0 [facility] Comment on above: Performed By: #### U MICRO, ERUR #### [facility] [address] [place] [address] Dr. Leeanna Carlson URINE MICROSCOPIC ONLYon BACTERIA NONE SEEN Normal NONE SEEN [facility] Comment on above: Performed By: #### U MICRO, ERUR #### [facility] [address] [place] [address] Dr. Leeanna Carlson Bacteria identified Cx Nom (U) NOT INDICATED Normal [facility] Comment on above: Performed By: #### U MICRO, ERUR #### [facility] [address] [address] [address] Leeanna Carlson CAST NONE SEEN Normal NONE SEEN [facility] Comment on above: Performed By: #### U MICRO, ERUR #### [facility] [address] [address] [address] Leeanna Carlson Crystals LM Nom (Urine sed) NONE SEEN Normal NONE SEEN [facility] Comment on above: Performed By: #### U MICRO, ERUR #### [facility] [address] [address] [address] Leeanna Carlson Epithelial cells LM Ql (Urine sed) RARE Normal NONE SEEN /RARE [facility] Comment on above: Performed By: #### U MICRO, ERUR #### [facility] [address] [place] [address] Dr. Leeanna Carlson MUCOUS NONE SEEN Normal NONE SEEN [facility] Comment on above: Performed By: #### U MICRO, ERUR #### [facility] [address] [address] [address] Leeanna Carlson RBC (U) [#/Vol] /uL Abnormal 0-[address] [facility] Comment on above: Performed By: #### U MICRO, ERUR #### [facility] [address] [address] [address] Leeanna Carlson WBC 0-2 Abnormal NONE SEEN [facility] Comment on above: Performed By: #### U MICRO, ERUR #### [facility] [address] [address] [address] Leeanna Carlson CULTURE URINEon 06-14-2022 CULTURE URINE Culture Observations: NO GROWTH. Normal [facility] Comment on above: Performed By: #### U RCX ####[facility] [address] [address]Dr. Leeanna Carlson UA RANDOMon 06-14-2022 Bilirubin Ql (U) Negative Normal NEGATIVE [facility] Comment on above: Performed By: #### U A #### [facility] [address] [address] [address] Leeanna Carlson Clarity (U) CLEAR Normal CLEAR [facility] Comment on above: Performed By: #### U A #### [facility] [address] [place] [address] Dr. Leeanna Carlson Color (U) LT. YELLOW Normal YELLOW [facility] Comment on above: Performed By: #### U A #### [facility] [address] [place] [address] Dr. Leeanna Carlson Glucose Ql (U) Negative Normal NEGATIVE [facility] Comment on above: Performed By: #### U A #### [facility] [address] [place] [address] Dr. Leeanna Carlson Hemoglobin Ql (U) SMALL Abnormal NEGATIVE [facility] Comment on above: Performed By: #### U A #### [facility] [address] [place] [address] Dr. Leeanna Carlson Ketones Ql (U) Negative Normal NEGATIVE [facility] [facility] Comment on above: Performed By: #### U A #### [facility] [address] [place] [address] Dr. Leeanna Carlson LEUKOCYTES Negative Normal NEGATIVE [facility] Comment on above: Performed By: #### U A #### [facility] [address] [place] [address] Dr. Leeanna Carlson Nitrite Ql (U) Negative Normal NEGATIVE [facility] Comment on above: Performed By: #### U A #### [facility] [address] [place] [address] Dr. Leeanna Carlson pH (U) 6.0 [pH] Normal 5-9 [facility] Comment on above: Performed By: #### U A #### [facility] [address] [place] [address] Dr. Leeanna Carlson SPEC GRAVITY <=1.005 Abnormal 1.005-<=1.025 [facility] Comment on above: Performed By: #### U A #### [facility] [address] [place] [address] Dr. Leeanna Carlson UA PROTEIN Negative Normal NEGATIVE/ TRACE [facility] Comment on above: Performed By: #### U A #### [facility] [address] [place], [place] [address] Dr. Leeanna Carlson Urobilinogen Qn (U) 0.2 {Marito'U}/dL Normal 0.2 - 1. 0 [facility] Comment on above: Performed By: #### U A #### [facility] [address] [place], [place] [address] Dr. Leeanna Carlson US KIDNEYSon 06-14-2022 US [...] Date: 2022-06-14 14:27 Normal [facility] XR KUB 1 VIEWon 06-14-2022 XR KUB [...] GIOVANNY ZAYAS Date: 2022-06-14 13:33 Normal [facility] Creatinine (Bld) [Mass/Vol]O rdered By: Dave Solorio on 04-27-2022 Creatinine [Mass/Vol] 1.2 mg/dL 0.6-1.3 [facility] Comment on above: ER/ESD physician is notified/shown all ISTAT results.Critical values may be confirmed by laboratory testing ifdeemed necessary by ER attending doctor. No Panel InformationOrdered By: Dave Solroio on 04-27-2022 POC Estimated GFR > 60 [facility] Comment on above: GFR estimated refere nce range: According to KDOQI guidelines, <60 ml/min/1.73m2 is sufficient to diagnose a patient with chronic kidney disease. POC Estimated GFR Non- Amer > 60 [facility] XR KUB 1 VIEWon 04-19-2022 [...] GIOVANNY ZAYAS Date: 2022-04-19 16:59 Normal [facility] XR KUB 1 VIEWon 10-06-2021 XR KUB [...] JOHANNA MARIE Date: 2021-10-06 16:08 Normal [facility] CBC AUTO DIFFon 09-28-2021 BASO # 0.0 103/ul Normal 0.0-0.1 [facility] Comment on above: Performed By: #### C BC ####[facility] [address] [place] [id number]. Leeanna Carlson Basophils/100 WBC (Bld) 0.8 % Normal 0.2-2.0 [facility] Comment on above: Performed By: #### C BC ####[facility] [address] [place], [place] [address]Dr. Leeanna Carlson EO # 0.1 103/ul Normal 0.0-0.7 [facility] Comment on above: Performed By: #### C BC ####[facility] [address] [place], [place] [address]Dr. Leeanna Carlson Eosinophils/100 WBC (Bld) 2.0 % Normal 0.9-7.0 [facility] Comment on above: Performed By: #### C BC ####[facility] [address] [place], [place] [address]Dr. Leeanna Carlson Erythrocyte distribution width (RBC) [Ratio] 13.2 % Normal 11.0-15.0 [facility] Comment on above: Performed By: #### C BC ####[facility] [address] [place], [place] [address]Dr. Leeanna Carlson Hematocrit (Bld) [Volume fraction] 47.8 % Normal 42.0-54.0 [facility] Comment on above: Performed By: #### C BC ####[facility] [address] [place], [place] [address]Dr. Leeanna Carlson Hemoglobin (Bld) [Mass/Vol] 15.8 g/dL Normal 14.0-18.0 [facility] Comment on above: Performed By: #### C BC ####[facility] [address] [place], [place] [address]Dr. Leeanna Carlson IG # 0.01 10e3/ul Normal 0.00-0.03 [facility] Comment on above: Performed By: #### C BC ####[facility] [address] [place], [place] [address]Dr. Leeanna Carlson IG % 0.2 % Normal 0.0-0.5 [facility] Comment on above: Performed By: #### C BC ####[facility] [address] [place] [id number]. Leeanna Carlson LYMPH # 1.4 103/ul Normal 1.2-3.8 [facility] Comment on above: Performed By: #### C BC ####[facility] [address] [place] [address]Dr. Leeanna Carlson Lymphocytes/100 WBC (Bld) 29.1 % Normal 20.5-60.0 [facility] Comment on above: Performed By: #### C BC ####[facility] [address] [place] [address]Dr. Leeanna Carlson MANUAL DIFF REQ NO Normal [facility] Comment on above: Performed By: #### C BC ####[facility] [address] [place] [id number]. Leeanna Carlson MCH (RBC) [Entitic mass] 28.4 pg Normal 25.9-34.0 [facility] Comment on above: Performed By: #### C BC ####[facility] [address] [place] [address]Dr. Tammieami Carlson MCHC (RBC) [Mass/Vol] 33.1 g/dL Normal 29.9-35.2 [facility] Comment on above: Performed By: #### C BC ####[facility] [address] [place] [address]Dr. Leeanna Carlson MCV (RBC) [Entitic vol] 86.0 fL Normal 80.0-94.0 [facility] Comment on above: Performed By: #### C BC ####[facility] [address] [place] [address]Dr. Leeanna Carlson MONO # 0.5 103/ul Normal 0.3-0.8 [facility] Comment on above: Performed By: #### C BC ####[facility] [address] [place] [address]Dr. Leeanna Carlson Monocytes/100 WBC (Bld) 9.9 % Normal 1.7-12.0 [facility] Comment on above: Performed By: #### C BC ####[facility] [address] [place] [address]Dr. Leeanna Carlson NEUT # 2.9 103/ul Normal 1.4-6.5 [facility] Comment on above: Performed By: #### C BC ####[facility] [address] [place] [address]Dr. Leeanna Carlson Neutrophils/100 WBC (Bld) 58.0 % Normal 43.0-75.0 [facility] Comment on above: Performed By: #### C BC ####[facility] [address] [place] [address]Dr. Leeanna Carlson Platelet mean volume (Bld) [Entitic vol] 10.3 fL Normal 9.5-13.5 [facility] Comment on above: Performed By: #### C BC ####[facility] [address] [place] [address]Dr. Leeanna Carlson PLT 187 103/ul Normal 150-450 [facility] Comment on above: Performed By: #### C BC ####[facility] [address] [place], [place] [address]Dr. Leeanna Carlson RBC 5.56 106/ul Normal 4.70-6.10 [facility] Comment on above: Performed By: #### C BC ####[facility] [address] [place] [address]Dr. Leeanna Carlson WBC 4.9 103/ul Normal 4.0-11.0 [facility] Comment on above: Performed By: #### C BC ####[facility] [address] [place] [address]DrCassidy Carlson PROF CHEM 8 (BAS METB)on Anion gap [Moles/Vol] 8.9 mmol/L Normal [facility] Comment on above: Performed By: #### B MP ####[facility] [address] [place] [address]DrCassidy Carlson Calcium [Mass/Vol] 9.1 mg/dL Normal 8.5-10.1 [facility] Comment on above: Performed By: #### B MP ####[facility] [address] [place] [address]Dr. Leeanna Carlson Chloride [Moles/Vol] 105 mmol/L Normal 98-107 [facility] Comment on above: Performed By: #### B MP ####[facility] [address] [place] [address]Dr. Leeanna Carlson CO2 [Moles/Vol] 27.8 mmol/L Normal 21.0-32.0 [facility] Comment on above: Performed By: #### B MP ####[facility] [address] [place] [address]Dr. Leeanna Carlson Creatinine [Mass/Vol] 1.18 mg/dL Normal 0.70-1.30 [facility] Comment on above: Performed By: #### B MP ####[facility] [address] [place] [address]Dr. Leeanna Aldo EGFR-AF MOZAMBICAN >60 Normal >=60 [facility] Comment on above: Performed By: #### B MP ####[facility] [address] [place], [place] [address]Dr. Leeanna Carlson EGFR-NON AF MOZAMBICAN >60 Normal >=60 [facility] Comment on above: Performed By: #### B MP ####[facility] [address] [place] [address]Dr. Tammieami Carlson Glucose [Mass/Vol] 110 mg/dL Critically high 74-106 [facility] Comment on above: Performed By: #### B MP ####[facility] [address] [place] [address]Dr. Tammieami Carlson Potassium [Moles/Vol] 4.7 mmol/L Normal 3.5-5.1 [facility] Comment on above: Performed By: #### B MP ####[facility] [address] [place] [address]Dr. Tammieami Aldo Sodium [Moles/Vol] 137 mmol/L Normal 136-145 [facility] Comment on above: Performed By: #### B MP ####[facility] [address] [place], [place] [address]JrDr. Leeanna Carlson Urea nitrogen [Mass/Vol] 22.0 mg/dL Critically high 7.0-18.0 [facility] Comment on above: Performed By: #### B MP ####[facility] [address] [place], [place] [address]YwDr. Leeanna Carlson Urea nitrogen/Creatinine [Mass ratio] 18.6 mg/mg Normal [facility] Comment on above: Performed By: #### B MP ####[facility] [address] [place], [place] [address]PyDr. Leeanna Carlson PROTIMEon 09-28-2021 INR Coag (PPP) [Relative time] 0.98 {INR} Normal [facility] Comment on above: Performed By: #### P TT, PT #### [facility] [address] [place] [address] [address] Leeanna Carlson INR GUIDELINES SEE BELOW Normal [facility] Comment on above: Result Comment: AIRAM RED INR: 2.0 - 3.0 CONDITIONS NOT LISTED BELOW 2.5 - 3.5 FOR PROSTHETIC HEART VALVE REPLACEMENT 2.5 - 3.5 RECURRENT THROMBOSIS Performed By: #### P TT, PT #### [facility] [address] [place] [address] [address] Leeanna Carlson PT Coag (PPP) [Time] 10.6 s Normal 9.0-11.6 [facility] Comment on above: Performed By: #### P TT, PT #### [facility] [address] [place] [address] [address] Leeanna Carlson PTTon 09-28-2021 aPTT Coag (Bld) [Time] 29.3 s Normal 22.3-36.2 [facility] Comment on above: Performed By: #### P TT, PT #### [facility] [address] [place] [address] [address] Leeanna Carlson Comprehensive Metabolic Pane puneet 06-03-2021 Albumin [Mass/Vol] 4.6 g/dL Normal 3.6-5.1 [facility] [place] [employer] Comment on above: Performed By: #### V ITD, LIPD, CMP #### [facility] [address] [place], [place] [id number] Albumin/Globulin [Mass ratio] 1.9 {ratio} Normal 1.0-2.5 [facility] Comment on above: Performed By: #### V ITD, LIPD, CMP #### [facility] [address] [place], [place] [id number] ALP [Catalytic activity/Vol] 85 U/L Normal 40-129 [facility] Comment on above: Performed By: #### V ITD, LIPD, CMP #### [facility] [address] [place], [place] [id number] ALT [Catalytic activity/Vol] 28 U/L Normal 9-46 [facility] Comment on above: Result Comment: 03/02 Female reference range changed. Performed By: #### V ITD, LIPD, CMP #### [facility] [address] [place], [place] [id number] Anion gap [Moles/Vol] 18 mmol/L Normal 12-20 [facility] Comment on above: Result Comment: Effe ctive 04/07/2019 reference range changed. Performed By: #### V ITD, LIPD, CMP #### [facility] [address] [place], [place] [id number] AST [Catalytic activity/Vol] 25 U/L Normal 10-40 [facility] Comment on above: Performed By: #### V ITD, LIPD, CMP #### [facility] [address] [place], [place] [id number] Bilirubin [Mass/Vol] 0.65 mg/dL Normal 0.30-1.20 [facility] Comment on above: Performed By: #### V ITD, LIPD, CMP #### [facility] [address] [place], [place] [id number] BUN/CREA 24 Ratio High 6-22 [facility] Comment on above: Performed By: #### V ITD, LIPD, CMP #### [facility] [address] [place], [place] [id number] Calcium [Mass/Vol] 9.4 mg/dL Normal 8.6-10.2 [facility] [employer] Comment on above: Performed By: #### V ITD, LIPD, CMP #### [facility] [address] [place], [place] [id number] Chloride [Moles/Vol] 105 mmol/L Normal 98-107 [facility] Comment on above: Performed By: #### V ITD, LIPD, CMP #### [facility] [address] [place], [place] [id number] CO2 [Moles/Vol] 23 mmol/L Normal 20-31 [facility] Comment on above: Performed By: #### V ITD, LIPD, CMP #### [facility] [address] [facility] [place] [id number] Creatinine [Mass/Vol] 1.1 mg/dL Normal 0.7-1.4 [facility] Comment on above: Performed By: #### V ITD, LIPD, CMP #### [facility] [address] [place], [place] [id number] eGFRAA 86 mL/min/1.73m2 Normal >60 [facility] Comment on above: Performed By: #### V ITD, LIPD, CMP #### [facility] [address] [place], [place] [id number] eGFRNAA 71 mL/min/1.73m2 Normal >60 [facility] Comment on above: Performed By: #### V ITD, LIPD, CMP #### [facility] [address] [place], [place] [id number] Globulin (S) [Mass/Vol] 2.4 g/dL Normal 1.9-3.7 [facility] Comment on above: Performed By: #### V ITD, LIPD, CMP #### [facility] [address] [place], [place] [id number] Glucose [Mass/Vol] 97 mg/dL Normal 65-99 [facility] [employer] Comment on above: Result Comment: For FASTING Glucose --- ADA reference ranges: Normal 65-99 mg/dl Prediabetes 100-125 Diabetes >/= 126 Performed By: #### V ITD, LIPD, CMP #### [facility] [address] [place], [place] [id number] Potassium [Moles/Vol] 4.5 mmol/L Normal 3.5-5.5 [facility] Specialist Comment on above: Performed By: #### V ITD LIPD, CMP #### [facility] [address] [place], [place] [id number] Protein [Mass/Vol] 7.0 g/dL Normal 6.1-8.1 [facility] [employer] Comment on above: Performed By: #### V ITD LIPD, CMP #### [facility] [address] [place], [place] [id number] Sodium [Moles/Vol] 141 mmol/L Normal 135-146 Jp rn [place] [employer] Comment on above: Performed By: #### V CORINE LIPD, CMP #### [facility] [address] [place], [place] [id number] Urea nitrogen [Mass/Vol] 26 mg/dL High 7-25 [facility] [employer] Comment on above: Performed By: #### V ITD LIPD, CMP #### [facility] [address] [place], [place] [id number] Hemoglobin A1Con 06-03-2021 EAG 125.50 Normal [facility] [employer] Comment on above: Performed By: #### A 1C #### [facility] [address] [place], [place] [id number] HbA1c (Bld) [Mass fraction] 6.0 % Normal 4.0-6.0 [facility] [employer] Comment on above: Performed By: #### A 1C #### [facility] [address] [place], [place] [id number] Lipid Panelon 06-03-2021 Cholesterol [Mass/Vol] 232 mg/dL High 125-200 [facility] Comment on above: Result Comment: Low risk < 200mg/dL Borderline risk 201-239 mg/dl High risk > or equal to 240 Performed By: #### V ITD, LIPD, CMP #### [facility] [address] [place], [place] [id number] Cholesterol in HDL [Mass/Vol] 68 mg/dL Normal >40 [facility] [employer] Comment on above: Result Comment: High Cardiovascular Risk HDL <40 mg/dL Low Cardiovascular Risk HDL > or equal to 60 mg/dl Performed By: #### V ITD, LIPD, CMP #### [facility] [address] [place], [place] [id number] Cholesterol in LDL [Mass/Vol] 153 mg/dL Normal [facility] Specialist Comment on above: Result Comment: LDL ATP III CLASSIFICATION LDL less than 100 mg/dl Optimal LDL 100-129 mg/dl Near or above optimal LDL 130-159 Borderline high LDL 160-189 High LDL greater than 189 mg/dl Very High Performed By: #### V ITD, LIPD, CMP #### [facility] [address] [place], [place] [id number] Cholesterol in VLDL [Mass/Vol] 11 mg/dL Normal [facility] Special[facility] Comment on above: Performed By: #### V ITD, LIPD, CMP #### [facility] [address] [place], [place] [id number] Cholesterol.total/Chol esterol in HDL [Mass ratio] 3 {ratio} Normal [facility] Specialist Comment on above: Performed By: #### V ITD, LIPD, CMP #### [facility] [address] [place], [place] [id number] Triglyceride [Mass/Vol] 55 mg/dL Normal 30-150 [facility] Specialist Comment on above: Result Comment: TRIG ATPIII CLASSIFICATIONS TRIG less than 150 mg/dl Normal TRIG 150-199 mg/dl Borderline High TRIG 200-500 mg/dl High TRIG greather than 500 mg/dl Very High Performed By: #### V ITD, LIPD, CMP #### [facility] [address] [place], [place] [id number] Prostatic Specific Antigen, Totalon 06-03-2021 TPSA 5.030 ng/mL High <4.000 [facility] Specialist Comment on above: Result Comment: PSA Test Method: ECLIA/Maira e 601 Performed By: #### P SA #### [facility] [address] [place], [place] [id number] Vitamin D 25-OHon 06-03-2021 VIT D 25 [place] 57 ng/ml Normal >29 [facility] [employer] Comment on above: Result Comment: Amanda min D Status Deficiency <20 ng/mL Insufficiency 20-29 ng/mL Optimal 30-100 ng/mL Possible Toxicity >=150 ng/mL Performed By: #### V ITD, LIPD, CMP #### [facility] [address] [facility] [place] [place] [id number] MRI PROSTATE WO/W IVCONon MRI PROSTATE WO/W [...] prostate and pelvis performed on a 3T (theAudience) scanner utilizing phase pelvic coil. Sequences obtained: Multiplanar T2-WI with small [id number]-[id number]; Axial diffusion weighted images with multiple B-values and creation of ADC-maps; Dynamic contrast enhanced T1-weighted images through the prostate were also obtained before, during and after the administration of intravenous gadolinium. Prostate dimensions and volume were obtained using a semi-automated software (Cuff-Protect). CONTRAST: IV: 17 cc of (Dotarem). RESULT: [...] Clinically significant cancer is highly likely (V.05) Plating Stripper: GEOFF Transcribe Date/Time: Mar 10 2019 1:33P Dictated by : DAVE JONES MD This examination was interpreted and the report reviewed and electronically signed by: DAVE JONES MD on Mar 10 2019 2:15PM EST [id number] Normal [facility] PROGRESSon 03-10-2019 PROGRESS HNO ID: [id number] Author: Hallie Manning) QUIN Saavedra Service: Radiology [...] March 10, 2019 TIME: 12:15 PM Normal [facility] PROGRESS HNO ID: [id number] Author: Rosina Ferrari (Tech) Service: Radiology Author Type: Cafeteria Counter Attendant Type: Progress Notes Filed: 03/10/2019 12:54 PM [...] Ferrari March 10, 2019 12:54 PM Normal [facility] Vital Signs Date Time Vital Sign Value Performing Clinician Jesse cooper 01-07-2024 11:24-0400 Blood Pressure Location Sharla MONTIEL [facility] 01-07-2024 11:24-0400 Diastolic blood pressure 78 mm[Hg] Sharla MONTIEL [facility] 01-07-2024 11:24-0400 Heart rate 62 /min Sharla MONTIEL [facility] 01-07-2024 11:24-0400 Systolic blood pressure 136 mm[Hg] Sharla MONTIEL [facility] 07-02-2023 09:42-0400 Blood Pressure Location Sharla MONTIEL [facility] 07-02-2023 09:42-0400 Body temperature 98.6 [degF] Sharla MONTIEL [facility] 07-02-2023 09:42-0400 Diastolic blood pressure 84 mm[Hg] Sharla MONTIEL [facility] 07-02-2023 09:42-0400 Heart rate 75 /min Sharla MONTIEL [facility] 07-02-2023 09:42-0400 Respiratory rate 17 /min Sharla MONTIEL [facility] 07-02-2023 09:42-0400 Systolic blood pressure 137 mm[Hg] Sharla MONTIEL [facility] 05-23-2023 13:45-0500 Body height 177.8 cm Jeana Parra DO [email or web address] 05-23-2023 13:45-0500 Body mass index (BMI) [Ratio] 28.5 kg/m2 Jenaa Parra DO Work Phone[email or web address] 05-23-2023 13:45-0500 Body weight 90.08 kg Jeana Parra DO Work Phone[email or web address] 05-23-2023 13:45-0500 Diastolic blood pressure 85 mm[Hg] Jeana Parra DO Work Phone[email or web address] 05-23-2023 13:45-0500 Heart rate 63 /min Jeana Parra DO Work Phone[email or web address] 05-23-2023 13:45-0500 Systolic blood pressure 134 mm[Hg] Jeana Parra DO Work Phone: [email or web address] 04-24-2023 13:03-0500 Body mass index (BMI) [Ratio] 29.1 kg/m2 Keerthi Gill MD Work Phone: [email or web address] 04-24-2023 13:03-0500 Body temperature 97.7 [degF] Keerthi Gill MD [facility] 04-24-2023 13:03-0500 Body weight 91.99 kg Keerthi Gill MD [facility] 04-24-2023 13:03-0500 Diastolic blood pressure 78 mm[Hg] Keerthi Gill MD Work Phone: [facility] 04-24-2023 13:03-0500 Heart rate 71 /min Keerthi Gill MD Work Phone: [facility] 04-24-2023 13:03-0500 SaO2% (BldA) [Mass fraction] 97 % Keerthi Gill MD Work Phone: [facility] 04-24-2023 13:03-0500 Systolic blood pressure 134 mm[Hg] Keerthi Gill MD Work Phone: [facility] 10-09-2022 08:31-0400 Blood Pressure Location Sharla MONTIEL [facility] 10-09-2022 08:31-0400 Diastolic blood pressure 74 mm[Hg] Sharla MONTIEL [facility] 10-09-2022 08:31-0400 Heart rate 80 /min Sharla MONTIEL [facility] 10-09-2022 08:31-0400 Respiratory rate 16 /min Sharla MONTIEL [facility] 10-09-2022 08:31-0400 Systolic blood pressure 130 mm[Hg] Sharla MONTIEL [facility] 05-01-2022 09:15-0500 Blood Pressure Location Sharla MONTIEL [facility] [facility] 05-01-2022 09:15-0500 Diastolic blood pressure 84 mm[Hg] Sharla MONTIEL [facility] 05-01-2022 09:15-0500 Heart rate 75 /min Sharla MONTIEL [facility] 05-01-2022 09:15-0500 Respiratory rate 16 /min Sharla MONTIEL [facility] 05-01-2022 09:15-0500 Systolic blood pressure 129 mm[Hg] Sharla MONTIEL [facility] 04-27-2022 07:35-0500 Body height 177.8 cm DO Monica Cori Work Phone: [facility] 04-27-2022 07:35-0500 Body weight 88.45 kg DO Monica Cori Work Phone: [facility] 04-19-2022 13:20-0500 Blood Pressure Location DONALD LEOLA [facility] 04-19-2022 13:20-0500 Diastolic blood pressure 74 mm[Hg] DONALD LEOLA [facility] 04-19-2022 13:20-0500 Heart rate 72 /min DONALD LEOLA [facility] 04-19-2022 13:20-0500 Respiratory rate 16 /min DONALD LEOLA [facility] 04-19-2022 13:20-0500 Systolic blood pressure 126 mm[Hg] DONALD LEOLA [facility] 10-28-2021 10:27-0400 Blood Pressure Location Sharla MONTIEL [facility] 10-28-2021 10:27-0400 Diastolic blood pressure 81 mm[Hg] Sharla MONTIEL [facility] 10-28-2021 10:27-0400 Heart rate 54 /min Sharla MONTIEL [facility] 10-28-2021 10:27-0400 Respiratory rate 16 /min Sharla MONTIEL [facility] [place] 10-28-2021 10:27-0400 Systolic blood pressure 134 mm[Hg] Sharla MONTIEL [facility] [place] 08-17-2021 10:03-0400 Blood Pressure Location Sharla MONTIEL [facility] [place] 08-17-2021 10:03-0400 Diastolic blood pressure 87 mm[Hg] Sharla MONTIEL [facility] 08-17-2021 10:03-0400 Heart rate 58 /min Sharla MONTIEL [facility] 08-17-2021 10:03-0400 Systolic blood pressure 134 mm[Hg] Sharla MOTNIEL [facility] M360LOHAS outdoors Encounters Encounter Date Encounter Type Care Provider Facility Start: 01-09-2025 ambulatory Sharla MONTIEL Facili ty:[facility] Start: 03-06-2024 ambulatory Sharla MONTIEL Facili ty:[id number] Start: 01-07-2024 End: 01-07-2024 ambulatory Sharla MONTIEL Facility:[facility] Start: 01-07-2024 End: 01-07-2024 Patient encounter procedure Sharla MONTIEL [facility] [place] Start: 07-31-2023 End: 07-31-2023 ambulatory [facility] Start: 07-30-2023 End: 07-30-2023 Patient encounter procedure MD Sharla Montiel Work Phone: [facility] [place] Work Phone: Start: 07-30-2023 End: 07-30-2023 ambulatory NON STAFF [facility] Work Phone: Start: 07-02-2023 End: 07-02-2023 ambulatory Sharla MONTIEL Facility:[facility] Start: 07-02-2023 End: 07-02-2023 Patient encounter procedure Sharla MONTIEL [facility] Start: 05-23-2023 End: 05-23-2023 ambulatory [facility] Start: 05-23-2023 End: 05-23-2023 Office outpatient visit 15 minutes [facility] DO Work Phone: [facility] Comment on above: Acute epididymitis ( Primary Dx); Non-recurrent unilateral inguinal hernia without obstruction or gangrene; Epididymitis Start: 04-26-2023 End: 04-27-2023 ambulatory [facility] Start: 04-24-2023 End: 04-24-2023 [facility] Start: 04-24-2023 End: 04-24-2023 Office outpatient visit 25 minutes Keerthi Gill MD Work Phone: [facility] Comment on above: Non-recurrent unilat eral inguinal hernia without obstruction or gangrene (Primary Dx); Flank pain Start: 04-06-2023 End: 04-06-2023 ambulatory BRITT REYES Not Available Start: 04-04-2023 ambulatory Sarah Stone CMA [facility] Quality - Care Coordination Team Start: 04-04-2023 Coordination of care plan Sarah ventura CMA [facility] Quality - Care Coordination Team Start: 03-22-2023 End: 03-22-[address] [facility] Start: 10-09-2022 End: 10-09-2022 Patient encounter procedure Sharla MONTIEL [facility] Start: 09-18-2022 End: 09-18-2022 Patient encounter procedure Sharla MONTIEL [facility] Start: 08-29-2022 End: 08-29-2022 Patient encounter procedure Sharla MONTIEL [facility] [place] Start: 08-25-2022 End: 08-25-[address] DOCTOR HALEY Facility:[facility] Start: 08-17-2022 End: 08-18-[address] DOCTOR HALEY Facility:[facility] Start: 08-12-2022 Encounter for preprocedural cardiovascular examination DR SHARLA MONTIEL . [facility] Start: 08-12-2022 Encounter for preprocedural laboratory examination DR SHARLA MONTIEL . [facility] Start: 08-09-2022 End: 08-10-[address] SHARLA MONTIEL . Facility:[facility] Start: 08-09-2022 End: 08-10-2022 Encounter for preprocedural cardiovascular examination DR SHARLA MONTIEL . Facility:[facility] Start: 07-28-2022 End: 07-28-[address] DOCTOR HALEY Facility:[facility] Start: 06-14-2022 End: 06-15-[address] GIOVANNY ZAYAS Facility:[facility] Start: 06-14-2022 End: 06-14-2022 Patient encounter procedure DONALD BHAGAT [facility] Start: 05-01-2022 End: 05-01-2022 Patient encounter procedure Sharla MONTIEL [facility] Start: 04-27-2022 End: 04-27-2022 ambulatory DO Monica G Cori Work Phone: [facility] Work Phone: Start: 04-27-2022 End: 04-27-2022 Patient encounter procedure DO Monicaheather Parham Work Phone: [facility] [place] Work Phone: Start: 04-19-2022 End: 04-20-[address] GIOVANNY ZAYAS Facility:[facility] Start: 04-19-2022 End: 04-19-2022 Patient encounter procedure DONALD BHAGAT [facility] Start: 10-28-2021 End: 10-28-2021 Lab Drop off Sharla MONTIEL [facility] Start: 10-28-2021 End: 10-28-2021 Patient encounter procedure Sharla MONTIEL [facility] Start: 10-06-2021 End: 10-06-[address] SHARLA MONTIEL . Facility:[facility] Start: 09-28-2021 End: 09-29-[address] SHARLA MONTIEL . Facility:[facility] Start: 08-17-2021 End: 08-17-2021 Patient encounter procedure Sharla MONTIEL [facility] Procedures Date Procedure Procedure Detail Performing Clinician Start: 07-30-2023 MR prostate wo/w con MD Sharla Montiel Work Phone: Start: 03-22-2023 Adult depression scr eening assessment Sarah Stone TOE STRIPPER Start: 11-27-2022 Colonoscopy Sarah ventura TOE STRIPPER Start: 08-29-2022 Cystoscopic removal of ureteric stent Sharla MONTIEL Start: 08-17-2022 Transurethral prostatectomy Sharla MONTIEL Start: 04-27-2022 MRI of head DO Monica gonzalez Work Phone: Start: 03-12-2020 Cystoscopy Sharla FERRELL Start: 08-31-2016 Transurethral prostatectomy Sharla MONTIEL Start: 07-04-2016 Cystoscopy Shalra FERRELL Start: 09-30-2014 Cystoscopy Sharla FERRELL Start: 04-21-2010 Transurethral prostatectomy Sharla MONTIEL Start: 02-04-2010 Urodynamic studies Jesusitar kelli MONTIEL Start: 07-31-2008 Transrectal biopsy o f prostate using ultrasound guidance Sharla MONTIEL Start: 07-31-2005 Cystoscopy Sharla FERRELL Appendectomy Sharla MONTIEL Tonsillectomy Sharla MONTIEL Plan of Treatment Date Care Activity Detail Author Start: 11-27-2032 Screening for malign ant neoplasm of colon Colonoscopy [facility] Start: 06-27-2024 DTaP,Tdap and Td Vac cines (2 - Td or Tdap) DTaP,Tdap and Td Vaccines (2 - Td or Tdap) [facility] Start: 05-23-2024 Adult BMI Screening Adult BMI Screen ing [facility] Start: 05-23-2024 Tobacco Screening Tobacco Screening [facility] Start: 04-24-2024 Adult BMI Screening Adult BMI Screen ing [facility] Start: 04-24-2024 Tobacco Screening Tobacco Screening [facility] Start: 04-04-2024 Fall Risk Screening Fall Risk Screen ing [facility] Start: 03-22-2024 Adult BMI Screening Adult BMI Screen ing [facility] Start: 03-22-2024 Depression Screening Depression Scre ening [facility] Start: 03-22-2024 Fall Risk Screening Fall Risk Screen ing [facility] Start: 03-22-2024 Tobacco Screening Tobacco Screening [facility] Start: 09-25-2023 End: 09-25-2023 Patient encounter procedure 09/25/2023 10:15 AM EDT Office Visit [facility] [address] [place] [address] [phone] Keerthi Gill MD [address] [place], [place] [id number] [facility] Start: 05-02-2023 End: 05-02-2023 Patient encounter procedure 05/02/2023 9:15 AM EST Office Visit [facility] Surgery [address] [place] [address] [phone] Jeana Parra DO [address] [place], [place] [id number] [facility] Start: 04-26-2023 End: 04-26-2023 Patient encounter procedure [facility] Start: 04-24-2023 End: 04-24-2024 US Retroperitoneum Ultrasound retroperitoneal complete Imaging Routine Flank pain Expected: 04/24/2023, Expires: 04/24/2024 [facility] Comment on above: Expected: 04/24/2023 , Expires: 04/24/2024 Start: 04-24-2023 End: 04-24-2024 US Scrotum and testicle Ultrasound scrotum Imaging Routine Non-recurrent unilateral inguinal hernia without obstruction or gangrene Expected: 04/24/2023, Expires: 04/24/2024 [facility] Work Phone: Comment on above: Expected: 04/24/2023 , Expires: 04/24/2024 Start: 12-01-2022 COVID-19 Vaccine (5 - 2023-24 season) COVID-19 Vaccine (2022- season) [employer] Start: 12-01-2022 Influenza vaccination Influenza Vacc ine [employer] Start: 09-23-2007 Administration of varicella zoster vaccine Zoster (Shingles) Vaccine (1 of 2) [employer] Start: 09-23-1975 Adult BMI Follow Up Plan Adult BMI F ollow Up Plan [employer] Start: 1955 Medicare Annual Well ness Visit [facility] Immun[facility] Immunization Date Immunization Notes Care Provider Brittnee agustin 03-03-2022 SARS-CoV-2 (COVID-19 ) [id number] Sharla MONTIEL [facility] 08-20-2021 SARS-CoV-2 (COVID-19 ) mRNA-1273 vaccine Sharla MONTIEL [facility] 03-02-2021 SARS-CoV-2 (COVID-19 ) mRNA-1273 vaccine Sharlaastrid MONTIEL [facility] 02-20-2021 SARS-CoV-2 (COVID-19 ) mRNA-1273 vaccine Sharlaastrid MONTIEL [facility] 01-23-2021 SARS-CoV-2 (COVID-19 ) mRNA-1273 vaccine Sharla MONTIEL [facility] 06-27-2014 tetanus toxoid, redu juventino diphtheria toxoid, and acellular pertussis vaccine, adsorbed Sharla MONTIEL [facility] Payers Date Payer Category Payer Self-pay [id number] 2023 Medicare [id number] 2014 Unknown BCBS [facility] HMO/PPO/TRUST [id number] 2014-Present [phone] [place] [address] [id number] 1959 Unknown [id number] 1957 Unknown [id number] 2.16.840.1.460358.3.579.2.593 1957 Unknown [id number] 2.16.840.1.105522.3.579.2.593 1957 Unknown [id number] 2.16.840.1.505950.3.579.2.593 1957 Unknown [id number] 2.16.840.1.264564.3.579.2.593 1957 Unknown [id number] 2.16.840.1.512420.3.579.2.593 1957 Unknown [id number] 2.16.840.1.981895.3.579.2.593 1957 Unknown [id number] 2.16.840.1.441122.3.579.2.593 1957 Unknown [id number] 2.16.840.1.906317.3.579.2.593 1957 Unknown [id number] 2.16.840.1.453823.3.579.2.125 9 1957 Unknown [id number] 2.16.840.1.116741.3.579.2.128 6 1957 Unknown [id number] 2.16.840.1.483678.3.579.2.128 6 1957 Unknown [id number] 2.16.840.1.194528.3.579.2.128 6 1957 Unknown [id number] 2.16.840.1.044811.3.579.2.128 6 1957 Unknown [id number] 2.16.840.1.608907.3.579.2.128 6 1957 Unknown [id number] 2.16.840.1.369558.3.579.2.128 6 1957 Unknown [id number] 2.16.840.1.294928.3.579.2.727 1957 Unknown [id number] 2.16.840.1.181890.3.579.2.727 1957 Unknown [id number] 2.16.840.1.526136.3.579.2.727 Medicare Medicare-OP No Part B [id number] Unknown [id number] 2.16.840.1.060330.3.579.2.531 Social History Date Type Detail Facility Start: 08-17-2021 End: 01-07-2024 Tobacco smoking status Never smoked tobacco (finding) [facility] Start: 04-19-2022 Tobacco smoking status Never [facility] [place] M360LOHAS outdoors Start: 04-23-2020 End: 03-22-2023 Sex Assigned At Male [facility] Start: 1955 Sex Assigned At Male [facility] Start: 07-17-2022 Tobacco use and exposure Smokeless tobacco non-user [facility] Start: 03-22-2023 End: 05-23-2023 Alcohol intake Lifetime [facility]dr[facility] (finding[facility] Start: 04-23-2020 End: 03-22-2023 History of Social function [facility] Start: 1955 Sex Assigned At Not on file P [facility] Functional Status Date Assessment Result Facility 01-07-2024 Functional Status N/A [facility] 07-02-2023 Functional Status N/A [facility] 10-09-2022 Functional Status N/A [facility] 05-01-2022 Functional Status N/A [facility] 04-19-2022 Functional Status N/A [facility] 10-28-2021 Functional Status N/A [facility] Clinical Notes 08-16-2021 to 01-07-2024 Jeana Parra, [...] treatment? Where to find more information The [place] [employer]: www.cancer.org [employer] [employer]: www.auanet.org Contact a health care [...] provider. Document Revised: 09/12/2021 Document Reviewed: 09/12/2021 [employer] Patient Education 2023 [employer]. Follow Up Care 07/02/2023 10:58:48 With:SOFIYA MAGANA, Sharla Layton, URL Address: [facility] [address] , [place] [address]- [phone] When: Unknown Comments:3 yr w/ PSA [facility] 01-07-2024 Note Patient Education Oncology Prostate Cancer [...] Where to find more information ? The [place] [employer]: www.cancer.org ? [employer] [employer]: www.auanet.org Contact a health care [...] of the rectum. (more content not included)... [facility] 07-02-2023 Hospital Discharge instructions Patient Education 07/02/2023 [...] treatment? Where to find more information The [place] [employer]: www.cancer.org [employer] [employer] Association: www.auanet.org Contact a health care [...] provider. Document Revised: 09/12/2021 Document Reviewed: 09/12/2021 [employer] Patient Education 2022 [employer]. Follow Up Care 01/08/2023 10:36:36 With:SOFIYA MAGANA, Sharla Layton, URL Address: [facility] [address] [place] [address] [phone] When: Unknown Comments:6 mos w/ PSA [facility] 05[facility]2023 History of Present illness Narrative Images from the original note were not included. [facility] [address] [facility] [phone] CONSULT NOTE Zander Ponce 67 y.o. CHIEF [...] and does not rest. 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 He is very [...] 11/27/2022 Performed by Jeana Parra DO at [facility] COLONOSCOPY N/A 01/07/2018 Performed by Jeana Parra DO at [facility] FINGER SURGERY Left LEFT THUMB TONSILLECTOMY TRANSURETHRAL [...] patient/family/caregiver Referring and communicating with other health hearing care professional No primary diagnosis found. Jeana Parra, This note was created with the assistance of a speech recognition program. While intending to generate a timely document that accurately reflects the content of the visit, no guarantee can be provided that every grammatical or spelling mistake has been or will be identified or corrected. Thank you for your understanding. documented in this encounter [facility] 04-24-2023 History of Present illness Narrative Images from the original note were not included. [address] [place] [phone] Patient: Zander Ponce Date of : 1955 [...] or gangrene - Ultrasound scrotum; Future - [facility] - [place], [place]; Future 67-year-old gentleman who has recently had a colonoscopy completed by Dr. Potts. Will refer to Dr. Parra consideration for surgical intervention. KEERTHI GILL MD Family Medicine Physician [facility] / [facility] 04/24/23 This note was completed with voice recognition software. The document was reviewed for errors however some may still be present. Please do not hesitate to contact/Epic msg the author to verify any questions/concerns. documented in this encounter [facility] 04-04-2023 History of Present illness Narrative Date of Call: April 04, 2023 Date of Positive Fall Risk Screenin03/22/2023 PT Referral Placed by PCP: No Result of Call: Answered Patient consent to enroll in Program: No Status of PT Referral: Patient declined Goals: Resources Provided: Additional Comments: Patient completed fall risk screening but declines program participation. documented in this encounter [facility] 10-09-2022 Hospital Discharge instructions Patient Education 10/09/2022 [...] Follow these instructions at home: Medicines Take bbnk-kcu-pzqegqb and prescription medicines only as told by [...] or the blood stops without treatment. Take kcgf-tti-spwkhhu and prescription medicines only as told by your health care provider. Drink enough fluid to keep your urine pale yellow. This information is not intended to replace advice given to you by your health care provider. Make sure you discuss any questions you have with your health care provider. Document Revised: 11/17/2020 Document Reviewed: 11/17/2020 [employer] Patient Education 2022 [employer]. Follow Up Care 10/02/2022 10:55:28 With:SOFIYA MAGANA, Sharla Layton, URL Address: [facility] [address] , [place] [address] [phone] When:Within 3 Month(s) [facility] 08-29-2022 Hospital Discharge instructions Patient Education 08/29/2022 [...] including vitamins, herbs, eye drops, creams, and zrrf-hhf-bhylnvi medicines. Any problems you or family members [...] provider tells you to take them. Taking kzmx-myu-ljppohn medicines, vitamins, herbs, and supplements. Surgery safety [...] provider. Document Revised: 12/13/2021 Document Reviewed: 12/13/2021 [employer] Patient Education 2022 [employer]. Follow Up Care 08/24/2022 09:38:00 With:SOFIYA MAGANA, Sharla Layton, URL Address: [facility] [address] , [place] [address]- Business (1) When: Unknown [facility] 05-01-2022 Hospital Discharge instructions Patient [...] include: ?Spinach. ?Rhubarb. ?Beets. ?Potato chips and hungarian fries. ?Nuts. If you regularly take a diuretic medicine, make sure to eat at least 1 2 fruits or vegetables high in potassium each day. These include: ?Avocado. ?Banana. ?Phoenicia, prune, carrot, or tomato juice. ?Baked potato. [...] Casseroles. Pizza. Lasagna. Frozen meals. Potato chips. Bulgarian fries. Summary You can reduce your risk [...] 07/14/2011 Document Revised: 07/09/2019 Document Reviewed: 02/27/2017 [employer] Patient Education 2020 Try[employer]. Follow Up Care 10/28/2021 11:17:16 With:SOIFYA MAGANA, Sharla Layton, URL Address: [facility] [address] , [place] [address]- When: Unknown [facility] 04-19-2022 Hospital Discharge instructions Patient Education 04/19/2022 13:43:01 Kidney Stones, Dokh-jv-Mqfa Kidney Stones Kidney stones are rock-like masses [...] Follow these instructions at home: Medicines Take gtkw-oxn-zmitxng and prescription medicines only as told by [...] 09/04/2008 Document Revised: 08/05/2019 Document Reviewed: 08/05/2019 [employer] Patient Education 2019 Tryolabs. Follow Up Care 04/17/2022 09:12:19 With:SOFIYA MAGANA, Sharla Layton, URL Address: [address] [place], [place] [phone]- When: Unknown [facility] 10-28-2021 Hospital Discharge instructions Patient Education 10/28/2021 [...] one of these risk factors: ?Being of -[place] descent. ?Having a family history of prostate [...] you: Are older than age 55. Are -Prydeinig. Have a father, brother, or uncle who [...] 12/28/2017 Document Revised: 03/01/2018 Document Reviewed: 12/28/2017 [employer] Patient Education 2020 Try[employer]. Follow Up Care 08/17/2021 11:01:21 With:SOFIYA MAGANA, Sharla Layton, URL Address: [facility] [address] , [place] [address] [phone] When:Within 6 Month(s) Comments:w/ PSA and KUB [facility] 08-16-2021 Hospital Discharge instructions Patient Education 08/16/2021 [...] one of these risk factors: ?Being of -[place] descent. ?Having a family history of prostate [...] you: Are older than age 55. Are -Prydeinig. Have a father, brother, or uncle who [...] 12/28/2017 Document Revised: 03/01/2018 Document Reviewed: 12/28/2017 [employer] Patient Education 2020 Tryolabs. Follow Up Care 06/27/2021 09:31:40 With:Sharla MONTIEL MD, URL Address: [facility] [address] [place] [address]- When:10/17/2021 [facility] Evaluation + Plan note Future Appointments Appointment Date:10/28/2021 09:45:00 AM Scheduled Provider:Sharla MONTIEL MD Location:[facility] Appointment Type:URO Office Visit Diagnostic Tests PendingPSA Total 08/17/21 [facility] Evaluation + Plan note Future Appointments Appointment Date:05/01/2022 09:15:00 AM Scheduled Provider:Sharla MONTIEL MD Location:[facility] Appointment Type:URO Office Visit Diagnostic Tests PendingPSA Total 10/28/21 [facility] Evaluation + Plan note Future Appointments Appointment Date:05/01/2022 09:15:00 AM Scheduled Provider:Sharla MONTIEL MD Location:[facility] Appointment Type:URO Office Visit Diagnostic Tests PendingCalculi Analysis Urinary 10/28/21 [facility] Evaluation + Plan note Future Appointments Appointment Date:05/01/2022 09:15:00 AM Scheduled Provider:Sharal MONTIEL MD Location:[facility] Appointment Type:URO Office Visit [facility] [facility] Evaluation + Plan note Future Appointments Appointment Date:10/30/2022 10:30:00 AM Scheduled Provider:Sharla MONTIEL MD [facility] App[facility] Type:URO Office Visit Diagnostic Tests PendingPSA Total 05/01/22 [facility] [id number] outdoors Evaluation + Plan note Future Appointments Appointment Date:10/30/2022 10:30:00 AM Scheduled Provider:Sharla MONTIEL MD Location:[facility] Appointment Type:URO Office Visit [facility] Evaluation + Plan note Future Appointments Appointment Date:02/05/2023 11:30:00 AM Scheduled Provider:Sharla MONTIEL MD [facility] Appointment Type:URO Office Visit [facility] Evaluation + Plan note Future Appointments Appointment Date:01/08/2023 09:30:00 AM Scheduled Provider:Sharla MONTIEL MD Location:[facility] Appointment Type:URO Office Visit [facility] Evaluation + Plan note Future Appointments Appointment Date:01/07/2024 11:15:00 AM Scheduled Provider:Sharla MONTIEL MD Location:[facility] Appointment Type:URO Office Visit Diagnostic Tests PendingPSA Total 07/02/23 [facility] Evaluation + Plan note Future Appointments Appointment Date:01/09/2025 10:45:00 AM Scheduled Provider:Sharla MONTIEL MD Location:[facility] Appointment Type:URO Office Visit Diagnostic Tests PendingPSA Total 01/07/24 [facility] Evaluation note No assessment inform ation available [facility] Work Phone: Evaluation note Diagnosis [...] available for this section [facility] Hospital Discharge instructions No data available for this section [facility] filedocumented in this encounter [facility] filedocumented in this encounter [facility]ructionsNot on filedocumented in this encounter [facility] No data available for this section [facility] reason for referral (narrative)* Consultation (Routine) - Authorized Specialty Diagnoses / Procedures Referred By Kirstin abdalla Referred To Contact General Surgery Diagnoses Non-recurrent unilateral inguinal hernia without obstruction or gangrene Keerthi Gill MD [address] [place] [address] Jeana Parra DO [address] [place] [id number] Referral ID Status Reason Start Date Expiration Date Visits Requested Visits Authorized [id number] Authorized Specialty Services Required 04/24/2023 04/23/2024 1 1 [facility] Summary Purpose Family History No Family [...] section and content) DATE CREATED AUTHOR 03/10/2019 [facility] DATE CREATED AUTHOR AUTHOR'S ORGANIZ ATION 06/04/2021 [facility] DATE CREATED AUTHOR AUTHOR'S ORGANIZ ATION 09/10/2022 [facility] DATE CREATED AUTHOR AUTHOR'S ORGANIZ ATION 04/07/2023 [facility] DATE CREATED AUTHOR AUTHOR'S ORGANIZ ATION 04/29/2023 [facility] DATE CREATED AUTHOR AUTHOR'S ORGANIZ ATION 08/01/2023 [facility] DATE CREATED AUTHOR AUTHOR'S ORGANIZ ATION 02/16/2024 [facility] DATE CREATED AUTHOR AUTHOR'S ORGANIZ ATION 03/02/[address] [facility] Care Team (unrecognized sect ion and content) Team Status: Inactive Member Role Status Dates Krishna Solorio DO Attending Provider Active Monica Parham DO Primary Care Provider Active Team Status: Active Member Role Status Dates Monica Parham , Primary Care Provider Active Cloth Shrinking Supervisor Relationship Specialty Start Date End Date Keerthi Gill MD [address], [place] [address] PCP - General Internal Medicine 03/22/23 [employer] Shrinking Supervisor Relationship Specialty Start Date End Date Keerthi Gill MD [address], [facility] [place], [place] [id number] PCP - General Internal Medicine 03/22/23 Cloth Shrinking Supervisor Relationship Specialty Start Date End Date Keerthi Gill MD [address], [facility] [place] [facility], [place] [id number] PCP - General Internal Medicine 03/22/23 Team Status: Active Member Role Status Dates NON STAFF Primary Care Provider Active Team Status: Inactive Member Role Status Dates hSarla Montiel MD Attending Provider Active St art: [...] Gill MD [address], [place] [address] Jeana Parra DO [address] [place] [id number] Referral ID Status Reason Start Date Expiration Date Visits Requested Visits Authorized [id number] Pending Review Specialty Services Required 04/24/2023 04/23/2024 [...] BE BASED ON THE PRIMARY CLINICAL RECORDS. [employer] [facility]. provides no warranty or guarantee of the accuracy or completeness of information in this document.
== END 2024-03-13 10:15 | disposition home or self-care (01) ==
LOC: RAD 10:16
PROVIDERS: PCP Student in an Organized Health Care Education/Training Program; Visit Provider Urology
DX: N20.0 Calculus of kidney (principal)
CPT/HCPCS: 74018

== ENCOUNTER 2024-03-29 10:38 | Emergency (ER) | payer BC, SELFPAY ==
[2024-03-29 10:43] VITALS: BP 131/79; PULSE 79; TEMP 36.7; O2SAT 98; BMI 27.1
--- NOTE | 2024-03-29 10:48 | XR_ITS ---
[address] [address] Patient Name: KATHERINE PONCE MRN: [id number] date: 1955 Sex: M Assigned Patient Location: ER Current Patient Location: ER Accession/Order Number: [id number] Exam Date: 03/29/2024 10:55 Report Date: 03/29/2024 11:40 At the request of: JUSTINE QUINTANA Procedure: XR chest 2V EXAM: CHEST 2 VIEWS HISTORY: Dizzy TECHNIQUE: PA and lateral views chest. COMPARISON: None. FINDINGS: The lungs are clear. There is no focal lung consolidation, pleural effusion or pneumothorax. Pulmonary vasculature is within normal limits. The cardiomediastinal silhouette is normal. XR/XR chest 2V IMPRESSION: 1. No acute cardiopulmonary disease. Electronically authenticated by: MICHAEL LYMAN Date: 03/29/2024 11:40
--- NOTE | 2024-03-29 10:48 | ECG_ITS ---
[facility] Test Date: 2024-03-29 Pat Name: KATHERINE PONCE Department: Room: - Gender: Male Emergency Physician: : 1955 Requested By: Order Number: [id number] Reading MD: MEEK CHAVES Measurements Intervals [place] Rate: 72 P: 61 WY: 168 QRS: 71 QRSD: 96 T: 62 QT: 370 QTc: 394 Interpretive Statements 1100 Sinus rhythm 3114 Cannot rule out anterior myocardial infarction, age undetermined 9150 abnormal ECG Compared to ECG 02/25/2024 13:26:36 Myocardial infarct finding now present Sinus bradycardia no longer present Electronically Signed On 03-30-2024 7:44:35 EST by MEEK CHAVES
[2024-03-29 11:00] LABS: Basophils Percent Auto 0.7 % (0.2-2.0); Eosinophils Absolute Auto 0.1 10^3/uL (0.0-0.7); Eosinophils Percent Auto 1.5 % (0.9-7.0); Hematocrit 45.5 % (42.0-54.0); Hemoglobin 15.1 g/dL (14.0-18.0); Immature Granulocytes Abs Auto 0.01 10^3/uL (0.00-0.03); Immature Granulocytes Pct Auto 0.2 % (0.0-0.5); Lymphocytes Absolute Auto 1.9 10^3/uL (1.2-3.8); Lymphocytes Percent Auto 30.7 % (20.5-60.0); Mean Corpuscular HGB Conc 33.2 g/dL (29.9-35.2); Mean Corpuscular Hemoglobin 28.4 pg (25.9-34.0); Mean Corpuscular Volume 85.7 fL (80.0-94.0); Mean Platelet Volume 10.2 fL (9.5-13.5); Monocytes Absolute Auto 0.6 10^3/uL (0.3-0.8); Neutrophils Absolute Auto 3.5 10^3/uL (1.4-6.5); Neutrophils Percent Auto 56.9 % (43.0-75.0); Platelet Count 193 10^3/uL (150-450); Red Blood Count 5.31 10^6/uL (4.70-6.10); Red Cell Distribution Width 13.4 % (11.0-15.0); White Blood Count 6.1 10^3/uL (4.0-11.0)
[2024-03-29 11:10] VITALS: BP 109/75; BP 117/76; BP 122/78; PULSE 68; PULSE 74; PULSE 86
[2024-03-29 11:24] LABS: Alanine Aminotransferase 30 U/L (16-63); Albumin Globulin Ratio 1.1; Albumin Level 3.7 g/dL (3.4-5.0); Alkaline Phosphatase 73 U/L (46-116); Anion Gap 12.7; Aspartate Amino Transferase 29 U/L (15-37); BUN Creatinine Ratio 14.4; Bilirubin Total 0.7 mg/dL (0.2-1.0); Calcium 9.2 mg/dL (8.5-10.1); Carbon Dioxide 26.3 mmol/L (21.0-32.0); Chloride 107 mmol/L (98-107); Estimated GFR (African America >60 (>=60 mL/min/1.73m^2); Estimated GFR (Non-African Ame 51 (>=60 mL/min/1.73m^2); Globulin 3.3 g/dL; Glucose 95 mg/dL (74-106); Sodium 142 mmol/L (136-145); Troponin I High Sensitivity 28.1 pg/mL (4.0-76.1)
[2024-03-29] MEDS: 0.9 % SODIUM CHLORIDE 1,000 ML 1000 ML IV (11:44)
--- NOTE | 2024-03-29 12:43 | ED.GENADUL1 ---
HPI HPI - General Adult General Chief complaint: Arrhythmia/Palpitations Stated complaint: HEART IS RACING, DIZZINESS Time Seen by Provider: 03/29/24 10:48 Source: patient Mode of arrival: walk-in History of Present Illness HPI narrative: Patient is a 68-year-old male who is presenting to the ER today with chief complaint of intermittent lightheadedness, dizziness, and intermittent heart racing. Patient has never had any type of chest pain or tightness, no shortness of breath. Patient has a portable pulse ox monitor that he has been using, able intermittently shows heart rate anywhere from the 120s to the 100s and then normal. Patient has never had a stress test or echocardiogram. Patient never worn a Holter monitor. Patient has no history of the regular afebrile a flutter. Patient is very physically fit. 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 Patient takes no medications daily besides [id number] medications. Patient has no headache or neck pain. No bowel or bladder changes, no other acute complaints. No recent traveling. No cocaine use. Patient was playing racquetbBUX earlier today and he noticed some of his symptoms of lightheaded, mild dizziness, no vertigo. Intermittent heart racing. Patient came into the ER via be evaluated. No family history of heart attacks at early age. All systems are negative except as noted/marked. All systems reviewed and otherwise negative. Nurses note and vital signs reviewed and patient is not hypoxic. General: The patient appears well and in no apparent distress. Patient is resting comfortably on cart. Patient is not toxic, lethargic, or listless. Patient is physically fit. Skin: Warm, dry, no pallor noted. There is no rash noted. No petechiae, purpura. Head: Normocephalic, atraumatic Eye: Normal conjunctiva, no drainage, EOMI. PERRL Ears, Nose, Mouth, and Throat: oral mucosa is moist. Nares patent. Mouth without vesicles. Cardiovascular: Regular Rate and Rhythm, no murmur, gallop, rub. No reproducible tenderness to palpation to bilateral anterior, lateral, posterior chest wall. Respiratory: Patient is in no distress, no accessory muscle use, lungs are clear to auscultation, no wheezing, rales or rhonchi Back: non-tender, no CVA tenderness bilaterally to percussion. No CT LS midline pain GI: no tenderness to palpation, no masses appreciated. No rebound, guarding, or rigidity noted. No distention Musculoskeletal: Patient has full range of motion of all of the extremities, no motor, sensory, or focal neurological deficits Neurological: A&O x4, normal speech Psychiatric: Cooperative Related Data Home Medications ?Medication ?Instructions ?Recorded ?Confirmed ixekizumab 80 mg/mL subcutaneous 80 mg subcut .monthly 07/26/23 03/29/24 auto-injector (Taltz Autoinjector) omega-3 acid ethyl esters 1 gram 1 cap PO DAILY 07/26/23 03/29/24 capsule potassium citrate 10 mEq (1,080 10 meq PO BID 07/26/23 03/29/24 mg) tablet,extended release cholecalciferol (vitamin D3) 10 10 mcg PO DAILY 02/25/24 03/29/24 mcg (400 unit) capsule tamsulosin 0.4 mg capsule 0.4 mg PO DAILY 03/29/24 03/29/24 Allergies Allergy/AdvReac Type Severity Reaction Status Date / Time Sulfa (Sulfonamide Allergy Mild Rash Verified 02/25/24 13:12 Antibiotics) Opioid HPI Opioid Management Most Recent Opioid Data: Last Pain Scale 4 03/06/24 12:25 [facility] History (Updated 03/29/24 @ 12:42 by Krystian Brown MD) Psoriasis ?L40.9 - Psoriasis, unspecified (ICD-10) DDD (degenerative disc disease) Postoperative nausea and vomiting ?R11.2 - Nausea with vomiting, unspecified (ICD-10) ?Z98.890 - Other specified postprocedural states (ICD-10) Weak urine stream ?R39.12 - Poor urinary stream (ICD-10) Gross hematuria ?R31.0 - Gross hematuria (ICD-10) Flank pain ?R10.9 - Unspecified abdominal pain (ICD-10) Epididymitis ?N45.1 - Epididymitis (ICD-10) Back pain ?M54.9 - Dorsalgia, unspecified (ICD-10) Nausea ?R11.0 - Nausea (ICD-10) BPH with obstruction/lower urinary tract symptoms ?N40.1 - Benign prostatic hyperplasia with lower urinary tract symptoms (ICD-10) ?N13.8 - Other obstructive and reflux uropathy (ICD-10) Elevated PSA ?R97.20 - Elevated prostate specific antigen [PSA] (ICD-10) Kidney stones ?N20.0 - Calculus of kidney (ICD-10) Surgical History (Updated 02/25/24 @ 13:18 by Elaine Avina NP) H/O hand surgery ?Z98.890 - Other specified postprocedural states (ICD-10) Hx of tonsillectomy ?Z90.89 - Acquired absence of other organs (ICD-10) History of appendectomy ?Z90.49 - Acquired absence of other specified parts of digestive tract (ICD-10) H/O prostate biopsy ?Z98.890 - Other specified postprocedural states (ICD-10) H/O cystoscopy ?Z98.890 - Other specified postprocedural states (ICD-10) S/P TURP ?Z90.79 - Acquired absence of other genital organ(s) (ICD-10) S/P cystoscopy with ureteral stent placement ?Z96.0 - Presence of urogenital implants (ICD-10) History of removal of ureteral stent ?Z98.890 - Other specified postprocedural states (ICD-10) Family History (Updated 02/25/24 @ 13:18 by Elaine Avina NP) Other Cancer Family history of renal failure Social History (Updated 02/25/24 @ 13:15 by Elaine Avina NP) Within the past year, how often did you have a drink containing alcohol: never Score interpretation: A score less than 4 is consistent with normal alcohol consumption. Smoking status: Never smoker Non-prescribed substance use: denies use Previous occupational history: Retired Highest level of school completed/degree received: high school graduate Exam Constitutional Vital Signs, click to edit/add: Last Vital Signs Temp 98.0 F 03/29/24 10:43 Pulse 68 03/29/24 11:10 Resp 20 03/29/24 10:43 BP 117/76 03/29/24 11:10 Pulse Ox 98 03/29/24 10:43 O2 Del Method Room Air 03/29/24 10:43 Course Vital Signs Vital signs: Vital Signs Temperature 98.0 F 03/29/24 10:43 Pulse Rate 79 03/29/24 10:43 Respiratory Rate 20 03/29/24 10:43 Blood Pressure 131/79 03/29/24 10:43 Pulse Oximetry 98 03/29/24 10:43 Oxygen Delivery Method Room Air 03/29/24 10:43 Temperature 98.0 F 03/29/24 10:43 Pulse Rate 68 03/29/24 11:10 Respiratory Rate 20 03/29/24 10:43 Blood Pressure 117/76 03/29/24 11:10 Pulse Oximetry 98 03/29/24 10:43 Oxygen Delivery Method Room Air 03/29/24 10:43 Medical Decision Making MDM Narrative Medical decision making narrative: Patient EKG, chest x-ray acute findings, lab work showed no acute findings. Patient was given 1 L of IV fluid. Patient's orthostatics were 18 point difference systolic. Patient says he does feel much better after the IV fluids. Patient was educated the next that may be a Holter monitor if patient keeps feeling intermittent heart racing. Patient has not had a stress test or echocardiogram either. Education was done on both, patient will follow-up with PCP for further outpatient testing. No question at discharge Lab Data Lab results reviewed: Yes I reviewed the patient's lab results Labs: Lab Results 03/29/24 Range/Units 10:53 WBC 6.1 (4.0-11.0) 10^3/uL RBC 5.31 (4.70-6.10) 10^6/uL Hgb 15.1 (14.0-18.0) g/dL Hct 45.5 (42.0-54.0) % MCV 85.7 (80.0-94.0) fL MCH 28.4 (25.9-34.0) pg MCHC 33.2 (29.9-35.2) g/dL RDW 13.4 (11.0-15.0) % Plt Count 193 (150-450) 10^3/uL MPV 10.2 (9.5-13.5) fL Neut % (Auto) 56.9 (43.0-75.0) % Lymph % (Auto) 30.7 (20.5-60.0) % [place] % (Auto) 10.0 (1.7-12.0) % Eos % (Auto) 1.5 (0.9-7.0) % Baso % (Auto) 0.7 (0.2-2.0) % Neut # (Auto) 3.5 (1.4-6.5) 10^3/uL Lymph # (Auto) 1.9 (1.2-3.8) 10^3/uL [place] # (Auto) 0.6 (0.3-0.8) 10^3/uL Eos # (Auto) 0.1 (0.0-0.7) 10^3/uL Baso # (Auto) 0.0 (0.0-0.1) 10^3/uL Abs Immat Gran (auto) 0.01 (0.00-0.03) 10^3/uL Imm/Tot Granulo (auto) 0.2 (0.0-0.5) % Sodium 142 (136-145) mmol/L Potassium 4.0 (3.5-5.1) mmol/L Chloride 107 (98-107) mmol/L Carbon Dioxide 26.3 (21.0-32.0) mmol/L Anion Gap 12.7 BUN 20.0 H (7.0-18.0) mg/dL Creatinine 1.39 H (0.70-1.30) mg/dL Est GFR ( Amer) >60 (>=60 mL/min/1.73m^2) Est GFR (Non-Af Amer) 51 L (>=60 mL/min/1.73m^2) BUN/Creatinine Ratio 14.4 Glucose 95 (74-106) mg/dL Calcium 9.2 (8.5-10.1) mg/dL Total Bilirubin 0.7 (0.2-1.0) mg/dL AST 29 (15-37) U/L ALT 30 (16-63) U/L Alkaline Phosphatase 73 (46-116) U/L Troponin I High Sens 28.1 (4.0-76.1) pg/mL NT-Pro-B Natriuret Pep 146.0 (<=900.0) pg/mL Total Protein 7.0 (6.4-8.2) g/dL Albumin 3.7 (3.4-5.0) g/dL Globulin 3.3 g/dL Albumin/Globulin Ratio 1.1 ECG Data Attestation: I personally reviewed and interpreted this ECG as follows: (EKG interpretation. Normal sinus rhythm at 72 beats a minute. Normal axis deviation. No acute ST elevation, no acute ectopy. QTc of 394) Discharge Plan Discharge Chief Complaint: Arrhythmia/Palpitations Clinical Impression: Lightheadedness, Mild dehydration Patient Disposition: Home, Self-Care Time of Disposition Decision: 12:41 Condition: Fair Mode of Transportation: Private Vehicle Prescriptions / Home Meds: No Action potassium citrate 10 mEq (1,080 mg) tablet extended release 10 meq PO BID omega-3 acid ethyl esters 1 gram capsule 1 cap PO DAILY Taltz Autoinjector 80 mg/mL auto-injector 80 mg SUBCUT .monthly Rx Instructions: every 28 days. Due 07/29 cholecalciferol (vitamin D3) 10 mcg (400 unit) capsule 10 mcg PO DAILY tamsulosin 0.4 mg capsule 0.4 mg PO DAILY Print Language: Surinamese Instructions: Dehydration (ED), Near Syncope (ED), Lightheadedness (ED), Dizziness (ED) Additional Instructions: Continue increasing fluids at home, Gatorade, Powerade, water. Call your PCP Sunday, the next step would be to have a Holter monitor placed for 3 or 7 days to try to capture any type of arrhythmia you might be having. You may need a outpatient stress test or echocardiogram as recommended by PCP. If you are having any significant chest pressure, severe shortness of breath, passing out, any other acute concerns, or if your heart rate stays above 120 for a persistent length of time, return back to the ER for reevaluation. Referrals: Mirtha Veliz ND [Primary Care Provider] - 1 week Discharge Date/Time: 03/29/24 13:18
--- OUTSIDE RECORDS SUMMARY | 2024-03-29 12:46 | XMS_ITS | CCD ---
Author Organization [facility] Care Team Providers [facility] Director Name Role Phone MONICA PARHAM Primary Care Physician Unavailab DO Krishna Beasley Attending Provider [phone] DO Monica Parham Primary Care Provider [phone] ., DR MAGDALENO Admitting Unavailable MONTIEL [...] Primary Care Unavailable Sharla Montiel Admitting Unavailable Sofiya, Sharla Attending Unavailable MONTIEL, Sharla R Attending Unavailable CORI, MONICA Primary Care Unavailable Sharla MONTIEL R Attending Unavailable CORI, MONICA Primary Care [...] Drug Allergy Unknown (qualifier value) [facility] (12 sources) Sulfonamides (Antibiotic); Translations: [sulfa drugs] Drug allergy Itching (finding), Weal (disorder) [facility] (1 source) Sulfonamides (Antibiotic) Drug allergy (disorder) 08-23-19 17 [facility] (5 sources) Sulfonamides (Antibiotic); Translations: [SULFA (SULFONAMIDE ANTIBIOTICS)] Propensity to adverse reactions to drug 09-22-19 17 [facility] (1 source) Sulfonamides (Antibiotic) Drug allergy (disorder) 06-13-19 19 [facility] Repository Medications Current Medications Medication [...] day(s), # 28 cap(s), Refills(s) 0, Pharmacy: [facility]/pharmacy #[id number], 179, cm, 05/01/22 9:25:00 EST, Height/Length Dosing, 88, kg, 05/01/22 9:25:00 EST, Weight Dosing Start Date: 09/18/22 Stop Date: 10/02/22 Status: Ordered dutasteride 0.5 mg oral capsule (4 sources) 5-alpha Reductase Inhibitor Start: 10-09-2022 take 1 capsule by mouth once daily dutasteride 0.5 mg Cap 0.5 mg = 1 cap(s), Oral, Daily, # 30 cap(s), Refills(s) 11, [id number], 178, cm, 10/09/22 8:32:00 EDT, Height/Length Dosing, [...] day(s), # 14 tab(s), Refills(s) 0, Pharmacy: [facility]/pharmacy #[id number], 179, cm, 05/01/22 [...] tab(s), Oral, BID, 180 tab(s), Refill(s) 3, [facility]/pharmacy #[id number], 178, cm, 07/02/23 9:59:00 EDT, Height/Length Dosing, 90.2, kg, 07/02/23 9:59:00 EDT, Weight Dosing Start Date: 09/24/23 Status: Ordered Start: 09-18-2022 potassium CITR ATE 10 mEq ER Tab 10 mEq, 1 tab(s), Oral, BID, 90 tab(s), Refill(s) 3, [facility]/pharmacy #[id number], 179, cm, 05/01/22 9:25:00 EST, Height/Length Dosing, 88, kg, 05/01/22 9:25:00 EST, Weight Dosing Start Date: 09/18/22 Status: Ordered Start: 10-28-2021 potassium CITR ATE 10 mEq ER Tab 10 mEq, 1 tab(s), Oral, BID, 90 tab(s), Refill(s) 3, [facility]/pharmacy #[id number], 177.8, cm, 10/28/21 [...] Daily, # 90 cap(s), Refills(s) 3, Pharmacy: [facility]/pharmacy #[id number], 179, cm, 05/01/22 [...] 07-17-2022 Chronic Other aftercare (1 source) 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; 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 01/04/24 - 7.17 MRI 03/10/19 at [facility] - negative. TRUS/bx 2008 - negative. Prostate MRI 07/30/23 [facility] [place] Neg. PSA has decreased from prior. No indication for further intervention, will cont to monitor. 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 S/p TURP 08/17/22 - chronic prostatitis. Prostate MRI 07/30/23 [facility] - Prostate volume 89 mL. Stopped Dutasteride [...] [facility] [address], [place] [address] [phone] Additional Instructions: 1 yr w/ PSA Patient Education Prostate Cancer Screening I, Marilu Meng, personally scribed for Dr. Montiel on 01/07/2024 12:40:47. . Documentation recorded by the scribe, Marilu Meng, accurately reflects the services(s) I performed and decisions made by me. Authenticated by Dr. Mitchell (more content not included)... Normal [facility] Comment on above: Result Comment: Elec tronically Signed By: Sharla MONTIEL MD\.br\Date and Time Signed: 01/07/24 12:43 EDT\.br\Electronically Co-Signed By: Marilu Meng\.br\Date and Time Co-Signed: 01/07/24 12:41 EDT RAD - MRI Reporton RAD - MRI Report [id number] #1.00TIFF Normal [facility] ISTAT XRay CREon 07-30-2023 ISTAT GFR > 60.0 Normal [facility] Comment on above: Result Comment: PERF ORMED BY: [place] [address] PATHOLOGIST RIPENING ROOM HAND TRENT STEWART M.D. Performed By: #### I SCRE #### [address] MR prostate wo/w conon 07-29 MR prostate wo/w con [facility] [place] [address] [place] [address] MRI Report Signed Patient: Zander Ponce MR#: [id number] : 1955 Acct:[id number] Age/Sex: 67 / M ADM Date: 07/30/23 Loc: Room: Type: [facility] Attending Dr: Sharla Montiel MD Copies to: [...] Ayala Jr., D.O.07/30/2023 6:41 PM Dictation Location: [facility]15 Transcribed By: [facility] 07/30/231840 Dictated By: Terrell Ayala Jr, DO 07/30/23 183 Signed By: 07/30/231840 Normal [facility] No Panel InformationOrdered By: Sharla Montiel on 07-30-2023 Bedside Estimated GFR (eGFR) > 60.0 [facility] Whole blood creatinine measu rementOrdered By: Sharla Montiel on 07-30-2023 Creatinine [Mass/Vol] 1.3 mg/dL Normal 0.6-1.3 [facility] Comment on above: ER/ESD physician is notified/shown all ISTAT results.Critical values may be confirmed by laboratory testing ifdeemed necessary by ER attending doctor. Result Comment: ER/E SD physician is notified/shown all ISTAT results. Critical values may be confirmed by laboratory testing if deemed necessary by ER attending doctor. Performed By: #### I SCRE #### [address] Ambulatory Visit Summaryon 0 07-02-2023 Ambulatory Visit Summary LOKESH PONCE Berkley :1955 Visit Date:07/02/2023 Ambulatory Visit Instructions Your [...] MAGANA, Sharla Layton Where: [facility] Normal [facility] Insurance Correspondenceon 0 07-02-2023 Insurance Correspondence [id number] 5#1.00TIFF Normal [facility] Lab Reportson 07-02-2023 Lab Reports [id number] #1.00TIFF Normal [facility] Patient Educationon 07-02-19 Patient Education Oncology [...] Where to find more information ? [employer] [place] [employer]: www.cancer.org ? [place] [employer]: www.auanet.org Contact a health care [...] adds flu (more content not included)... Normal [facility] Urology Office/Clinic Noteon 07-02-2023 Urology Office/Clinic [...] 4.13 (Dutasteride 8.26) Last MRI 03/10/19 at [facility] - negative. TRUS/bx 2008 - negative. [...] [facility] [address], [place] [address] [phone] Additional Instructions: 6 mos w/ PSA Patient Education Prostate Cancer Screening I, Marilu Meng, personally scri (more content not included)... Normal [facility] Comment on above: Result Comment: Elec [...] Delmar Macias MD on 04/26/2023 10:41 AM I, Owen Pena have personally reviewed the image(s) and agree with and/or edited the report Finalized by Owen Pena on 04/26/2023 4:07 PM Normal [facility] US SCROTUMon 04-26-2023 US SCROTUM US [...] Owen Pena on 04/26/2023 11:02 AM Normal [facility] US LELIA DOP LEG RTon 08-26-19 23 [...] by: GIOVANNY ZAYAS Date: 2022-08-25 15:47 Normal [facility] PROF CHEM 8 (BAS METB)on Anion gap [Moles/Vol] 7.8 mmol/L Normal [facility] Comment on above: Performed By: #### B MP ####[facility] [address] [address]Dr. Leeanna Carlson Calcium [Mass/Vol] 9.1 mg/dL Normal 8.5-10.1 [facility] Comment on above: Performed By: #### B MP ####[facility] [address] [place] [address] [id number]. Leeanna Carlson Chloride [Moles/Vol] 105 mmol/L Normal 98-107 [facility] Comment on above: Performed By: #### B MP ####[facility] [address] [id number]. Leeanna Carlson CO2 [Moles/Vol] 28.6 mmol/L Normal 21.0-32.0 [facility] Comment on above: Performed By: #### B MP ####[facility] [address] [address]Dr. Leeanna Carlson Creatinine [Mass/Vol] 1.18 mg/dL Normal 0.70-1.30 [facility] Comment on above: Performed By: #### B MP ####[facility] [address] [place] [address]Dr. Leeanna Carlson EGFR-AF ALGERIAN >60 Normal >=60 [facility] Comment on above: Performed By: #### B MP ####[facility] [address] [place], [place] [address]Dr. Leeanna Carlson EGFR-NON AF ALGERIAN >60 Normal >=60 [facility] Comment on above: Performed By: #### B MP ####[facility] [address] [place], [place] [address]Dr. Leeanna Carlson Glucose [Mass/Vol] 96 mg/dL Normal 74-106 [facility] Comment on above: Performed By: #### B MP ####[facility] [address] [place], [place] [address]Dr. Leeanna Carlson Potassium [Moles/Vol] 4.4 mmol/L Normal 3.5-5.1 [facility] Comment on above: Performed By: #### B MP ####[facility] [address] [place], [place] [address]Dr. Leeanna Carlson Sodium [Moles/Vol] 137 mmol/L Normal 136-145 [facility] Comment on above: Performed By: #### B MP ####[facility] [address] [place], [place] [address]Dr. Leeanna Carlson Urea nitrogen [Mass/Vol] 17.0 mg/dL Normal 7.0-18.0 [facility] Comment on above: Performed By: #### B MP ####[facility] [address] [place], [place] [address]Dr. Leeanna Carlson Urea nitrogen/Creatinine [Mass ratio] 14.4 mg/mg Normal [facility] Comment on above: Performed By: #### B MP ####[facility] [address] [address]Dr. Leeanna Carlson PROTIMEon 08-09-2022 INR Coag (PPP) [Relative time] 1.01 {INR} Normal [facility] Comment on above: Performed By: #### P T, PTT ####[facility] [address] [place], [place] [address]Dr. Leeanna Carlson INR GUIDELINES SEE BELOW Normal [facility] Comment on above: Result Comment: AIRAM RED INR: 2.0 - 3.0 CONDITIONS NOT LISTED BELOW 2.5 - 3.5 FOR PROSTHETIC HEART VALVE REPLACEMENT 2.5 - 3.5 RECURRENT THROMBOSIS Performed By: #### P T, PTT ####[facility] [address] [place], [place] [address]Dr. Leeanna Carlson PT Coag (PPP) [Time] 10.7 s Normal 9.0-11.6 [facility] Comment on above: Performed By: #### P T, PTT ####[facility] [address] [place], [place] [address]Dr. Leeanna Carlson PTTon 08-09-2022 aPTT Coag (Bld) [Time] 29.2 s Normal 22.3-36.2 [facility] Comment on above: Performed By: #### P T, PTT ####[facility] [address] [place], [place] [address]Dr. Leeanna Carlson CBC AUTO DIFFon 07-28-2022 BASO # 0.0 103/ul Normal 0.0-0.1 [facility] Comment on above: Performed By: #### C BC #### [facility] [address] [place] [address] Dr. Leeanna Carlson Basophils/100 WBC (Bld) 0.8 % Normal 0.2-2.0 [facility] Comment on above: Performed By: #### C BC #### [facility] [address] [place] [address] Dr. Leeanna Carlson EO # 0.0 103/ul Normal 0.0-0.7 [facility] Comment on above: Performed By: #### C BC #### [facility] [address] [place] [address] Dr. Leeanna Carlson Eosinophils/100 WBC (Bld) 0.6 % Critically low 0.9-7.0 [facility] Comment on above: Performed By: #### C BC #### [facility] [address] [place] [address] Dr. Leeanna Carlson Erythrocyte distribution width (RBC) [Ratio] 13.3 % Normal 11.0-15.0 [facility] Comment on above: Performed By: #### C BC #### [facility] [address] [place] [address] Dr. Leeanna Carlson Hematocrit (Bld) [Volume fraction] 46.5 % Normal 42.0-54.0 [facility] Comment on above: Performed By: #### C BC #### [facility] [address] [place] [address] Dr. Leeanna Carlson Hemoglobin (Bld) [Mass/Vol] 15.4 g/dL Normal 14.0-18.0 [facility] Comment on above: Performed By: #### C BC #### [facility] [address] [place] [address] Dr. Leeanna Carlson IG # 0.01 10e3/ul Normal 0.00-0.03 [facility] Comment on above: Performed By: #### C BC #### [facility] [address] [place] [address] Dr. Leeanna Carlson IG % 0.2 % Normal 0.0-0.5 [facility] Comment on above: Performed By: #### C BC #### [facility] [address] [place] [address] Dr. Leeanna Carlson LYMPH # 1.8 103/ul Normal 1.2-3.8 [facility] Comment on above: Performed By: #### C BC #### [facility] [address] [place] [address] Dr. Leeanna Carlson Lymphocytes/100 WBC (Bld) 35.0 % Normal 20.5-60.0 [facility] Comment on above: Performed By: #### C BC #### [facility] [address] [place] [address] Dr. Leeanna Carlson MANUAL DIFF REQ NO Normal [place] Comment on above: Performed By: #### C BC #### [facility] [address] [place] [address] Dr. Leeanna Carlson MCH (RBC) [Entitic mass] 28.4 pg Normal 25.9-34.0 [facility] Comment on above: Performed By: #### C BC #### [facility] [address] [place] [address] Dr. Leeanna Carlson MCHC (RBC) [Mass/Vol] 33.1 g/dL Normal 29.9-35.2 [facility] Comment on above: Performed By: #### C BC #### [facility] [address] [place] [address] Dr. Leeanna Carlson MCV (RBC) [Entitic vol] 85.6 fL Normal 80.0-94.0 [facility] Comment on above: Performed By: #### C BC #### [facility] [address] [place] [address] Dr. Leeanna Carlson MONO # 0.6 103/ul Normal 0.3-0.8 [facility] Comment on above: Performed By: #### C BC #### [facility] [address] [place] [address] Dr. Leeanna Carlson Monocytes/100 WBC (Bld) 11.5 % Normal 1.7-12.0 [facility] Comment on above: Performed By: #### C BC #### [facility] [address] [place] [address] Dr. Leeanna Carlson NEUT # 2.7 103/ul Normal 1.4-6.5 [facility] Comment on above: Performed By: #### C BC #### [facility] [address] [place] [address] Dr. Leeanna Carlson Neutrophils/100 WBC (Bld) 51.9 % Normal 43.0-75.0 [facility] Comment on above: Performed By: #### C BC #### [facility] [address] [address] [address] Leeanna Carlson Platelet mean volume (Bld) [Entitic vol] 9.9 fL Normal 9.5-13.5 [facility] Comment on above: Performed By: #### C BC #### [facility] [address] [address] [address] Leeanna Carlson PLT 191 103/ul Normal 150-450 [facility] Comment on above: Performed By: #### C BC #### [facility] [address] [address] [address] Leeanna Carlson RBC 5.43 106/ul Normal 4.70-6.10 [facility] Comment on above: Performed By: #### C BC #### [facility] [address] [address] [address] Leeanna Carlson WBC 5.1 103/ul Normal 4.0-11.0 [facility] Comment on above: Performed By: #### C BC #### [facility] [address] [address] ABD/PELVIS WO CONon [...] JOHANNA MARIE Date: 2022-07-28 10:52 Normal [facility] ER URINE PROFILEon 3 Bilirubin Ql (U) Negative Normal NEGATIVE [facility] Comment on above: Performed By: #### U MICRO, ERUR #### [facility] [address] [place] [address] Dr. Leeanna Carlson Clarity (U) CLOUDY Abnormal CLEAR [facility] Comment on above: Performed By: #### U MICRO, ERUR #### [facility] [address] [place] [address] Dr. Leeanna Carlson Color (U) BROWN Abnormal YELLOW [facility] Comment on above: Performed By: #### U MICRO, ERUR #### [facility] [address] [place] [address] Dr. Leeanna KEENE A micrscopic examination will be performed if indicated. Normal [facility] Comment on above: Performed By: #### U MICRO, ERUR #### [facility] [address] [address] [address] Leeanna Carlson Glucose Ql (U) Negative Normal NEGATIVE [facility] Comment on above: Performed By: #### U MICRO, ERUR #### [facility] [address] [address] [address] Leeanna Carlson Hemoglobin Ql (U) LARGE Abnormal NEGATIVE [facility] Comment on above: Performed By: #### U MICRO, ERUR #### [facility] [address] [place] [address] Dr. Leeanna Carlson Ketones Ql (U) Negative Normal NEGATIVE [facility] Comment on above: Performed By: #### U MICRO, ERUR #### [facility] [address] [place] [address] Dr. Leeanna Carlson LEUKOCYTES TRACE Abnormal NEGATIVE [facility] Comment on above: Performed By: #### U MICRO, ERUR #### [facility] [address] [place] [address] Dr. Leeanna Carlson Nitrite Ql (U) Negative Normal NEGATIVE [facility] Comment on above: Performed By: #### U MICRO, ERUR #### [facility] [address] [place] [address] Dr. Leeanna Carlson pH (U) 5.0 [pH] Normal 5-9 [facility] Comment on above: Performed By: #### U MICRO, ERUR #### [facility] [address] [place] [address] Dr. Leeanna Carlson Protein (U) [Mass/Vol] 30 mg/dL Abnormal NEGAT KIERSTEN/ TRACE [facility] Comment on above: Performed By: #### U MICRO, ERUR #### [facility] [address] [place] [address] Dr. Leeanna Carlson SPEC GRAVITY 1.020 Normal 1.005-<=1.025 [facility] Comment on above: Performed By: #### U MICRO, ERUR #### [facility] [address] [place] [address] Dr. Leeanna Carlson UR MICRO IND INDICATED Normal [facility] Comment on above: Performed By: #### U MICRO, ERUR #### [facility] [address] [place] [address] Dr. Leeanna Carlson Urobilinogen Qn (U) 1.0 {Marito'U}/dL Normal 0.2 - 1. 0 [facility] Comment on above: Performed By: #### U MICRO, ERUR #### [facility] [address] [place] [address] Dr. Leeanna Carlson URINE MICROSCOPIC ONLYon BACTERIA NONE SEEN Normal NONE SEEN [facility] Comment on above: Performed By: #### U MICRO, ERUR #### [facility] [address] [place] [address] Dr. Leeanna Carlson Bacteria identified Cx Nom (U) NOT INDICATED Normal [facility] Comment on above: Performed By: #### U MICRO, ERUR #### [facility] [address] [address] [address] Leeanna Carlson CAST NONE SEEN Normal NONE SEEN [facility] Comment on above: Performed By: #### U MICRO, ERUR #### [facility] [address] [address] [address] Leeanna Carlson Crystals LM Nom (Urine sed) NONE SEEN Normal NONE SEEN [facility] Comment on above: Performed By: #### U MICRO, ERUR #### [facility] [address] [address] [address] Leeanna Carlson Epithelial cells LM Ql (Urine sed) RARE Normal NONE SEEN /RARE [facility] Comment on above: Performed By: #### U MICRO, ERUR #### [facility] [address] [place] [address] Dr. Leeanna Carlson MUCOUS NONE SEEN Normal NONE SEEN [facility] Comment on above: Performed By: #### U MICRO, ERUR #### [facility] [address] [address] [address] Leeanna Carlson RBC (U) [#/Vol] /uL Abnormal 0-2 [facility] Comment on above: Performed By: #### U MICRO, ERUR #### [facility] [address] [place] [address] Dr. Leeanna Carlson WBC 0-2 Abnormal NONE SEEN [facility] Comment on above: Performed By: #### U MICRO, ERUR #### [facility] [address] [address] [address] Leeanna Carlson CULTURE URINEon 06-14-2022 CULTURE URINE Culture Observations: NO GROWTH. Normal [facility] Comment on above: Performed By: #### U RCX ####[facility] [address] [address]Dr. Leeanna Carlson UA RANDOMon 06-14-2022 Bilirubin Ql (U) Negative Normal NEGATIVE [facility] Comment on above: Performed By: #### U A #### [facility] [address] [place] [address] Dr. Leeanna Carlson Clarity (U) CLEAR Normal CLEAR [facility] Comment on above: Performed By: #### U A #### [facility] [address] [place] [address] Dr. Leeanna Carlson Color (U) LT. YELLOW Normal YELLOW [facility] Comment on above: Performed By: #### U A #### [facility] [address] [place] [address] Dr. Leeanna Carlson Glucose Ql (U) Negative Normal NEGATIVE [facility] Comment on above: Performed By: #### U A #### [facility] [address] [place] [address] Dr. Leeanna Carlson Hemoglobin Ql (U) SMALL Abnormal NEGATIVE [facility] Comment on above: Performed By: #### U A #### [facility] [address] [place] [address] Dr. Leeanna Carlson Ketones Ql (U) Negative Normal NEGATIVE [facility] Comment on above: Performed By: #### U A #### [facility] [address] [place] [address] Dr. Leeanna Carlson LEUKOCYTES Negative Normal NEGATIVE [facility] Comment on above: Performed By: #### U A #### [facility] [address] [place] [address] Dr. Leeanna Carlson Nitrite Ql (U) Negative Normal NEGATIVE [facility] Comment on above: Performed By: #### U A #### [facility] [address] [place] [address] Dr. Leeanna Carlson pH (U) 6.0 [pH] Normal 5-9 [facility] Comment on above: Performed By: #### U A #### [facility] [address] [place] [address] Dr. Leeanna Carlson SPEC GRAVITY <=1.005 Abnormal 1.005-<=1.025 [place] Comment on above: Performed By: #### U A #### [facility] [address] [place] [address] Dr. Leeanna Carlson UA PROTEIN Negative Normal NEGATIVE/ TRACE [facility] Comment on above: Performed By: #### U A #### [facility] [address] [place], [place] [address] Dr. Leeanna Carlson Urobilinogen Qn (U) 0.2 {Marito'U}/dL Normal 0.2 - 1. 0 [facility] Comment on above: Performed By: #### U A #### [facility] [address] [place], [place] [address] Dr. Leeanna Carlson US KIDNEYSon 06-14-2022 US [...] by: ARTHUR ONTIVEROS Date: 2022-06-14 14:27 Normal [facility] XR KUB 1 VIEWon 06-14-2022 XR KUB [...] GIOVANNY ZAYAS Date: 2022-06-14 13:33 Normal [facility] Creatinine (Bld) [Mass/Vol]O rdered By: Dave Solorio on 04-27-2022 Creatinine [Mass/Vol] 1.2 mg/dL 0.6-1.3 [facility] Comment on above: ER/ESD physician is notified/shown all ISTAT results.Critical values may be confirmed by laboratory testing ifdeemed necessary by ER attending doctor. No Panel InformationOrdered By: Dave Solorio on 04-27-2022 POC Estimated GFR > 60 [facility] Comment on above: GFR estimated refere nce range: According to KDOQI guidelines, <60 ml/min/1.73m2 is sufficient to diagnose a patient with chronic kidney disease. POC Estimated GFR Non- Amer > 60 [facility] XR KUB 1 VIEWon 04-19-2022 [...] GIOVANNY ZAYAS Date: 2022-04-19 16:59 Normal [facility] XR KUB 1 VIEWon 10-06-2021 XR [...] JOHANNA MARIE Date: 2021-10-06 16:08 Normal [facility] CBC AUTO DIFFon 09-28-2021 BASO # 0.0 103/ul Normal 0.0-0.1 [facility] Comment on above: Performed By: #### C BC ####[facility] [address] [place] [address]Dr. Leeanna Carlson Basophils/100 WBC (Bld) 0.8 % Normal 0.2-2.0 [facility] Comment on above: Performed By: #### C BC ####[facility] [address] [place], [place] [address]Dr. Leeanna Carlson EO # 0.1 103/ul Normal 0.0-0.7 [facility] Comment on above: Performed By: #### C BC ####[facility] [address] [place], [place] [address]Dr. Leeanna Carlson Eosinophils/100 WBC (Bld) 2.0 % Normal 0.9-7.0 [facility] Comment on above: Performed By: #### C BC ####[facility] X[address] [place], [place] [address]Dr. Leeanna Carlson Erythrocyte distribution width (RBC) [Ratio] 13.2 % Normal 11.0-15.0 [facility] Comment on above: Performed By: #### C BC ####[facility] [address] [place], [place] [address]Dr. Leeanna Carlson Hematocrit (Bld) [Volume fraction] 47.8 % Normal 42.0-54.0 [facility] Comment on above: Performed By: #### C BC ####[facility] [address] [place], [place] [address]Dr. Leeanna Carlson Hemoglobin (Bld) [Mass/Vol] 15.8 g/dL Normal 14.0-18.0 [facility] Comment on above: Performed By: #### C BC ####[facility] [address] [place], [place] [address]Dr. Leeanna Carlson IG # 0.01 10e3/ul Normal 0.00-0.03 [facility] Comment on above: Performed By: #### C BC ####[facility] Ofvbz[address]ak[address] [place], [place] [address]Dr. Leeanna Carlson IG % 0.2 % Normal 0.0-0.5 [facility] Comment on above: Performed By: #### C BC ####[facility] [address] [place] [address]DrCassidy Carlson LYMPH # 1.4 103/ul Normal 1.2-3.8 [facility] Comment on above: Performed By: #### C BC ####[facility] [address] [place] [address]Dr. Leeanna Carlson Lymphocytes/100 WBC (Bld) 29.1 % Normal 20.5-60.0 [facility] Comment on above: Performed By: #### C BC ####[facility] [address] [place], [place] [address]DrCassidy Carlson MANUAL DIFF REQ NO Normal [place] Comment on above: Performed By: #### C BC ####[facility] [address] [place] [address]DrCassidy Carlson MCH (RBC) [Entitic mass] 28.4 pg Normal 25.9-34.0 [facility] Comment on above: Performed By: #### C BC ####[facility] [address] [place], [place] [address]DrCassidy Carlson MCHC (RBC) [Mass/Vol] 33.1 g/dL Normal 29.9-35.2 [facility] Comment on above: Performed By: #### C BC ####[facility] [address] [place], [place] [address]DrCassidy Carlson MCV (RBC) [Entitic vol] 86.0 fL Normal 80.0-94.0 [facility] Comment on above: Performed By: #### C BC ####[facility] [address] [place], [place] [address]DrCassidy Carlson MONO # 0.5 103/ul Normal 0.3-0.8 [facility] Comment on above: Performed By: #### C BC ####[facility] [address] [place], [place] [address]DrCassidy Carlson Monocytes/100 WBC (Bld) 9.9 % Normal 1.7-12.0 [facility] Comment on above: Performed By: #### C BC ####[facility] [address] [place] [address]Dr. Leeanna Carlson NEUT # 2.9 103/ul Normal 1.4-6.5 [facility] Comment on above: Performed By: #### C BC ####[facility] [address] [place] [address]DrCassdiy Carlson Neutrophils/100 WBC (Bld) 58.0 % Normal 43.0-75.0 [facility] Comment on above: Performed By: #### C BC ####[facility] [address] [place], [place] [address]DrCassidy Carlson Platelet mean volume (Bld) [Entitic vol] 10.3 fL Normal 9.5-13.5 [facility] Comment on above: Performed By: #### C BC ####[facility] [address] [place], [place] [address]Dr. Leeanna Carlson PLT 187 103/ul Normal 150-450 [facility] Comment on above: Performed By: #### C BC ####[facility] [address] [place], [place] [address]Dr. Leeanna Carlson RBC 5.56 106/ul Normal 4.70-6.10 [facility] Comment on above: Performed By: #### C BC ####[facility] [address] [place], [place] [address]DrCassidy Carlson WBC 4.9 103/ul Normal 4.0-11.0 [facility] Comment on above: Performed By: #### C BC ####[facility] [address] [place], [place] [address]DrCassidy Carlson PROF CHEM 8 (BAS METB)on Anion gap [Moles/Vol] 8.9 mmol/L Normal [facility] Comment on above: Performed By: #### B MP ####[facility] [address] [place], [place] [address]DrCassidy Carlson Calcium [Mass/Vol] 9.1 mg/dL Normal 8.5-10.1 [facility] Comment on above: Performed By: #### B MP ####[facility] [address] [place] [address]Dr. Leeanna Carlson Chloride [Moles/Vol] 105 mmol/L Normal 98-107 [facility] Comment on above: Performed By: #### B MP ####[facility] [address] [place] [address]Dr. Leeanna Carlson CO2 [Moles/Vol] 27.8 mmol/L Normal 21.0-32.0 [facility] Comment on above: Performed By: #### B MP ####[facility] [address] [place], [place] [address]Dr. Leeanna Carlson Creatinine [Mass/Vol] 1.18 mg/dL Normal 0.70-1.30 [facility] Comment on above: Performed By: #### B MP ####[facility] [address] [place], [place] [address]Dr. Leeanna Carlson EGFR-AF ALGERIAN >60 Normal >=60 [facility] Comment on above: Performed By: #### B MP ####[facility] [address] [place], [place] [address]Dr. Leeanna Aldo EGFR-NON AF ALGERIAN >60 Normal >=60 [facility] Comment on above: Performed By: #### B MP ####[facility] [address] [place] [address]Dr. Leeanna Aldo Glucose [Mass/Vol] 110 mg/dL Critically high 74-106 [facility] Comment on above: Performed By: #### B MP ####[facility] [address] [place], [place] [address]Dr. Tammieami Carlson Potassium [Moles/Vol] 4.7 mmol/L Normal 3.5-5.1 [facility] Comment on above: Performed By: #### B MP ####[facility] [address] [place] [address]Dr. Tammieami Aldo Sodium [Moles/Vol] 137 mmol/L Normal 136-145 [facility] Comment on above: Performed By: #### B MP ####[facility] [address] [place] [id number]. Leeanna Carlson Urea nitrogen [Mass/Vol] 22.0 mg/dL Critically high 7.0-18.0 [facility] Comment on above: Performed By: #### B MP ####[facility] [address] [place] [id number]. Leeanna Carlson Urea nitrogen/Creatinine [Mass ratio] 18.6 mg/mg Normal [facility] Comment on above: Performed By: #### B MP ####[facility] [address] [place] [id number]. Leeanna Carlson PROTIMEon 09-28-2021 INR Coag (PPP) [Relative time] 0.98 {INR} Normal [facility] Comment on above: Performed By: #### P TT, PT #### [facility] [address] [address] [address] Leeanna Carlson INR GUIDELINES SEE BELOW Normal [facility] Comment on above: Result Comment: AIRAM RED INR: 2.0 - 3.0 CONDITIONS NOT LISTED BELOW 2.5 - 3.5 FOR PROSTHETIC HEART VALVE REPLACEMENT 2.5 - 3.5 RECURRENT THROMBOSIS Performed By: #### P TT, PT #### [facility] [address] [address] [address] Leeanna Carlson PT Coag (PPP) [Time] 10.6 s Normal 9.0-11.6 [facility] Comment on above: Performed By: #### P TT, PT #### [facility] [address] [address] [address] Leeanna Carlson PTTon 09-28-2021 aPTT Coag (Bld) [Time] 29.3 s Normal 22.3-36.2 [facility] Comment on above: Performed By: #### P TT, PT #### [facility] [address] [address] [address] Leeanna Carlson Comprehensive Metabolic Pane puneet 06-03-2021 Albumin [Mass/Vol] 4.6 g/dL Normal 3.6-5.[address] [facility] Comment on above: Performed By: #### V ITD, LIPD, CMP #### [facility] [address], [place] [id number] Albumin/Globulin [Mass ratio] 1.9 {ratio} Normal 1.0-2.5 [facility] Comment on above: Performed By: #### V ITD, LIPD, CMP #### [facility] [address], [place] [id number] ALP [Catalytic activity/Vol] 85 U/L Normal 40-129 [facility] Comment on above: Performed By: #### V ITD, LIPD, CMP #### [facility] [address], [place] [id number] ALT [Catalytic activity/Vol] 28 U/L Normal 9-46 [facility] Comment on above: Result Comment: 03/02 Female reference range changed. Performed By: #### V ITD, LIPD, CMP #### [facility] [address], [place] [id number] Anion gap [Moles/Vol] 18 mmol/L Normal 12-20 [facility] Comment on above: Result Comment: Effe ctive 04/07/2019 reference range changed. Performed By: #### V ITD, LIPD, CMP #### [facility] [address], [place] [id number] AST [Catalytic activity/Vol] 25 U/L Normal 10-40 [facility] Comment on above: Performed By: #### V ITD, LIPD, CMP #### [facility] [address], [place] [id number] Bilirubin [Mass/Vol] 0.65 mg/dL Normal 0.30-1.20 [facility] Comment on above: Performed By: #### V ITD, LIPD, CMP #### [facility] [address], [place] [id number] BUN/CREA 24 Ratio High 6-22 [facility] Comment on above: Performed By: #### V ITD, LIPD, CMP #### [facility] [address], [place] [id number] Calcium [Mass/Vol] 9.4 mg/dL Normal 8.6-10.2 [facility] [employer] [place] [employer] Comment on above: Performed By: #### V ITD, LIPD, CMP #### [facility] [address], [place] [id number] Chloride [Moles/Vol] 105 mmol/L Normal 98-107 [facility] Comment on above: Performed By: #### V ITD, LIPD, CMP #### [facility] [address], [place] [id number] CO2 [Moles/Vol] 23 mmol/L Normal 20-31 [facility] Comment on above: Performed By: #### V ITD, LIPD, CMP #### [facility] [address], [place] [id number] Creatinine [Mass/Vol] 1.1 mg/dL Normal 0.7-1.4 [facility] Comment on above: Performed By: #### V ITD, LIPD, CMP #### [facility] [address], [place] [id number] eGFRAA 86 mL/min/1.73m2 Normal >60 [facility] Comment on above: Performed By: #### V ITD, LIPD, CMP #### [facility] [address], [place] [id number] eGFRNAA 71 mL/min/1.73m2 Normal >60 [facility] Comment on above: Performed By: #### V ITD, LIPD, CMP #### [facility] [address], [place] [id number] Globulin (S) [Mass/Vol] 2.4 g/dL Normal 1.9-3.7 [facility] Comment on above: Performed By: #### V ITD, LIPD, CMP #### [facility] [address], [place] [id number] Glucose [Mass/Vol] 97 mg/dL Normal 65-99 [facility] [employer] [place] [employer] Comment on above: Result Comment: For FASTING Glucose --- ADA reference ranges: Normal 65-99 mg/dl Prediabetes 100-125 Diabetes >/= 126 Performed By: #### V ITD, LIPD, CMP #### [facility] [address], [place] [id number] Potassium [Moles/Vol] 4.5 mmol/L Normal 3.5-5.5 [facility] Comment on above: Performed By: #### V ITD, LIPD, CMP #### [facility] [address] [facility] [place] [place] [id number] Protein [Mass/Vol] 7.0 g/dL Normal 6.1-8.1 [facility] [employer] Comment on above: Performed By: #### V ITD, LIPD, CMP #### [facility] [address], [place] [id number] Sodium [Moles/Vol] 141 mmol/L Normal 135-146 [facility] [employer] Comment on above: Performed By: #### V ITD, LIPD, CMP #### [facility] [address], [place] [id number] Urea nitrogen [Mass/Vol] 26 mg/dL High 7-25 [facility] [employer] Comment on above: Performed By: #### V ITD, LIPD, CMP #### [facility] [address], [place] [id number] Hemoglobin A1Con 06-03-2021 EAG 125.50 Normal [facility] Comment on above: Performed By: #### A 1C #### [facility] [address], [place] [id number] HbA1c (Bld) [Mass fraction] 6.0 % Normal 4.0-6.0 [facility] Comment on above: Performed By: #### A 1C #### [facility] [address], [place] [id number] Lipid Panelon 06-03-2021 Cholesterol [Mass/Vol] 232 mg/dL High 125-200 No [facility] Comment on above: Result Comment: Low risk < 200mg/dL Borderline risk 201-239 mg/dl High risk > or equal to 240 Performed By: #### V ITD, LIPD, CMP #### [facility] [address], [place] [id number] Cholesterol in HDL [Mass/Vol] 68 mg/dL Normal >40 [facility] [employer] Comment on above: Result Comment: High Cardiovascular Risk HDL <40 mg/dL Low Cardiovascular Risk HDL > or equal to 60 mg/dl Performed By: #### V ITD, LIPD, CMP #### [facility] [address], [place] [id number] Cholesterol in LDL [Mass/Vol] 153 mg/dL Normal [facility] Comment on above: Result Comment: LDL ATP III CLASSIFICATION LDL less than 100 mg/dl Optimal LDL 100-129 mg/dl Near or above optimal LDL 130-159 Borderline high LDL 160-189 High LDL greater than 189 mg/dl Very High Performed By: #### V ITD, LIPD, CMP #### [facility] [address], [place] [id number] Cholesterol in VLDL [Mass/Vol] 11 mg/dL Normal [facility] Comment on above: Performed By: #### V ITD, LIPD, CMP #### [facility] [address], [place] [id number] Cholesterol.total/Chol esterol in HDL [Mass ratio] 3 {ratio} Normal [facility] Comment on above: Performed By: #### V ITD, LIPD, CMP #### [facility] [address], [place] [id number] Triglyceride [Mass/Vol] 55 mg/dL Normal 30-150 [facility] Comment on above: Result Comment: TRIG ATPIII CLASSIFICATIONS TRIG less than 150 mg/dl Normal TRIG 150-199 mg/dl Borderline High TRIG 200-500 mg/dl High TRIG greather than 500 mg/dl Very High Performed By: #### V ITD, LIPD, CMP #### [facility] [address], [place] [id number] Prostatic Specific Antigen, Totalon 06-03-2021 TPSA 5.030 ng/mL High <4.000 [facility] Comment on above: Result Comment: PSA Test Method: ECLIA/Maira e 601 Performed By: #### P SA #### [facility] [address], [place] [id number] Vitamin D 25-OHon 06-03-2021 VIT D 25 OH 57 ng/ml Normal >29 [facility] [employer] Comment on above: Result Comment: Amanda min D Status Deficiency <20 ng/mL Insufficiency 20-29 ng/mL Optimal 30-100 ng/mL Possible Toxicity >=150 ng/mL Performed By: #### V CORINE, LAINE, CMP #### [facility] [address] [facility] [place] [place] [id number] MRI PROSTATE WO/W IVCONon MRI PROSTATE WO/W [...] prostate and pelvis performed on a 3T (Pidgon) scanner utilizing phase pelvic coil. Sequences obtained: Multiplanar T2-WI with small ybguw-yx-gqrr; Axial diffusion weighted images with multiple B-values and creation of ADC-maps; Dynamic contrast enhanced T1-weighted images through the prostate were also obtained before, during and after the administration of intravenous gadolinium. Prostate dimensions and volume were obtained using a semi-automated software ([employer]). CONTRAST: IV: 17 cc of (Dotarem). RESULT: [...] Clinically significant cancer is highly likely (V.05.2018) Production Bow Maker: PSCB Transcribe Date/Time: Mar 10 2019 1:33P Dictated by : DVAE JONES MD This examination was interpreted and the report reviewed and electronically signed by: DAVE JONES MD on Mar 10 2019 2:15PM EST [id number] Normal [facility] PROGRESSon 03-10-2019 PROGRESS HNO ID: [id number] Author: Hallie Manning) QUIN Saavedra Service: Radiology [...] March 10, 2019 TIME: 12:15 PM Normal [facility] PROGRESS HNO ID: [id number] Author: Rosina Ferrari (Tech) Service: Radiology Author Type: Cable Mechanic Type: Progress Notes Filed: 03/10/2019 12:54 PM [...] Ferrari March 10, 2019 12:54 PM Normal [facility] Vital Signs Date Time Vital Sign Value Performing Clinician Jesse cooper 01-07-2024 11:24-0400 Blood Pressure Location Sharla MONTIEL [facility] 01-07-2024 11:24-0400 Diastolic blood pressure 78 mm[Hg] Sharla MONTIEL [facility] 01-07-2024 11:24-0400 Heart rate 62 /min Sharla MONTIEL [facility] 01-07-2024 11:24-0400 Systolic blood pressure 136 mm[Hg] Sharla MONTIEL [facility] 07-02-2023 09:42-0400 Blood Pressure Location Sharla MONTIEL [facility] 07-02-2023 09:42-0400 Body temperature 98.6 [degF] Sharla MONTIEL [facility] 07-02-2023 09:42-0400 Diastolic blood pressure 84 mm[Hg] Sharla MONTIEL [facility] 07-02-2023 09:42-0400 Heart rate 75 /min Sharla MONTIEL [facility] 07-02-2023 09:42-0400 Respiratory rate 17 /min Sharla MONTIEL [facility] 07-02-2023 09:42-0400 Systolic blood pressure 137 mm[Hg] Sharla MONTIEL [facility] 05-23-2023 13:45-0500 Body height 177.8 cm Jeana Parra DO Work Phone: [facility] [employer] [facility] 05-23-2023 13:45-0500 Body mass index (BMI) [Ratio] 28.5 kg/m2 Jeana Parra DO Work Phone: [facility] [employer] [facility] 05-23-2023 13:45-0500 Body weight 90.08 kg Jeana Parra DO Work Phone: [facility] [employer] [facility] 05-23-2023 13:45-0500 Diastolic blood pressure 85 mm[Hg] Jeana Parra DO Work Phone: [facility] [employer] 05-23-2023 13:45-0500 Heart rate 63 /min Jeana Parra DO Work Phone: [facility] [employer] [facility] 05-23-2023 13:45-0500 Systolic blood pressure 134 mm[Hg] Jeana Parra DO Work Phone: [facility] [employer] [facility] 04-24-2023 13:03-0500 Body mass index (BMI) [Ratio] 29.1 kg/m2 Keerthi Gill MD Work Phone: [facility] [employer] [facility] 04-24-2023 13:03-0500 Body temperature 97.7 [degF] Keerthi Gill MD Work Phone: [facility] [employer] [facility] 04-24-2023 13:03-0500 Body weight 91.99 kg Keerthi Gill MD Work Phone: [facility] [employer] [facility] 04-24-2023 13:03-0500 Diastolic blood pressure 78 mm[Hg] Keerthi Gill MD Work Phone: [facility] [employer] [facility] 04-24-2023 13:03-0500 Heart rate 71 /min Keerthi Gill MD Work Phone: [facility] 04-24-2023 13:03-0500 SaO2% (BldA) [Mass fraction] 97 % Keerthi Gill MD Work Phone: [facility] 04-24-2023 13:03-0500 Systolic blood pressure 134 mm[Hg] Keerthi Gill MD Work Phone: [facility] 10-09-2022 08:31-0400 Blood Pressure Location Sharla MONTIEL [facility] 10-09-2022 08:31-0400 Diastolic blood pressure 74 mm[Hg] Sharla MONTIEL [facility] 10-09-2022 08:31-0400 Heart rate 80 /min Sharla MONTIEL [facility] 10-09-2022 08:31-0400 Respiratory rate 16 /min Sharla MONTIEL [facility] 10-09-2022 08:31-0400 Systolic blood pressure 130 mm[Hg] Sharla MONTIEL [facility] 05-01-2022 09:15-0500 Blood Pressure Location Sharla MONTIEL [facility] 05-01-2022 09:15-0500 Diastolic blood pressure 84 mm[Hg] Sharla MONTIEL [facility] 05-01-2022 09:15-0500 Heart rate 75 /min Sharla MONTIEL [facility] 05-01-2022 09:15-0500 Respiratory rate 16 /min Sharla MONTIEL [facility] 05-01-2022 09:15-0500 Systolic blood pressure 129 mm[Hg] Sharla MONTIEL [facility] 04-27-2022 07:35-0500 Body height 177.8 cm DO Monica Cori Work Phone: [facility] 04-27-2022 07:35-0500 Body weight 88.45 kg DO Monica Cori Work Phone: [facility] 04-19-2022 13:20-0500 Blood Pressure Location DONALD LEOLA [facility] 04-19-2022 13:20-0500 Diastolic blood pressure 74 mm[Hg] DONALD LEOLA [facility] 04-19-2022 13:20-0500 Heart rate 72 /min DONALD LEOLA [facility] 04-19-2022 13:20-0500 Respiratory rate 16 /min DONALD LEOLA [facility] 04-19-2022 13:20-0500 Systolic blood pressure 126 mm[Hg] DONALD LEOLA [facility] 10-28-2021 10:27-0400 Blood Pressure Location Sharla MONTIEL [facility] 10-28-2021 10:27-0400 Diastolic blood pressure 81 mm[Hg] Sharla MONTIEL [facility] 10-28-2021 10:27-0400 Heart rate 54 /min Sharla MONTIEL [facility] 10-28-2021 10:27-0400 Respiratory rate 16 /min Sharla MONTIEL [facility] 10-28-2021 10:27-0400 Systolic blood pressure 134 mm[Hg] Sharla MONTIEL [facility] 08-17-2021 10:03-0400 Blood Pressure Location Sharla MONTIEL [facility] [employer] 08-17-2021 10:03-0400 Diastolic blood pressure 87 mm[Hg] Sharla MONTIEL [facility] 08-17-2021 10:03-0400 Heart rate 58 /min Sharla MONTIEL [facility] [employer] 08-17-2021 10:03-0400 Systolic blood pressure 134 mm[Hg] Sharla MONTIEL [employer] [facility] [employer] Encounters Encounter Date Encounter Type Care Provider Facility Start: 01-09-2025 ambulatory Sharla Mci ty:[facility] Start: 03-14-2024 ambulatory MONICA PARHAM Facility:C D:[id number] Start: 03-06-2024 End: 03-06-2024 ambulatory MONICA PARHAM Facility:CD:[id number] Start: 01-07-2024 End: 01-07-2024 ambulatory Sharla MONTIEL Facility:[facility] Start: 01-07-2024 End: 01-07-2024 Patient encounter procedure Sharla MONTIEL [facility] Start: 07-31-2023 End: 07-31-2023 ambulatory [facility] Start: 07-30-2023 End: 07-30-2023 Patient encounter procedure MD Sharla Montiel Work Phone: [facility] [place] Work Phone: Start: 07-30-2023 End: 07-30-[address] [facility] Work Phone: Start: 07-02-2023 End: 07-02-2023 ambulatory Sharla MONTIEL Facility:[facility] Start: 07-02-2023 End: 07-02-2023 Patient encounter procedure Sharla MONTIEL [facility] Start: 05-23-2023 End: 05-23-2023 ambulatory JEANA PARRA [facility] Start: 05-23-2023 End: 05-23-2023 Office outpatient visit 15 minutes Jeana Parra DO Work Phone: [facility] Comment on above: Acute epididymitis ( Primary Dx); Non-recurrent unilateral inguinal hernia without obstruction or gangrene; Epididymitis Start: 04-26-2023 End: 04-27-2023 ambulatory [facility] Start: 04-24-2023 End: 04-24-2023 ambulatory [facility] Start: 04-24-2023 End: 04-24-2023 Office outpatient visit 25 minutes Keerthi Gill MD Work Phone: [facility] Comment on above: Non-recurrent unilat eral inguinal hernia without obstruction or gangrene (Primary Dx); Flank pain Start: 04-06-2023 End: 04-06-2023 ambulatory BRITT REYES Not Available Start: 04-04-2023 ambulatory Sarah Chehi COLLEGE ASSOCIATE [place] Quality - Care Coordination Team Start: 04-04-2023 Coordination [facility] plan [facility] - [facility] Coordination Team Start: 03-22-2023 End: 03-22-2023 ambulatory MIKAELA [facility] Start: 10-09-2022 End: 10-09-2022 Patient encounter procedure Sharla MONTIEL [facility] Start: 09-18-2022 End: 09-18-2022 Patient encounter procedure Sharla MONTIEL [facility] Start: 08-29-2022 End: 08-29-2022 Patient encounter procedure Sharla MONTIEL [facility] Start: 08-25-2022 End: 08-25-[address] DOCTOR HALEY Facility:H1 Start: 08-17-2022 End: 08-18-[address] DOCTOR HALEY Facility:H1 Start: 08-12-2022 Encounter for preprocedural cardiovascular examination DR SHARLA MONTIEL . [facility] Start: 08-12-2022 Encounter for preprocedural laboratory examination DR SHARLA MONTIEL . [facility] Start: 08-09-2022 End: 08-10-[address] SHARLA MONTIEL . Facility:H1 Start: 08-09-2022 End: 08-10-2022 Encounter for preprocedural cardiovascular examination DR SHARLA MONTIEL . Facility:H1 Start: 07-28-2022 End: 07-28-[address] DOCTOR HALEY Facility:[facility]1 Start: 06-14-2022 End: 06-15-[address] GIOVANNY ZAYAS Facility:[facility]1 Start: 06-14-2022 End: 06-14-2022 Patient encounter procedure DONALD BHAGAT [facility] Start: 05-01-2022 End: 05-01-2022 Patient encounter procedure Sharla MONTIEL [facility] Start: 04-27-2022 End: 04-27-2022 ambulatory DO Monica G Cori Work Phone: [facility] Work Phone: Start: 04-27-2022 End: 04-27-2022 Patient encounter procedure DO Monica Cori Work Phone: [facility] [place] Work Phone: Start: 04-19-2022 End: 04-20-[address] GIOVANNY ZAYAS Facility:[facility]1 Start: 04-19-2022 End: 04-19-2022 Patient encounter procedure DONALD BHAGAT [facility] Start: 10-28-2021 End: 10-28-2021 Lab Drop off Sharla MONTIEL [facility] Start: 10-28-2021 End: 10-28-2021 Patient encounter procedure Sharla MONTIEL [facility] Start: 10-06-2021 End: 10-06-[address] SHARLA MONTIEL . Facility:H1 Start: 09-28-2021 End: 09-29-[address] SHARLA MONTIEL . Facility:[facility]1 Start: 08-17-2021 End: 08-17-2021 Patient encounter procedure Sharla MONTIEL [facility] Procedures Date Procedure Procedure Detail Performing Clinician Start: 07-30-2023 MR prostate wo/w vianney Montiel Work Phone: Start: 03-22-2023 Adult depression scr eening assessment Sarah Stone COLLEGE ASSOCIATE Start: 11-27-2022 Colonoscopy Sarah ventura COLLEGE ASSOCIATE Start: 08-29-2022 Cystoscopic removal of ureteric stent Sharla MONTIEL Start: 08-17-2022 Transurethral prostatectomy Sharla MONTIEL Start: 04-27-2022 MRI of head DO Monica K heatherfe Work Phone: Start: 03-12-2020 Cystoscopy Sharla FERRELL Start: 08-31-2016 Transurethral prostatectomy Sharla MONTIEL Start: 07-04-2016 Cystoscopy Sharla FERRELL Start: 09-30-2014 Cystoscopy Sharla FERRELL Start: 04-21-2010 Transurethral prostatectomy Sharla MONTIEL Start: 02-04-2010 Urodynamic studies Yoni kelli MONTIEL Start: 07-31-2008 Transrectal biopsy o f prostate using ultrasound guidance Sharla MONTIEL Start: 07-31-2005 Cystoscopy Sharla FERRELL Appendectomy Sharla MONTIEL Tonsillectomy Sharla MONTIEL Plan of Treatment Date Care Activity Detail Author Start: 11-27-2032 Screening for malign ant neoplasm of colon Colonoscopy [facility] Start: 06-27-2024 DTaP,Tdap and Td Vac cines (2 - Td or Tdap) DTaP,Tdap and Td Vaccines (2 - Td or Tdap) [facility] Start: 05-23-2024 Adult BMI Screening Adult BMI Screen ing [facility] Start: 05-23-2024 Tobacco Screening Tobacco Screening [facility] Start: 04-24-2024 Adult BMI Screening Adult BMI Screen ing [facility] Start: 04-24-2024 Tobacco Screening Tobacco Screening [facility] Start: 04-04-2024 Fall Risk Screening Fall Risk Screen ing [facility] Start: 03-22-2024 Adult BMI Screening Adult BMI Screen ing [facility] Start: 03-22-2024 Depression Screening Depression Scre ening [facility] Start: 03-22-2024 Fall Risk Screening Fall Risk Screen ing [facility] Start: 03-22-2024 Tobacco Screening Tobacco Screening [facility] Start: 09-25-2023 End: 09-25-2023 Patient encounter procedure 09/25/2023 10:15 AM EDT Office Visit [facility] [address] [place] [address] [phone] Keerthi Gill MD [address] [place], [place] [id number] [facility] Start: 05-02-2023 End: 05-02-2023 Patient encounter procedure 05/02/2023 9:15 AM EST Office Visit [facility] General Surgery [address] [place] [address] [phone] Jeana Parra DO [address] [place], [place] [id number] [facility] General Surgery Start: 04-26-2023 End: 04-26-2023 Patient encounter procedure [facility] Start: 04-24-2023 End: 04-24-2024 US Retroperitoneum Ultrasound retroperitoneal complete Imaging Routine Flank pain Expected: 04/24/2023, Expires: 04/24/2024 [facility] Comment on above: Expected: 04/24/2023 , Expires: 04/24/2024 Start: 04-24-2023 End: 04-24-2024 US Scrotum and testicle Ultrasound scrotum Imaging Routine Non-recurrent unilateral inguinal hernia without obstruction or gangrene Expected: 04/24/2023, Expires: 04/24/2024 [facility] Work Phone: Comment on above: Expected: 04/24/2023 , Expires: 04/24/2024 Start: 12-01-2022 COVID-19 Vaccine ( season) COVID-[facility] ( [facility]) [facility] Start: 12-01-2022 Influenza vaccination Influenza Vacc ine [facility] Start: 09-23-2007 Administration of varicella zoster vaccine Zoster (Shingles) Vaccine (1 of 2) [facility] Start: 09-23-1975 Adult BMI Follow Up Plan Adult BMI F ollow Up Plan [facility] Start: 1955 Medicare Annual Well ness Visit Medicare Annual Wellness Visit [facility] Immunizations Immunization Date Immunization Notes Care Provider Brittnee agustin 03-03-2022 SARS-CoV-2 (COVID-19 ) [id number] Sharla MONTIEL [facility] 08-20-2021 SARS-CoV-2 (COVID-19 ) mRNA-1273 vaccine Sharla MONTIEL [facility] 03-02-2021 SARS-CoV-2 (COVID-19 ) mRNA-1273 vaccine Sharla MONTIEL [facility] 02-20-2021 SARS-CoV-2 (COVID-19 ) mRNA-1273 vaccine Sharla MONTIEL [facility] 01-23-2021 SARS-CoV-2 (COVID-19 ) mRNA-1273 vaccine Sharla MONTIEL [facility] 06-27-2014 tetanus toxoid, redu juventino diphtheria toxoid, and acellular pertussis vaccine, adsorbed Sharla MONTIEL [facility] Payers Date Payer Category Payer Self-pay [id number] 2023 Medicare [id number] 2014 Unknown [place]UST [id number] 2014-Present [phone] [place] [address] [id number] 1959 Unknown [id number] 1957 Unknown [id number] 2.16.840.1.808176.3.579.2.593 1957 Unknown [id number] 2.16.840.1.200103.3.579.2.593 1957 Unknown [id number] 2.16.840.1.627156.3.579.2.593 1957 Unknown [id number] 2.16.840.1.656010.3.579.2.593 1957 Unknown [id number] 2.16.840.1.716154.3.579.2.593 1957 Unknown [id number] 2.16.840.1.613215.3.579.2.593 1957 Unknown [id number] 2.16.840.1.099835.3.579.2.593 1957 Unknown [id number] 2.16.840.1.614398.3.579.2.593 1957 Unknown [id number] 2.16.840.1.463315.3.579.2.125 9 1957 Unknown [id number] 2.16.840.1.202486.3.579.2.128 6 1957 Unknown [id number] 2.16.840.1.753297.3.579.2.128 6 1957 Unknown [id number] 2.16.840.1.719005.3.579.2.128 6 1957 Unknown [id number] 2.16.840.1.482020.3.579.2.128 6 1957 Unknown [id number] 2.16.840.1.014101.3.579.2.128 6 1957 Unknown [id number] 2.16.840.1.502053.3.579.2.128 6 1957 Unknown [id number] 2.16.840.1.650380.3.579.2.727 1957 Unknown [id number] 2.16.840.1.433454.3.579.2.727 1957 Unknown [id number] 2.16.840.1.327011.3.579.2.727 1957 Unknown [id number] 2.16.840.1.976598.3.579.2.727 Medicare Medicare-OP No Part B [id number] Unknown [id number] 2.16.840.1.000790.3.579.2.531 Social History Date Type Detail Facility Start: 08-17-2021 End: 01-07-2024 Tobacco smoking status Never smoked tobacco (finding) [facility] Start: 04-19-2022 Tobacco smoking status Never [facility] Start: 04-23-2020 End: 03-22-2023 Sex Assigned At Male [facility] Start: 1955 Sex Assigned At Male [facility] Start: 07-17-2022 Tobacco use and exposure Smokeless tobacco non-user [facility] Start: 03-22-2023 End: 05-23-2023 Alcohol intake Lifetime non-drinker (finding) [facility] Start: 04-23-2020 End: 03-22-2023 History of Social function [facility] Start: 1955 Sex Assigned At Not on file [facility] Functional Status Date Assessment Result Facility 01-07-2024 Functional Status N/A [facility] 07-02-2023 Functional Status N/A [facility] 10-09-2022 Functional Status N/A [facility] 05-01-2022 Functional Status N/A [facility] 04-19-2022 Functional Status N/A [facility] 10-28-2021 Functional Status N/A [facility] Clinical Notes 08-16-2021 to 01-07-2024 Jeana [...] treatment? Where to find more information The [place] [employer]: www.cancer.org [place] [employer] Association: www.auanet.org Contact a health care [...] provider. Document Revised: 09/12/2021 Document Reviewed: 09/12/2021 [employer] Patient Education 2023 Perfect Escapes. Follow Up Care 07/02/2023 10:58:48 With:SOFIYA MAGANA, Sharla Layton, URL Address: [facility] [address], [place] [address] [phone] When: Unknown Comments:1 yr w/ PSA [facility] [place] 01-07-2024 Note Patient Education Oncology Prostate [...] Where to find more information ? The [place] [employer]: www.cancer.org ? [place] [employer] Association: www.auanet.org Contact a health care [...] of the rectum. (more content not included)... [facility] 07-02-2023 Hospital Discharge instructions Patient Education [...] treatment? Where to find more information The [place] [employer]: www.cancer.org [place] [employer] Association: www.auanet.org Contact a health care [...] provider. Document Revised: 09/12/2021 Document Reviewed: 09/12/2021 [employer] Patient Education 2022 Perfect Escapes. Follow Up Care 01/08/2023 10:36:36 With:SOFIYA MAGANA, Sharla Layton, URL Address: [facility] [address] [place] [address]- [phone] When: Unknown Comments:6 mos w/ PSA [facility] 05-23-2023 History of Present illness Narrative Images from the original note were not included. [facility] [address] [facility] [phone] CONSULT NOTE Omer Pena 67 y.o. CHIEF [...] and does not rest. 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 He is very [...] 11/27/2022 Performed by Jeana Parra DO at [facility] COLONOSCOPY N/A 01/07/2018 Performed by Jeana Parra DO at [facility] FINGER SURGERY Left LEFT THUMB TONSILLECTOMY [...] patient/family/caregiver Referring and communicating with other health youth career specialist No primary diagnosis found. Jeana Parra DO This note was created with the assistance of a speech recognition program. While intending to generate a timely document that accurately reflects the content of the visit, no guarantee can be provided that every grammatical or spelling mistake has been or will be identified or corrected. Thank you for your understanding. documented in this encounter [facility] 04-24-2023 History of Present illness Narrative Images from the original note were not included. [address] [place] [phone] Patient: Zander Ponce Date of : 1955 [...] or gangrene - Ultrasound scrotum; Future - [facility] General [facility] - [facility] [place], [place]; Future 67-year-old gentleman who has recently had a colonoscopy completed by Dr. Potts. Will refer to Dr. Parra consideration for surgical intervention. KEERTHI GILL MD Family Medicine Physician [facility] Family Medicine / [facility] 04/24/23 This note was completed with voice recognition software. The document was reviewed for errors however some may still be present. Please do not hesitate to contact/[facility] the author to verify any questions/concerns. documented in this encounter [facility] 04-04-2023 History of Present illness Narrative Date of Call: April 04, 2023 Date of Positive Fall Risk Screenin03/22/2023 PT Referral Placed by PCP: No Result of Call: Answered Patient consent to enroll in Program: No Status of PT Referral: Patient declined Goals: Resources Provided: Additional Comments: Patient completed fall risk screening but declines program participation. documented [facility] this encounter [facility] Hospital Discharge instructions Patient Education 10/09/2022 [...] Follow these instructions at home: Medicines Take youy-nre-fhccbpq and prescription medicines only as told by [...] or the blood stops without treatment. Take beie-xro-mnyyycc and prescription medicines only as told by your health care provider. Drink enough fluid to keep your urine pale yellow. This information is not intended to replace advice given to you by your health care provider. Make sure you discuss any questions you have with your health care provider. Document Revised: 11/17/2020 Document Reviewed: 11/17/2020 [employer] Patient Education 2022 Perfect Escapes. Follow Up Care 10/02/2022 10:55:28 With:SOFIYA MAGANA, Sharla Layton, URL Address: [facility] [address] [place] [address] [phone] When:Within 3 Month(s) [facility] [place] 08-29-2022 Hospital Discharge instructions Patient Education [...] including vitamins, herbs, eye drops, creams, and nzic-bft-iplmyvj medicines. Any problems you or family members [...] provider tells you to take them. Taking jtqh-wmp-mfsvspx medicines, vitamins, herbs, and supplements. Surgery safety [...] provider. Document Revised: 12/13/2021 Document Reviewed: 12/13/2021 [employer] Patient Education 2022 Perfect Escapes. Follow Up Care 08/24/2022 09:38:00 With:SOFIYA MAGANA, Sharla Layton, URL Address: [facility] [address] , [place] [address]- Business (1) When: Unknown [facility] 05-01-2022 Hospital Discharge instructions Patient Education 05/01/2022 [...] include: ?Spinach. ?Rhubarb. ?Beets. ?Potato chips and maltese fries. ?Nuts. If you regularly take a diuretic medicine, make sure to eat at least 1 2 fruits or vegetables high in potassium each day. These include: ?Avocado. ?Banana. ?Amity, prune, carrot, or tomato juice. ?Baked potato. [...] Casseroles. Pizza. Lasagna. Frozen meals. Potato chips. Gabonese fries. Summary You can reduce your risk [...] 07/14/2011 Document Revised: 07/09/2019 Document Reviewed: 02/27/2017 [employer] Patient Education 2019 Perfect Escapes. Follow Up Care 10/28/2021 11:17:16 With:SOFIYA MAGANA, Sharla Layton, URL Address: [facility] [address], [place] [address]- When: Unknown [facility] 04-19-2022 Hospital Discharge instructions Patient Education 04/19/2022 13:43:01 Kidney Stones, Zamw-os-Jhtg Kidney Stones Kidney stones are rock-like masses [...] Follow these instructions at home: Medicines Take wntm-qdp-ojiqakf and prescription medicines only as told by [...] 09/04/2008 Document Revised: 08/05/2019 Document Reviewed: 08/05/2019 [employer] Patient Education 2019 Perfect Escapes. Follow Up Care 04/17/2022 09:12:19 With:SOFIYA MAGANA, Sharla Layton, URL Address: [address] [place] [address]- When: Unknown [facility] 10-28-2021 Hospital Discharge instructions Patient Education [...] one of these risk factors: ?Being of -[place]cu[place] descent. ?Having a family history of prostate [...] you: Are older than age 55. Are -Ecu[place]orean. Have a father, brother, or uncle who [...] 12/28/2017 Document Revised: 03/01/2018 Document Reviewed: 12/28/2017 [employer] Patient Education 2020 Perfect Escapes. Follow Up Care 08/17/2021 11:01:21 With:SOFIYA MAGANA, Sharla Layton, URL Address: [facility] [address] , [place] [address]- [phone] When:Within 6 Month(s) Comments:w/ TANIA and JASON [facility] [place] 08-16-2021 Hospital Discharge instructions Patient Education [...] one of these risk factors: ?Being of -[place]orean descent. ?Having a family history of prostate [...] you: Are older than age 55. Are -Ecu[place]orean. Have a father, brother, or uncle who [...] 12/28/2017 Document Revised: 03/01/2018 Document Reviewed: 12/28/2017 [employer] Patient Education 2020 Perfect Escapes. Follow Up Care 06/27/2021 09:31:40 With:SOFIYA MAGANA, Sharla Layton, URL Address: [facility] [address] , [place] [address]- When:10/17/2021 [facility] Evaluation + Plan note Future Appointments Appointment Date:10/28/2021 09:45:00 AM Scheduled Provider:Sharla MONTIEL MD Location:[facility] Appointment Type:URO Office Visit Diagnostic Tests PendingPSA Total 08/17/21 [facility] Evaluation + Plan note Future Appointments Appointment Date:05/01/2022 09:15:00 AM Scheduled Provider:Sharla MONTIEL MD [facility] Appointment Type:URO Office Visit Diagnostic Tests PendingPSA Total 10/28/21 [facility] Evaluation + Plan note Future Appointments Appointment Date:05/01/2022 09:15:00 AM Scheduled Provider:Sharla MONTIEL MD Location:[facility] Appointment Type:URO Office Visit Diagnostic Tests PendingCalculi Analysis Urinary 10/28/21 [facility] Evaluation + Plan note Future Appointments Appointment Date:05/01/2022 09:15:00 AM Scheduled Provider:Sharla MONTIEL MD Location:[facility] Appointment Type:URO Office Visit [facility] Evaluation + Plan note Future Appointments Appointment Date:10/30/2022 10:30:00 AM Scheduled Provider:Sharla MONTIEL MD [facility] Appointment Type:URO Office Visit Diagnostic Tests PendingPSA Total 05/01/22 [facility] Evaluation + Plan note Future Appointments Appointment Date:10/30/2022 10:30:00 AM Scheduled Provider:Sharla MONTIEL MD [facility] Appointment Type:URO Office Visit [facility] Evaluation + Plan note Future Appointments Appointment Date:02/05/2023 11:30:00 AM Scheduled Provider:Sharla MONTIEL MD Location:[facility] Appointment Type:URO Office Visit [facility] Evaluation + Plan note Future Appointments Appointment Date:01/08/2023 09:30:00 AM Scheduled Provider:Sharla MONTIEL MD Location:[facility] Appointment Type:URO Office Visit [facility] Evaluation + Plan note Future Appointments Appointment Date:01/07/2024 11:15:00 AM Scheduled Provider:Sharla MONTIEL MD Location:[facility] Appointment Type:URO Office Visit Diagnostic Tests PendingPSA Total 07/02/23 [facility] Evaluation + Plan note Future Appointments Appointment Date:01/09/2025 10:45:00 AM Scheduled Provider:Sharla MONTIEL MD Location:[facility] Appointment Type:URO Office Visit Diagnostic Tests PendingPSA Total 01/07/24 [facility] Evaluation note No assessment inform ation available [facility] Work Phone: Evaluation note Diagnosis Non-recurrent [...] this section [facility] Hospital Discharge instructions No data available for this section [facility] filedocumented in this encounter [facility] filedocumented in this encounter [facility]Not on filedocumented in this encounter [facility] No data available for this section [facility] [place] reason for referral (narrative)* Consultation (Routine) - Authorized Specialty Diagnoses / Procedures Referred By Kirstin abdalla Referred To Contact General Surgery Diagnoses Non-recurrent unilateral inguinal hernia without obstruction or gangrene Keerthi Gill MD [address] [place] [address] Jeana Parra DO [address] [place] [id number] Referral ID Status Reason Start Date Expiration Date Visits Requested Visits Authorized [id number] Authorized Specialty Services Required 04/24/2023 04/23/2024 1 1 [facility] Summary Purpose Family History No [...] section and content) DATE CREATED AUTHOR 03/10/2019 [facility] DATE CREATED AUTHOR AUTHOR'S ORGANIZ ATION 06/04/2021 [facility]ical Specialist DATE CREATED AUTHOR AUTHOR'S ORGANIZ ATION 09/10/2022 [facility] DATE CREATED AUTHOR AUTHOR'S ORGANIZ ATION 04/07/2023 [facility] DATE CREATED AUTHOR AUTHOR'S ORGANIZ ATION 04/29/2023 [facility] DATE CREATED AUTHOR AUTHOR'S ORGANIZ ATION 08/01/2023 [facility] DATE CREATED AUTHOR AUTHOR'S ORGANIZ ATION 03/02/2024 [facility] DATE CREATED AUTHOR AUTHOR'S ORGANIZ ATION 03/14/2024 Behzad Cartagena [facility] Care Team (unrecognized sect ion and content) Team Status: Inactive Member Role Status Dates Krishna Solorio , Attending Provider Active Monica Parham DO Primary Care Provider Active Team Status: Active Member Role Status Dates Monica Parham , Primary Care Provider Active Children'S Ministry Director Relationship Specialty Start Date End Date Keerthi Gill MD [address], [facility] [place] [address] PCP - General Internal Medicine 03/22/23 Children'S Ministry Director Relationship Specialty Start Date End Date Keerthi Gill MD [address] [facility] [place] [address] PCP - General Internal Medicine 03/22/23 Children'S Ministry Director Relationship Specialty Start Date End Date Keerthi Gill MD [address], [facility] [place] [address] PCP - General Internal Medicine 03/22/23 Team [...] or gangrene Keerthi Gill MD [address] [place] [address] Jeana Parra DO [address] [place] [address] Referral ID Status Reason Start Date Expiration Date Visits Requested Visits Authorized [id number] Pending Review Specialty Services Required 04/24/2023 04/23/2024 [...] BE BASED ON THE PRIMARY CLINICAL RECORDS. [employer] provides no warranty or guarantee of the accuracy or completeness of information in this document.
== END 2024-03-29 13:18 | disposition home or self-care (01) ==
LOC: ER 12:44
PROVIDERS: Emergency Provider Emergency Medicine; PCP Student in an Organized Health Care Education/Training Program
DX: R42 Dizziness and giddiness (principal); E86.0 Dehydration; Z90.49 Acquired absence of other specified parts of digestive tract
CPT/HCPCS: 36415; 71046; 80053; 83880; 84484; 85025; 93005; 96360; 99285

== ENCOUNTER 2024-09-02 12:03 | Outpatient (OUT) | payer OTHER, SELFPAY ==
--- OUTSIDE RECORDS SUMMARY | 2024-09-02 12:13 | XMS_ITS | Clinical Summary ---
Author Organization Puzl tem Address [id number] [address] [place] [address] Care Team Providers Care Family Specialist Name Role Phone Mirtha Veliz MD Primary Care Provider [phone] Allergies Active Allergy Reactions Criticality Noted Date Comments Sulfa (Sulfonamide Antibiotics) Hives 09/01 Medications docosahexaenoic acid/epa (FISH OIL ORAL) Take 3 capsules by mouth in the morning. Active cholecalciferol, vitamin D3, (VITAMIN D3 ORAL) Take 1 tablet by mouth in the morning. Active POTASSIUM CITRATE ORAL Take 1 tablet by mouth in the morning and 1 tablet before bedtime. Active SKYRIZI 150 mg/mL pen injector Inject 150 mg (contents of ONE pen) under the skin every 12 weeks 5 Active tamsulosin (FLOMAX) 0.4 mg capsule Take 1 capsule (0.4 mg total) by mouth in the morning. 4 Active polyethylene glycol (GLYCOLAX) 17 gram packetIndications :Constipation, unspecified constipation type Take 17 g by mouth in the morning. 14 each 5 Active docusate sodium (COLACE) 100 mg capsuleIndication s:Constipation, unspecified constipation type Take 1 capsule (100 mg total) by mouth daily as needed for constipation. 30 capsule 1 5 Active Active Problems Problem Noted Date Diagnosed Date Pharyngitis 04/23/2024 Psoriasis vulgaris 11/08/2022 S/P TURP (status post transurethral resection of prostate) 11/08/2022 Overview (07/21/2024): Has had 3 procedures previously Vitamin D deficiency 11/08/2022 Arthritis 07/17/2022 Back pain 07/17/2022 BPH (benign prostatic hyperplasia) 07/17/2022 Degenerative disc disease, lumbar 07/17/2022 Kidney stones 07/17/2022 Overview (07/21/2024): Has had three episodes of kidney stones on right side with most recent episode March 2024. Follow with urology PONV (postoperative nausea and vomiting) 023 Other intervertebral disc displacement, lumbar r egion 09/21/2016 Encounters Date Type Department Care Team Description 07/21/2024 9:30 AM EDT Office Visit [facility] [address] [place] [phone] Vasu Kimble, Encounter for Medicare annual wellness exam (Primary Dx); Constipation, unspecified constipation type; Benign prostatic hyperplasia, unspecified whether lower urinary tract symptoms present 07/21/2024 Travel 06/03/2024 10:30 AM EST Office Visit [facility] [address] [place] [address] [place] [phone] Mirtha Veliz MD Herpes zoster without complication (Primary Dx) from Last 3 Months Immunizations Immunization Administration Dates Next Due Tdap 06/27/2014 Family History Medical History Relation Name Comments Cancer Father Congenital heart disease Father Heart disease Father enlarged heart Parkinsonism Mother Lung cancer Sister 1 Mirtha Uterine cancer Sister 2 Tracy Relation Name Status Comments Father Mother Sister 1 Mirtha Sister 2 Tracy Alive Social History Tobacco Use Types Packs/Day Years Used Date Smoking Tobacco: Never Smokeless Tobacco: Never Tobacco Cessation:Counseling Given: Not Answered Alcohol Use Standard Drinks/Week Comments Never 0 (1 standard drink = 0.6 oz pur e alcohol) PHQ-2 Answer Date Recorded Total Score 0 07/21/2024 Childcare Answer Date Recorded Childcare Unknown 09/11/2018 Employment Answer Date Recorded Employment Unknown 09/11/2018 Hunger Screening Answer Date Recorded Within the past 12 months we worried whether our food would run out before we got money to buy more. Never True 07/21/2024 Within the past 12 months th e food we bought just didn't last and we didn't have money to get more. Never True 07/21/2024 Purpose - Life Answer Date Recorded Purpose and direction in life Unknown Sex and Gender Information Value Date Recorded Sex Assigned at Not on file Legal Sex Male 11:34 AM EDT Gender Identity Not on file Sexual Orientation Not on file Last Filed Vital Signs Vital Sign Reading Time Taken Comments Blood Pressure 122/82 07/21/2024 9:28 AM EDT Pulse 56 07/21/2024 9:28 AM EDT Temperature 36.4 C (97.6 F) 07/21/2024 9:28 AM EDT Respiratory Rate 16 06/01/2024 7:00 AM EST Oxygen Saturation 99% 07/21/2024 9:28 AM EDT Inhaled Oxygen Concentration - - Weight 83.3 kg (183 lb 9.6 oz) 07/21/2024 9:28 A M EDT Height 178 cm (5' 10.08 ) 07/21/2024 9:28 AM EDT Body Mass Index 26.28 07/21/2024 9:28 AM EDT Plan of Treatment Upcoming Encounters Date Type Department Care Team (Late st Contact Info) Description 07/23/2025 11:15 AM EDT Office Visit [facility] [address] [facility] [address] [place] [address] [place] [address] Mirtha Veliz MD [address], [place] [address] Health Maintenance Due Date Last Done Comments Adult BMI Follow Up Plan 09/23/1975 Zoster (Shingles) Vaccine (1 of 2) 09/23/2007 COVID-19 Vaccine (2023-2 5 season) 2023 03/03/2022, 08/20/2021, 02/20/2021, Additional history exists DTaP,Tdap and Td Vaccines (2 - Td or Tdap) 06/27/2024 06/27/2014 Influenza Vaccine 12/01/2024 Adult BMI Screening 07/21/2025 07/21/2024 Depression Screening 07/21/2025 07/21/2024 Fall Risk Screening 07/21/2025 07/21/2024 Medicare Annual Wellness Visit 07/21/2025 07/21/2024 Tobacco Screening 07/21/2025 07/21/2024 Colonoscopy 11/27/2032 11/27/2022, 11/01, 11/27/2022, Additional history exists Medical Devices Not on file Procedures Procedure Name Priority Date/Time Associated Diagnosis Comments COLONOSCOPY 11/27/2022 12:45 PM EDT from Last 3 Months or Most Recently Relevant to Health Maintenance Results * Colonoscopy (11/27/2022 12:45 PM EDT) 11/27/2022 12:4 5 PM EDT Narrative PM CARDIOVASCULAR - 11/27/2022 1:14 PM EDT [facility] Patient Name: Zander Whitehead Procedure Date No Time: 11/27/2022 CSN : [id number] Date of : 1955 Admit Type: Outpatient Age: 67 Room: [place] [address] Gender: Male Note Status: Finalized Attending MD: Vasu Currie DO, Procedure: Colonoscopy Indications: Screening for colorectal malignant neoplasm Providers: Vasu Currie DO Referring MD: Vasu Currie DO Medicines: Propofol per Anesthesia Complications: No immediate complications. Procedure: After I obtained informed consent, the scope was passed under direct vision. Throughout the procedure, the patient's blood pressure, pulse, and oxygen saturations were monitored continuously. The OLYMPUS CF-190L # [id number] ADULT COLONOSCOPE was introduced through the anus and advanced to the cecum, identified by appendiceal orifice and ileocecal valve. The colonoscopy was performed without difficulty. The patient tolerated the procedure well. The quality of the bowel preparation was excellent. Findings: The perianal and digital rectal examinations were normal. The colon (entire examined portion) appeared normal. The exam was otherwise without abnormality on direct and retroflexion views. Estimated Blood Loss: Estimated blood loss: none. Impression: - The entire examined colon is normal. - The examination was otherwise normal on direct and retroflexion views. - No specimens collected. Recommendation: - Discharge patient to home. - Patient has a contact number available for emergencies. The signs and symptoms of potential delayed complications were discussed with the patient. Return to normal activities tomorrow. Written discharge instructions were provided to the patient. - Patient has a contact number available for emergencies. The signs and symptoms of potential delayed complications were discussed with the patient. Return to normal activities tomorrow. Written discharge instructions were provided to the patient. - High fiber diet for 2 months. - Repeat colonoscopy in 10 years for screening purposes. - Return to my office PRN. Procedure Code(s): --- Professional --- G0121, Colorectal cancer screening; colonoscopy on individual not meeting criteria for high risk Diagnosis Code(s): --- Professional --- Z12.11, Encounter for screening for malignant neoplasm of colon CPT copyright 2021 [employer]. All rights reserved. The codes documented in this report are preliminary and upon diesel technology instructor review may be revised to meet current compliance requirements. DO Vasu Serra DO 11/27/2022 1:14:03 PM Number of Addenda: 0 Note Initiated On: 11/27/2022 12:45 PM Procedure Note Vasu Currie DO - 11/27/2022 [facility] Patient Name: Zander Whitehead Procedure Date No Time: 11/27/2022 CSN : [id number] Date of : 1955 Admit Type: Outpatient Age: 67 Room: [place] [address] Gender: Male Note Status: Finalized Attending MD: Vasu Currie DO, Procedure: Colonoscopy Indications: Screening for colorectal malignant neoplasm Providers: Vasu Currie DO Referring MD: Vasu Currie DO Medicines: Propofol per Anesthesia Complications: No immediate complications. Procedure: After I obtained informed consent, the scope was passed under direct vision. Throughout theprocedure, the patient's blood pressure, pulse, and oxygen saturations were monitored continuously. TheFloq CF-190L # [id number] ADULT COLONOSCOPE was introduced through the anus and advanced to the cecum,identified by appendiceal orifice and ileocecal valve. The colonoscopy was performed without difficulty. The patient tolerated the procedure well. The qualityof the bowel preparation was excellent. Findings: The perianal and digital rectal examinations were normal. The colon (entire examined portion) appeared normal. The exam was otherwise without abnormality on direct and retroflexion views. Estimated Blood Loss: Estimated blood loss: none. Impression: - The entire examined colon is normal. - The examination was otherwise normal on directand retroflexion views. - No specimens collected. Recommendation: - Discharge patient to home. - Patient has a contact number available for emergencies. The signs and symptoms of potential delayed complications were discussed with thepatient. Return to normal activities tomorrow. Written discharge instructions were provided to thepatient. - Patient has a contact number available for emergencies. The signs and symptoms of potential delayed complications were discussed with thepatient. Return to normal activities tomorrow. Written discharge instructions were provided to thepatient. - High fiber diet for 2 months. - Repeat colonoscopy in 10 years for screening purposes. - Return to my office PRN. Procedure Code(s): --- Professional --- G0121, Colorectal cancer screening; colonoscopy on individual not meeting criteria for high risk Diagnosis Code(s): --- Professional --- Z12.11, Encounter for screening for malignant neoplasm of colon CPT copyright 2021 [employer]. All rights reserved. The codes documented in this report are preliminary and upon diesel technology instructor reviewmay be revised to meet current compliance requirements. DO Vasu Serra DO 11/27/2022 1:14:03 PM Number of Addenda: 0 Note Initiated On: 11/27/2022 12:45 PM Vasu Currie DO GI PROCEDURE ORDERABLES Fin al Result PM CARDIOVASCULAR from Last 3 Months or Most Recently Relevant to Health Maintenance Insurance MEDICARE [employer] Care Teams Family Specialist Relationship Specialty Start Date End Date Mirtha Veliz MD [address] [facility], [place] [address] PCP - General Internal Medicine 03/22/23
--- OUTSIDE RECORDS SUMMARY | 2024-09-02 12:13 | XMS_ITS | Clinical Summary ---
Author Organization [facility] Healthcare Address [address] [place] [address] Care Team Providers Care Water/Wastewater Project Manager Name Role Phone Unallocated, Noms Provider Primary Care Provi sammy Allergies Active Allergy Reactions Criticality Noted Date Comments Sulfa Antibiotics Hives 09/21/2016 Medications dutasteride (Avodart) 0.5 MG capsule Take 0.5 mg by mouth. 3 Active omega-3 acid ethyl esters (Lovaza) 1 g capsule TAKE 2 CAPSULES BY MOUTH TWICE A DAY DIRECTED 3 Active potassium citrate CR (Urocit-K-10) 10 mEq ER tablet Take 10 mEq by mouth in the morning and 10 mEq before bedtime. 3 Active hydrocortisone 2.5 % ointmentIndicatio ns:Psoriasis vulgaris (CMS/HCC) Apply topically 2 (two) times a day Apply thin layer to affected areas of the face bid prn for flares 30 g 4 Active betamethasone dipropionate 0.05 % creamIndications: Psoriasis vulgaris (CMS/HCC) Apply to affected areas, up to twice a day when flared, do not use one the face, groin, or underarms, 30 day supply 15 g 4 Active Taltz 80 MG/ML injectionIndicati ons:Psoriasis vulgaris (CMS/HCC) Inject 1 mL (80 mg) under the skin every 28 (twenty-eight) days 1 each 4 Active Skyrizi Pen 150 MG/ML solution auto-injectorIndi cations:Plaque Psoriasis Inject 150 mg (contents of ONE pen) under the skin every 12 weeks 1 mL 4 5 Active amoxicillin-clavu lanate (Augmentin) 875-125 MG tablet Take 1 tablet by mouth every 12 (twelve) hours 5 Active fluticasone (Flonase) 50 MCG/ACT nasal spray INSTILL 2 SPRAYS INTO EACH NOSTRIL EVERYDAY FOR 30 DAYS 5 Active gabapentin (Neurontin) 300 MG capsule Take by mouth 5 Active tamsulosin (Flomax) 0.4 MG 24 hr capsule Take 0.4 mg by mouth Daily 4 Active Active Problems Problem Noted Date Diagnosed Date Adjustment disorder, unspecified 11/08/2022 Anxiety about health 11/08/2022 Benign prostatic hyperplasia with lower urinary tract symptoms 11/08/2022 BPH with urinary obstruction 11/08/2022 Deviated nasal septum 11/08/2022 Difficulty in walking, not elsewhere classified 11/08/2022 Elevated PSA 11/08/2022 Flank pain 11/08/2022 Gross hematuria 11/08/2022 Hematuria 11/08/2022 History of kidney stones 11/08/2022 Impaired glucose tolerance 11/08/2022 Lumbago with sciatica, left side 11/08/2022 Foreign body in bladder 11/08/2022 Sciatica of right side 11/08/2022 Mixed hyperlipidemia 11/08/2022 Osteoarthritis of knee 11/08/2022 Unilateral primary osteoarthritis, left knee 12/2022 Other obstructive and reflux uropathy 11/08/2022 Pain in left knee 11/08/2022 Patellar tendinitis of left knee 11/08/2022 Prostatitis 11/08/2022 Psoriasis vulgaris 11/08/2022 Psoriasis 11/08/2022 S/P TURP (status post transurethral resection of prostate) 11/08/2022 Vitamin D deficiency 11/08/2022 Weak urinary stream 11/08/2022 Arthritis 07/17/2022 BPH (benign prostatic hyperplasia) 07/17/2022 Calculus of kidney 07/17/2022 Disc disease, degenerative, lumbar or lumbosacra l 07/17/2022 Back pain 07/17/2022 PONV (postoperative nausea and vomiting) 023 Other intervertebral disc displacement, lumbar r egion 09/21/2016 Encounters Date Type Department Care Team Description 06/02/2024 1:30 PM EST Office Visit [facility] [address] [place] [address] Vannesa Sebastian PA Herpes zoster without complication (Primary Dx) 06/02/2024 Travel from Last 3 Months Immunizations Immunization Administration Dates Next Due Moderna Bivalent Booster Vaccination 03/03/2022 Tdap 06/27/2014 Social History Tobacco Use Types Packs/Day Years Used Date Smoking Tobacco: Never Smokeless Tobacco: Never Tobacco Cessation:Counseling Given: Not Answered Alcohol Use Standard Drinks/Week Comments Not Currently 0 (1 standard drink = 0.6 oz pur e alcohol) PHQ-2 Answer Date Recorded Patient Health Questionnaire-2 Score 0 11/08/2022 Sex and Gender Information Value Date Recorded Sex Assigned at Male 04/06/2023 8:40 AM EST Legal Sex Male 7:37 PM EDT Gender Identity Male 04/06/2023 8:40 AM EST Sexual Orientation Straight 04/06/2023 8: 40 AM EST Last Filed Vital Signs Vital Sign Reading Time Taken Comments Blood Pressure 106/70 11/08/2022 9:42 AM EDT Pulse 58 11/08/2022 9:42 AM EDT Temperature 35.7 C (96.3 F) 11/08/2022 9:42 AM EDT Respiratory Rate 18 11/08/2022 9:42 AM EDT Oxygen Saturation 96% 11/08/2022 9:42 AM EDT Inhaled Oxygen Concentration - - Weight 90 kg (198 lb 6.4 oz) 11/08/2022 9:42 AM EDT Height 177.8 cm (5' 10 ) 11/08/2022 9:42 AM EDT Body Mass Index 28.47 11/08/2022 9:42 AM EDT Plan of Treatment Upcoming Encounters Date Type Department Care Team (Late st Contact Info) Description 04/07/2025 10:30 AM EST Office Visit [facility] [address] [place] [phone] Vannesa Sebastian PA [address] [place] [address] Health Maintenance Due Date Last Done Comments CT Colonography 1955 FIT 1955 FOBT 1955 Medicare Annual Wellness (AWV) 1955 Sigmoidoscopy 1955 Pneumococcal Vaccine: 65+ Ye ars (1 of 1 - PCV) 09/23/2007 Influenza Vaccine (Season Ended) 2024 FIT-DNA 11/27/2025 11/27/2022 Colonoscopy 11/27/2032 11/27/2022, 11/01, 11/27/2022, Additional history exists Colorectal Cancer Screening 11/27/2032 Procedures Procedure Name Priority Date/Time Associated Diagnosis Comments LAB COLOGUARD COLON CANCER SCREEN Routine 11/27/2022 2:31 PM EDT COLONOSCOPY Routine 01/07/2018 12:00 PM EDT from Last 3 Months or Most Recently Relevant to Health Maintenance Results * Cologuard?? colon cancer screening (11/27/2022 2:31 PM EDT) Stool Vasu Currie DO LAB MOLECULAR DIAGNOSTICS ORD ERABLES Final Result * Colonoscopy (01/07/2018 12:00 PM EDT) Anatomical Region Laterality Modality Endoscopy 01/07/2018 12:0 0 PM EDT Narrative 01/07/2018 12:00 PM EDT PERFORMED AT [facility] LOCATION:[id number] Procedure Note CONVERSION, GENERIC - 08/16/2022 PERFORMED AT [facility] LOCATION:[id number] Dhruv Lam ENDOSCOPY PROCEDURE ORDERABLES Final Result from Last 3 Months or Most Recently Relevant to Health Maintenance Insurance [employer] MEDICARE Care Teams Water/Wastewater Project Manager Relationship Specialty Start Date End Date Unallocated, Noms Mary, [address] [place] [address] PCP - General Family Medicine 03/22/23
--- OUTSIDE RECORDS SUMMARY | 2024-09-02 12:13 | XMS_ITS | Clinical Summary ---
Author Organization [facility] Address [address] [place] [address] Care Team Providers Care Asphalt Roller Person Name Role Phone Unavailable Primary Care Provider Unavailabl e Social History Tobacco Use Types Packs/Day Years Used Date Smoking Tobacco: Never Assessed Sex and Gender Information Value Date Recorded Sex Assigned at Not on file Legal Sex Male 10:08 AM EST Gender Identity Not on file Sexual Orientation Not on file Plan of Treatment Not on file Insurance BLUE CARD PPO OOS
--- OUTSIDE RECORDS SUMMARY | 2024-09-02 12:13 | XMS_ITS | Encounter Summary ---
Author Organization Vend[place] tem Address [id number] [address] [place] [address] Care Team Providers Care Admissions Representative Name Role Phone Mirtha Gill MD Primary Care Provider [phone] Encounter Details Date Type Department Care Team (Late st Contact Info) Description [facility]/07[facility]20[facility] [address] [address] Helen Lira CMA Social History Tobacco Use Types Packs/Day Years Used Date Smoking Tobacco: Never Smokeless Tobacco: Never Alcohol Use Standard Drinks/Week Comments Never 0 (1 standard drink = 0.6 oz pur e alcohol) PHQ-2 Answer Date Recorded Total Score 0 03/22/2023 Childcare Answer Date Recorded Childcare Unknown 09/11/2018 Employment Answer Date Recorded Employment Unknown 09/11/2018 Hunger Screening Answer Date Recorded Within the past 12 months we worried whether our food would run out before we got money to buy more. Never True 04/24/2023 Within the past 12 months th e food we bought just didn't last and we didn't have money to get more. Never True 04/24/2023 Purpose - Life Answer Date Recorded Purpose and direction in life Unknown Sex and Gender Information Value Date Recorded Sex Assigned at Not on file Legal Sex Male 11:34 AM EDT Gender Identity Not on file Sexual Orientation Not on file documented as of this encounter Miscellaneous Notes * Telephone Encounter - Helen Lira CMA - 05/07/2023 1:57 PM EST ----- Message from Mirtha Gill MD sent at 05/07/2023 1:39 PM EST ----- Reviewed. Please call and share: Your Scrotal US was normal and did not show any obvious hernia. There are many possible reasons for this. Are you still having pain? If so I would encourage for you to setup an appointment or telemed phonecall for us to discuss next steps. MIRTHA GILL MD * Telephone Encounter - Helen Lira CMA - 05/07/2023 1:57 PM EST Patient was called to be given notification. No answer lvm to call office. * Telephone Encounter - Helen Lira CMA - 05/07/2023 1:57 PM EST Patient called back into office, was given results and stated understanding. He did state at time of call that the pain has subsided. And would give office a call to set up an appointment if it should occur again. documented in this encounter Plan of Treatment Upcoming Encounters Date Type Department Care Team (Late st Contact Info) Description 07/23/2025 11:15 AM EDT Office Visit [facility] [address] [place] [phone] Mirtha Gill MD [address] [facility] [place] [address] documented as of this encounter Visit Diagnoses Not on filedocumented in this encounter Additional Health Concerns Assessment Noted Time PHQ-9 Depression Total Score: 0 03/22/20 8:52 AM EST documented as of this encounter Care Teams Admissions Representative Relationship Specialty Start Date End Date Mirtha Gill MD [address] [facility] [place] [address] PCP - General Internal Medicine 03/22/23 documented as of this encounter
--- NOTE | 2024-09-02 12:18 | XR_ITS ---
[facility] [place] [id number] Patient Name: KATHERINE PONCE MRN: [id number] date: 1955 Sex: M Assigned Patient Location: RAD Current Patient Location: [facility] Accession/Order Number: [id number] Exam Date: 09/02/2024 12:53 Report Date: 09/02/2024 12:56 At the request of: SHARLA ARRIAZA MD Procedure: XR abdomen 1V SINGLE VIEW ABDOMEN COMPARISON: 03/13/2024 CLINICAL DATA: Follow-up kidney stones. Supine view of the abdomen and pelvis was obtained. The right internal ureteral stent on the prior has been removed. There is air within small and large bowel loops. There is also colonic stool. The kidneys are partially obscured. There is an irregular stone or clustered stones at the lower pole of the right kidney. The entire area is approximately 6 to 7 mm in size. No obvious radiopaque stones are identified on the left. There are pelvic phleboliths. No soft tissue masses are seen. There are degenerative changes in spine and sclerosis at the SI joints. XR/XR abdomen 1V IMPRESSION: RIGHT NEPHROLITHIASIS. Impression dictated by: Sindy Warren M.D. 09/02/2024 12:56 PM Dictation Location: [place] [address] Electronically authenticated by: [id number] Y Date: 09/02/2024 12:56
== END 2024-09-02 12:04 | disposition home or self-care (01) ==
LOC: RAD 12:11
PROVIDERS: PCP Student in an Organized Health Care Education/Training Program; Visit Provider Urology
DX: N20.0 Calculus of kidney (principal)
CPT/HCPCS: 74018

== ENCOUNTER 2024-09-09 08:09 | Outpatient (OUT) | payer MEDICARE, OTHER, SELFPAY ==
--- OUTSIDE RECORDS SUMMARY | 2024-09-09 08:14 | XMS_ITS | Encounter Summary ---
Author Organization [employer] tem Address [id number] [address] [place] [address] Care Team Providers Care Lead Technical Architect Name Role Phone Mirtha Gill MD Primary Care Provider [phone] Encounter Details Date Type Department Care Team (Late st Contact Info) Description 05/07[facility]2023 [facility] [address] [place] [address] [place] [address] Helen Lira CMA Social History [...] Office Visit [facility] [address] [place] [phone] Mirtha Gill MD [address] [facility] [place] [address] documented as of this encounter Visit Diagnoses Not on filedocumented in this encounter Additional Health Concerns Assessment Noted Time PHQ-9 Depression Total Score: 0 03/22/20 8:52 AM EST documented as of this encounter Care Teams Lead Technical Architect Relationship Specialty Start Date End Date Mirtha Gill MD [address] [facility] [place] [address] PCP - General Internal Medicine 03/22/23 documented as of this encounter
--- OUTSIDE RECORDS SUMMARY | 2024-09-09 08:14 | XMS_ITS | Clinical Summary ---
Author Organization [facility] tem Address [facility] [id number] [address] [place] [address] Care Team Providers Care Doll Dresser Name Role Phone Mirtha Veliz MD Primary Care Provider [phone] Allergies Active Allergy Reactions Criticality Noted Date [...] Office Visit [facility] [address] [place] [address] [place] [address] Vasu Kimble, Encounter for Medicare annual wellness exam (Primary Dx); Constipation, unspecified constipation type; Benign prostatic hyperplasia, unspecified whether lower urinary tract symptoms present 07/21/2024 Travel from Last 3 Months Immunizations Immunization [...] Office Visit [facility] [address] [place] [address] Mirtha Veliz MD [address] [place], [place] [id number] Health Maintenance Due Date Last Done Comments Adult BMI Follow Up Plan 09/23/1975 Zoster (Shingles) Vaccine (1 of 2) 09/23/2007 COVID-19 Vaccine (5 - 2023-2 5 season) 2023 03/03/2022, 08/20/2021, 02/20/2021, Additional [...] PM CARDIOVASCULAR - 11/27/2022 1:14 PM EDT [facility] Patient Name: Zander Whitehead Procedure Date No Time: 11/27/2022 CSN : [id number] Date of : 1955 Admit Type: Outpatient Age: 67 Room: [place] [address] Gender: Male Note Status: Finalized Attending MD: [...] were monitored continuously. The OLYMPUS CF-190L # [id number] ADULT COLONOSCOPE was introduced through the anus [...] malignant neoplasm of colon CPT copyright 2021 [employer]. All rights reserved. The codes documented in this report are preliminary and upon budget analyst review may be revised to meet current compliance requirements. DO Vasu Serra DO 11/27/2022 1:14:03 PM Number of Addenda: 0 Note Initiated On: 11/27/2022 12:45 PM Procedure Note Vasu Currie DO - 11/27/2022 [facility] Patient Name: Zander Whitehead Procedure Date No Time: 11/27/2022 CSN : [id number] Date of : 1955 Admit Type: Outpatient Age: 67 Room: [place] [address] Gender: Male Note Status: Finalized Attending MD: Vasu Currie DO, Procedure: Colonoscopy Indications: Screening for colorectal malignant neoplasm Providers: Vasu Currie DO Referring MD: Vasu Currie DO Medicines: Propofol per Anesthesia Complications: No immediate complications. Procedure: After I obtained informed consent, the scope was passed under direct vision. Throughout theprocedure, the patient's blood pressure, pulse, and oxygen saturations were monitored continuously. The[employer]ium CF-190L # [id number] ADULT COLONOSCOPE was introduced through the anus [...] malignant neoplasm of colon CPT copyright 2021 [employer]. All rights reserved. The codes documented in this report are preliminary and upon budget analyst reviewmay be revised to meet current compliance requirements. DO Vasu Serra DO 11/27/2022 1:14:03 PM Number of Addenda: 0 Note Initiated On: 11/27/2022 12:45 PM Vasu Currie DO GI PROCEDURE ORDERABLES Fin al Result PM CARDIOVASCULAR from Last 3 Months or Most Recently Relevant to Health Maintenance Insurance MEDICARE [place] [place] Care Teams Doll Dresser Relationship Specialty Start Date End Date Mirtha Veliz MD [address] [facility], [place] [address] PCP - General Internal Medicine 03/22/23
--- OUTSIDE RECORDS SUMMARY | 2024-09-09 08:14 | XMS_ITS | Clinical Summary ---
Author Organization [facility] Healthcare Address [address] [place] [address] Care Team Providers Care Pellet Mill Operator Name Role Phone Unallocated, Noms Provider Primary [...] intervertebral disc displacement, lumbar r egion 09/21/2016 Immunizations Immunization Administration Dates Next Due Moderna [...] [facility] [address] [place] [phone] Vannesa Sebastian, PA [address] [place] [address] Health Maintenance Due Date Last Done Comments [...] Narrative 01/07/2018 12:00 PM EDT [place] [facility] [id number] Procedure Note CONVERSION, GENERIC - 08/16/2022 [place] [facility] [place][id number] Dhruv Lam ENDOSCOPY PROCEDURE ORDERABLES Final Result from Last 3 Months or Most Recently Relevant to Health Maintenance Insurance [employer] [place] MEDICARE Care Teams Pellet Mill Operator Relationship Specialty Start Date End Date Unallocated, Noms Provider, [address] [place], [place] [id number] PCP - General Family Medicine 03/22/23
--- OUTSIDE RECORDS SUMMARY | 2024-09-09 08:14 | XMS_ITS | Clinical Summary ---
Author Organization [facility] Address [address] [place] [address] Care Team Providers Care Polytechnic Registrar Name Role Phone Unavailable Primary Care Provider [...]
--- NOTE | 2024-09-09 08:16 | US_ITS ---
The [address] [address] Patient Name: KATHERINE PONCE MRN: [id number] date: 1955 Sex: M Assigned Patient Location: US Current Patient Location: US Accession/Order Number: [id number] Exam Date: 09/09/2024 09:37 Report Date: 09/09/2024 09:41 At the request of: SHARLA ARRIAZA MD Procedure: US renal BI BILATERAL RENAL AND BLADDER ULTRASOUND CLINICAL HISTORY: Right Flank Pain. History of Kidney Stones. Previous stent. COMPARISON: CT 01/23/2024 Estimation of renal size is approximately 10.0 cm on the right and 11.0 cm on the left. Right renal cysts are again visualized. At the midpole on the right, the cyst measures 15 x 11 x 14 mm. At the inferior pole, the cyst measures 4.9 x 4.9 x 6.2 cm. A suspected irregular stone or cluster of stones is still visualized at the lower pole on the right adjacent to the dominant cyst. The area measures approximately 11 x 12 x 11 mm. In size No hydronephrosis is noted.. There is no perinephric fluid. The urinary bladder is partially distended with a volume of 428 mL. There is an enlarged lobulated prostate with mass effect at the bladder trigone. The prostate measures 5.5 x 5.3 x 6.9 cm in size. No other bladder abnormalities are identified. No contour or intraluminal abnormalities are seen. US/US renal BI IMPRESSION: NO OBSTRUCTIVE UROPATHY. RIGHT RENAL CYSTS AND NEPHROLITHIASIS. PROSTATE HYPERTROPHY. Impression dictated by: Sindy Warren M.D. 09/09/2024 9:41 AM Dictation Location: [place] [address] Electronically authenticated by: [id number] Y Date: 09/09/2024 09:41
--- OUTSIDE RECORDS SUMMARY | 2024-09-09 08:16 | XMS_ITS | CCD ---
Author Organization [facility] Care Team Providers Care Facility Examiner Name Role Phone MONICA PARHAM Primary Care Physician Unavailab DO Krishna Beasley Attending Provider DO Monica Parham Primary Care Provider MONTIEL ., DR MAGDALENO Admitting Unavailable MONTIEL ., DR MAGDALENO Consulting Unavailable MONTIEL ., DR MAGDALENO Attending Unavailable HERNÁNDEZ, WINTER Consulting Unavailable REQUEST, DR NONE LISTED Consulting [...] Attending Unavailable ARTHUR ONTIVEROS Consulting Unavailable LEOLADONALD MEJIA Consulting Unavailable CHANA, DR GIOVANNY Beaulieu Consulting Unavailable LEOLA, DONALD Admitting Unavailable LEOLA, DONALD Attending Unavailable LEOLADONALD Consulting Unavailable MISC, DR HOWARD Primary Care Unavailable MONTIEL ., DR MAGDALENO Admitting Unavailable MONTIEL ., DR MAGDALENO Consulting Unavailable MONTIEL ., DR MAGDALENO Attending Unavailable PEDRO IISHANIA Consulting Unavailable CLEOPATRA DAVIDSON Consulting Unavailable SARAVANANC, DR HOWARD Primary Care Unavailable CHANA, DR GIOVANNY Beaulieu Consulting Unavailable DIAB ., SANTHOHS Admitting Unavailable DIAB ., SANTHOSH Attending Unavailable GRECHNY ., BETTY ROCKWELL Consulting Unavailcallie e MISC, DR HOWARD Primary Care Unavailable SHAYNA, DR JOE Cardona Admitting Unavailabl e SHAYNA, DR JOE Cardona Attending Unavailabl e SHAYNA, DR JOE Cardona Consulting Unavailcallie MARIE, DR JOHANNA Layton Consulting Unavailable MD Sharla Montiel Attending Provider [phone] NON STAFF Primary Care Provider Unavailcallie e NON STAFF Primary Care Unavailable Sharla Montiel Attending Unavailable Sharla Monteil Admitting Unavailable Unallocatkrystal MAGANA, Noms Provider Primary Care Gaeli sammy Jose Alfredo Keerthi MAGANA Primary Care Provider JOSE ALFREDO, MUHAMID M Primary Care Unavailable ISIDRO AVILEZ Attending Unavailable VANNESA REYES Attending Unavailable VANNESA REYES Attending Unavailable JORDAN FRANCISCO Attending Unavailable JOSE ALFREDO, MUHAMID M Referring Unavailable JOSE ALFREDO, MUHAMID M Primary Care Unavailable JOSE ALFREDO, MUHAMID M Attending Unavailable JOSE ALFREDO, MUHAMID M Referring Unavailable JOSE ALFREDO, MUHAMID M Primary Care Unavailable KAREN CORBETT Attending Unavailable JOSE ALFREDO, MUHAMID M Referring Unavailable JOSE ALFREDO, MUHAMID M Primary Care Unavailable JOSE ALFREDO, MUHAMID M Attending Unavailable JOSE ALFREDO, MUHAMID M Referring Unavailable JOSE ALFRDEO, MUHAMID M Primary Care Unavailable JEANA HERNANDEZ Attending Unavailable JOSE ALFREDO, MUHAMID M Referring Unavailable JOSE ALFREDO, MUHAMID M Primary Care Unavailable Jose Alfredo Keerthi MAGANA Primary Care Provider Sharla MONTIEL Attending Unavailable CORI, MONICA Primary Care Unavailable Sharla MONTIEL Attending Unavailable CORI, MONICA Primary Care Unavailable Sharla MONTIEL Attending Unavailable CORI, MONICA Primary Care Unavailable CORI, MONICA Primary Care Unavailable Sharla MONTIEL Attending Unavailable CORI, MONICA Primary Care Unavailable Sharla MONTIEL Attending Unavailable Allergies Allergy Classification Reported Allergen(s) Allergy Type Date of Onset Reaction(s) Facility (13 sources) Sulfamethoxazole / Trimethoprim; Translations: [sulfamethoxazole-t rimethoprim] Drug Allergy Unknown (qualifier value) [facility] (13 sources) Sulfonamides (Antibiotic); Translations: [sulfa drugs] Drug allergy Itching (finding), Weal (disorder) [facility] (1 source) Sulfonamides (Antibiotic) Drug allergy (disorder) 08-23-19 [facility] (3 sources) Sulfonamides (Antibiotic); Translations: [SULFA (SULFONAMIDE ANTIBIOTICS)] Drug allergy (disorder) 09-22-19 [facility] (13 sources) Sulfonamides (Antibiotic) Drug Intolerance 09-22-19 17 Hives [facility] Medications Current Medications Medication Drug Class(es) Dates Sig (Normalized) Sig (Original) 1 ML risankizumab-rzaa 150 MG/ML Auto-Injector [Skyrizi] (1 source) Start: 09-08-2024 Skyrizi Pen 150 mg/mL subcutaneous solution 150 mg, Refills(s) 0 Start Date: 09/08/24 Status: Ordered Repeat number: 1 acetaminophen 325 mg / HYDROcodone bitartrate 5 mg oral tablet (3 sources) Opioid Agonist Start: 06-12-2018 Hydrocodone-Acetam inophen 5-325 mg tablet Active TABLET June 11, 2018 11:00pm acyclovir 400 mg oral tablet (3 sources) Herpesvirus Nucleoside Analog DNA Polymerase Inhibitor, Herpes Simplex Virus Nucleoside Analog DNA Polymerase Inhibitor, Herpes Zoster Virus Nucleoside Analog DNA Polymerase Inhibitor Start: 06-01-2024 End: 06-08-2024 take 2 tablets by mouth five times daily acyclovir (ZOVIRAX) 400 mg tablet Take 2 tablets (800 mg total) by mouth 5 (five) times a day for 7 days. 70 tablet 06/01/2024 06/08/2024 Active amoxicillin 875 mg / clavulanate 125 mg oral tablet (3 sources) Penicillin-class Antibacterial Start: 05-27-2024 take 1 tablet by mouth every twelve hours amoxicillin-clavul anate (Augmentin) 875-125 MG tablet Take 1 tablet by mouth every 12 (twelve) hours 05/27/2024 Active Start: 05-27-2024 take 1 tablet by gisella th every twelve hours Amoxicillin-Pot Clavulanate 875-125 mg tablet Active 1 TAB PO Every 12 hours 19 01May 27, 2024 12:00am betamethasone 0.5 mg/ml topical cream (5 sources) Corticosteroid Start: 04-06-2023 betamethasone dipropionate 0.05 % cream Indications: Psoriasis vulgaris (CMS/HCC) Apply to affected areas, up to twice a day when flared, do not use one the face, groin, or underarms, 30 day supply 15 g 11 04/06/2023 Active cholecalciferol 0.01 mg oral capsule (1 source) Vitamin D Start: 05-27-2024 take 1 capsule by mouth once daily Cholecalciferol (Vitamin D3) 10 mcg (400 unit) capsule Active 10 MCG PO Daily May 27, 2024 12:00am cholecalciferol, vitamin D3, (VITAMIN D3 ORAL) (8 sources) take 1 tablet by mouth in the morning cholecalciferol, vitamin D3, (VITAMIN D3 ORAL) Take 1 tablet by mouth in the morning. Active take 1 tablet by mouth in the mo rning cholecalciferol, vitamin D3, (VITAMIN D3 ORAL) Take [...] 06/02/2023 Active docosahexaenoic acid/epa (FISH OIL ORAL) (8 sources) take 3 capsules by mouth in the morning docosahexaenoic acid/epa (FISH OIL ORAL) Take 3 capsules by mouth in the morning. Active take 3 capsules by m outh in the morning docosahexaenoic acid/epa (FISH OIL ORAL) Take 3 capsules by mouth in the morning. 0 Active docusate sodium 100 mg oral capsule (1 source) Start: 07-21-2024 take 1 capsule by mouth once daily as needed for constipation docusate sodium (COLACE) 100 mg capsule Indications: Constipation, unspecified constipation type Take 1 capsule (100 mg total) by mouth daily as needed for constipation. 30 capsule 1 07/21/2024 Active doxycycline hyclate 100 mg oral capsule (1 source) Tetracycline-cl ass Drug Start: 09-18-2022 End: 10-02-2022 take 1 capsule by mouth twice daily doxycycline hyclate 100 mg Cap 100 mg = 1 cap(s), Oral, BID, X 14 day(s), # 28 cap(s), Refills(s) 0, Pharmacy: [facility]/pharmacy #[id number], 179, cm, 05/01/22 9:25:00 EST, Height/Length Dosing, 88, kg, 05/01/22 9:25:00 EST, Weight Dosing Start Date: 09/18/22 Stop Date: 10/02/22 Status: Ordered dutasteride 0.5 mg oral capsule (14 sources) 5-alpha Reductase Inhibitor Start: 10-09-2022 End: 07-21-2024 dutasteride (Avodart) 0.5 MG capsule Take 0.5 mg by mouth. 10/09/2022 Active Fish Oils (13 sources) Start: 01-07-2024 take 2 capsules by mouth three times daily Fish Oil 500 mg oral capsule 1,000 mg = 2 cap(s), Oral, TID, # 130 cap(s), Refills(s) 0 Start Date: 01/07/24 Status: Ordered Quantity: 130.0 Unit: cap(s) Repeat number: 1 Start: 01-07-2024 take 2 capsules by m outh three times daily Fish Oil 500 mg oral capsule 1,000 mg = 2 cap(s), Oral, TID, # 130 cap(s), Refills(s) 0 Start Date: 01/07/24 Status: Ordered Start: 08-17-2021 Fish Oil Oral, Refill(s) 0 Start Date: 08/17/21 Status: Ordered fluticasone propionate 0.05 mg/actuat metered dose nasal spray (3 sources) Corticosteroid Start: 05-27-2024 take 2 spray(s) nasal route once daily fluticasone (Flonase) 50 MCG/ACT nasal spray INSTILL 2 SPRAYS INTO EACH NOSTRIL EVERYDAY FOR 30 DAYS 05/27/2024 Active Start: 05-27-2024 take 2 spray(s) nasa l route once daily Fluticasone Propionate (Flonase Allergy Relief) 50 mcg/actuation spray,suspension Active 2 SPRAY INTRANASAL Daily May 27, 2024 12:00am administer 2 spray into each nostril Glyc-Na Lact/Phos/Biphos-Potcl liquid (1 source) Start: 05-27-2024 Glyc-Na Lact/Phos/Biphos-Potcl liquid Active EACH MISCELLANE May 27, 2024 12:00am hydrocortisone 0.025 mg/mg topical ointment (5 sources) Corticosteroid Start: 04-06-2023 hydrocortisone 2.5 % ointment Indications: Psoriasis vulgaris (CMS/HCC) Apply topically 2 (two) times a day Apply thin layer to affected areas of the face bid prn for flares 30 g 11 04/06/2023 Active 1 ml ixekizumab 80 mg/ml auto-injector (13 sources) Interleukin-17A Antagonist Start: 04-19-2023 inject 1 mL by subcutaneous injection once Taltz 80 MG/ML injection Indications: Psoriasis vulgaris (CMS/HCC) Inject 1 mL (80 mg) under the skin every 28 (twenty-eight) days 1 each 11 04/19/2023 Active Start: 10-17-2021 End: 07-21-2024 TALTZ AUTOINJECTOR 80 mg/mL auto-injector Inject 80 mg under the skin every 28 days. 10/17/2021 07/21/2024 Discontinued (Formulary change) levoFLOXacin 500 mg oral tablet (1 source) Quinolone Antimicrobial Start: 05-01-2022 End: 05-15-2022 take 1 tablet by mouth once daily Levaquin 500 mg Tab 500 mg = 1 tab(s), Oral, Daily, X 14 day(s), # 14 tab(s), Refills(s) 0, Pharmacy: [facility]/pharmacy #[id number], 179, cm, 05/01/22 9:25:00 EST, Height/Length Dosing, 88, kg, 05/01/22 9:25:00 EST, Weight Dosing Start Date: 05/01/22 Stop Date: 05/15/22 Status: Ordered [place] 1-Yro-Poq-Fish Oil (Fish Oil) 60-90-500 mg capsule (1 source) Start: 05-27-2024 take 1 capsule by mouth once daily [place] 4-Jal-Avk-Fish Oil (Fish Oil) 60-90-500 mg capsule Active 1 CAP PO Daily May 27, 2024 12:00am omega-3 acid ethyl esters (alf) 1000 mg oral capsule (5 sources) Start: 09-14-2022 omega-3 acid ethyl esters (Lovaza) 1 g capsule TAKE 2 CAPSULES BY MOUTH TWICE A DAY DIRECTED 09/14/2022 Active polyethylene glycol 3350 54256 mg powder for oral solution (1 source) Osmotic Laxative Start: 07-21-2024 polyethylene glycol (GLYCOLAX) 17 gram packet Indications: Constipation, unspecified constipation type Take 17 g by mouth in the morning. 14 each 07/21/2024 Active potassium citrate 10 meq extended release oral tablet (20 sources) Start: 09-18-2022 potassium CITRATE 10 mEq ER Tab 10 mEq, 1 tab(s), Oral, BID, 180 tab(s), Refill(s) 3, [facility]/pharmacy #[id number], 178, cm, 07/02/23 9:59:00 EDT, Height/Length Dosing, 90.2, kg, 07/02/23 9:59:00 EDT, Weight Dosing Start Date: 09/24/23 Status: Ordered Quantity: 180.0 Unit: tab(s) Repeat number: 4 Start: 10-28-2021 potassium CITR ATE 10 mEq ER Tab 10 mEq, 1 tab(s), Oral, BID, 90 tab(s), Refill(s) 3, [facility]/pharmacy #[id number], 177.8, cm, 10/28/21 10:29:00 EDT, Height/Length Dosing, 92.3, kg, 10/28/21 10:29:00 EDT, Weight Dosing Start Date: 10/28/21 Status: Ordered take 1 tablet by gisella th in the morning POTASSIUM CITRATE ORAL Take 1 tablet by mouth in the morning and 1 tablet before bedtime. Active take 1 tablet by gisella th in the morning POTASSIUM CITRATE ORAL Take 1 tablet by mouth in the morning and 1 tablet before bedtime. 0 Active predniSONE 50 mg oral tablet (3 sources) Start: 06-01-2024 End: 06-06-2024 take 1 tablet by mouth in the morning predniSONE (DELTASONE) 50 mg tablet Take 1 tablet (50 mg total) by mouth in the morning for 5 days. 5 tablet 06/01/2024 06/06/2024 Active Risankizumab-Rzaa (1 source) Start: 05-27-2024 Risankizumab-R zaa (Skyrizi) 150 mg/mL syringe Active 150 MG SUBCUT EVERY 12 WEEKS May 27, 2024 12:00am SKYRIZI 150 mg/mL pen injector (1 source) Start: 04-10-2024 SKYRIZI 150 mg /mL pen injector Inject 150 mg (contents of ONE pen) under the skin every 12 weeks 04/10/2024 Active Skyrizi Pen 150 MG/ML solution auto-injector (2 sources) Start: 04-10-2024 Skyrizi Pen 15 0 MG/ML solution auto-injector Indications: Plaque Psoriasis Inject 150 mg (contents of ONE pen) under the skin every 12 weeks 1 mL 4 04/10/2024 Active Taltz Autoinjector (2 sources) Start: 07-02-2023 Taltz Autoinje ctor mg, SubCutaneous, q4wk, Refills(s) 0 Start Date: 07/02/23 Status: Ordered tamsulosin hydrochloride 0.4 mg oral capsule (11 sources) alpha-Adrenerg ic Gaurang Start: 03-10-2024 take 1 capsule by mouth in the morning tamsulosin (FLOMAX) 0.4 mg capsule Take 1 capsule (0.4 mg total) by mouth in the morning. 03/12/2024 Active Start: 05-30-2022 take 1 capsule by [facility] once daily tamsulosin 0.4 mg Cap 0.4 mg = 1 cap(s), Oral, Daily, # 90 cap(s), Refills(s) 3, Pharmacy: [facility]/pharmacy #[id number], 179, cm, 05/01/22 9:25:00 EST, Height/Length Dosing, 88, kg, 05/01/22 9:25:00 EST, Weight Dosing Start Date: 05/30/22 Status: Ordered Start: 06-13-2018 take 1 capsule by [facility] every twenty-four hours Tamsulosin 0.4 mg capsule Active 0.4 MG PO Q24H June 12, 2018 11:00pm Vitamin D3 (12 sources) Start: 08-17-2021 Vitamin D3 Ref ills(s) 0 Start Date: 08/17/21 Status: Ordered Repeat number: 1 Start: 08-17-2021 Vitamin D3 Ref ills(s) 0 Start Date: 08/17/21 Status: Ordered Zinc (9 sources) Start: 08-17-2021 take 1 mg by mouth o nce daily Zinc mg, Oral, Daily, Refills(s) 0 Start Date: 08/17/21 Status: Ordered Completed/Discontinued Medications Medication Drug Class(es) Dates Sig (Normalized) Sig (Original) gabapentin 300 mg oral capsule (5 sources) Anti-epileptic Agent Start: 06-03-2024 End: 07-21-2024 take 1 capsule by mouth three times daily gabapentin (NEURONTIN) 300 mg capsule Indications: Herpes zoster without complication Take 1 capsule (300 mg total) by mouth 3 (three) times a day. 21 capsule 06/03/2024 07/21/2024 Discontinued Start: 06-01-2024 End: 06-04-2024 take 1 capsule by mouth once daily, then take 1 capsule by mouth twice daily, then take 1 capsule by mouth three times daily gabapentin (NEURONTIN) 300 mg capsule Indications: Herpes zoster without complication Take 1 capsule (300 mg total) by mouth daily for 1 day, THEN 1 capsule (300 mg total) 2 (two) times a day for 1 day, THEN 1 capsule (300 mg total) 3 (three) times a day for 1 day. 6 capsule 06/01/2024 06/04/2024 Active hydrOXYzine hydrochloride 10 mg oral tablet (4 sources) Antihistamine Start: 04-11-2024 End: 07-21-2024 take 1 tablet by mouth every four hours as needed for anxiety hydrOXYzine (ATARAX) 10 mg tablet Indications: Palpitation Take 1 tablet (10 mg total) by mouth every 4 (four) hours as needed for anxiety (heart racing). 30 tablet 04/11/2024 07/21/2024 Discontinued (Duplicate Listing) ibuprofen 800 mg oral tablet (6 sources) Nonsteroidal Anti-inflammatory Drug Start: 05-23-2023 End: 07-21-2024 ibuprofen (MOTRIN) 800 mg tablet Take 1 tablet (800 mg total) by mouth in the morning and 1 tablet (800 mg total) at noon and 1 tablet (800 mg total) in the evening. 30 tablet 05/23/2023 07/21/2024 Discontinued methylPREDNISolone 4 mg oral tablet (5 sources) Corticosteroid Start: 07-31-2023 End: 07-21-2024 take 1 tablet by mouth in the morning methylPREDNISolone (MEDROL, CRISTIAN,) 4 mg tablet Take 1 tablet (4 mg total) by mouth in the morning. follow package directions. 21 tablet 07/31/2023 07/21/2024 Discontinued naproxen 500 mg oral tablet (3 sources) Nonsteroidal Anti-inflammatory Drug Start: 06-12-2018 End: 05-27-2024 Naproxen 500 mg Tablet Discontinued TABLET June 11, 2018 11:00pm May 27, 2024 1:55pm Start: 06-12-2018 Naproxen Activ e TABLET June 12, 2018 12:00am Problems Active Problems Problem Classification Problem Date Documented Da te Episodic/Chronic Abdominal pain (19 sources) Flank pain; Translations: [Unspecified abdominal pain] Onset: 08-22-2022 10-11-2018 Episodic Adjustment disorders (5 sources) Adjustment disorder; Translations: [Adjustment disorder, unspecified] Onset: 11-08-2022 11-08-2022 Chronic Calculus of urinary tract (20 sources) History of calculus of kidney; Translations: [Personal history of urinary calculi] Onset: 08-16-2021 Episodic Disorders of lipid metabolism (5 sources) Mixed hyperlipidemia; Translations: [Mixed hyperlipidemia] Onset: 11-08-2022 11-08-2022 Chronic Headache; including migraine (2 sources) New daily persistent headache; Translations: [New daily persistent headache (NDPH)] Onset: 07-31-2023 07-31-2023 Chronic Hyperplasia of prostate (20 sources) Benign prostatic hypertrophy with outflow obstruction; Translations: [Benign prostatic hyperplasia with lower urinary tract symptoms] Onset: 08-16-2021 Chronic Inflammatory conditions of male genital organs (1 source) Chronic prostatitis; Translations: [CHRONIC PROSTATITIS] Onset: 08-22-2022 Chronic Nutritional deficiencies (6 sources) Vitamin D deficiency; Translations: [Vitamin D deficiency, unspecified] Onset: 11-08-2022 11-08-2022 Chronic Osteoarthritis (20 sources) Arthritis; Translations: [Unspecified osteoarthritis, unspecified site] Onset: 07-17-2022 11-08-2022 Chronic Other aftercare (1 source) Other nursing home (current) drug therapy; Translations: [OTH RN CALL CENTER CURRENT DRUG THERAPY] Onset: 08-28-2022 Episodic Other aftercare (2 sources) Long-term current use of drug therapy; Translations: [Other nursing home (current) drug therapy] 04-07-2024 Episodic Other connective tissue disease (1 source) [...] and reflux uropathy] Onset: 08-16-2021 Episodic Other gastrointestinal disorders (1 source) Constipation, unspecified; Translations: [Constipation, unspecified] Onset: 07-21-2024 Episodic Other gastrointestinal disorders (1 source) Constipation; Translations: [Constipation, unspecified] 07-21-2024 Episodic Other inflammatory condition of skin (8 sources) Psoriasis vulgaris; Translations: [Psoriasis vulgaris] Onset: 11-08-2022 11-08-2022 Chronic Other inflammatory condition of skin (5 sources) Psoriasis; Translations: [Psoriasis, unspecified] Onset: 11-08-2022 11-08-2022 Chronic Other lower respiratory disease (3 sources) Dyspnea on exertion; Translations: [Other forms of dyspnea] 04-11-2024 Episodic Other nervous system disorders (5 sources) Difficulty walking; Translations: [Difficulty in walking, not elsewhere classified] Onset: 11-08-2022 11-08-2022 Chronic Other nervous system disorders (3 sources) Paresthesia of skin; Translations: [PARESTHESIA OF SKIN] Onset: 08-25-2022 Episodic Other screening for suspected conditions (not mental disorders or infectious disease) (20 sources) Raised prostate specific antigen; Translations: [Elevated prostate specific antigen [PSA]] Onset: 08-16-2021 Episodic Other upper respiratory infections (6 sources) Pharyngitis; Translations: [Acute pharyngitis, unspecified] Onset: 04-23-2024 04-23-2024 Episodic Residual codes; unclassified (1 source) Other specified postprocedural states; Translations: [OTH SPECIFIED POSTPROCEDURAL STATES] Onset: 08-28-2022 Episodic Spondylosis; intervertebral disc disorders; other back problems (20 sources) Degeneration of lumbosacral intervertebral disc; Translations: [Disc disease, degenerative, lumbar or lumbosacral] Onset: 09-21-2016 11-08-2022 Chronic Unclassified (2 sources) Earache Onset: 06-01-2024 Unclassified (1 source) wellness Onset: 07-21-2024 Viral infection (5 sources) Zoster without complications; Translations: [Herpes zoster without complication] Onset: 06-01-2024 06-02-2024 Episodic Past or Other Problems Problem Classification Problem Date Documented Date Episodic/Chronic Abdominal hernia (2 sources) Inguinal hernia; Translations: [Unilateral inguinal hernia, without obstruction or gangrene, not specified as recurrent] 04-24-2023 Episodic Cardiac dysrhythmias (2 sources) Palpitations; Translations: [Palpitations] Onset: 04-11-2024 04-11-2024 Episodic Diabetes mellitus without complication (5 sources) Impaired glucose tolerance; Translations: [Impaired glucose tolerance (oral)] Onset: 11-08-2022 11-08-2022 Episodic Genitourinary symptoms and ill-defined conditions (20 sources) Blood in urine; Translations: [Gross hematuria] Onset: 08-16-2021 Episodic Headache; including migraine (1 source) Headache Onset: 07-31-2023 Episodic Inflammatory conditions of male genital organs (20 sources) Prostatitis; Translations: [Epididymitis] Onset: 11-08-2022 02-07-2019 Episodic Miscellaneous mental health disorders (5 sources) Anxiety about body function or health; Translations: [Other symptoms and signs involving emotional state] Onset: 11-08-2022 11-08-2022 Episodic Mood disorders (8 sources) Mood disorders Onset: 03-22-2023 Resolved: 07-21-2024 03-22-2023 Nausea and vomiting (13 sources) Postoperative nausea and vomiting; Translations: [Nausea with vomiting, unspecified] Onset: 07-17-2022 11-08-2022 Episodic Other connective tissue disease (5 sources) Tendonitis of left patellar tendon; Translations: [Patellar tendinitis, left knee] Onset: 11-08-2022 11-08-2022 Episodic Other diseases of kidney and ureters (5 sources) Disorder of urinary tract; Translations: [Other obstructive and reflux uropathy] Onset: 11-08-2022 11-08-2022 Episodic Other injuries and conditions due to external causes (11 sources) Foreign body in bladder; Translations: [Foreign body in bladder, initial encounter] Onset: 08-29-2022 Episodic Other lower respiratory disease (1 source) Other forms of dyspnea; Translations: [Other forms of dyspnea] Onset: 04-11-2024 Episodic Other non-traumatic joint disorders (5 sources) Pain in left knee; Translations: [Pain in joint, lower leg] Onset: 11-08-2022 11-08-2022 Episodic Other upper respiratory disease (5 sources) Deviated nasal septum; Translations: [Deviated nasal septum] Onset: 11-08-2022 11-08-2022 Episodic Other upper respiratory disease (1 source) Tenderness over maxillary sinus; Translations: [Other specified disorders of nose and nasal sinuses] 07-31-2023 Episodic Spondylosis; intervertebral disc disorders; other back problems (20 sources) Backache; Translations: [Sciatica, right side] Onset: 07-17-2022 02-10-2019 Episodic Results Test Name Value Interpretation Reference Range Facility POCT rapid strep Aon 025 Internal Coarse Wire Drawer Check Completed and Passed Yes [employer] [facility] [employer] S. pyogenes Ag IA Ql (Unsp spec) Negative [facility] Visit Summaryon 1 Ambulatory Visit Summary [...] Sharla MONTIEL MD Where: [facility] [address] [place] [address]- You Need to Schedule the Following Appointments Follow Up with Sharla MONTIEL MD, URL When: Comments: 1 yr w/ PSA Where: [facility] [address], [place] [address]- [phone] Medications What How Much When Instructions Unchanged [...] recommend t (more content not included)... Normal [facility]rology Office/Clinic Noteon 01-07-2024 Urology Office/Clinic [...] 07/02/23. 01/04/24 - 7.17 MRI 03/10/19 at [facility] - negative. TRUS/bx 2008 - negative. Prostate MRI 07/30/23 [facility] [place] [place] - Neg. PSA has decreased from prior. No indication for further intervention, will cont to monitor. 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 S/p TURP 08/17/22 - chronic prostatitis. Prostate MRI 07/30/23 [facility] [place] [place] - Prostate volume 89 mL. Stopped Dutasteride [...] Currently asx. Follow-up With When Contact Information SOFIYA MAGANA, Sharla Layton, URL [facility] [address], [place] [address]- [phone] Additional Instructions: 1 yr w/ PSA Patient Education Prostate Cancer Screening I, Marilu Meng, personally scribed for Dr. Montiel on 01/07/2024 12:40:47. . Documentation recorded by the scribe, Marilu Meng, accurately reflects the services(s) I performed and decisions made by me. Authenticated by Dr. Mitchell (more content not included)... Normal [facility] Comment on above: Result Comment: Elec tronically Signed By: SOFIYA MAGANA, Sharla Layton\.br\Date and Time Signed: 01/07/24 12:43 EDT\.br\Electronically Co-Signed By: Marilu Meng\.br\Date and Time Co-Signed: 01/07/24 12:41 EDT ISTAT XRay CREon 07-30-2023 ISTAT GFR > 60.0 Normal [facility] Comment on above: Result Comment: PERF ORMED BY: [place] [address] PATHOLOGIST ELECTRICIAN RESEARCH TRENT STEWART M.D. Performed By: #### I SCRE #### [address] MR prostate wo/w conon 07-29 MR prostate wo/w con [facility] Main [place] [address] [place] [address] MRI Report Signed Patient: Zander Ponce MR#: [id number] : 1955 Acct:[id number] Age/Sex: 67 / M ADM Date: 07/30/23 Loc: MR Room: Type: [facility] Attending Dr: Sharla Montiel MD Copies to: [...] Ayala Jr., D.OCassidy07/30/2023 6:41 PM Dictation Location: [facility] Transcribed By: [facility] 07/30/231840 Dictated By: Terrell Ayala Jr, DO 07/30/231837 Signed By: 07/30/231840 Normal [facility] No Panel InformationOrdered By: Sharla Montiel on 07-30-2023 Bedside Estimated GFR (eGFR) > 60.0 [facility] Whole blood creatinine measu rementOrdered By: Sharla Montiel on 07-30-2023 Creatinine [Mass/Vol] 1.3 mg/dL Normal 0.6-1.3 [facility] Comment on above: ER/ESD physician is notified/shown all ISTAT results.Critical values may be confirmed by laboratory testing ifdeemed necessary by ER attending doctor. Result Comment: ER/E SD physician is notified/shown all ISTAT results. Critical values may be confirmed by laboratory testing if deemed necessary by ER attending doctor. Performed By: #### I SCRE #### [facility] [address] [place] [address] [place] LELIA DOP LEG RTon 08-26-19 US [...] GIOVANNY ZAYAS Date: 2022-08-25 15:47 Normal [facility] PROF CHEM 8 (BAS METB)on Anion gap [Moles/Vol] 7.8 mmol/L Normal [facility] Comment on above: Performed By: #### B MP ####[facility] [address] [place], [place] [address]Dr. Leeanna Carlson Calcium [Mass/Vol] 9.1 mg/dL Normal 8.5-10.1 [facility] Comment on above: Performed By: #### B MP ####[facility] N[address] [place], [place] [address]Dr. Tammieami Carlson Chloride [Moles/Vol] 105 mmol/L Normal 98-107 [facility] Comment on above: Performed By: #### B MP ####[facility] [address] [place], [place] [address]Dr. Leeanna Carlson CO2 [Moles/Vol] 28.6 mmol/L Normal 21.0-32.0 [facility] Comment on above: Performed By: #### B MP ####[facility] [address] [place], [place] [address]Dr. Tammieami Aldo Creatinine [Mass/Vol] 1.18 mg/dL Normal 0.70-1.30 [facility] Comment on above: Performed By: #### B MP ####[facility] [address] [place], [place] [address]Dr. Tammieami Aldo EGFR-AF BERMUDIAN >60 Normal >=60 [facility] Comment on above: Performed By: #### B MP ####[facility] Pet[address] [place], [place] [address]Dr. Leeanna Carlson EGFR-NON AF BERMUDIAN >60 Normal >=60 [facility] Comment on above: Performed By: #### B MP ####[facility] P[address]xet[address] [place], [place] [address]Dr. Leeanna Carlson Glucose [Mass/Vol] 96 mg/dL Normal 74-106 [facility] Comment on above: Performed By: #### B MP ####[facility] [address] [place], [place] [address]Dr. Leeanna Carlson Potassium [Moles/Vol] 4.4 mmol/L Normal 3.5-5.1 [facility] Comment on above: Performed By: #### B MP ####[facility] [address] [address]Dr. Leeanna Carlson Sodium [Moles/Vol] 137 mmol/L Normal 136-145 [facility] Comment on above: Performed By: #### B MP ####[facility] [address] [place], [place] [address]Dr. Leeanna Carlson Urea nitrogen [Mass/Vol] 17.0 mg/dL Normal 7.0-18.0 [facility] Comment on above: Performed By: #### B MP ####[facility] [address] [place], [place] [address]Dr. Leeanna Carlson Urea nitrogen/Creatinine [Mass ratio] 14.4 mg/mg Normal [facility] Comment on above: Performed By: #### B MP ####[facility] [address] [place], [place] [address]Dr. Leeanna Carlson PROTIMEon 08-09-2022 INR Coag (PPP) [Relative time] 1.01 {INR} Normal [facility] Comment on above: Performed By: #### P T, PTT ####[facility] [address] [place], [place] [address]Dr. Leeanna Carlson INR GUIDELINES SEE BELOW Normal [facility] Comment on above: Result Comment: AIRAM RED INR: 2.0 - 3.0 CONDITIONS NOT LISTED BELOW 2.5 - 3.5 FOR PROSTHETIC HEART VALVE REPLACEMENT 2.5 - 3.5 RECURRENT THROMBOSIS Performed By: #### P T, PTT ####[facility] [address] [place], [place] [address]Dr. Leeanna Carlson PT Coag (PPP) [Time] 10.7 s Normal 9.0-11.6 [facility] Comment on above: Performed By: #### P T, PTT ####[facility] [address] [place], [place] [address]Dr. Leeanna Carlson PTTon 08-09-2022 aPTT Coag (Bld) [Time] 29.2 s Normal 22.3-36.2 [facility] Comment on above: Performed By: #### P T, PTT ####[facility] [address] [address]Dr. Leeanna Carlson CBC AUTO DIFFon 07-28-2022 BASO # 0.0 103/ul Normal 0.0-0.1 [facility] Comment on above: Performed By: #### C BC #### [facility] Laboratory [address] [address] [address] Leeanna Carlson Basophils/100 WBC (Bld) 0.8 % Normal 0.2-2.0 [facility] Comment on above: Performed By: #### C BC #### [facility] Laboratory [address] [address] [address] Leeanna Carlson EO # 0.0 103/ul Normal 0.0-0.7 [facility] Comment on above: Performed By: #### C BC #### [facility] Laboratory [address] [address] [address] Leeanna Carlson Eosinophils/100 WBC (Bld) 0.6 % Critically low 0.9-7.0 [facility] Comment on above: Performed By: #### C BC #### [facility] Laboratory [address] [address] [address] Leeanna Carlson Erythrocyte distribution width (RBC) [Ratio] 13.3 % Normal 11.0-15.0 [facility] Comment on above: Performed By: #### C BC #### [facility] Laboratory [address] [address] [address] Leeanna Carlson Hematocrit (Bld) [Volume fraction] 46.5 % Normal 42.0-54.0 [facility] Comment on above: Performed By: #### C BC #### [facility] Laboratory [address] [address] [address] Leeanna Carlson Hemoglobin (Bld) [Mass/Vol] 15.4 g/dL Normal 14.0-18.0 [facility] Comment on above: Performed By: #### C BC #### [facility] Laboratory [address] [address] [address] Leeanna Carlson IG # 0.01 10e3/ul Normal 0.00-0.03 [facility] Comment on above: Performed By: #### C BC #### [facility] Laboratory [address] [place] [address] Dr. Leeanna Carlson IG % 0.2 % Normal 0.0-0.5 [facility] Comment on above: Performed By: #### C BC #### [facility] Laboratory [address] [place] [address] Dr. Leeanna Carlson LYMPH # 1.8 103/ul Normal 1.2-3.8 [facility] Comment on above: Performed By: #### C BC #### [facility] Laboratory [address] [place] [address] Dr. Leeanna Carlson Lymphocytes/100 WBC (Bld) 35.0 % Normal 20.5-60.0 [facility] Comment on above: Performed By: #### C BC #### [facility] Laboratory [address] [place] [address] Dr. Leeanna Carlson MANUAL DIFF REQ NO Normal [facility] Comment on above: Performed By: #### C BC #### [facility] Laboratory [address] [place] [address] Dr. Leeanna Carlson MCH (RBC) [Entitic mass] 28.4 pg Normal 25.9-34.0 [facility] Comment on above: Performed By: #### C BC #### [facility] Laboratory [address] [place] [address] Dr. Leeanna Carlson MCHC (RBC) [Mass/Vol] 33.1 g/dL Normal 29.9-35.2 [facility] Comment on above: Performed By: #### C BC #### [facility] Laboratory [address] [place] [address] Dr. Leeanna Carlson MCV (RBC) [Entitic vol] 85.6 fL Normal 80.0-94.0 [facility] Comment on above: Performed By: #### C BC #### [facility] Laboratory [address] [place] [address] Dr. Leeanna Carlson MONO # 0.6 103/ul Normal 0.3-0.8 [facility] Comment on above: Performed By: #### C BC #### [facility] Laboratory [address] [address] [address] Leeanna Carlson Monocytes/100 WBC (Bld) 11.5 % Normal 1.7-12.0 [facility] Comment on above: Performed By: #### C BC #### [facility] Laboratory [address] [address] [address] Leeanna Carlson NEUT # 2.7 103/ul Normal 1.4-6.5 [facility] Comment on above: Performed By: #### C BC #### [facility] Laboratory [address] [place] [address] Dr. Leeanna Carlson Neutrophils/100 WBC (Bld) 51.9 % Normal 43.0-75.0 [facility] Comment on above: Performed By: #### C BC #### [facility] Laboratory [address] [place] [address] Dr. Leeanna Carlson Platelet mean volume (Bld) [Entitic vol] 9.9 fL Normal 9.5-13.5 [facility] Comment on above: Performed By: #### C BC #### [facility] Laboratory [address] [place] [address] Dr. Leeanna Carlson PLT 191 103/ul Normal 150-450 [facility] Comment on above: Performed By: #### C BC #### [facility] Laboratory [address] [place] [address] Dr. Leeanna Carlson RBC 5.43 106/ul Normal 4.70-6.10 [facility] Comment on above: Performed By: #### C BC #### [facility] Laboratory [address] [place] [address] Dr. Leeanna Carlson WBC 5.1 103/ul Normal 4.0-11.0 [facility] Comment on above: Performed By: #### C BC #### [facility] Laboratory [address] [place] [address] ABD/PELVIS WO CONon [...] JOHANNA MARIE Date: 2022-07-28 10:52 Normal [facility] ER URINE PROFILEon 3 Bilirubin Ql (U) Negative Normal NEGATIVE [facility] Comment on above: Performed By: #### U MICRO, ERUR #### [facility] Laboratory [address] [place] [address] Dr. Leeanna Carlson Clarity (U) CLOUDY Abnormal CLEAR [facility] Comment on above: Performed By: #### U MICRO, ERUR #### [facility] Laboratory [address] [address] [address] Leeanna Carlson Color (U) BROWN Abnormal YELLOW [facility] Comment on above: Performed By: #### U MICRO, ERUR #### [facility] Laboratory [address] [address] [address] Leeanna KEENE A micrscopic examination will be performed if indicated. Normal [facility] Comment on above: Performed By: #### U MICRO, ERUR #### [facility] Laboratory [address] [address] [address] Leeanna Carlson Glucose Ql (U) Negative Normal NEGATIVE [facility] Comment on above: Performed By: #### U MICRO, ERUR #### [facility] Laboratory [address] [address] [address] Leeanna Carlson Hemoglobin Ql (U) LARGE Abnormal NEGATIVE [facility] Comment on above: Performed By: #### U MICRO, ERUR #### [facility] Laboratory [address] [address] [address] Leeanna Carlson Ketones Ql (U) Negative Normal NEGATIVE [facility] Comment on above: Performed By: #### U MICRO, ERUR #### [facility] Laboratory [address] [place] [address] Dr. Leeanna Carlson LEUKOCYTES TRACE Abnormal NEGATIVE [facility] Comment on above: Performed By: #### U MICRO, ERUR #### [facility] Laboratory [address] [address] [address] Leeanna Carlson Nitrite Ql (U) Negative Normal NEGATIVE [facility] Comment on above: Performed By: #### U MICRO, ERUR #### [facility] Laboratory [address] [address] [address] Leeanna Carlson pH (U) 5.0 [pH] Normal 5-9 [facility] Comment on above: Performed By: #### U MICRO, ERUR #### [facility] Laboratory [address] [address] [address] Leeanna Carlson Protein (U) [Mass/Vol] 30 mg/dL Abnormal NEGAT KIERSTEN/ TRACE [facility] Comment on above: Performed By: #### U MICRO, ERUR #### [facility] Laboratory [address] [place] [address] Dr. Leeanna Carlson SPEC GRAVITY 1.020 Normal 1.005-<=1.025 [facility] Comment on above: Performed By: #### U MICRO, ERUR #### [facility] Laboratory [address] [address] [address] Leeanna Carlson UR MICRO IND INDICATED Normal [facility] Comment on above: Performed By: #### U MICRO, ERUR #### [facility] Laboratory [address] [place] [address] Dr. Leeanna Carlson Urobilinogen Qn (U) 1.0 {Marito'U}/dL Normal 0.2 - 1. 0 [facility] Comment on above: Performed By: #### U MICRO, ERUR #### [facility] Laboratory [address] [place] [address] Dr. Leeanna Carlson URINE MICROSCOPIC ONLYon BACTERIA NONE SEEN Normal NONE SEEN [facility] Comment on above: Performed By: #### U MICRO, ERUR #### [facility] Laboratory [address] [place] [address] Dr. Leeanna Carlson Bacteria identified Cx Nom (U) NOT INDICATED Normal [facility] Comment on above: Performed By: #### U MICRO, ERUR #### [facility] Laboratory [address] [place] [address] Dr. Leeanna Carlson CAST NONE SEEN Normal NONE SEEN [facility] Comment on above: Performed By: #### U MICRO, ERUR #### [facility] Laboratory [address] [place] [address] Dr. Leeanna Carlson Crystals LM Nom (Urine sed) NONE SEEN Normal NONE SEEN [facility] Comment on above: Performed By: #### U MICRO, ERUR #### [facility] Laboratory [address] [place] [address] Dr. Leeanna Carlson Epithelial cells LM Ql (Urine sed) RARE Normal NONE SEEN /RARE [facility] Comment on above: Performed By: #### U MICRO, ERUR #### [facility] Laboratory [address] [place] [address] Dr. Leeanna Carlson MUCOUS NONE SEEN Normal NONE SEEN [facility] Comment on above: Performed By: #### U MICRO, ERUR #### [facility] Laboratory [address] [place] [address] Dr. Leeanna Carlson RBC (U) [#/Vol] /uL Abnormal 0-2 [facility] Comment on above: Performed By: #### U MICRO, ERUR #### [facility] Laboratory [address] [address] [address] Leeanna Carlson WBC 0-2 Abnormal NONE SEEN [facility] Comment on above: Performed By: #### U MICRO, ERUR #### [facility] Laboratory [address] [address] [address] Leeanna Carlson CULTURE URINEon 06-14-2022 CULTURE URINE Culture Observations: NO GROWTH. Normal [facility] Comment on above: Performed By: #### U RCX ####[facility] [address] [address]Dr. Leeanna Carlson UA RANDOMon 06-14-2022 Bilirubin Ql (U) Negative Normal NEGATIVE [facility] Comment on above: Performed By: #### U A #### [facility] Laboratory [address] [place] [address] Dr. Leeanna Carlson Clarity (U) CLEAR Normal CLEAR [facility] Comment on above: Performed By: #### U A #### [facility] Laboratory [address] [address] [address] Leeanna Carlson Color (U) LT. YELLOW Normal YELLOW [facility] Comment on above: Performed By: #### U A #### [facility] Laboratory [address] [address] [address] Leeanna Carlson Glucose Ql (U) Negative Normal NEGATIVE [facility] Comment on above: Performed By: #### U A #### [facility] Laboratory [address] [address] [address] Leeanna Carlson Hemoglobin Ql (U) SMALL Abnormal NEGATIVE [facility] Comment on above: Performed By: #### U A #### [facility] Laboratory [address] [address] [address] Leeanna Carlson Ketones Ql (U) Negative Normal NEGATIVE [facility] Comment on above: Performed By: #### U A #### [facility] Laboratory [address] [place] [address] Dr. Leeanna Carlson LEUKOCYTES Negative Normal NEGATIVE [facility] Comment on above: Performed By: #### U A #### [facility] Laboratory [address] [address] [address] Leeanna Carlson Nitrite Ql (U) Negative Normal NEGATIVE [facility] Comment on above: Performed By: #### U A #### [facility] Laboratory [address] [place] [address] Dr. Leeanna Carlson pH (U) 6.0 [pH] Normal 5-9 [facility] Comment on above: Performed By: #### U A #### [facility] Laboratory [address] [address] [address] Leeanna Carlson SPEC GRAVITY <=1.005 Abnormal 1.005-<=1.025 [facility] Comment on above: Performed By: #### U A #### [facility] Laboratory [address] [place] [address] Dr. Leeanna Carlson UA PROTEIN Negative Normal NEGATIVE/ TRACE [facility] Comment on above: Performed By: #### U A #### [facility] Laboratory [address] [place] [address] Dr. Leeanna Carlson Urobilinogen Qn (U) 0.2 {Marito'U}/dL Normal 0.2 - 1. 0 [facility] Comment on above: Performed By: #### U A #### [facility] Laboratory [address] [place] [address] Dr. Leeanna Carlson US KIDNEYSon 06-14-2022 US [...] ARTHUR ONTIVEROS Date: 2022-06-14 14:27 Normal [facility] XR KUB 1 VIEWon 06-14-2022 XR KUB [...] by: GIOVANNY ZAYAS Date: 2022-06-14 13:33 Normal [facility] Creatinine (Bld) [Mass/Vol]O rdered By: Dave Solorio on 04-27-2022 Creatinine [Mass/Vol] 1.2 mg/dL 0.6-1.3 [facility] Comment on above: ER/ESD physician is notified/shown all ISTAT results.Critical values may be confirmed by laboratory testing ifdeemed necessary by ER attending doctor. No Panel InformationOrdered By: Dave Solorio on 04-27-2022 POC Estimated GFR > 60 [facility] Comment on above: GFR estimated refere nce range: According to KDOQI guidelines, <60 ml/min/1.73m2 is sufficient to diagnose a patient with chronic kidney disease. POC Estimated GFR Non- Amer > 60 [facility] XR KUB 1 VIEWon 04-19-2022 XR [...] GIOVANNY ZAYAS Date: 2022-04-19 16:59 Normal [facility] XR KUB 1 VIEWon 10-06-2021 XR KUB [...] JOHANNA MARIE Date: 2021-10-06 16:08 Normal [facility] CBC AUTO DIFFon 09-28-2021 BASO # 0.0 103/ul Normal 0.0-0.1 [facility] Comment on above: Performed By: #### C BC ####[facility] [address] [place], [place] [address]Dr. Leeanna Carlson Basophils/100 WBC (Bld) 0.8 % Normal 0.2-2.0 [facility] Comment on above: Performed By: #### C BC ####[facility] [address] [place], [place] [address]Dr. Leeanna Carlson EO # 0.1 103/ul Normal 0.0-0.7 [facility] Comment on above: Performed By: #### C BC ####[facility] [address] [place], [place] [address]Dr. Leeanna Carlson Eosinophils/100 WBC (Bld) 2.0 % Normal 0.9-7.0 [facility] Comment on above: Performed By: #### C BC ####[facility] [address] [place], [place] [address]Dr. Leeanna Carlson Erythrocyte distribution width (RBC) [Ratio] 13.2 % Normal 11.0-15.0 [facility] Comment on above: Performed By: #### C BC ####[facility] [address] [place], [place] [address]Dr. Leeanna Carlson Hematocrit (Bld) [Volume fraction] 47.8 % Normal 42.0-54.0 [facility] Comment on above: Performed By: #### C BC ####[facility] [address] [address]Dr. Leeanna Carlson Hemoglobin (Bld) [Mass/Vol] 15.8 g/dL Normal 14.0-18.0 [facility] Comment on above: Performed By: #### C BC ####[facility] [address] [address]Dr. Leeanna Carlson IG # 0.01 10e3/ul Normal 0.00-0.03 [facility] Comment on above: Performed By: #### C BC ####[facility] [address] [address]Dr. Leeanna Carlson IG % 0.2 % Normal 0.0-0.5 [facility] Comment on above: Performed By: #### C BC ####[facility] [address] [address]Dr. Leeanna Carlson LYMPH # 1.4 103/ul Normal 1.2-3.8 [facility] Comment on above: Performed By: #### C BC ####[facility] [address] [address]Dr. Leeanna Carlson Lymphocytes/100 WBC (Bld) 29.1 % Normal 20.5-60.0 [facility] Comment on above: Performed By: #### C BC ####[facility] [address] [address]DrCassidy Carlson MANUAL DIFF REQ NO Normal [facility] Comment on above: Performed By: #### C BC ####[facility] [address] [address]Dr. Leeanna Carlson MCH (RBC) [Entitic mass] 28.4 pg Normal 25.9-34.0 [facility] Comment on above: Performed By: #### C BC ####[facility] [address] [address]Dr. Leeanna Carlson MCHC (RBC) [Mass/Vol] 33.1 g/dL Normal 29.9-35.2 [facility] Comment on above: Performed By: #### C BC ####[facility] [address] [id number]. Leeanna Carlson MCV (RBC) [Entitic vol] 86.0 fL Normal 80.0-94.0 [facility] Comment on above: Performed By: #### C BC ####[facility] [address] [place], [place] [address]DrCassidy Carlson MONO # 0.5 103/ul Normal 0.3-0.8 [facility] Comment on above: Performed By: #### C BC ####[facility] [address] [place], [place] [address]Dr. Leeanna Carlson Monocytes/100 WBC (Bld) 9.9 % Normal 1.7-12.0 [facility] Comment on above: Performed By: #### C BC ####[facility] [address] [place], [place] [address]Dr. Leeanna Carlson NEUT # 2.9 103/ul Normal 1.4-6.5 [facility] Comment on above: Performed By: #### C BC ####[facility] [address] [place], [place] [address]DrCassidy Carlson Neutrophils/100 WBC (Bld) 58.0 % Normal 43.0-75.0 [facility] Comment on above: Performed By: #### C BC ####[facility] [address] [place], [place] [address]Dr. Leeanna Carlson Platelet mean volume (Bld) [Entitic vol] 10.3 fL Normal 9.5-13.5 [facility] Comment on above: Performed By: #### C BC ####[facility] [address] [place], [place] [id number]. Leeanna Carlson PLT 187 103/ul Normal 150-450 [facility] Comment on above: Performed By: #### C BC ####[facility] [address] [place], [place] [id number]. Leeanna Carlson RBC 5.56 106/ul Normal 4.70-6.10 [facility] Comment on above: Performed By: #### C BC ####[facility] [address] [place], [place] [address]Dr. Leeanna Carlson WBC 4.9 103/ul Normal 4.0-11.0 [facility] Comment on above: Performed By: #### C BC ####[facility] [address] [place], [place] [address]Dr. Leeanna Carlson PROF CHEM 8 (BAS METB)on Anion gap [Moles/Vol] 8.9 mmol/L Normal [facility] Comment on above: Performed By: #### B MP ####[facility] [address] [place], [place] [address]Dr. Leeanna Carlson Calcium [Mass/Vol] 9.1 mg/dL Normal 8.5-10.1 [facility] Comment on above: Performed By: #### B MP ####[facility] R[address]li[address] [place], [place] [address]Dr. Leeanna Carlson Chloride [Moles/Vol] 105 mmol/L Normal 98-107 [facility] Comment on above: Performed By: #### B MP ####[facility] [address] [place], [place] [address]Dr. Leeanna Carlson CO2 [Moles/Vol] 27.8 mmol/L Normal 21.0-32.0 [facility] Comment on above: Performed By: #### B MP ####[facility] [address] [place], [place] [address]Dr. Leeanna Carlson Creatinine [Mass/Vol] 1.18 mg/dL Normal 0.70-1.30 [facility] Comment on above: Performed By: #### B MP ####[facility] [address] [place], [place] [address]Dr. Leeanna Carlson EGFR-AF BERMUDIAN >60 Normal >=60 [facility] Comment on above: Performed By: #### B MP ####[facility] F[address] [place], [place] [address]DrCassidy Carlson EGFR-NON AF BERMUDIAN >60 Normal >=60 [facility] Comment on above: Performed By: #### B MP ####[facility] [address] [place] [id number] Carlson Glucose [Mass/Vol] 110 mg/dL Critically high 74-106 [facility] Comment on above: Performed By: #### B MP ####[facility] [address] [address]DrCassidy Carlson Potassium [Moles/Vol] 4.7 mmol/L Normal 3.5-5.1 [facility] Comment on above: Performed By: #### B MP ####[facility] [address] [address]DrCassidy Carlson Sodium [Moles/Vol] 137 mmol/L Normal 136-145 [facility] Comment on above: Performed By: #### B MP ####[facility] [address] [address]Dr. Leeanna Carlson Urea nitrogen [Mass/Vol] 22.0 mg/dL Critically high 7.0-18.0 [facility] Comment on above: Performed By: #### B MP ####[facility] [address] [address]DrCassidy Carlson Urea nitrogen/Creatinine [Mass ratio] 18.6 mg/mg Normal [facility] Comment on above: Performed By: #### B MP ####[facility] [address] [address]Dr. Leeanna Carlson PROTIMEon 09-28-2021 INR Coag (PPP) [Relative time] 0.98 {INR} Normal [facility] Comment on above: Performed By: #### P TT, PT #### [facility] Laboratory [id number] Leeanna Carlson INR GUIDELINES SEE BELOW Normal [facility] Comment on above: Result Comment: AIRAM RED INR: 2.0 - 3.0 CONDITIONS NOT LISTED BELOW 2.5 - 3.5 FOR PROSTHETIC HEART VALVE REPLACEMENT 2.5 - 3.5 RECURRENT THROMBOSIS Performed By: #### P TT, PT #### [facility] [address] [place], [place] [address] Dr. Leeanna Carlson PT Coag (PPP) [Time] 10.6 s Normal 9.0-11.6 [facility] Comment on above: Performed By: #### P TT, PT #### [facility] [address] [address] [address] Leeanna Carlson PTTon 09-28-2021 aPTT Coag (Bld) [Time] 29.3 s Normal 22.3-36.2 [facility] Comment on above: Performed By: #### P TT, PT #### [facility] [address] [address] [address] Leeanna Carlson Comprehensive Metabolic Pane puneet 06-03-2021 Albumin [Mass/Vol] 4.6 g/dL Normal 3.6-5.1 [facility] Comment on above: Performed By: #### V ITD, LIPD, CMP #### [facility] [address] [place], [place] [id number] Albumin/Globulin [Mass ratio] 1.9 {ratio} Normal 1.0-2.5 [facility] Special[facility] Comment on above: Performed By: #### V ITD, LIPD, CMP #### [facility] [address] [place], [place] [id number] ALP [Catalytic activity/Vol] 85 U/L Normal 40-129 [facility] Comment on above: Performed By: #### V ITD, LIPD, CMP #### [facility] [address] [place], [place] [id number] ALT [Catalytic activity/Vol] 28 U/L Normal 9-46 [facility] Comment on above: Result Comment: 03/02 Female reference range changed. Performed By: #### V ITD, LIPD, CMP #### [facility] [address] [place], [place] [id number] Anion gap [Moles/Vol] 18 mmol/L Normal 12-20 [facility] Comment on above: Result Comment: Effe ctive 04/07/2019 reference range changed. Performed By: #### V ITD, LIPD, CMP #### [facility] [address] [place], [place] [id number] AST [Catalytic activity/Vol] 25 U/L Normal 10-40 [facility] Comment on above: Performed By: #### V ITD LIPD, CMP #### [facility] [address] [place], [place] [id number] Bilirubin [Mass/Vol] 0.65 mg/dL Normal 0.30-1.20 [facility] Comment on above: Performed By: #### V ITD LIPD, CMP #### [facility] [address] [place], [place] [id number] BUN/CREA 24 Ratio High 6-22 [facility] Comment on above: Performed By: #### V CORINE LIPD, CMP #### [facility] [address] [place], [place] [id number] Calcium [Mass/Vol] 9.4 mg/dL Normal 8.6-10.2 [facility] Comment on above: Performed By: #### V ITD LIPD, CMP #### [facility] [address] [place], [place] [id number] Chloride [Moles/Vol] 105 mmol/L Normal 98-107 [facility] Comment on above: Performed By: #### V ITD LIPD, CMP #### [facility] [address] [place], [place] [id number] CO2 [Moles/Vol] 23 mmol/L Normal 20-31 [facility] Comment on above: Performed By: #### V ITD, LIPD, CMP #### [facility] [address] [place], [place] [id number] Creatinine [Mass/Vol] 1.1 mg/dL Normal 0.7-1.4 [facility] Comment on above: Performed By: #### V ITD, LIPD, CMP #### [facility] [address] [place], [place] [id number] eGFRAA 86 mL/min/1.73m2 Normal >60 [facility] Comment on above: Performed By: #### V ITD, LIPD, CMP #### [facility] [address] [place], [place] [id number] eGFRNAA 71 mL/min/1.73m2 Normal >60 [facility] Special[facility] Comment on above: Performed By: #### V ITD, LIPD, CMP #### [facility] [address] [place], [place] [id number] Globulin (S) [Mass/Vol] 2.4 g/dL Normal 1.9-3.7 [facility] Comment on above: Performed By: #### V ITD, LIPD, CMP #### [facility] [address] [place], [place] [id number] Glucose [Mass/Vol] 97 mg/dL Normal 65-99 [facility] Comment on above: Result Comment: For FASTING Glucose --- ADA reference ranges: Normal 65-99 mg/dl Prediabetes 100-125 Diabetes >/= 126 Performed By: #### V ITD, LIPD, CMP #### [facility] [address] [place], [place] [id number] Potassium [Moles/Vol] 4.5 mmol/L Normal 3.5-5.5 [facility] Comment on above: Performed By: #### V ITD, LIPD, CMP #### [facility] [address] [place], [place] [id number] Protein [Mass/Vol] 7.0 g/dL Normal 6.1-8.1 [facility] Comment on above: Performed By: #### V ITD, LIPD, CMP #### [facility] [address] [place], [place] [id number] Sodium [Moles/Vol] 141 mmol/L Normal 135-146 [facility] [employer] [facility] Comment on above: Performed By: #### V ITD, LIPD, CMP #### [facility] [address] [facility] [place] [id number] Urea nitrogen [Mass/Vol] 26 mg/dL High 7-25 [facility] Comment on above: Performed By: #### V ITD, LIPD, CMP #### [facility] [address] [place] [id number] Hemoglobin A1Con 06-03-2021 EAG 125.50 Normal [facility] Specialist Comment on above: Performed By: #### A 1C #### [facility] [address], [place] [id number] HbA1c (Bld) [Mass fraction] 6.0 % Normal 4.0-6.0 [facility] [employer] [facility] Comment on above: Performed By: #### A 1C #### [facility] [address], [place] [id number] Lipid Panelon 06-03-2021 Cholesterol [Mass/Vol] 232 mg/dL High 125-200 [facility] Comment on above: Result Comment: Low risk < 200mg/dL Borderline risk 201-239 mg/dl High risk > or equal to 240 Performed By: #### V ITD, LIPD, CMP #### [facility] [address] [place], [place] [id number] Cholesterol in HDL [Mass/Vol] 68 mg/dL Normal >40 [facility] [employer] Super[facility] Comment on above: Result Comment: High Cardiovascular Risk HDL <40 mg/dL Low Cardiovascular Risk HDL > or equal to 60 mg/dl Performed By: #### V ITD, LIPD, CMP #### [facility] [address] [place], [place] [id number] Cholesterol in LDL [Mass/Vol] 153 mg/dL Normal [facility] Specialist Comment on above: Result Comment: LDL ATP III CLASSIFICATION LDL less than 100 mg/dl Optimal LDL 100-129 mg/dl Near or above optimal LDL 130-159 Borderline high LDL 160-189 High LDL greater than 189 mg/dl Very High Performed By: #### V ITD, LIPD, CMP #### [facility] [address] [place], [place] [id number] Cholesterol in VLDL [Mass/Vol] 11 mg/dL Normal [facility] Specialist Comment on above: Performed By: #### V ITD, LIPD, CMP #### [facility] [address] [place], [place] [id number] Cholesterol.total/Chol esterol in HDL [Mass ratio] 3 {ratio} Normal [facility] Specialist Comment on above: Performed By: #### V ITD, LIPD, CMP #### [facility] [address] [place], [place] [id number] Triglyceride [Mass/Vol] 55 mg/dL Normal 30-150 [facility] [employer] Super[facility] Comment on above: Result Comment: TRIG ATPIII CLASSIFICATIONS TRIG less than 150 mg/dl Normal TRIG 150-199 mg/dl Borderline High TRIG 200-500 mg/dl High TRIG greather than 500 mg/dl Very High Performed By: #### V LAINE POOL, DAVID #### [facility] [address] [place], [place] [id number] Prostatic Specific Antigen, Totalon 06-03-2021 TPSA 5.030 ng/mL High <4.000 [facility] Specialist Comment on above: Result Comment: PSA Test Method: ECLIA/Maira e 601 Performed By: #### P SA #### [facility] [address] [place], [place] [id number] Vitamin D 25-OHon 06-03-2021 VIT D 25 OH 57 ng/ml Normal >29 [facility] Specialist Comment on above: Result Comment: Amanda min D Status Deficiency <20 ng/mL Insufficiency 20-29 ng/mL Optimal 30-100 ng/mL Possible Toxicity >=150 ng/mL Performed By: #### V LAINE POOL, CMP #### [facility] [address] [place], [place] [id number] MRI PROSTATE WO/W IVCONon MRI PROSTATE WO/W [...] prostate and pelvis performed on a 3T ([email or web address]) scanner utilizing phase pelvic coil. Sequences obtained: Multiplanar T2-WI with small [id number]; Axial diffusion weighted images with multiple B-values and creation of ADC-maps; Dynamic contrast enhanced T1-weighted images through the prostate were also obtained before, during and after the administration of intravenous gadolinium. Prostate dimensions and volume were obtained using a semi-automated software (Tangoe). CONTRAST: IV: 17 cc of (Dotarem). RESULT: [...] of suspicion for clinically significant prostate cancer (Stephen score 3 + 4 or higher). PI-RADS v2.1 assessment categories: PI-RADS 1: Clinically significant cancer is highly unlikely PI-RADS 2: Clinically significant cancer is unlikely PI-RADS 3: Clinically significant cancer is equivocal PI-RADS 4: Clinically significant cancer is likely PI-RADS 5: Clinically significant cancer is highly likely (V.05.2018) [facility]: [facility] Transcribe Date/Time: Mar 10 2019 1:33P Dictated by : DAVE JONES MD This examination was interpreted and the report reviewed and electronically signed by: DAVE JONES MD on Mar 10 2019 2:15PM EST [id number] Normal [facility] PROGRESSon 03-10-2019 PROGRESS HNO ID: [id number] Author: Hallie (Rn) QUIN Saavedra Service: Radiology Author Type: Registered [...] March 10, 2019 TIME: 12:15 PM Normal [facility] PROGRESS HNO ID: [id number] Author: Shania Serra) Rosina Tavera Service: Radiology Author Type: Housing Property Manager Type: Progress Notes Filed: 03/10/2019 12:54 PM [...] Ferrari March 10, 2019 12:54 PM Normal [facility] Vital Signs Date Time Vital Sign Value Performing Clinician Facility 07-21-2024 [id number] Body height 178 cm Jeana Hernandez DO Work Phone: [facility] 07-21-2024 09:28-0400 Body mass index (BMI) [Ratio] 26.28 kg/m2 Jeana Hernandez DO Work Phone: [facility] 07-21-2024 09:28-0400 Body temperature 97.59 [degF] Jeana Hernandez DO Work Phone: [facility] 07-21-2024 09:28-0400 Body weight 83.28 kg Jeana Hernandez DO Work Phone: [facility] 07-21-2024 09:28-0400 Diastolic blood pressure 82 mm[Hg] Jeana Hernandez DO Work Phone: [facility] 07-21-2024 09:28-0400 Heart rate 56 /min Jeana Hernandez DO Work Phone: [facility] 07-21-2024 09:28-0400 SaO2% (BldA) [Mass fraction] 99 % Jeana Hernandez DO Work Phone: [facility] 07-21-2024 09:28-0400 Systolic blood pressure 122 mm[Hg] Jeana Hernandez DO Work Phone: [facility] 06-03-2024 10:21-0500 Body height 177.8 cm Keerthi Gill MD Work Phone: [facility] 06-03-2024 10:21-0500 Body mass index (BMI) [Ratio] 27.52 kg/m2 Keerthi Gill MD Work Phone: [facility] 06-03-2024 10:21-0500 Body temperature 97.9 [degF] Keerthi Gill MD Work Phone: [facility] 06-03-2024 10:21-0500 Body weight 87 kg Keerthi Gill MD Work Phone: [facility] [employer] 06-03-2024 10:21-0500 Diastolic blood pressure 84 mm[Hg] Keerthi Gill MD Work Phone: [facility] 06-03-2024 10:21-0500 Heart rate 61 /min Keerthi Gill MD Work Phone: [facility] 06-03-2024 10:21-0500 SaO2% (BldA) [Mass fraction] 97 % Keerthi Gill MD Work Phone: [facility] 06-03-2024 10:21-0500 Systolic blood pressure 150 mm[Hg] Keerthi Gill MD Work Phone: [facility] 05-27-2024 13:57-0500 Body height 177.8 cm [facility] 05-27-2024 13:57-0500 Body mass index (BMI) [Ratio] 27.1 kg/m2 [facility] 05-27-2024 13:57-0500 Body temperature 97.3 [degF] [facility] 05-27-2024 13:57-0500 Body weight 85.78 kg [facility] 05-27-2024 13:57-0500 Diastolic blood pressure 79 mm[Hg] [facility] 05-27-2024 13:57-0500 Heart rate 57 /min [facility] 05-27-2024 13:57-0500 Respiratory rate 18 /min [facility] 05-27-2024 13:57-0500 SaO2% (BldA) [Mass fraction] 97 % [facility] 05-27-2024 13:57-0500 Systolic blood pressure 134 mm[Hg] [facility] 04-11-2024 08:23-0500 Body height 177.8 cm Keerthi Gill MD Work Phone: [facility] 04-11-2024 08:23-0500 Body mass index (BMI) [Ratio] 27.61 kg/m2 Keerthi Gill MD Work Phone: [facility] 04-11-2024 08:23-0500 Body temperature 97.81 [degF] Keerthi Gill MD Work Phone: [facility] 04-11-2024 08:23-0500 Body weight 87.27 kg Keerthi Gill MD Work Phone: [facility] 04-11-2024 08:23-0500 Diastolic blood pressure 82 mm[Hg] Keerthi Gill MD Work Phone: [facility] 04-11-2024 08:23-0500 Heart rate 66 /min Keerthi Gill MD Work Phone: [facility] 04-11-2024 08:23-0500 SaO2% (BldA) [Mass fraction] 96 % Keerthi Gill MD Work Phone: [facility] 01-10-2025 08:23-0500 Systolic blood pressure 138 mm[Hg] Keerthi Gill MD Work Phone: [facility] 01-07-2024 11:24-0400 Blood Pressure Location Sharla MONTIEL [facility] 01-07-2024 11:24-0400 Diastolic blood pressure 78 mm[Hg] Sharla MONTIEL [facility] 01-07-2024 11:24-0400 Heart rate 62 /min Sharla MONTIEL [facility] 01-07-2024 11:24-0400 Systolic blood pressure 136 mm[Hg] Sharla MONTIEL [facility] 07-31-2023 10:59-0400 Body height 177.8 cm Jordan Francisco CARRIER [employer]ATOR[employer] Work Phone: [facility] 07-31-2023 10:59-0400 Body mass index (BMI) [Ratio] 28.27 kg/m2 Jordan Francisco CARRIER OPERATOR[employer] Work Phone: [facility] 07-31-2023 10:59-0400 Body temperature 98.2 [degF] Jordan Francisco CARRIER OPERATOR[employer] Work Phone: [facility] 07-31-2023 10:59-0400 Body weight 89.36 kg Jordan Francisco CARRIER OPERATOR[employer] Work Phone: [facility] 07-31-2023 10:59-0400 Diastolic blood pressure 72 mm[Hg] Jordan Francisco CARRIER OPERATOR[employer] Work Phone: [facility] 07-31-2023 10:59-0400 Heart rate 66 /min Jordan Francisco CARRIER OPERATOR[employer] Work Phone: [facility] 07-31-2023 10:59-0400 SaO2% (BldA) [Mass fraction] 96 % Jordan Francisco CARRIER OPERATOR[employer] Work Phone: [facility] 07-31-2023 10:59-0400 Systolic blood pressure 132 mm[Hg] Jordan Francisco CARRIER OPERATOR[employer] Work Phone: [facility] 07-02-2023 09:42-0400 Blood Pressure Location Sharlaastrid MONTIEL [facility] 07-02-2023 09:42-0400 Body temperature 98.6 [degF] Sharlaastrid MONTIEL [facility] 07-02-2023 09:42-0400 Diastolic blood pressure 84 mm[Hg] Sharla MONTIEL [facility] 07-02-2023 09:42-0400 Heart rate 75 /min Sharla MONTIEL [facility] 07-02-2023 09:42-0400 Respiratory rate 17 /min Sharlaastrid MONTIEL [facility] 07-02-2023 09:42-0400 Systolic blood pressure 137 mm[Hg] Sharla MONTIEL [facility] 05-23-2023 13:45-0500 Body height 177.8 cm Jeana Currie DO Work Phone: [facility] 05-23-2023 13:45-0500 Body mass index (BMI) [Ratio] 28.5 kg/m2 Jeana Currie DO Work Phone: [facility] 05-23-2023 13:45-0500 Body weight 90.08 kg Jeana Currie DO Work Phone: [facility] 05-23-2023 13:45-0500 Diastolic blood pressure 85 mm[Hg] Jeana Currie DO Work Phone: [facility] 05-23-2023 13:45-0500 Heart rate 63 /min Jeana Currie DO Work Phone: [facility] 05-23-2023 13:45-0500 Systolic blood pressure 134 mm[Hg] Jeana Currie DO Work Phone: [facility] 04-24-2023 13:03-0500 Body mass index (BMI) [Ratio] 29.1 kg/m2 Keerthi Gill MD Work Phone: [facility] 04-24-2023 13:03-0500 Body temperature 97.7 [degF] Keerthi Gill MD Work Phone: [facility] 04-24-2023 13:03-0500 Body weight 91.99 kg Keerthi Gill MD Work Phone: [facility] 04-24-2023 13:03-0500 Diastolic blood pressure 78 mm[Hg] Kerethi Gill MD Work Phone: [facility] 04-24-2023 13:03-0500 Heart rate 71 /min Keerthi Gill MD Work Phone: [facility] 04-24-2023 13:03-0500 SaO2% (BldA) [Mass fraction] 97 % Keerthi Gill MD Work Phone: [facility] 04-24-2023 13:03-0500 Systolic blood pressure 134 mm[Hg] Keerthi Gill MD Work Phone: [facility] 10-09-2022 08:31-0400 Blood Pressure Location Sharla MONTIEL [facility] 10-09-2022 08:31-0400 Diastolic blood pressure 74 mm[Hg] Sharla MONTIEL [facility] 10-09-2022 08:31-0400 Heart rate 80 /min Sharla MONTIEL [facility] 10-09-2022 08:31-0400 Respiratory rate 16 /min Sharla MONTIEL [facility] 10-09-2022 08:31-0400 Systolic blood pressure 130 mm[Hg] Sharla MONTIEL [facility] 05-01-2022 09:15-0500 Blood Pressure Location Sharla MONTIEL [facility] 05-01-2022 09:15-0500 Diastolic blood pressure 84 mm[Hg] Sharla MONTIEL [facility] 05-01-2022 09:15-0500 Heart rate 75 /min Sharla MONTIEL [facility] 05-01-2022 09:15-0500 Respiratory rate 16 /min Sharla MONTIEL [facility] 05-01-2022 09:15-0500 Systolic blood pressure 129 mm[Hg] Sharla MONTIEL [facility] 04-27-2022 07:35-0500 Body height 177.8 cm DO Monica Cori Work Phone: [facility] 04-27-2022 07:35-0500 Body weight 88.45 kg DO Monica Cori Work Phone: [facility] 04-19-2022 13:20-0500 Blood Pressure Location DONALD BHAGAT [facility] 04-19-2022 13:20-0500 Diastolic blood pressure 74 mm[Hg] DONALD LEOLA [facility] 04-19-2022 13:20-0500 Heart rate 72 /min DONALD LEOLA [facility] 04-19-2022 13:20-0500 Respiratory rate 16 /min DONALD ANDREARY [facility] 04-19-2022 13:20-0500 Systolic blood pressure 126 mm[Hg] DONALD LEOLA [facility] 10-28-2021 10:27-0400 Blood Pressure Location Sharla MONTIEL [facility] 10-28-2021 10:27-0400 Diastolic blood pressure 81 mm[Hg] Sharla MONTIEL [facility] 10-28-2021 10:27-0400 Heart rate 54 /min Sharla MONTIEL [facility] 10-28-2021 10:27-0400 Respiratory rate 16 /min Sharla MONTIEL [facility] 10-28-2021 10:27-0400 Systolic blood pressure 134 mm[Hg] Sharla MONTIEL [facility] 08-17-2021 10:03-0400 Blood Pressure Location Sharla MONTIEL [facility] 08-17-2021 10:03-0400 Diastolic blood pressure 87 mm[Hg] Sharla MONTIEL [facility] 08-17-2021 10:03-0400 Heart rate 58 /min Sharla MONTIEL [facility] 08-17-2021 10:03-0400 Systolic blood pressure 134 mm[Hg] Sharla MONTIEL [facility] Encounters Encounter Date Encounter Type Care Provider Facility Start: 01-09-2025 ambulatory Sharla MONTIEL Facili ty:[facility] [place] Start: 09-08-2024 ambulatory MONICA PARHAM Facility:[facility] Start: 09-08-2024 End: 09-08-2024 Patient encounter procedure Sharla MONTIEL [facility] Start: 07-21-2024 End: 07-21-2024 Patient encounter procedure Jeana Hernandez DO Work Phone: [facility] Comment on above: Encounter for Medica re annual wellness exam (Primary Dx); Constipation, unspecified constipation type; Benign prostatic hyperplasia, unspecified whether lower urinary tract symptoms present Start: 07-21-2024 End: 07-21-2024 ambulatory LU[facility] Start: 07-21-2024 Encounter for genera l adult medical examination without abnormal findings [facility] Start: 06-03-2024 End: 06-03-2024 Office outpatient visit 15 minutes Keerthi Gill MD Work Phone: [facility] Comment on above: Herpes zoster withou t complication (Primary Dx) Start: 06-03-2024 End: 06-03-2024 ambulatory KEERTHI GILL [facility] Start: 06-02-2024 End: 06-02-2024 Office outpatient visit 15 minutes Vannesa L Amy PA Work Phone: [facility] Comment on above: Herpes zoster withou t complication (Primary Dx) Start: 06-02-2024 End: 06-02-2024 ambulatory VANNESA L AMY Not Available Start: 06-01-2024 End: 06-01-2024 Emergency department patient visit [facility] Start: 05-27-2024 End: 05-27-2024 ambulatory [facility] Work Phone: Start: 05-27-2024 End: 05-27-2024 Patient encounter procedure [facility] Work Phone: Start: 04-23-2024 End: 04-23-2024 Clinical Support Karen Corbett APRN-UNDERWEAR WELTER Work Phone: [facility] Comment on above: Pharyngitis, unspeci fied etiology (Primary Dx) Start: 04-11-2024 End: 04-11-2024 Office outpatient visit 25 minutes Keerthi Gill MD Work Phone: [facility] Comment on above: Palpitation (Primary Dx); Dyspnea on exertion Start: 04-11-2024 End: 04-11-2024 ambulatory [facility] Start: 04-07-2024 End: 04-07-2024 Bamboo flowsheet Vannesa L Amy PA Work Phone: [facility] Start: 04-07-2024 End: 04-07-2024 Bamboo flowsheet Vannesa L Amy PA Work Phone: [facility] Start: 04-07-2024 End: 04-07-2024 ambulatory VANNESA L AMY Not Available Start: 04-07-2024 End: 04-07-2024 Office outpatient visit 25 minutes Vannesa L Amy PA Work Phone: [facility] Comment on above: Psoriasis vulgaris ( CMS/HCC) (Primary Dx); Encounter for long-term (current) use of medications Start: 03-30-2024 Non-patient / Non-visit [facility] Work Phone: Start: 03-14-2024 End: 03-14-2024 ambulatory MONICA PARHAM Facility:CD:[id number] Start: 03-06-2024 End: 03-06-2024 ambulatory Sharla MONTIEL Facility:CD:[id number] Start: 01-07-2024 End: 01-07-2024 ambulatory Sharla MONTIEL Facility:[facility] Start: 01-07-2024 End: 01-07-2024 Patient encounter procedure Sharla MONTIEL [facility] Start: 07-31-2023 End: 07-31-2023 Office outpatient visit 15 minutes [facility] CARRIER OPERATOR-[employer] WELTER Work Phone: [facility] Comment on above: New daily persistent headache (Primary Dx); Tenderness over maxillary sinus; Post-nasal drip Start: 07-31-2023 End: 07-31-2023 ambulatory [facility] Start: 07-30-2023 End: 07-30-2023 Patient encounter procedure MD Sharla Montiel Work Phone: [facility] [place] Work Phone: Start: 07-30-2023 End: 07-30-[address] [facility] Work Phone: Start: 07-02-2023 End: 07-02-2023 Patient encounter procedure Sharla MONTIEL [facility] Start: 05-23-2023 End: 05-23-2023 Office outpatient visit 15 minutes Jeana Currie DO Work Phone: [facility] Comment on above: Acute epididymitis ( Primary Dx); Non-recurrent unilateral inguinal hernia without obstruction or gangrene; Epididymitis Start: 04-24-2023 End: 04-24-2023 Office outpatient visit 25 minutes Keerthi Gill MD Work Phone: [facility] Comment on above: Non-recurrent unilat eral inguinal hernia without obstruction or gangrene (Primary Dx); Flank pain Start: 04-04-2023 ambulatory Sarah [facility] - Care Coordination Team Start: 04-04-2023 Coordination of care plan Sarah ventura [facility] - Care Coordination Team Start: 10-09-2022 End: 10-09-2022 Patient encounter procedure Sharla MONTIEL [facility] Start: 09-18-2022 End: 09-18-2022 Patient encounter procedure Sharla MONTIEL [facility] Start: 08-29-2022 End: 08-29-2022 Patient encounter procedure Sharla MONTIEL [facility] Start: 08-25-2022 End: 08-25-[address] DOCTOR HALEY Facility:[facility] Start: 08-17-2022 End: 08-18-[address] DOCTOR HALEY Facility:[facility] Start: 08-12-2022 Encounter for preprocedural cardiovascular examination DR SHARLA MONTIEL . [facility] Start: 08-12-2022 Encounter for preprocedural laboratory examination DR SHARLA MONTIEL . [facility] Start: 08-09-2022 End: 08-10-[address] SHARLA MONTIEL . Facility:[facility] Start: 08-09-2022 End: 08-10-2022 Encounter for preprocedural cardiovascular examination DR SHARLA MONTIEL . Facility:[facility] Start: 07-28-2022 End: 07-28-[address] DOCTOR HALEY Facility:[facility] Start: 06-14-2022 End: 06-15-[address] GIOVANNY ZAYAS Facility:[facility] Start: 06-14-2022 End: 06-14-2022 Patient encounter procedure DONALD BHAGAT [facility] Start: 05-01-2022 End: 05-01-2022 Patient encounter procedure Sharla MONTIEL [facility] Start: 04-27-2022 End: 04-27-2022 ambulatory DO Monica G Cori Work Phone: [facility] Work Phone: Start: 04-27-2022 End: 04-27-2022 Patient encounter procedure DO Monica Cori Work Phone: [facility] [place] Work Phone: Start: 04-19-2022 End: 04-20-[address] GIOVANNY ZAYAS Facility:[facility] Start: 04-19-2022 End: 04-19-2022 Patient encounter procedure DONALD Martin LEOLA [facility] Start: 10-28-2021 End: 10-28-2021 Lab Drop off Sharla MONTIEL [facility] Start: 10-28-2021 End: 10-28-2021 Patient encounter procedure Sharla MONTIEL [facility] Start: 10-06-2021 End: 10-06-[address] SHARLA MONTIEL . Facility:[facility] Start: 09-28-2021 End: 09-29-[address] SHARLA MONTIEL . Facility:[facility] Start: 08-17-2021 End: 08-17-2021 Patient encounter procedure Sharla MONTIEL [facility] Procedures Date Procedure Procedure Detail Performing Clinician Start: 07-21-2024 Adult depression screening assessment Jeana Hernandez DO Work Phone: Start: 04-23-2024 Iaadiadoo streptococcus group a Karen Corbett CARRIER OPERATOR-[employer]DERWEAR WELTER Work Phone: Start: 04-11-2024 Follow-up visit Follow-up KEERTHI John JOSE ALFREDO Start: 07-30-2023 MR prostate wo/w con MD Sharla Montiel Work Phone: Start: 03-22-2023 Adult depression screening assessment Sarah Chase INFORMATICS ANALYST Start: 11-27-2022 Colonoscopy Sarah Slaughterkaren INFORMATICS ANALYST Start: 11-08-2022 History of transurethral prostatectomy S/P TURP (status post transurethral resection of prostate) Vannesa HERNÁNDEZ Work Phone: Start: 08-29-2022 Cystoscopic removal of ureteric stent Sharla MONTIEL Start: 08-17-2022 Transurethral prostatectomy Sharla MONTIEL Start: 04-27-2022 MRI of head DO Monica Parham Work Phone: Start: 10-06-2021 Extracorporeal shockwave lithotripsy of calculus of kidney Sharla MONTIEL Start: 03-12-2020 Cystoscopy Sharla MONTIEL Start: 08-31-2016 Transurethral prostatectomy Sharla MONTIEL Start: 07-04-2016 Cystoscopy Sharla MONTIEL Start: 09-30-2014 Cystoscopy Sharla MONTIEL Start: 04-21-2010 Transurethral prostatectomy Sharla MONTIEL Start: 02-04-2010 Urodynamic studies Sharla MONTIEL Start: 07-31-2008 Transrectal biopsy of prostate using ultrasound guidance Sharla MONTIEL Start: 07-31-2005 Cystoscopy Sharla MONTIEL Appendectomy Sharla MONTIEL Tonsillectomy Sharla MONTIEL Plan of Treatment Date Care Activity Detail Author Start: 11-27-2032 Screening for malign ant neoplasm of colon [facility] Start: 11-27-2025 Screening for malign ant neoplasm of colon FIT-DNA [facility] Start: 07-23-2025 End: 07-23-2025 Patient encounter procedure 07/23/2025 11:15 AM EDT Office Visit [facility] [address] [place] [phone] Keerthi Gill MD [address] [place] [address] [facility] Start: 07-21-2025 Adult BMI Screening Adult BMI Screen ing [facility] Start: 07-21-2025 Depression Screening Depression Scre ening [facility] Start: 07-21-2025 Medicare Annual Well ness Visit Medicare Annual Wellness Visit [facility] Start: 07-21-2025 Tobacco Screening Tobacco Screening [facility] Start: 06-01-2025 Adult BMI Screening Adult BMI Screen ing [facility] Start: 06-01-2025 Tobacco Screening Tobacco Screening [facility] Start: 04-11-2025 Adult BMI Screening Adult BMI Screen ing [facility] Start: 04-11-2025 Tobacco Screening Tobacco Screening [facility] Start: 04-07-2025 End: 04-07-2025 Patient encounter procedure 04/07/2025 10:30 AM EST Office Visit [facility] [address] [place] [address] Vannesa Reyes, PA [address] [place] [address] [facility] Start: 12-01-2024 Influenza vaccination Influenza Vacc ine [facility] Start: 07-31-2024 Tobacco Screening Tobacco Screening [facility] Start: 07-30-2024 Adult BMI Screening Adult BMI Screen ing [facility] Start: 07-30-2024 Tobacco Screening Tobacco Screening [facility] Start: 06-27-2024 DTaP,Tdap and Td Vaccines (2 - Td or Tdap) DTaP,Tdap and Td Vaccines (2 - Td or Tdap) [facility] Start: 05-23-2024 Adult BMI Screening Adult BMI Screen ing [facility] Start: 05-23-2024 Tobacco Screening Tobacco Screening [facility] Start: 04-24-2024 Adult BMI Screening Adult BMI Screen ing [facility] Start: 04-24-2024 Tobacco Screening Tobacco Screening [facility] Start: 04-11-2024 End: 04-11-2025 Echo complete W/O contrast Echo complete W/O contrast Echocardiography Routine Dyspnea on exertion Expected: 04/11/2024, Expires: 04/11/2025 [facility] Work Phone: Comment on above: Expected: 04/11/2024 , Expires: 04/11/2025 Start: 04-11-2024 End: 04-11-2025 Exercise stress test study Stress test (exercise only) [facility] Routine Dyspnea on exertion Expected: 04/11/2024, Expires: 04/11/2025 [facility] Comment on above: Expected: 04/11/2024 , Expires: 04/11/2025 Start: 04-07-2024 End: 04-07-2025 QUANTIFERON TB GOLD QUANTIFERON TB GOLD Lab Routine Psoriasis vulgaris (CMS/HCC) Encounter for long-term (current) use of medications Expected: 04/07/2024 (Approximate), Expires: 04/07/2025 [facility] [employer] Work Phone: Comment on above: Expected: 04/07/2024 (Approximate), Expires: 04/07/2025 Start: 04-04-2024 Fall Risk Screening Fall Risk Screen ing [facility] Start: 03-22-2024 Adult BMI Screening Adult BMI Screen ing [facility] Start: 03-22-2024 Depression Screening Depression Scre ening [facility] Start: 03-22-2024 Fall Risk Screening Fall Risk Screen ing [facility] Start: 03-22-2024 Tobacco Screening Tobacco Screening [facility] Start: 12-02-2023 COVID-19 Vaccine ( season) COVID-19 Vaccine () [facility] Start: 12-02-2023 Influenza vaccination [facility] Start: 10-16-2023 End: 10-16-2023 Patient encounter procedure 10/16/2023 9:15 AM EDT Office Visit [facility] [address] [place] [phone] Keerthi Gill MD [address] [place] [address] [phone] [facility] Start: 09-25-2023 End: 09-25-2023 Patient encounter procedure 09/25/2023 10:15 AM EDT Office Visit [facility] [address] [place] [phone] Keerthi Gill MD [address] [place] [address] [phone] [facility] Start: 05-02-2023 End: 05-02-2023 Patient encounter procedure 05/02/2023 9:15 AM EST Office Visit [facility] [address] [place] [phone] Jeana Currie DO [address] [place], [place] [phone] [facility] Start: 04-26-2023 End: 04-26-2023 Patient encounter procedure [facility] Start: 04-24-2023 End: 04-24-2024 US Retroperitoneum Ultrasound retroperitoneal complete Imaging Routine Flank pain Expected: 04/24/2023, Expires: 04/24/2024 [facility] Comment on above: Expected: 04/24/2023 , Expires: 04/24/2024 Start: 04-24-2023 End: 04-24-2024 US Scrotum and testicle Ultrasound scrotum Imaging Routine Non-recurrent unilateral inguinal hernia without obstruction or gangrene Expected: 04/24/2023, Expires: 04/24/2024 [employer] Work Phone: Comment on above: Expected: 04/24/2023 , Expires: 04/24/2024 Start: 12-01-2022 COVID-19 Vaccine ( season) COVID-19 Vaccine ( season) [facility] [employer] Start: 12-01-2022 Influenza vaccination Influenza Vacc ine [facility] Start: 2022 Pneumococcal Vaccine : 65+ Years (1 of 1 - PCV) Pneumococcal Vaccine: 65+ Years (1 of 1 - PCV) [facility] Start: 09-23-2007 Administration of varicella zoster vaccine Zoster (Shingles) Vaccine (1 of 2) [facility] Start: 09-23-1975 Adult BMI Follow Up Plan Adult BMI F ollow Up Plan [facility] Start: 1955 Medicare Annual Well ness (AWV) Medicare Annual Wellness (AWV) [facility] Start: 1955 Medicare Annual Well ness Visit Medicare Annual Wellness Visit [facility] Start: 1955 Screening for malign ant neoplasm of colon [facility] Immunizations Immunization Date Immunization Notes Care Provider Fa cility 03-03-2022 SARS-CoV-2 (COVID-19 ) [id number] Sharla MONTIEL [facility] 08-20-2021 SARS-CoV-2 (COVID-19 ) mRNA-1273 vaccine Sharla MONTIEL [facility] 03-02-2021 SARS-CoV-2 (COVID-19 ) mRNA-1273 vaccine Sharla MONTIEL [facility] 02-20-2021 SARS-CoV-2 (COVID-19 ) mRNA-1273 vaccine Sharla MONTIEL [facility] 01-23-2021 SARS-CoV-2 (COVID-19 ) mRNA-1273 vaccine Sharla MONTIEL [facility] 06-27-2014 tetanus toxoid, redu juventino diphtheria toxoid, and acellular pertussis vaccine, adsorbed Sharla MONTIEL [facility] Payers Date Payer Category Payer Commercial Indemnity [facility] [id number] 2024 Medicare (Managed Care) [employer] [id number] 2024 Unknown [id number] 2023 Self-pay [id number] 2022 Medicare [id number] 2022 Medicare [id number] 2014 Blue Cross Blue Shield [id number] 2014 Blue Cross Blue Shie ld Managed Care - Other [place] [id number] 2014 Unknown [place] BC [facility] HMO/PPO/TRUST [id number] 2014-Present [phone] [address] [place] [address] [id number] [id number] 1959 Unknown [id number] 1957 Unknown [id number] 2.16.840.1.444577.3.579. 2.593 1957 Unknown [id number] 2.16.840.1.270702.3.579. 2.593 1957 Unknown [id number] 2.16.840.1.094742.3.579. 2.593 1957 Unknown [id number] 2.16.840.1.100088.3.579. 2.593 1957 Unknown [id number] 2.16.840.1.741749.3.579. 2.593 1957 Unknown [id number] 2.16.840.1.009823.3.579. 2.593 1957 Unknown [id number] 2.16.840.1.266363.3.579. 2.593 1957 Unknown [id number] 2.16.840.1.348039.3.579. 2.593 1957 Unknown [id number] 2.16840.1.865065.3.579. 2.1286 1957 Unknown [id number] 2.16.840.1.584288.3.579. 2.1259 1957 Unknown [id number] 2.16.840.1.840822.3.579. 2.1259 1957 Unknown [id number] 2.16.840.1.610728.3.579. 2.1286 1957 Unknown [id number] 2.16840.1.254299.3.579. 2.1286 1957 Unknown [id number] 2.16.840.1.124179.3.579. 2.1286 1957 Unknown [id number] 2.16.840.1.177489.3.579. 2.1286 1957 Unknown [id number] 2.16.840.1.162542.3.579. 2.1286 1957 Unknown [id number] 2.16.840.1.734651.3.579. 2.727 1957 Unknown [id number] 2.16.840.1.828065.3.579. 2.727 1957 Unknown [id number] 2.16.840.1.555480.3.579. 2.727 1957 Unknown [id number] 2.16.840.1.414924.3.579. 2.727 1957 Unknown [id number] 2.16.840.1.201391.3.579. 2.727 Medicare Medicare-OP No Part B [id number] Medicare Medicare [id number] Unknown [id number] 2.16.840.1.302275.3.579. 2.531 Social History Date Type Detail Facility Start: 08-17-2021 End: 09-08-2024 Tobacco smoking status Never smoked tobacco (finding) [facility] Start: 04-19-2022 Tobacco smoking status Never [facility] [employer] Start: 04-23-2020 End: 04-06-2023 Sex Assigned At Male [facility] Start: 1955 Sex Assigned At Male [facility] Start: 07-17-2022 End: 11-08-2022 Tobacco use and exposure Smokeless tobacco non-user [facility] Start: 04-06-2023 End: 06-02-2024 Alcoholic beverage intake Ex-drinker (finding) [facility] Start: 04-23-2020 End: 04-06-2023 History of Social function [facility] Start: 04-06-2023 Gender identity Identifies as male gender (finding) [facility] Start: 04-06-2023 Sexual orientation Heterosexual (finding) [facility] Start: 04-11-2024 End: 07-21-2024 Alcoholic beverage intake Lifetime non-drinker (finding) [facility] Start: 1955 Sex assigned at Not on file [facility] Start: 11-05-2014 End: 09-28-2018 Sex Male (finding) [facility] Sexual Orientation [facility] Functional Status Date Assessment Result Facility 01-07-2024 Functional Status N/A [facility] 07-02-2023 Functional Status N/A [facility] 10-09-2022 Functional Status N/A [facility] 05-01-2022 Functional Status N/A [facility] 04-19-2022 Functional Status N/A [facility] 10-28-2021 Functional Status N/A [facility] Clinical Notes 08-16-2021 to 09-08-2024 Jeana Hernandez DO - 07/21/2024 9:30 AM EDTPatient InstructionsAttachAnny Gill MD - 06/03/2024 10:30 AM BETTY Moran - 06/02/2024 1:30 PM ESTPatient Instructions Note Date & Type Note Facility 09-08-2024 Hospital Discharge instructions Patient Education 09/08/2024 15:53:50 Dietary Guidelines to Help Prevent Kidney Stones Dietary Guidelines to Help Prevent Kidney Stones Kidney stones are deposits of minerals and salts that form inside your kidneys. Your risk of developing kidney stones may be greater depending on your diet, your lifestyle, the medicines you take, and whether you have certain medical conditions. Most people can lower their risks of developing kidney stones by following these dietary guidelines. Your dietitian may give you more specific instructions depending on your overall health and the type of kidney stones you tend to develop. What are tips for following this plan? Reading food labels Choose foods with no salt added or low-salt labels. Limit your salt (sodium) intake to less than 1,500 mg a day. Choose foods with calcium for each meal and snack. Try to eat about 300 mg of calcium at each meal. Foods that contain 200 500 mg of calcium a serving include: ?8 oz (237 mL) of milk, ryuylea-njfqevmtnoii-thfqf milk, and calcium-fortifiedfruit juice. Calcium-fortified means that calcium has been added to these drinks. ?8 oz (237 mL) of kefir, yogurt, and soy yogurt. ?4 oz (114 g) of tofu. ?1 oz (28 g) of cheese. ?1 cup (150 g) of dried figs. ?1 cup (91 g) of cooked broccoli. ?One 3 oz (85 g) can of sardines or mackerel. Most people need 1,000 1,500 mg of calcium a day. Talk to your dietitian about how much calcium is recommended for you. Shopping Buy plenty of fresh fruits and vegetables. Most people do not need to avoid fruits and vegetables, even if these foods contain nutrients that may contribute to kidney stones. When shopping for convenience foods, choose: ?Whole pieces of fruit. ?Pre-made salads with dressing on the side. ?Low-fat fruit and yogurt smoothies. Avoid buying frozen meals or prepared deli foods. These can be high in sodium. Look for foods with live cultures, such as yogurt and kefir. Choose high-fiber grains, such as whole-wheat breads, oat bran, and wheat cereals. Cooking Do not add salt to food when cooking. Place a salt shaker on the table and allow each person to add their own salt to taste. Use vegetable protein, such as beans, textured vegetable protein (TVP), or tofu, instead of meat in pasta, casseroles, and soups. Meal planning Eat less salt, if told by your dietitian. To do this: ?Avoid eating processed or pre-made food. ?Avoid eating fast food. Eat less [...] fish, or seafood. ?When you prepare animal proteins, cut pieces into small portion sizes. For most meat and fish, one serving is about the size of the palm of your hand. Eat at least five servings of fresh fruits and vegetables each day. To do this: ?Keep fruits and vegetables on hand for snacks. ?Eat one piece of fruit or a handful of berries with breakfast. ?Have a salad and fruit at lunch. ?Have two kinds of vegetables at dinner. You may be told to limit foods that are high in a substance called oxalate. These include: ?Spinach (cooked), rhubarb, beets, sweet potatoes, and Solomon Islander chard. ?Peanuts. ?Potato chips, monegasque fries, and baked potatoes with skin on. ?Nuts and nut products. ?Chocolate. If you regularly take a diuretic medicine, make sure to eat at least 1 or 2 servings of fruits or vegetables that are high in potassium each day. These include: ?Avocado. ?Banana. ?[place], prune, carrot, or tomato juice. ?Baked potato. ?Cabbage. ?Beans and split peas. Lifestyle Drink enough fluid to keep your urine pale yellow. This is the most important thing you can do. Spread your fluid intake throughout the day. If you drink alcohol: ?Limit how much you have to: ?0 1 drink a day for women who are not . ?0 2 drinks a day for men. ?Know how much alcohol is in your drink. In the [place] one drink equals one 12 oz bottle of beer (355 mL), one 5 oz glass of wine (148 mL), or one 1 oz glass of hard liquor (44 mL). Lose weight if told by your health care provider. Work with your dietitian to find an eating plan and weight loss strategies that work best for you. General information Talk to your health care provider and dietitian about taking daily supplements. Depending on your health and the cause of your kidney stones, you may be told: ?Do not take high-dose supplements of vitamin C (1,000 mg a day or more). ?To take a calcium supplement. ?To take a daily probiotic supplement. ?To take other supplements such as magnesium, fish oil, or vitamin B6. Take [id number] and prescription medicines only as told by your health care provider. These include supplements. What foods should I limit? Limit your intake of the following foods, or eat them as told by your dietitian. Vegetables Spinach. Rhubarb. Beets. Canned vegetables. Pickles. Olives. Baked potatoes with skin. Grains Wheat bran. Baked goods. Salted crackers. Cereals high in sugar. Meats and other proteins Nuts. Nut butters. Large portions of meat, poultry, or fish. Salted, precooked, or cured meats, such as sausages, meat loaves, and hot dogs. Dairy Cheeses. Beverages Regular soft drinks. Regular vegetable juice. Seasonings and condiments Seasoning blends with salt. Salad dressings. Soy sauce. Ketchup. Barbecue sauce. Other foods Canned soups. Canned pasta sauce. Casseroles. Pizza. Lasagna. Frozen meals. Potato chips. Albanian fries. The items listed above may not be a complete list of foods and beverages you should limit. Contact a dietitian for more information. What foods should I avoid? Talk to your dietitian about specific foods you should avoid based on the type of kidney stones you have and your overall health. Fruits Grapefruit. The item listed above may not be a complete list of foods and beverages you should avoid. Contact a dietitian for more information. Summary Kidney stones are deposits of minerals and salts that form inside your kidneys. You can lower your risk of kidney stones by making changes to your diet. The most important thing you can do is drink enough fluid. Drink enough fluid to keep your urine pale yellow. Talk to your dietitian about how much calcium you should have each day, and eat less salt and animal protein as told by your dietitian. This information is not intended to replace advice given to you by your health care provider. Make sure you discuss any questions you have with your health care provider. Document Revised: 06/29/2022 Document Reviewed: 06/29/2022 [employer] Patient Education 2023 [employer]at. Follow Up Care 04/18/2024 10:43:06 With:SOFIYA MAGANA, Sharla Layton, URL Address: [facility] [address] , [place] [address]- When: Unknown [facility] History of Present illness Narrative Subjective SUBJECTIVE: Patient ID: Zander Ponce is a 68 y.o. male, established patient, who presents for a Medicare Annual Wellness exam. History provided by patient. HPI The following portions of the patient's history were reviewed and updated as appropriate: allergies, current medications, past family history, past medical history, past social history, past surgical history and problem list. AWV FLOWSHEET : Lifestyle Assessment Do you smoke or use smokeless tobacco?: No If you smoke or use smokeless tobacco, are you ready to quit?: NA Are you exposed to secondhand smoke?: No On average, how many drinks of alcohol do you consume in a week?: None Do you exercise for 30 or more minutes on average at least 3 days a week?: Always Do you have any tooth, denture, or oral problems?: No Do you snore or has anyone told you that you snore?: (!) Yes Do you try to eat a balanced diet?: (!) No (Does not eat fruits and vegetables) Do you experience leakage of urine, also known as urinary incontinence?: (!) Sometimes Do you have difficulty bathing?: No Do you have difficulty dressing?: No Do you have difficulty grooming?: No Do you have difficulty eating?: No Do you have difficulty getting out of a chair?: No Do you have difficulty walking?: No Do you have difficulty using the toilet?: (!) Yes (Constipation) Do you have difficulty doing laundry?: No Do you have difficulty with housekeeping?: No Do you have difficulty preparing a meal?: No Do you have difficulty shopping?: No Do you have difficulty using transportation?: No Do you have difficulty paying bills?: No Do you have difficulty managing finances?: No Fall Risk Fall Risk Assessment Completed?: Yes Have you fallen in the past year?: No Are you worried about falling?: No Do you feel unsteady when standing or walking?: No Risk Stratification: Low Risk Depression Screening Little interest or pleasure in doing things: Not at all Feeling down, depressed, or hopeless: Not at all Trouble falling or staying asleep, or sleeping too much: Not at all Feeling tired or having little energy: Not at all Poor appetite or overeating: Not at all Feeling bad about yourself - or that you are a failure or have let yourself or your family down: Not at all Trouble concentrating on things, such as reading the newspaper or watching television: Not at all Moving or speaking so slowly that other people could have noticed. Or the opposite - being so fidgety or restless that you have been moving around a lot more than usual: Not at all Thoughts that you would be better off , or of hurting yourself in some way: Not at all PEG Scale What number best describes your pain on average in the past week?: 1 What number best describes how, during the past week, pain has interfered with your enjoyment of life?: 1 What number best describes how, during the past week, pain has interfered with your general activity?: 0 - Does not interfere PEG Pain Total Score: 0.67 Safety Assessment Do you have throw rugs on the floor?: No Do you feel safe at your home?: Yes Do you feel unsteady when walking?: No Are you having difficulty with driving?: No Do you have trouble seeing?: No Do you use a bath bar/seat?: No Do you use a raised toilet seat?: No Do you use a cane?: No Do you use a walker?: No Do you use a wheelchair?: No Hearing Assessment Do you strain or struggle to hear/understand conversations?: (!) Yes Do you have trouble hearing the television or radio when others do not?: (!) Yes Does your family ever voice concerns about your hearing?: (!) Yes Do you wear hearing aid/s?: No Personal Health During the past 4 weeks, how would you rate your overall health?: Good Do you understand how to take all of your medications?: Yes How confident are you that you can control and manage most of your health problems?: Very confident In the past 12 months, how many times have you been hospitalized?: None End of Life Planning Do you have a living will?: (!) No Do you have a durable power of workers compensation attorney?: (!) No Cognitive Screening Do you have trouble remembering or recalling facts or events?: (!) Yes (Will forget items like phone or where he left keys) Do family members or caregivers report that you have difficulty remembering things?: No Clock Drawing Test: Normal REVIEW OF SYSTEMS: Review of Systems Gastrointestinal: Positive for constipation (Having intermittent episodes of constipation wth most recent episode over the past month. Has jus participating in intermittent fasting with spouse.). Objective PHYSICAL EXAMINATION: Vitals: 07/21/24 0928 BP: 122/82 BP Site: Right Arm BP Postition: Sitting Pulse: 56 Temp: 36.4 C (97.6 F) TempSrc: Oral SpO2: 99% Weight: 83.3 kg (183 lb 9.6 oz) Height: 178 cm (5' 10.08 ) Physical Exam Vitals reviewed. Constitutional: General: He is not in acute distress. Appearance: Normal appearance. He is normal weight. He is not ill-appearing or toxic-appearing. HENT: Head: Normocephalic. Right Ear: Tympanic membrane and ear canal normal. There is no impacted cerumen. Left Ear: Tympanic membrane and ear canal normal. There is no impacted cerumen. Mouth/Throat: Mouth: Mucous membranes are moist. Pharynx: No oropharyngeal exudate or posterior oropharyngeal erythema. Eyes: Extraocular Movements: Extraocular movements intact. Conjunctiva/sclera: Conjunctivae normal. Pupils: Pupils are equal, round, and reactive to light. Neck: Vascular: No carotid bruit. Cardiovascular: Rate and Rhythm: Normal rate and regular rhythm. Heart sounds: No murmur heard. Pulmonary: Effort: Pulmonary effort is normal. No respiratory distress. Breath sounds: No wheezing, rhonchi or rales. Abdominal: General: Bowel sounds are normal. There is no distension. Palpations: Abdomen is soft. Musculoskeletal: General: No swelling. Cervical back: Neck supple. Right lower leg: No edema. Left lower leg: No edema. Lymphadenopathy: Cervical: No cervical adenopathy. Skin: Capillary Refill: Capillary refill takes less than 2 seconds. Neurological: General: No focal deficit present. Mental Status: He is alert. Gait: Gait normal. Deep Tendon Reflexes: Reflexes normal. Psychiatric: Mood and Affect: Mood normal. Behavior: Behavior normal. Thought Content: Thought content normal. Assessment/Plan ASSESSMENT/PLAN Lokesh was seen today for wellness. Diagnoses and all orders for this visit: Encounter for Medicare annual wellness exam Constipation, unspecified constipation type - polyethylene glycol (GLYCOLAX) 17 gram packet; Take 17 g by mouth in the morning. - docusate sodium (COLACE) 100 mg capsule; Take 1 capsule (100 mg total) by mouth daily as needed for constipation. Benign prostatic hyperplasia, unspecified whether lower urinary tract symptoms present Reviewed with patient the Medicare wellness form he completed in completed the Medicare available services flow sheet. For constipation issues, discussed the importance of drinking fluids and eating high-fiber diet as well as remaining active. Discussed the fiber sources can come from foods or supplements. The goals to have bowel movements with soft stool that does not require straining. Frequency of stooling can vary from person person. Start on polyethylene glycol 17 g mixed with 8 oz of fluid once daily to be taken daily for 14 days to help eliminate stool buildup from constipation. Additionally, patient to start on docusate sodium mg 1 capsule daily for a minimum 4 weeks to help restore normal bowel movement frequency. Continue to follow with urology for urologic issues. Follow up: 1 year for medicare wellness exam documented in this encounter [facility] 07-21-2024 Instructions Jeana Hernandez DO - 07/21/2024 9:30 AM EDT If constipation symptoms not improved in next 4 weeks contact office. The following attachments cannot be sent through Care Everywhere.Constipation in adults (Lao)documented in this encounter [facility] 06-03-2024 History of Present illness Narrative Images from the original note were not included. [address] [place] [id number] Patient: Zander Ponce Date of : 1955 Encounter Date: 06/03/2024 SUBJECTIVE: Chief Complaint: Chief Complaint Patient presents with Follow-up Shingles in left ear Patient ID: Zander Ponce is a 68 y.o. male. Pleasant 70-year-old gentleman with past medical history of psoriasis currently on immuno modulatory medications was recent switch from Taltz to Skyrizi. 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 Here for interval assessment of ear pain/tooth pain. Symptom onset on , progressed will Sunday. [place] left sided facial pain which extended to the ear. 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 Sent home on acyclovir, prednisone, and gabapentin. Symptoms have improved after being treated. Symptoms have improved significantly The following portions of the patient's history were reviewed and updated as appropriate: allergies, current medications, past family history, past medical history, past social history, past surgical history and problem list. PHYSICAL EXAMINATION: Vitals: 06/03/24 1021 BP: 150/84 Pulse: 61 Temp: 36.6 C (97.9 F) TempSrc: Oral SpO2: 97% Weight: 87 kg (191 lb 12.8 oz) Height: 177.8 cm (5' 10 ) Physical Exam Vitals reviewed. Constitutional: General: He [...] of motion and neck supple. Skin: Comments: Multiple post viral dry scabs noted. Consistent with post herpetic rash. Neurological: Mental Status: He is alert and oriented to person, place, and time. Mental status is at baseline. ASSESSMENT/PLAN: Lokesh was seen today for follow-up. Diagnoses and all orders for this visit: Herpes zoster without complication - gabapentin (NEURONTIN) 300 mg capsule; Take 1 capsule (300 mg total) by mouth 3 (three) times a day. No signs of herpes conjunctivitis or infection of eye The reviewed viral course Recommended ongoing gabapentin if needed for neuropathic pain. Continue to complete prednisone and acyclovir. All questions answered KEERTHI GILL MD Family Medicine Physician [facility] 06/03/24 This note was completed with voice recognition software. The document was reviewed for errors however some may still be present. Please do not hesitate to contact/[facility] the author to verify any questions/concerns. documented in this encounter [facility] 06-02-2024 History of Present illness Narrative Images from the original note were not included. Lesions: Location: chin, left ear (ER Dr in the ear) Duration: 1 week Quality: painful Associated symptoms: red, tender Treatments: Prednisone, gabapentin, Acyclovir Established patient All pertinent medical history, medications, and allergies were reviewed. General Exam: alert, oriented to person, place, and time, normal affect, well appearing Unaccompanied A focused exam completed based on patient reported problems, see below: 1. Herpes zoster without complication (2) Left Labial Mucosa of the Upper Lip, Left Lower Cutaneous Lip Superficial erosions on an erythematous base. See photos. Hearing currently nearly equal, maybe slightly less on the left per patient with rubbing of the fingertips together next to the ears. Continue current treatment plan from ER Dr. Wakefield not due until July. Follow up with PCP for eardrum to be re-evaluated and recommend referral to ENT if any hearing concerns arise. Next Visit: As scheduled documented in this encounter [facility] 04-23-2024 History of Present illness Narrative Chief Complaint Patient presents with Sore Throat There were no vitals filed for this visit. Ivon Cornejo CMA Patient is here for nurse visit. They are here for swab for possible strep throat. Ivon Cornejo CMA documented in this encounter [facility] 04-11-2024 History of Present illness Narrative Images from the original note were not included. [address] [place] [phone] Patient: Zander Ponce Date of : 1955 Encounter Date: 04/11/2024 SUBJECTIVE: Chief Complaint: Chief Complaint Patient presents with Follow-up Almost passed out playing racket ball Patient ID: Zander Ponce is a 68 y.o. male. 68-year-old gentleman here today for ER/urgent care follow-up. Seen at [facility] ER for intermittent lightheadedness, dizziness and palpitations. At that time denied have any chest pain or tightness or shortness a breath. Was placed on cardiac telemetry with heart rate as high as 120s. Workup in the ER including EKG which was within normal limits, Chest x-ray within normal limits with no focal lung consolidation. Orthostatics were assessed with a difference of 18 points systolic. IV fluids were given, did not change how he was feeling. It was recommended he obtain a Holter monitor and consider cardiac stress test from the outpatient setting. Patient was generally pretty active - plays [employer] game without symptom. Second game he started haing symptoms on dizziness, sweats, LH. 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 Does not endorse any significant chest pain, dyspnea on exertion, pedal edema, presyncopal events. The following portions of the patient's history were reviewed and updated as appropriate: allergies, current medications, past family history, past medical history, past social history, past surgical history and problem list. PHYSICAL EXAMINATION: Vitals: 04/11/24 0823 BP: 138/82 Pulse: 66 Temp: 36.6 C (97.8 F) TempSrc: Oral SpO2: 96% Weight: 87.3 kg (192 lb 6.4 oz) Height: 177.8 cm (5' 10 ) Physical Exam Constitutional: Appearance: He is well-developed. He is not ill-appearing. HENT: Head: Normocephalic. Right Ear: External ear normal. Left Ear: External ear normal. Nose: Nose normal. Eyes: General: No scleral icterus. Extraocular Movements: Extraocular movements intact. Conjunctiva/sclera: Conjunctivae normal. Pupils: Pupils are equal, round, and reactive to light. Cardiovascular: Rate and Rhythm: Normal rate and regular rhythm. Heart sounds: Normal heart sounds. No murmur heard. Pulmonary: Effort: Pulmonary effort is normal. Breath sounds: Normal breath sounds. No wheezing. Abdominal: General: Bowel sounds are normal. Palpations: Abdomen is soft. There is no mass. Tenderness: There is no abdominal tenderness. There is no guarding. Musculoskeletal: Cervical back: Normal range of motion and neck supple. Lymphadenopathy: Cervical: No cervical adenopathy. Neurological: Mental Status: He is alert and oriented to person, place, and time. Cranial Nerves: No cranial nerve deficit. Coordination: Coordination normal. Psychiatric: Behavior: Behavior normal. ASSESSMENT/PLAN: Lokesh was seen today for follow-up. Diagnoses and all orders for this visit: Palpitation - hydrOXYzine (ATARAX) 10 mg tablet; Take 1 tablet (10 mg total) by mouth every 4 (four) hours as needed for anxiety (heart racing). Dyspnea on exertion - Echo complete W/O contrast; Future - Stress test (exercise only); Future 68-year-old male with intermittent dyspnea on exertion, palpitations, presyncopal symptoms. No significant cardiac history, never had any testing completed. - Will obtain cardiac stress testing and echo as above - may consider Holter if continues to have palpitations at rest. I do believe there is significant anxiety component to patient's symptoms. Accordingly will prescribe Atarax for episodes - may consider SSRI in the future - patient discussed edible cannabis as an option to manage. KEERTHI GILL MD Family Medicine Physician [facility] 04/11/24 This note was completed with voice recognition software. The document was reviewed for errors however some may still be present. Please do not hesitate to contact/[facility] the author to verify any questions/concerns. documented in this encounter [facility] 04-11-2024 Instructions Keerthi Gill MD - 04/11/2024 8:30 AM EST Atarax as needed, up to 3 times in a day. If trailing Cannabis product attempt to find the following: -Max 5mg in a day -THC less than 5% -CBD between 10-20% documented in this encounter [facility] 04-07-2024 History of Present illness Narrative Follow up Diagnosis: Psoriasis Location: arms, axillae, and legs. (16% BSA at baseline; 0% BSA while on treatment) Last visit: 1 year ago Symptoms: clear Status: improved Procedure performed: Negative TB test Date of procedure: 04/06/2023 (to be ordered today) Current treatment: Betamethasone dipropionate cream 0.05% (started 06/07/2020), Clobetasol foam (started 06/07/2020) and Taltz 80 MG/ML subcutaneously every 28 days (started on 08/23/2020; took last injection 04/06/24; approved through 06/27/2024) See TE from 03/27/2024: Received notification from pt's insurance informing Taltz will no longer be covered beginning April 2024. Plan to switch to [employer]; per biologic coordinator we will send to pharmacy once TB test is completed All pertinent medical history, medications, and allergies were reviewed. General Exam: alert, oriented to person, place, and time, normal affect, well appearing A focused exam completed based on patient reported problems, see below: 1. Psoriasis vulgaris (CMS/HCC) Clear today Stable BSA 0%. Patient is much more comfortable today with psoriasis being under good control. Patient states they now sleep well and the quality of their professional and personal life is greatly improved. Patient denies any side effects from treatment with Taltz. Yearly TB test ordered today. Plan to switch to Skyrizi per insurance coverage (see 03/27/24 telephone encounter). Patient is currently covered under 's insurance but she will be retiring 05/2024 and then patient will then be on Medicare at that time. Instructed patient to give our office updated insurance cards when received. Will follow up in another year QUANTIFERON TB GOLD Related Medications hydrocortisone 2.5 % ointment Apply topically 2 (two) times a day Apply thin layer to affected areas of the face bid prn for flares betamethasone dipropionate 0.05 % cream Apply to affected areas, up to twice a day when flared, do not use one the face, groin, or underarms, 30 day supply Taltz 80 MG/ML injection Inject 1 mL (80 mg) under the skin every 28 (twenty-eight) days 2. Encounter for long-term (current) use of medications Related Procedures QUANTIFERON TB GOLD Next Visit: 1 year documented in this encounter [facility] 01-07-2024 Hospital Discharge instructions Patient Education 01/07/2024 [...] treatment? Where to find more information [employer] [place] [employer]: www.cancer.org [employer] [employer]: www.auanet.org Contact a health care [...] provider. Document Revised: 09/12/2021 Document Reviewed: 09/12/2021 [employer] Patient Education 2023 [employer]. Follow Up Care 07/02/2023 10:58:48 With:SOFIYA MAGANA, Sharla Layton, URL Address: [facility] [address] [place] [phone] When: Unknown Comments:1 yr w/ PSA [facility] 01-07-2024 Note Patient Education Oncology Prostate [...] Where to find more information ? The [place] [employer]: www.cancer.org ? [place] [employer]: www.auanet.org Contact a health care [...] of the rectum. (more content not included)... [facility] 07-31-2023 History of Present illness Narrative Subjective Patient ID: Zander Ponce is a 67 y.o. male. MURIEL Payne presents to the office for sick visit. He reports he has been having a lot of pressure behind his eyes and reports he has had a new constant headache. He reports the headache started 07/24/2023 affecting the right side of his head. He describes this pressure as a 10 out of 10 pain that caused light sensitivity and nausea. He reports the headache improved a little the next day, pain went down to a 5, but he went to the eye doctor to be evaluated and everything was negative, he was told eye pressure was negative. Eye doctor recommended he go to the ED to be evaluated for temporal arteritis. He went to ED on 07/26/2023 and work up was negative, this included CT of the head which was negative. Pain continues and has been constant, however, pain is currently about a 3 or 4. The pain is constantly about a 2, but exacerbates intermittently, without known cause. He reports the headache/pressure mostly effects that right side of the head/face (behind the right eye and mosque area). He has been taking tylenol and Excedrin migraine relief with minimal relief. He was also given Tizanidine for the eye pain from the ED, but this made no difference. Denies fever, chest pain, shortness of breath, myalgia, syncope, new blurred vision, weakness, tingling or numbness. He reports that he has had some blurred vision, but he is following with the eye doctor about this as this may be age related. I discussed possibly needing to complete MRI of the brain d/t new onset daily persistent headache greater than 50 years of age. He states he had MRI of the brain completed years ago d/t tingling and numbness on the left side of the face, but was negative. He also is no longer having that issue. I do not see the MRI in our records. He states it was completed in [place], in an office on [address] Lokesh also reports he has also been having nasal drainage that seems to be going down the throat. And pressure to the right side of his face. He also reports about 10 years ago he had a clogged gland that causes him have excessive tearing of the eyes as this causes dry eyes. The following portions of the patient's history were reviewed and updated as appropriate: allergies, current medications, past family history, past medical history, past social history, past surgical history, and problem list. Review of Systems Constitutional: Negative for chills, diaphoresis, fatigue, fever and unexpected weight change. HENT: Positive for congestion. Eyes: Positive for photophobia, pain and visual disturbance. Negative for redness. Respiratory: Negative. Cardiovascular: Negative. Gastrointestinal: Negative. Skin: Negative. Neurological: Positive for headaches. Psychiatric/Behavioral: Negative. Objective Physical Exam Vitals and nursing note reviewed. Constitutional: General: He is not in acute distress. Appearance: Normal appearance. He is well-developed. He is not ill-appearing. HENT: Head: Normocephalic and atraumatic. Right Ear: Tympanic membrane, ear canal and external ear normal. Left Ear: Tympanic membrane, ear canal and external ear normal. Nose: Right Sinus: Maxillary sinus tenderness present. Mouth/Throat: Pharynx: Oropharynx is clear. Eyes: Extraocular Movements: Extraocular movements intact. Conjunctiva/sclera: Conjunctivae normal. Pupils: Pupils are equal, round, and reactive to light. Neck: Vascular: No carotid bruit. Cardiovascular: Rate and Rhythm: Normal rate and regular rhythm. Pulses: Normal pulses. Heart sounds: Normal heart sounds. No murmur heard. Pulmonary: Effort: Pulmonary effort is normal. No respiratory distress. Breath sounds: Normal breath sounds. No stridor. No wheezing, rhonchi or rales. Chest: Chest wall: No tenderness. Abdominal: General: Bowel sounds are normal. Palpations: Abdomen is soft. Musculoskeletal: General: Normal range of motion. Cervical back: Normal range of motion and neck supple. No rigidity or tenderness. Right lower leg: No edema. Left lower leg: No edema. Lymphadenopathy: Cervical: No cervical adenopathy. Skin: General: Skin is warm and dry. Capillary Refill: Capillary refill takes less than 2 seconds. Findings: No erythema or rash. Neurological: General: No focal deficit present. Mental Status: He is alert and oriented to person, place, and time. Psychiatric: Mood and Affect: Mood normal. Behavior: Behavior normal. Assessment/Plan [place] ED note reviewed. I discussed possibly needing to complete MRI of the brain d/t new onset daily persistent headache greater than 50 years of age. However, he would like to see if we can take care of his nasal drainage first and see if this makes a difference. I will treat possible maxillary sinusitis with steroid pack, Flonase, and daily antihistamine. If symptoms do not improve I will order MRI for new deaily persistent headache. SABA PRN. Lokesh was seen today for headache. Diagnoses and all orders for this visit: New daily persistent headache Tenderness over maxillary sinus Post-nasal drip Other orders - methylPREDNISolone (MEDROL, CRISTIAN,) 4 mg tablet; Take 1 tablet (4 mg total) by mouth in the morning. follow package directions. SETH Shetty 08/01/23 0946 documented in this encounter [facility] 07-31-2023 Miscellaneous Notes Addended by: JORDAN FRANCISCO on: 08/01/2023 09:46 AM Modules accepted: Level of Service documented in this encounter [facility] 07-31-2023 Note Addended by: JORDAN FRANCISCO on: 08/01/2023 09:46 AM Modules accepted: Level of Service [facility] 07-02-2023 Hospital Discharge instructions Patient Education [...] treatment? Where to find more information [employer] [place] [employer]: www.cancer.org [employer] [employer]: www.auanet.org Contact a health care [...] provider. Document Revised: 09/12/2021 Document Reviewed: 09/12/2021 [employer] Patient Education 2022 [employer]. Follow Up Care 01/08/2023 10:36:36 With:SOFIYA MAGANA, Sharla Layton, URL Address: [facility] [address] , [place] [address]- [phone] When: Unknown Comments:6 mos w/ PSA [facility] 05-23-2023 History of Present illness Narrative Images from the original note were not included. [facility] [address] [facility] [phone] CONSULT NOTE Zander Ponce 67 y.o. CHIEF [...] and does not rest. He also plays [email or web address] 2 times a week. He is very [...] COLONOSCOPY COLONOSCOPY N/A 11/27/2022 Performed by Jeana Currie DO at [facility] COLONOSCOPY N/A 01/07/2018 Performed by Jeana Currie DO at [facility] FINGER SURGERY [...] patient/family/caregiver Referring and communicating with other health neonatal critical care nurse No primary diagnosis found. Jeana Currie DO This note was created with the assistance of a speech recognition program. While intending to generate a timely document that accurately reflects the content of the visit, no guarantee can be provided that every grammatical or spelling mistake has been or will be identified or corrected. Thank you for your understanding. documented [facility] History of Present illness Narrative Images from the original note were not included. [address] [place] [id number] Patient: Zander Ponce Date of : [...] or gangrene - Ultrasound scrotum; Future - [facility] General Surgery - [place] - [place], [place]; Future 67-year-old gentleman who has recently had a colonoscopy completed by Dr. Potts. Will refer to Dr. Currie consideration for surgical intervention. KEERTHI GILL MD Family Medicine Physician [facility] 04/24/23 This note was completed with voice recognition software. The document was reviewed for errors however some may still be present. Please do not hesitate to contact/[facility] the author to verify any questions/concerns. documented in this encounter [facility]23 History of Present illness Narrative Date of Call: April 04, 2023 Date of Positive Fall Risk Screenin03/22/2023 PT Referral Placed by PCP: No Result of Call: Answered Patient consent to enroll in Program: No Status of PT Referral: Patient declined Goals: Resources Provided: Additional Comments: Patient completed fall risk screening but declines program participation. documented in this encounter [facility]-09[facility]2022 Hospital Discharge instructions Patient Education 10/09/2022 [...] Follow these instructions at home: Medicines Take tkcl-qox-otytevx and prescription medicines only as told by [...] or the blood stops without treatment. Take cbqe-thy-ebjdbnv and prescription medicines only as told by your health care provider. Drink enough fluid to keep your urine pale yellow. This information is not intended to replace advice given to you by your health care provider. Make sure you discuss any questions you have with your health care provider. Document Revised: 11/17/2020 Document Reviewed: 11/17/2020 [employer] Patient Education 2022 [employer]. Follow Up Care 10/02/2022 10:55:28 With:SOFIYA MAGANA, Sharla Layton, URL Address: [facility] [address] , [place] [phone] When:Within 3 Month(s) [facility] [place] 08-29-2022 Hospital Discharge instructions Patient [...] including vitamins, herbs, eye drops, creams, and mqli-and-iectlit medicines. Any problems you or family members [...] provider tells you to take them. Taking nsdb-qxr-bmzsiao medicines, vitamins, herbs, and supplements. Surgery safety [...] provider. Document Revised: 12/13/2021 Document Reviewed: 12/13/2021 [employer] Patient Education 2022 [employer]. Follow Up Care 08/24/2022 09:38:00 With:SOFIYA MAGANA, Sharla Layton, URL Address: [facility] [address] , [place] [address]- Business (1) When: Unknown [facility] 05-01-2022 Hospital Discharge instructions Patient Education 05/01/2022 [...] include: ?Spinach. ?Rhubarb. ?Beets. ?Potato chips and monegasque fries. ?Nuts. If you regularly take a diuretic medicine, make sure to eat at least 1 2 fruits or vegetables high in potassium each day. These include: ?Avocado. ?Banana. ?Inyo, prune, carrot, or tomato juice. ?Baked potato. [...] Casseroles. Pizza. Lasagna. Frozen meals. Potato chips. Albanian fries. Summary You can reduce your risk [...] 07/14/2011 Document Revised: 07/09/2019 Document Reviewed: 02/27/2017 [employer] Patient Education 2020 [employer]. Follow Up Care 10/28/2021 11:17:16 With:SOFIYA MAGANA, Sharla R, URL Address: [facility] [address] [place] [address]- When: Unknown [facility] 04-19-2022 Hospital Discharge instructions Patient Education 04/19/2022 13:43:01 Kidney Stones, Fhcx-oh-Jcaw Kidney Stones Kidney stones are rock-like masses [...] Follow these instructions at home: Medicines Take zqzc-hxj-wxwifrn and prescription medicines only as told by [...] 08/05/2019 Document Reviewed: 08/05/2019 Elsevier Patient Education 2020 [employer] Follow Up Care 04/17/2022 09:12:19 With:SOFIYA MAGANA, Sharla Layton, URL Address: [address] [place] [address] [place] [address]- When: Unknown [facility] 10-28-2021 Hospital Discharge instructions Patient Education [...] one of these risk factors: ?Being of -[place] descent. ?Having a family history of prostate [...] you: Are older than age 55. Are -[place]. Have a father, brother, or uncle who [...] 12/28/2017 Document Revised: 03/01/2018 Document Reviewed: 12/28/2017 [employer] Patient Education 2020 [employer] Inc. Follow Up Care 08/17/2021 11:01:21 With:SOFIYA MAGANA, Sharla Layton, URL Address: [facility] [address], [place] [address]- [phone] When:Within 6 Month(s) Comments:w/ PSA and JASON [facility] [place] 08-16-2021 Hospital Discharge instructions Patient [...] one of these risk factors: ?Being of -[place] descent. ?Having a family history of prostate [...] you: Are older than age 55. Are -[place]. Have a father, brother, or uncle who [...] 12/28/2017 Document Revised: 03/01/2018 Document Reviewed: 12/28/2017 [employer] Patient Education 2020 [employer]. Follow Up Care 06/27/2021 09:31:40 With:Sahrla MONTIEL MD, URL Address: [facility] [address], [place] [address]- When:10/17/2021 [facility] Evaluation + Plan note Future Appointments Appointment Date:10/28/2021 09:45:00 AM Scheduled Provider:[facility]EL MD [facility]O Office Visit Diagnostic Tests PendingPSA Total 08/17/21 [facility] Evaluation + Plan note Future Appointments Appointment Date:05/01/2022 09:15:00 AM Scheduled Provider:Sharla MONTIEL MD Location:[facility] [place] Appointment Type:URO Office Visit Diagnostic Tests PendingPSA Total 10/28/21 [facility] Evaluation + Plan note Future Appointments Appointment Date:05/01/2022 09:15:00 AM Scheduled Provider:Sharla MONTIEL MD Location:[facility] [place] Appointment Type:URO Office Visit Diagnostic Tests PendingCalculi Analysis Urinary 10/28/21 [facility] Evaluation + Plan note Future Appointments Appointment Date:05/01/2022 09:15:00 AM Scheduled Provider:[facility]EL [facility] Evaluation + Plan note Future Appointments Appointment Date:10/30/2022 10:30:00 AM Scheduled Provider:Sharla MONTIEL MD Location:[facility] Appointment Type:URO Office Visit Diagnostic Tests PendingPSA Total 05/01/22 [facility] Evaluation + Plan note Future Appointments Appointment Date:10/30/2022 10:30:00 AM Scheduled Provider:Sharla MONTIEL MD Location:[facility] Appointment Type:URO Office Visit [facility] Evaluation + Plan note Future Appointments Appointment Date:02/05/2023 11:30:00 AM Scheduled Provider:Sharla MONTIEL MD Location:[facility] Appointment Type:URO Office Visit [facility] Evaluation + Plan note Future Appointments Appointment Date:01/08/2023 09:30:00 AM Scheduled Provider:Sharla MONTIEL MD Location:[facility] Appointment Type:URO Office Visit [facility] Evaluation + Plan note Future Appointments Appointment Date:01/07/2024 11:15:00 AM Scheduled Provider:Sharla MONTIEL MD Location:[facility] Appointment Type:URO Office Visit Diagnostic Tests PendingPSA Total 07/02/23 [facility] Evaluation + Plan note Future Appointments Appointment Date:01/09/2025 10:45:00 AM Scheduled Provider:Sharla MONTIEL MD Location:[facility] Appointment Type:URO Office Visit Diagnostic Tests PendingPSA Total 01/07/24 [facility] Evaluation + Plan note Future Appointments Appointment Date:01/09/2025 10:45:00 AM Scheduled Provider:Sharla MONTIEL MD [facility]O Office Visit [facility] Evaluation note No assessment inform ation available [facility] Work Phone: Evaluation note Diagnosis Psoriasis vulgaris (CMS/HCC)- Primary Other psoriasis Encounter for long-term (current) use of medications Encounter for long-term (current) use of other medications documented in this encounter [facility] HealthcareEvaluation note* Diagnosis Palpitation- Primary Palpitations Dyspnea on exertion Other dyspnea and respiratory abnormality [facility] Diagnosis Pharyngitis, unspecified etiology- Primary [facility] this [facility]* Diagnosis New daily persistent headache- Primary Tenderness over maxillary sinus Post-nasal drip Postnasal drip documented in this encounter [facility]* Diagnosis Non-recurrent unilateral inguinal hernia without obstruction or gangrene- Primary Flank pain Abdominal pain, unspecified site [facility] this [facility]* Diagnosis Acute epididymitis- Primary Other orchitis, epididymitis, and epididymo-orchitis, without mention of abscess Non-recurrent unilateral inguinal hernia without obstruction or gangrene Epididymitis Unspecified orchitis and epididymitis documented [facility]* Diagnosis Herpes zoster without complication- Primary documented in this encounter [facility] Healthcare[facility] note* Diagnosis Herpes zoster without complication- Primary documented in this encounter [facility]* Diagnosis Encounter for Medicare annual wellness exam- Primary Constipation, unspecified constipation type Benign prostatic hyperplasia, unspecified whether lower urinary tract symptoms present documented in this [facility] Narrative No data available for this section [facility] Hospital Discharge instructions No data available for this section [facility] on filedocumented in this encounter [facility] filedocumented in this encounter [facility] on filedocumented in this encounter [facility] on filedocumented in this encounter [facility] filedocumented in this encounter [facility] No data available for this section [facility] [place] reason for referral (narrative)* Consultation (Routine) - Authorized Specialty Diagnoses / Procedures Referred By Kirstin abdalla Referred To Contact General Surgery Diagnoses Non-recurrent unilateral inguinal hernia without obstruction or gangrene Keerthi Gill MD [address], [place] [address] Jeana Currie DO [address] [place] [address] Referral ID Status Reason Start Date Expiration Date Visits Requested Visits Authorized [id number] Authorized Specialty Services Required 04/24/2023 04/23/2024 1 1 [facility] Summary Purpose Family History No Family History Records FoundNo Family History Records FoundNo Family History Records Found No data available for this section No data available for this section No [...] Visit Chief Complaint R29.810 Chief Complaint r97.20 Chief Complaint Admit Date left ear pain, sinus congestion May 27, 2024 1:45pm Additional Source Comments (unrecognized sect ion and content) No Status Records FoundNo Status Records FoundNo Status Records FoundNo Status Records FoundNo Status Records FoundNo Status Records FoundNo Status Records FoundNo Status Records Found INFORMATION SOURCE (unrecogn ized section and content) DATE CREATED AUTHOR 03/10/2019 [facility] DATE CREATED AUTHOR AUTHOR'S ORGANIZ ATION 06/04/2021 [facility] dical Specialist DATE CREATED AUTHOR AUTHOR'S ORGANIZ ATION 09/10/2022 [facility] DATE CREATED AUTHOR AUTHOR'S ORGANIZ ATION 04/10/[address] [facility] DATE CREATED AUTHOR AUTHOR'S ORGANIZ ATION 06/02/2024 [facility] DATE CREATED AUTHOR AUTHOR'S ORGANIZ ATION 06/03/2024 [facility] dical Specialists EPIC DATE CREATED AUTHOR AUTHOR'S ORGANIZ ATION 07/21/2024 [facility] DATE CREATED AUTHOR AUTHOR'S ORGANIZ ATION 09/06/[address] [facility] Care Team (unrecognized sect ion and content) Personnel Name: MONICA PARHAM DO Team Status: Active Member Role Status Dates NON STAFF Primary Care Provider Active Team Status: Active Member Role Status Dates NON STAFF Primary Care Provider Active Start: March 30, 2024 Yefri Izquierdo DO Attending Provider Active Sta rt: March 30, 2024 Team Status: Inactive Member Role Status Dates NON STAFF Primary Care Provider Active Start: May 27, 2024 End: May 27, 2024 Estephania Quan APRN Attending Provider Active Start: May 27, 2024 End: May 27, 2024 Team Status: Inactive Member Role Status Dates Krishna Solorio DO Attending Provider Active Monica Parham DO Primary Care Provider Active Team Status: Active Member Role Status Dates Monica Parham DO Primary Care Provider Active Team Status: Inactive Member Role Status Dates Sharla Montiel MD Attending Provider Active St art: July 30, 2023 End: July 30, 2023 NON STAFF Primary Care Provider Active Start: July 30, 2023 End: July 30, 2023 Facility Examiner Relationship Specialty Start Date End Date Unallocated, Beth Hernandez MD [facility] [place] [address] PCP - General Family Medicine 03/22/23 Facility Examiner Relationship Specialty Start Date End Date Unallocated, MD Lexx Aguil[facility] [place] [address] PCP - General Family Medicine 03/22/23 Facility Examiner Relationship Specialty Start Date End Date Keerthi Gill MD [address] [place] [address] PCP - General Internal Medicine 03/22/23 Facility Examiner Relationship Specialty Start Date End Date Keerthi Gill MD [address] [place] [address] PCP - General Internal Medicine 03/22/23 Facility Examiner Relationship Specialty Start Date End Date Keerthi Gill MD [address] [place] [address] PCP - General Internal Medicine 03/22/23 Facility Examiner Relationship Specialty Start Date End Date Keerthi Gill MD [address] [place] [address] PCP - General Internal Medicine 03/22/23 Facility Examiner Relationship Specialty Start Date End Date Keerthi Gill MD [address] [facility] [address] PCP - General Internal Medicine 03/22/23 Facility Examiner Relationship Specialty Start Date End Date Unallocated, Noms MD Mary [address] [place] [address] PCP - General Family Medicine 03/22/23 Facility Examiner Relationship Specialty Start Date End Date Keerthi Gill MD [address] [facility] [place] [address] PCP - General Internal Medicine 03/22/23 Facility Examiner Relationship Specialty Start Date End Date Keerthi Gill MD [address] [facility] [place] [address] PCP - General Internal Medicine 03/22/23 Goals (unrecognized section and content) Goals may be documented in a n alternate section Reason for Visit (unrecogniz ed section and content) Reason Comments Follow-up Reason Comments Follow-up Almost passed out pl aying racket ball Reason Comments Sore Throat Reason Comments Headache RT side Reason Comments Hernia Left side groin area , noticed 6 weeks ago Reason Comments Hernia Unilateral inguinal hernia, referred by Dr. Gill Specialty Diagnoses / Procedures Referred By Kirstin abdalla Referred To Contact General Surgery Diagnoses Non-recurrent unilateral inguinal hernia without obstruction or gangrene Keerthi Gill MD [address], [place] [address] Jeana Currie DO [address] [place] [address] Referral ID Status Reason Start Date Expiration Date Visits Requested Visits Authorized [id number] Pending Review Specialty Services Required 04/24/2023 04/23/2024 1 1 Reason Comments Rash Reason Comments Follow-up Shingles in left ear Reason Comments wellness FOR RECORDS PERTAINING TO PATIENTS WHO ARE [...] BE BASED ON THE PRIMARY CLINICAL RECORDS. [facility]. provides no warranty or guarantee of the accuracy or completeness of information in this document.
== END 2024-09-09 08:10 | disposition home or self-care (01) ==
PROVIDERS: PCP Student in an Organized Health Care Education/Training Program; Visit Provider Urology
DX: N20.0 Calculus of kidney (principal); R10.9 Unspecified abdominal pain; N28.1 Cyst of kidney, acquired
CPT/HCPCS: 76775

== ENCOUNTER 2024-12-26 08:48 | Outpatient (OUT) | payer MEDICARE, OTHER, SELFPAY ==
--- OUTSIDE RECORDS SUMMARY | 2024-12-26 08:53 | XMS_ITS | CCD ---
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 Name Role Phone MONICA PERSAUD Primary Care Physician Unavailab DO Krishna Beasley Attending Provider DO Monica Persaud Primary Care Provider [phone] SOFIYA ., DR MAGDALENO Admitting Unavailable ARRIAZA ., DR MAGDALENO Consulting Unavailable ARRIAZA ., DR MAGDALENO Attending Unavailable HERNÁNDEZWINTER BEE Consulting Unavailable REQUEST, DR NONE LISTED Consulting Unavaila ble ARRIAZA ., DR MAGDALENO Admitting Unavailable MISC, DR HOWARD Primary Care Unavailable ARRIAZA ., DR MAGDALENO Consulting Unavailable ARRIAZA ., DR MAGDALENO Attending Unavailable HERNÁNDEZ, WINTER Consulting Unavailable ARRIAZA ., DR MAGDALENO Admitting Unavailable REQUEST, DR NONE LISTED Primary Care Unavaila ble ARRIAZA ., DR MAGDALENO Consulting Unavailable ARRIAZA ., DR MAGDALENO Attending Unavailable ZIPAUL, DR [...] Unavailable MISC, DR HOWARD Primary Care Unavailable ARRIAZA ., DR MAGDALENO Admitting Unavailable ARRIAZA ., DR MAGDALENO Consulting Unavailable ARRIAZA ., DR MAGDALENO Attending Unavailable PEDRO IISHANIA Consulting Unavailable CLEOPARTA DAVIDSON Consulting Unavailable SARAVANANC, DR HOWARD Primary [...] DR JOHANNA Layton Consulting Unavailable MD Sharla Arriaza Attending Provider NON STAFF Primary Care Provider Unavailcallie e NON STAFF Primary Care Unavailable Sharla Arriaza Attending Unavailable Sharla Arriaza Admitting Unavailable Unallocated , Noms Provider Primary Care Gaeli sammy Jose Alfredo Keerthi MAGANA Primary Care Provider [phone] JOSE ALFREDO, MUHAMID M Primary Care Unavailable ISIDRO AVILEZ Attending Unavailable JORDAN LOPEZ Attending Unavailable JOSE ALFREDO, MUHAMID M Referring [...] JOSE ALFREDO, MUHAMID M Primary Care Unavailable JEANA HERNANDEZ Attending Unavailable JOSE ALFREDO, MUHAMID M Referring Unavailable JOSE ALFREDO, MUHAMID M Primary Care Unavailable Jose Alfredo Keerthi MAGANA Primary Care Provider [phone] VANNESA REYES Attending Unavailable VANNESA REYES Attending Unavailable VANNESA REYES Attending Unavailable Sharla ARRIAZA Attending Unavailable CORI, MONICA Primary Care Unavailable Sharla ARRIAZA Attending Unavailable CORI, MONICA Primary Care Unavailable CORI, MONICA Primary Care Unavailable Sharla ARRIAZA Attending Unavailable CORI, MONICA Primary Care Unavailable Estephania Brown Attending Unavailable CORI, MONICA Primary Care Unavailable Estephania Brown Attending Unavailable Estephania Brown Admitting Unavailable CORI, MONICA Primary Care Unavailable Sharla ARRIAZA Attending Unavailable CORI, MONICA Primary Care Unavailable Sharla ARRIAZA Attending Unavailable Allergies Allergy Classification Reported Allergen(s) Allergy Type Date of Onset Reaction(s) Facility (14 sources) Sulfamethoxazole / Trimethoprim; Translations: [sulfamethoxazole-t rimethoprim] Drug Allergy Unknown (qualifier value) [facility] (14 sources) Sulfonamides (Antibiotic); Translations: [sulfa drugs] Drug allergy Itching (finding), Weal (disorder) [facility] (1 source) Sulfonamides (Antibiotic) Drug allergy (disorder) 08-23-19 [facility] Repository (3 sources) Sulfonamides (Antibiotic); Translations: [SULFA (SULFONAMIDE ANTIBIOTICS)] Drug allergy (disorder) 09-22-19 [facility] Repository (16 sources) Sulfonamides (Antibiotic) Drug Intolerance 09-22-19 17 Hives [facility] Medications Current Medications Medication Drug Class(es) Dates Sig (Normalized) Sig (Original) 1 ML risankizumab-rzaa 150 MG/ML Auto-Injector [Skyrizi] (2 sources) Start: 09-08-2024 Skyrizi Pen 150 mg/mL subcutaneous [...] mg / clavulanate 125 mg oral tablet (6 sources) Penicillin-class Antibacterial Start: 05-27-2024 take 1 tablet by mouth every twelve hours amoxicillin-clavul anate (Augmentin) 875-125 MG tablet Take 1 tablet by mouth every 12 (twelve) hours 05/27/2024 Active Start: 05-27-2024 take 1 tablet by gisella th every twelve hours Amoxicillin-Pot Clavulanate 875-125 mg tablet Active 1 TAB PO Every 12 hours 19 01May 27, 2024 12:00am betamethasone 0.5 mg/ml topical cream (8 sources) Corticosteroid Start: 04-06-2023 betamethasone dipropionate 0.05 % cream Indications: Psoriasis vulgaris Apply to affected areas, up to twice [...] by mouth in the morning. 0 Active docosahexaenoic acid/epa (FI SH OIL ORAL) (8 sources) take 3 capsules [...] day(s), # 28 cap(s), Refills(s) 0, Pharmacy: [facility]/pharmacy #[id number], 179, cm, 05/01/22 9:25:00 EST, Height/Length Dosing, 88, kg, 05/01/22 9:25:00 EST, Weight Dosing Start Date: 09/18/22 Stop Date: 10/02/22 Status: Ordered dutasteride 0.5 mg oral capsule (17 sources) 5-alpha Reductase Inhibitor Start: 10-09-2022 End: 07-21-2024 dutasteride (Avodart) 0.5 MG capsule Take 0.5 mg by mouth 10/09/2022 Active Fish Oils (14 sources) Start: 01-07-2024 take 2 capsules by [...] propionate 0.05 mg/actuat metered dose nasal spray (6 sources) Corticosteroid Start: 05-27-2024 fluticasone (F lonase) 50 MCG/ACT nasal spray 05/27/2024 Active Start: 05-27-2024 take 2 spray(s) nasa l route once daily fluticasone (Flonase) 50 MCG/ACT nasal spray INSTILL 2 SPRAYS INTO EACH NOSTRIL EVERYDAY FOR 30 DAYS 05/27/2024 Active Start: 05-27-2024 take 2 spray(s) nasa l route once daily Fluticasone Propionate (Flonase Allergy Relief) 50 mcg/actuation spray,suspension Active 2 SPRAY INTRANASAL Daily May 27, 2024 12:00am administer 2 spray into each nostril gabapentin 300 mg oral capsule (8 sources) Anti-epileptic Agent Start: 06-01-2024 End: 07-21-2024 gabapentin (Neurontin) 300 MG capsule Take by mouth 06/01/2024 Active Start: 06-01-2024 End: 06-04-2024 take 1 capsule [...] 1 day. 6 capsule 06/01/2024 06/04/2024 Active Glyc-Na Lact/Phos/Biphos-Potcl liquid (1 source) Start: 05-27-2024 Glyc-Na Lact/Phos/Biphos-Potcl liquid Active EACH MISCELLANE May 27, 2024 12:00am hydrocortisone 0.025 mg/mg topical ointment (8 sources) Corticosteroid Start: 04-06-2023 hydrocortisone 2.5 % ointment Indications: Psoriasis vulgaris Apply topically 2 (two) times a day Apply thin layer to affected areas of the face bid prn for flares 30 g 11 04/06/2023 Active levoFLOXacin 500 mg oral tablet (1 source) Quinolone Antimicrobial Start: 05-01-2022 End: 05-15-2022 take 1 tablet by mouth once daily Levaquin 500 mg Tab 500 mg = 1 tab(s), Oral, Daily, X 14 day(s), # 14 tab(s), Refills(s) 0, Pharmacy: [facility]/pharmacy #[id number], 179, cm, 05/01/22 9:25:00 EST, Height/Length Dosing, 88, kg, 05/01/22 9:25:00 EST, Weight Dosing Start Date: 05/01/22 Stop Date: 05/15/22 Status: Ordered [place] 1-Paz-Aji-Fish Oil (Fish Oil) 60-90-500 mg capsule (1 source) Start: 05-27-2024 take 1 capsule by mouth once daily [place] 3-Sht-Lxm-Fish Oil (Fish Oil) 60-90-500 mg capsule Active 1 CAP PO Daily May 27, 2024 12:00am omega-3 acid ethyl esters (skilled nursing) 1000 mg oral capsule (8 sources) Start: 09-14-2022 omega-3 acid ethyl esters (Lovaza) 1 g capsule 09/14/2022 Active Start: 09-14-2022 omega-3 acid e thyl esters (Lovaza) 1 g capsule TAKE 2 CAPSULES BY MOUTH TWICE A DAY DIRECTED 09/14/2022 Active polyethylene glycol 3350 34803 mg powder for oral solution (1 source) Osmotic Laxative Start: 07-21-2024 polyethylene glycol (GLYCOLAX) 17 gram packet Indications: Constipation, unspecified constipation type Take 17 g by mouth in the morning. 14 each 07/21/2024 Active potassium citrate 10 meq extended release oral tablet (20 sources) Start: 09-18-2022 potassium CITR ATE 10 mEq ER Tab 10 mEq, 1 tab(s), Oral, BID, 180 tab(s), Refill(s) 3, [id number], 178, cm, 07/02/23 9:59:00 EDT, Height/Length [...] Active Skyrizi Pen 150 MG/ML solution auto-injector (5 sources) Start: 04-10-2024 Skyrizi Pen 15 0 MG/ML solution auto-injector Indications: Plaque Psoriasis Inject 150 mg (contents of ONE pen) under the skin every 12 weeks 1 mL 4 04/10/2024 Active Taltz Autoinjector (2 sources) Start: 07-02-2023 Taltz Autoinje ctor mg, SubCutaneous, q4wk, Refills(s) 0 Start Date: 07/02/23 Status: Ordered tamsulosin hydrochloride 0.4 mg oral capsule (15 sources) alpha-Adrenerg ic Gaurang Start: 03-10-2024 take 1 capsule by mouth once daily tamsulosin 0.4 mg Cap 0.4 mg = 1 cap(s), Oral, Daily, # 30 cap(s), Refills(s) 0, Pharmacy: [facility]/pharmacy #[id number], 178, cm, 01/07/24 11:36:00 EDT, Height/Length Dosing, 90.2, kg, 01/07/24 11:36:00 EDT, Weight Dosing Start Date: 03/10/24 Status: Ordered Quantity: 30.0 Unit: cap(s) Repeat number: 1 Start: 05-30-2022 take 1 capsule by [facility] once daily tamsulosin 0.4 mg Cap 0.4 mg = 1 cap(s), Oral, Daily, # 90 cap(s), Refills(s) 3, Pharmacy: [facility]/pharmacy #[id number], 179, cm, 05/01/22 9:25:00 EST, Height/Length Dosing, 88, kg, 05/01/22 9:25:00 EST, Weight Dosing Start Date: 05/30/22 Status: Ordered Start: 06-13-2018 take 1 capsule by [facility] every twenty-four hours Tamsulosin 0.4 mg capsule Active 0.4 MG PO Q24H June 12, 2018 11:00pm Vitamin D3 (13 sources) Start: 08-17-2021 Vitamin D3 Ref ills(s) 0 Start Date: 08/17/21 Status: Ordered Repeat number: 1 Start: 08-17-2021 Vitamin D3 Ref ills(s) 0 Start Date: 08/17/21 Status: Ordered Zinc (9 sources) Start: 08-17-2021 take 1 mg by mouth o nce daily Zinc mg, Oral, Daily, Refills(s) 0 Start Date: 08/17/21 Status: Ordered Completed/Discontinued Medications Medication Drug Class(es) Dates Sig (Normalized) Sig (Original) ciprofloxacin 500 mg oral tablet (2 sources) Quinolone Antimicrobial Start: 12-24-2024 Cipro 500 mg Tab 500 mg = 1 tab(s), Oral, As Directed, Take one tab the day before the procedure. Then take the 2nd tab after the procedure has been completed., # 2 tab(s), Refills(s) 0, Pharmacy: [facility]/pharmacy #[id number], 178, cm, 12/24/24 8:54:00 EDT, Height/Length Dosing, 81.3, kg, 12/24/24 8:54:00 EDT, Weight Dosing Start Date: 12/24/24 Status: Ordered Quantity: 2.0 Unit: tab(s) Repeat number: 1 Indications: Gross hematuria; Start: 05-23-2023 End: 06-02-2023 take 1 tablet by mouth in the morning, then take 1 tablet by mouth at bedtime ciprofloxacin HCl (CIPRO) 500 mg tablet Take 1 tablet (500 mg total) by mouth in the morning and 1 tablet (500 mg total) before bedtime. Do all this for 10 days. 20 tablet 0 05/23/2023 06/02/2023 Active hydrOXYzine hydrochloride 10 mg oral tablet [...] the evening. 30 tablet 05/23/2023 07/21/2024 Discontinued 1 ml ixekizumab 80 mg/ml auto-injector (16 sources) Interleukin-17A Antagonist Start: 04-19-2023 End: 10-27-2024 inject 1 mL by subcutaneous injection once Taltz 80 MG/ML injection Indications: Psoriasis vulgaris Inject 1 mL (80 mg) under the skin every 28 (twenty-eight) days 1 each 04/19/2023 10/27/2024 Discontinued (Med list cleanup) Start: 10-17-2021 End: 07-21-2024 TALTZ AUTOINJECTOR 80 mg/mL auto-injector Inject 80 mg under the skin every 28 days. 10/17/2021 07/21/2024 Discontinued (Formulary change) methylPREDNISolone 4 mg oral tablet (5 sources) [...] Classification Problem Date Documented Da te Episodic/Chronic Adjustment disorders (8 sources) Adjustment disorder; Translations: [Adjustment disorder, unspecified] Onset: 11-08-2022 11-08-2022 Chronic Calculus of urinary tract (20 sources) History of calculus of kidney; Translations: [Personal history of urinary calculi] Onset: 08-16-2021 Episodic Disorders of lipid metabolism (8 sources) Mixed hyperlipidemia; Translations: [Mixed hyperlipidemia] Onset: 11-08-2022 11-08-2022 Chronic Genitourinary symptoms and ill-defined conditions (20 sources) Blood in urine; Translations: [Gross hematuria] Onset: 08-16-2021 Episodic Headache; including migraine (2 sources) New daily persistent headache; Translations: [New daily persistent headache (NDPH)] Onset: 07-31-2023 07-31-2023 Chronic Hyperplasia of prostate (20 sources) Benign prostatic hypertrophy with outflow obstruction; Translations: [Benign prostatic hyperplasia with lower urinary tract symptoms] Onset: 08-16-2021 Chronic Inflammatory conditions of male genital organs (1 source) Chronic prostatitis; Translations: [CHRONIC PROSTATITIS] Onset: 08-22-2022 Chronic Nutritional deficiencies (9 sources) Vitamin D deficiency; Translations: [Vitamin D deficiency, unspecified] Onset: 11-08-2022 11-08-2022 Chronic Osteoarthritis (20 sources) Arthritis; Translations: [Unspecified osteoarthritis, unspecified site] Onset: 07-17-2022 11-08-2022 Chronic Other aftercare (1 source) Other shelter (current) drug therapy; Translations: [OTH HALFWAY CURRENT DRUG THERAPY] Onset: 08-28-2022 Episodic Other aftercare (4 sources) Long-term current use of drug therapy; Translations: [Other shelter (current) drug therapy] 04-07-2024 Episodic Other connective tissue disease (1 source) Pain in right leg; Translations: [PAIN IN RIGHT LEG] Onset: 08-28-2022 Episodic Other diseases of bladder and urethra (1 source) Unspecified urethral stricture, male, unspecified site; Translations: [UNSP URETHRAL STRCT MALE UNSP SITE] Onset: 08-22-2022 Episodic Other diseases of kidney and ureters (4 sources) Urinary tract obstruction; Translations: [Other obstructive and reflux uropathy] Onset: 08-16-2021 Episodic Other gastrointestinal disorders (1 source) Constipation, unspecified; Translations: [Constipation, unspecified] Onset: 07-21-2024 Episodic Other gastrointestinal disorders (1 source) Constipation; Translations: [Constipation, unspecified] 07-21-2024 Episodic Other inflammatory condition of skin (13 sources) Psoriasis vulgaris; Translations: [Psoriasis vulgaris] Onset: 11-08-2022 11-08-2022 Chronic Other inflammatory condition of skin (8 sources) Psoriasis; Translations: [Psoriasis, unspecified] Onset: 11-08-2022 11-08-2022 Chronic Other lower respiratory disease (3 sources) Dyspnea on exertion; Translations: [Other forms of dyspnea] 04-11-2024 Episodic Other nervous system disorders (8 sources) Difficulty walking; Translations: [Difficulty in walking, [...] gangrene, not specified as recurrent] 04-24-2023 Episodic Abdominal pain (20 sources) Flank pain; Translations: [Unspecified abdominal pain] Onset: 08-22-2022 10-11-2018 Episodic Cardiac dysrhythmias (2 sources) Palpitations; Translations: [Palpitations] Onset: 04-11-2024 04-11-2024 Episodic Diabetes mellitus without complication (8 sources) Impaired glucose tolerance; Translations: [Impaired glucose tolerance (oral)] Onset: 11-08-2022 11-08-2022 Episodic Headache; including migraine (1 source) Headache Onset: 07-31-2023 Episodic Inflammatory conditions of male genital organs (20 sources) Prostatitis; Translations: [Epididymitis] Onset: 11-08-2022 02-07-2019 Episodic Miscellaneous mental health disorders (8 sources) Anxiety about body function or health; Translations: [Other symptoms and signs involving emotional state] Onset: 11-08-2022 11-08-2022 Episodic Mood disorders (8 sources) Mood disorders Onset: 03-22-2023 Resolved: 07-21-2024 03-22-2023 Nausea and vomiting (16 sources) Postoperative nausea and vomiting; Translations: [Nausea with vomiting, unspecified] Onset: 07-17-2022 11-08-2022 Episodic Other connective tissue disease (8 sources) Tendonitis of left patellar tendon; Translations: [Patellar tendinitis, left knee] Onset: 11-08-2022 11-08-2022 Episodic Other diseases of kidney and ureters (8 sources) Disorder of urinary tract; Translations: [Other obstructive and reflux uropathy] Onset: 11-08-2022 11-08-2022 Episodic Other injuries and conditions due to external causes (14 sources) Foreign body in bladder; Translations: [Foreign body in bladder, initial encounter] Onset: 08-29-2022 Episodic Other lower respiratory disease (1 source) Other forms of dyspnea; Translations: [Other forms of dyspnea] Onset: 04-11-2024 Episodic Other non-traumatic joint disorders (8 sources) Pain in left knee; Translations: [Pain in joint, lower leg] Onset: 11-08-2022 11-08-2022 Episodic Other upper respiratory disease (8 sources) Deviated nasal septum; Translations: [Deviated nasal septum] Onset: 11-08-2022 11-08-2022 Episodic Other upper respiratory disease (1 source) Tenderness over maxillary sinus; Translations: [Other specified disorders of nose and nasal sinuses] 07-31-2023 Episodic Spondylosis; intervertebral disc disorders; other back problems (20 sources) Backache; Translations: [Sciatica, right side] Onset: 07-17-2022 02-10-2019 Episodic Results Test Name Value Interpretation Reference Range Facility Ambulatory Visit Summaryon 0 12-24-2024 Ambulatory Visit Summary Ambulatory Visit Summary EMILIE PONCE :1955 Visit Date:12/24/2024 Ambulatory Visit Instructions Your Diagnosis Gross hematuria Elevated PSA Kidney stones BPH with urinary obstruction Other obstructive and reflux uropathy Your Care Team Attending Physician - Stephanie PEREZ, Estephania Primary Care Physician - MONICA PERSAUD DO This Is Your Medications List [...] signed up for this yet, please contact [employer] at [phone] to get signed up today. Language Information Language assistance services are available as needed. Normal [facility] Urology Office/Clinic Noteon 12-24-2024 Urology Office/Clinic Note Urology Office/Clinic Note Chief Complaint gross hematuria [...] blood, proteinuria, small bili Never smoker. 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 Denies family hx of urothelial CA. Denies flank pain or sx of infection. Discussed potential etiologies and implications of hematuria with patient. These include: Prostatic disease, trauma, Tumor, infection/inflammati on, stones, obstructive uropathy (urolithiasis, stricture, etc), nephritis, [...] urine for FISH) -Schedule [facility] at [facility]. Order placed. -Schedule cysto. The risks [...] completed., # 2 tab(s), Refills(s) 0, Pharmacy: [facility]/pharmacy #[id number], 178, cm, 12/24/24 8:54:00 EDT, Height/Length Dosing... CT Urogram 2. Elevated PSA (R97.20: Elevated prostate specific antigen [PSA]) PSA: 03/08/20 - 4.79 06/03/21 - 5.03 04/26/22 - 4.79 01/05/23 - 5.20 & 16.9% (Dutasteride 10.4) 06/29/23 - 4.13 (Dutasteride 8.26) Stopped Dutasteride 07/02/23. 01/04/24 - 7.17 MRI 03/10/19 at [facility] - negative. TRUS/bx 2008 - negative. Prostate [place]30[place] [facility] [place] -PSA due in December 2024 [...] Urnls Dip Stick Auto w/o Microscopy POC 72854 3. Kidney stones (N20.0: Calculus of kidney) KUB 10/05/21 - bilateral nephrolithiasis, R larger than L. S/p R ESWL 10/06/21. Passed stone on 10/09/21. Stone (more content not included)... Normal [facility] Comment on above: Result Comment: Elec tronically Signed By: Stephanie PEREZ, Estephania\.br\Date and Time Signed: 12/24/24 10:16 EDT Ambulatory Visit Summaryon 0 09-08-2024 Ambulatory Visit Summary Ambulatory Visit Summary LOKESH PONCE :1955 Visit Date:09/08/2024 Ambulatory Visit Instructions Your Diagnosis Kidney stones Right flank pain Elevated PSA BPH with urinary obstruction Tests Performed US Renal -- Results Pending -- Please visit your patient portal for your results or contact your primary care physician. Your Care Team Attending Physician - Sharla ARRIAZA MD Primary Care Physician - MONICA PERSAUD DO This Is Your Medications List [...] Appointments Sunday 10:45 AM EDT With: Sharla ARRIAZA MD Where: [facility] [address] [place] [address]- You Need to Schedule the Following Appointments Follow Up with Sharla ARRIAZA MD, URL When: Where: [facility] [address], [place] [address]- Medications What How Much When Instructions Unchanged [...] deli foods. These can be high in sodiu (more content not included)... Normal [facility] Urology Office/Clinic Noteon 09-08-2024 Urology Office/Clinic Note Urology Office/Clinic Note Chief Complaint F/u with [...] and history for this patient from Dr. Arriaza. I have reviewed and verified the staff [...] unable to view this image through the [facility] portal. He did not have any [...] 07/02/23. 01/04/24 - 7.17 MRI 03/10/19 at [facility] - negative. TRUS/bx 2008 - negative. Prostate MRI 07/30/23 [facility] [place] Neg. Follow up 01/09/25 for 1 yr with PSA or sooner if needed. Pt understands and agrees with plan. -PSA due in December 2024 4. BPH with urinary obstruction (N40.1: Benign prostatic hyperplasia with lower urinary tract symptoms) S/p TURP 08/17/22 - chronic prostatitis. And TURP 09/06/16 and 04/21/10. Prostate MRI 07/30/23 [facility] [place] Prostate volume 89 mL. UA neg. IPSS 8. No BPH meds. Follow-up With When Contact Information Sharla ARRIAZA MD, URL [facility] [address], [place] [address]- Additional Instructions: Schedule CHET, will call pt with results then 01/09/25 for 1 yr with PSA F&T Patient Education Dietary Guidelines to Help Prevent Kidney Stones Bibiana Dolan, personally scribed for Dr. Arriaza on 09/08/2024 16:04:39. . Documentation recorded by the scribBibiana martin, accurately reflects the services(s) I performed and decisions made by me. Authenticated by Dr. Arriaza on 09/08/2024 16:09:10. (more content not included)... Normal [facility] Comment on above: Result Comment: Elec tronically Signed By: Sharla ARRIAZA MD\.br\Date and Time Signed: 09/08/24 16:09 EDT\.br\Electronically Co-Signed By: Bibiana Yost\.br\Date and Time Co-Signed: 09/08/24 16:05 EDT POCT rapid strep Aon 025 Internal Coater Check Completed and Passed Yes [facility] S. pyogenes Ag IA Ql (Unsp spec) Negative Negative [facility] Ambulatory Visit Summaryon 1 Ambulatory [...] Your Care Team Attending Physician - Sharla ARRIAZA MD Primary Care Physician - MONICA PERSAUD DO This Is Your Medications List [...] Appointments Sunday 10:45 AM EDT With: Sharla ARRIAZA MD Where: [facility] [place] [address]- You Need to Schedule the Following Appointments Follow Up with Sharla ARRIAZA MD, URL When: Comments: 1 yr w/ PSA Where: [facility] [address] [place] [address]- [phone] Medications What How Much When Instructions Unchanged [...] recommend t (more content not included)... Normal [facility] Urology Office/Clinic Noteon 01-07-2024 Urology Office/Clinic [...] and history for this patient from Dr. Arriaza. I have reviewed and verified the staff [...] 07/02/23. 01/04/24 - 7.17 MRI 03/10/19 at [facility] - negative. TRUS/bx 2008 - negative. Prostate MRI 07/30/23 [facility] [place] Neg. PSA has decreased from prior. No indication for further intervention, will cont to monitor. -F/u in 1 yr w/ PSA, LOGNA 2. 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 S/p TURP 08/17/22 - chronic prostatitis. Prostate MRI 07/30/23 [facility] [place] Prostate volume 89 mL. Stopped Dutasteride [...] asx. Follow-up With When Contact Information Sharla ARRIAZA MD, URL [facility] [address], [place] [facility] [place] [address]- [phone] Additional Instructions: 1 yr w/ PSA Patient Education Prostate Cancer Screening Marilu Dolan, personally scribed for Dr. Arriaza on 01/07/2024 12:40:47. . Documentation recorded by the scribeMarilu, accurately reflects the services(s) I performed and decisions made by me. Authenticated by Dr. Mitchell (more content not included)... Normal [facility] Comment on above: Result Comment: Elec tronically Signed By: Sharla ARRIAZA MD\.br\Date and Time Signed: 01/07/24 12:43 EDT\.br\Electronically Co-Signed By: Marilu Meng\Cassidybr\Date and Time Co-Signed: 01/07/24 12:41 EDT ISTAT XRay CREon 07-30-2023 ISTAT GFR > 60.0 Normal [facility] [facility] Comment on above: Result Comment: PERF ORMED BY: [place] [address] PATHOLOGIST JAVA APPLICATION DEVELOPER TRENT STEWART M.D. Performed By: #### I SCRE #### [address] MR prostate wo/w conon 07-29 MR prostate wo/w con [facility] Main [place] [address] [place] [address] MRI Report Signed Patient: Emilie Ponce MR#: [id number] : 1955 Acct:[id number] Age/Sex: 67 / M ADM Date: 07/30/23 Loc: MR Room: Type: [facility] Attending Dr: Sharla Arriaza MD Copies to: Sharla Arriaza MD Ordering Provider: Sharla Arriaza MD Date of Service: 07/30/23 MR/MR prostate [...] Ayala Jr., D.O.07/30/2023 6:41 PM Dictation Location: [place] [address] Transcribed By: [facility] 07/30/231840 Dictated By: Terrell Ayala Jr, DO 07/30/231837 Signed By: 07/30/231840 Normal [facility] No Panel InformationOrdered By: Sharla Arriaza on 07-30-2023 Bedside Estimated GFR (eGFR) > 60.0 [facility] Whole blood creatinine measu rementOrdered By: Sharla Arriaza on 07-30-2023 Creatinine [Mass/Vol] 1.3 mg/dL Normal 0.6-1.3 [facility] Comment on above: ER/ESD physician is notified/shown all ISTAT results.Critical values may be confirmed by laboratory testing ifdeemed necessary by ER attending doctor. Result Comment: ER/E SD physician is notified/shown all ISTAT results. Critical values may be confirmed by laboratory testing if deemed necessary by ER attending doctor. Performed By: #### I SCRE #### [facility] [address] [place] LELIA DOP LEG RTon 08-26-19 US [...] by: GIOVANNY ZAYAS Date: 2022-08-25 15:47 Normal [facility] PROF CHEM 8 (BAS METB)on Anion gap [Moles/Vol] 7.8 mmol/L Normal [facility] Comment on above: Performed By: #### B MP ####[facility] [address] [place] [address]Dr. Leeanna Carlson Calcium [Mass/Vol] 9.1 mg/dL Normal 8.5-10.1 [facility] Comment on above: Performed By: #### B MP ####[facility] [address] [place] [address]Dr. Leeanna Carlson Chloride [Moles/Vol] 105 mmol/L Normal 98-107 [facility] Comment on above: Performed By: #### B MP ####[facility] [address] [place] [address]Dr. Leeanna Carlson CO2 [Moles/Vol] 28.6 mmol/L Normal 21.0-32.0 [facility] Comment on above: Performed By: #### B MP ####[facility] [address] [place] [address]Dr. Leeanna Carlson Creatinine [Mass/Vol] 1.18 mg/dL Normal 0.70-1.30 [facility] Comment on above: Performed By: #### B MP ####[facility] [address] [place] [address]Dr. Leeanna Aldo EGFR-AF ICELANDIC >60 Normal >=60 [facility] Comment on above: Performed By: #### B MP ####[facility] [address] [place], [place] [address]Dr. Leeanna Carlson EGFR-NON AF ICELANDIC >60 Normal >=60 [facility] Comment on above: Performed By: #### B MP ####[facility] [address] [place], [place] [address]Dr. Leeanna Carlson Glucose [Mass/Vol] 96 mg/dL Normal 74-106 [facility] Comment on above: Performed By: #### B MP ####[facility] V[address] [place], [place] [address]Dr. Leeanna Carlson Potassium [Moles/Vol] 4.4 mmol/L Normal 3.5-5.1 [facility] Comment on above: Performed By: #### B MP ####[facility] Rszz[address] [place], [place] [address]Dr. Leeanna Carlson Sodium [Moles/Vol] 137 mmol/L Normal 136-145 [facility] Comment on above: Performed By: #### B MP ####[facility] [address] [place], [place] [address]Dr. Leeanna Carlson Urea nitrogen [Mass/Vol] 17.0 mg/dL Normal 7.0-18.0 [facility] Comment on above: Performed By: #### B MP ####[facility] [address] [place], [place] [address]Dr. Leeanna Carlson Urea nitrogen/Creatinine [Mass ratio] 14.4 mg/mg Normal [facility] Comment on above: Performed By: #### B MP ####[facility] [address] [place] [address]DrCassidy Carlson PROTIMEon 08-09-2022 INR Coag (PPP) [Relative time] 1.01 {INR} Normal [facility] Comment on above: Performed By: #### P T, PTT ####[facility] [address] [place] [address]DrCassidy Carlson INR GUIDELINES SEE BELOW Normal [facility] Comment on above: Result Comment: AIRAM RED INR: 2.0 - 3.0 CONDITIONS NOT LISTED BELOW 2.5 - 3.5 FOR PROSTHETIC HEART VALVE REPLACEMENT 2.5 - 3.5 RECURRENT THROMBOSIS Performed By: #### P T, PTT ####[facility] [address] [place] [address]DrCassidy Carlson PT Coag (PPP) [Time] 10.7 s Normal 9.0-11.6 [facility] Comment on above: Performed By: #### P T, PTT ####[facility] [address] [place] [address]DrCassidy Carlson PTTon 08-09-2022 aPTT Coag (Bld) [Time] 29.2 s Normal 22.3-36.[address] [facility] Comment on above: Performed By: #### P T, PTT ####[facility] [address] [place] [address]DrCassidy Carlson CBC AUTO DIFFon 07-28-2022 BASO # 0.0 103/ul Normal 0.0-0.1 [facility] Comment on above: Performed By: #### C BC #### [facility] [address] [place] [address] [address] Leeanna Carlson Basophils/100 WBC (Bld) 0.8 % Normal 0.2-2.0 [facility] Comment on above: Performed By: #### C BC #### [facility] [address] [place] [address] [address] Leeanna Carlson EO # 0.0 103/ul Normal 0.0-0.7 [facility] Comment on above: Performed By: #### C BC #### [facility] [address] [place] [address] Dr. Leeanna Carlson Eosinophils/100 WBC (Bld) 0.6 % Critically low 0.9-7.0 [facility] Comment on above: Performed By: #### C BC #### [facility] [address] [place] [address] Dr. Leeanna Carlson Erythrocyte distribution width (RBC) [Ratio] 13.3 % Normal 11.0-15.0 [facility] Comment on above: Performed By: #### C BC #### [facility] [address] [place] [address] Dr. Leeanna Carlson Hematocrit (Bld) [Volume fraction] 46.5 % Normal 42.0-54.0 [facility] Comment on above: Performed By: #### C BC #### [facility] [address] [place] [address] Dr. Leeanna Carlson Hemoglobin (Bld) [Mass/Vol] 15.4 g/dL Normal 14.0-18.0 [facility] Comment on above: Performed By: #### C BC #### [facility] [address] [place] [address] Dr. Leeanna Carlson IG # 0.01 10e3/ul Normal 0.00-0.03 [facility] Comment on above: Performed By: #### C BC #### [facility] [address] [place] [address] Dr. Leeanna Carlson IG % 0.2 % Normal 0.0-0.5 [facility] Comment on above: Performed By: #### C BC #### [facility] [address] [place] [address] Dr. Leeanna Carlson LYMPH # 1.8 103/ul Normal 1.2-3.8 [facility] Comment on above: Performed By: #### C BC #### [facility] [address] [place] [address] Dr. Leeanna Carlson Lymphocytes/100 WBC (Bld) 35.0 % Normal 20.5-60.0 [facility] Comment on above: Performed By: #### C BC #### [facility] [address] [place] [address] Dr. Leeanna Carlson MANUAL DIFF REQ NO Normal [facility] Comment on above: Performed By: #### C BC #### [facility] [address] [place] [address] Dr. Leeanna Carlson MCH (RBC) [Entitic mass] 28.4 pg Normal 25.9-34.0 [facility] Comment on above: Performed By: #### C BC #### [facility] [address] [place] [address] Dr. Leeanna Carlson MCHC (RBC) [Mass/Vol] 33.1 g/dL Normal 29.9-35.2 [facility] Comment on above: Performed By: #### C BC #### [facility] [address] [place] [address] Dr. Leeanna Carlson MCV (RBC) [Entitic vol] 85.6 fL Normal 80.0-94.0 [facility] Comment on above: Performed By: #### C BC #### [facility] [address] [place] [address] Dr. Leeanna Carlson MONO # 0.6 103/ul Normal 0.3-0.8 [facility] Comment on above: Performed By: #### C BC #### [facility] [address] [place] [address] Dr. Leeanna Carlson Monocytes/100 WBC (Bld) 11.5 % Normal 1.7-12.0 [facility] Comment on above: Performed By: #### C BC #### [facility] [address] [place] [address] Dr. Leeanna Carlson NEUT # 2.7 103/ul Normal 1.4-6.5 [facility] Comment on above: Performed By: #### C BC #### [facility] [address] [place] [address] Dr. Leeanna Carlson Neutrophils/100 WBC (Bld) 51.9 % Normal 43.0-75.0 [facility] Comment on above: Performed By: #### C BC #### [facility] [address] [place], [place] [address] Dr. Leeanna Carlson Platelet mean volume (Bld) [Entitic vol] 9.9 fL Normal 9.5-13.5 [facility] Comment on above: Performed By: #### C BC #### [facility] [address] [place] [address] Dr. Leeanna Carlson PLT 191 103/ul Normal 150-450 [facility] Comment on above: Performed By: #### C BC #### [facility] [address] [place] [address] [address] Leeanna Carlson RBC 5.43 106/ul Normal 4.70-6.10 [facility] Comment on above: Performed By: #### C BC #### [facility] [address] [place] [address] Dr. Leeanna Carlson WBC 5.1 103/ul Normal 4.0-11.0 [facility] Comment on above: Performed By: #### C BC #### [facility] [address] [place] [address] ABD/PELVIS WO CONon [...] JOHANNA MARIE Date: 2022-07-28 10:52 Normal [facility] ER URINE PROFILEon 3 Bilirubin Ql (U) Negative Normal NEGATIVE [facility] Comment on above: Performed By: #### U MICRO, ERUR #### [facility] [address] [place] [address] Dr. Leeanna Carlson Clarity (U) CLOUDY Abnormal CLEAR [facility] Comment on above: Performed By: #### U MICRO, ERUR #### [facility] [address] [place] [address] Dr. Leeanna Carlson Color (U) BROWN Abnormal YELLOW [facility] Comment on above: Performed By: #### U MICRO, ERUR #### [facility] [address] [place] [address] [address] Leeanna ALEJANDRAD A micrscopic examination will be performed if indicated. Normal [facility] Comment on above: Performed By: #### U MICRO, ERUR #### [facility] [address] [place] [address] [address] Leeanna Carlson Glucose Ql (U) Negative Normal NEGATIVE [facility] Comment on above: Performed By: #### U MICRO, ERUR #### [facility] [address] [place] [address] [address] Leeanna Carlson Hemoglobin Ql (U) LARGE Abnormal NEGATIVE [facility] Comment on above: Performed By: #### U MICRO, ERUR #### [facility] [address] [place] [address] Dr. Leeanna Carlson Ketones Ql (U) Negative Normal NEGATIVE [facility] Comment on above: Performed By: #### U MICRO, ERUR #### [facility] [address] [place] [address] Dr. Leeanna Carlson LEUKOCYTES TRACE Abnormal NEGATIVE [facility] Comment on above: Performed By: #### U MICRO, ERUR #### [facility] [address] [place] [address] [address] Leeanna Carlson Nitrite Ql (U) Negative Normal NEGATIVE [facility] Comment on above: Performed By: #### U MICRO, ERUR #### [facility] [address] [place] [address] Dr. Leeanna Carlson pH (U) 5.0 [pH] Normal 5-9 [facility] Comment on above: Performed By: #### U MICRO, ERUR #### [facility] [address] [place] [address] Dr. Leeanna Carlson Protein (U) [Mass/Vol] 30 mg/dL Abnormal NEGAT KIERSTEN/ TRACE [facility] Comment on above: Performed By: #### U MICRO, ERUR #### [facility] [address] [place] [address] Dr. Leeanna Carlson SPEC GRAVITY 1.020 Normal 1.005-<=1.[address] [facility] Comment on above: Performed By: #### U MICRO, ERUR #### [facility] [address] [place] [address] Dr. Leeanna Carlson UR MICRO IND INDICATED Normal [facility] Comment on above: Performed By: #### U MICRO, ERUR #### [facility] [address] [place] [address] Dr. Leeanna Carlson Urobilinogen Qn (U) 1.0 {Marito'U}/dL Normal 0.2 - 1. 0 [facility] Comment on above: Performed By: #### U MICRO, ERUR #### [facility] [address] [place] [address] Dr. Leeanna Carlson URINE MICROSCOPIC ONLYon BACTERIA NONE SEEN Normal NONE SEEN [facility] Comment on above: Performed By: #### U MICRO, ERUR #### [facility] [address] [place] [address] [address] Leeanna Carlson Bacteria identified Cx Nom (U) NOT INDICATED Normal [facility] Comment on above: Performed By: #### U MICRO, ERUR #### [facility] [address] [place] [address] Dr. Leeanna Carlson CAST NONE SEEN Normal NONE SEEN [facility] Comment on above: Performed By: #### U MICRO, ERUR #### [facility] [address] [place] [address] [address] Leeanna Carlson Crystals LM Nom (Urine sed) NONE SEEN Normal NONE SEEN [facility] Comment on above: Performed By: #### U MICRO, ERUR #### [facility] [address] [place] [address] Dr. Leeanna Carlson Epithelial cells LM Ql (Urine sed) RARE Normal NONE SEEN /RARE [facility] Comment on above: Performed By: #### U MICRO, ERUR #### [facility] [address] [place] [address] Dr. Leeanna Carlson MUCOUS NONE SEEN Normal NONE SEEN [facility] Comment on above: Performed By: #### U MICRO, ERUR #### [facility] [address] [place] [address] Dr. Leeanna Carlson RBC (U) [#/Vol] /uL Abnormal 0-[address] [facility] Comment on above: Performed By: #### U MICRO, ERUR #### [facility] [address] [place] [address] Dr. Leeanna Carlson WBC 0-2 Abnormal NONE SEEN [facility] Comment on above: Performed By: #### U MICRO, ERUR #### [facility] [address] [place] [address] [address] Leeanna Carlson CULTURE URINEon 06-14-2022 CULTURE URINE Culture Observations: NO GROWTH. Normal [facility] Comment on above: Performed By: #### U RCX ####[facility] [address] [place] [address]Dr. Leeanna Carlson UA RANDOMon 06-14-2022 Bilirubin Ql (U) Negative Normal NEGATIVE [facility] Comment on above: Performed By: #### U A #### [facility] [address] [place] [address] Dr. Leeanna Carlson Clarity (U) CLEAR Normal CLEAR [facility] Comment on above: Performed By: #### U A #### [facility] [address] [place] [address] Dr. Leeanna Carlson Color (U) LT. YELLOW Normal YELLOW [facility] Comment on above: Performed By: #### U A #### [facility] [address] [place] [address] Dr. Leeanna Carlson Glucose Ql (U) Negative Normal NEGATIVE [facility] Comment on above: Performed By: #### U A #### [facility] [address] [place] [address] Dr. Leeanna Carlson Hemoglobin Ql (U) SMALL Abnormal NEGATIVE [facility] Comment on above: Performed By: #### U A #### [facility] [address] [place] [address] Dr. Leeanna aCrlson Ketones Ql (U) Negative Normal NEGATIVE [facility] Comment on above: Performed By: #### U A #### [facility] [address] [place] [address] Dr. Leeanna Carlson LEUKOCYTES Negative Normal NEGATIVE [facility] Comment on above: Performed By: #### U A #### [facility] [address] [place] [address] Dr. Leeanna Carlson Nitrite Ql (U) Negative Normal NEGATIVE [facility] Comment on above: Performed By: #### U A #### [facility] [address] [place] [address] Dr. Leeanna Carlson pH (U) 6.0 [pH] Normal 5-9 [facility] Comment on above: Performed By: #### U A #### [facility] [address] [place] [address] Dr. Leeanna Carlson SPEC GRAVITY <=1.005 Abnormal 1.005-<=1.025 [facility] Comment on above: Performed By: #### U A #### [facility] [address] [place] [address] Dr. Leeanna Carlson UA PROTEIN Negative Normal NEGATIVE/ TRACE [facility] Comment on above: Performed By: #### U A #### [facility] [address] [place] [address] [address] Leeanna Carlson Urobilinogen Qn (U) 0.2 {Marito'U}/dL Normal 0.2 - 1. 0 [facility] Comment on above: Performed By: #### U A #### [facility] [address] [place] [address] [address] Leeanna Carlson US KIDNEYSon 06-14-2022 US [...] ARTHUR ONTIVEROS Date: 2022-06-14 14:27 Normal [facility] XR KUB 1 VIEWon 06-14-2022 [...] ZAYAS Date: 2022-06-14 13:33 Normal [facility] Creatinine (Bld) [Mass/Vol]O rdered By: Dave Solorio on 04-27-2022 Creatinine [Mass/Vol] 1.2 mg/dL 0.6-1.3 [facility] Comment on above: ER/ESD physician is notified/shown all ISTAT results.Critical values may be confirmed by laboratory testing ifdeemed necessary by ER attending doctor. No Panel InformationOrdered By: Dave Solorio on 04-27-2022 POC Estimated GFR > 60 [facility] Comment on above: GFR estimated refere nce range: According to KDOQI guidelines, <60 ml/min/1.73m2 is sufficient to diagnose a patient with chronic kidney disease. POC Estimated GFR Non- Amer > 60 [facility] XR KUB 1 VIEWon 04-19-2022 [...] by: GIOVANNY ZAYAS Date: 2022-04-19 16:59 Normal [facility] XR KUB 1 VIEWon 10-06-2021 XR KUB [...] by: JOHANNA MARIE Date: 2021-10-06 16:08 Normal [facility] CBC AUTO DIFFon 09-28-2021 BASO # 0.0 103/ul Normal 0.0-0.1 [facility] Comment on above: Performed By: #### C BC ####[facility] [address] [place], [place] [address]Dr. Leeanna Carlson Basophils/100 WBC (Bld) 0.8 % Normal 0.2-2.0 [facility] Comment on above: Performed By: #### C BC ####[facility] [address] [place], [place] [address]Dr. Leeanna Carlson EO # 0.1 103/ul Normal 0.0-0.7 [facility] Comment on above: Performed By: #### C BC ####[facility] [address] [place], [place] [address]Dr. Tammieami Aldo Eosinophils/100 WBC (Bld) 2.0 % Normal 0.9-7.0 [facility] Comment on above: Performed By: #### C BC ####[facility] [address] [place], [place] [address]Dr. Leeanna Carlson Erythrocyte distribution width (RBC) [Ratio] 13.2 % Normal 11.0-15.0 [facility] Comment on above: Performed By: #### C BC ####[facility] [address] [place], [place] [address]Dr. Leeanna Carlson Hematocrit (Bld) [Volume fraction] 47.8 % Normal 42.0-54.0 [facility] Comment on above: Performed By: #### C BC ####[facility] [address] [place], [place] [address]Dr. Leeanna Carlson Hemoglobin (Bld) [Mass/Vol] 15.8 g/dL Normal 14.0-18.0 [facility] Comment on above: Performed By: #### C BC ####[facility] [address] [place], [place] [address]Dr. Leeanna Carlson IG # 0.01 10e3/ul Normal 0.00-0.03 [facility] Comment on above: Performed By: #### C BC ####[facility] [address] [place] [address]Dr. Leeanna Carlson IG % 0.2 % Normal 0.0-0.5 [facility] Comment on above: Performed By: #### C BC ####[facility] [address] [place], [place] [address]Dr. Leeanna Carlson LYMPH # 1.4 103/ul Normal 1.2-3.8 [facility] Comment on above: Performed By: #### C BC ####[facility] [address] [place], [place] [address]Dr. Leeanna Carlson Lymphocytes/100 WBC (Bld) 29.1 % Normal 20.5-60.0 [facility] Comment on above: Performed By: #### C BC ####[facility] [address] [place], [place] [address]Dr. Leeanna Carlson MANUAL DIFF REQ NO Normal [facility] Comment on above: Performed By: #### C BC ####[facility] [address] [place], [place] [address]Dr. Tammieami Carlson MCH (RBC) [Entitic mass] 28.4 pg Normal 25.9-34.0 [facility] Comment on above: Performed By: #### C BC ####[facility] [address] [place], [place] [address]Dr. Leeanna Aldo MCHC (RBC) [Mass/Vol] 33.1 g/dL Normal 29.9-35.2 [facility] Comment on above: Performed By: #### C BC ####[facility] [address] [place], [place] [address]DrCassidy Carlson MCV (RBC) [Entitic vol] 86.0 fL Normal 80.0-94.0 [facility] Comment on above: Performed By: #### C BC ####[facility] [address] [place], [place] [address]DrCassidy Carlson MONO # 0.5 103/ul Normal 0.3-0.8 [facility] Comment on above: Performed By: #### C BC ####[facility] [address] [place], [place] [address]Dr. Leeanna Carlson Monocytes/100 WBC (Bld) 9.9 % Normal 1.7-12.0 [facility] Comment on above: Performed By: #### C BC ####[facility] [address] [place] [address]Dr. Leeanna Carlson NEUT # 2.9 103/ul Normal 1.4-6.5 [facility] Comment on above: Performed By: #### C BC ####[facility] [address] [place] [address]Dr. Leeanna Carlson Neutrophils/100 WBC (Bld) 58.0 % Normal 43.0-75.0 [facility] Comment on above: Performed By: #### C BC ####[facility] [address] [place] [address]Dr. Leeanna Carlson Platelet mean volume (Bld) [Entitic vol] 10.3 fL Normal 9.5-13.5 [facility] Comment on above: Performed By: #### C BC ####[facility] Pikwk[address] [place], [place] [address]Dr. Leeanna Carlson PLT 187 103/ul Normal 150-450 [facility] Comment on above: Performed By: #### C BC ####[facility] [address] [place], [place] [address]Dr. Leeanna Carlson RBC 5.56 106/ul Normal 4.70-6.10 [facility] Comment on above: Performed By: #### C BC ####[facility] [address] [place], [place] [address]Dr. Leeanna Carlson WBC 4.9 103/ul Normal 4.0-11.0 [facility] Comment on above: Performed By: #### C BC ####[facility] [address] [place] [address]DrCassidy Leeanna Aldo PROF CHEM 8 (BAS METB)on Anion gap [Moles/Vol] 8.9 mmol/L Normal [facility] Comment on above: Performed By: #### B MP ####[facility] Vs[address] [place], [place] [address]Dr. Leeanna aCrlson Calcium [Mass/Vol] 9.1 mg/dL Normal 8.5-10.1 [facility] Comment on above: Performed By: #### B MP ####[facility] [address] [place] [address]Dr. Leeanna Carlson Chloride [Moles/Vol] 105 mmol/L Normal 98-107 [facility] Comment on above: Performed By: #### B MP ####[facility] Fmqmwsksac[address] [place], [place] [address]Dr. Leeanna Carlson CO2 [Moles/Vol] 27.8 mmol/L Normal 21.0-32.0 [facility] Comment on above: Performed By: #### B MP ####[facility] Intid[address] [place], [place] [address]Dr. Leeanna Carlson Creatinine [Mass/Vol] 1.18 mg/dL Normal 0.70-1.30 [facility] Comment on above: Performed By: #### B MP ####[facility] [address] [place], [place] [address]Dr. Leeanna Carlson EGFR-AF ICELANDIC >60 Normal >=60 [facility] Comment on above: Performed By: #### B MP ####[facility] P[address] [place], [place] [address]Dr. Leeanna Aldo EGFR-NON AF ICELANDIC >60 Normal >=60 [facility] Comment on above: Performed By: #### B MP ####[facility] Takttitgdh[address] [place], [place] [address]Dr. Leeanna Aldo Glucose [Mass/Vol] 110 mg/dL Critically high 74-106 [facility] Comment on above: Performed By: #### B MP ####[facility] Rtywt[address] [place], [place] [address]Dr. Tammieami Aldo Potassium [Moles/Vol] 4.7 mmol/L Normal 3.5-5.1 [facility] Comment on above: Performed By: #### B MP ####[facility] Tlked[address] [place], [place] [address]Dr. Tammieami Aldo Sodium [Moles/Vol] 137 mmol/L Normal 136-145 [facility] Comment on above: Performed By: #### B MP ####[facility] [address] [place] [id number]. Leeanna Carlson Urea nitrogen [Mass/Vol] 22.0 mg/dL Critically high 7.0-18.0 [facility] Comment on above: Performed By: #### B MP ####[facility] [address] [place] [id number]. Leeanna Carlson Urea nitrogen/Creatinine [Mass ratio] 18.6 mg/mg Normal [facility] Comment on above: Performed By: #### B MP ####[facility] [address] [place] [address]Dr. Leeanna Carlson PROTIMEon 09-28-2021 INR Coag (PPP) [Relative time] 0.98 {INR} Normal [facility] Comment on above: Performed By: #### P TT, PT #### [facility] [address] [address] [address] Leeanna Carlson INR GUIDELINES SEE BELOW Normal [facility] Comment on above: Result Comment: AIRAM RED INR: 2.0 - 3.0 CONDITIONS NOT LISTED BELOW 2.5 - 3.5 FOR PROSTHETIC HEART VALVE REPLACEMENT 2.5 - 3.5 RECURRENT THROMBOSIS Performed By: #### P TT, PT #### [facility] [address] [address] [address] Leeanna Carlson PT Coag (PPP) [Time] 10.6 s Normal 9.0-11.6 [facility] Comment on above: Performed By: #### P TT, PT #### [facility] [address] [address] [address] Leeanna Carlson PTTon 09-28-2021 aPTT Coag (Bld) [Time] 29.3 s Normal 22.3-36.2 [facility] Comment on above: Performed By: #### P TT, PT #### [facility] [address] [address] [address] Leeanna Carlson Comprehensive Metabolic Pane puneet 06-03-2021 Albumin [Mass/Vol] 4.6 g/dL Normal 3.6-5.1 [facility] Comment on above: Performed By: #### V ITD LIPD, CMP #### [facility] [address] [place], [place] [id number] Albumin/Globulin [Mass ratio] 1.9 {ratio} Normal 1.0-2.[address] [facility] Comment on above: Performed By: #### V ITD LIPD, CMP #### [facility] [address] [place], [place] [id number] ALP [Catalytic activity/Vol] 85 U/L Normal 40-129 [facility] Comment on above: Performed By: #### V ROMAINE POOLD, CMP #### [facility] [address] [place], [place] [id number] ALT [Catalytic activity/Vol] 28 U/L Normal 9-46 [facility] Comment on above: Result Comment: 03/02 Female reference range changed. Performed By: #### V CORINE LIPD, CMP #### [facility] [address] [place], [place] [id number] Anion gap [Moles/Vol] 18 mmol/L Normal 12-20 [facility] Comment on above: Result Comment: Effe ctive 04/07/2019 reference range changed. Performed By: #### V ITD LIPD, CMP #### [facility] [address] [place], [place] [id number] AST [Catalytic activity/Vol] 25 U/L Normal 10-40 [facility] Comment on above: Performed By: #### V ITD LIPD, CMP #### [facility] [address] [place], [place] [id number] Bilirubin [Mass/Vol] 0.65 mg/dL Normal 0.30-1.20 [facility] Comment on above: Performed By: #### V ITD LIPD, CMP #### [facility] [address] [place], [place] [id number] BUN/CREA 24 Ratio High 6-22 [facility] Comment on above: Performed By: #### V ITD, LIPD, CMP #### [facility] [address] [place], [place] [id number] Calcium [Mass/Vol] 9.4 mg/dL Normal 8.6-10.2 [facility] [place] [facility] [employer] Comment on above: Performed By: #### V ROMAINE POOLD, CMP #### [facility] [address] [place], [place] [id number] Chloride [Moles/Vol] 105 mmol/L Normal 98-107 [facility] Comment on above: Performed By: #### V ITD LIPD, CMP #### [facility] [address] [place], [place] [id number] CO2 [Moles/Vol] 23 mmol/L Normal 20-[address] [facility] Comment on above: Performed By: #### V CORINE LIPD, CMP #### [facility] [address] [place], [place] [id number] Creatinine [Mass/Vol] 1.1 mg/dL Normal 0.7-1.4 [facility] Comment on above: Performed By: #### V ITD LIPD, CMP #### [facility] [address] [place], [place] [id number] eGFRAA 86 mL/min/1.73m2 Normal >60 [facility] Comment on above: Performed By: #### V ITD LIPD, CMP #### [facility] [address] [place], [place] [id number] eGFRNAA 71 mL/min/1.73m2 Normal >60 [facility] Comment on above: Performed By: #### V ITD LIPD, CMP #### [facility] [address] [place], [place] [id number] Globulin (S) [Mass/Vol] 2.4 g/dL Normal 1.9-3.7 [facility] Comment on above: Performed By: #### V ITD, LIPD, CMP #### [facility] [address] [place], [place] [id number] Glucose [Mass/Vol] 97 mg/dL Normal 65-99 [facility] [place] [employer] Comment on above: Result Comment: For FASTING Glucose --- ADA reference ranges: Normal 65-99 mg/dl Prediabetes 100-125 Diabetes >/= 126 Performed By: #### V ITD, LIPD, CMP #### [facility] [address] [place] [id number] Potassium [Moles/Vol] 4.5 mmol/L Normal 3.5-5.5 [facility] Comment on above: Performed By: #### V ITD, LIPD, CMP #### [facility] [address] [facility] [place] [id number] Protein [Mass/Vol] 7.0 g/dL Normal 6.1-8.1 [facility] Comment on above: Performed By: #### V ITD, LIPD, CMP #### [facility] [address] [facility] [place] [id number] Sodium [Moles/Vol] 141 mmol/L Normal 135-146 [facility] [employer] Comment on above: Performed By: #### V ITD, LIPD, CMP #### [facility] [address] [facility] [place] [id number] Urea nitrogen [Mass/Vol] 26 mg/dL High 7-25 [facility] Comment on above: Performed By: #### V ITD, LIPD, CMP #### [facility] [address] [place], [place] [id number] Hemoglobin A1Con 06-03-2021 EAG 125.50 Normal [facility] Comment on above: Performed By: #### A 1C #### [facility] [address] [place], [place] [id number] HbA1c (Bld) [Mass fraction] 6.0 % Normal 4.0-6.0 [facility] Comment on above: Performed By: #### A 1C #### [facility] [address] [place], [place] [id number] Lipid Panelon 06-03-2021 Cholesterol [Mass/Vol] 232 mg/dL High 125-200 [facility] Comment on above: Result Comment: Low risk < 200mg/dL Borderline risk 201-239 mg/dl High risk > or equal to 240 Performed By: #### V ITD, LIPD, CMP #### [facility] [address] [facility] [place] [id number] Cholesterol in HDL [Mass/Vol] 68 mg/dL Normal >40 [facility] [employer] Comment on above: Result Comment: High Cardiovascular Risk HDL <40 mg/dL Low Cardiovascular Risk HDL > or equal to 60 mg/dl Performed By: #### V ITD, LIPD, CMP #### [facility] [address] [place], [place] [id number] Cholesterol in LDL [Mass/Vol] 153 mg/dL Normal [facility] Comment on above: Result Comment: LDL ATP III CLASSIFICATION LDL less than 100 mg/dl Optimal LDL 100-129 mg/dl Near or above optimal LDL 130-159 Borderline high LDL 160-189 High LDL greater than 189 mg/dl Very High Performed By: #### V ITD, LIPD, CMP #### [facility] [address] [place], [place] [id number] Cholesterol in VLDL [Mass/Vol] 11 mg/dL Normal [facility] Comment on above: Performed By: #### V ITD, LIPD, CMP #### [facility] [address] [place], [place] [id number] Cholesterol.total/Chol esterol in HDL [Mass ratio] 3 {ratio} Normal [facility] Comment on above: Performed By: #### V ITD, LIPD, CMP #### [facility] [address] [place], [place] [id number] Triglyceride [Mass/Vol] 55 mg/dL Normal 30-150 [facility] [employer] Comment on above: Result Comment: TRIG ATPIII CLASSIFICATIONS TRIG less than 150 mg/dl Normal TRIG 150-199 mg/dl Borderline High TRIG 200-500 mg/dl High TRIG greather than 500 mg/dl Very High Performed By: #### V ITD, LIPD, CMP #### [facility] [address] [place], [place] [id number] Prostatic Specific Antigen, Totalon 06-03-2021 TPSA 5.030 ng/mL High <4.000 [facility] Comment on above: Result Comment: PSA Test Method: ECLIA/Maira e 601 Performed By: #### P SA #### [facility] [address] [place], [place] [id number] Vitamin D 25-OHon 06-03-2021 VIT D 25 OH 57 ng/ml Normal >29 [facility] [employer] Comment on above: Result Comment: Amanda min D Status Deficiency <20 ng/mL Insufficiency 20-29 ng/mL Optimal 30-100 ng/mL Possible Toxicity >=150 ng/mL Performed By: #### V CORINE, LAINE, CMP #### [facility] [address] [facility] [place] [id number] MRI PROSTATE WO/W IVCONon MRI PROSTATE WO/W [...] prostate and pelvis performed on a 3T (Buzzoola) scanner utilizing phase pelvic coil. Sequences obtained: Multiplanar T2-WI with small [id number]; Axial diffusion weighted images with multiple B-values and creation of ADC-maps; Dynamic contrast enhanced T1-weighted images through the prostate were also obtained before, during and after the administration of intravenous gadolinium. Prostate dimensions and volume were obtained using a semi-automated software ([employer]). CONTRAST: IV: 17 cc of (Dotarem). RESULT: [...] Clinically significant cancer is highly likely (V.05.2018) Cafe Operator: GEOFF Transcribe Date/Time: Mar 10 2019 1:33P Dictated by : DAVE JONES MD This examination was interpreted and the report reviewed and electronically signed by: DAVE JONES MD on Mar 10 2019 2:15PM EST [id number] Normal [facility] PROGRESSon 03-10-2019 PROGRESS HNO ID: [id number] Author: Hallie Manning) QUIN Saavedra Service: Radiology [...] March 10, 2019 TIME: 12:15 PM Normal [facility] PROGRESS HNO ID: [id number] Author: Rosina Ferrari (Tech) Service: Radiology Author Type: Flotation Tank Operator Type: Progress Notes Filed: 03/10/2019 12:54 PM [...] Ferrari March 10, 2019 12:54 PM Normal [facility] Vital Signs Date Time Vital Sign Value Performing Clinician Facility 07-21-2024 09:28-0400 Body height 178 cm [email or web address] 07-21-2024 09:28-0400 Body mass index (BMI) [Ratio] 26.28 kg/m2 Jeana Hernandez DO [email or web address] 07-21-2024 09:28-0400 Body temperature 97.59 [degF] Je[facility] Hernandez DO [email or web address] 07-21-2024 09:28-0400 Body weight 83.28 kg Jeana Hernandez DO [email or web address] 07-21-2024 09:28-0400 Diastolic blood pressure 82 mm[Hg] Je[email or web address] 07-21-2024 09:28-0400 Heart rate 56 /min Jeana Hernandez DO [email or web address] 07-21-2024 09:28-0400 SaO2% (BldA) [Mass fraction] 99 % Jeana Hernandez DO Work Phone: [facility] 07-21-2024 09:28-0400 Systolic blood pressure 122 mm[Hg] Jeana Hernandez DO [email or web address] 06-03-2024 10:21-0500 Body height 177.8 cm Keerthi Veliz MD [email or web address] 06-03-2024 10:21-0500 Body mass index (BMI) [Ratio] 27.52 kg/m2 Keerthi Veliz MD Work Phone: [facility] 06-03-2024 10:21-0500 Body temperature 97.9 [degF] Keerthi Veliz MD Work Phone: [facility] 06-03-2024 10:21-0500 Body weight 87 kg Keerthi Veliz MD Work Phone: [facility] 06-03-2024 10:21-0500 Diastolic blood pressure 84 mm[Hg] Keerthi Veliz MD Work Phone: [facility] 06-03-2024 10:21-0500 Heart rate 61 /min Keerthi Veliz MD Work Phone: [facility] 06-03-2024 10:21-0500 SaO2% (BldA) [Mass fraction] 97 % Keerthi Veliz MD Work Phone: [facility] 06-03-2024 10:21-0500 Systolic blood pressure 150 mm[Hg] Keerthi Veliz MD Work Phone: [facility] 05-27-2024 13:57-0500 Body height 177.8 cm [facility] 05-27-2024 13:57-0500 Body mass index (BMI) [Ratio] 27.1 kg/m2 [facility] 05-27-2024 13:57-0500 Body temperature 97.3 [degF] [facility] 05-27-2024 13:57-0500 Body weight 85.78 kg [facility] 05-27-2024 13:57-0500 Diastolic blood pressure 79 mm[Hg] [facility] 05-27-2024 13:57-0500 Heart rate 57 /min [facility] 05-27-2024 13:57-0500 Respiratory rate 18 /min [facility] 05-27-2024 13:57-0500 SaO2% (BldA) [Mass fraction] 97 % [facility] 05-27-2024 13:57-0500 Systolic blood pressure 134 mm[Hg] [facility] 04-11-2024 08:23-0500 Body height 177.8 cm Keerthi Veliz MD Work Phone: [facility] [facility] 04-11-2024 08:23-0500 Body mass index (BMI) [Ratio] 27.61 kg/m2 Keerthi Veliz MD Work Phone: [facility] [facility] 04-11-2024 08:23-0500 Body temperature 97.81 [degF] Keerthi Veliz MD Work Phone: [facility] [facility] 04-11-2024 08:23-0500 Body weight 87.27 kg Keerthi Veliz MD Work Phone: [facility] 04-11-2024 08:23-0500 Diastolic blood pressure 82 mm[Hg] Keerthi Veliz MD Work Phone: [facility] 04-11-2024 08:23-0500 Heart rate 66 /min Keerthi Veliz MD Work Phone: [facility] 04-11-2024 08:23-0500 SaO2% (BldA) [Mass fraction] 96 % Keerthi Veliz MD Work Phone: [facility] 04-11-2024 08:23-0500 Systolic blood pressure 138 mm[Hg] Keerthi Veliz MD Work Phone: [facility] 01-07-2024 11:24-0400 Blood Pressure Location Sharla ARRIAZA [facility] 01-07-2024 11:24-0400 Diastolic blood pressure 78 mm[Hg] Sharla ARRIAZA [facility] 01-07-2024 11:24-0400 Heart rate 62 /min Sharla ARRIAZA [facility] 01-07-2024 11:24-0400 Systolic blood pressure 136 mm[Hg] Sharla ARRIAZA [facility] 07-31-2023 10:59-0400 Body height 177.8 cm Jordan Lopez CONTROL PANEL OPERATOR [employer] Work Phone: [facility] 07-31-2023 10:59-0400 Body mass index (BMI) [Ratio] 28.27 kg/m2 Jordan Lopez CONTROL PANEL OPERATOR [employer] Work Phone: [facility] 07-31-2023 10:59-0400 Body temperature 98.2 [degF] Jordan Lopez CONTROL PANEL OPERATOR [employer]ER Work Phone: [facility] 07-31-2023 10:59-0400 Body weight 89.36 kg Jordan Lopez CONTROL PANEL OPERATOR [employer]ER Work Phone: [facility] 07-31-2023 10:59-0400 Diastolic blood pressure 72 mm[Hg] Jordan Lopez CONTROL PANEL OPERATOR [employer]ER Work Phone: [facility] 07-31-2023 10:59-0400 Heart rate 66 /min Jordan Lopez CONTROL PANEL OPERATOR [employer]ER Work Phone: [facility] 07-31-2023 10:59-0400 SaO2% (BldA) [Mass fraction] 96 % Jordan Lopez CONTROL PANEL OPERATOR [employer]ER Work Phone: [facility] 07-31-2023 10:59-0400 Systolic blood pressure 132 mm[Hg] Jordan Lopez CONTROL PANEL OPERATOR [employer] Work Phone: [facility] 07-02-2023 09:42-0400 Blood Pressure Location Sharla ARRIAZA [facility] 07-02-2023 09:42-0400 Body temperature 98.6 [degF] Sharla ARRIAZA [facility] 07-02-2023 09:42-0400 Diastolic blood pressure 84 mm[Hg] Sharla ARRIAZA [facility] 07-02-2023 09:42-0400 Heart rate 75 /min Sharla ARRIAZA [facility] 07-02-2023 09:42-0400 Respiratory rate 17 /min Sharla ARRIAZA [facility] 07-02-2023 09:42-0400 Systolic blood pressure 137 mm[Hg] Sharla ARRIAZA [facility] 05-23-2023 13:45-0500 Body height 177.8 cm Jeana Currie DO Work Phone: [facility] 05-23-2023 13:45-0500 Body mass index (BMI) [Ratio] 28.5 kg/m2 Jeana Currie DO Work Phone: [facility] 05-23-2023 13:45-0500 Body weight 90.08 kg Jeana Currie DO Work Phone: [facility] 05-23-2023 13:45-0500 Diastolic blood pressure 85 mm[Hg] Jeana Currie DO Work Phone: [facility] 05-23-2023 13:45-0500 Heart rate 63 /min Jeana Currie DO Work Phone: [facility] 05-23-2023 13:45-0500 Systolic blood pressure 134 mm[Hg] Jeana Curire DO Work Phone: [facility] [facility] 04-24-2023 13:03-0500 Body mass index (BMI) [Ratio] 29.1 kg/m2 Keerthi Veliz MD Work Phone: [facility] [facility] 04-24-2023 13:03-0500 Body temperature 97.7 [degF] Keerthi Veliz MD Work Phone: [facility] 04-24-2023 13:03-0500 Body weight 91.99 kg Keerthi Veliz MD Work Phone: [facility] 04-24-2023 13:03-0500 Diastolic blood pressure 78 mm[Hg] Keerthi Veliz MD Work Phone: [facility] 04-24-2023 13:03-0500 Heart rate 71 /min Keerthi Veliz MD Work Phone: [facility] 04-24-2023 13:03-0500 SaO2% (BldA) [Mass fraction] 97 % Keerthi Veliz MD Work Phone: [facility] 04-24-2023 13:03-0500 Systolic blood pressure 134 mm[Hg] Keerthi Veliz MD Work Phone: [facility] 10-09-2022 08:31-0400 Blood Pressure Location Sharla ARRIAZA [facility] 10-09-2022 08:31-0400 Diastolic blood pressure 74 mm[Hg] Sharla ARRIAZA [facility] 10-09-2022 08:31-0400 Heart rate 80 /min Sharla ARRIAZA [facility] 10-09-2022 08:31-0400 Respiratory rate 16 /min Sharla ARRIAZA [facility] 10-09-2022 08:31-0400 Systolic blood pressure 130 mm[Hg] Sharla ARRIAZA [facility] 05-01-2022 09:15-0500 Blood Pressure Location Sharla ARRIAZA [facility] 05-01-2022 09:15-0500 Diastolic blood pressure 84 mm[Hg] Sharla ARRIAZA [facility] 05-01-2022 09:15-0500 Heart rate 75 /min Sharla ARRIAZA [facility] 05-01-2022 09:15-0500 Respiratory rate 16 /min Sharla ARRIAZA [facility] 05-01-2022 09:15-0500 Systolic blood pressure 129 mm[Hg] Sharla ARRIAZA [facility] 04-27-2022 07:35-0500 Body height 177.8 cm DO Monica Cori Work Phone: [facility] 04-27-2022 07:35-0500 Body weight 88.45 kg DO Monica Cori Work Phone: [facility] 04-19-2022 13:20-0500 Blood Pressure Location DONALD LEOLA [facility] 04-19-2022 13:20-0500 Diastolic blood pressure 74 mm[Hg] DONALD LEOLA [facility] 04-19-2022 13:20-0500 Heart rate 72 /min DONALD LEOLA [facility] 04-19-2022 13:20-0500 Respiratory rate 16 /min DONALD LEOLA [facility] 04-19-2022 13:20-0500 Systolic blood pressure 126 mm[Hg] DONALD LEOLA [facility] 10-28-2021 10:27-0400 Blood Pressure Location Sharla ARRIAZA [facility] 10-28-2021 10:27-0400 Diastolic blood pressure 81 mm[Hg] Sharla ARRIAZA [facility] 10-28-2021 10:27-0400 Heart rate 54 /min Sharla ARRIAZA [facility] 10-28-2021 10:27-0400 Respiratory rate 16 /min Sharla ARRIAZA [facility] 10-28-2021 10:27-0400 Systolic blood pressure 134 mm[Hg] Sharlaastrid ARRIAZA [facility] 08-17-2021 10:03-0400 Blood Pressure Location Sharlaastrid ARRIAZA [facility] [employer] 08-17-2021 10:03-0400 Diastolic blood pressure 87 mm[Hg] Sharla ARRIAZA [facility] 08-17-2021 10:03-0400 Heart rate 58 /min Sharlaastrid ARRIAZA [facility] 08-17-2021 10:03-0400 Systolic blood pressure 134 mm[Hg] Sharla ARRIAZA [facility] Encounters Encounter Date Encounter Type Care Provider Facility Start: 12-24-2024 End[facility] Start: 12-24-2024 End: 12-24-2024 ambulatory [facility] Facility:[facility] Start: 12-24-2024 End: 12-24-2024 Patient encounter procedure Estephania Brown [facility] Start: 10-27-2024 End: 10-27-2024 ambulatory VANNESA REYES Not Available Start: 10-27-2024 End: 10-27-2024 Office outpatient visit 15 minutes Vannesa Reyes PA Work Phone: [facility] [facility] Comment on above: Psoriasis vulgaris ( Primary Dx); Encounter for long-term (current) use of medications Start: 10-27-2024 End: 10-27-2024 BamGlideheet Vannesa Reyes PA Work Phone: [facility] Start: 10-27-2024 End: 10-27-2024 Bamboo Sinopsys Surgicalheet Vannesa Reyes PA Work Phone: [facility] Start: 09-08-2024 End: 09-08-2024 ambulatory [facility] Facility:[facility] Start: 09-08-2024 End: 09-08-2024 Patient encounter procedure Sharla ARRIAZA [facility] Start: 07-21-2024 End: 07-21-2024 Patient encounter procedure Jeana Hernandez DO Work Phone: [facility] Comment on above: Encounter for Medica re annual wellness exam (Primary Dx); Constipation, unspecified constipation type; Benign prostatic hyperplasia, unspecified whether lower urinary tract symptoms present Start: 07-21-2024 End: 07-21-2024 ambulatory JEANA HERNANDEZ [facility] Start: 07-21-2024 Encounter for genera l adult medical examination without abnormal findings JEANA HERNANDEZ [facility] Start: 06-03-2024 End: 06-03-2024 Office outpatient visit 15 minutes Keerthi Veliz MD Work Phone: [facility] Comment on above: Herpes zoster withou t complication (Primary Dx) Start: 06-03-2024 End: 06-03-2024 ambulatory [facility] Start: 06-02-2024 End: 06-02-2024 Office outpatient visit 15 minutes Vannesa Reyes PA Work Phone: [facility] Comment on above: Herpes zoster withou t complication (Primary Dx) Start: 06-02-2024 End: 06-02-2024 ambulatory VANNSEA REYES Not Available Start: 06-01-2024 End: 06-01-2024 Emergency department patient visit [facility] Start: 05-27-2024 End: 05-27-2024 ambulatory [facility] Work Phone: Start: 05-27-2024 End: 05-27-2024 Patient encounter procedure [facility] Work Phone: Start: 04-23-2024 End: 04-23-2024 Clinical Support Karen Corbett APRN-FINE SANDER Work Phone: [facility] Comment on above: Pharyngitis, unspeci fied etiology (Primary Dx) Start: 04-11-2024 End: 04-11-2024 Office outpatient visit 25 minutes Keerthi Veliz MD Work Phone: [facility] Comment on above: Palpitation (Primary Dx); Dyspnea on exertion Start: 04-11-2024 End: 04-11-2024 ambulatory [facility] Start: 04-07-2024 End: 04-07-2024 Bamboo flowsheet Vannesa Reyes PA Work Phone: [facility] Start: 04-07-2024 End: 04-07-2024 Bamboo flowsheet Vannesa Reyes PA Work Phone: [facility] Start: 04-07-2024 End: 04-07-2024 ambulatory VANNESA REYES Not Available Start: 04-07-2024 End: 04-07-2024 Office outpatient visit 25 minutes Vannesa Reyes PA Work Phone: [facility] Comment on above: Psoriasis vulgaris ( CMS/HCC) (Primary Dx); Encounter for long-term (current) use of medications Start: 03-30-2024 Non-patient / Non-visit [facility] Work Phone: Start: 03-14-2024 End: 03-14-2024 ambulatory MONICA HINTONEFE Facility:CD:[id number] Start: 03-06-2024 End: 03-06-2024 ambulatory MONICA HINTONEFE Facility:CD:[id number] Start: 01-07-2024 End: 01-07-2024 ambulatory Sharla ARRIAZA Facility:[facility] Start: 01-07-2024 End: 01-07-2024 Patient encounter procedure Sharla ARRIAZA [facility] Start: 07-31-2023 End: 07-31-2023 Office outpatient visit 15 minutes [facility] CONTROL PANEL OPERATOR CRUDE UNIT-FINE SANDER Work Phone: [facility] Comment on above: New daily persistent headache (Primary Dx); Tenderness over maxillary sinus; Post-nasal drip Start: 07-31-2023 End: 07-31-2023 ambulatory [facility] Start: 07-30-2023 End: 07-30-2023 Patient encounter procedure MD Sharla Arriaza Work Phone: [facility] [place] Work Phone: Start: 07-30-2023 End: 07-30-2023 ambulatory NON STAFF [facility] Work Phone: Start: 07-02-2023 End: 07-02-2023 Patient encounter procedure Sharla ARRIAZA [facility] Start: 05-23-2023 End: 05-23-2023 Office outpatient visit 15 minutes Jeana Martin Fermínmichaelyury KLEIN Work Phone: [facility] Comment on above: Acute epididymitis ( Primary Dx); Non-recurrent unilateral inguinal hernia without obstruction or gangrene; Epididymitis Start: 04-24-2023 End: 04-24-2023 Office outpatient visit 25 minutes Keerthi Veliz MD Work Phone: [facility] Comment on above: Non-recurrent unilat eral inguinal hernia without obstruction or gangrene (Primary Dx); Flank pain Start: 04-04-2023 ambulatory Sarah Stone CMA [facility] Quality - Care Coordination Team Start: 04-04-2023 Coordination of care plan Sarah ventura CMA [facility] Quality - Care Coordination Team Start: 10-09-2022 End: 10-09-2022 Patient encounter procedure Sharla RARIAZA [facility] Start: 09-18-2022 End: 09-18-2022 Patient encounter procedure Sharla ARRIAZA [facility] Start: 08-29-2022 End: 08-29-2022 Patient encounter procedure Sharla ARRIAZA [facility] Start: 08-25-2022 End: 08-25-[address] DOCTOR HALEY Facility:[facility] Start: 08-17-2022 End: 08-18-[address] DOCTOR HALEY Facility:[facility] Start: 08-12-2022 Encounter for preprocedural cardiovascular examination DR SHARLA ARRIAZA . [facility] Start: 08-12-2022 Encounter for preprocedural laboratory examination DR SHARLA ARRIAZA . [facility] Start: 08-09-2022 End: 08-10-[address] SHARLA ARRIAZA . Facility:[facility] Start: 08-09-2022 End: 08-10-2022 Encounter for preprocedural cardiovascular examination DR SHARLA ARRIAZA . Facility:[facility] Start: 07-28-2022 End: 07-28-[address] DOCTOR HALEY Facility:[facility] Start: 06-14-2022 End: 06-15-[address] GIOVANNY ZAYAS Facility:[facility] Start: 06-14-2022 End: 06-14-2022 Patient encounter procedure DONALD BHAGAT [facility] Start: 05-01-2022 End: 05-01-2022 Patient encounter procedure Sharla ARRIAZA [facility] Start: 04-27-2022 End: 04-27-2022 ambulatory DO Monica G Cori Work Phone: [facility] Work Phone: Start: 04-27-2022 End: 04-27-2022 Patient encounter procedure DO Monica Cori Work Phone: [facility] [place] Work Phone: Start: 04-19-2022 End: 04-20-[address] GIOVANNY ZAYAS Facility:[facility] Start: 04-19-2022 End: 04-19-2022 Patient encounter procedure DONALD BHAGAT [facility] Start: 10-28-2021 End: 10-28-2021 Lab Drop off Sharla ARRIAZA [facility] Start: 10-28-2021 End: 10-28-2021 Patient encounter procedure Sharla ARRIAZA [facility] Start: 10-06-2021 End: 10-06-[address] SHARLA ARRIAZA . Facility:[facility] Start: 09-28-2021 End: 09-29-[address] SHARLA ARRIAZA . Facility:[facility] Start: 08-17-2021 End: 08-17-2021 Patient encounter procedure Sharla ARRIAZA [facility] Procedures Date Procedure Procedure Detail Performing Clinician Start: 07-21-2024 Adult depression screening assessment Jeana Hernandez DO Work Phone: Start: 04-23-2024 [facility] streptococcus [facility] a Karen Corbett CONTROL PANEL OPERATOR CRUDE UNIT-FINE SANDER Work Phone: Start: 04-11-2024 Follow-up visit Follow-up KEERTHI Lopez JOSE ALFREDO Start: 07-30-2023 MR prostate wo/w con MD Sharla Arriaza Work Phone: Start: 03-22-2023 Adult depression screening assessment Sarah Stone DIGESTER OPERATOR HELPER Start: 11-27-2022 Colonoscopy Sarah Stone DIGESTER OPERATOR HELPER Start: 11-08-2022 History of transurethral prostatectomy S/P TURP (status post transurethral resection of prostate) Vannesa HERNÁNDEZ Work Phone: Start: 08-29-2022 Cystoscopic removal of ureteric stent Sharla ARRIAZA Start: 08-17-2022 Transurethral prostatectomy Sharla ARRIAZA Start: 04-27-2022 MRI of head DO Monica Persaud Work Phone: Start: 10-06-2021 Extracorporeal shockwave lithotripsy of calculus of kidney Sharla ARRIAZA Start: 03-12-2020 Cystoscopy Sharla ARRIAZA Start: 08-31-2016 Transurethral prostatectomy Sharla ARRIAZA Start: 07-04-2016 Cystoscopy Sharla ARRIAZA Start: 09-30-2014 Cystoscopy Sharla ARRIAZA Start: 04-21-2010 Transurethral prostatectomy Sharla ARRIAZA Start: 02-04-2010 Urodynamic studies Sharla ARRIAZA Start: 07-31-2008 Transrectal biopsy of prostate using ultrasound guidance Sharla ARRIAZA Start: 07-31-2005 Cystoscopy Sharla ARRIAZA Appendectomy Sharla ARRIAZA Tonsillectomy Sharla ARRIAZA Plan of Treatment Date Care Activity Detail Author Start: 11-27-2032 Screening for malignant neoplasm of colon [facility] Start: 11-27-2025 Screening for malignant neoplasm of colon FIT-DNA [facility] Start: 07-23-2025 End: 07-23-2025 Patient encounter procedure 07/23/2025 11:15 AM EDT Office Visit [facility] [address] [place] [phone] Keerthi Veliz MD [address] [place] [id number] [facility] Start: 07-21-2025 Adult BMI Screening Adult BMI Screening [facility] Start: 07-21-2025 Depression Screening Depression Screening [facility] Start: 07-21-2025 Medicare Annual Wellness (AWV) Medicare Annual Wellness (AWV) [facility] Start: 07-21-2025 Medicare Annual Wellness Visit Medicare Annual Wellness Visit [facility] Start: 07-21-2025 Tobacco Screening Tobacco Screening [facility] Start: 06-01-2025 Adult BMI Screening Adult BMI Screening [facility] Start: 06-01-2025 Tobacco Screening Tobacco Screening [facility] Start: 04-27-2025 End: 04-27-2025 Patient encounter procedure 04/27/2025 10:10 AM EST Office Visit [facility] [address] [place] [address] Vannesa Reyes, [place] [address] [place] [address] [facility] Start: 04-11-2025 Adult BMI Screening Adult BMI Screening [facility] Start: 04-11-2025 Tobacco Screening Tobacco Screening [facility] Start: 04-07-2025 End: 04-07-2025 Patient encounter procedure [facility] Start: 01-09-2025 ambulatory Ambulatory Facility:[facility] Start: 12-01-2024 Influenza vaccination [facility] Start: 07-31-2024 Tobacco Screening Tobacco Screening [facility] Start: 07-30-2024 Adult BMI Screening Adult BMI Screening [facility] Start: 07-30-2024 Tobacco Screening Tobacco Screening [facility] Start: 06-27-2024 DTaP,Tdap and Td Vaccines (2 - Td or Tdap) DTaP,Tdap and Td Vaccines (2 - Td or Tdap) [facility] Start: 05-23-2024 Adult BMI Screening Adult BMI Screening [facility] Start: 05-23-2024 Tobacco Screening Tobacco Screening [facility] Start: 04-24-2024 Adult BMI Screening Adult BMI Screening [facility] Start: 04-24-2024 Tobacco Screening Tobacco Screening [facility] Start: 04-11-2024 End: 04-11-2025 Echo complete W/O contrast Echo complete W/O contrast Echocardiography Routine Dyspnea on exertion Expected: 04/11/2024, Expires: 04/11/2025 [employer] Work Phone: Comment on above: Expected: 04/11/2024, Expires: Start: 04-11-2024 End: 04-11-2025 Exercise stress test study Stress test (exercise only) [facility] Routine Dyspnea on exertion Expected: 04/11/2024, Expires: 04/11/2025 [facility] Comment on above: Expected: 04/11/2024, Expires: Start: 04-07-2024 End: 04-07-2025 QUANTIFERON TB GOLD QUANTIFERON TB GOLD Lab Routine Psoriasis vulgaris (CMS/HCC) Encounter for long-term (current) use of medications Expected: 04/07/2024 (Approximate), Expires: 04/07/2025 [facility] Work Phone: Comment on above: Expected: 04/07/2024 (Approximate), Expi res: 04/07/2025 Start: 04-04-2024 Fall Risk Screening Fall Risk Screening [facility] Start: 03-22-2024 Adult BMI Screening Adult BMI Screening [facility] Start: 03-22-2024 Depression Screening Depression Screening [facility] Start: 03-22-2024 Fall Risk Screening Fall Risk Screening [facility] Start: 03-22-2024 Tobacco Screening Tobacco Screening [facility] Start: 12-02-2023 COVID-19 Vaccine () COVID-19 Vaccine () [facility] Start: 12-02-2023 Influenza vaccination [facility] Start: 10-16-2023 End: 10-16-2023 Patient encounter procedure 10/16/2023 9:15 AM EDT Office Visit [facility] [address] [place] [phone] Keerthi Veliz MD [address] [place] [address] [id number] [facility] Start: 09-25-2023 End: 09-25-2023 Patient encounter procedure 09/25/2023 10:15 AM EDT Office Visit [facility] [address] [place] [phone] Keerthi Veliz MD [address] [facility] [place] [phone] [facility] Start: 05-02-2023 End: 05-02-2023 Patient encounter procedure 05/02/2023 9:15 AM EST Office Visit [facility] [address] [place] [phone] Jeana Currie DO [address] [place] [address] [facility] Start: 04-26-2023 End: 04-26-2023 Patient encounter procedure [facility] Start: 04-24-2023 End: 04-24-2024 US Retroperitoneum Ultrasound retroperitoneal complete Imaging Routine Flank pain Expected: 04/24/2023, Expires: 04/24/2024 [facility] Comment on above: Expected: 04/24/2023, Expires: 5 Start: 04-24-2023 End: 04-24-2024 US Scrotum and testicle Ultrasound scrotum Imaging Routine Non-recurrent unilateral inguinal hernia without obstruction or gangrene Expected: 04/24/2023, Expires: 04/24/2024 [facility] Work Phone: Comment on above: Expected: 04/24/2023, Expires: 5 Start: 12-01-2022 COVID-19 Vaccine ( season) COVID-19 Vaccine ( season) [facility] Start: 12-01-2022 Influenza vaccination Influenza Vaccine [facility] Start: 2022 Pneumococcal Vaccine: 65+ Years (1 of 1 - PCV) Pneumococcal Vaccine: 65+ Years (1 of 1 - PCV) [facility] Start: 09-23-2007 Administration of varicella zoster vaccine Zoster (Shingles) Vaccine (1 of 2) [facility] Start: 09-23-2007 Pneumococcal Vaccine: 65+ Years (1 of 1 - PCV) Pneumococcal Vaccine: 65+ Years (1 of 1 - PCV) [facility] Start: 09-23-1975 Adult BMI Follow Up Plan Adult BMI Follow Up Plan [facility] Start: 1955 Medicare Annual Wellness (AWV) Medicare Annual Wellness (AWV) [facility] Start: 1955 Medicare Annual Wellness Visit Medicare Annual Wellness Visit [facility] Start: 1955 Screening for malignant neoplasm of colon [facility] Immunizations Immunization Date Immunization Notes Care Provider Brittnee agustin 03-03-2022 SARS-CoV-2 (COVID-19 ) [id number] Sharla ARRIAZA [facility] 08-20-2021 SARS-CoV-2 (COVID-19 ) mRNA-1273 vaccine Sharlaastrid ARRIAZA [facility] 03-02-2021 SARS-CoV-2 (COVID-19 ) mRNA-1273 vaccine Sharla ARRIAZA [facility] 02-20-2021 SARS-CoV-2 (COVID-19 ) mRNA-1273 vaccine Sharlaastrid ARRIAZA [facility] 01-23-2021 SARS-CoV-2 (COVID-19 ) mRNA-1273 vaccine Sharla ARRIAZA [facility] 06-27-2014 tetanus toxoid, redu juventino diphtheria toxoid, and acellular pertussis vaccine, adsorbed Sharla ARRIAZA [facility] Payers Date Payer Category Payer Commercial [facility] Member Subscriber Plan / Payer (Effective 2024-Present) Name: Emilie Ponce Relation to Subscriber: Self Name: Emilie Ponce Payer ID: Not on file Group ID: Not on file Type: Not on file Address: [place] [id number] 2024 Medicare (Managed Care) [employer] [id number] 2024 Private Health Insurance [id number] 2024 Unknown [id number] 2023 Self-pay [id number] 2022 Medicare [id number]. [id number] 2022 Medicare [id number] 2014 Blue Cross Blue Shield 1.2.8 [id number] 2014 Blue Cross Blue Shie ld Managed Care - Other [facility] [id number] 2014 Unknown [place] H[place]/PPO/TRUST [id number] 2014-Present [phone] [address] [place] [address] [id number]. [id number] 1959 Unknown [id number] 1957 Unknown [id number] 2.16.840.1.385418.3.579. 2.593 1957 Unknown [id number] 2.16.840.1.629064.3.579. 2.593 1957 Unknown [id number] 2.16.840.1.182087.3.579. 2.593 1957 Unknown [id number] 2.16.840.1.099791.3.579. 2.593 1957 Unknown [id number] 2.16.840.1.100527.3.579. 2.593 1957 Unknown [id number] 2.16.840.1.746625.3.579. 2.593 1957 Unknown [id number] 2.16.840.1.080543.3.579. 2.593 1957 Unknown [id number] 2.16.840.1.801599.3.579. 2.593 1957 Unknown [id number] 2.16.840.1.868039.3.579. 2.1286 1957 Unknown [id number] 2.16.840.1.106061.3.579. 2.1286 1957 Unknown [id number] 2.16.840.1.515567.3.579. 2.1286 1957 Unknown [id number] 2.16.840.1.795457.3.579. 2.1286 1957 Unknown [id number] 2.16.840.1.069159.3.579. 2.128 1957 Unknown [id number] 2.16.840.1.935772.3.579. 2.128 1957 Unknown [id number] 2.16840.1.781117.3.579. 2.1259 1957 Unknown [id number] 2.16.840.1.020148.3.579. 2.125 1957 Unknown [id number] 2.840.1.113820.3.579. 2.9 1957 Unknown [id number] 2.840.1.491091.3.579. 2.72 1957 Unknown [id number] 2.16840.1.468584.3.579. 2.72 1957 Unknown [id number] 2.16840.1.948381.3.579. 2.72 1957 Unknown [id number] 2.16840.1.416460.3.579. 2.727 1957 Unknown [id number] 2.840.1.608939.3.579. 2.72 1957 Unknown [id number] 2.16840.1.267602.3.579. 2.72 1957 Unknown [id number] 2.16840.1.460282.3.579. 2.727 Medicare Medicare-OP No Part B [id number] Medicare Medicare [id number] Unknown [id number] 2.16840.1.256345.3.579. 2.531 Social History Date Type Detail Facility Start: 08-17-2021 End: 12-24-2024 Tobacco smoking status Never smoked tobacco (finding) [facility] Start: 04-19-2022 Tobacco smoking status Never [facility] Start: 11-08-2022 End: 04-06-2023 Sex Assigned At Male [facility] Start: 1955 Sex Assigned At Male [facility] Start: 07-17-2022 End: 11-08-2022 Tobacco use and exposure Smokeless tobacco non-user [facility] Start: 04-06-2023 End: 10-27-2024 Alcoholic beverage intake Ex-drinker (finding) [facility] Start: 11-08-2022 End: 04-06-2023 History of Social function [facility] Start: 04-06-2023 Gender identity Identifies as male gender (finding) [facility] Start: 04-06-2023 Sexual orientation Heterosexual (finding) [facility] Start: 04-11-2024 End: 07-21-2024 Alcoholic beverage intake Lifetime non-drinker (finding) [facility] Start: 1955 Sex assigned at Not on file [facility] Start: 11-05-2014 End: 09-28-2018 Sex Male (finding) [facility] Sexual Orientation [facility] Functional Status Date Assessment Result Facility 01-07-2024 Functional Status N/A [facility] 07-02-2023 Functional Status N/A [facility] 10-09-2022 Functional Status N/A [facility] 05-01-2022 Functional Status N/A [facility] 04-19-2022 Functional Status N/A [facility] 10-28-2021 Functional Status N/A [facility] Clinical Notes 08-16-2021 to 12-24-2024 BETTY Oro - 10/27/2024 3:00 PM Noreen Hernandez DO - 07/21/2024 9:30 AM EDTPatient InstructionsAttaLeonard Veliz MD - 06/03/2024 10:30 AM ESTPatient Instructions Note Date & Type Note Facility 12-24-2024 Hospital Discharge instructions Patient Education 12/24/2024 09:50:39 Hematuria, Adult Hematuria, Adult Hematuria is blood [...] Follow these instructions at home: Medicines Take zwoo-gex-aghfwgq and prescription medicines only as told by [...] or the blood stops without treatment. Take ahpw-xnn-gzuzhku and prescription medicines only as told by your health care provider. Drink enough fluid to keep your urine pale yellow. This information is not intended to replace advice given to you by your health care provider. Make sure you discuss any questions you have with your health care provider. Document Revised: 11/17/2020 Document Reviewed: 11/17/2020 [email or web address] Patient Education 2023 [employer]. Follow Up Care 12/22/2024 10:33:59 With:SOFIYA MAGANA, Sharla Layton, URL Address: [address] [place] [address]- When: Unknown Comments:F/U pending cysto [facility] Note Patient Education Urology Hematuria, Adult Hematuria is [...] these instructions at home: Medicines ??? Take hbyy-egr-vnukqaq and prescription medicines only as told by [...] the blood stops without treatment. ??? Take qnhz-txk-gwlvwtw and prescription medicines only as told by your health care provider. ??? Drink enough fluid to keep your urine pale yellow. This information is not intended to replace advice given to you by your health care provider. Make sure you discuss any questions you have with your health care provider. Document Revised: 11/17/2020 Document Reviewed: 11/17/2020 [email or web address] Patient Education ? [address] [facility] 10-27-2024 History of Present illness Narrative Follow up Diagnosis: Psoriasis Location: arms, axillae, and legs. (16% BSA at baseline; 0% BSA while on treatment) Last visit: 6 months ago Symptoms: occasional flares that clear with treatments Status: controlled Procedure performed: Negative TB test Date of procedure: 04/07/2024 Previous Treatment: Taltz (07/2020-04/2024) Current treatment: Betamethasone dipropionate cream 0.05% (started 06/07/2020), Clobetasol foam (started 06/07/2020) and Skyrizi (started 05/04/2024; first follow up since starting) All pertinent medical history, medications, and allergies were reviewed. General Exam: alert, oriented to person, place, and time, normal affect, well appearing A focused exam completed based on patient reported problems, see below: Skin Exam 1. PSORIASIS VULGARIS Generalized Clear today. PIH remains on the left calf because he flared slightly since he missed his dose last week due to insurance requiring a PA. Improved. BSA 0%. Patient is much more comfortable today with psoriasis being under good control. Patient states they now sleep well and the quality of their professional and personal life is greatly improved. Patient denies any side effects from treatment with Skyrizi. Patient to continue working with specialty pharmacy and our office biologic coordinator to obtain refills. Continue Skyrizi 150 mg subcutaneous every 12 weeks as he is clear when insurance provides his medication on time. Yearly TB test is up to date as of 04/2024. Related Medications hydrocortisone 2.5 % ointment Apply topically 2 (two) times a day Apply thin layer to affected areas of the face bid prn for flares betamethasone dipropionate 0.05 % cream Apply to affected areas, up to twice a day when flared, do not use one the face, groin, or underarms, 30 day supply 2. ENCOUNTER FOR LONG-TERM (CURRENT) USE OF MEDICATIONS Next Visit: 6 months documented in this encounter [facility] 09-08-2024 Hospital Discharge instructions Patient Education 09/08/2024 [...] include: ?8 oz (237 mL) of milk, enxvvbn-bezjeudxgvhk-donov milk, and calcium-fortifiedfruit juice. Calcium-fortified means that [...] ?Spinach (cooked), rhubarb, beets, sweet potatoes, and Andorran chard. ?Peanuts. ?Potato chips, belgian fries, and baked potatoes with skin on. ?Nuts and nut products. ?Chocolate. If you regularly take a diuretic medicine, make sure to eat at least 1 or 2 servings of fruits or vegetables that are high in potassium each day. These include: ?Avocado. ?Banana. ?Marcus, prune, carrot, or tomato juice. ?Baked potato. [...] magnesium, fish oil, or vitamin B6. Take bkte-xzb-bdbarbt and prescription medicines only as told by [...] Casseroles. Pizza. Lasagna. Frozen meals. Potato chips. Spanish fries. The items listed above may not [...] provider. Document Revised: 06/29/2022 Document Reviewed: 06/29/2022 [employer] Patient Education 2023 Relypsa. Follow Up Care 04/18/2024 10:43:06 With:SOFIYA MAGANA, Sharla Layton, URL Address: [facility] [address] , [place] [address]- When: Unknown [facility] [place] 09-08-2024 Note Patient Education Nephrology Dietary Guidelines to Help [...] ? 8 oz (237 mL) of milk, nhefqvr-ptrhcmhvlrfm-yllqm milk, and calcium-fortifiedfruit juice. Calcium-fortified means that [...] Spinach (cooked), rhubarb, beets, sweet potatoes, and Andorran chard. ? Peanuts. ? Potato chips, belgian fries, and baked potatoes with skin on. ? Nuts and nut products. ? Chocolate. ??? If you regularly take a diuretic medicine, make sure to eat at least 1 or 2 servings of fruits or vegetables that are high in potassium each day. These include: ? Avocado. ? Banana. ? Marcus, prune, carrot, or tomato juice. ? Baked [...] fish oil, or vitamin B6. ??? Take fwfl-cfz-mwjaapd and prescription medicines only as told by your health (more content not included)... [facility] 07-21-2024 History of Present illness Narrative Subjective SUBJECTIVE: Patient ID: Emilie Ponce is a 68 y.o. male, established [...] Do you have a durable power of land management forester?: (!) No Cognitive Screening Do you have [...] medicare wellness exam documented in this encounter [facility] 07-21-2024 Instructions Jeana Hernandez DO - 07/21/2024 9:30 AM EDT If constipation symptoms not improved in next 4 weeks contact office. The following attachments cannot be sent through Care Everywhere.Constipation in adults (Welsh)documented in this encounter [facility] 06-03-2024 History of Present illness Narrative Images from the original note were not included. [address] [place] [phone] Patient: Emilie Ponce Date of : 1955 Encounter Date: 06/03/2024 SUBJECTIVE: Chief Complaint: Chief Complaint Patient presents with Follow-up Shingles in left ear Patient ID: Emilie Ponce is a 68 y.o. male. Pleasant 70-year-old gentleman with past medical history of psoriasis currently on immuno modulatory medications was recent switch from Taltz to Skyrizi. 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 Here for interval assessment of ear pain/tooth pain. Symptom onset on , progressed will Sunday. [place] left sided facial pain which extended to the ear. Was recently evaluated in [facility] ER on 06/01 and diagnosed as herpes [...] prednisone and acyclovir. All questions answered KEERTHI VELIZ MD Family Medicine Physician [facility] 06/03/24 This note was completed with voice recognition software. The document was reviewed for errors however some may still be present. Please do not hesitate to contact/Epic msg the author to verify any questions/concerns. documented in this encounter [facility] 06-02-2024 History of Present illness Narrative [...] Visit: As scheduled documented in this encounter [facility] 04-23-2024 History of Present illness Narrative Chief Complaint Patient presents with Sore Throat There were no vitals filed for this visit. Ivon Cornejo CMA Patient is here for nurse visit. They are here for swab for possible strep throat. Ivon Cornejo CMA documented in this encounter [facility] 04-11-2024 History of Present illness Narrative Images from the original note were not included. [address] [place] [phone] Patient: Emilie Ponce Date of : 1955 Encounter Date: 04/11/2024 SUBJECTIVE: Chief Complaint: Chief Complaint Patient presents with Follow-up Almost passed out playing racket ball Patient ID: Emilie Ponce is a 68 y.o. male. 68-year-old gentleman here today for ER/urgent care follow-up. Seen at [place] ER for intermittent lightheadedness, dizziness and palpitations. [...] Patient was generally pretty active - plays [email or web address] game without symptom. Second game he started haing symptoms on dizziness, sweats, LH. 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 KEERTHI VELIZ MD Family Medicine Physician [facility] 04/11/24 This note was completed with voice recognition software. The document was reviewed for errors however some may still be present. Please do not hesitate to contact/Epic msg the author to verify any questions/concerns. documented in this encounter [facility] 04-11-2024 Instructions Keerthi Veliz MD - 04/11/2024 8:30 AM EST Atarax as needed, up to 3 times in a day. If trailing Cannabis product attempt to find the following: -Max 5mg in a day -THC less than 5% -CBD between 10-20% documented in this encounter [facility] 04-07-2024 History of Present illness Narrative Follow [...] beginning April 2024. Plan to switch to Skyrizi; per biologic coordinator we will send to [...] Visit: 1 year documented in this encounter [facility] 01-07-2024 Hospital Discharge instructions Patient Education 01/07/2024 [...] treatment? Where to find more information The [employer] Society: www.cancer.org [employer] U[employer] Association: www.auanet.org Contact a health care [...] provider. Document Revised: 09/12/2021 Document Reviewed: 09/12/2021 [email or web address] Patient Education 2023 Relypsa. Follow Up Care 07/02/2023 10:58:48 With:SOFIYA MAGANA, RICHELLE Jenkins Address: [facility] [address] , [place] [phone] When: Unknown Comments:1 yr w/ PSA [facility] [place] 01-07-2024 Note Patient [...] Where to find more information ? The [place] [employer]: www.cancer.org ? [employer] U[employer] Association: www.auanet.org Contact a health care [...] rectum. (more content not included)... [facility] 07-31-2023 History of Present illness Narrative Subjective Patient ID: Emilie Ponce is a 67 y.o. male. MURIEL [...] the head/face (behind the right eye and lutheran area). He has been taking tylenol and [...] records. He states it was completed in [place], in an office on [address] [place] also [...] Affect: Mood normal. Behavior: Behavior normal. Assessment/Plan [facility] ED note reviewed. I discussed possibly needing [...] order MRI for new deaily persistent headache. FU PRN. Lokesh was seen today for headache. Diagnoses and all orders for this visit: New daily persistent headache Tenderness over maxillary sinus Post-nasal drip Other orders - methylPREDNISolone (MEDROL, CRISTIAN,) 4 mg tablet; Take 1 tablet (4 mg total) by mouth in the morning. follow package directions. SETH Shetty 08/01/23 0946 documented in this encounter [facility] 07-31-2023 Miscellaneous Notes Addended by: JORDAN LOPEZ on: 08/01/2023 09:46 AM Modules accepted: Level of Service documented in this encounter [facility] 07-31-2023 Note Addended by: JORDAN LOPEZ on: 08/01/2023 09:46 AM Modules accepted: Level of Service [facility] 07-02-2023 Hospital Discharge instructions Patient Education [...] treatment? Where to find more information The [employer] Cancer Society: www.cancer.org [employer] Urological Association: www.auanet.org Contact a health care [...] provider. Document Revised: 09/12/2021 Document Reviewed: 09/12/2021 [email or web address] Patient Education 2022 Relypsa. Follow Up Care 01/08/2023 10:36:36 With:SOFIYA MAGANA, Sharla Layton, URL Address: [facility] [address] [place] [phone] When: Unknown Comments:6 mos w/ PSA [facility] 05-23-2023 History of Present illness Narrative Images from the original note were not included. [facility] [address] [facility] [phone] CONSULT NOTE Emilie Portilloa 67 y.o. CHIEF COMPLAINT Chief Complaint Patient presents with Hernia Unilateral inguinal hernia, referred by Dr. Veliz Emilie Ponce is a 67-year-old male who [...] and does not rest. He also plays [employer] 2 times a week. He is very [...] 11/27/2022 Performed by Jeana Currie DO at [facility] COLONOSCOPY N/A 01/07/2018 Performed by Jeana Currie DO at [facility] FINGER SURGERY Left LEFT THUMB TONSILLECTOMY [...] patient/family/caregiver Referring and communicating with other health daycare provider No primary diagnosis found. Jeana Currie DO This note was created with the assistance of a speech recognition program. While intending to generate a timely document that accurately reflects the content of the visit, no guarantee can be provided that every grammatical or spelling mistake has been or will be identified or corrected. Thank you for your understanding. documented in this encounter [facility] 04-24-2023 History of Present illness Narrative Images from the original note were not included. [address] [place] [address] [address] [facility] [phone] Patient: Emilie Ponce Date of : 1955 [...] or gangrene - Ultrasound scrotum; Future - [facility] General Surgery - [facility] [place] [place]; Future 67-year-old gentleman who has recently had a colonoscopy completed by Dr. Potts. Will refer to Dr. Currie consideration for surgical intervention. KEERTHI VELIZ MD Family Medicine Physician [facility] 04/24/23 This note was completed with voice recognition software. The document was reviewed for errors however some may still be present. Please do not hesitate to contact/Epic ms the author to verify any questions/concerns. documented in this encounter [facility] 04-04-2023 History of Present illness Narrative Date of Call: April 04, 2023 Date of Positive Fall Risk Screenin03/22/2023 PT Referral Placed by PCP: No Result of Call: Answered Patient consent to enroll in Program: No Status of PT Referral: Patient declined Goals: Resources Provided: Additional Comments: Patient completed fall risk screening but declines program participation. documented in this encounter [facility] 10-09-2022 Hospital Discharge instructions Patient Education [...] Follow these instructions at home: Medicines Take ejwm-tuf-ysoebsr and prescription medicines only as told by [...] or the blood stops without treatment. Take auiy-yma-ifrowbe and prescription medicines only as told by your health care provider. Drink enough fluid to keep your urine pale yellow. This information is not intended to replace advice given to you by your health care provider. Make sure you discuss any questions you have with your health care provider. Document Revised: 11/17/2020 Document Reviewed: 11/17/2020 [email or web address] Patient Education 2022 Relypsa. Follow Up Care 10/02/2022 10:55:28 With:SOFIYA MAGANA, Sharla Layton, URL Address: [facility] [address] , [place] [address]- [phone] When:Within 3 Month(s) [facility] 08-29-2022 Hospital Discharge instructions Patient Education [...] including vitamins, herbs, eye drops, creams, and qsfq-hln-htjxbuj medicines. Any problems you or family members [...] provider tells you to take them. Taking iacy-glm-omujufw medicines, vitamins, herbs, and supplements. Surgery safety [...] provider. Document Revised: 12/13/2021 Document Reviewed: 12/13/2021 [email or web address] Patient Education 2022 Relypsa. Follow Up Care 08/24/2022 09:38:00 With:SOFIYA MAGANA, Sharla Layton, URL Address: [facility] [address] , [place] [address]- Business (1) When: Unknown [facility] 05-01-2022 Hospital Discharge instructions Patient Education [...] include: ?Spinach. ?Rhubarb. ?Beets. ?Potato chips and belgian fries. ?Nuts. If you regularly take a diuretic medicine, make sure to eat at least 1 2 fruits or vegetables high in potassium each day. These include: ?Avocado. ?Banana. ?Marcus, prune, carrot, or tomato juice. ?Baked potato. [...] Casseroles. Pizza. Lasagna. Frozen meals. Potato chips. Spanish fries. Summary You can reduce your risk [...] 07/14/2011 Document Revised: 07/09/2019 Document Reviewed: 02/27/2017 [email or web address] Patient Education 2020 Relypsa. Follow Up Care 10/28/2021 11:17:16 With:SOFIYA MAGANA, Sharla Layton, URL Address: [facility] [address] [place] [address]- When: Unknown [facility] [place] 04-19-2022 Hospital Discharge instructions Patient Education 04/19/2022 13:43:01 Kidney Stones, Vjzu-ni-Iukw Kidney Stones Kidney stones are rock-like masses [...] Follow these instructions at home: Medicines Take plcc-sns-uykpbkj and prescription medicines only as told by [...] 09/04/2008 Document Revised: 08/05/2019 Document Reviewed: 08/05/2019 [email or web address] Patient Education 2019 Relypsa. Follow Up Care 04/17/2022 09:12:19 With:SOFIYA MAGANA, Sharla Layton, URL Address: [address] [place], [place] [id number]- When: Unknown [facility] 10-28-2021 Hospital Discharge instructions Patient Education [...] one of these risk factors: ?Being of -Swiss descent. ?Having a family history of prostate [...] you: Are older than age 55. Are -Swiss. Have a father, brother, or uncle who [...] 12/28/2017 Document Revised: 03/01/2018 Document Reviewed: 12/28/2017 [email or web address] Patient Education 2020 [employer] Follow Up Care 08/17/2021 11:01:21 With:SOFIYA MAGANA, Sharla Layton, URL Address: [facility] [address] , [place] [phone] When:Within 6 Month(s) Comments:w/ PSA and KUB [facility] 08-16-2021 Hospital Discharge instructions Patient Education [...] one of these risk factors: ?Being of -Swiss descent. ?Having a family history of prostate [...] you: Are older than age 55. Are -Swiss. Have a father, brother, or uncle who [...] 12/28/2017 Document Revised: 03/01/2018 Document Reviewed: 12/28/2017 [email or web address] Patient Education 2020 Relypsa. Follow Up Care 06/27/2021 09:31:40 With:Sharla ARRIAZA MD, URL Address: [facility] [address], [place] [address]- When:10/17/2021 [facility] Evaluation + Plan note Future Appointments Appointment Date:10/28/2021 09:45:00 AM Scheduled Provider:Sharla [facility]AZA [facility] Type:[facility]O Office Visit Diagnostic Tests PendingPSA Total 08/17/21 [facility] Evaluation + Plan note Future Appointments Appointment Date:05/01/2022 09:15:00 AM Scheduled Provider:[facility]RIAZA [facility]O Office Visit Diagnostic Tests PendingPSA Total 10/28/21 [facility] Evaluation + Plan note Future Appointments Appointment Date:05/01/2022 09:15:00 AM Scheduled Provider:Sharla ARRIAZA MD [facility] Type:[facility]O Office Visit Diagnostic Tests PendingCalculi Analysis Urinary 10/28/21 [facility] Evaluation + Plan note Future Appointments Appointment Date:05/01/2022 09:15:00 AM Scheduled Provider:Sharla ARRIAZA MD Location:[facility] Appointment Type:URO Office Visit [facility] Evaluation + Plan note Future Appointments Appointment Date:10/30/2022 10:30:00 AM Scheduled Provider:Sharla ARRIAZA MD Location:[facility] Appointment Type:URO Office Visit Diagnostic Tests PendingPSA Total 05/01/22 [facility] Evaluation + Plan note Future Appointments Appointment Date:10/30/2022 10:30:00 AM Scheduled Provider:Sharla ARRIAZA MD [facility] Type:[facility]O Office Visit [facility] Evaluation + Plan note Future Appointments Appointment Date:02/05/2023 11:30:00 AM Scheduled Provider:Sharla ARRIAZA MD Location:[facility] Appointment Type:URO Office Visit [facility] Evaluation + Plan note Future Appointments Appointment Date:01/08/2023 09:30:00 AM Scheduled Provider:Sharla ARRIAZA MD [facility] Type:[facility]O Office Visit [facility] Evaluation + Plan note Future Appointments Appointment Date:01/07/2024 11:15:00 AM Scheduled Provider:Sharla ARRIAZA MD [facility] Type:URO Office Visit Diagnostic Tests PendingPSA Total 07/02/23 [facility] Evaluation + Plan note Future Appointments Appointment Date:01/09/2025 10:45:00 AM Scheduled Provider:Sharla ARRIAZA MD Location:[facility] Appointment Type:URO Office Visit Diagnostic Tests PendingPSA Total 01/07/24 [facility] Evaluation + Plan note Future Appointments Appointment Date:01/09/2025 10:45:00 AM Scheduled Provider:Sharla ARRIAZA MD Location:[facility] Appointment Type:URO Office Visit [facility] Evaluation note No assessment inform ation available [facility] Work Phone: Evaluation note Diagnosis Psoriasis vulgaris ([facility])- Primary Other psoriasis Encounter for long-term (current) use of medications Encounter for long-term (current) use of other medications documented in this encounter [facility]* Diagnosis Palpitation- Primary Palpitations Dyspnea on exertion Other dyspnea and respiratory abnormality documented in this encounter [facility]* Diagnosis Pharyngitis, unspecified etiology- Primary [facility] Diagnosis New daily persistent headache- Primary Tenderness over maxillary sinus Post-nasal drip Postnasal drip documented in this encounter [facility]* Diagnosis Non-recurrent unilateral inguinal hernia without obstruction or gangrene- Primary Flank pain Abdominal pain, unspecified site documented in this encounter [facility]* Diagnosis Acute epididymitis- Primary Other orchitis, epididymitis, and epididymo-orchitis, without mention of abscess Non-recurrent unilateral inguinal hernia without obstruction or gangrene Epididymitis Unspecified orchitis and epididymitis documented in this encounter [facility]* Diagnosis Herpes zoster without complication- Primary documented in this encounter [facility] Healthcare[facility]* Diagnosis Herpes zoster without complication- Primary [facility] Diagnosis Encounter for Medicare annual wellness exam- Primary Constipation, unspecified constipation type Benign prostatic hyperplasia, unspecified whether lower urinary tract symptoms present [facility] Diagnosis Psoriasis vulgaris- Primary Other psoriasis Encounter for long-term (current) use of medications Encounter for long-term (current) use of other medications [facility] Narrative No data available for this section [facility] Hospital Discharge instructions No data available for this section [facility] filedocumented in this encounter [facility] filedocumented in this encounter [facility] filedocumented in this encounter [facility] on filedocumented in this encounter [facility] on filedocumented in this encounter [facility] No data available for this section [facility] reason for referral (narrative)* Consultation (Routine) - Authorized Specialty Diagnoses / Procedures Referred By Kirstin abdalla Referred To Contact General Surgery Diagnoses Non-recurrent unilateral inguinal hernia without obstruction or gangrene Keerthi Veliz MD [address] [place] [id number] Jeana Currie DO [address] [place] [id number] Referral ID Status Reason Start Date Expiration Date Visits Requested Visits Authorized [id number] Authorized Specialty Services Required 04/24/2023 04/23/2024 1 1 [facility] Summary Purpose Family History No Family [...] section and content) DATE CREATED AUTHOR 03/10/2019 [facility] DATE CREATED AUTHOR AUTHOR'S ORGANIZ ATION 06/04/2021 [facility] dical Specialist DATE CREATED AUTHOR AUTHOR'S ORGANIZ ATION 09/10/2022 [facility] DATE CREATED AUTHOR AUTHOR'S ORGANIZ ATION 04/10/2024 [facility] DATE CREATED AUTHOR AUTHOR'S ORGANIZ ATION 06/02/2024 [facility] DATE CREATED AUTHOR AUTHOR'S ORGANIZ ATION 07/21/2024 [facility] DATE CREATED AUTHOR AUTHOR'S ORGANIZ ATION 10/28/2024 [facility] dical Specialists EPIC DATE CREATED AUTHOR AUTHOR'S ORGANIZ ATION 12/25/2024 [facility] Care Team (unrecognized sect ion and content) Team Status: Active Member Role Status Dates [...] Krishna Solorio DO Attending Provider Active Monica Persaud DO Primary Care Provider Active Team Status: Active Member Role Status Dates Monica Persaud DO Primary Care Provider Active Team Status: Inactive Member Role Status Dates Sharla Arriaza MD Attending Provider Active St art: July 30, 2023 End: July 30, 2023 NON STAFF Primary Care Provider Active Start: July 30, 2023 End: July 30, 2023 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 Relationship Specialty Start Date End Date Unallocated, Beth Hernandez MD [address] [place] [address] PCP - General Family Medicine 03/22/23 Embossing Toolsetter Relationship Specialty Start Date End Date Unallocated, MD Jony Aguilera[address] [facility] [place] [address] PCP - General Family Medicine 03/22/23 Embossing Toolsetter Relationship Specialty Start Date End Date Keerthi Veliz MD [address], [place], [place] [address] PCP - General Internal Medicine 03/22/23 Embossing Toolsetter Relationship Specialty Start Date End Date Keerthi Veliz MD [address], [place] [address] PCP - General Internal Medicine 03/22/23 Embossing Toolsetter Relationship Specialty Start Date End Date Keerthi Veliz MD [address], [place] [address] PCP - General Internal Medicine 03/22/23 Embossing Toolsetter Relationship Specialty Start Date End Date Keerthi Veliz MD [address], [place] [address] PCP - General Internal Medicine 03/22/23 Embossing Toolsetter Relationship Specialty Start Date End Date Keerthi Veliz MD [address], [place] [address] PCP - General Internal Medicine 03/22/23 Embossing Toolsetter Relationship Specialty Start Date End Date Unallocated, Beth Hernandez MD [address] [place] [address] PCP - General Family Medicine 03/22/23 Embossing Toolsetter Relationship Specialty Start Date End Date Keerthi Veliz MD [address] [facility] [place] [address] PCP - General Internal Medicine 03/22/23 Embossing Toolsetter Relationship Specialty Start Date End Date Keerthi Veliz MD [address] [facility] [place], [place] [id number] PCP - General Internal Medicine 03/22/23 Embossing Toolsetter Relationship Specialty Start Date End Date Unallocated, Beth Hernandez MD [address] [place] [address] PCP - General Family Medicine 03/22/23 Goals (unrecognized section and content) [...] Hernia Unilateral inguinal hernia, referred by Dr. Veliz Specialty Diagnoses / Procedures Referred By Kirstin abdalla Referred To Contact General Surgery Diagnoses Non-recurrent unilateral inguinal hernia without obstruction or gangrene Keerthi Veliz MD [address] [place] [address] Jeana Currie DO [address] [place] [id number] Referral ID Status Reason Start Date Expiration Date Visits Requested Visits Authorized [id number] Pending Review Specialty Services Required 04/24/2023 04/23/2024 [...] BE BASED ON THE PRIMARY CLINICAL RECORDS. [facility] [employer] [facility]. provides no warranty or guarantee of the accuracy or completeness of information in this document.
--- NOTE | 2024-12-26 08:56 | CT_ITS ---
The [address] [address] Patient Name: EMILIE PONCE MRN: [id number] date: 1955 Sex: M Assigned Patient Location: LAB Current Patient Location: LAB Accession/Order Number: [id number] Exam Date: 12/26/2024 09:52 Report Date: 12/26/2024 10:39 At the request of: JELANI HERNÁNDEZ Procedure: CT abdomen pelvis wo/w con CT ABDOMEN AND PELVIS WITHOUT AND WITH INTRAVENOUS CONTRAST COMPARISON: 01/23/2024 CLINICAL DATA: Chronic right flank pain and hematuria. History of cysts. Spiral images were obtained through the abdomen and pelvis before and after intravenous administration of 100 mL of Omnipaque 300. This CT exam was performed using one or more following dose reduction techniques: Automated exposure control, adjustment of the mA and/or kV according to patient size, or use of iterative reconstruction technique. Limited cuts through the lung bases show no contributory pulmonary findings. ADC right sided pericardial cyst is again visualized. The kidneys are within normal limits for size, position and contour. Precontrast, there is a punctate stone at the lower pole of the left kidney. There are 3 stones at the lower pole on the right measuring up to 5 mm in size. No ureteral dilatation or stones are seen. There is a new tiny dependent hyperdense focus within the urinary bladder toward the right measuring 2 mm in size which may be a recently passed stone. There are right renal hypodensities which do not enhance following contrast administration compatible with cysts. The larger measures 7.4 cm. There is no hydronephrosis. The ureters are segmentally opacified. The urinary bladder is not well distended and the wall is borderline in thickness. There is an enlarged prostate with mass effect at the bladder trigone. There is funneling of contrast into the prostate suggesting previous TURP. No calcified gallstones are identified. Tiny hepatic cysts are again seen. The spleen, pancreas and adrenal glands show no acute findings. There is minor atherosclerotic plaque at the aorta and iliac arteries. No enlarged lymph nodes are visualized. No ascites is seen. The small bowel loops are not distended. There is mild colonic stool. Mild levoscoliotic curvature and degenerative changes are visualized at the spine. Images through the pelvis show normal caliber small bowel loops. There is a small amount of distal colonic stool. No diverticular disease is noted. No ascites is seen. A mildly patulous left inguinal ring is present containing fat. CT/CT abdomen pelvis wo/w con IMPRESSION: RIGHT PERICARDIAL, HEPATIC AND RIGHT RENAL CYSTS. BILATERAL NEPHROLITHIASIS. NO OBSTRUCTIVE UROPATHY. UNDER DISTENDED URINARY BLADDER IS SLIGHT WALL THICKENING. SUSPECTED TINY NEW BLADDER STONE. PROSTATE HYPERTROPHY. Impression dictated by: Sindy Warren M.D. 12/26/2024 10:39 AM Dictation Location: [place] [address] Electronically authenticated by: [id number] Y Date: 12/26/2024 10:39
[2024-12-26 09:22] LABS: Estimated GFR (African America >60 (>=60 mL/min/1.73m^2); Estimated GFR (Non-African Ame >60 (>=60 mL/min/1.73m^2)
== END 2024-12-26 08:49 | disposition home or self-care (01) ==
PROVIDERS: Pathology Anatomic Pathology & Clinical Pathology; PCP Student in an Organized Health Care Education/Training Program; Visit Provider Student in an Organized Health Care Education/Training Program
DX: R31.0 Gross hematuria (principal); N28.89 Other specified disorders of kidney and ureter; N20.0 Calculus of kidney; N40.1 Benign prostatic hyperplasia with lower urinary tract symptoms
CPT/HCPCS: 36415; 74178; 82565; Q9967

== ENCOUNTER 2024-12-31 16:36 | Outpatient (OUT) | payer MEDICARE, OTHER, SELFPAY ==
--- OUTSIDE RECORDS SUMMARY | 2024-12-24 10:12 | XMS_ITS ---
Author Name Auto Generated Organization [facility] Care Team Providers Care Administrative Staff Supervisor Name Role Phone Estephania Brown Admitting Unavailable Estephania Brown Attending Unavailable CORI, VALERIE Primary Care Unavailable CORI, VALERIE Primary Care Unavailable Andrea MONTIEL Attending Unavailable CORI, VALERIE Primary Care Unavailable Andrea MONTIEL Attending Unavailable CORI, VALERIE Primary Care Unavailable Andrea MONTIEL Attending Unavailable CORI, VALERIE Primary Care Unavailable Andrea MONTIEL Attending Unavailable CORI, VALERIE Primary Care Unavailable Estephania Brown Attending Unavailable BRIDGET, MUHAMID M Attending Unavailable BRIDGET, MUHAMID M Referring Unavailable BRIDGET, MUHAMID M Primary Care Unavailable UMER ORDAZ Attending Unavailable BRIDGET, MUHAMID M Referring Unavailable BRIDGET, MUHAMID M Primary Care Unavailable BRIDGET, MUHAMID M Primary Care Unavailable ISIDRO AVILEZ Attending Unavailable BRIDGET, WILNERHAMID M Attending Unavailable BRIDGET, MUHAMID M Referring Unavailable BRIDGET, MUHAMID M Primary Care Unavailable JEANA HERNANDEZ Attending Unavailable BRIDGET, MUHAMID M Referring Unavailable BRIDGET, MUHAMID M Primary Care Unavailable BRITT REYES Attending Unavailable BRITT REYES Attending Unavailable BRITT REYES Attending Unavailable PROBLEMS DATE TYPE CONDITION / CODE ATTENDING STATUS [facility] 07/17/2022 Unknown Benign prostatic hyperplasia without lower urinary tract symptoms / N40.0(ICD-10) JEANA HERNANDEZ [facility] 07/21/2024 [facility] / Z00.00(ICD-10) JEANA HERNANDEZ [facility] 07/21/2024 Unknown Constipation, unspecified / K59.00(ICD-10) CHELSYJEANA [facility] 06/01/2024 Unknown Zoster without complications / B02.9(ICD-10) ISIDRO AVILEZ [facility] 06/01/2024 Unknown Earache / FREETEXT(AOF) ISIDRO AVILEZ [facility] 06/01/2024 Unknown Earache / UNK(Unknown) ISIDRO AVILEZ A [facility] 04/23/2024 Unknown Acute pharyngiti s, unspecified / J02.9(ICD-10) UMER ORDAZ [facility] 04/11/2024 Unknown Palpitations / R00.2(ICD-10) [facility] 04/11/2024 Unknown Other forms of d yspnea / R06.09(ICD-10) [facility] 04/11/2024 Unknown Follow-up / FREETEXT(AOF) BRIDGETKEERTHI Active [facility] PROCEDURES No Procedure Records Found RESULTS URINE CYTOLOGY ([facility] LABS) Collected: 10:13 AM Status: F Source: [facility] TYPE CODE TESTS RESULT OUT OF RANGE REFERENCE UNITS LAB CD:[id number]( [facility]) Urine Cytology Diagnosis Info Unknown Result Comment: A:Urine,Ca n Catch:Voided Interpretation - Occasional atypical urothelial cells with degenerative changes; favor reactive process. Adequate cellularity for evaluation. CPT 48902 MicroScopic Description - Adequacy - Gross Description Site ID:A color dark Yellow fixative Alcohol Specimen designated Clean Catch received in alcohol preservative and labeled with the patient???s name, consists of 60ml clear dark yellow fluid. Electronically signed by : on: 12/29/2024 14:35:05 LAB CD:[id number]( [facility]) Number of Jars 1 Unknown LAB CD:[id number]( [facility]) Type of Service Technical Only Normal LAB CD:[id number]( [facility]) Method of Extraction Bladder Urine Normal LAB CD:[id number]( [facility]) Specimen Clean Catch Normal Performed By: #### [id number] #### [facility] [address] [place] [address] PATIENT EDUCATION Observed: 12/24/2024 9:50 AM Status: F Source: [facility] Patient Education Urology Hematuria, Adult Hematuria is blood in the urine. Blood may be visible in the urine, or it may be identified with a test. This condition can be caused by infections of the bladder, urethra, kidney, or prostate. Other possible causes include: ??? Kidney stones. ??? Cancer of the urinary tract. ??? Too much calcium in the urine. ??? Conditions that are passed from parent to child (inherited conditions). ??? Exercise that requires a lot of energy. [...] cancers. Follow these instructions at home: Medicines ??? Take schw-qcy-ecqqphx and prescription medicines only as told by your health care provider. ??? If you were prescribed an antibiotic medicine, take it as told by your health care provider. Do not stop taking the antibiotic even if you start to feel better. Eating and drinking ??? Drink enough fluid to keep your urine pale yellow. It is recommended that you drink 3?4 quarts (2.8?3.8 L) a day. If you have been diagnosed with an infection, drinking cranberry juice in addition to large amounts of water is recommended. ??? Avoid caffeine, tea, and carbonated beverages. These tend to irritate the bladder. ??? Avoid alcohol because it may irritate the prostate (in males). General instructions ??? If you have been diagnosed with a kidney stone, follow your health care provider's instructions about straining your urine to catch the stone. ??? Empty your bladder often. Avoid holding urine for long periods of time. ??? If you are female: ? After a bowel movement, wipe from front to back and use each piece of toilet paper only once. ? Empty your bladder before and after sex. ??? Pay attention to any changes in your symptoms. Tell your health care provider about any changes or any new symptoms. ??? It is up to you to get the results of any tests. Ask your health care provider, or the department that is doing the test, when your results will be ready. ??? Keep all follow-up visits. This is important. Contact a health care provider if: ??? You develop back pain. ??? You have a fever or chills. ??? You have nausea or vomiting. ??? Your symptoms do not improve after 3 days. ??? Your symptoms get worse. Get help right away if: ??? You develop severe vomiting and are unable to take medicine without vomiting. ??? You develop severe pain in your back or abdomen even though you are taking medicine. ??? You pass a large amount of blood in your urine. ??? You pass blood clots in your urine. ??? You feel very weak or like you might faint. ??? You faint. Summary ??? Hematuria is blood in the urine. It has many possible causes. ??? It is very important that you tell your health care provider about any blood in your urine, even if it is painless or the blood stops without treatment. ??? Take mezi-mpd-xcpymgk and prescription medicines only as told by your health care provider. ??? Drink enough fluid to keep your urine pale yellow. This information is not intended to replace advice given to you by your health care provider. Make sure you discuss any questions you have with your health care provider. Document Revised: 11/17/2020 Document Reviewed: 11/17/2020 [employer] Patient Education ? 2023 [employer] UROLOGY OFFICE/CLINIC NOTE Observed: 8:30 AM Status: F Source: [facility] Urology Office/Clinic Note Chief Complaint gross hematuria HPI Staff 69 yr old male here for gross hematuria. Dx: elevated PSA, kidney stone, BPH with obstruction, gross hematuria and epididymitis Potassium Citrate 10 mEq BID PSA due in December 2024 *Flomax 0.4mg qd - pt not taking, wants to discuss. pt states the blood in urine is an off and on issue. pt states this morning around 7 am his urine was mostly clear. pt has been remodeling and was on a ladder for a day painting, that night around midnight on going into the he woke to urinate and he had visible blood in urine. IPSS - 7 GUILLERMINA - 19 Pt. denies having incontinence Pt. denies having pain with urination Pt. is having gross hematuria since around 12/19/24 Pt. denies having abd pain Pt. denies having flank pain History of Present Illness I have reviewed and verified the staff HPI to be accurate for this encounter. Review of Systems PHQ Score Initial Depression Screen Score: 0 SCORE no fever, chills, malaise, myalgia. no abdominal pain, nausea, vomiting. Physical Exam Vitals & Measurements T: 37 ???C(Tympanic) HR: 56(Peripheral) RR: 16 BP: 130/74 HT: 178 cm HT: 70 in WT: 81.3 kg WT: 179.236 lb BMI: 25.66 General: Well developed, well nourished, in no acute distress. Assessment/Plan GUILLERMINA 19 1. Gross hematuria (R31.0: Gross hematuria) History of gross hematuria PO TURP 08/17/22 Shares he noted red blood in toilet on night of 12/19/24. He has passed two small blots clots since. Painless gross hematuria occurring intermittently since. He does note hematuria began after increased activity with home remodeling. Urine IO noted to be clear red/brown. UA today w/ large blood, proteinuria, small bili Never smoker. 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 Denies family hx of urothelial CA. Denies flank pain or sx of infection. Discussed potential etiologies and implications of hematuria with patient. These include: Prostatic disease, trauma, Tumor, infection/inflammation, stones, obstructive uropathy (urolithiasis, stricture, etc), nephritis, thrombosis, and hematologic. Urologic malignancy is more common in patients with gross hematuria (23%) than in patient with microscopic hematuria (5%). In adults with microscopic hematuria, the initial evaluation fails to identify an etiology in 43% of patients. Approximately 1-3% of these patients eventually develop a urologic malignancy. In adults with gross hematuria, the initial evaluation fails to identify an etiology in 8% of patients. Approximately, 18% of these patients eventually develop a urologic malignancy. Work-up needed: 1. Urine cytology/FISH 2. CT Urogram 3. Cystoscopy The patient is aware that a distinct etiology of the hematuria may not be clear upon conclusion of the workup. The rationale for this workup has been discussed, and all questions have been answered. Recommend he increase water intake and limit activity in the meantime. ER for fever, chills, NV, severe flank pain, inability to urinate, dark merlot urine -Urine sent for cytology (not even urine for FISH) -Schedule CT Urogram at [facility]. Order placed. -Schedule cysto. The risks and benefits for cystoscopy have been discussed. The risks include bleeding, infection, and irritation of the bladder and urinary channel, among others. The patient, after being informed of procedural details and after questions have been answered, wishes to proceed. Full informed consent has been obtained. Will order Local anesthesia. -F/U pending cysto, or sooner if needed -ER precautions above Ordered: ciprofloxacin, 500 mg = 1 tab(s), Oral, As Directed, Take one tab the day before the procedure. Then take the 2nd tab after the procedure has been completed., # 2 tab(s), Refills(s) 0, Pharmacy: [facility]/pharmacy #[id number], 178, cm, 12/24/24 8:54:00 EDT, Height/Length Dosing... CT Urogram 2. Elevated PSA (R97.20: Elevated prostate specific antigen [PSA]) PSA: 03/08/20 - 4.79 06/03/21 - 5.03 04/26/22 - 4.79 01/05/23 - 5.20 & 16.9% (Dutasteride 10.4) 06/29/23 - 4.13 (Dutasteride 8.26) Stopped Dutasteride 07/02/23. 01/04/24 - 7.17 MRI 03/10/19 at [facility] - negative. TRUS/bx 2008 - negative. Prostate MRI 07/30/23 [facility] - Neg. -PSA due in December 2024 -Will postpone f/u visit w/ PSA on 01/09/25 until completion of #1. Pt understands and agrees with plan. Ordered: 1126F Pain severity quantified; no pain present Current tobacco non-user 1036F Functional status assessed 1170F Medication list documented in medical record 1159F Most recent diastolic blood pressure <80 mm Hg 3078F Review of all meds by a prescribing practitioner or clinical pharmacist documented in EHR 1160F Systolic BP <130 mm Hg (Most Recent) 3074F Urnls Dip Stick Auto w/o Microscopy POC 12301 3. Kidney stones (N20.0: Calculus of kidney) KUB 10/05/21 - [...] mm calculus in RIP no longer id'd. S/p cysto, R UD, R urs, laser litho or large R ureteral stone, R pyleo, laser litho of mult R renal stones, R stent placement 03/06/24 - No remaining stones after the procedure. No adui's plaques noted. Stone analysis - 80% CaOx mono, 10% CaOx di, 10% uric acid. S/p cysto, R stent removal 03/14/24. KUB 09/02/24 [facility] - Kidneys are partially obscured. There is an irregular stone or clustered stones at the RLP 6-7 mm. No L sided stones. CHET [facility] 09/09/24 - Right midpole cyst, measures 15 x 11 x 14 mm. Right inferior cyst 4.9 x 4.9 x 6.2 cm. Suspected irregular stone or cluster of stones still visualized at RLP, measuring 11 x 12 x 11 mm. No hydro. Prostate hypertrophy 5.5 x 5.3 x 6.9 cm. Taking Potassium Citrate 10 mEq bid. Last visit, having intermittent dull ache in his R flank, pain 2/10. CHET complete, pt informed of results. Stones thought to be in meat of kidney, adjacent to renal cyst, which does not usually cause pain. He denies flank pain or stone events since last visit. -Cont sx monitoring Ordered: 1126F Pain severity quantified; no pain present Current tobacco non-user 1036F Functional status assessed 1170F Medication list documented in medical record 1159F Most recent diastolic blood pressure <80 mm Hg 3078F Review of all meds by a prescribing practitioner or clinical pharmacist documented in EHR 1160F Systolic BP <130 mm Hg (Most Recent) 3074F Urnls Dip Stick Auto w/o Microscopy POC 01933 4. BPH with urinary obstruction (N40.1: Benign prostatic hyperplasia with lower urinary tract symptoms) S/p TURP 08/17/22 - chronic prostatitis. And TURP 09/06/16 and 04/21/10. Prostate MRI 07/30/23 [facility] - Prostate volume 89 mL. UA neg. IPSS 7 (8). No BPH meds. Follow-up With When Contact Information SOFIYA MAGANA, Andrea [place], [address] [place] [address]- Additional Instructions: F/U pending cysto Patient Education Hematuria, Adult Problem List/Past Medical History Ongoing BPH with urinary obstruction Elevated PSA Gross hematuria History of kidney stones Kidney stones Historical No qualifying data Procedure/Surgical History Cystoscopic removal of ureteric stent (08/29/2022), TURP - Transurethral resection of prostate (08/17/2022), ESWL of kidney (10/06/2021), Cystoscopy (03/12/2020), TURP - Transurethral resection of prostate (08/31/2016), Cystoscopy (07/04/2016), Cystoscopy (09/30/2014), TURP - Transurethral resection of prostate (04/21/2010), Urodynamics (02/04/2010), Transrectal biopsy of prostate using ultrasound (US) guidance (07/2008), Cystoscopy (07/2005), Appendectomy, Tonsillectomy. Medications Fish Oil 500 mg oral capsule, 1000 mg= 2 cap(s), Oral, TID potassium CITRATE 10 mEq ER Tab, 10 mEq= 1 tab(s), Oral, BID, 3 refills Skyrizi Pen 150 mg/mL subcutaneous solution, 150 mg tamsulosin 0.4 mg Cap, 0.4 mg= 1 cap(s), Oral, Daily Vitamin D3 Allergies Bactrim DS (Unknown) sulfa drugs (Itchy, Hives) Social History Alcohol - Denies Alcohol Use, 11/11/2018 Past. Beer. 1-2 times per month., 09/08/2024 Substance Abuse - Denies Substance Abuse, 11/11/2018 Never., 12/22/2024 Tobacco - Denies Tobacco Use, 02/10/2019 Never (less than 100 in lifetime) Tobacco Use:. Never Smokeless Tobacco Use:. Yes, 12/24/2024 Family History Cancer: Father. Parkinsons: Mother. Primary malignant neoplasm of female genital organ: Sister. Primary malignant neoplasm of lung: Sister. Renal stone: Brother. Immunizations Vaccine Date Status SARS-CoV-2 (COVID-19) mRNAMUL.ORD![id number] 03/03/2022 Recorded SARS-CoV-2 (COVID-19) mRNA-1273 vaccine 08/20/2021 Recorded SARS-CoV-2 (COVID-19) mRNA-1273 vaccine 03/2021 Recorded SARS-CoV-2 (COVID-19) mRNA-1273 vaccine 02/20/2021 Recorded SARS-CoV-2 (COVID-19) mRNA-1273 vaccine 01/23/2021 Recorded diphtheria/pertussis, acel/tetanus adult 06/27/2014 Recorded Lab Results Ambulatory Point of Care Results Bilirubin Urine Dipstick: 1+ Small (12/24/24 08:43:00) Blood Urine Dipstick: 3+ Large (12/24/24 08:43:00) Glucose Urine Dipstick: Negative (12/24/24 08:43:00) Ketones Urine Dipstick: Negative (12/24/24 08:43:00) Leukocytes Urine Dipstick: Negative (12/24/24 08:43:00) Nitrite Urine Dipstick: Negative (12/24/24 08:43:00) Protein Urine Dipstick: 2+ (100 mg/dl) (12/24/24 08:43:00) Specific [place] Urine Dipstick: 1.025 (12/24/24 08:43:00) Urine Appearance Urine Dipstick: Clear (12/24/24 08:43:00) Urine Color Urine Dipstick: Yellow (12/24/24 08:43:00) Urobilinogen Urine Dipstick: Normal 0.2-1 EU/dl (12/24/24 08:43:00) pH Urine Dipstick: 6 (12/24/24 08:43:00) Result Comment: Electronical ly Signed By: Estephania Brown PA-C\.harry\Date and Time Signed: 12/24/24 10:16 EDT AMBULATORY VISIT SUMMARY Observed: 12/24 8:30 AM Status: F Source: 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 Your Care Team Attending Physician - Stephanie PEREZ, Estephania Primary Care Physician - VALERIE PERSAUD DO This Is Your Medications List cholecalciferol (Vitamin D3) omega-3 polyunsaturated fatty acids (Fish Oil 500 mg oral capsule) potassium citrate (potassium CITRATE 10 mEq ER Tab) risankizumab (Skyrizi Pen 150 mg/mL subcutaneous solution) tamsulosin (tamsulosin 0.4 mg Cap) Procedures Performed Cystoscopic removal of ureteric stent (08/29/2022), TURP - Transurethral resection of prostate (08/17/2022), ESWL of kidney (10/06/2021), Cystoscopy (03/12/2020), TURP - Transurethral resection of prostate (08/31/2016), Cystoscopy (07/04/2016), Cystoscopy (09/30/2014), TURP - Transurethral resection of prostate (04/21/2010), Urodynamics (02/04/2010), Transrectal biopsy of prostate using ultrasound (US) guidance (07/2008), Cystoscopy (07/2005), Appendectomy, Tonsillectomy. Discharge Vitals Temperature (Tympanic) 37 ???C Heart Rate (Peripheral) 56 Respiratory Rate 16 Blood Pressure 130/74 Height 178 cm Height 70 in Weight 81.3 kg Weight 179.236 lb BMI 25.66 Medications What How Much When Instructions Unchanged cholecalciferol (Vitamin D3) Unchanged omega-3 polyunsaturated fatty acids (Fish Oil 500 mg oral capsule) 2 Capsules By Mouth 3 times a day Unchanged potassium citrate (potassium CITRATE 10 mEq ER Tab) 1 Tablets By Mouth 2 times a day Unchanged risankizumab (Skyrizi Pen 150 mg/ mL subcutaneous solution) 150 Milligram Unchanged tamsulosin (tamsulosin 0.4 mg Cap) 1 Capsules By Mouth Every day Allergies Bactrim DS (Unknown) sulfa drugs (Itchy, Hives) Problems Ongoing - Any problem that you are currently receiving treatment for. BPH with urinary obstruction Elevated PSA Gross hematuria History of kidney stones Kidney stones Patient Survey You may receive a survey via text or e-mail asking about your office visit. Please share your experience with us by completing your survey. We appreciate your feedback and thank you for choosing us for your care. Patient Portal You may access all of your results and other medical record information on our secure patient portal. If you are not signed up for this yet, please contact [employer] at [phone] to get signed up today. Language Information Language assistance services are available as needed. PATIENT EDUCATION Observed: 09/08/2024 3:53 PM Status: F Source: [facility] Patient Education Nephrology Dietary Guidelines to Help [...] for following this plan? Reading food labels ??? Choose foods with no salt added or low-salt labels. Limit your salt (sodium) intake to less than 1,500 mg a day. ??? Choose foods with calcium for each meal and snack. Try to eat about 300 mg of calcium at each meal. Foods that contain 200?500 mg of calcium a serving include: ? 8 oz (237 mL) of milk, gkybuid-yuxrmcaexkgi-dwukl milk, and calcium- fortifiedfruit juice. Calcium-fortified means that calcium has been [...] much calcium is recommended for you. Shopping ??? Buy plenty of fresh fruits and vegetables. Most people do not need to avoid fruits and vegetables, even if these foods contain nutrients that may contribute to kidney stones. ??? When shopping for convenience foods, choose: ? Whole pieces of fruit. ? Pre-made salads with dressing on the side. ? Low-fat fruit and yogurt smoothies. ??? Avoid buying frozen meals or prepared deli foods. These can be high in sodium. ??? Look for foods with live cultures, such as yogurt and kefir. ??? Choose high-fiber grains, such as whole-wheat breads, oat bran, and wheat cereals. Cooking ??? Do not add salt to food when cooking. Place a salt shaker on the table and allow each person to add their own salt to taste. ??? Use vegetable protein, such as beans, textured vegetable protein (TVP), or tofu, instead of meat in pasta, casseroles, and soups. Meal planning ??? Eat less salt, if told by your dietitian. To do this: ? Avoid eating processed or pre-made food. ? Avoid eating fast food. ??? Eat less animal protein, including cheese, meat, poultry, or fish, if told by your dietitian. To do this: ? Limit the number of times you have meat, poultry, fish, or cheese each week. Eat a diet free of meat at least 2 days a week. ? Eat only one serving each day of meat, poultry, fish, or seafood. ? When you prepare animal proteins, cut pieces into small portion sizes. For most meat and fish, one serving is about the size of the palm of your hand. ??? Eat at least five servings of fresh fruits and vegetables each day. To do this: ? Keep fruits and vegetables on hand for snacks. ? Eat one piece of fruit or a handful of berries with breakfast. ? Have a salad and fruit at lunch. ? Have two kinds of vegetables at dinner. ??? You may be told to limit foods that are high in a substance called oxalate. These include: ? Spinach (cooked), rhubarb, beets, sweet potatoes, and Afghan chard. ? Peanuts. ? Potato chips, nigerian fries, and baked potatoes with skin on. ? Nuts and nut products. ? Chocolate. ??? If you regularly take a diuretic medicine, make sure to eat at least 1 or 2 servings of fruits or vegetables that are high in potassium each day. These include: ? Avocado. ? Banana. ? [place], prune, carrot, or tomato juice. ? Baked potato. ? Cabbage. ? Beans and split peas. Lifestyle ??? Drink enough fluid to keep your urine pale yellow. This is the most important thing you can do. Spread your fluid intake throughout the day. ??? If you drink alcohol: ? Limit how much you have to: ? 0?1 drink a day for women who are not . ? 0?2 drinks a day for men. ? Know how much alcohol is in your drink. In the [place] one drink equals one 12 oz bottle of beer (355 mL), one 5 oz glass of wine (148 mL), or one 1? oz glass of hard liquor (44 mL). ??? Lose weight if told by your health care provider. Work with your dietitian to find an eating plan and weight loss strategies that work best for you. General information ??? Talk to your health care provider and dietitian about taking daily supplements. Depending on your health and the cause of your kidney stones, you may be told: ? Do not take high-dose supplements of vitamin C (1,000 mg a day or more). ? To take a calcium supplement. ? To take a daily probiotic supplement. ? To take other supplements such as magnesium, fish oil, or vitamin B6. ??? Take pmjc-nht-nsiaxeo and prescription medicines only as told by [...] Casseroles. Pizza. Lasagna. Frozen meals. Potato chips. [place] fries. The items listed above may not [...] Contact a dietitian for more information. Summary ??? Kidney stones are deposits of minerals and salts that form inside your kidneys. ??? You can lower your risk of kidney stones by making changes to your diet. ??? The most important thing you can do is drink enough fluid. Drink enough fluid to keep your urine pale yellow. ??? Talk to your dietitian about how much calcium you should have each day, and eat less salt and animal protein as told by your dietitian. This information is not intended to replace advice given to you by your health care provider. Make sure you discuss any questions you have with your health care provider. Document Revised: 06/29/2022 Document Reviewed: 06/29/2022 [employer] Patient Education ? 2023 [employer] AMBULATORY VISIT SUMMARY Observed: 09/08 2:16 PM Status: F Source: [facility] Ambulatory Visit Summary LOKESH PONCE :1955 Visit Date:09/08/2024 Ambulatory Visit Instructions Your Diagnosis Kidney stones Right flank pain Elevated PSA BPH with urinary obstruction Tests Performed US Renal -- Results Pending -- Please visit your patient portal for your results or contact your primary care physician. Your Care Team Attending Physician - Andrea MONTIEL MD Primary Care Physician - VALERIE PERSAUD DO This Is Your Medications List potassium citrate (potassium CITRATE 10 mEq ER Tab) tamsulosin (tamsulosin 0.4 mg Cap) Contact prescribing physician if questions or concerns cholecalciferol (Vitamin D3) omega-3 polyunsaturated fatty acids (Fish Oil 500 mg oral capsule) risankizumab (Skyrizi Pen 150 mg/mL subcutaneous solution) Procedures Performed Cystoscopic removal of ureteric stent (08/29/2022), TURP - Transurethral resection of prostate (08/17/2022), ESWL of kidney (10/06/2021), Cystoscopy (03/12/2020), TURP - Transurethral resection of prostate (08/31/2016), Cystoscopy (07/04/2016), Cystoscopy (09/30/2014), TURP - Transurethral resection of prostate (04/21/2010), Urodynamics (02/04/2010), Transrectal biopsy of prostate using ultrasound (US) guidance (07/2008), Cystoscopy (07/2005), Appendectomy, Tonsillectomy. Discharge Vitals Temperature (Temporal Artery) 37 ???C Heart Rate (Peripheral) 68 Respiratory Rate 16 Blood Pressure 138/81 Height 178 cm Height 70 in Weight 84.2 kg Weight 185.629 lb BMI 26.57 What to do next Scheduled Follow-Up Appointments Sunday 10:45 AM EDT With: Andrea MONTIEL MD Where: [facility] [address] [place] [address]- You Need to Schedule the Following Appointments Follow Up with Andrea MONTIEL MD, URL When: Where: [facility] [address], [place] [address]- Medications What How Much When Instructions Unchanged potassium citrate (potassium CITRATE 10 mEq ER Tab) 1 Tablets By Mouth 2 times a day Unchanged tamsulosin (tamsulosin 0.4 mg Cap) 1 Capsules By Mouth Every day Unchanged cholecalciferol (Vitamin D3) Contact prescribing physician if questions or concerns Unchanged omega-3 polyunsaturated fatty acids (Fish Oil 500 mg oral capsule) 2 Capsules By Mouth 3 times a day Contact prescribing physician if questions or concerns Unchanged risankizumab (Skyrizi Pen 150 mg/ mL subcutaneous solution) 150 Milligram Contact prescribing physician if questions or concerns Allergies Bactrim DS (Unknown) sulfa drugs (Itchy, Hives) Problems Ongoing - Any problem that you are currently receiving treatment for. BPH with urinary obstruction Elevated PSA History of kidney stones Kidney stones Patient Survey You may receive a survey via text or e-mail asking about your office visit. Please share your experience with us by completing your survey. We appreciate your feedback and thank you for choosing us for your care. Education Materials Dietary Guidelines to Help Prevent Kidney Stones [...] for following this plan? Reading food labels ??? Choose foods with no salt added or low-salt labels. Limit your salt (sodium) intake to less than 1,500 mg a day. ??? Choose foods with calcium for each meal and snack. Try to eat about 300 mg of calcium at each meal. Foods that contain 200???500 mg of calcium a serving include: ? 8 oz (237 mL) of milk, safvoht-pdopypgclgzh-vecik milk, and calcium- fortifiedfruit juice. Calcium-fortified means that calcium has been [...] of sardines or mackerel. Most people need 1,000???1,500 mg of calcium a day. Talk to your dietitian about how much calcium is recommended for you. Shopping ??? Buy plenty of fresh fruits and vegetables. Most people do not need to avoid fruits and vegetables, even if these foods contain nutrients that may contribute to kidney stones. ??? When shopping for convenience foods, choose: ? Whole pieces of fruit. ? Pre-made salads with dressing on the side. ? Low-fat fruit and yogurt smoothies. ??? Avoid buying frozen meals or prepared deli foods. These can be high in sodium. ??? Look for foods with live cultures, such as yogurt and kefir. ??? Choose high-fiber grains, such as whole-wheat breads, oat bran, and wheat cereals. Cooking ??? Do not add salt to food when cooking. Place a salt shaker on the table and allow each person to add their own salt to taste. ??? Use vegetable protein, such as beans, textured vegetable protein (TVP), or tofu, instead of meat in pasta, casseroles, and soups. Meal planning ??? Eat less salt, if told by your dietitian. To do this: ? Avoid eating processed or pre-made food. ? Avoid eating fast food. ??? Eat less animal protein, including cheese, meat, poultry, or fish, if told by your dietitian. To do this: ? Limit the number of times you have meat, poultry, fish, or cheese each week. Eat a diet free of meat at least 2 days a week. ? Eat only one serving each day of meat, poultry, fish, or seafood. ? When you prepare animal proteins, cut pieces into small portion sizes. For most meat and fish, one serving is about the size of the palm of your hand. ??? Eat at least five servings of fresh fruits and vegetables each day. To do this: ? Keep fruits and vegetables on hand for snacks. ? Eat one piece of fruit or a handful of berries with breakfast. ? Have a salad and fruit at lunch. ? Have two kinds of vegetables at dinner. ??? You may be told to limit foods that are high in a substance called oxalate. These include: ? Spinach (cooked), rhubarb, beets, sweet potatoes, and Afghan chard. ? Peanuts. ? Potato chips, nigerian fries, and baked potatoes with skin on. ? Nuts and nut products. ? Chocolate. ??? If you regularly take a diuretic medicine, make sure to eat at least 1 or 2 servings of fruits or vegetables that are high in potassium each day. These include: ? Avocado. ? Banana. ? [place], prune, carrot, or tomato juice. ? Baked potato. ? Cabbage. ? Beans and split peas. Lifestyle ??? Drink enough fluid to keep your urine pale yellow. This is the most important thing you can do. Spread your fluid intake throughout the day. ??? If you drink alcohol: ? Limit how much you have to: ? 0???1 drink a day for women who are not . ? 0???2 drinks a day for men. ? Know how much alcohol is in your drink. In the [place] one drink equals one 12 oz bottle of beer (355 mL), one 5 oz glass of wine (148 mL), or one 1??? oz glass of hard liquor (44 mL). ??? Lose weight if told by your health care provider. Work with your dietitian to find an eating plan and weight loss strategies that work best for you. General information ??? Talk to your health care provider and dietitian about taking daily supplements. Depending on your health and the cause of your kidney stones, you may be told: ? Do not take high-dose supplements of vitamin C (1,000 mg a day or more). ? To take a calcium supplement. ? To take a daily probiotic supplement. ? To take other supplements such as magnesium, fish oil, or vitamin B6. ??? Take bqam-psa-upvfpmb and prescription medicines only as told by [...] Casseroles. Pizza. Lasagna. Frozen meals. Potato chips. Nauruan fries. The items listed above may not [...] Contact a dietitian for more information. Summary ??? Kidney stones are deposits of minerals and salts that form inside your kidneys. ??? You can lower your risk of kidney stones by making changes to your diet. ??? The most important thing you can do is drink enough fluid. Drink enough fluid to keep your urine pale yellow. ??? Talk to your dietitian about how much calcium you should have each day, and eat less salt and animal protein as told by your dietitian. This information is not intended to replace advice given to you by your health care provider. Make sure you discuss any questions you have with your health care provider. Document Revised: 06/29/2022 Document Reviewed: 06/29/2022 [employer] Patient Education ??? 2023 [employer] UROLOGY OFFICE/CLINIC NOTE Observed: 12/2024 2:16 PM Status: F Source: [facility] Urology Office/Clinic Note Chief Complaint F/u with [facility] HPI Staff 8 month f/u with [facility] Dx: elevated PSA, kidney stone, BPH with obstruction, gross hematuria and epididymitis Potassium Citrate 10 mEq BID PSA due in December 2024 IPSS score of 8 today. Pt states that off and on he has some slight discomfort on his right side. Denies any urinary complaints at this time. Denies any visible blood at any time. History of Present Illness Tests reviewed: UA, [facility], op note I have reviewed the previous health record [...] Physical Exam Vitals & Measurements T: 37 ???C(Temporal Artery) HR: 68(Peripheral) RR: 16 BP: 138/81 HT: 70 in HT: 178 cm WT: 185.629 lb WT: 84.2 kg BMI: 26.57 General Appearance: alert, no distress, well nourished, well developed male. Assessment/Plan GUILLERMINA 20. 1. Kidney stones (N20.0: Calculus of kidney) KUB 10/05/21 - [...] mm calculus in RIP no longer id'd. S/p cysto, R UD, R urs, laser litho or large R ureteral stone, R pyleo, laser litho of mult R renal stones, R stent placement 03/06/24 - No remaining stones after the procedure. No audi's plaques noted. Stone analysis - 80% CaOx mono, 10% CaOx di, 10% uric acid. S/p cysto, R stent removal 03/14/24. KUB 09/02/24 [facility] - Kidneys are partially obscured. There is an irregular stone or clustered stones at the RLP 6-7 mm. No L sided stones. Taking Potassium Citrate 10 mEq bid. Intermittent dull ache in his R flank, pain 2/10. It is not limiting. Feels like it did in March. Reviewed imaging with pt, unfortunately, we are unable to view this image through the [facility] portal. He did not have any remaining stones after last laser litho. Question if pt is not passing the stone dust that are congealing to form stone cluster. Very unlikely that he is forming new stones that quickly. Will have pt complete CHET to assess for stones and hydro given his pain. -Schedule CHET, will call pt with results 2. Right flank pain (R10.9: Unspecified abdominal pain) See #1. 3. Elevated PSA (R97.20: Elevated prostate specific antigen [PSA]) PSA: 03/08/20 - 4.79 06/03/21 - 5.03 04/26/22 - 4.79 01/05/23 - 5.20 & 16.9% (Dutasteride 10.4) 06/29/23 - 4.13 (Dutasteride 8.26) Stopped Dutasteride 07/02/23. 01/04/24 - 7.17 MRI 03/10/19 at [facility] - negative. TRUS/bx 2008 - negative. Prostate MRI 07/30/23 [facility] - Neg. Follow up 01/09/25 for 1 yr with PSA or sooner if needed. Pt understands and agrees with plan. -PSA due in December 2024 4. BPH with urinary obstruction (N40.1: Benign prostatic hyperplasia with lower urinary tract symptoms) S/p TURP 08/17/22 - chronic prostatitis. And TURP 09/06/16 and 04/21/10. Prostate MRI 07/30/23 [facility] - Prostate volume 89 mL. UA neg. IPSS 8. No BPH meds. Follow-up With When Contact Information SOFIYA MAGAAN, Andrea Layton, URL [facility] [address], [place] [address]- Additional Instructions: Schedule CHET, will call pt with results then 01/09/25 for 1 yr with PSA F&T Patient Education Dietary Guidelines to Help Prevent Kidney Stones I, Bibiana Yost, personally scribed for Dr. Montiel on 09/08/2024 16:04:39. . Documentation recorded by the scribe, Bibiana Yost, accurately reflects the services(s) I performed and decisions made by me. Authenticated by Dr. Montiel on 09/08/2024 16:09:10. Problem List/Past Medical History Ongoing BPH with urinary obstruction Elevated PSA History of kidney stones Kidney stones Historical No qualifying data Procedure/Surgical History Cystoscopic removal of ureteric stent (08/29/2022), TURP - Transurethral resection of prostate (08/17/2022), ESWL of kidney (10/06/2021), Cystoscopy (03/12/2020), TURP - Transurethral resection of prostate (08/31/2016), Cystoscopy (07/04/2016), Cystoscopy (09/30/2014), TURP - Transurethral resection of prostate (04/21/2010), Urodynamics (02/04/2010), Transrectal biopsy of prostate using ultrasound (US) guidance (07/2008), Cystoscopy (07/2005), Appendectomy, Tonsillectomy. Medications Fish Oil 500 mg oral capsule, 1000 mg= 2 cap(s), Oral, TID potassium CITRATE 10 mEq ER Tab, 10 mEq= 1 tab(s), Oral, BID, 3 refills Skyrizi Pen 150 mg/mL subcutaneous solution, 150 mg tamsulosin 0.4 mg Cap, 0.4 mg= 1 cap(s), Oral, Daily Vitamin D3 Allergies Bactrim DS (Unknown) sulfa drugs (Itchy, Hives) Social History Alcohol - Denies Alcohol Use, 11/11/2018 Past. Beer. 1-2 times per month., 09/08/2024 Substance Abuse - Denies Substance Abuse, 11/11/2018 Tobacco - Denies Tobacco Use, 02/10/2019 Never (less than 100 in lifetime) Tobacco Use:. Never Smokeless Tobacco Use:. Yes, 09/08/2024 Family History Cancer: Father. Parkinsons: Mother. Primary malignant neoplasm of female genital organ: Sister. Primary malignant neoplasm of lung: Sister. Renal stone: Brother. Immunizations Vaccine Date Status SARS-CoV-2 (COVID-19) mRNAMUL.ORD![id number] 03/03/2022 Recorded SARS-CoV-2 (COVID-19) mRNA-1273 vaccine 08/20/2021 Recorded SARS-CoV-2 (COVID-19) mRNA-1273 vaccine 03/2021 Recorded SARS-CoV-2 (COVID-19) mRNA-1273 vaccine 02/20/2021 Recorded SARS-CoV-2 (COVID-19) mRNA-1273 vaccine 01/23/2021 Recorded diphtheria/pertussis, acel/tetanus adult 06/27/2014 Recorded Lab Results Ambulatory Point of Care Results Bilirubin Urine Dipstick: Negative (09/08/24 15:20:00) Blood Urine Dipstick: Trace-intact (09/08/24 15:20:00) Glucose Urine Dipstick: Negative (09/08/24 15:20:00) Ketones Urine Dipstick: Negative (09/08/24 15:20:00) Leukocytes Urine Dipstick: Negative (09/08/24 15:20:00) Nitrite Urine Dipstick: Negative (09/08/24 15:20:00) Protein Urine Dipstick: Trace (09/08/24 15:20:00) Specific [place] Urine Dipstick: 1.020 (09/08/24 15:20:00) Urine Appearance Urine Dipstick: Clear (09/08/24 15:20:00) Urine Color Urine Dipstick: Yellow (09/08/24 15:20:00) Urobilinogen Urine Dipstick: Normal 0.2-1 EU/dl (09/08/24 15:20:00) pH Urine Dipstick: 6 (09/08/24 15:20:00) Result Comment: Electronical ly Signed By: Andrea MONTIEL MD\.br\Date and Time Signed: 09/08/24 16:09 EDT\.br\Electronically Co-Signed By: Bibiana Yost\.br\Date and Time Co-Signed: 09/08/24 16:05 EDT AMBULATORY VISIT SUMMARY Observed: 01/06 1:04 PM Status: F Source: [facility] Ambulatory Visit Summary PONCELOKESH Espinal Berkley :1955 Visit Date:01/07/2024 Ambulatory Visit Instructions Your Diagnosis Elevated PSA BPH with urinary obstruction Kidney stone Gross hematuria Epididymitis Tests Performed XR Abdomen 1 View -- Results Pending -- Please visit your patient portal for your results or contact your primary care physician. Your Care Team Attending Physician - Andrea MONTIEL MD Primary Care Physician - VALERIE PERSAUD DO This Is Your Medications List potassium [...] Follow-Up Appointments Sunday 10:45 AM EDT With: Andrea MONTIEL MD Where: [facility] [address] [address] You Need to Schedule the Following Appointments Follow Up with Andrea MONTIEL MD, URL When: Comments: 1 yr w/ PSA Where: [facility] [address], [place] [address]- [phone] Medications What How Much When Instructions Unchanged [...] Where to find more information ? The [employer]: www.cancer.org ? [employer]: www.auanet.org Contact a health care [...] gland adds fluid to semen during ejaculation. ? Prostate cancer screening may identify cancer at an early stage, when the cancer can be treated more easily and is less likely to have spread to other areas of the body. ? The prostate-specific antigen (PSA) test is the recommended screening test for prostate cancer, but it has associated risks. ? Discuss the risks and benefits of prostate [...] provider. Document Revised: 09/12/2021 Document Reviewed: 09/12/2021 [employer] Patient Education ? 2023 [employer] UROLOGY OFFICE/CLINIC NOTE Observed: 10/2023 12:40 PM Status: F Source: [facility] Urology Office/Clinic Note Chief Complaint 6 mth [...] 07/02/23. 01/04/24 - 7.17 MRI 03/10/19 at [facility] - negative. TRUS/bx 2008 - negative. Prostate MRI 07/30/23 [facility] - Neg. PSA has decreased from prior. No indication for further intervention, will cont to monitor. 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 S/p TURP 08/17/22 - chronic prostatitis. Prostate MRI 07/30/23 [facility] - Prostate volume 89 mL. Stopped Dutasteride [...] Follow-up With When Contact Information SOFIYA MAGANA, Andrea Layton, URL [facility] [address], [place] [address] [phone] Additional Instructions: 1 yr w/ PSA Patient Education Prostate Cancer Screening I, Marilu eMng, personally scribed for Dr. Montiel on 01/07/2024 12:40:47. . Documentation recorded by the Marilu mercado, accurately reflects the services(s) I performed and decisions made by me. Authenticated by Dr. Montiel on 01/07/2024 12:43:03. Problem List/Past Medical History Ongoing Back pain BPH with urinary obstruction Elevated PSA Epididymitis Flank pain Foreign body in bladder Gross hematuria Hematuria History of kidney stones Kidney stone Prostatitis Weak urinary stream Historical No qualifying data Procedure/Surgical History Cystoscopic removal of ureteric stent (08/29/2022), TURP - Transurethral resection of prostate (08/17/2022), Cystoscopy (03/12/2020), TURP - Transurethral resection of prostate (08/31/2016), Cystoscopy (07/04/2016), Cystoscopy (09/30/2014), TURP - Transurethral resection of prostate (04/21/2010), Urodynamics (02/04/2010), Transrectal biopsy of prostate using ultrasound (US) guidance (07/2008), Cystoscopy (07/2005), Appendectomy, Tonsillectomy. Medications Fish Oil, Oral Fish Oil 500 mg oral capsule, 1000 mg= 2 cap(s), Oral, TID potassium CITRATE 10 mEq ER Tab, 10 mEq= 1 tab(s), Oral, BID, 3 refills Taltz Autoinjector, SubCutaneous, q4wk Vitamin D3 Allergies Bactrim DS (Unknown) sulfa drugs (Itchy, Hives) Social History Alcohol - Denies Alcohol Use, 11/11/2018 Substance Abuse - Denies Substance Abuse, 11/11/2018 Tobacco - Denies Tobacco Use, 02/10/2019 Never (less than 100 in lifetime) Tobacco Use:. Never Smokeless Tobacco Use:. Household tobacco concerns: No. Yes, 01/07/2024 Family History Cancer: Father. Parkinsons: Mother. Primary malignant neoplasm of female genital organ: Sister. Primary malignant neoplasm of lung: Sister. Renal stone: Brother. Immunizations Vaccine Date Status SARS-CoV-2 (COVID-19) mRNAMUL.ORD![id number] 03/03/2022 Recorded SARS-CoV-2 (COVID-19) mRNA-1273 vaccine 08/20/2021 Recorded SARS-CoV-2 (COVID-19) mRNA-1273 vaccine 03/2021 Recorded SARS-CoV-2 (COVID-19) mRNA-1273 vaccine 02/20/2021 Recorded SARS-CoV-2 (COVID-19) mRNA-1273 vaccine 01/23/2021 Recorded diphtheria/pertussis, acel/tetanus adult 06/27/2014 Recorded Result Comment: Electronical ly Signed By: Andrea MONTIEL MD\.br\Date and Time Signed: 01/07/24 12:43 EDT\.br\Electronically Co-Signed By: Marilu Meng\.br\Date and Time Co-Signed: 01/07/24 12:41 EDT PATIENT EDUCATION Observed: 01/07/2024 12:32 PM Status: F Source: [facility] Patient Education Oncology Prostate Cancer Screening Prostate [...] Where to find more information ? The [employer]: www.cancer.org ? [employer]: www.auanet.org Contact a health care [...] gland adds fluid to semen during ejaculation. ? Prostate cancer screening may identify cancer at an early stage, when the cancer can be treated more easily and is less likely to have spread to other areas of the body. ? The prostate-specific antigen (PSA) test is the recommended screening test for prostate cancer, but it has associated risks. ? Discuss the risks and benefits of prostate [...] provider. Document Revised: 09/12/2021 Document Reviewed: 09/12/2021 [employer] Patient Education ? 2023 [employer] ALLERGIES DATE TYPE / CODE NAME / CODE REACTION SEVERITY SOURCE 09/21/2016 Drug Class~NON-CBO RD/[id number]( SNOMED CT) SULFA (SULFONAMIDE ANTIBIOTICS) [facility] Ambulatory [facility]PG DR/[id number]( SNOMED CT) sulfa drugs [id number] 12 [facility] /[id number]( SNOMED CT) Bactrim DS [id number] [facility] ENCOUNTERS ADMIT/DISCHARGE ACCOUNT NUMBER ADMITTING ENCOUNTER CLASS LOCATION SOURCE 12/24/2024/12/25/19 [id number] Estephania Brown Ambulatory FTBuildin g:FT LAB [facility] 12/24/2024/12/25/19 [id number] Ambulatory [facility] [place]:[facility] [place]: Exam 3 [facility] 10/27/2024/10/28/19 25 [id number] Ambulatory Building:NO MS DERM [facility] EPIC 09/08/2024/09/09/19 25 [id number] Ambulatory [facility] [place]:[facility] [place]: CD:[id number] 73 [facility] 07/21/2024/07/22/19 25 [id number] Ambulatory Buildin 0A [facility] Ambulatory PPG 06/03/2024/06/04/19 25 [id number] Ambulatory Buildin 0A [facility] 06/02/2024/06/03/19 25 [id number] Ambulatory Building:NO MS DERM [facility] 06/01/2024/06/02/19 25 [id number] Emergency Building:[facility]: 3Bed: 03 [facility] 04/23/2024/04/23/19 25 [id number] Ambulatory Buildin 0A [facility] 04/11/2024/04/11/19 25 [id number] Ambulatory Buildin 0A [facility] 04/07/2024/04/07/19 25 [id number] Ambulatory Building:NO MS DERM [facility] 03/14/2024/03/14/20 24 [id number] Ambulatory CD:[id number]: CD:[id number] [facility] 03/06/2024/03/06/20 24 [id number] Ambulatory CD:[id number] 97Building: CD:[id number] 37 [facility] 01/07/2024/01/07/20 24 [id number] Ambulatory [facility] [place]:[facility] [place]: Exam 3 [facility] PAYERS ENCOUNTER GUARANTOR PAYER SUBSCRIBER SOURCE 12/24/2024 EMILIE ARCEO: [id number]Tel: ~[phone] (HP) Primary Insurance:MEDICAREPolicy Number: [id number] Date:6745-96-34[address] [address], [place] [address]PJ: EMILIE ARAUJO [facility] 12/24/2024 Secondary Insurance:MEDICAL MUTUALPolicy Number: [id number] Date:2024-12-24 EMILIE ARAUJO [facility] 12/24/2024 EMILIE LUISB: [facility] 198Tel: ~[phone]) Primary Insurance:MEDICAREPolicy Number: [id number] Date:9847-89-61[address] [id number] [place], [place] [address]SD: EMILIE ARAUJO [facility] 12/24/2024 Secondary Insurance:MEDICAL MUTUALPolicy Number: [id number] Date:2024-09-09 EMILIE ARAUJO [facility] 10/27/2024 EMILIE LUISB: [place], [place] [address]Tel: (HP) Primary Insurance:MEDICAREPolicy Number: [id number] Date:3422-29-87Aqji Name:Medicare EMILIE ARCEO: [id number] [place] [address] [facility] EPIC 10/27/2024 Secondary Insurance:MEDICAL MUTUALPolicy Number: [id number] Date:2024-05-31 EMILIE LUISB: [id number] [place] [address] [facility] EPIC 09/08/2024 LOKESH LUISB: [facility] 198Tel: ~[phone] (HP) Primary Insurance:MEDICAREPolicy Number: [id number] Date:8529-75-64[address] [address]XY[place], [place] [address]ZU: LOKESH ARAUJO [facility] 09/08/2024 Secondary Insurance:MEDICAL MUTUALPolicy Number: [id number] Date:2024-09-09 LOKESH ARAUJO [facility] 07/21/2024 EMILIE LUISB: [address], [place] [address]Kwx: (HP) Primary Insurance:MEDICARE PART A & BPolicy Number: [id number] Date:2022-08-31 EMILIE LUISB: [id number], [place] [address]Sxo: (HP) [facility] 07/21/2024 Secondary Insura nce:MMO TRADITIONALPolicy Number: [id number] Date:2024-05-31 EMILIE LUISB: [id number], [place] [address]Zqp: (HP) [facility] 06/03/2024 EMILIE LUISB: [address], [place] [address]Qls: (HP) Primary Insurance:MEDICARE PART A & BPolicy Number: [id number] Date:2022-08-31 EMILIE LUISB: [id number] [address], [place] [address]Rgz: (HP) [facility] 06/03/2024 Secondary Insura nce:MMO TRADITIONALPolicy Number: [id number] Date:2024-05-31 EMILIE LUISB: [id number], [place] [address]Yhd: (HP) [facility] 06/02/2024 EMILIE LUISB: [address], [place] [address]Eje: (HP) Primary Insurance:[employer] MEDICAREPolicy Number: [id number] Date:2024-05-31 EMILIE LUISB: [id number] [place] [address] [facility] 06/01/2024 EMILIE LUISB: [address] [place] [address]Ahv: (HP) Primary Insurance:[facility] TRADITIONALPolicy Number: [id number] Date:2024-05-31 EMILIE LUISB: [id number], [place] [address]Nnq: (HP) [facility] 06/01/2024 Secondary Insurance:MEDICARE PART A & BPolicy Number: [id number] Date:2022-08-31 EMILIE LUISB: [id number] [facility] [address], [place] [address]Suq: (HP) [facility] 04/23/2024 EMILIE ARGUELLESCALEBB: [address] [address]Vic: (HP) Primary Insurance:[facility] HMO/PPO/TRUSTPolicy Number: [id number] Date:2014-07-26 SHIRIN ARGUELLESADOB: [id number] [address] [address]Nou: (HP) (WP) [facility] 04/11/2024 EMILIE ARGUELLESADOB: [address] [place] [address]Jzm: (HP) Primary Insurance:[facility] HMO/PPO/TRUSTPolicy Number: [id number] Date:2014-07-26 SHIRIN LIANG KINDRAADOB: [id number] [address] [address]Oib: (HP) (WP) [facility] 04/07/2024 EMILIE ARGUELLESADOB: STATE [address] [address]Zyf: (HP) Primary Insurance:BCBSPolicy Number: [id number] Date:2014-07-26 SHIRIN ARGUELLESADOB: [id number] [address] [facility] 04/07/2024 Secondary Insurance:MEDICAREPolicy Number: [id number] Date:[id number] Name:Medicare EMILIE ARGUELLESADOB: [id number] [address] [facility] 03/14/2024 LOKESH ARGUELLESADOB: [address]Tel: ~([phone] 19 (HP) Primary Insurance:AnthemPolicy Number: [id number] Date:[id number] [place] [address] [place] [address]BG: [facility] 03/06/2024 LOKESH ARGUELLESCALEBB: [address]Tel: ~([phone] 19 (HP) Primary Insurance:AnthemPolicy Number: [id number] Date:1673-97-95[address], [place] [address]NU: [facility] 01/07/2024 LOKESH Gooden KINDRAADOB: [address]Tel: ~([phone] (HP) Primary Insurance:AnthemPolicy Number: [id number] Date:2388-35-32[address] [address]YA: [facility] 01/07/2024 Secondary Insurance:MEDICAREPolicy Number: [id number] Date:9746-39-45[address] [address]QX: LOKESH ARAUJO [facility]
[2025-01-02 08:09] LABS: PSA, Free 1.93 ng/mL
== END 2024-12-31 16:37 | disposition home or self-care (01) ==
PROVIDERS: PCP Student in an Organized Health Care Education/Training Program; Visit Provider Urology
DX: R97.20 Elevated prostate specific antigen [PSA] (principal)
CPT/HCPCS: 36415; 84153; 84154